=== PATIENT | male | born 1960 | race Caucasian/White ===

== ENCOUNTER 2017-12-13 16:32 | Inpatient (IN) | payer BC ==
[2017-12-13] MEDS ORDERED: AMPICILLIN/SULBACTAM 3GM/VIAL ONE ×2 (16:56→23:59)
[2017-12-13] MEDS ORDERED: NA CHLORIDE 0.9% 100 ML IV ONE (16:57)
[2017-12-13] MEDS ORDERED: VANCOMYCIN/NS 1 gm 1 GM/250 ML BAG ONE (16:57)
[2017-12-13] MEDS ORDERED: NA CHLORIDE 0.9% 1,000 ML ONE (16:57)
--- NOTE | 2017-12-13 17:10 | ER ---
Nurse's Notes [facility] Name: Wiley Anne Age: 56 yrs Sex: Male : 1960 Arrival Date: 12/13/2017 Time: 16:35 Bed 27 Private MD: Jordan Juarez Diagnosis: Cellulitis and acute lymphangitis of other parts of limb-right thumb;Other synovitis and tenosynovitis, right hand-thumb Presentation: 12/13 16:39 Presenting complaint: Patient states: my thumb is infected, about a week ago, went to tw2 drBarbie put on amoxicillin and it has gotten so much worse. Transition of care: patient was not received from another setting of care. Onset of symptoms was December 13, 2017. Care prior to arrival: None. 16:39 Method Of Arrival: Ambulatory tw2 16:39 Acuity: JASMIN 3 tw2 Historical: - Allergies: 16:41 No Known Allergies; tw2 - Home Meds: 16:41 Imbruvica 140 mg Oral cap 3 caps once daily [Active]; Ventolin Rotahaler/Rotacaps Inhl tw2 daily [Active]; amoxicillin-pot clavulanate 875-125 mg Oral tab 1 tab every 12 hours [Active]; montelukast 5 mg oral chew 2 tabs once daily [Active]; - PMHx: 16:41 CLL; LYMPHOMA; tw2 - Immunization history:: Adult Immunizations up to date. - Social history:: Smoking status: Patient/guardian denies using tobacco. - Family history:: pertinent for. Screenin:00 Abuse screen: Denies threats or abuse. Nutritional screening: No deficits noted. kb1 Tuberculosis screening: No symptoms or risk factors identified. Fall Risk None identified. Assessment: 17:00 General: Appears in no apparent distress. Behavior is calm, cooperative. Pain: Denies kb1 pain. Neuro: Level of Consciousness is awake, alert, obeys commands, Oriented to person, place, time, situation. Cardiovascular: Patient's skin is warm and dry. Respiratory: Airway is patent. GI: No signs and/or symptoms were reported involving the gastrointestinal system. : No signs and/or symptoms were reported regarding the genitourinary system. Derm: Wound noted right thumb. 18:46 Reassessment: Patient appears in no apparent distress at this time. Patient and/or kb1 family updated on plan of care and expected duration. Pain level reassessed. Patient is alert, oriented x 3, equal unlabored respirations, skin warm/dry/pink. Warm blanket provided, notified will be admitted. Vital Signs: 16:40 BP 145 / 98; Pulse 63; Resp 18; Temp 98.5(O); Pulse Ox 98% on R/A; Weight 58.97 kg (R); tw2 Height 5 ft. 2 in. (157.48 cm); Pain 10/10; 18:47 BP 152 / 87; Pulse 60; Resp 18; Pulse Ox 96% ; kb1 16:40 Body Mass Index 23.78 (58.97 kg, 157.48 cm) tw2 ED Course: 16:35 Patient arrived in ED. as 16:35 Jordan Juarez MD is Private Physician. as 16:40 Triage completed. tw2 16:40 Arm band placed on. tw2 16:49 Elizabeth Melo, MOSES is Primary Nurse. kb1 16:49 Giovanny Miller MD is Attending Physician. bubba 17:00 Patient has correct armband on for positive identification. Bed in low position. Call kb1 light in reach. Side rails up X 1. Pulse ox on. NIBP on. 17:00 No provider procedures requiring assistance completed. Inserted saline lock: 20 gauge kb1 in left forearm, using aseptic technique. Blood collected. 17:07 Jordan Juarez MD is Hospitalizing Provider. bubba 17:28 EKG done, by cytology technologist. reviewed by Giovanny Miller MD. at1 17:36 X-ray completed. Portable x-ray completed in exam room. Patient tolerated procedure kc2 well. 17:37 Hand Right 3 View XRAY In Process Unspecified. EDMS 17:37 Chest Single View XRAY In Process Unspecified. EDMS 19:58 Patient admitted, IV remains in place. kb1 Administered Medications: 17:15 Drug: NS 0.9% 1000 ml Route: IV; Rate: 125 ml/hr; Site: left forearm; kb1 19:58 Follow up: IV Status: Infusion continued upon admission kb1 17:15 Drug: Unasyn 3 grams Route: IVPB; Infused Over: 30 mins; Site: left forearm; kb1 17:52 Follow up: IV Status: Completed infusion kb1 17:52 Drug: vancoMYCIN 1 grams Route: IVPB; Infused Over: 2 hrs; Site: left forearm; kb1 19:57 Follow up: IV Status: Completed infusion kb1 Outcome: 17:10 Decision to Hospitalize by Provider. bubba 19:58 Admitted to Tele accompanied by tech, family with patient, via stretcher, room 211, kb1 Report called to Mady LOPES 19:58 Condition: stable 19:58 Instructed on the need for admit. 20:05 Patient left the ED. kb1 Signatures: Dispatcher [employer] Giovanny Vega MD MD cha Martinez, Amelia as gonzales, Amanda, artificial candy maker EKG Tat1 Yuli Culver RN RN tw2 Laurie Ambrocio2 Elizabeth Melo, RN RN kb1
--- NOTE | 2017-12-13 17:10 | EDPHYS ---
Physician Documentation [facility] Name: Wiley Anne Age: 56 yrs Sex: Male : 1960 Arrival Date: 12/13/2017 Time: 16:35 Bed 27 Private MD: Jordan Juarez ED Physician Giovanny Miller HPI: 12/13 16:54 This 56 yrs old Male presents to ER via Ambulatory with complaints of Finger bubba Swelling. 16:54 The patient or guardian reports decreased range of motion, injury, pain, swelling, bubba tenderness. The complaints affect the IP of right thumb, MCP of right thumb and CMC of right thumb. Context: The problem was sustained at home, resulted from an unknown cause. Onset: The symptoms/episode began/occurred 5 day(s) ago. Associated signs and symptoms: The patient has no apparent associated signs or symptoms. The patient has not experienced similar symptoms in the past. Historical: - Allergies: 16:41 No Known Allergies; tw2 - Home Meds: 16:41 Imbruvica 140 mg Oral cap 3 caps once daily [Active]; Ventolin Rotahaler/Rotacaps Inhl tw2 daily [Active]; amoxicillin-pot clavulanate 875-125 mg Oral tab 1 tab every 12 hours [Active]; montelukast 5 mg oral chew 2 tabs once daily [Active]; - PMHx: 16:41 CLL; LYMPHOMA; tw2 - Immunization history:: Adult Immunizations up to date. - Social history:: Smoking status: Patient/guardian denies using tobacco. - Family history:: pertinent for. ROS: 16:54 Constitutional: Negative for fever, chills, and weight loss, Eyes: Negative for injury, bubba pain, redness, and discharge, ENT: Negative for injury, pain, and discharge, Neck: Negative for injury, pain, and swelling, Cardiovascular: Negative for chest pain, palpitations, and edema, Respiratory: Negative for shortness of breath, cough, wheezing, and pleuritic chest pain, Abdomen/GI: Negative for abdominal pain, nausea, vomiting, diarrhea, and constipation, Back: Negative for injury and pain, : Negative for injury, bleeding, discharge, and swelling, Skin: Negative for injury, rash, and discoloration, Neuro: Negative for headache, weakness, numbness, tingling, and seizure, Psych: Negative for depression, anxiety, suicide ideation, homicidal ideation, and hallucinations, Allergy/Immunology: Negative for hives, rash, and allergies, Endocrine: Negative for neck swelling, polydipsia, polyuria, polyphagia, and marked weight changes, Hematologic/Lymphatic: Negative for swollen nodes, abnormal bleeding, and unusual bruising. 16:54 : Positive for 16:54 MS/extremity: Positive for decreased range of motion, laceration, swelling, tenderness, of the lateral aspect of right hand, palmar aspect of distal phalanx of right thumb and palmar aspect of proximal phalanx of right thumb. Exam: 16:54 Constitutional: This is a well developed, well nourished patient who is awake, alert, bubba and in no acute distress. Head/Face: Normocephalic, atraumatic. Eyes: Pupils equal round and reactive to light, extra-ocular motions intact. Lids and lashes normal. Conjunctiva and sclera are non-icteric and not injected. Cornea within normal limits. Periorbital areas with no swelling, redness, or edema. ENT: Nares patent. No nasal discharge, no septal abnormalities noted. Tympanic membranes are normal and external auditory canals are clear. Oropharynx with no redness, swelling, or masses, exudates, or evidence of obstruction, uvula midline. Mucous membranes moist. Neck: Trachea midline, no thyromegaly or masses palpated, and no cervical lymphadenopathy. Supple, full range of motion without nuchal rigidity, or vertebral point tenderness. No Meningismus. Chest/axilla: Normal chest wall appearance and motion. Nontender with no deformity. No lesions are appreciated. Cardiovascular: Regular rate and rhythm with a normal S1 and S2. No gallops, murmurs, or rubs. Normal PMI, no JVD. No pulse deficits. Respiratory: Lungs have equal breath sounds bilaterally, clear to auscultation and percussion. No rales, rhonchi or wheezes noted. No increased work of breathing, no retractions or nasal flaring. Abdomen/GI: Soft, non-tender, with normal bowel sounds. No distension or tympany. No guarding or rebound. No evidence of tenderness throughout. Back: No spinal tenderness. No costovertebral tenderness. Full range of motion. Male : Normal genitalia with no discharge or lesions. Skin: Warm, dry with normal turgor. Normal color with no rashes, no lesions, and no evidence of cellulitis. Neuro: Awake and alert, GCS 15, oriented to person, place, time, and situation. Cranial nerves II-XII grossly intact. Motor strength 5/5 in all extremities. Sensory grossly intact. Cerebellar exam normal. Normal gait. Psych: Awake, alert, with orientation to person, place and time. Behavior, mood, and affect are within normal limits. 16:54 Musculoskeletal/extremity: ROM: full active range of motion, full passive range of motion, Circulation is intact in all extremities. Sensation intact. DVT Exam: negative Homans' sign noted on exam, no appreciated bluish discoloration, pain, swelling, tenderness, erythema, increased warmth, that is moderate, of the lateral aspect of right hand. Vital Signs: 16:40 BP 145 / 98; Pulse 63; Resp 18; Temp 98.5(O); Pulse Ox 98% on R/A; Weight 58.97 kg (R); tw2 Height 5 ft. 2 in. (157.48 cm); Pain 10/10; 18:47 BP 152 / 87; Pulse 60; Resp 18; Pulse Ox 96% ; kb1 16:40 Body Mass Index 23.78 (58.97 kg, 157.48 cm) tw2 MDM: 16:49 Patient medically screened. [facility] 16:58 Data reviewed: vital signs, nurses notes, lab test result(s), EKG, radiologic studies. [facility] 12/13 16:53 Order name: CBC with Diff [facility] 12/13 16:53 Order name: Comprehensive Metabolic Panel; Complete Time: 18:[address] [facility] 12/13 16:53 Order name: Hand Right 3 View XRAY; Complete Time: 18:[address] [facility] 12/13 16:59 Order name: PT-INR; Complete Time: 18:[address] [facility] 12/13 16:59 Order name: Ptt, Activated; Complete Time: 18:[address] [facility] 12/13 17:44 Order name: Manual Differential EDMS 12/13 16:53 Order name: Wound dressing; Complete Time: 18:[address] [facility] 12/13 16:59 Order name: EKG; Complete Time: 17:[address] [facility] 12/13 16:59 Order name: Chest Single View XRAY; Complete Time: 18:[address] [facility] 04/10 17:28 Order name: CONS Physician Consult [facility] 12/13 17:28 Order name: CONS Physician Consult [facility] 12/13 16:59 Order name: EKG - Nurse/Tech; Complete Time: 18:15 bubba Administered Medications: 17:15 Drug: NS 0.9% 1000 ml Route: IV; Rate: 125 ml/hr; Site: left forearm; kb1 19:58 Follow up: IV Status: Infusion continued upon admission kb1 17:15 Drug: Unasyn 3 grams Route: IVPB; Infused Over: 30 mins; Site: left forearm; kb1 17:52 Follow up: IV Status: Completed infusion kb1 17:52 Drug: vancoMYCIN 1 grams Route: IVPB; Infused Over: 2 hrs; Site: left forearm; kb1 19:57 Follow up: IV Status: Completed infusion kb1 Disposition: 12/13/17 17:10 Hospitalization ordered by Jordan Juarez for Observation. Preliminary diagnosis are Cellulitis and acute lymphangitis of other parts of limb - right thumb, Other synovitis and tenosynovitis, right hand - thumb. - Bed requested for Telemetry/MedSurg (observation). - Status is Observation. kb1 - Condition is Stable. - Problem is new. - Symptoms have improved. UTI on Admission? No Signatures: Dispatcher [employer] [facility] Giovanny Miller MD MD cha Gallardo, Ana ag Wise, Tara, RN RN tw2 Elizabeth Melo RN RN kb1
[2017-12-13] MEDS ORDERED: MORPHINE 4 MG/ML SYR IV PRN (17:24)
[2017-12-13 17:34] LABS: Protime INR 1.03
[2017-12-13 17:41] LABS: Absolute Lymphocytes (CBC) 8.3 K/uL (0.7-4.9); Absolute Monocytes 0.8 K/uL (0.1-1.3); Absolute Neutrophil 3.2 K/uL (1.8-8.0); Basophils % 0.3 % (0-1.3); Eosinophils % 0.6 % (0-4.4); Hematocrit 47.2 % (39.6-49.0); Lymphocytes % 67.1 % (15.3-44.8); MCH 28.2 pg (27.0-35.0); MPV 9.8 fL (7.6-11.3); Monocytes % 6.6 % (3.3-12.3); RBC Red Blood Cell Count 5.55 M/uL (4.33-5.43)
--- NOTE | 2017-12-13 18:00 | RAD REPORT ---
EXAM DESCRIPTION: RAD - Chest Single View - 12/13/2017 5:38 pm CLINICAL HISTORY: Chest pain. COMPARISON: 08/07/2017 FINDINGS: Portable technique limits examination quality. The lungs are grossly clear. The heart is normal in size. No displaced fractures. IMPRESSION: No acute intrathoracic process suspected.
--- NOTE | 2017-12-13 18:01 | RAD REPORT ---
EXAM DESCRIPTION: RAD - Hand Right 3 View - 12/13/2017 5:37 pm CLINICAL HISTORY: Hand pain swelling. COMPARISON: None. FINDINGS: Moderate soft tissue swelling affects the first digit. No fracture or dislocation seen. No radiographic evidence of osteomyelitis.
[2017-12-13 18:32] LABS: Albumin 4.3 g/dL (3.2-5.5); Bilirubin Total 0.4 mg/dL (0.3-1.2); Protein, Total 6.8 g/dL (6.0-8.3)
[2017-12-13 19:46] LABS: Blood Morphology Comment NOT SEEN (NOT SEEN); Platelet Estimate DECR; Smudge Cells PRESENT
[2017-12-13 20:31] VITALS: BMI 23.6
[2017-12-13] MEDS: ACETAMINOPHEN 500 MG TAB PO PRN (21:04)
[2017-12-13] MEDS: NA CHLORIDE 0.9% 1,000 ML IV SCH (21:04)
[2017-12-13] MEDS: ENOXAPARIN 40 MG/0.4 ML SQ SCH (22:41)
[2017-12-14] MEDS ORDERED: NA CHLORIDE 0.9% 200 ML ONE (00:06)
[2017-12-14] MEDS: AMPICILLIN/SULBACT 3 GM in NA CHLORIDE 0.9% 100 ML IVPB SCH ×4 (00:35→17:48)
[2017-12-14] MEDS ORDERED: VANCOMYCIN 1GM/D5W 1 GM/200 ML BAG IV SCH (05:00)
[2017-12-14] MEDS ORDERED: VANCOMYCIN/NS 1 gm 1 GM/250 ML BAG IV SCH (05:00)
[2017-12-14 05:05] LABS: Absolute Monocytes 0.6 K/uL (0.1-1.3); Absolute Neutrophil 2.1 K/uL (1.8-8.0); Basophils % 0.4 % (0-1.3); Eosinophils % 0.8 % (0-4.4); Hematocrit 44.9 % (39.6-49.0); MCH 28.5 pg (27.0-35.0); MCV 84.8 fL (80-100); MPV 9.7 fL (7.6-11.3); Monocytes % 5.7 % (3.3-12.3)
[2017-12-14 05:08] LABS: Lymphocytes % 73.9 % (15.3-44.8)
[2017-12-14 05:24] LABS: Potassium 3.9 mEq/L (3.6-5.0)
[2017-12-14] MEDS: NA CHLORIDE 0.9% 1,000 ML IV SCH ×3 (05:34→16:29)
--- NOTE | 2017-12-14 08:00 | EKG ---
Test Date: 2017-12-13 Test Time: 17:17:55 Fabric Inspector: JOSH MEASUREMENT RESULTS: Intervals: Rate: 62 WI: 156 QRSD: 84 QT: 398 QTc: 403 [place]: P: 64 WI: 156 QRS: 57 T: 66 INTERPRETIVE STATEMENTS: Normal sinus rhythm Normal ECG Compared to ECG 04/12/2017 04:12:45 Sinus arrhythmia no longer present Electronically Signed On 12-14-17 07:58:39 CDT by Avtar Flores
--- NOTE | 2017-12-14 08:37 | P.HP ---
Certification for Inpatient Patient admitted to: Inpatient With expected LOS: >2 Midnights Patient will require the following post-hospital care: Rehabilitation Practitioner: I am a practitioner with admitting privileges, knowledge of patient current condition, hospital course, and medical plan of care. Services: Services provided to patient in accordance with Admission requirements found in Title 42 Section 412.3 of the Code of Federal Regulations Patient History Date of Service: 12/14/17 Primary Care Provider: Larry Reason for admission: infection of the right thumb History of Present Illness: Patient is an office patient of [employer]. Has a history of CLL and mild intermittent asthma. Came to the office on 12/09/17 with an infected thumb on the right hand. He was started on Augmentin in the office. However his reddness and swelling started getting worse on Tuesday night. Was having increasing pain and swelling and came to the ER. The patient had an xray which showed soft tissue swelling. He states he has occasional shooting pain in the thumb. No fevers or chills. Allergies No Known Allergies Allergy (Verified 10/27/16 08:18) Home Medications: Albuterol Inhaler [Ventolin Inhaler*] 2 puff IH Q6H PRN 09/15/16 Ibrutinib [Imbruvica] 420 mg PO DAILY 05/04/17 Montelukast [Singulair*] 10 mg PO DAILY 12/13/17 - Past Medical/Surgical History Has patient received pneumonia vaccine in the past: No Diabetic: No -: Chronic Lymphoma Leukemia -: Asthma -: I&D buttock abscess - Family History Father -: Lung disease, Diabetes, Cancer Mother -: Liver disease Brother -: Diabetes - Social History Smoking Status: Never smoker Alcohol use: No CD- Drugs: Yes Caffeine use: Yes Place of Residence: Home Review of Systems 10-point ROS is otherwise unremarkable Musculoskeletal: Hand Pain (right thumb) Physical Examination - Vital Signs Temperature: 97.5 F Blood Pressure: 138/75 Pulse: 61 Respirations: 18 Pulse Ox (%): 97 - Physical Exam General: Alert, In no apparent distress HEENT: Atraumatic, PERRLA, Mucous membr. moist/pink, EOMI, Sclerae nonicteric Neck: Supple, 2+ carotid pulse no bruit, No LAD, Without JVD or thyroid abnormality Respiratory: Clear to auscultation bilaterally, Normal air movement Cardiovascular: Regular rate/rhythm, Normal S1 S2 Gastrointestinal: Normal bowel sounds, No tenderness Musculoskeletal: No tenderness, Swelling (of the right forearm in comparison to the left), Erythema (of the right thumb spreading to the base) Integumentary: No rashes Neurological: Normal gait, Normal speech, Normal strength at 5/5 x4 extr, Normal tone, Normal affect Lymphatics: No axilla or inguinal lymphadenopathy - Studies Laboratory Data (last 24 hrs) 12/13/17 17:13: PT 12.2, INR 1.03, APTT 31.3 12/13/17 17:13: Sodium 137, Potassium 4.0, BUN 16, Creatinine 1.11, Glucose 117 , Total Bilirubin 0.4, AST 22, ALT 17, Alkaline Phosphatase 86 12/13/17 17:13: WBC 12.4 H, Hgb 15.7, Hct 47.2, Plt Count 99 L Assessment and Plan - Problems (Diagnosis) (1) Infected hand Current Visit: Yes Status: Acute Plan: Continue iv fluids, unasyn and vancomycin. Consult to Dr. Rudd. Most likely he will need surgery. OT evaluation after surgery (2) CLL (chronic lymphocytic leukemia) Current Visit: No Status: Chronic Plan: Will monitor his cbc. He has brought his ibrutinib. Which he can continue taking (3) Asthma, mild intermittent, well-controlled Current Visit: Yes Status: Acute Plan: Continue singular. Can use his own inhalers Discharge Plan: Home Plan to discharge in: 48 Hours - Advance Directives Does patient have a Living Will: No Does patient have a Durable POA for Healthcare: No - Code Status/Comfort Care Code Status Assessed: No Code Status: Full Code Physician Review: Patient Assessed, Agree with Above Assessment and Plan Critical Care: No Time Spent Managing Pts Care (In Minutes): 45
[2017-12-14] MEDS: IBRUTINIB 420 MG PO SCH (09:00)
[2017-12-14] MEDS: MONTELUKAST 10 MG TAB PO SCH (09:23)
[2017-12-14] MEDS: PANTOPRAZOLE 40MG TABLET PO SCH (09:23)
[2017-12-14] MEDS: ACETAMINOPHEN 500 MG TAB PO PRN (10:54)
[2017-12-14] MEDS ORDERED: MIDAZOLAM HCL 2 MG/2 ML INJ ONE (13:10)
[2017-12-14] MEDS ORDERED: LIDOCAINE 2% MPF 5 ML VIAL ONE (13:10)
[2017-12-14] MEDS ORDERED: PROPOFOL 200 MG/20 ML VIAL IV ONE (13:10)
[2017-12-14] MEDS ORDERED: KETOROLAC 30 MG/ML INJ ONE (13:10)
[2017-12-14] MEDS ORDERED: FENTANYL CITR 100 MCG/2 ML ONE (13:14)
[2017-12-14] MEDS: SILVER SULFADIAZINE 1% 25 GM TOP SCH (14:07)
[2017-12-14] MEDS: MEPERIDINE HCL 50 MG/ML AMP ONE ×2 (14:21→14:28)
[2017-12-14] MEDS ORDERED: HYDROCODONE/APAP 10/325 TAB PO PRN ×2 (14:38→15:22)
[2017-12-14] MEDS ORDERED: MEPERIDINE HCL 50 MG/ML AMP IM SCH ×2 (15:00→16:00)
[2017-12-14] MEDS: ONDANSETRON 4 MG/2 ML VIAL IV PRN ×2 (16:29→21:28)
[2017-12-14] MEDS: MEPERIDINE HCL 50 MG/ML AMP IM SCH ×2 (17:00→21:00)
[2017-12-14] MEDS: ENOXAPARIN 40 MG/0.4 ML SQ SCH (21:00)
[2017-12-14] MEDS: VANCOMYCIN/NS 1 gm 1 GM/250 ML BAG IV SCH (23:19)
[2017-12-15] MEDS: MEPERIDINE HCL 50 MG/ML AMP IM SCH ×6 (00:35→21:00)
[2017-12-15] MEDS: AMPICILLIN/SULBACT 3 GM in NA CHLORIDE 0.9% 100 ML IVPB SCH ×4 (01:47→17:50)
[2017-12-15] MEDS: NA CHLORIDE 0.9% 1,000 ML IV SCH (01:48)
--- NOTE | 2017-12-15 04:40 | OP ---
Surgeon: Ike Rudd MD Preoperative Diagnosis: Infected right thumb. Postoperative Diagnosis: Infected right thumb. Procedure Performed: Debridement of skin, subcutaneous tissue and removal of nail plate. Anesthesia: General. Procedure In Detail: After satisfactory induction of general anesthesia, the right arm was prepped with Betadine scrub, Betadine paint, and dry sterile drapes were applied in the usual manner. The arm was elevated and tourniquet was inflated to 250 mmHg. The hand was placed on a [place] table. A periosteal elevator was used to remove the nail plate and debridement performed. Proximal incision was made up the radial side of the proximal phalanx, then angulating over the proximal phalanx. The cultures were taken of the purulent fluid and the wound was curetted and jet lavaged, irrigated with 1 L of dilute Betadine solution. Tourniquet released. Electrocautery used for hemostasis. Wound was packed with Silvadene cream and 2-inch Rosemary and Kerlix dressing. The patient tolerated the procedure well and returned to Recovery. ERNST/CHASE Voice ID: [id number] Report ID: [id number] MTDJessica
[2017-12-15] MEDS: PANTOPRAZOLE 40MG TABLET PO SCH (06:30)
[2017-12-15] MEDS ORDERED: PROMETHAZINE 25 MG/ML VIAL IV PRN (08:34)
[2017-12-15] MEDS ORDERED: HOME MED 1 EA UNK (Albuterol Inhaler [Ventolin Inhaler*] 2 PUFF) IH PRN (08:35)
--- NOTE | 2017-12-15 08:38 | P.PN ---
Subjective Date of Service: 12/15/17 Primary Care Provider: Larry Chief Complaint: infection of the right thumb Subjective: Improving (Had debridgement yesterday. Is scheduled for closure today) Review of Systems 10-point ROS is otherwise unremarkable Gastrointestinal: Nausea, Vomiting Physical Examination - Vital Signs Temperature: 98.5 F Blood Pressure: 143/81 Pulse: 76 Respirations: 18 Pulse Ox (%): 94 - Physical Exam General: Alert, In no apparent distress HEENT: Atraumatic, PERRLA, EOMI Neck: Supple, JVD not distended Respiratory: Clear to auscultation bilaterally, Normal air movement Cardiovascular: Regular rate/rhythm, Normal S1 S2 Gastrointestinal: Normal bowel sounds, No tenderness Musculoskeletal: No tenderness, Other (right thumb is wrapped, post surgery) Integumentary: No rashes Neurological: Normal speech, Normal tone, Normal affect Lymphatics: No axilla or inguinal lymphadenopathy Assessment & Plan - Problems (Diagnosis) (1) Infected hand Onset Date: 12/14/17 Current Visit: Yes Status: Acute Plan: Continue iv fluids, unasyn and vancomycin. Consult to Dr. Rudd. Plans for surgical closure today OT evaluation after surgery (2) CLL (chronic lymphocytic leukemia) Onset Date: 12/14/17 Current Visit: Yes Status: Chronic Plan: Will monitor his cbc. He has brought his ibrutinib. Which he can continue taking (3) Asthma, mild intermittent, well-controlled Onset Date: 12/14/17 Current Visit: Yes Status: Acute Plan: Continue singular. Can use his own inhalers Discharge Plan: Home Plan to discharge in: 48 Hours - Code Status/Comfort Care Code Status Assessed: No Code Status: Full Code Physician Review: Patient Assessed, Agree with Above Assessment and Plan Critical Care: No Time Spent Managing Pts Care (In Minutes): 25
[2017-12-15] MEDS: ACETAMINOPHEN 325 MG TABLET PO SCH ×2 (08:44→17:00)
[2017-12-15] MEDS: IBRUTINIB 420 MG PO SCH (08:44)
[2017-12-15] MEDS: MONTELUKAST 10 MG TAB PO SCH (08:44)
[2017-12-15] MEDS ORDERED: MONTELUKAST 10 MG TAB PO SCH (09:00)
[2017-12-15] MEDS ORDERED: IBRUTINIB 420 MG PO SCH (09:00)
[2017-12-15] MEDS: SILVER SULFADIAZINE 1% 25 GM TOP SCH ×3 (09:00→21:00)
--- NOTE | 2017-12-15 09:27 | RAD REPORT ---
EXAM DESCRIPTION: Charley Fleming And Renae (2 Views)12/15/2017 9:09 am CLINICAL HISTORY: Shortness of breath COMPARISON: December 13, 2017 FINDINGS: The lungs appear clear of acute infiltrate. The heart is normal size IMPRESSION: No acute abnormalities displayed
[2017-12-15] MEDS: ACETAMINOPHEN 500 MG TAB PO PRN ×2 (13:12→22:50)
--- NOTE | 2017-12-15 14:52 | PN ---
The patient's wound is inspected. The flap is the same color, it is purple blue. There is no significant bleeding. Dressing changes b.i.d. I will plan surgery possibly next week for closure. RICHY Voice ID: [id number] Report ID: [id number] MTDD
[2017-12-15] MEDS: VANCOMYCIN/NS 1 gm 1 GM/250 ML BAG IV SCH (17:00)
[2017-12-15] MEDS: ENOXAPARIN 40 MG/0.4 ML SQ SCH (20:56)
[2017-12-16] MEDS: AMPICILLIN/SULBACT 3 GM in NA CHLORIDE 0.9% 100 ML IVPB SCH ×3 (00:25→10:41)
[2017-12-16] MEDS: NA CHLORIDE 0.9% 1,000 ML IV SCH ×3 (00:26→16:00)
[2017-12-16] MEDS: ACETAMINOPHEN 325 MG TABLET PO SCH ×3 (01:00→17:00)
[2017-12-16] MEDS: MEPERIDINE HCL 50 MG/ML AMP IM SCH ×6 (01:00→21:00)
[2017-12-16] MEDS: PANTOPRAZOLE 40MG TABLET PO SCH (05:20)
[2017-12-16] MEDS: IBRUTINIB 420 MG PO SCH (09:00)
[2017-12-16] MEDS: SILVER SULFADIAZINE 1% 25 GM TOP SCH ×2 (09:00→21:00)
--- NOTE | 2017-12-16 09:51 | P.PN ---
Subjective Date of Service: 12/16/17 Primary Care Provider: Larry Chief Complaint: infection of the right thumb Subjective: Improving (plans for surgery on Tuesday) Review of Systems 10-point ROS is otherwise unremarkable Musculoskeletal: Hand Pain Physical Examination - Vital Signs Temperature: 98.5 F Blood Pressure: 155/84 Pulse: 70 Respirations: 18 Pulse Ox (%): 97 - Physical Exam General: Alert, In no apparent distress HEENT: Atraumatic, PERRLA, EOMI Neck: Supple, JVD not distended Respiratory: Clear to auscultation bilaterally, Normal air movement Cardiovascular: Regular rate/rhythm, Normal S1 S2 Gastrointestinal: Normal bowel sounds, No tenderness Musculoskeletal: No tenderness Integumentary: No rashes Neurological: Normal speech, Normal tone, Normal affect Lymphatics: No axilla or inguinal lymphadenopathy Assessment & Plan - Problems (Diagnosis) (1) Infected hand Onset Date: 12/14/17 Current Visit: Yes Status: Acute Plan: Plans for closure early next week. has MRSA in the wound. However senstive to bactrim and tetracyclines. As well as the vancomycin he is curently on (2) CLL (chronic lymphocytic leukemia) Onset Date: 12/14/17 Current Visit: Yes Status: Chronic Plan: Will monitor his cbc. He has brought his ibrutinib. Which he can continue taking (3) Asthma, mild intermittent, well-controlled Onset Date: 12/14/17 Current Visit: Yes Status: Acute Plan: Continue singular. Can use his own inhalers Discharge Plan: Home Plan to discharge in: Greater than 2 days - Code Status/Comfort Care Code Status Assessed: No Code Status: Full Code Physician Review: Patient Assessed, Agree with Above Assessment and Plan Critical Care: No Time Spent Managing Pts Care (In Minutes): 25
[2017-12-16] MEDS: MONTELUKAST 10 MG TAB PO SCH (10:34)
[2017-12-16] MEDS: VANCOMYCIN 1.25 GM in NA CHLORIDE 0.9% 250 ML IV SCH (12:31)
[2017-12-16] MEDS: ACETAMINOPHEN 500 MG TAB PO PRN (14:32)
--- NOTE | 2017-12-16 19:35 | PN ---
Subjective: The patient's wound is improving. The swelling is down. Still discolored purple black, getting Silvadene cream dressing changes b.i.d. Plan: Probably surgery next week, may be Tuesday. RICHY Voice ID: [id number] Report ID: [id number]
[2017-12-16] MEDS: ENOXAPARIN 40 MG/0.4 ML SQ SCH (21:00)
[2017-12-17] MEDS: MEPERIDINE HCL 50 MG/ML AMP IM SCH ×6 (00:24→20:06)
[2017-12-17] MEDS: NA CHLORIDE 0.9% 1,000 ML IV SCH ×2 (00:27→12:00)
[2017-12-17] MEDS: ACETAMINOPHEN 325 MG TABLET PO SCH ×3 (00:28→14:18)
[2017-12-17] MEDS: VANCOMYCIN 1.25 GM in NA CHLORIDE 0.9% 250 ML IV SCH ×2 (05:32→23:00)
[2017-12-17] MEDS: PANTOPRAZOLE 40MG TABLET PO SCH (05:32)
--- NOTE | 2017-12-17 08:28 | P.PN ---
Subjective Date of Service: 12/17/17 Primary Care Provider: Larry Chief Complaint: infection of the right thumb Subjective: No new changes Review of Systems 10-point ROS is otherwise unremarkable Physical Examination - Vital Signs Temperature: 98.2 F Blood Pressure: 151/87 Pulse: 58 Respirations: 18 Pulse Ox (%): 97 - Physical Exam General: Alert, In no apparent distress HEENT: Atraumatic, PERRLA, EOMI Neck: Supple, JVD not distended Respiratory: Clear to auscultation bilaterally, Normal air movement Cardiovascular: Regular rate/rhythm, Normal S1 S2 Gastrointestinal: Normal bowel sounds, No tenderness Musculoskeletal: No tenderness Integumentary: No rashes Neurological: Normal speech, Normal tone, Normal affect Lymphatics: No axilla or inguinal lymphadenopathy Assessment & Plan - Problems (Diagnosis) (1) Infected hand Onset Date: 12/14/17 Current Visit: Yes Status: Acute Plan: Plans for closure early next week. has MRSA in the wound. However senstive to bactrim and tetracyclines. As well as the vancomycin he is curently on (2) CLL (chronic lymphocytic leukemia) Onset Date: 12/14/17 Current Visit: Yes Status: Chronic Plan: Will monitor his cbc. He has brought his ibrutinib. Which he can continue taking (3) Asthma, mild intermittent, well-controlled Onset Date: 12/14/17 Current Visit: Yes Status: Acute Plan: Continue singular. Can use his own inhalers Discharge Plan: Home Plan to discharge in: 48 Hours - Code Status/Comfort Care Code Status Assessed: No Code Status: Full Code Physician Review: Patient Assessed, Agree with Above Assessment and Plan Critical Care: No Time Spent Managing Pts Care (In Minutes): 20
[2017-12-17] MEDS: MONTELUKAST 10 MG TAB PO SCH (08:50)
[2017-12-17] MEDS: SILVER SULFADIAZINE 1% 25 GM TOP SCH ×2 (08:50→20:53)
[2017-12-17] MEDS: IBRUTINIB 420 MG PO SCH (08:51)
[2017-12-17] MEDS: ENOXAPARIN 40 MG/0.4 ML SQ SCH (20:06)
[2017-12-18] MEDS: ACETAMINOPHEN 325 MG TABLET PO SCH ×3 (00:55→15:50)
[2017-12-18] MEDS: MEPERIDINE HCL 50 MG/ML AMP IM SCH ×7 (00:58→21:00)
[2017-12-18] MEDS: PANTOPRAZOLE 40MG TABLET PO SCH (06:31)
[2017-12-18] MEDS: SILVER SULFADIAZINE 1% 25 GM TOP SCH ×2 (09:00→21:00)
[2017-12-18] MEDS: IBRUTINIB 420 MG PO SCH (09:00)
[2017-12-18] MEDS: MONTELUKAST 10 MG TAB PO SCH (09:01)
[2017-12-18] MEDS ORDERED: HYDRALAZINE HCL 20 MG/ML VIAL IV PRN (09:34)
--- NOTE | 2017-12-18 09:34 | P.PN ---
Subjective Date of Service: 12/18/17 Primary Care Provider: Larry Chief Complaint: infection of the right thumb Subjective: No new changes Review of Systems 10-point ROS is otherwise unremarkable Physical Examination - Vital Signs Temperature: 98.4 F Blood Pressure: 182/92 Pulse: 59 Respirations: 16 Pulse Ox (%): 98 - Physical Exam General: Alert, In no apparent distress HEENT: Atraumatic, PERRLA, EOMI Neck: Supple, JVD not distended Respiratory: Clear to auscultation bilaterally, Normal air movement Cardiovascular: Regular rate/rhythm, Normal S1 S2 Gastrointestinal: Normal bowel sounds, No tenderness Musculoskeletal: No tenderness Integumentary: No rashes Neurological: Normal speech, Normal tone, Normal affect Lymphatics: No axilla or inguinal lymphadenopathy Assessment & Plan - Problems (Diagnosis) (1) Infected hand Onset Date: 12/14/17 Current Visit: Yes Status: Acute Plan: Plans for closure early next week. has MRSA in the wound. However senstive to bactrim and tetracyclines. As well as the vancomycin he is curently on (2) CLL (chronic lymphocytic leukemia) Onset Date: 12/14/17 Current Visit: Yes Status: Chronic Plan: Will monitor his cbc. He has brought his ibrutinib. Which he can continue taking (3) Asthma, mild intermittent, well-controlled Onset Date: 12/14/17 Current Visit: Yes Status: Acute Plan: Continue singular. Can use his own inhalers Discharge Plan: Home Plan to discharge in: 48 Hours - Code Status/Comfort Care Code Status Assessed: No Code Status: Full Code Physician Review: Patient Assessed, Agree with Above Assessment and Plan Critical Care: No Time Spent Managing Pts Care (In Minutes): 20
[2017-12-18 09:41] LABS: Absolute Lymphocytes (CBC) 7.2 K/uL (0.7-4.9); Absolute Monocytes 0.5 K/uL (0.1-1.3); Absolute Neutrophil 2.7 K/uL (1.8-8.0); Basophils % 0.6 % (0-1.3); Eosinophils % 0.9 % (0-4.4); Hematocrit 48.7 % (39.6-49.0); Lymphocytes % 68.2 % (15.3-44.8); MCH 28.3 pg (27.0-35.0); MCV 85.3 fL (80-100); MPV 9.2 fL (7.6-11.3); Monocytes % 4.5 % (3.3-12.3); RBC Red Blood Cell Count 5.71 M/uL (4.33-5.43)
[2017-12-18 10:29] LABS: Potassium 3.6 mEq/L (3.6-5.0)
[2017-12-18 13:39] LABS: Platelet Estimate DECR
[2017-12-18 13:40] LABS: Blood Morphology Comment NOT SEEN (NOT SEEN)
[2017-12-18] MEDS: VANCOMYCIN 1.25 GM in NA CHLORIDE 0.9% 250 ML IV SCH (15:51)
[2017-12-18] MEDS: ENOXAPARIN 40 MG/0.4 ML SQ SCH (21:00)
[2017-12-19] MEDS: ACETAMINOPHEN 325 MG TABLET PO SCH ×4 (00:54→23:53)
[2017-12-19] MEDS: MEPERIDINE HCL 50 MG/ML AMP IM SCH ×7 (00:59→23:56)
[2017-12-19] MEDS: PANTOPRAZOLE 40MG TABLET PO SCH (05:52)
[2017-12-19] MEDS: SILVER SULFADIAZINE 1% 25 GM TOP SCH ×3 (08:16→22:41)
[2017-12-19] MEDS: IBRUTINIB 420 MG PO SCH (08:46)
[2017-12-19] MEDS: MONTELUKAST 10 MG TAB PO SCH (09:00)
--- NOTE | 2017-12-19 10:43 | P.PN ---
Subjective Date of Service: 12/19/17 Primary Care Provider: Larry Chief Complaint: infection of the right thumb Subjective: No new changes Review of Systems 10-point ROS is otherwise unremarkable Physical Examination - Vital Signs Temperature: 97.7 F Blood Pressure: 159/95 Pulse: 59 Respirations: 18 Pulse Ox (%): 93 - Physical Exam General: Alert, In no apparent distress HEENT: Atraumatic, PERRLA, EOMI Neck: Supple, JVD not distended Respiratory: Clear to auscultation bilaterally, Normal air movement Cardiovascular: Regular rate/rhythm, Normal S1 S2 Gastrointestinal: Normal bowel sounds, No tenderness Musculoskeletal: No tenderness Integumentary: No rashes Neurological: Normal speech, Normal tone, Normal affect Lymphatics: No axilla or inguinal lymphadenopathy Assessment & Plan - Problems (Diagnosis) (1) Infected hand Onset Date: 12/14/17 Current Visit: Yes Status: Acute Plan: Plans for closure early next week. has MRSA in the wound. However senstive to bactrim and tetracyclines. As well as the vancomycin he is curently on (2) CLL (chronic lymphocytic leukemia) Onset Date: 12/14/17 Current Visit: Yes Status: Chronic Plan: Will monitor his cbc. He has brought his ibrutinib. Which he can continue taking (3) Asthma, mild intermittent, well-controlled Onset Date: 12/14/17 Current Visit: Yes Status: Acute Plan: Continue singular. Can use his own inhalers Discharge Plan: Home Plan to discharge in: 48 Hours - Code Status/Comfort Care Code Status Assessed: No Code Status: Full Code Physician Review: Patient Assessed, Agree with Above Assessment and Plan Critical Care: No Time Spent Managing Pts Care (In Minutes): 20
--- NOTE | 2017-12-19 11:50 | PN ---
Subjective: The patient's wound is unchanged, is still black discoloration. Minor bleeding through edges, was taken to surgery tomorrow, to be n.p.o. at midnight. We will debride them, possibly skin graft with a file. RICHY Voice ID: [id number] Report ID: [id number]
[2017-12-19] MEDS: VANCOMYCIN 1.25 GM in NA CHLORIDE 0.9% 250 ML IV SCH (12:13)
[2017-12-19] MEDS: ENOXAPARIN 40 MG/0.4 ML SQ SCH (21:00)
[2017-12-20] MEDS: VANCOMYCIN 1.25 GM in NA CHLORIDE 0.9% 250 ML IV SCH ×2 (04:34→22:33)
[2017-12-20] MEDS: PANTOPRAZOLE 40MG TABLET PO SCH (04:35)
[2017-12-20] MEDS: MEPERIDINE HCL 50 MG/ML AMP IM SCH ×4 (04:35→16:32)
[2017-12-20 06:12] LABS: Absolute Lymphocytes (CBC) 3.3 K/uL (0.7-4.9); Absolute Monocytes 0.5 K/uL (0.1-1.3); Absolute Neutrophil 4.8 K/uL (1.8-8.0); Basophils % 0.3 % (0-1.3); Hematocrit 47.4 % (39.6-49.0); Lymphocytes % 37.8 % (15.3-44.8); MCH 28.4 pg (27.0-35.0); MCV 85.4 fL (80-100); MPV 9.3 fL (7.6-11.3); Monocytes % 6.2 % (3.3-12.3); RBC Red Blood Cell Count 5.55 M/uL (4.33-5.43)
[2017-12-20 06:27] LABS: Potassium 3.7 mEq/L (3.6-5.0)
[2017-12-20] MEDS: MONTELUKAST 10 MG TAB PO SCH (08:09)
--- NOTE | 2017-12-20 08:38 | P.PN ---
Subjective Date of Service: 12/20/17 Primary Care Provider: Larry Chief Complaint: infection of the right thumb Subjective: No new changes Review of Systems 10-point ROS is otherwise unremarkable Physical Examination - Vital Signs Temperature: 97.2 F Blood Pressure: 123/75 Pulse: 66 Respirations: 18 Pulse Ox (%): 97 - Physical Exam General: Alert, In no apparent distress HEENT: Atraumatic, PERRLA, EOMI Neck: Supple, JVD not distended Respiratory: Clear to auscultation bilaterally, Normal air movement Cardiovascular: Regular rate/rhythm, Normal S1 S2 Gastrointestinal: Normal bowel sounds, No tenderness Musculoskeletal: No tenderness Integumentary: No rashes Neurological: Normal speech, Normal tone, Normal affect Lymphatics: No axilla or inguinal lymphadenopathy Assessment & Plan - Problems (Diagnosis) (1) Infected hand Onset Date: 12/14/17 Current Visit: Yes Status: Acute Plan: closure today. Possible discharge if ok with Dr. Rudd (2) CLL (chronic lymphocytic leukemia) Onset Date: 12/14/17 Current Visit: Yes Status: Chronic Plan: Will monitor his cbc. He has brought his ibrutinib. Which he can continue taking (3) Asthma, mild intermittent, well-controlled Onset Date: 12/14/17 Current Visit: Yes Status: Acute Plan: Continue singular. Can use his own inhalers Discharge Plan: Home Plan to discharge in: 24 Hours - Code Status/Comfort Care Code Status Assessed: No Code Status: Full Code Physician Review: Patient Assessed, Agree with Above Assessment and Plan Critical Care: No Time Spent Managing Pts Care (In Minutes): 20
[2017-12-20] MEDS: SILVER SULFADIAZINE 1% 25 GM TOP SCH ×2 (09:00→20:53)
[2017-12-20] MEDS: IBRUTINIB 420 MG PO SCH (09:00)
[2017-12-20] MEDS: ACETAMINOPHEN 325 MG TABLET PO SCH ×2 (09:02→17:00)
[2017-12-20] MEDS ORDERED: Ringers Lactate 1,000 ML IV ONE (11:21)
[2017-12-20] MEDS ORDERED: PROPOFOL 200 MG/20 ML VIAL IV ONE (11:45)
[2017-12-20] MEDS ORDERED: LIDOCAINE 2% MPF 5 ML VIAL ONE (11:45)
[2017-12-20] MEDS ORDERED: MIDAZOLAM HCL 2 MG/2 ML INJ ONE (11:45)
[2017-12-20] MEDS ORDERED: ONDANSETRON 4 MG/2 ML VIAL ONE (11:46)
[2017-12-20] MEDS ORDERED: FENTANYL CITR 100 MCG/2 ML ONE (11:46)
[2017-12-20] MEDS: MEPERIDINE HCL 50 MG/ML AMP ONE ×3 (12:49→13:07)
[2017-12-20] MEDS ORDERED: MEPERIDINE HCL 50 MG/ML AMP ONE (13:06)
[2017-12-20] MEDS: ENOXAPARIN 40 MG/0.4 ML SQ SCH (20:52)
--- NOTE | 2017-12-21 00:33 | OP ---
Surgeon: Ike Rudd MD Geodetic Technician: Valentin. Preoperative Diagnosis: Open wound of the right thumb. Postoperative Diagnosis: Open wound of the right thumb. Procedure Performed: Debridement of skin and subcu tissue, simple closure of 3-cm wound. Anesthesia: General. Procedure In Detail: After satisfactory induction of general anesthesia, the right hand was prepped with Betadine scrub, Betadine paint. Dry sterile drapes were applied in the usual manner. Tenotomy scissors, forceps, and curette were used to debride the skin and subcu tissue as needed. The wound w as jet lavaged, irrigated with 2 L of dilute Betadine solution. Electrocautery was used for hemostas is. The wound was closed of the thumb with horizontal mattress 4-0 Prolene, dressed with Xeroform an d 2-inch Rosemary. The patient tolerated the procedure well and returned to recovery. ERNST/CHASE Voice ID: [id number] Report ID: [id number]
[2017-12-21] MEDS: ACETAMINOPHEN 325 MG TABLET PO SCH ×3 (05:25→16:17)
[2017-12-21] MEDS: PANTOPRAZOLE 40MG TABLET PO SCH (05:25)
[2017-12-21 06:49] LABS: Absolute Lymphocytes (CBC) 3.9 K/uL (0.7-4.9); Absolute Monocytes 0.6 K/uL (0.1-1.3); Absolute Neutrophil 3.2 K/uL (1.8-8.0); Basophils % 0.7 % (0-1.3); Eosinophils % 1.4 % (0-4.4); Hematocrit 46.3 % (39.6-49.0); MCH 28.3 pg (27.0-35.0); MCV 84.6 fL (80-100); MPV 9.6 fL (7.6-11.3); Monocytes % 7.9 % (3.3-12.3); RBC Red Blood Cell Count 5.47 M/uL (4.33-5.43)
[2017-12-21 07:20] LABS: Potassium 3.9 mEq/L (3.6-5.0)
[2017-12-21] MEDS: IBRUTINIB 420 MG PO SCH (09:00)
[2017-12-21] MEDS: SILVER SULFADIAZINE 1% 25 GM TOP SCH ×2 (09:17→21:00)
[2017-12-21] MEDS: MONTELUKAST 10 MG TAB PO SCH (09:17)
--- NOTE | 2017-12-21 10:24 | P.DS ---
Admission Date: 12/13/17 Discharge Date: 12/21/17 Primary Care Provider: Larry Disposition: ROUTINE DISCHARGE Discharge Condition: GOOD Reason for Admission: infection of the right thumb - Problems (1) Infected hand Onset Date: 12/14/17 Current Visit: Yes Status: Acute (2) CLL (chronic lymphocytic leukemia) Onset Date: 12/14/17 Current Visit: Yes Status: Chronic (3) Asthma, mild intermittent, well-controlled Onset Date: 12/14/17 Current Visit: Yes Status: Acute Brief History of Present Illness: Patient is an office patient of [facility]. Has a history of CLL and mild intermittent asthma. Came to the office on 12/09/17 with an infected thumb on the right hand. He was started on Augmentin in the office. However his reddness and swelling started getting worse on Tuesday night. Was having increasing pain and swelling and came to the ER. The patient had an xray which showed soft tissue swelling. He states he has occasional shooting pain in the thumb. No fevers or chills. Hospital Course: Patient was admitted. started on vancomycin and unasyn. Was surgical debrided by Dr. Rudd. He grew MRSA from the wound. Will discharge him on bactrim. Which he is sensitive too. Follow up with Dr. Rudd in a week, follow up in the office in 2 weeks. Vital Signs/Physical Exam: Temp Pulse Resp BP Pulse Ox 97.7 F 62 18 117/75 97 12/21/17 04:00 12/21/17 04:00 12/21/17 04:00 12/21/17 04:00 12/21/17 04:00 General: Alert, In no apparent distress HEENT: Atraumatic, PERRLA, EOMI Neck: Supple, JVD not distended Respiratory: Clear to auscultation bilaterally, Normal air movement Cardiovascular: Regular rate/rhythm, Normal S1 S2 Gastrointestinal: Normal bowel sounds, No tenderness Musculoskeletal: No tenderness Integumentary: No rashes Neurological: Normal speech, Normal tone, Normal affect Lymphatics: No axilla or inguinal lymphadenopathy Laboratory Data at Discharge: WBC 7.9 K/uL (4.3-10.9) 12/21/17 06:15 Hgb 15.5 g/dL (13.6-17.9) 12/21/17 06:15 Hct 46.3 % (39.6-49.0) 12/21/17 06:15 Plt Count 107 K/uL (152-406) L 12/21/17 06:15 PT 12.2 SECONDS (9.5-12.5) 12/13/17 17:13 INR 1.03 12/13/17 17:13 APTT 31.3 SECONDS (24.3-36.9) 12/13/17 17:13 Sodium 137 mEq/L (135-145) 12/21/17 06:15 Potassium 3.9 mEq/L (3.6-5.0) 12/21/17 06:15 BUN 17 mg/dL (6-20) 12/21/17 06:15 Creatinine 1.06 mg/dL (0.61-1.24) 12/21/17 06:15 Glucose 86 mg/dL (65-120) 12/21/17 06:15 Total Bilirubin 0.4 mg/dL (0.3-1.2) 12/13/17 17:13 AST 22 IU/L (10-42) 12/13/17 17:13 ALT 17 IU/L (10-60) 12/13/17 17:13 Alkaline Phosphatase 86 IU/L (42-121) 12/13/17 17:13 Home Medications: Albuterol Inhaler [Ventolin Inhaler*] 2 puff IH Q6H PRN 09/15/16 Ibrutinib [Imbruvica] 420 mg PO DAILY 05/04/17 Montelukast [Singulair*] 10 mg PO DAILY 12/13/17 Smz./Tmp. [Bactrim Ds 800 MG/160 MG] 1 tab PO BID 14 Days #28 tab 12/21/17 New Medications: Smz./Tmp. [Bactrim Ds 800 MG/160 MG] 1 tab PO BID 14 Days #28 tab Diet: Regular Activity: Ad troy Followup: Jordan Juarez MD [Primary Care Provider] - 1-2 Weeks Ike Rudd MD [ACTIVE - CAN ADMIT] - 1 Week Time spent managing pt's care (in minutes): 30
[2017-12-21] MEDS: ACETAMINOPHEN 500 MG TAB PO PRN (13:17)
[2017-12-21] MEDS: VANCOMYCIN 1.25 GM in NA CHLORIDE 0.9% 250 ML IV SCH (16:17)
[2017-12-21] MEDS: ENOXAPARIN 40 MG/0.4 ML SQ SCH ×2 (21:00→22:08)
[2017-12-22] MEDS: ACETAMINOPHEN 325 MG TABLET PO SCH ×2 (01:03→09:00)
[2017-12-22 01:34] VITALS: O2SAT 97
[2017-12-22] MEDS: PANTOPRAZOLE 40MG TABLET PO SCH (05:42)
[2017-12-22 06:11] LABS: Absolute Lymphocytes (CBC) 5.1 K/uL (0.7-4.9); Absolute Monocytes 0.7 K/uL (0.1-1.3); Basophils % 0.5 % (0-1.3); Eosinophils % 1.4 % (0-4.4); Hematocrit 45.8 % (39.6-49.0); Lymphocytes % 56.4 % (15.3-44.8); MCV 85.1 fL (80-100); MPV 9.6 fL (7.6-11.3); RBC Red Blood Cell Count 5.37 M/uL (4.33-5.43)
--- NOTE | 2017-12-22 08:40 | PN ---
The patient's wound is improving. It was closed yesterday, there was still some gapping, which I lef t but the swelling is going down. We will do Xeroform dressings. He should plan discharge on . ERNST/CHASE Voice ID: [id number] Report ID: [id number]
[2017-12-22 08:45] VITALS: BP 155/78; TEMP 96.7
[2017-12-22] MEDS: MONTELUKAST 10 MG TAB PO SCH (09:00)
[2017-12-22] MEDS: IBRUTINIB 420 MG PO SCH (09:00)
[2017-12-22] MEDS: SILVER SULFADIAZINE 1% 25 GM TOP SCH (09:00)
--- NOTE | 2017-12-22 09:22 | P.PN ---
Subjective Date of Service: 12/22/17 Primary Care Provider: Larry Chief Complaint: infection of the right thumb Subjective: No new changes (discharge held yesterday by Dr. Rudd.) Review of Systems 10-point ROS is otherwise unremarkable Physical Examination - Vital Signs Temperature: 96.7 F Blood Pressure: 155/78 Pulse: 62 Respirations: 18 Pulse Ox (%): 96 - Physical Exam General: Alert, In no apparent distress HEENT: Atraumatic, PERRLA, EOMI Neck: Supple, JVD not distended Respiratory: Clear to auscultation bilaterally, Normal air movement Cardiovascular: Regular rate/rhythm, Normal S1 S2 Gastrointestinal: Normal bowel sounds, No tenderness Musculoskeletal: No tenderness Integumentary: No rashes Neurological: Normal speech, Normal tone, Normal affect Lymphatics: No axilla or inguinal lymphadenopathy Assessment & Plan - Problems (Diagnosis) (1) Infected hand Onset Date: 12/14/17 Current Visit: Yes Status: Acute Plan: Patient has been moving his thumb more. Was kept to see if it looks good to Dr. Rudd. As he is the specialist who makes a good point(we don't want to loose a thumb) Will defer to his judgement. Possible discharge if ok with Dr. Rudd (2) CLL (chronic lymphocytic leukemia) Onset Date: 12/14/17 Current Visit: Yes Status: Chronic Plan: Will monitor his cbc. He has brought his ibrutinib. Which he can continue taking (3) Asthma, mild intermittent, well-controlled Onset Date: 12/14/17 Current Visit: Yes Status: Acute Plan: Continue singular. Can use his own inhalers Discharge Plan: Home Plan to discharge in: 24 Hours - Code Status/Comfort Care Code Status Assessed: No Code Status: Full Code Physician Review: Patient Assessed, Agree with Above Assessment and Plan Critical Care: No Time Spent Managing Pts Care (In Minutes): 20
--- NOTE | 2017-12-22 14:31 | PN ---
The patient's dressing was changed. He has increased range of motion. Decreased swelling. The woun d has approximated better. We will let him go home, today, . He will come back Tuesday to office in [place]. He will just take Tylenol for pain. Continue Silvadene cream dressing bubba dillon b.i.rigo LOCKHART Voice ID: [id number] Report ID: [id number]
== END 2017-12-22 12:05 | disposition home or self-care (01) | DRG 580 ==
LOC: ER 16:32 → ERHOLD 17:19 → OBSVTOIN 17:19 → 2ND 19:12
PROVIDERS: ADMIT Internal Medicine; ATTEND Internal Medicine
PROC: 0HTQXZZ Resection of Finger Nail, External Approach (ICD-10-PCS; 2017-12-14)
PROC: 0JDJ0ZZ Extraction of Right Hand Subcutaneous Tissue and Fascia, Open Approach (ICD-10-PCS; principal; 2017-12-14 14:30)
PROC: 0JQK0ZZ Repair Left Hand Subcutaneous Tissue and Fascia, Open Approach (ICD-10-PCS; 2017-12-20)
DX: L08.89 Other specified local infections of the skin and subcutaneous tissue (principal); C91.10 Chronic lymphocytic leukemia of B-cell type not having achieved remission; B95.62 Methicillin resistant Staphylococcus aureus infection as the cause of diseases classified elsewhere; J45.909 Unspecified asthma, uncomplicated
CPT/HCPCS: 36415; 71045; 71046; 80048; 80053; 80202; 85025; 85610; 85730; 87070; 87075; 87077; 87186; 87205; 88304; 88305; 93005; 96365; 96366; 96367; 99285; J0295; J1650; J2175; J2250; J2405; J3010; J3370; J7030

== ENCOUNTER 2018-11-19 14:15 | Emergency (ER) | payer BC ==
--- OUTSIDE RECORDS SUMMARY | 2018-11-19 14:17 | XMS REPORT ---
:1960 Author Organization [employer] Care Team Providers Name Role Phone Jordan Juarez Provider Role Unavailable Allergies No Known Allergies Problems Problem Type Condition Code Onset Dates Condition Status Problem Other chronic pain G89.29 Active Problem Allergic rhinitis, seasonal J30.2 Active Problem Essential (primary) hypertension I10 Active Problem Paresthesia of skin R20.2 Active Problem Scratched by cat, initial W55.03XA Active encounter Problem Asthmatic bronchitis J45.909 Active Problem CLL (chronic lymphocytic leukemia) C91.90 Active Medications No Known Medications Results No Known Results Summary Purpose [employer] Submission
--- OUTSIDE RECORDS SUMMARY | 2018-11-19 14:17 | XMS REPORT ---
:1960 Author Organization [employer] Care Team Providers Name Role Phone Kosta Kamara Provider Role Unavailable Allergies, Adverse Reactions, Alerts Substance Reaction Event Type Ondansetron Info Not Available Drug Allergy Lisinopril headache, numbness/tingling to R arm Drug Allergy Hydrocodone-Acetaminophen Info Not Available Drug Allergy Problems Problem Type Condition Code Onset Dates Condition Status Assessment Tenosynovitis of left ankle M65.9 Active Assessment Pain in left ankle and joints of M25.572 Active left foot Assessment Sprain of other ligament of left S93.492S Active ankle, sequela Problem Other chronic pain G89.29 Active Problem Allergic rhinitis, seasonal J30.2 Active Problem Essential (primary) hypertension I10 Active Problem Paresthesia of skin R20.2 Active Problem Scratched by cat, initial W55.03XA Active encounter Problem Asthmatic bronchitis J45.909 Active Problem CLL (chronic lymphocytic leukemia) C91.90 Active Medications Medication Code Code Instructions Start End Status Dosage System Date Date Centrum Adults [facility] 98252946971 - Orally Active not defined Allopurinol ND 55990900041 100 MG Orally Active 1 tablet Once a day Fluticasone ND 58373050202 50 MCG/ACT Active 1 spray in Propionate Nasally Once a each day nostril ProAir [facility] 35859662991 108 (90 Base) Active 2 puffs as RespiClick MCG/ACT needed Inhalation every 6 hrs Ibrutinib [facility] [address]-77 420 MG Orally December Active 1 tablet Once a day 2017 Vitamin B-12 ND 88699179154 5000 MCG Active not Sublingual defined Results No Known Results Summary Purpose eClinicalWorks Submission
--- OUTSIDE RECORDS SUMMARY | 2018-11-19 14:17 | XMS REPORT ---
[...] Start End Status Dosage System Date Date Ibrutinib [facility] [address]-56 420 MG Orally December Active 1 tablet Once a day 2017 Fluticasone [facility] 32507826093 50 MCG/ACT Active 1 spray in Propionate Nasally Once a each day nostril ProAir [facility] 48232571519 108 (90 Base) Active 2 puffs as RespiClick MCG/ACT needed Inhalation every 6 hrs Vitamin B-12 [facility] 90951772094 5000 MCG Active not Sublingual defined Centrum Adults ND 49551033354 - Orally Active not defined Allopurinol ND 63187544564 100 MG Orally Active 1 tablet Once a day Results Name Result Date Reference Range Unit Abnormality Flag Physical Therapy Summary Purpose eClinicalWorks Submission
--- OUTSIDE RECORDS SUMMARY | 2018-11-19 14:17 | XMS REPORT ---
:1960 Author Organization [employer] Care Team Providers Name Role Phone Kosta Kamara Provider Role Unavailable Allergies No Known Allergies [...]
--- NOTE | 2018-11-19 16:23 | RAD REPORT ---
EXAM DESCRIPTION: RAD - Elbow Left 3 View - 11/19/2018 3:56 pm CLINICAL HISTORY: Left elbow pain status post trauma FINDINGS: No fracture or dislocation is seen.
--- NOTE | 2018-11-19 16:30 | EDPHYS ---
Physician Documentation [facility] Name: Wiley Anne Age: 57 yrs Sex: Male : 1960 Arrival Date: 11/19/2018 Time: 14:20 Bed 30 Private MD: Jordan Juarez ED Physician Kel Louis HPI: 11/19 16:07 This 57 yrs old Male presents to ER via Ambulatory with complaints of Elbow rn Injury. 16:07 The patient or guardian complains of injury, pain. The complaints affect the left rn elbow. Onset: The symptoms/episode began/occurred yesterday. Modifying factors: The symptoms are alleviated by remaining still, the symptoms are aggravated by lifting weight, bending arm. Severity of symptoms: At their worst the symptoms were moderate, in the emergency department the symptoms are unchanged. The patient has not experienced similar symptoms in the past. Reports lifting heavy trailer, heard a pop, feel pain around elbow, doesn't feel broken, feels weak to lift things. . Historical: - Allergies: 14:26 Zofran; sg 14:26 [place]; sg - PMHx: 14:26 None; sg - Immunization history:: Adult Immunizations up to date. - Social history:: Smoking status: Patient/guardian denies using tobacco. - Ebola Screening: : Patient negative for fever greater than or equal to 101.5 degrees Fahrenheit, and additional compatible Ebola Virus Disease symptoms Patient denies exposure to infectious person Patient denies travel to an Ebola-affected area in the 21 days before illness onset No symptoms or risks identified at this time. - Family history:: not pertinent. - Hospitalizations: : No recent hospitalization is reported. ROS: 16:07 Constitutional: Negative for fever, chills, and weight loss, MS/Extremity: + left elbow rn pain Exam: 16:07 Constitutional: This is a well developed, well nourished patient who is awake, alert, rn and in no acute distress. MS/ Extremity: Pulses equal, no cyanosis. Neurovascular intact. Full, normal range of motion. Equal circumference. + tenderness just distal to left elbow, no bony tenderness, pain with resistance against elbow flexion and some rotation of elbow. Vital Signs: 14:31 Pulse 85; Resp 17; Temp 98.5; Pulse Ox 100% on R/A; Weight 61.23 kg; Height 5 ft. 2 in. sg (157.48 cm); Pain 6/10; 14:31 BP 142 / 88; sg 15:16 BP 151 / 82; Pulse 58; Pulse Ox 100% ; Pain 7/10; jp3 14:31 Body Mass Index 24.69 (61.23 kg, 157.48 cm) MDM: 14:56 Patient medically screened. rn 16:28 Differential diagnosis: dislocation, closed fracture, contusion, tendonitis, tendon rn injury. Data reviewed: vital signs, nurses notes, radiologic studies, plain films, and as a result, I will discharge patient. Counseling: I had a detailed discussion with the patient and/or guardian regarding: the historical points, exam findings, and any diagnostic results supporting the discharge/admit diagnosis, radiology results, the need for outpatient follow up, to return to the emergency department if symptoms worsen or persist or if there are any questions or concerns that arise at home. Special discussion: I discussed with the patient/guardian in detail that at this point there is no indication for admission to the hospital. It is understood, however, that if the symptoms persist or worsen the patient needs to return immediately for re-evaluation. 11/19 14:43 Order name: XRAY Elbow LEFT 3 view; Complete Time: 16:28 Administered Medications: No medications were administered Disposition: 11/19/18 16:29 Discharged to Home. Impression: Other specified disorders of tendon, left elbow, Other sprain of left elbow. - Condition is Stable. - Discharge Instructions: Muscle Strain. - Medication Reconciliation Form, Thank You Letter, Antibiotic Education, Prescription Opioid Use form. - Follow up: Private Physician; When: As needed; Reason: Recheck today's complaints, Re-evaluation by your physician. - Problem is new. - Symptoms have improved. Signatures: Dispatcher [employer] EDNicholas Aquino RN RN Kel Louis MD MD rn Attema, Lee, RN RN la1 Corrections: (The following items were deleted from the chart) 16:56 16:29 11/19/2018 16:29 Discharged to Home. Impression: Other specified disorders of la1 tendon, left elbow; Other sprain of left elbow. Condition is Stable. Forms are Medication Reconciliation Form, Thank You Letter, Antibiotic Education, Prescription Opioid Use. Follow up: Private Physician; When: As needed; Reason: Recheck today's complaints, Re-evaluation by your physician. Problem is new. Symptoms have improved. rn
--- NOTE | 2018-11-19 16:30 | ER ---
Nurse's Notes [facility] Name: Wiley Anne Age: 57 yrs Sex: Male : 1960 Arrival Date: 11/19/2018 Time: 14:20 Bed 30 Private MD: Jordan Juarez Diagnosis: Other specified disorders of tendon, left elbow;Other sprain of left elbow Presentation: 11/19 14:32 Presenting complaint: Patient states: Was working at home yesterday, attempted to move sg a trailer with a piece of heavy machinary on it by hand, when he felt a pop in his left elbow, reports it still moves normally like it should just painful and bruising, but unsure if the bruising is due to leukemia he has a hx of or its from a fracture. Transition of care: patient was not received from another setting of care. Onset of symptoms was November 19, 2018. Risk Assessment: Do you want to hurt yourself or someone else? Patient reports no desire to harm self or others. Initial Sepsis Screen: Does the patient meet any 2 criteria? No. Patient's initial sepsis screen is negative. Does the patient have a suspected source of infection? No. Patient's initial sepsis screen is negative. Care prior to arrival: None. 14:32 Method Of Arrival: Ambulatory 14:32 Acuity: JASMIN 4 sg Historical: - Allergies: 14:26 Zofran; sg 14:26 [place]; sg - PMHx: 14:26 None; sg - Immunization history:: Adult Immunizations up to date. - Social history:: Smoking status: Patient/guardian denies using tobacco. - Ebola Screening: : Patient negative for fever greater than or equal to 101.5 degrees Fahrenheit, and additional compatible Ebola Virus Disease symptoms Patient denies exposure to infectious person Patient denies travel to an Ebola-affected area in the 21 days before illness onset No symptoms or risks identified at this time. - Family history:: not pertinent. - Hospitalizations: : No recent hospitalization is reported. Screenin:18 Abuse screen: Denies threats or abuse. Nutritional screening: No deficits noted. la1 Tuberculosis screening: No symptoms or risk factors identified. Fall Risk None identified. Assessment: 16:17 General: Appears in no apparent distress. Behavior is calm, cooperative. Pain: la1 Complains of pain in left elbow. Neuro: Level of Consciousness is awake, alert, obeys commands. Cardiovascular: Patient's skin is warm and dry. Respiratory: Airway is patent Respiratory effort is even, unlabored. GI: No signs and/or symptoms were reported involving the gastrointestinal system. : No signs and/or symptoms were reported regarding the genitourinary system. Musculoskeletal: Circulation, motion, and sensation intact. Range of motion: limited in left elbow. 16:34 Reassessment: Patient appears in no apparent distress at this time. No changes from la1 previously documented assessment. Patient and/or family updated on plan of care and expected duration. Pain level reassessed. Patient is alert, oriented x 3, equal unlabored respirations, skin warm/dry/pink. Vital Signs: 14:31 Pulse 85; Resp 17; Temp 98.5; Pulse Ox 100% on R/A; Weight 61.23 kg; Height 5 ft. 2 in. sg (157.48 cm); Pain 6/10; 14:31 BP 142 / 88; sg 15:16 BP 151 / 82; Pulse 58; Pulse Ox 100% ; Pain 7/10; jp3 14:31 Body Mass Index 24.69 (61.23 kg, 157.48 cm) sg ED Course: 14:20 Patient arrived in ED. as 14:21 Jordan Juarez MD is Private Physician. as 14:25 Arm band placed on. sg 14:33 Triage completed. sg 14:56 Kel Louis MD is Attending Physician. rn 15:32 Mick Ogden RN is Primary Nurse. la1 15:56 XRAY Elbow LEFT 3 view In Process Unspecified. EDMS 16:18 Call light in reach. Side rails up X 1. la1 16:35 No provider procedures requiring assistance completed. IV discontinued, intact, la1 bleeding controlled, No redness/swelling at site. Pressure dressing applied. Administered Medications: No medications were administered Outcome: 16:29 Discharge ordered by . rn 16:35 Discharged to home ambulatory. la1 16:35 Condition: stable 16:35 Discharge instructions given to patient, Instructed on discharge instructions, follow up and referral plans. medication usage, Demonstrated understanding of instructions, follow-up care. 16:56 Patient left the ED. la1 Signatures: Dispatcher [employer] EDMS Nicholas Garcia RN Arlene Sue Roman, MD MD rn Melvi, MOSES Barton RN la1 Rosales Graves jp3
[2018-11-19 17:00] VITALS: TEMP 98.5; O2SAT 100
[2018-11-19 17:02] VITALS: BP 151/82
== END 2018-11-19 16:56 | disposition home or self-care (01) ==
LOC: ER 14:15
DX: S53.492A Other sprain of left elbow, initial encounter (principal); M67.824 Other specified disorders of tendon, left elbow; X50.0XXA Overexertion from strenuous movement or load, initial encounter; Y93.89 Activity, other specified; Y92.9 Unspecified place or not applicable; Z88.5 Allergy status to narcotic agent; Z88.8 Allergy status to other drugs, medicaments and biological substances
CPT/HCPCS: 99283

== ENCOUNTER 2018-12-30 15:30 | Emergency (ER) | payer BC ==
--- OUTSIDE RECORDS SUMMARY | 2018-12-30 15:32 | XMS REPORT ---
[...] End Status Dosage System Date Date Ibrutinib [facility] [address]-55 420 MG Orally December Active 1 tablet Once a day 2017 Fluticasone [facility] 51847232642 50 MCG/ACT Active 1 spray in Propionate Nasally Once a each day nostril ProAir [facility] 80093581337 108 (90 Base) Active 2 puffs as RespiClick MCG/ACT needed Inhalation every 6 hrs Vitamin B-12 [facility] 47663935708 5000 MCG Active not Sublingual defined Centrum Adults ND 50922492468 - Orally Active not defined Allopurinol ND 33003571765 100 MG Orally Active 1 tablet Once a day Results Name Result Date Reference Range Unit Abnormality Flag Physical Therapy Summary Purpose eClinicalWorks Submission
--- OUTSIDE RECORDS SUMMARY | 2018-12-30 15:32 | XMS REPORT ---
[...] Status Dosage System Date Date Centrum Adults [facility] 92197390613 - Orally Active not defined Allopurinol ND 99466242880 100 MG Orally Active 1 tablet Once a day Fluticasone ND 91352395873 50 MCG/ACT Active 1 spray in Propionate Nasally Once a each day nostril ProAir [facility] 21645525201 108 (90 Base) Active 2 puffs as RespiClick MCG/ACT needed Inhalation every 6 hrs Ibrutinib [facility] [address]-33 420 MG Orally December Active 1 tablet Once a day 2017 Vitamin B-12 ND 37303493506 5000 MCG Active not Sublingual defined Results No Known Results Summary Purpose eClinicalWorks Submission
[2018-12-30] MEDS ORDERED: LIDOCAINE 1% MPF 5 ML VIAL ONE (15:58)
--- NOTE | 2018-12-30 16:32 | ER ---
Nurse's Notes [facility] Name: Wiley Anne Age: 58 yrs Sex: Male : 1960 Arrival Date: 12/30/2018 Time: 15:32 Bed 26 Private MD: Diagnosis: Paronychia - left 4th finger Presentation: 12/30 15:34 Presenting complaint: Patient states: left fourth finger infection after chewing on la1 nail. Transition of care: patient was not received from another setting of care. Onset of symptoms was December 30, 2018. Risk Assessment: Do you want to hurt yourself or someone else? Patient reports no desire to harm self or others. Initial Sepsis Screen: Does the patient meet any 2 criteria? No. Patient's initial sepsis screen is negative. Does the patient have a suspected source of infection? No. Patient's initial sepsis screen is negative. Care prior to arrival: None. 15:34 Method Of Arrival: Ambulatory la1 15:34 Acuity: JASMIN 4 la1 Historical: - Allergies: 15:35 [place]; la1 15:35 Zofran; la1 - PMHx: 15:35 CLL; LYMPHOMA; la1 - Immunization history:: Adult Immunizations up to date. - Social history:: Smoking status: Patient/guardian denies using tobacco. - Ebola Screening: : No symptoms or risks identified at this time. Screenin:44 Abuse screen: Denies threats or abuse. Denies injuries from another. Nutritional aj screening: No deficits noted. Tuberculosis screening: No symptoms or risk factors identified. Fall Risk None identified. Assessment: 15:42 General: Appears in no apparent distress. comfortable, Behavior is calm, cooperative, aj appropriate for age. Pain: Complains of pain in dorsal aspect of distal phalanx of left ring finger. Neuro: Level of Consciousness is awake, alert, obeys commands, Oriented to person, place, time, situation, Appropriate for age. Respiratory: Airway is patent Respiratory effort is even, unlabored, Respiratory pattern is regular, symmetrical. Derm: Skin is intact, is healthy with good turgor, Skin is pink, warm \T\ dry. normal, Abscess located on dorsal aspect of distal phalanx of left ring finger is pea sized. 16:59 Reassessment: Patient appears in no apparent distress at this time. No changes from aj previously documented assessment. Patient and/or family updated on plan of care and expected duration. Pain level reassessed. Patient states feeling better. Patient states symptoms have improved. Vital Signs: 15:35 BP 156 / 87; Pulse 61; Resp 16; Temp 98.6; Pulse Ox 98% on R/A; Weight 58.97 kg; Height la1 5 ft. 2 in. (157.48 cm); Pain 6/10; 15:35 Body Mass Index 23.78 (58.97 kg, 157.48 cm) la1 ED Course: 15:32 Patient arrived in ED. as 15:34 Arm band placed on left wrist. la1 15:35 Triage completed. la1 15:36 Anjelica Andrade, RN is Primary Nurse. aj 15:38 Ward Samaniego NP is PHCP. pm1 15:38 Kel Louis MD is Attending Physician. pm1 16:28 Assist provider with I \T\ D: of an abscess on right 4 th digit Set up I\T\D tray. aj Performed by Ward Samaniego MOLDING MANAGER Culture sent to lab. Patient tolerated well. 16:31 Ike Rudd MD is Referral Physician. pm1 17:00 Patient has correct armband on for positive identification. aj 17:00 Patient did not have IV access during this emergency room visit. aj Administered Medications: 16:28 Drug: Lidocaine (1 %) 5 ml Volume: 5 ml; Route: Infiltration; aj Outcome: 16:32 Discharge ordered by . pm1 17:00 Discharged to home ambulatory, with friend. aj 17:00 Condition: good 17:00 Discharge instructions given to patient, family, Instructed on discharge instructions, follow up and referral plans. medication usage, Demonstrated understanding of instructions, follow-up care, medications, wound care, Prescriptions given X 1. 17:01 Patient left the ED. aj Addendum: 01/04/2019 08:02 Addendum: Culture Results: Positive wound culture. Bacteria is resistant to, has i w intermediate sensitivity, or is not tested against prescribed antibiotics. Report given to FLY for further evaluation and then to airplane cover maker for follow up with patient. Phone call Attempt #1 pt is feeling better, wound is healing well. Signatures: Anjelica Andrade, Arlene Stacy RN, Irene, RN RN iw Attema, Lee, RN RN la Ward Samaniego, MOLDING MANAGER MOLDING MANAGER pm1
--- NOTE | 2018-12-30 16:32 | EDPHYS ---
Physician Documentation [facility] Name: Wiley Anne Age: 58 yrs Sex: Male : 1960 Arrival Date: 12/30/2018 Time: 15:32 Bed 26 Private MD: ED Physician Kel Louis HPI: 12/30 15:47 This 58 yrs old Male presents to ER via Ambulatory with complaints of Finger pm1 Problem. 15:47 The patient or guardian reports pain, swelling. The complaints affect the dorsal aspect pm1 of distal phalanx of left ring finger. Context: The problem was sustained at home, resulted from Nail biting. Onset: The symptoms/episode began/occurred 2 day(s) ago. Modifying factors: The symptoms are alleviated by nothing. Associated signs and symptoms: Pertinent negatives: cyanosis distally, decreased sensation distally, numbness distally, tingling distally. Severity of symptoms: in the emergency department the symptoms are actually worse. The patient has experienced similar episodes in the past, several times, as a result of his nail biting. The patient has not recently seen a physician. Historical: - Allergies: 15:35 [place]; la1 15:35 Zofran; la1 - PMHx: 15:35 CLL; LYMPHOMA; la1 - Immunization history:: Adult Immunizations up to date. - Social history:: Smoking status: Patient/guardian denies using tobacco. - Ebola Screening: : No symptoms or risks identified at this time. ROS: 15:47 Constitutional: Negative for fever, chills, and weight loss, Eyes: Negative for injury, pm1 pain, redness, and discharge, ENT: Negative for injury, pain, and discharge, Neck: Negative for injury, pain, and swelling, Cardiovascular: Negative for chest pain, palpitations, and edema, Respiratory: Negative for shortness of breath, cough, wheezing, and pleuritic chest pain, Abdomen/GI: Negative for abdominal pain, nausea, vomiting, diarrhea, and constipation, Back: Negative for injury and pain, : Negative for injury, bleeding, discharge, and swelling. 15:47 Skin: Negative for injury, rash, and discoloration, Neuro: Negative for headache, weakness, numbness, tingling, and seizure. 15:47 MS/extremity: Positive for pain, swelling, tenderness, of the dorsal aspect of distal phalanx of left ring finger, medial aspect of fingernail, Negative for decreased range of motion, deformity. Exam: 15:47 Constitutional: This is a well developed, well nourished patient who is awake, alert, pm1 and in no acute distress. Head/Face: Normocephalic, atraumatic. Chest/axilla: Normal chest wall appearance and motion. Nontender with no deformity. No lesions are appreciated. Cardiovascular: Regular rate and rhythm with a normal S1 and S2. No gallops, murmurs, or rubs. Normal PMI, no JVD. No pulse deficits. Respiratory: Lungs have equal breath sounds bilaterally, clear to auscultation and percussion. No rales, rhonchi or wheezes noted. No increased work of breathing, no retractions or nasal flaring. Abdomen/GI: Soft, non-tender, with normal bowel sounds. No distension or tympany. No guarding or rebound. No evidence of tenderness throughout. Back: No spinal tenderness. No costovertebral tenderness. Full range of motion. 15:47 MS/ Extremity: Pulses equal, no cyanosis. Neurovascular intact. Full, normal range of motion. 15:47 Skin: Appearance: normal except for affected area, abscess, that is small, of the dorsal aspect of distal phalanx of left ring finger, medial aspect of finger nail, with fluctuance, that is mild, no surrounding cellulitis, induration, pointing, drainage, cellulitis, is not appreciated. 15:47 Neuro: Orientation: is normal, Motor: is normal, moves all fours, Sensation: is normal, no obvious gross deficits. Vital Signs: 15:35 BP 156 / 87; Pulse 61; Resp 16; Temp 98.6; Pulse Ox 98% on R/A; Weight 58.97 kg; Height la1 5 ft. 2 in. (157.48 cm); Pain 6/10; 15:35 Body Mass Index 23.78 (58.97 kg, 157.48 cm) la1 Procedures: 16:30 I \T\ D: Incision and drainage was performed for an abscess of the left dorsal aspect of pm1 distal phalanx of left ring finger Prepped with Betadine, Anesthetized with 2 ml's 1% Lidocaine. Incised with #11 blade. Drained small amount serosanguinous fluid. Dressing: sterile 4x4 gauze, the patient tolerated the procedure well. MDM: 15:39 Patient medically screened. pm1 16:30 Data reviewed: vital signs. Data interpreted: Pulse oximetry: on room air is 98 %. pm1 Interpretation: normal. Counseling: I had a detailed discussion with the patient and/or guardian regarding: the historical points, exam findings, and any diagnostic results supporting the discharge/admit diagnosis, the need for outpatient follow up, for definitive care, a hand specialist, to return to the emergency department if symptoms worsen or persist or if there are any questions or concerns that arise at home. 12/30 16:29 Order name: Wound Culture pm1 12/30 15:43 Order name: Incision \T\ Drainage Setup; Complete Time: 15:48 pm1 Administered Medications: 16:28 Drug: Lidocaine (1 %) 5 ml Volume: 5 ml; Route: Infiltration; aj Disposition: 17:22 Co-signature as Attending Physician, Kel Louis MD. rn Disposition: 12/30/18 16:32 Discharged to Home. Impression: Paronychia - left 4th finger. - Condition is Stable. - Discharge Instructions: Incision and Drainage, Paronychia. - Prescriptions for Augmentin 875- 125 mg Oral Tablet - take 1 tablet by ORAL route every 12 hours for 10 days; 20 tablet. - Medication Reconciliation Form, Thank You Letter, Antibiotic Education, Prescription Opioid Use form. - Follow up: Emergency Department; When: As needed; Reason: Worsening of condition. Follow up: Ike Rudd; When: 2 - 3 days; Reason: Recheck today's complaints, Continuance of care, Re-evaluation by your physician. - Problem is new. - Symptoms have improved. Signatures: Dispatcher [employer] Anjelica Toscano RN RN aj Nieto, Roman, MD MD rn Attema, Lee, RN RN la1 Ward Samaniego, BERT TELEVISION ANTENNA INSTALLER pm1 Corrections: (The following items were deleted from the chart) 17:01 16:32 12/30/2018 16:32 Discharged to Home. Impression: Paronychia - left 4th finger. aj Condition is Stable. Discharge Instructions: Paronychia, Incision and Drainage. Prescriptions for Augmentin 875-125 mg Oral Tablet - take 1 tablet by ORAL route every 12 hours for 10 days; 20 tablet. and Forms are Medication Reconciliation Form, Thank You Letter, Antibiotic Education, Prescription Opioid Use. Follow up: Emergency Department; When: As needed; Reason: Worsening of condition. Follow up: Ike Rudd; When: 2 - 3 days; Reason: Recheck today's complaints, Continuance of care, Re-evaluation by your physician. Problem is new. Symptoms have improved. pm1
[2018-12-30 17:05] VITALS: BP 156/87; TEMP 98.6; O2SAT 98
== END 2018-12-30 17:01 | disposition home or self-care (01) ==
LOC: ER 15:30
PROC: 0J9K0ZZ Drainage of Left Hand Subcutaneous Tissue and Fascia, Open Approach (ICD-10-PCS; principal; 2018-12-30)
DX: L03.012 Cellulitis of left finger (principal); C91.10 Chronic lymphocytic leukemia of B-cell type not having achieved remission; C85.90 Non-Hodgkin lymphoma, unspecified, unspecified site; Z88.5 Allergy status to narcotic agent; Z88.8 Allergy status to other drugs, medicaments and biological substances
CPT/HCPCS: 87070; 87077; 87186; 87205; 99284

== ENCOUNTER 2019-04-25 08:57 | Emergency (ER) | payer BC ==
--- OUTSIDE RECORDS SUMMARY | 2019-04-25 08:59 | XMS REPORT ---
[...] Status Dosage System Date Date Centrum Adults [facility] 85300012833 - Orally Active not defined Allopurinol ND 92191631247 100 MG Orally Active 1 tablet Once a day Fluticasone ND 76523340288 50 MCG/ACT Active 1 spray in Propionate Nasally Once a each day nostril ProAir [facility] 95035358153 108 (90 Base) Active 2 puffs as RespiClick MCG/ACT needed Inhalation every [address] [facility] [address]-45 420 MG Orally December Active 1 tablet Once a day 2017 Vitamin B-12 ND 05764689042 5000 MCG Active not Sublingual defined Results No Known Results Summary Purpose eClinicalWorks Submission
--- OUTSIDE RECORDS SUMMARY | 2019-04-25 08:59 | XMS REPORT ---
[...] End Status Dosage System Date Date Ibrutinib [facility] [address]-33 420 MG Orally December Active 1 tablet Once a day 2017 Fluticasone [facility] 78423579552 50 MCG/ACT Active 1 spray in Propionate Nasally Once a each day nostril ProAir [facility] 00555955294 108 (90 Base) Active 2 puffs as RespiClick MCG/ACT needed Inhalation every 6 hrs Vitamin B-12 [facility] 11626836098 5000 MCG Active not Sublingual defined Centrum Adults ND 07181243449 - Orally Active not defined Allopurinol ND 19575526783 100 MG Orally Active 1 tablet Once a day Results Name Result Date Reference Range Unit Abnormality Flag Physical Therapy Summary Purpose eClinicalWorks Submission
[2019-04-25] MEDS ORDERED: LIDOCAINE 1% MPF 5 ML VIAL ONE (09:25)
--- NOTE | 2019-04-25 10:49 | ER ---
Nurse's Notes [facility] Name: Wiley Anne Age: 58 yrs Sex: Male : 1960 Arrival Date: 04/25/2019 Time: 08:59 Bed 8 Private MD: Diagnosis: Paronychia of right 2nd digit Presentation: 04/25 09:23 Presenting complaint: Patient states: infection to tip of right index finger, previous iw infection to same finger X 3, was seen at urgent care on Tuesday and put on clindamycin. Transition of care: patient was not received from another setting of care. Onset of symptoms was April 25, 2019. Risk Assessment: Do you want to hurt yourself or someone else? Patient reports no desire to harm self or others. Initial Sepsis Screen: Does the patient meet any 2 criteria? No. Patient's initial sepsis screen is negative. Does the patient have a suspected source of infection? No. Patient's initial sepsis screen is negative. Care prior to arrival: None. 09:23 Method Of Arrival: Ambulatory iw 09:23 Acuity: JASMIN 4 iw Historical: - Allergies: 09:25 [place]; iw 09:25 Zofran; iw - Home Meds: 09:25 Clindamycin Oral [Active]; iw - PMHx: 09:25 CLL; LYMPHOMA; iw - Immunization history:: Adult Immunizations unknown. - Social history:: Smoking status: unknown. - Family history:: not pertinent. - Ebola Screening: : Patient negative for fever greater than or equal to 101.5 degrees Fahrenheit, and additional compatible Ebola Virus Disease symptoms Patient denies exposure to infectious person Patient denies travel to an Ebola-affected area in the 21 days before illness onset No symptoms or risks identified at this time. - Hospitalizations: : No recent hospitalization is reported. Screenin: Abuse screen: Denies threats or abuse. Denies injuries from another. Nutritional sg screening: No deficits noted. Tuberculosis screening: No symptoms or risk factors identified. Never had TB. Fall Risk None identified. Assessment: 09:22 General: Appears in no apparent distress. well groomed, well developed, well nourished, sg Behavior is calm, cooperative, appropriate for age. Pain: Complains of pain in DIP of right index finger Quality of pain is described as tender, throbbing, Pain began 2-3 days ago. Neuro: Level of Consciousness is awake, alert, obeys commands, Oriented to person, place, time, situation, Digital Designer are equal bilaterally Moves all extremities. Full function. Cardiovascular: Capillary refill is brisk in bilateral fingers Patient's skin is warm and dry. Respiratory: Airway is patent Respiratory effort is even, unlabored, Respiratory pattern is regular, symmetrical. GI: Abdomen is round non-distended. : No signs and/or symptoms were reported regarding the genitourinary system. EENT: No signs and/or symptoms were reported regarding the EENT system. Derm: Skin is pink, warm \T\ dry. Musculoskeletal: Circulation, motion, and sensation intact. Range of motion: intact in all extremities. 09:48 Reassessment: at bedside for I/D at this time. sg Vital Signs: 09:25 BP 176 / 91; Pulse 65; Resp 16; Temp 97.9(TE); Pulse Ox 97% on R/A; iw ED Course: 08:59 Patient arrived in ED. as 09:17 Kel Louis MD is Attending Physician. rn 09:24 Triage completed. iw 09:24 Nicholas Garcia, RN is Primary Nurse. sg 09:26 Arm band placed on. iw 09:30 Patient has correct armband on for positive identification. Bed in low position. Call sg light in reach. Head of bed elevated. Elevated right hand. 09:33 Wound care: to abscess located on DIP of right index finger was soaked in Betadine sg solution. 10:58 Assist provider with I \T\ D: of an abscess on right index finger Set up I\T\D tray. iw Performed by Kel Louis MD Dressing with 4X4s, Patient tolerated well. Patient did not have IV access during this emergency room visit. Administered Medications: 09:32 Drug: Lidocaine (1 %) 1 vials {Note: medication administered by for ID.} sg Volume: 5 ml; Route: Infiltration; Outcome: 10:48 Discharge ordered by . rn 10:59 Discharged to home ambulatory, with family. iw 10:59 Condition: good 10:59 Discharge instructions given to family, Instructed on discharge instructions, follow up and referral plans. medication usage, Demonstrated understanding of instructions, follow-up care, medications, Prescriptions given X 1. 11:00 Patient left the ED. iw Signatures: Nicholas Garcia, RN RN sg Arlene John as Geeta Zuniga RN RN iw Kel Louis MD MD clinical quality rn: (The following items were deleted from the chart) 09:25 09:23 Presenting complaint: Patient states: infection to tip of right index finger, iw previous infection to same finger X 3 iw
--- NOTE | 2019-04-25 10:49 | EDPHYS ---
Physician Documentation [facility] Name: Wiley Anne Age: 58 yrs Sex: Male : 1960 Arrival Date: 04/25/2019 Time: 08:59 Bed 8 Private MD: ED Physician Kel Louis HPI: 04/25 09:24 This 58 yrs old Male presents to ER via Unassigned with complaints of Finger rn Infection. 09:24 The patient or guardian reports injury, pain. The complaints affect the DIP of right rn index finger. Onset: The symptoms/episode began/occurred 1 week(s) ago. Modifying factors: The symptoms are alleviated by nothing, the symptoms are aggravated by dependent position. Severity of symptoms: At their worst the symptoms were mild, in the emergency department the symptoms are unchanged. The patient has experienced similar episodes in the past. Reports recurrent finger infections, continues to bite nails, accidentally bit skin with it, went to urgent care and got abx, not better, thinks needs to be drained.. Historical: - Allergies: 09:25 [place]; iw 09:25 Zofran; iw - Home Meds: 09:25 Clindamycin Oral [Active]; iw - PMHx: 09:25 CLL; LYMPHOMA; iw - Immunization history:: Adult Immunizations unknown. - Social history:: Smoking status: unknown. - Family history:: not pertinent. - Ebola Screening: : Patient negative for fever greater than or equal to 101.5 degrees Fahrenheit, and additional compatible Ebola Virus Disease symptoms Patient denies exposure to infectious person Patient denies travel to an Ebola-affected area in the 21 days before illness onset No symptoms or risks identified at this time. - Hospitalizations: : No recent hospitalization is reported. ROS: 09:24 Constitutional: Negative for fever, chills, and weight loss, MS/Extremity: + right 2nd rn finger swelling and local injury Exam: 09:24 Constitutional: This is a well developed, well nourished patient who is awake, alert, rn and in no acute distress. MS/ Extremity: Pulses equal, no cyanosis. Neurovascular intact. Full, normal range of motion. + right distal 2nd digit with paronychia, no flexor sheath tenderness, no fusiform swelling, FROM of hand. Vital Signs: 09:25 BP 176 / 91; Pulse 65; Resp 16; Temp 97.9(TE); Pulse Ox 97% on R/A; iw Procedures: 10:16 I \T\ D: Incision and drainage was performed for an abscess of the right DIP of right rn index finger Prepped with Betadine, Anesthetized with 3 ml's 1% Lidocaine. Incised with 18g needle along entire length of nail. Drained small amount purulent fluid. serosanguinous fluid. Dressing: sterile 4x4 gauze, the patient tolerated the procedure well. MDM: 09:17 Patient medically screened. rn 10:46 Differential diagnosis: paronychia. Data reviewed: vital signs, nurses notes, and as a rn result, I will discharge patient. Counseling: I had a detailed discussion with the patient and/or guardian regarding: the historical points, exam findings, and any diagnostic results supporting the discharge/admit diagnosis, the need for outpatient follow up, to return to the emergency department if symptoms worsen or persist or if there are any questions or concerns that arise at home. Special discussion: I discussed with the patient/guardian in detail that at this point there is no indication for admission to the hospital. It is understood, however, that if the symptoms persist or worsen the patient needs to return immediately for re-evaluation. 04/25 09:23 Order name: Incision \T\ Drainage Setup; Complete Time: 09:32 rn Administered Medications: 09:32 Drug: Lidocaine (1 %) 1 vials {Note: medication administered by for ID.} sg Volume: 5 ml; Route: Infiltration; Disposition: 04/25/19 10:48 Discharged to Home. Impression: Paronychia of right 2nd digit. - Condition is Stable. - Discharge Instructions: Paronychia. - Prescriptions for Augmentin 875- 125 mg Oral Tablet - take 1 tablet by ORAL route every 12 hours for 10 days; 20 tablet. - Medication Reconciliation Form, Thank You Letter, Antibiotic Education, Prescription Opioid Use form. - Follow up: Private Physician; When: As needed; Reason: Recheck today's complaints, Re-evaluation by your physician. - Problem is new. - Symptoms have improved. Signatures: Nicholas Garcia RN RN sg Geeta Zuniga RN RN iw Kel Louis MD MD open hearth furnace operator helper: (The following items were deleted from the chart) 11:00 10:48 04/25/2019 10:48 Discharged to Home. Impression: Paronychia of right 2nd digit. iw Condition is Stable. Forms are Medication Reconciliation Form, Thank You Letter, Antibiotic Education, Prescription Opioid Use. Follow up: Private Physician; When: As needed; Reason: Recheck today's complaints, Re-evaluation by your physician. Problem is new. Symptoms have improved. rn
[2019-04-25 11:10] VITALS: BP 176/91; TEMP 97.9; O2SAT 97
== END 2019-04-25 11:00 | disposition home or self-care (01) ==
LOC: ER 08:57
DX: L03.011 Cellulitis of right finger (principal); Z88.6 Allergy status to analgesic agent
CPT/HCPCS: 99284

== ENCOUNTER 2020-12-30 21:31 | Emergency (ER) | payer BC, OTHER ==
--- OUTSIDE RECORDS SUMMARY | 2020-12-30 21:34 | XMS REPORT | Continuity of Care Document ---
:1960 Author Organization [facility] t Address [address] [place] [address] Care Team Providers Name Role Phone Unavailable Unavailable Unavailable Problems Condition Condition Condition Status Onset Resolution Last Treating Co mments Source Name Details Category Date Date Treatment Clinician Date Pneumonia Pneumonia Disease Active 2015-[address] [facility] of both of both 2-04 [facility] lower lower 00:00: Medical lobes due lobes due 00 Cent er to to infectious infectious organism organism Hyponatrem Hyponatrem Disease Active 2015-[address] ia ia 2-04 [facility] - 00:00: Medical 00 [place] 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 2-02 Brandi kes - ban ban 00:00: Medical 00 Center SIRS SIRS Disease Active 2015-[address] [facility] (systemic (systemic 2-02 [facility] - inflammato inflammato 00:00: Me dical ry ry 00 Center response response syndrome) syndrome) Lymphoma, Lymphoma, Disease Active 2015-[address] [facility] low grade low grade 2-02 [facility] - 00:00: Medical 00 Center Shortness Shortness Disease Active 2015-[address] [facility] of breath of breath 2-01 [facility] - 00:00: Medical 00 Center Weakness Weakness Disease Active 2015-09 [facility]- [facility] - [facility] Medical 00 Center Anemia Anemia Disease Active 2015-[address] [facility] 2- [facility] - 00:[facility]: Medical 00 Center Thrombocyt Thrombocyt Disease Active 2015-[address] openia openia 2- [facility] - 00:[facility]: Medical 00 Center Other Other Problem Active [facility] chronic chronic [facility] - pain pain [facility] Allergic Allergic Problem Active [facility] rhinitis, rhinitis, [facility] - seasonal seasonal [facility] Essential Essential Problem Active [facility] (primary) (primary) Luke [facility] - hypertensi hypertensi Me moria on on l [facility] Paresthesi Paresthesi Problem Active [facility] a of skin a of skin [facility] - [facility] Scratched Scratched Problem Active [facility] by cat, by cat, [facility] - initial initial Memoria encounter encounter l [facility] Asthmatic Asthmatic Problem Active [facility] bronchitis bronchitis Brandi kes - Memoria [facility] ent [facility] CLL CLL Problem Active [facility] (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[facility] - lymphocyti lymphocyti Me moria c c l leukemia) leukemia) Outp ati ent Clinics Tenosynovi Tenosynovi Diagnosis Active [facility] tis of tis of [facility] - left ankle left ankle Me moria l [facility] Pain in Pain in Diagnosis Active [facility] left ankle left ankle Brandi kes - and joints and joints Me moria of left of left l foot foot [facility] Sprain of Sprain of Diagnosis Active [facility] other other [facility] - ligament ligament Memori a of left of left l ankle, ankle, [facility] sequela sequela ent Clinics Allergies, Adverse Reactions, Alerts Allergy Allergy Status Severity Reaction(s) Onset Inactive Treating Comm ents Source Name Type Date Date Clinician Ondanset Adverse Active Info Not [facility] becca Reaction Available [facility] Lisinopr Adverse Active headache, [facility] il Reaction numbness/tin Brandi kes - gling to R Memori a arm l [facility] Hydrocod Adverse Active Info Not [facility] one-Acet Reaction Available Phan es - aminophe [facility]oria n l [facility] Social History Social Habit Start Date Stop Date Quantity Comments Source Sex Assigned At [facility] Tobacco use and 2016-08-05 2016-08-05 Never used [facility] - exposure 00:00:00 00:00:00 [facility] Alcohol intake 2016-08-05 2016-08-05 Current [facility] Phan es - 00:00:00 00:00:00 non-drinker of Medical Ce nter alcohol (finding) Smoking Status Start Date Stop Date Source Never smoker [facility] Medications Ordered Filled Start Stop Current Ordering Indication Dosage Frequency Signature Comments Components Source Medication Medication Date Date Medication? Clinician (SIG) Name Name Ibrutinib Ibrutinib 2018-0 Yes [place] [address] [facility] 4-11 Kamara [facility] - 00:00: Memoria 00 l [facility] ent Clinics Fluticasone Fluticasone Yes [place] [address] [facility] Propionate Propionate Kamara each Phan es - nostril Memoria [facility] ent [facility] ProAir ProAir Yes [place] [address] [facility] RespiClick RespiClick Kamara needed [facility] ent Clinics Vitamin Vitamin Yes K[place] not [facility] B-12 B-12 Kamara defined [facility] - Memoria l [facility] ent Clinics Centrum Centrum Yes Kosta not [facility] Adults Adults Kamara defined [facility] - [facility]oria l [facility] Clinics Allopurinol Allopurinol Yes [place] [address] [facility] Kamara [facility] Procedures This patient has no known procedures. Encounters Start End Encounter Admission Attending Care Care Encounter Source Date/Time Date/Time Type Type Clinicians Facility Department ID 2018-10-23 2018-10-23 [place] [id number] [facility] 09:00:00 09:00:00 t [facility] - [facility] 2018-09-06 2018-09-06 Outpatient [facility] [place] [id number] [facility] [address] 16:13:00 16:13:00 t [facility] 2018-08-23 2018-08-23 [place] [place] [id number] 14:30:00 14:30:00 t [facility] - and [facility] 2018-08-22 2018-08-22 Outpatient [place] [id number] [facility] 15:00:00 15:00:00 t [facility] - and [facility] Results This patient has no known results.
[2020-12-30] MEDS ORDERED: ACETAMINOPHEN 325 MG TABLET ONE (22:29)
[2020-12-30 23:18] LABS: SARS-COV-2 RT PCR NEGATIVE (NEGATIVE)
--- NOTE | 2020-12-31 00:02 | EDPHYS ---
Physician Documentation [facility] Name: Wiley Anne Age: 60 yrs Sex: Male : 1960 Arrival Date: 12/30/2020 Time: 21:35 Bed 26 Private MD: ED Physician Kel Louis HPI: 12/30 23:58 This 60 yrs old Male presents to ER via Ambulatory with complaints of Sore rn Throat. 23:58 The patient presents with sore throat. The patient describes throat pain as raw. Onset: rn The symptoms/episode began/occurred 4 day(s) ago. Severity of symptoms: At their worst the symptoms were moderate, in the emergency department the symptoms are unchanged. Modifying factors: The symptoms are alleviated by nothing, the symptoms are aggravated by nothing, Patient's oral intake status: good. Associated signs and symptoms: Pertinent positives: chills, fever, Pertinent negatives cough, flu-like symptoms, rhinorrhea, shortness of breath. The patient has not experienced similar symptoms in the past. The patient has not recently seen a physician. Historical: - Allergies: 22:07 [place]; ca1 22:07 Zofran; ca1 - PMHx: 22:07 CLL; LYMPHOMA; ca1 - PSHx: 22:07 None; ca1 - Immunization history:: Client reports having NOT received the Covid vaccine. Flu vaccine is not up to date. - Social history:: Smoking status: Patient denies any tobacco usage or history of. - Family history:: not pertinent. - Hospitalizations: : No recent hospitalization is reported. ROS: 23:58 Constitutional: + fever and chills Eyes: Negative for injury, pain, redness, and rn telehealth, ENT: + sore throat Neck: Negative for injury, pain, and swelling, Cardiovascular: Negative for chest pain, palpitations, and edema, Respiratory: Negative for shortness of breath, cough, wheezing, and pleuritic chest pain, Neuro: Negative for headache, weakness, numbness, tingling, and seizure. Exam: 23:58 Constitutional: This is a well developed, well nourished patient who is awake, alert, rn and in no acute distress. Head/Face: Normocephalic, atraumatic. ENT: No oral swelling, + mild pharyngeal erythema, no stridor Neck: Trachea midline, no thyromegaly or masses palpated, and no cervical lymphadenopathy. Supple, full range of motion without nuchal rigidity, or vertebral point tenderness. No Meningismus. Cardiovascular: Regular rate and rhythm. No pulse deficits. Respiratory: No increased work of breathing, no retractions or nasal flaring. Vital Signs: 22:04 BP 129 / 86; Pulse 96; Resp 18 S; Temp 100.5(O); Pulse Ox 96% on R/A; Weight 61.69 kg ca1 (R); Height 5 ft. 2 in. (157.48 cm) (R); 22:04 Body Mass Index 24.87 (61.69 kg, 157.48 cm) ca1 MDM: 23:31 Patient medically screened. rn 23:58 Differential diagnosis: group A strep tonsillitis, influenza, pharyngitis. Data rn reviewed: vital signs, nurses notes, lab test result(s), and as a result, I will discharge patient. Counseling: I had a detailed discussion with the patient and/or guardian regarding: the historical points, exam findings, and any diagnostic results supporting the discharge/admit diagnosis, lab results, the need for outpatient follow up, to return to the emergency department if symptoms worsen or persist or if there are any questions or concerns that arise at home. Response to treatment: the patient's symptoms have mildly improved after treatment, and as a result, I will discharge patient. Special discussion: I discussed with the patient/guardian in detail that at this point there is no indication for admission to the hospital. It is understood, however, that if the symptoms persist or worsen the patient needs to return immediately for re-evaluation. 12/30 22:15 Order name: Strep; Complete Time: 23:31 ca1 12/30 23:03 Order name: Throat Culture EDMS 12/30 23:18 Order name: COVID-19/FLU A+B; Complete Time: : EDMS Administered Medications: 22:15 Drug: Tylenol 650 mg Route: PO; ca1 12/31 00:07 Drug: Zithromax (azithromycin) 500 mg Route: PO; zb 00:13 Follow up: Response: Medication administered at discharge. zb Disposition: 12/31/20 00:01 Discharged to Home. Impression: Acute pharyngitis. - Condition is Stable. - Discharge Instructions: Pharyngitis. - Prescriptions for Zithromax Z- Roshan 250 mg Oral Tablet - take 1 tablet by ORAL route as directed for 5 days Day 1 - take two (2) tablets one time. Day 2, 3, 4 , 5 take one (1) tablet once daily.; 6 tablet. - Medication Reconciliation Form, Thank You Letter, Antibiotic Education, Prescription Opioid Use form. - Follow up: Private Physician; When: As needed; Reason: Recheck today's complaints, Re-evaluation by your physician. - Problem is new. - Symptoms have improved. Signatures: Dispatcher [employer] EDPA Kel Louis MD MD rn Acob, Opal RN Mercy Hightower RN RN zromel Corrections: (The following items were deleted from the chart) 12/30 22:36 22:15 Influenza Screen (A \T\ B)+BA.LAB.BRZ ordered. EDPA EDPA : 22:15 CORONAVIRUS+MR.LAB.BRZ ordered. [facility] EDPA 12/31 00:14 00:01 12/31/2020 00:01 Discharged to Home. Impression: Acute pharyngitis. Condition is zb Stable. Forms are Medication Reconciliation Form, Thank You Letter, Antibiotic Education, Prescription Opioid Use. Follow up: Private Physician; When: As needed; Reason: Recheck today's complaints, Re-evaluation by your physician. Problem is new. Symptoms have improved. rn
--- NOTE | 2020-12-31 00:02 | ER ---
Nurse's Notes [facility] Name: Wiley Anne Age: 60 yrs Sex: Male : 1960 Arrival Date: 12/30/2020 Time: 21:35 Bed 26 Private MD: Diagnosis: Acute pharyngitis Presentation: 12/30 22:04 Chief complaint: Patient states: Been feeling sick since 12/22/2020. Started with Nausea ca1 and diarrhea. Now muscle aches, fever and sore throat. Coronavirus screen: Client denies travel out of the [place] in the last 14 days. diarrhea, fever, muscle pain, nausea, sore throat, Client presents with at least one sign or symptom that may indicate coronavirus-19. Standard/surgical mask placed on the client. Provider contacted for isolation considerations. Ebola Screen: Patient negative for fever greater than or equal to 101.5 degrees Fahrenheit, and additional compatible Ebola Virus Disease symptoms Patient denies exposure to infectious person. Patient denies travel to an Ebola-affected area in the 21 days before illness onset. No symptoms or risks identified at this time. Initial Sepsis Screen: Does the patient meet any 2 criteria? No. Patient's initial sepsis screen is negative. Does the patient have a suspected source of infection? No. Patient's initial sepsis screen is negative. Risk Assessment: Do you want to hurt yourself or someone else? Patient reports no desire to harm self or others. Onset of symptoms was December 30, 2020. 22:04 Method Of Arrival: Ambulatory ca1 22:04 Acuity: JASMIN 4 ca1 22:15 Note Tylenol taken at 1800 today. ca1 Triage Assessment: 12/31 00:12 General: Behavior is calm. zb Historical: - Allergies: 12/30 22:07 [place]; ca1 22:07 Zofran; ca1 - PMHx: 22:07 CLL; LYMPHOMA; ca1 - PSHx: 22:07 None; ca1 - Immunization history:: Client reports having NOT received the Covid vaccine. Flu vaccine is not up to date. - Social history:: Smoking status: Patient denies any tobacco usage or history of. - Family history:: not pertinent. - Hospitalizations: : No recent hospitalization is reported. Screenin/28 00:11 Abuse screen: Denies threats or abuse. Denies injuries from another. Nutritional zb screening: No deficits noted. Tuberculosis screening: No symptoms or risk factors identified. Fall Risk None identified. Assessment: 00:09 General: Appears in no apparent distress. uncomfortable, Denies fever, feeling ill, zb fatigue, chills. Pain: Complains of pain in neck Pain does not radiate. Pain currently is 8 out of 10 on a pain scale. Pain began 4 days Alleviated by nothing. Aggravated by eating, drinking. Neuro: Level of Consciousness is awake, alert, obeys commands, Oriented to person, place, time, situation. Cardiovascular: Patient's skin is warm and dry. Respiratory: Airway is patent Respiratory effort is even, unlabored, Respiratory pattern is regular, Breath sounds are clear bilaterally. EENT: Throat is reddened. Derm: Skin is intact, is healthy with good turgor. Musculoskeletal: Circulation, motion, and sensation intact. Range of motion: intact in all extremities. Vital Signs: 12/30 22:04 BP 129 / 86; Pulse 96; Resp 18 S; Temp 100.5(O); Pulse Ox 96% on R/A; Weight 61.69 kg ca1 (R); Height 5 ft. 2 in. (157.48 cm) (R); 22:04 Body Mass Index 24.87 (61.69 kg, 157.48 cm) ca1 ED Course: 21:35 Patient arrived in ED. ag3 22:06 Triage completed. ca1 22:07 Arm band placed on right wrist. ca1 23:30 Kel Louis MD is Attending Physician. rn 12/31 00:04 Mercy Melo RN is Primary Nurse. zb 00:11 Patient has correct armband on for positive identification. Bed in low position. Call zb light in reach. Side rails up X 1. Adult w/ patient. Pulse ox on. NIBP on. Door closed. Noise minimized. 00:11 No provider procedures requiring assistance completed. Patient did not have IV access zb during this emergency room visit. Administered Medications: 12/30 22:15 Drug: Tylenol 650 mg Route: PO; ca1 12/31 00:07 Drug: Zithromax (azithromycin) 500 mg Route: PO; zb 00:13 Follow up: Response: Medication administered at discharge. zb Outcome: 00:01 Discharge ordered by . rn 00:11 Discharged to home ambulatory, with family. zb 00:11 Condition: stable 00:11 Discharge instructions given to patient, family, Instructed on discharge instructions, follow up and referral plans. medication usage, Demonstrated understanding of instructions, follow-up care, medications. 00:14 Patient left the ED. zb Signatures: Kel Louis MD MD rn Gomez, Alice ag3 Opal Hammer RN RN ca1 Brown, Zipporah, RN RN zromel Corrections: (The following items were deleted from the chart) 00:14 00:12 Response: No adverse reaction; No change in condition zb zb
[2020-12-31] MEDS ORDERED: AZITHROMYCIN 250 MG TAB ONE (00:25)
[2020-12-31 01:03] VITALS: BP 129/86; TEMP 100.5; O2SAT 96
== END 2020-12-31 00:14 | disposition home or self-care (01) ==
LOC: ER 21:31
DX: J02.9 Acute pharyngitis, unspecified (principal); Z20.822 Contact with and (suspected) exposure to COVID-19; Z85.72 Personal history of non-Hodgkin lymphomas; Z88.5 Allergy status to narcotic agent; Z88.8 Allergy status to other drugs, medicaments and biological substances
CPT/HCPCS: 87070; 87081; 0240U; 99283

== ENCOUNTER 2021-01-05 10:48 | Emergency (ER) | payer OTHER ==
--- OUTSIDE RECORDS SUMMARY | 2021-01-05 10:51 | XMS REPORT | Continuity of Care Document ---
:1960 Author Organization [facility] t Address [address] [place] [address] Care Team Providers Name Role Phone Unavailable [...] ia 2-04 [facility] - [facility]: Medical 00 [place] Diffuse Diffuse Disease Active 2015-[address] [facility] [...] s - seasonal seasonal Memori a l [facility] Clinics Essential Essential Problem Active [facility] (primary) (primary) [facility] s - hypertensi hypertensi Me moria on on l [facility]psychiatric ent Clinics Paresthesi Paresthesi Problem Active [facility] a of skin a of skin Luke s - [facility] l [facility] Scratched Scratched Problem Active [facility] by cat, by cat, [facility] - initial initial Memoria encounter encounter l Outpsychiatric ent [facility] Asthmatic Asthmatic Problem Active [facility] bronchitis bronchitis Brandi kes - [facility] CLL CLL Problem Active [facility] (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[facility] - lymphocyti lymphocyti Me moria c c l leukemia) leukemia) Outp ati ent Clinics Tenosynovi Tenosynovi Diagnosis Active [facility] tis of tis of [facility] - left ankle left ankle Me moria l [facility] Clinics Pain in Pain in Diagnosis Active [facility] left ankle left ankle Brandi kes - and joints and joints Me moria of left of left l foot foot Outpsychiatric ent Clinics Sprain of Sprain of Diagnosis Active [facility] other other [facility] - ligament ligament Memori a of left of left l ankle, ankle, Outpsychiatric sequela sequela ent Clinics Allergies, Adverse Reactions, Alerts Allergy Allergy Status Severity Reaction(s) Onset Inactive Treating Comm ents Source Name Type Date Date Clinician Ondanset Adverse Active Info Not [facility] becca Reaction Available [facility] Lisinopr Adverse Active headache, [facility] il Reaction numbness/tin Brandi kes - gling to R [facility]ori a arm l [facility] Hydrocod Adverse Active Info Not [facility] one-Acet Reaction Available Phan es - aminophe [facility] n l [facility] Social History Social Habit Start Date Stop Date Quantity Comments Source Sex Assigned At [facility] Tobacco use and 2016-08-05 2016-08-05 Never used [facility] - exposure 00:00:00 00:00:00 [facility] Alcohol intake 2016-08-05 2016-08-05 Current [facility] Phan es - 00:00:00 00:00:00 non-drinker of Medical Ce nter alcohol (finding) Smoking Status Start Date Stop Date Source Never smoker [facility] Medications Ordered Filled Start Stop Current Ordering Indication Dosage Frequency Signature Comments Components Source Medication Medication Date Date Medication? Clinician (SIG) Name Name Ibrutinib Ibrutinib 2018-0 Yes [place] [address] [facility] 4-11 Kamara [facility] - 00:00: [facility] Clinics Fluticasone Fluticasone Yes Kosta [address] [facility] Propionate Propionate Kamara each Phan es - nostril [facility] ProAir ProAir Yes K[place] [address] [facility] RespiClick RespiClick Kamara needed L ukes - [facility] ent Clinics Vitamin Vitamin Yes Kosta not [facility] B-12 B-12 Kamara defined [facility] - [facility] Centrum Centrum Yes Kosta not [facility] Adults Adults Kamara defined [facility] - [facility] Allopurinol Allopurinol Yes [place] [address] [facility] Kamara [facility] - [facility] ent Clinics Procedures This patient has no known procedures. Encounters Start End Encounter Admission Attending Care Care Encounter Source Date/Time Date/Time Type Type Clinicians Facility Department ID 2018-10-23 2018-10-23 Outpatient [place] [id number] [facility] 09:00:00 09:00[facility]00 [facility] 2018-09-06 2018-09-06 Outpatient [place] [id number] [facility] 16:13:00 16:13:00 t [facility] 2018-08-23 2018-08-23 Outpatient [facility] [place] [id number] [facility] 14:30:00 14:30:00 t [facility] 2018-08-22 2018-08-22 Outpatient [place] [id number] [facility] 15:00:00 15:00:00 t [facility] Results This patient has no known results.
[2021-01-05] MEDS ORDERED: VANCOMYCIN 1 GM/VIAL ONE (12:33)
[2021-01-05] MEDS ORDERED: NA CHLORIDE 0.9% 250 ML ONE (12:34)
[2021-01-05] MEDS ORDERED: KETOROLAC 30 MG/ML INJ ONE (12:34)
--- NOTE | 2021-01-05 12:54 | RAD REPORT ---
EXAM DESCRIPTION: RAD - Chest Single View - 01/05/2021 12:42 pm CLINICAL HISTORY: CONGESTION COMPARISON: Two view chest December 2017 TECHNIQUE: AP portable chest image was obtained 01/05/2021 12:42 pm . FINDINGS: Lungs are clear. Interstitial pattern matches comparison. Heart and vasculature are normal . No measurable pleural effusion and no pneumothorax. No acute bony abnormality seen. No acute aortic findings suspected. IMPRESSION: No acute cardiopulmonary process.
[2021-01-05 13:11] LABS: Absolute Lymphocytes (CBC) 0.9 K/uL (0.7-4.9); Hematocrit 43.1 % (39.6-49.0); Lymphocytes % 75.9 % (15.3-44.8); RBC Red Blood Cell Count 5.01 M/uL (4.33-5.43)
--- NOTE | 2021-01-05 13:11 | RAD REPORT ---
EXAM DESCRIPTION: CT - Orbits W/Cont - 01/05/2021 12:49 pm CLINICAL HISTORY: Bilateral eye redness and pain COMPARISON: None. TECHNIQUE: Axial 2 mm thick images of the orbits were obtained during dynamic enhancement using todd onic contrast. Sagittal and coronal reformatted images were generated and reviewed. All CT scans are performed using dose optimization technique as appropriate and may include automated exposure control or mA/KV adjustment according to patient size. FINDINGS: No signal abnormality or enhancement abnormality of the globes. Optic nerves, extraocular muscles and orbital fat all have a normal appearance. No post septal abnormalities are identifiable. The lacrimal glands are normal size and show normal enhancement pattern. There is enhancement without mass or gross thickening of the eyelids. Periorbital soft tissues do hamilton ear mildly edematous. No drainable fluid collection seen. Mastoid air cells are clear. Mucosal thickening changes are present in the maxillary sinuses without air-fluid level. Mucosal thickening changes are present through much of the ethmoid air cells anterio rly extending into the right frontal sinus which is fully opacified. No destructive bone process seen . Sphenoid sinus is clear. IMPRESSION: Bilateral periorbital cellulitis changes are present as detailed. There is no mass, absc ess, foreign body or drainable fluid collection. No post septal orbital abnormality. No abnormality of the globes. Extensive mucosal thickening of the right frontal sinus and bilateral ethmoid air cells. Mild mucosal thickening in the maxillary sinuses.
[2021-01-05 13:12] LABS: ALT/SGPT 23 U/L (12-78); AST/SGOT 14 U/L (15-37); Albumin 3.3 g/dL (3.4-5.0); Alkaline Phosphatase 85 U/L (45-117); BUN Blood Urea Nitrogen 12 mg/dL (7-18); Bicarbonate 26 mmol/L (21-32); Bilirubin Total 0.9 mg/dL (0.2-1.0); Glucose Level 81 mg/dL (74-106); Potassium 3.1 mmol/L (3.5-5.1); Sodium Level 135 mmol/L (136-145)
--- NOTE | 2021-01-05 13:59 | EDPHYS ---
Physician Documentation [facility] Name: Wiley Anne Age: 60 yrs Sex: Male : 1960 Arrival Date: 01/05/2021 Time: 10:51 Bed 2 Private MD: ED Physician Berhane Strong HPI: 01/05 13:49 This 60 yrs old Male presents to ER via Ambulatory with complaints of eye ma2 pain and redness a. 13:49 Onset: The symptoms/episode began/occurred gradually, 2 day(s) ago. Associated signs ma2 and symptoms: Pertinent negatives: dizziness, headache, runny nose. Severity of symptoms: At their worst the symptoms were moderate in the emergency department the symptoms are unchanged. The patient has experienced similar episodes in the past. has hx of lymphoma and cll, takes weekly chemotherapy. was here with acute bronchtitis that has improved and now has eye pain and redness. Historical: - Allergies: 11:11 [place]; em 11:11 Zofran; em - PMHx: 11:11 CLL; LYMPHOMA; em - PSHx: 11:11 None; em - Immunization history:: Adult Immunizations up to date. - Social history:: Smoking status: Patient denies any tobacco usage or history of. Patient/guardian denies using alcohol, street drugs, The patient lives with family. - Family history:: not pertinent. ROS: 13:49 Constitutional: Negative for fever, chills, and weight loss. ma2 13:49 All other systems are negative. Exam: 13:49 Visual Acuity: Visual acuity is within normal limits. ma2 13:49 Constitutional: This is a well developed, well nourished patient who is awake, alert, and in no acute distress. Head/Face: Normocephalic, atraumatic. Eyes: Pupils equal round and reactive to light, extra-ocular motions intact. Lids and lashes normal. Conjunctiva and sclera are red an injected yet non-icteric. Cornea within normal limits. Periorbital areas with no swelling, redness, or edema. IOP is right 16, left 18 ENT: Nares patent. No nasal discharge, no septal abnormalities noted. Tympanic membranes are normal and external auditory canals are clear. Oropharynx with no redness, swelling, or masses, exudates, or evidence of obstruction, uvula midline. Mucous membranes moist. Neck: Trachea midline, no thyromegaly or masses palpated, and no cervical lymphadenopathy. Supple, full range of motion without nuchal rigidity, or vertebral point tenderness. No Meningismus. Chest/axilla: Normal chest wall appearance and motion. Nontender with no deformity. No lesions are appreciated. Cardiovascular: Regular rate and rhythm with a normal S1 and S2. No gallops, murmurs, or rubs. Normal PMI, no JVD. No pulse deficits. Respiratory: Lungs have equal breath sounds bilaterally, clear to auscultation and percussion. No rales, rhonchi or wheezes noted. No increased work of breathing, no retractions or nasal flaring. Abdomen/GI: Soft, non-tender, with normal bowel sounds. No distension or tympany. No guarding or rebound. No evidence of tenderness throughout. Skin: Warm, dry with normal turgor. Normal color with no rashes, no lesions, and no evidence of cellulitis. MS/ Extremity: Pulses equal, no cyanosis. Neurovascular intact. Full, normal range of motion. Neuro: Awake and alert, GCS 15, oriented to person, place, time, and situation. Cranial nerves II-XII grossly intact. Motor strength 5/5 in all extremities. Sensory grossly intact. Cerebellar exam normal. Normal gait. Vital Signs: 11:08 BP 150 / 85; Pulse 95; Resp 18; Temp 100.5(O); Pulse Ox 98% on R/A; Weight 61.69 kg; em Height 5 ft. 2 in. (157.48 cm); Pain 5/10; 13:30 BP 148 / 78; Pulse 88; Resp 16; Pulse Ox 99% on R/A; hb 14:30 BP 138 / 84; Pulse 82; Resp 15; Pulse Ox 99% on R/A; hb 11:08 Body Mass Index 24.87 (61.69 kg, 157.48 cm) em MDM: 11:48 Patient medically screened. ma2 13:49 Differential diagnosis: Corneal abrasion of Corneal ulcer of Acute iritis of ma2 Ultraviolet keratitis in. Data reviewed: vital signs, nurses notes. Counseling: I had a detailed discussion with the patient and/or guardian regarding: the historical points, exam findings, and any diagnostic results supporting the discharge/admit diagnosis, the presence of at least one elevated blood pressure reading (>120/80) during this emergency department visit, to return to the emergency department if symptoms worsen or persist or if there are any questions or concerns that arise at home. 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 he is low risk febrile neutropenia with MASCC risk index of 22, blood cultures sent, will send home on cipro/Augmentin and he will return to er for any worsening of symptoms . 01/05 12:09 Order name: CMP; Complete Time: 13:17 ma2 01/05 12:09 Order name: CBC with Diff ut2 01/05 12:09 Order name: Chest Single View XRAY; Complete Time: 13:17 ut2 01/05 12:09 Order name: Blood Culture Adult (2) ut2 01/05 13:05 Order name: CREATININE WHOLE BLOOD EDMS 01/05 14:45 Order name: Manual Differential EDMS 01/05 12:17 Order name: Orbits W/Cont; Complete Time: 13:17 EDMS Administered Medications: 12:37 Drug: vancoMYCIN 1 grams Route: IVPB; Infused Over: 2 hrs; Site: right antecubital; hb 12:40 Follow up: Response: No adverse reaction; IV Status: Completed infusion; IV Intake: hb 250ml 12:38 Drug: TORadol (ketorolac) 30 mg Route: IVP; Site: right forearm; hb 13:05 Follow up: Response: No adverse reaction hb 13:47 Drug: Potassium Chloride 10 mEq Route: IV; Rate: calculated rate; Site: right forearm; hb 14:44 Follow up: Response: No adverse reaction; IV Status: Completed infusion; IV Intake: 50mlhb 13:47 Drug: morphine 4 mg Route: IVP; Site: right forearm; hb 14:27 Follow up: Response: No adverse reaction hb 13:47 Drug: Zofran (Ondansetron) 4 mg Route: IVP; Site: right forearm; hb 14:27 Follow up: Response: No adverse reaction hb 14:44 Drug: Ciprofloxacin 750 mg Route: PO; hb 14:44 Follow up: Response: Medication administered at discharge. hb Disposition: 01/05/21 13:58 Discharged to Home. Impression: Neutropenia - febril, Cellulitis and acute lymphangitis of face - preseptal. - Condition is Stable. - Discharge Instructions: Cellulitis, Adult, Potassium Content of Foods, Hypokalemia. - Prescriptions for Gentamicin 0.3 % Ophthalmic Drops - instill 1 drop by OPHTHALMIC route every 4 hours for 7 days; 1 bottle. Potassium Chloride 20 meq Oral Packet - take 1 packet by ORAL route once daily 1 packet in 6 (six) ounces of water or juice; Take after meal; 30 packet. Diclofenac Sodium 75 mg Oral Tablet Sustained Release - take 1 tablet by ORAL route 2 times per day; 30 tablet. Augmentin 875- 125 mg Oral Tablet - take 1 tablet by ORAL route every 12 hours for 10 days; 20 tablet. Cipro 500 mg Oral Tablet - take 1.5 tablet by ORAL route every 12 hours for 7 days; 14 tablet. - Medication Reconciliation Form, Thank You Letter, Antibiotic Education, Prescription Opioid Use form. - Follow up: Kd Portillo MD; When: Tomorrow; Reason: Continuance of care. Signatures: Dispatcher [employer] Geoff Cleaning RN RN Kiersten El RN RN Berhane Strong MD MD ma2 Corrections: (The following items were deleted from the chart) 14:46 13:58 01/05/2021 13:58 Discharged to Home. Impression: Neutropenia - febril; Cellulitis hb and acute lymphangitis of face - preseptal. Condition is Stable. Discharge Instructions: Potassium Content of Foods, Hypokalemia. Prescriptions for Gentamicin 0.3 % Ophthalmic Drops - instill 1 drop by OPHTHALMIC route every 4 hours for 7 days; 1 bottle, Potassium Chloride 20 meq Oral Packet - take 1 packet by ORAL route once daily 1 packet in 6 (six) ounces of water or juice; Take after meal; 30 packet, Diclofenac Sodium 75 mg Oral Tablet Sustained Release - take 1 tablet by ORAL route 2 times per day; 30 tablet, Augmentin 875-125 mg Oral Tablet - take 1 tablet by ORAL route every 12 hours for 10 days; 20 tablet, Cipro 500 mg Oral Tablet - take 1.5 tablet by ORAL route every 12 hours for 7 days; 14 tablet. and Forms are Medication Reconciliation Form, Thank You Letter, Antibiotic Education, Prescription Opioid Use. Follow up: Kd Portillo; When: Tomorrow; Reason: Continuance of care. ma2
--- NOTE | 2021-01-05 13:59 | ER ---
Nurse's Notes [facility] Name: Wiley Anne Age: 60 yrs Sex: Male : 1960 Arrival Date: 01/05/2021 Time: 10:51 Bed 2 Private MD: Diagnosis: Neutropenia-febril;Cellulitis and acute lymphangitis of face-preseptal Presentation: 01/05 11:08 Chief complaint: Patient states: was here 1 week ago for sore throat, was prescribed a em z-pack and completed it yesterday, eye swelling and pain on Tuesday, but yesterday became worse, pt reports light sensitivity, denies fever. Coronavirus screen: Client denies travel out of the [place] in the last 14 days. Ebola Screen: Patient negative for fever greater than or equal to 101.5 degrees Fahrenheit, and additional compatible Ebola Virus Disease symptoms Patient denies exposure to infectious person. Patient denies travel to an Ebola-affected area in the 21 days before illness onset. No symptoms or risks identified at this time. Initial Sepsis Screen: Does the patient meet any 2 criteria? HR > 90 bpm. No. Patient's initial sepsis screen is negative. Does the patient have a suspected source of infection? No. Patient's initial sepsis screen is negative. Risk Assessment: Do you want to hurt yourself or someone else? Patient reports no desire to harm self or others. Onset of symptoms was January 05, 2021. 11:08 Method Of Arrival: Ambulatory em 11:08 Acuity: JASMIN 3 em Historical: - Allergies: 11:11 [place]; em 11:11 Zofran; em - PMHx: 11:11 CLL; LYMPHOMA; em - PSHx: 11:11 None; em - Immunization history:: Adult Immunizations up to date. - Social history:: Smoking status: Patient denies any tobacco usage or history of. Patient/guardian denies using alcohol, street drugs, The patient lives with family. - Family history:: not pertinent. Screenin:15 Abuse screen: Denies threats or abuse. Denies injuries from another. Nutritional hb screening: No deficits noted. Tuberculosis screening: No symptoms or risk factors identified. Fall Risk None identified. Assessment: 12:05 General: Appears in no apparent distress. uncomfortable, Behavior is calm, cooperative. hb Pain: Pain currently is 8 out of 10 on a pain scale. Neuro: Level of Consciousness is awake, alert, obeys commands, Oriented to person, place, time, situation. Cardiovascular: Patient's skin is warm and dry. Respiratory: Respiratory effort is even, unlabored, Respiratory pattern is regular, symmetrical. GI: No signs and/or symptoms were reported involving the gastrointestinal system. : No signs and/or symptoms were reported regarding the genitourinary system. EENT: bilateral periorbital swelling and scleral redness noted, reports eye pain 8/10. Reports ringing re throat. Derm: Skin is pink, warm \T\ dry. Musculoskeletal: No signs and/or symptoms reported regarding the musculoskeletal system. 13:00 Reassessment: Patient appears in no apparent distress at this time. Patient and/or hb family updated on plan of care and expected duration. Pain level reassessed. Patient is alert, oriented x 3, equal unlabored respirations, skin warm/dry/pink. 13:45 Reassessment: Patient appears in no apparent distress at this time. Patient and/or hb family updated on plan of care and expected duration. Pain level reassessed. Patient is alert, oriented x 3, equal unlabored respirations, skin warm/dry/pink. 14:05 Reassessment: Discharge pending completion of IV medication. hb 14:28 Reassessment: Patient appears in no apparent distress at this time. Patient and/or hb family updated on plan of care and expected duration. Pain level reassessed. Patient is alert, oriented x 3, equal unlabored respirations, skin warm/dry/pink. Vital Signs: 11:08 BP 150 / 85; Pulse 95; Resp 18; Temp 100.5(O); Pulse Ox 98% on R/A; Weight 61.69 kg; em Height 5 ft. 2 in. (157.48 cm); Pain 5/10; 13:30 BP 148 / 78; Pulse 88; Resp 16; Pulse Ox 99% on R/A; hb 14:30 BP 138 / 84; Pulse 82; Resp 15; Pulse Ox 99% on R/A; hb 11:08 Body Mass Index 24.87 (61.69 kg, 157.48 cm) em ED Course: 10:51 Patient arrived in ED. mr 11:11 Triage completed. em 11:11 Arm band placed on. em 11:48 Berhane Strong MD is Attending Physician. ma2 12:15 Patient has correct armband on for positive identification. Bed in low position. Call hb light in reach. Side rails up X 1. 12:15 Inserted saline lock: 22 gauge in right forearm, using aseptic technique. Blood hb collected. 12:38 Kiersten El, RN is Primary Nurse. hb 12:42 Chest Single View XRAY In Process Unspecified. EDMS 12:49 Orbits W/Cont In Process Unspecified. EDMS 13:57 Kd Portillo MD is Referral Physician. ma2 14:45 No provider procedures requiring assistance completed. IV discontinued, intact, hb bleeding controlled, No redness/swelling at site. Administered Medications: 12:37 Drug: vancoMYCIN 1 grams Route: IVPB; Infused Over: 2 hrs; Site: right antecubital; hb 12:40 Follow up: Response: No adverse reaction; IV Status: Completed infusion; IV Intake: hb 250ml 12:38 Drug: TORadol (ketorolac) 30 mg Route: IVP; Site: right forearm; hb 13:05 Follow up: Response: No adverse reaction hb 13:47 Drug: Potassium Chloride 10 mEq Route: IV; Rate: calculated rate; Site: right forearm; hb 14:44 Follow up: Response: No adverse reaction; IV Status: Completed infusion; IV Intake: 50mlhb 13:47 Drug: morphine 4 mg Route: IVP; Site: right forearm; hb 14:27 Follow up: Response: No adverse reaction hb 13:47 Drug: Zofran (Ondansetron) 4 mg Route: IVP; Site: right forearm; hb 14:27 Follow up: Response: No adverse reaction hb 14:44 Drug: Ciprofloxacin 750 mg Route: PO; hb 14:44 Follow up: Response: Medication administered at discharge. hb Intake: 12:40 IV: 250ml; Total: 250ml. hb 14:44 IV: 50ml; Total: 300ml. hb Outcome: 13:58 Discharge ordered by . ma2 14:45 Discharged to home ambulatory, with significant other. hb 14:45 Condition: stable 14:45 Discharge instructions given to patient, Instructed on discharge instructions, follow up and referral plans. medication usage, Demonstrated understanding of instructions, follow-up care, medications, Prescriptions given X x 5 14:46 Patient left the ED. hb Signatures: Dispatcher [employer] Nancy Mota Edgar, RN RN em Baxter, Heather, RN RN hb Alzahri, Mohammad, MD MD ma2
[2021-01-05] MEDS ORDERED: KCL 20 MEQ/100 mL IVPB 20 MEQ/100 ML BAG IV ONE (14:00)
[2021-01-05] MEDS ORDERED: NA CHLORIDE 0.9% 500 ML ONE (14:00)
[2021-01-05] MEDS ORDERED: MORPHINE 4 MG/ML SYR ONE (14:00)
[2021-01-05] MEDS ORDERED: ONDANSETRON 4 MG/2 ML VIAL ONE (14:00)
[2021-01-05] MEDS ORDERED: CIPROFLOXACIN HCL 500 MG TAB ONE (14:22)
[2021-01-05 14:46] LABS: Anisocytosis 1+; Blood Morphology Comment NOTED (NOT SEEN); Platelet Estimate ADEQ
[2021-01-05 14:52] VITALS: TEMP 100.5
[2021-01-05 14:54] VITALS: O2SAT 99
[2021-01-05 14:55] VITALS: BP 138/84
== END 2021-01-05 14:46 | disposition home or self-care (01) ==
LOC: ER 10:48
DX: L03.211 Cellulitis of face (principal); L03.212 Acute lymphangitis of face; D70.9 Neutropenia, unspecified; R50.81 Fever presenting with conditions classified elsewhere; C91.10 Chronic lymphocytic leukemia of B-cell type not having achieved remission; Z88.5 Allergy status to narcotic agent; Z88.8 Allergy status to other drugs, medicaments and biological substances
CPT/HCPCS: 87040 ×2; 85025; 36415; 82565; 80053; 70481; 71045; Q9967; J3480; J3370; J7050; J7040; J2405; 96365; 96375; 99284

== ENCOUNTER 2021-06-06 13:31 | Emergency (ER) | payer OTHER ==
--- NOTE | 2021-06-06 15:41 | RAD REPORT ---
EXAM DESCRIPTION: RAD - Chest Single View - 06/06/2021 3:33 pm CLINICAL HISTORY: CONGESTION COMPARISON: Chest Single View dated 01/05/2021; Chest Pa And Lat (2 Views) dated 12/15/2017; Chest Sing le View dated 12/13/2017; Chest Single View dated 08/07/2017 FINDINGS: Lines: None. Lungs: No evidence of edema or pneumonia. Pleural: No significant pleural effusions or pneumothorax. Cardiac: The heart size is within normal limits. Bones: No acute fractures. Other: IMPRESSION: No acute cardiopulmonary disease.
[2021-06-06] MEDS ORDERED: NA CHLORIDE 0.9% 1,000 ML ONE (15:44)
[2021-06-06] MEDS ORDERED: AZITHROMYCIN 250 MG TAB ONE (15:44)
[2021-06-06 16:10] LABS: SARS-COV-2 RT PCR POSITIVE (NEGATIVE)
[2021-06-06 16:10] LABS: Basophils % 0.3 % (0-1.3); Lymphocytes % 22.8 % (15.3-44.8); RBC Red Blood Cell Count 5.14 M/uL (4.33-5.43)
[2021-06-06] MEDS ORDERED: KETOROLAC 30 MG/ML INJ ONE (16:21)
[2021-06-06 16:30] LABS: ALT/SGPT 39 U/L (12-78); AST/SGOT 31 U/L (15-37); Albumin 4.1 g/dL (3.4-5.0); Alkaline Phosphatase 83 U/L (45-117); BUN Blood Urea Nitrogen 13 mg/dL (7-18); Bicarbonate 23 mmol/L (21-32); Bilirubin Direct 0.1 mg/dL (0-0.2); Bilirubin Total 0.4 mg/dL (0.2-1.0); Creatine Phosphokinase 79 U/L (39-308); Glucose Level 83 mg/dL (74-106); Lipase 122 U/L (73-393); NT PRO-BNP 18 pg/mL (<125); Potassium 3.4 mmol/L (3.5-5.1); Sodium Level 139 mmol/L (136-145); Troponin (Emerg Dept Use Only) < 0.02 ng/mL (0.0-0.045)
[2021-06-06 16:31] LABS: CKMB Creatine Kinase MB < 1.0 ng/mL (1.0-3.6)
[2021-06-06 16:33] LABS: Protime INR 1.03
--- NOTE | 2021-06-06 16:39 | EDPHYS ---
Physician Documentation [facility] Name: Wiley Anne Age: 60 yrs Sex: Male : 1960 Arrival Date: 06/06/2021 Time: 13:31 Bed 23 Private MD: ED Physician Berhane Strong HPI: 06/06 15:07 This 60 yrs old Male presents to ER via Ambulatory with complaints of at ma2 home+ covid test, wants another. 15:07 The patient or guardian reports cough, flu symptoms. Onset: The symptoms/episode ma2 began/occurred gradually, 3 day(s) ago. Associated signs and symptoms: Pertinent negatives: ear ache, rhinorrhea, sore throat. Severity of symptoms: At their worst the symptoms were moderate in the emergency department the symptoms are unchanged. The patient has experienced similar episodes in the past. Historical: - Allergies: 13:53 [place]; hb 13:53 Zofran; hb - PMHx: 13:53 CLL; LYMPHOMA; hb - Immunization history:: Client reports having NOT received the Covid vaccine. - Social history:: Smoking status: Patient denies any tobacco usage or history of. - Family history:: not pertinent. ROS: 15:07 Constitutional: Negative for fever, chills, and weight loss. ma2 15:07 All other systems are negative. Exam: 15:07 Constitutional: This is a well developed, well nourished patient who is awake, alert, ma2 and in no acute distress. Head/Face: Normocephalic, atraumatic. Eyes: Pupils equal round and reactive to light, extra-ocular motions intact. Lids and lashes normal. Conjunctiva and sclera are non-icteric and not injected. Cornea within normal limits. Periorbital areas with no swelling, redness, or edema. ENT: Nares patent. No nasal discharge, no septal abnormalities noted. Tympanic membranes are normal and external auditory canals are clear. Oropharynx with no redness, swelling, or masses, exudates, or evidence of obstruction, uvula midline. Mucous membranes moist. Neck: Trachea midline, no thyromegaly or masses palpated, and no cervical lymphadenopathy. Supple, full range of motion without nuchal rigidity, or vertebral point tenderness. No Meningismus. Chest/axilla: Normal chest wall appearance and motion. Nontender with no deformity. No lesions are appreciated. Cardiovascular: Regular rate and rhythm with a normal S1 and S2. No gallops, murmurs, or rubs. Normal PMI, no JVD. No pulse deficits. Respiratory: Lungs have equal breath sounds bilaterally, clear to auscultation and percussion. No rales, rhonchi or wheezes noted. No increased work of breathing, no retractions or nasal flaring. Abdomen/GI: Soft, non-tender, with normal bowel sounds. No distension or tympany. No guarding or rebound. No evidence of tenderness throughout. MS/ Extremity: Pulses equal, no cyanosis. Neurovascular intact. Full, normal range of motion. Neuro: Awake and alert, GCS 15, oriented to person, place, time, and situation. Cranial nerves II-XII grossly intact. Motor strength 5/5 in all extremities. Sensory grossly intact. Cerebellar exam normal. Normal gait. Vital Signs: 13:51 BP 138 / 87; Pulse 79; Resp 16; Temp 99.6(TE); Pulse Ox 98% on R/A; Weight 61.23 kg; hb Height 5 ft. 2 in. (157.48 cm); Pain 7/10; 15:00 BP 127 / 79; Pulse 74; Resp 18; Pulse Ox 99% ; bp 16:00 BP 136 / 85; Pulse 72; Resp 17; Pulse Ox 95% ; bp 17:04 BP 125 / 79; Pulse 68; Resp 16; Pulse Ox 97% ; bp 13:51 Body Mass Index 24.69 (61.23 kg, 157.48 cm) hb MDM: 13:56 Patient medically screened. ma2 15:07 Differential diagnosis: bronchitis, flu, URI. Data reviewed: vital signs. ma2 16:31 Antibiotic administration: The patient is discharged and will get outpatient ma2 antibiotics. Counseling: I had a detailed discussion with the patient and/or guardian regarding: the historical points, exam findings, and any diagnostic results supporting the discharge/admit diagnosis, the presence of at least one elevated blood pressure reading (>120/80) during this emergency department visit, the need for outpatient follow up. Response to treatment: the patient's symptoms have markedly improved after treatment. 06/06 15: Order name: BMP ma2 06/06 15: Order name: CBC with Diff ma2 06/06 15:01 Order name: CPK wv2 06/06 15:01 Order name: Ckmb wv2 06/06 15:01 Order name: Hepatic Function [facility] 06/06 15:01 Order name: Lipase; Complete Time: 16:38 ma2 06/06 15:01 Order name: Magnesium; Complete Time: 16:38 wv2 06/06 15:01 Order name: NT PRO-BNP; Complete Time: 16:38 wv2 06/06 15:01 Order name: PT-INR [facility] 06/06 15:01 Order name: Ptt, Activated [facility] 06/06 15:01 Order name: Troponin (emerg Dept Use Only); Complete Time: 16:38 ma2 06/06 15:02 Order name: Basic Metabolic Panel; Complete Time: 16:38 EDMS 06/06 15:01 Order name: XRAY CXR (1 view); Complete Time: 15:54 wv2 06/06 15:01 Order name: EKG; Complete Time: 15:02 wv2 06/06 15:01 Order name: Cardiac monitoring; Complete Time: 15:16 wv2 06/06 15:01 Order name: EKG - Nurse/Tech; Complete Time: 15:16 wv2 06/06 15:01 Order name: IV Saline Lock; Complete Time: 15:16 wv2 06/06 15:01 Order name: Labs collected and sent; Complete Time: 15:16 wv2 06/06 15:01 Order name: O2 Per Protocol; Complete Time: 15:16 wv2 06/06 15:01 Order name: O2 Sat Monitoring; Complete Time: 15:16 wv2 06/06 15:02 Order name: CBC with Automated Diff EDMS 06/06 15:02 Order name: Creatine Phosphokinase; Complete Time: 16:38 EDMS 06/06 15:02 Order name: CKMB Creatine Kinase MB; Complete Time: 16:38 EDMS 06/06 15:02 Order name: Liver (Hepatic) Function; Complete Time: 16:38 EDMS 06/06 16:11 Order name: COVID-19/FLU A+B; Complete Time: 16:31 EDMS Administered Medications: 15:30 Drug: NS 0.9% 1000 ml Route: IV; Rate: 1 bolus; Site: right forearm; bp 17:07 Follow up: IV Status: Completed infusion; IV Intake: 1000ml bp 15:30 Drug: AZITHromycin 500 mg Route: PO; bp 17:06 Follow up: Response: No adverse reaction bp Disposition Summary: 06/06/21 16:39 Discharge Ordered Location: Home ma2 Condition: Stable ma2 Diagnosis - Acute bronchitis, unspecified - with COVID - 19 ma2 Followup: ma2 - With: Private Physician - When: Tomorrow - Reason: Continuance of care Discharge Instructions: - Discharge Summary Sheet ma2 - Acute Bronchitis, Adult ma2 - COVID-19 ma2 - COVID-19 Frequently Asked Questions ma2 - COVID-19: Quarantine vs. Isolation - [facility] ma2 Forms: - Medication Reconciliation Form ma2 - Thank You Letter ma2 - Antibiotic Education ma2 - Prescription Opioid Use ma2 Prescriptions: - Diclofenac Sodium 75 mg Oral Tablet Sustained Release - take 1 tablet by ORAL route 2 times per day; 30 tablet; Refills: 0, Product ma2 Selection Permitted - Zithromax Z-Roshan 250 mg Oral Tablet - take 1 tablet by ORAL route as directed for 5 days Day 1 - take two (2) tablets ma2 one time. Day 2, 3, 4 , 5 take one (1) tablet once daily.; 6 tablet; Refills: 0, Product Selection Permitted - Medrol (Roshan) 4 mg Oral Tablets, Dose Pack - take 1 tablet by ORAL route as directed - follow package instructions; 1 ma2 packet; Refills: 0, Product Selection Permitted Signatures: Dispatcher [employer] EDKiersten Doll RN RN hb Peltier, Brian, RN RN bp Alzahri, Mohammad, MD MD ma2 Corrections: (The following items were deleted from the chart) 15:07 15:02 Influenza Screen (A \T\ B)+BA.LAB.BRZ ordered. EDMS EDMS 15:09 13:39 CORONAVIRUS+MR.LAB.BRZ ordered. EDMS EDMS
--- NOTE | 2021-06-06 16:39 | ER ---
Nurse's Notes [facility] Name: Wiley Anne Age: 60 yrs Sex: Male : 1960 Arrival Date: 06/06/2021 Time: 13:31 Bed 23 Private MD: Diagnosis: Acute bronchitis, unspecified-with COVID - 19 Presentation: 06/06 13:51 Chief complaint: Diarrhea, nausea, fever, and body aches x 2 days. TMAX 100.6. Reports hb + COVID home test today. Coronavirus screen: Client presents with at least one sign or symptom that may indicate coronavirus-19. Standard/surgical mask placed on the client. Provider contacted for isolation considerations. Ebola Screen: No symptoms or risks identified at this time. Initial Sepsis Screen: Does the patient meet any 2 criteria? No. Patient's initial sepsis screen is negative. Does the patient have a suspected source of infection? No. Patient's initial sepsis screen is negative. Risk Assessment: Do you want to hurt yourself or someone else? Patient reports no desire to harm self or others. Onset of symptoms was June 05, 2021. 13:51 Method Of Arrival: Ambulatory hb 13:51 Acuity: JASMIN 3 hb Triage Assessment: 14:00 General: Appears in no apparent distress. uncomfortable, Behavior is cooperative, bp appropriate for age, anxious. Pain: Denies pain. EENT: Reports nasal congestion. Neuro: No deficits noted. Cardiovascular: No deficits noted. Respiratory: Airway is patent Respiratory effort is even, unlabored. GI: Reports diarrhea. : No signs and/or symptoms were reported regarding the genitourinary system. Derm: No deficits noted. Musculoskeletal: No deficits noted. Historical: - Allergies: 13:53 [place]; hb 13:53 Zofran; hb - PMHx: 13:53 CLL; LYMPHOMA; hb - Immunization history:: Client reports having NOT received the Covid vaccine. - Social history:: Smoking status: Patient denies any tobacco usage or history of. - Family history:: not pertinent. Screenin:00 Abuse screen: Denies threats or abuse. Denies injuries from another. Nutritional bp screening: No deficits noted. Tuberculosis screening: No symptoms or risk factors identified. Fall Risk None identified. Assessment: 14:00 General: SEE TRIAGE NOTE. bp 16:00 Reassessment: No changes from previously documented assessment. Patient and/or family bp updated on plan of care and expected duration. Pain level reassessed. IVF INFUSING. ALL CURRENT ORDERS COMPLETED. 17:02 Reassessment: PT D/C HOME AMBULATORY, DX WITH COVID 19 BRONCHITIS. bp Vital Signs: 13:51 BP 138 / 87; Pulse 79; Resp 16; Temp 99.6(TE); Pulse Ox 98% on R/A; Weight 61.23 kg; hb Height 5 ft. 2 in. (157.48 cm); Pain 7/10; 15:00 BP 127 / 79; Pulse 74; Resp 18; Pulse Ox 99% ; bp 16:00 BP 136 / 85; Pulse 72; Resp 17; Pulse Ox 95% ; bp 17:04 BP 125 / 79; Pulse 68; Resp 16; Pulse Ox 97% ; bp 13:51 Body Mass Index 24.69 (61.23 kg, 157.48 cm) hb ED Course: 13:31 Patient arrived in ED. as 13:53 Triage completed. hb 13:53 Arm band placed on. hb 13:55 Berhane Strong MD is Attending Physician. ma2 14:00 Osvaldo Peraza, MOSES is Primary Nurse. bp 15:30 Inserted saline lock: 20 gauge in right forearm, using aseptic technique. Blood bp collected. 15:33 XRAY CXR (1 view) In Process Unspecified. EDMS 16:00 Patient has correct armband on for positive identification. Bed in low position. Call bp light in reach. Side rails up X2. 16:00 No provider procedures requiring assistance completed. bp 17:06 IV discontinued, intact, bleeding controlled, No redness/swelling at site. Pressure bp dressing applied. Administered Medications: 15:30 Drug: NS 0.9% 1000 ml Route: IV; Rate: 1 bolus; Site: right forearm; bp 17:07 Follow up: IV Status: Completed infusion; IV Intake: 1000ml bp 15:30 Drug: AZITHromycin 500 mg Route: PO; bp 17:06 Follow up: Response: No adverse reaction bp Intake: 17:07 IV: 1000ml; Total: 1000ml. bp Outcome: 16:39 Discharge ordered by . ma2 17:06 Discharged to home ambulatory. bp 17:06 Condition: stable 17:06 Discharge instructions given to patient, Instructed on discharge instructions, follow up and referral plans. medication usage, Demonstrated understanding of instructions, follow-up care, medications, Prescriptions given X 3. 17:07 Patient left the ED. bp Signatures: Dispatcher [employer] Arlene Horner Heather, RN RN Osvaldo Peraza RN RN bp Berhane Strong MD MD ma2 Corrections: (The following items were deleted from the chart) 17:04 14:00 General: Appears bp bp 17:05 16:00 BP 127 / 79; Pulse 68bpm; Resp 17bpm; Pulse Ox 95%; bp bp
[2021-06-06 17:36] VITALS: TEMP 99.6
[2021-06-06 17:40] VITALS: BP 125/79; O2SAT 97
[2021-06-06 19:37] LABS: Blood Morphology Comment NOT SEEN (NOT SEEN); Platelet Estimate DECR
--- NOTE | 2021-06-09 18:17 | EKG ---
Test Date: 2021-06-06 Test Time: 15:45:34 Service Support Representative: BP MEASUREMENT RESULTS: Intervals: Rate: 70 VT: 152 QRSD: 68 QT: 372 QTc: 401 [place]: P: 77 VT: 152 QRS: 46 T: 65 INTERPRETIVE STATEMENTS: Normal sinus rhythm Normal ECG Compared to ECG 12/13/2017 17:17:55 No significant changes Electronically Signed On 06-09-21 18:06:52 CDT by Fransisco Chong
== END 2021-06-06 17:07 | disposition home or self-care (01) ==
LOC: ER 13:31
DX: U07.1 COVID-19 (principal); J20.9 Acute bronchitis, unspecified; Z88.5 Allergy status to narcotic agent; Z88.8 Allergy status to other drugs, medicaments and biological substances
CPT/HCPCS: 96361; 93005; 85025; 80048; 36415; 83735; 82550; 85610; 80076; 85730; 84484; 82553; 83690; 83880; 0240U; 71045; 96360; 99284; J7030

== ENCOUNTER 2022-05-06 08:21 | Day surgery (SDC) | payer OTHER ==
[2022-05-05 12:51] LABS: Absolute Lymphocytes (CBC) 1.6 K/uL (0.7-4.9); Hematocrit 51.6 % (39.6-49.0); Lymphocytes % 32.1 % (15.3-44.8); MCV 89.3 fL (80-100); MPV 8.3 fL (7.6-11.3); RBC Red Blood Cell Count 5.78 M/uL (4.33-5.43)
[2022-05-05 13:01] LABS: SARS-CoV-2 Antigen Rapid Res Negative (Negative)
[2022-05-05 13:07] LABS: Potassium 4.2 mmol/L (3.5-5.1)
[2022-05-05 17:54] LABS: Blood Morphology Comment NOT SEEN (NOT SEEN); Platelet Estimate DECR; White Blood Cell Scan OK (OK)
--- NOTE | 2022-05-05 18:27 | EKG ---
Test Date: 2022-05-05 Test Time: 12:33:14 Customs Collector: ANA LUISA MEASUREMENT RESULTS: Intervals: Rate: 54 SC: 154 QRSD: 88 QT: 416 QTc: 394 [place]: P: 66 SC: 154 QRS: 67 T: 72 INTERPRETIVE STATEMENTS: Sinus bradycardia Otherwise normal ECG Compared to ECG 04/14/2022 12:02:54 No significant changes Electronically Signed On 05-05-22 18:27:29 CDT by Fransisco Chong
[2022-05-06] MEDS ORDERED: CEFOXITIN SODIUM 1 GM/VIAL ONE (08:43)
[2022-05-06] MEDS ORDERED: Ringers Lactate 1,000 ML IV ONE ×2 (08:43→12:55)
[2022-05-06] MEDS ORDERED: ONDANSETRON 4 MG/2 ML VIAL ONE ×2 (09:39→14:55)
[2022-05-06] MEDS ORDERED: LIDOCAINE 2% MPF 5 ML VIAL ONE (09:39)
[2022-05-06] MEDS ORDERED: propofoL 200 MG/20 ML VIAL IV ONE (09:39)
[2022-05-06] MEDS ORDERED: FENTANYL CITR 100 MCG/2 ML ONE ×2 (09:39→10:33)
[2022-05-06] MEDS ORDERED: MIDAZOLAM HCL 2 MG/2 ML INJ ONE (09:39)
[2022-05-06] MEDS: BUPIVACAINE 0.25% PF 30 ML VIAL ONE ×2 (09:41→10:18)
[2022-05-06] MEDS ORDERED: ROCURONIUM 50 MG/5 ML VIAL IV ONE (09:43)
[2022-05-06] MEDS ORDERED: GLYCOPYRROLATE 0.2 MG/ML SYR ONE (09:44)
[2022-05-06] MEDS ORDERED: NEOSTIGMINE 1 MG/ML -10 ML VIAL ONE (09:46)
[2022-05-06] MEDS ORDERED: LABETALOL 20 MG/4ML SYRINGE IV ONE (10:33)
--- NOTE | 2022-05-06 11:56 | P.OP ---
Preoperative diagnosis: Chronic Cholecystitis Postoperative diagnosis: Chronic Cholecystitis Primary procedure: Laparoscopic Cholecystectomy with ICG Cholangiography Anesthesia: GETA + Local Estimated blood loss: <20cc Specimen: gallbladder Findings: very short cystic duct, intrahepatic GB, dense adhesions in hartmans Implants: Sarina Hemostatic Powder Transferred to: Recovery Room Condition: Good
[2022-05-06] MEDS: HYDROMORPHONE HCL 1 MG/ML INJ ONE ×6 (12:23→12:48)
--- NOTE | 2022-05-06 12:58 | OP ---
Date of Procedure: 05/06/2022 Surgeon: Steffen Hernandez MD, Preoperative Diagnosis: Chronic cholecystitis/biliary dyskinesia. Postoperative Diagnosis: Chronic cholecystitis/biliary dyskinesia. Procedures Performed: Laparoscopic cholecystectomy with ICG cholangiography, that is Indocyanine Gre en. Anesthesia: General endotracheal plus local with 0.25% Marcaine. Estimated Blood Loss: Less than 20 cc. Specimen: Gallbladder. Findings: 1.Very short cystic duct. 2.Intrahepatic gallbladder. 3.Dense adhesions at the Haily's pouch of the gallbladder. Implants: Sarina hemostatic powder. Disposition: Patient was transferred to the recovery room in good condition. Procedure In Detail: After informed consent was obtained, patient was brought to the operating room, prepped and draped in the usual sterile fashion. After adequate anesthesia was achieved, a supraumb ilical area was anesthetized with 0.25% Marcaine, sharply incised. A 5 mm trocar was placed under di rect visualization without evidence of complication. Insufflation was obtained to 15 mmHg at this ti me. No injury to vital structures upon entry into the abdomen. I placed three additional trocars, o ne in the epigastrium, one in the right upper quadrant, one in the right-sided abdomen. All 5 mm tro cars were placed under direct visualization without evidence of complication. The umbilical trocar w as then upsized to a 12 mm under direct visualization without evidence of complication. The patient was then positioned head up right-sided position. Ratcheted grasper was used to grasp the patient's gallbladder, placed towards the patient right shoulder. Dissection continued down to the Haily's pouch to expose what appeared to be cystic duct and cystic artery. These were both in close appositi on and under significant dense scar and adhesion type material. ICG cholangiography confirmed a very short cystic duct. At this time, I skeletonized the 2 structures identified as cystic duct and cyst ic artery. Critical view of safety was obtained at this time. I then placed double titanium clips o n the proximal side and singly on the distal side of both the cystic duct and cystic artery. I then ligated the 2 above structures without evidence of complication. I then removed the gallbladder from the hepatic fossa. There were multiple small bleeding arterial pumping vessels from the hepatic bed , which were encountered and fulgurated throughout the procedure with minimal bleeding. The gallblad michelle was then placed in EndoCatch bag and removed through the umbilical trocar site and sent off for p athologic examination. The abdomen was then copiously irrigated at this time and I used some additio nal hemostatic maneuvers on the distal aspect of the gallbladder fossa and I inspected for any leakag e of bile at the end of the procedure. Clips were found to be in good position. I then performed IC G cholangiography, did not see any bile leaking from the clips, cystic duct structure and no addition al hemostatic was required. However, because the patient did have some additional hemostatic measure s required, I opted to place some Sarina hemostatic powder spray into the hepatic fossa. At this poi nt, it was sprayed into the hepatic fossa without evidence of complication. The remaining effluent w as suctioned out. The areas were inspected once again for 3 to 4 minutes without any evidence of ble eding or accumulation of any other fluids at this point. Patient was positioned back in neutral posi tion. Remaining effluent was suctioned out in the right upper quadrant, which was clear fluid. At t his point, the umbilical trocar site was closed using a Javi-Daniel suture passer with 0 Vicryl i n an interrupted fashion with good approximation of tissues. The abdomen was then completely desuffl ated under direct vision without evidence of complication. Remaining trocars were removed. All skin incisions were then copiously irrigated, and closed with a 4-0 Monocryl in running fashion. Dermabo nd was placed over top. The patient tolerated the procedure well without evidence of complication and transferred to PACU in good condition. All counts were cor rect at the end of the case. SONIA/CHASE Voice ID: [id number] Report ID: [id number]
[2022-05-06] MEDS ORDERED: PROMETHAZINE INJ 25 MG/ML AMP ONE (13:02)
[2022-05-06 13:55] VITALS: BP 180/94; TEMP 96.9; O2SAT 95
[2022-05-06] MEDS ORDERED: HYDROCODONE/APAP 10/325 TAB ONE (14:27)
[2022-05-06] MEDS ORDERED: CODEINE 30MG/APAP 300MG TAB ONE (14:31)
== END 2022-05-06 15:35 | disposition home or self-care (01) ==
LOC: OR 08:21
PROVIDERS: ATTEND Surgery
PROC: BF03YZZ Plain Radiography of Gallbladder and Bile Ducts using Other Contrast (ICD-10-PCS; 2022-05-06)
PROC: 0FT44ZZ Resection of Gallbladder, Percutaneous Endoscopic Approach (ICD-10-PCS; 2022-05-06)
PROC: 0FT44ZZ Resection of Gallbladder, Percutaneous Endoscopic Approach (ICD-10-PCS; principal; 2022-05-06 09:30)
DX: K80.10 Calculus of gallbladder with chronic cholecystitis without obstruction (principal); K82.8 Other specified diseases of gallbladder; Z20.822 Contact with and (suspected) exposure to COVID-19
CPT/HCPCS: 93005; 85025; 80048; 36415; 88304; 87811; 47563; J2704; J2710; J2550; J2250; J3010 ×2; J1170 ×3; J7120 ×2; J0694; J2405 ×2; C9776; J2001

== ENCOUNTER 2022-05-06 21:48 | Inpatient (IN) | payer OTHER ==
--- OUTSIDE RECORDS SUMMARY | 2022-05-06 21:52 | XMS REPORT | Continuity of Care Document ---
:1960 Author Organization [facility] t Address [address] [place] [address] Care Team Providers Name Role Phone Ashvin Carter Attending Clinician Unavailable Jordan Juarez Admitting Clinician Unavailable Payers Payer Name Policy Type Policy Number Effective Date Expiration Date S ource Problems Condition Condition Condition Status Onset Resolution Last Treating Co mments Source Name Details Category Date Date Treatment Clinician Date Pneumonia Pneumonia Disease Active 2015-[address] [facility] lobes due lobes due 00 Cent er to to infectious infectious organism organism Hyponatrem Hyponatrem Disease Active 2015-[address] [facility] 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 2 Brandi kes ban ban 00:00: Medical 00 Center SIRS SIRS Disease Active 2015-[address] [facility] (systemic (systemic 2- [facility] s inflammato inflammato 00:00: Me dical ry ry 00 Center response response syndrome) syndrome) Lymphoma, Lymphoma, Disease Active 2015-[address] low grade low grade 2- [facility] 00:[facility]: Medical 00 Center Weakness Weakness Disease Active 2015-09 [facility] Anemia Anemia Disease Active 2015-[address] [facility] 00:[facility]: Medical 00 [place] Thrombocyt Thrombocyt Disease Active 2015-[address] openia openia 10-06 [facility] 00:00: Medical 00 [place] Shortness Shortness Disease Active 2015-[address] of breath of breath 10-06 ke s 00:00: Medical 00 Center Other Other Problem Active Common chronic chronic Spirit pain pain - [facility] Allergic Allergic Problem Active Commo n rhinitis, rhinitis, Spir it seasonal seasonal - [facility] Essential Essential Problem Active Com mon (primary) (primary) Spir it hypertensi hypertensi - [facility] Paresthesi Paresthesi Problem Active C ommon a of skin a of skin Spir it - [facility] Scratched Scratched Problem Active Com mon by cat, by cat, Spirit initial initial - [facility] encounter encounter [facility] Asthmatic Asthmatic Problem Active Com mon bronchitis bronchitis Sp epifanio - [facility] CLL CLL Problem Active Common (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Spirit lymphocyti lymphocyti - [facility] leukemia) leukemia) [facility] Tenosynovi Tenosynovi Diagnosis Active Common tis of tis of Spirit left ankle left ankle - [facility] Pain in Pain in Diagnosis Active Commo n left ankle left ankle Sp epifanio and joints and joints - [facility] of left of left St foot foot [facility] Sprain of Sprain of Diagnosis Active C ommon other other Spirit ligament ligament - [facility] of left of left St ankle, ankle, [facility] sequela sequela [facility] Allergies, Adverse Reactions, Alerts Allergy Allergy Status Severity Reaction(s) Onset Inactive Treating Comm ents Source Name Type Date Date Clinician No Known DA Active [facility] Allergie 10-05 Clear s 00:00: Rodríguez 00 [facility] Ondanset Adverse Active Info Not Commo n becca Reaction Available Spiri t - [facility] Lisinopr Adverse Active headache, Comm on il Reaction numbness/tin Sp epifanio gling to R - [facility] arm [facility] Hydrocod Adverse Active Info Not Commo n one-Acet Reaction Available Spi rit aminophe - [facility] n [facility] NO KNOWN Allergy Active [facility] ALLERGIE [facility] Social History Social Habit Start Date Stop Date Quantity Comments Source Tobacco use and 2016-08-05 2016-08-05 Never used [facility] exposure 00:00:00 00:00:00 Medical Center Alcohol intake 2016-08-05 2016-08-05 [facility] non-drinker of Medical Ce nter alcohol (finding) Sex Ass[birth year] At [birth year] [facility] Brandi akers 00:00:00 00:00:00 Medical Center Smoking Status Start Date Stop Date Source Never smoker [facility] Medications Ordered Filled Start Stop Current Ordering Indication Dosage Frequency Signature Comments Components Source Medication Medication Date Date Medication? Clinician (SIG) Name Name Ibrutinib Ibrutinib Yes Kosta 1 tablet Common 4-11 Kamara Spirit 00:00: - [facility] Fluticasone Fluticasone Yes Kosta 1 spray in Common Propionate Propionate Kamara each Spi rit nostril [facility] ProAir ProAir Yes Kosta 2 puffs as Co mmon RespiClick RespiClick Kamara needed S pirit [facility] Vitamin Vitamin Yes Kosta not Common B-12 B-12 Kamara defined [facility]rum Centrum Yes Kosta not Common Adults Adults Kamara defined [facility] Allopurinol Allopurinol Yes Kosta 1 tablet Common Kamara [facility] Procedures This patient has no known procedures. Encounters Start End Encounter Admission Attending Care Care Encounter Source Date/Time Date/Time Type Type Clinicians Facility Department ID 2022-01-07 2022-01-07 Outpatient [facility] [id number] [facility] 14:41:00 14:41:00 Ashvin Ward [facility] 2018-10-23 2018-10-23 Outpatient [id number] Common 09:00:00 09:00:00 [facility] Joint - [facility] 2018-09-06 2018-09-06 Outpatient [facility] [id number] Common 16:13:00 16:13:[address] [facility] [address] Spir [address] Road Family - [facility] Family Medicine [facility] 2018-08-23 2018-08-23 Outpatient [place] [id number] Common 14:30:00 14:30:00 t [facility] Bone [facility] Spiri t and Joint Joint - [facility] 2018-08-22 2018-08-22 [id number] Common 15:00:00 15:00:00 t [facility] Bone and Spiri t and Joint Joint - [facility] Results Test Description Test Time Test Comments Results Result Sourc e Comments - XR CHEST 2 V 2022-01-07 00:00[facility] 1960 Sex: M FAX: Jordan Ledezma MD [phone] [place]: St: REG FAX: Ashvin Cintron MD [phone] Name: CARROL CHAMPAGNE [facility] : 1960 Age/S: 61/M [address] [place] [address] Bl Unit #: [id number] Loc: [place] [address] Phys: Ashvin Carter MD Acct: [id number] Dis Date: Status: REG CLI PHONE #: [phone] Exam Date: 01/07/2022 150 FAX #: [phone] Reason: CLL EXAMS: CPT CODE: [id number] XR CHEST 2 V 23171 PROCEDURE INFORMATION: Exam: XR Chest Exam date and time: 01/07/2022 2:51 PM Age: 61 years old Clinical indication: Pre-operative exam; Respiratory screening exam; Additional info: Cll TECHNIQUE: Imaging protocol: XR of the chest. Views: 2 views. PA and Lateral COMPARISON: DX XR CHEST 2 V 11/16/2016 2:44 PM FINDINGS: Lungs: There are normal lung volumes without consolidation or interstitial opacities. Pleural spaces: Unremarkable. No pleural effusion. No pneumothorax. Heart/Mediastinum: The heart size is normal. The pulmonary vasculature is normal. The mediastinal contour is normal. The trachea is midline. Bones/joints: No acute abnormality seen. IMPRESSION: No acute cardiopulmonary findings. at 1750 Reported and signed by: Festus Jones M.D. CC: Jordan Juarez MD; Ashvin Carter MD Technologist: RT Erin(Pollo) Trnscrd Date/Time/By: 01/07/2022 (1749) : By: Kobe Orig Print D/T: S: 01/07/2022 (1749) PAGE 1 Signed Report
--- NOTE | 2022-05-06 22:27 | RAD REPORT ---
EXAM DESCRIPTION: RAD - Chest Single View - 05/06/2022 10:19 pm CLINICAL HISTORY: DYSPNEA Chest pain. COMPARISON: Chest Pa And Lat (2 Views) dated 04/14/2022; Chest Single View dated 06/06/2021; Chest Sin gle View dated 01/05/2021; Chest Pa And Lat (2 Views) dated 12/15/2017 FINDINGS: Portable technique limits examination quality. The lungs are grossly clear. Trace left pleural effusion. The heart is upper limit of normal in size. No displaced fractures.
[2022-05-06 23:17] LABS: Absolute Lymphocytes (CBC) 0.9 K/uL (0.7-4.9); Hematocrit 48.6 % (39.6-49.0); Lymphocytes % 12.2 % (15.3-44.8); RBC Red Blood Cell Count 5.52 M/uL (4.33-5.43)
[2022-05-06 23:18] LABS: Protime INR 0.98
[2022-05-06 23:45] LABS: Albumin 4.1 g/dL (3.4-5.0); Bilirubin Direct 0.1 mg/dL (0-0.2); Bilirubin Total 0.5 mg/dL (0.2-1.0); Magnesium 2.1 mg/dL (1.8-2.4); Potassium 4.2 mmol/L (3.5-5.1); Troponin High Sensitivity 3.3 pg/mL (<58.9)
[2022-05-07] MEDS ORDERED: NA CHLORIDE 0.9% 1,000 ML ONE (00:10)
[2022-05-07] MEDS ORDERED: ONDANSETRON 4 MG/2 ML VIAL ONE ×2 (00:10→02:42)
[2022-05-07] MEDS ORDERED: MORPHINE 2 MG/ML SYR ONE ×2 (00:10→01:06)
--- NOTE | 2022-05-07 02:33 | ER ---
Nurse's Notes [facility] Name: Wiley Anne Age: 61 yrs Sex: Male : 1960 Arrival Date: 05/06/2022 Time: 21:51 Bed 4 Private MD: Diagnosis: Abdominal pain, Generalized-S/P LAP CHOLECYSTECTOMY;Dyspnea;Retention of urine, unspecified-600 CC Presentation: 05/06 21:54 Chief complaint: Had lap kinza by Dr. Hernandez today, c/o SOB and severe pain in hb abdomen. Coronavirus screen: At this time, the client does not indicate any symptoms associated with coronavirus-19. Ebola Screen: No symptoms or risks identified at this time. Risk Assessment: Do you want to hurt yourself or someone else? Patient reports no desire to harm self or others. Onset of symptoms was May 06, 2022. 21:54 Method Of Arrival: Wheelchair hb 21:54 Acuity: JASMIN 2 hb Historical: - Allergies: 21:55 Johnson (Vomiting); hb - PMHx: 21:55 CLL; LYMPHOMA; hb - Immunization history:: Adult Immunizations up to date. - Social history:: Smoking status: Patient denies any tobacco usage or history of. Screenin:00 Abuse screen: Denies threats or abuse. Nutritional screening: No deficits noted. jb4 Tuberculosis screening: No symptoms or risk factors identified. Fall Risk None identified. Assessment: 22:00 General: Appears in no apparent distress. uncomfortable, Behavior is calm, cooperative, jb4 appropriate for age. Pain: Complains of pain in chest and abdomen Pain does not radiate. Pain currently is 10 out of 10 on a pain scale. Neuro: Level of Consciousness is awake, alert, obeys commands, Oriented to person, place, time, situation. Cardiovascular: Patient's skin is warm and dry. Respiratory: Airway is patent Respiratory effort is even, unlabored, Respiratory pattern is regular, symmetrical, Breath sounds are clear bilaterally. GI: Abdomen is round non-distended, Bowel sounds present X 4 quads. Abd is soft X 4 quads Abdomen is tender to palpation X 4 quads. : No signs and/or symptoms were reported regarding the genitourinary system. EENT: No signs and/or symptoms were reported regarding the EENT system. Derm: Skin is intact, Skin is pink, warm \T\ dry. Musculoskeletal: Circulation, motion, and sensation intact. Range of motion: intact in all extremities. 23:00 Reassessment: Patient appears in no apparent distress at this time. Patient and/or jb4 family updated on plan of care and expected duration. Pain level reassessed. Patient is alert, oriented x 3, equal unlabored respirations, skin warm/dry/pink. 05/07 00:00 Reassessment: Patient appears in no apparent distress at this time. Patient and/or jb4 family updated on plan of care and expected duration. Pain level reassessed. Patient is alert, oriented x 3, equal unlabored respirations, skin warm/dry/pink. 01:00 Reassessment: Patient appears in no apparent distress at this time. Patient and/or jb4 family updated on plan of care and expected duration. Pain level reassessed. Patient is alert, oriented x 3, equal unlabored respirations, skin warm/dry/pink. 02:00 Reassessment: Patient appears in no apparent distress at this time. Patient and/or jb4 family updated on plan of care and expected duration. Pain level reassessed. Patient is alert, oriented x 3, equal unlabored respirations, skin warm/dry/pink. 03:00 Reassessment: Patient appears in no apparent distress at this time. Patient and/or jb4 family updated on plan of care and expected duration. Pain level reassessed. Patient is alert, oriented x 3, equal unlabored respirations, skin warm/dry/pink. 04:15 Reassessment: Patient appears in no apparent distress at this time. Patient and/or jb4 family updated on plan of care and expected duration. Pain level reassessed. Patient is alert, oriented x 3, equal unlabored respirations, skin warm/dry/pink. Pt retaining 606ml of Urine after voiding. Provider notified. See MAR for orders. Vital Signs: 05/06 21:54 BP 180 / 97; Pulse 74; Resp 20; Temp 98.2; Pulse Ox 95% on R/A; Weight 61.23 kg; Height hb 5 ft. 2 in. (157.48 cm); Pain 10/10; 23:48 BP 188 / 76; Pulse 72; Resp 16 S; Pulse Ox 97% on R/A; ha1 05/07 00:30 BP 196 / 89; Pulse 72; Resp 16 S; Pulse Ox 96% on R/A; ha1 02:00 BP 186 / 92; Pulse 65; Resp 17; Pulse Ox 97% on R/A; jb4 03:30 BP 171 / 88; Pulse 67; Resp 12; Pulse Ox 95% on R/A; jb4 05/06 21:54 Body Mass Index 24.69 (61.23 kg, 157.48 cm) hb ED Course: 05/06 21:51 Patient arrived in ED. ja2 21:55 Triage completed. hb 21:55 Arm band placed on. hb 22:00 Giovanny Miller MD is Attending Physician. bubba 22:21 XRAY Chest (1 view) In Process Unspecified. EDMS 22:21 Yoni Fairchild, MOSES is Primary Nurse. jb4 23:41 CT Chest For PE Angio In Process Unspecified. EDMS 23:41 CT Abd/Pelvis - IV Contrast Only In Process Unspecified. EDMS 05/07 02:31 Steffen Hernandez MD is Hospitalizing Provider. [facility] 04:34 No provider procedures requiring assistance completed. Patient admitted, IV remains in jb4 place. Administered Medications: 00:08 Drug: Zofran (Ondansetron) 4 mg Route: IVP; Site: right forearm; jb4 00:10 Drug: morphine 2 mg Route: IVP; Infused Over: 4 mins; Site: right forearm; jb4 00:21 Drug: NS 0.9% 1000 ml Route: IV; Rate: 1 bolus; Site: right forearm; jb4 01:06 Drug: morphine 2 mg Route: IVP; Infused Over: 4 mins; Site: right forearm; jb4 02:53 Drug: Pepcid (famotidine) 20 mg Route: IVP; Site: right forearm; jb4 02:55 Drug: Zofran (Ondansetron) 4 mg Route: IVP; Site: right forearm; jb4 02:57 Drug: Dilaudid (HYDROmorphone) 1 mg Route: IVP; Site: right forearm; jb4 02:59 Drug: Zosyn (piperacillin-tazobactam) 3.375 grams Route: IVPB; Infused Over: 60 mins; jb4 Site: right forearm; Medication: 04:34 VIS not applicable for this client. jb4 Outcome: 02:32 Decision to Hospitalize by Provider. bubba 04:35 Admitted to ER Hold. Please see [facility] for further documentation. jb4 04:35 Condition: stable 04:35 Discharge instructions given to patient, Instructed on the need for admit, Demonstrated understanding of instructions. 12:00 Patient left the ED. eb Signatures: Dispatcher [employer] EDMS Giovanny Miller MD MD cha Baxter, Heather, RN RN Yoni Fairchild RN RN jb4 Nuvia Hernández Jessica ja2 Ayala, Heidy RN RN ha1 Corrections: (The following items were deleted from the chart) 05/06 21:55 21:55 Allergies: Zofran; [facility] 05/07 01:06 00:08 Zofran (Ondansetron) 4 mg IVP in right antecubital jb4 jb4 01:06 00:10 morphine 2 mg IVP in right antecubital over 4 mins jb4 jb4 01:06 00:21 NS 0.9% 1000 ml IV at 1 bolus in right antecubital jb4 jb4 04:34 05/06 22:00 Respiratory: Airway is patent Respiratory effort is even, unlabored, jb4 Respiratory pattern is regular, symmetrical, jb4
--- NOTE | 2022-05-07 02:33 | EDPHYS ---
Physician Documentation [facility] Name: Wiley Anne Age: 61 yrs Sex: Male : 1960 Arrival Date: 05/06/2022 Time: 21:51 Bed 4 Private MD: ED Physician Giovanny Miller HPI: 05/07 02:21 This 61 yrs old Male presents to ER via Wheelchair with complaints of bubba Breathing Difficulty. 02:21 The patient has shortness of breath at rest, with light activity. Onset: The bubba symptoms/episode began/occurred just prior to arrival, this morning. Duration: The symptoms are continuous, and are steadily getting worse. The patient's shortness of breath is aggravated by nothing, coughing, eating, exertion, light activity, talking, walking, is alleviated by application of supplemental oxygen. Associated signs and symptoms: Pertinent positives: nausea. Severity of symptoms: At their worst the symptoms were mild moderate in the emergency department the symptoms have improved mildly. The patient has not experienced similar symptoms in the past. Historical: - Allergies: 05/06 21:55 [place] (Vomiting); hb - PMHx: 21:55 CLL; LYMPHOMA; hb - Immunization history:: Adult Immunizations up to date. - Social history:: Smoking status: Patient denies any tobacco usage or history of. ROS: 05/07 02:22 Constitutional: Negative for fever, chills, and weight loss, Eyes: Negative for injury, bubba pain, redness, and discharge, ENT: Negative for injury, pain, and discharge, Neck: Negative for injury, pain, and swelling, Cardiovascular: Negative for chest pain, palpitations, and edema, Respiratory: Negative for shortness of breath, cough, wheezing, and pleuritic chest pain, Back: Negative for injury and pain, : Negative for injury, bleeding, discharge, and swelling, MS/Extremity: Negative for injury and deformity, Skin: Negative for injury, rash, and discoloration, Neuro: Negative for headache, weakness, numbness, tingling, and seizure, Psych: Negative for depression, anxiety, suicide ideation, homicidal ideation, and hallucinations, Allergy/Immunology: Negative for hives, rash, and allergies, Endocrine: Negative for neck swelling, polydipsia, polyuria, polyphagia, and marked weight changes, Hematologic/Lymphatic: Negative for swollen nodes, abnormal bleeding, and unusual bruising. Abdomen/GI: Positive for abdominal pain, nausea and vomiting, of the right upper quadrant, left upper quadrant, right lower quadrant and left lower quadrant. Exam: 02:22 Constitutional: This is a well developed, well nourished patient who is awake, alert, bubba and in no acute distress. Head/Face: Normocephalic, atraumatic. Eyes: Pupils equal round and reactive to light, extra-ocular motions intact. Lids and lashes normal. Conjunctiva and sclera are non-icteric and not injected. Cornea within normal limits. Periorbital areas with no swelling, redness, or edema. ENT: Nares patent. No nasal discharge, no septal abnormalities noted. Tympanic membranes are normal and external auditory canals are clear. Oropharynx with no redness, swelling, or masses, exudates, or evidence of obstruction, uvula midline. Mucous membranes moist. Neck: Trachea midline, no thyromegaly or masses palpated, and no cervical lymphadenopathy. Supple, full range of motion without nuchal rigidity, or vertebral point tenderness. No Meningismus. Chest/axilla: Normal chest wall appearance and motion. Nontender with no deformity. No lesions are appreciated. Cardiovascular: Regular rate and rhythm with a normal S1 and S2. No gallops, murmurs, or rubs. Normal PMI, no JVD. No pulse deficits. Respiratory: Lungs have equal breath sounds bilaterally, clear to auscultation and percussion. No rales, rhonchi or wheezes noted. No increased work of breathing, no retractions or nasal flaring. Back: No spinal tenderness. No costovertebral tenderness. Full range of motion. Male : Normal genitalia with no discharge or lesions. Skin: Warm, dry with normal turgor. Normal color with no rashes, no lesions, and no evidence of cellulitis. MS/ Extremity: Pulses equal, no cyanosis. Neurovascular intact. Full, normal range of motion. Neuro: Awake and alert, GCS 15, oriented to person, place, time, and situation. Cranial nerves II-XII grossly intact. Motor strength 5/5 in all extremities. Sensory grossly intact. Cerebellar exam normal. Normal gait. Psych: Awake, alert, with orientation to person, place and time. Behavior, mood, and affect are within normal limits. 02:22 ECG was reviewed by the Attending Physician. 02:22 Abdomen/GI: Inspection: abdomen appears normal, Bowel sounds: normal, Palpation: mild abdominal tenderness, in the right upper quadrant, left upper quadrant, right lower quadrant and left lower quadrant. Vital Signs: 05/06 21:54 BP 180 / 97; Pulse 74; Resp 20; Temp 98.2; Pulse Ox 95% on R/A; Weight 61.23 kg; Height hb 5 ft. 2 in. (157.48 cm); Pain 10/10; 23:48 BP 188 / 76; Pulse 72; Resp 16 S; Pulse Ox 97% on R/A; ha1 05/07 00:30 BP 196 / 89; Pulse 72; Resp 16 S; Pulse Ox 96% on R/A; ha1 02:00 BP 186 / 92; Pulse 65; Resp 17; Pulse Ox 97% on R/A; jb4 03:30 BP 171 / 88; Pulse 67; Resp 12; Pulse Ox 95% on R/A; jb4 05/06 21:54 Body Mass Index 24.69 (61.23 kg, 157.48 cm) hb MDM: 05/06 22:00 Patient medically screened. bubba 05/07 02:24 Differential diagnosis: Anemia CHF exacerbation, Chronic Obstructive Pulmonary Disease bubba pneumonia, pulmonary edema, Pulmonary Embolism reactive airway disease, Sepsis Unstable Angina bowel obstruction, coronary artery disease, diverticulitis, gastritis, GI Bleed, pancreatitis, Peptic Ulcer Disease, Pyelonephritis. Antibiotic administration: ZOSYN PER KOVACEV. The patient's Wells Deep Vein Thrombosis Score was calculated as follows: Imm/Surg in last 4 wks (1.5 Pts) Total Score: 0-2 Pts- Low Risk. The patient's pulmonary embolism risk score was calculated as follows: Total Score: 0-2 points. This patient was found to be at low risk for a pulmonary embolism by using the Well's assessment criteria. Immunization status: Influenza vaccine: Data reviewed: vital signs, nurses notes, lab test result(s), EKG, radiologic studies, CT scan, plain films. 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 Test interpretation: by ED physician or midlevel provider: ECG, plain radiologic studies. Post IV fluid administration reassessment for Sepsis: Client prescribed 30 mL/kg IVF. Counseling: I had a detailed discussion with the patient and/or guardian regarding: the historical points, exam findings, and any diagnostic results supporting the discharge/admit diagnosis, the presence of at least one elevated blood pressure reading (>120/80) during this emergency department visit, lab results, radiology results, the need for further work-up and treatment in the hospital. 05/06 22:06 Order name: Basic Metabolic Panel; Complete Time: 02:12 [facility] 05/06 22:06 Order name: CBC with Diff; Complete Time: 23:29 [facility] 05/06 22:06 Order name: LFT's; Complete Time: 02:12 [facility] 05/06 22:06 Order name: Magnesium; Complete Time: 02:12 [facility] 05/06 22:06 Order name: NT PRO-BNP; Complete Time: 02:12 [facility] 05/06 22:06 Order name: PT-INR; Complete Time: 23:29 [facility] 05/06 22:06 Order name: Troponin HS; Complete Time: 02:12 [facility] 05/06 22:06 Order name: XRAY Chest (1 view); Complete Time: 23:29 [facility] 05/06 22:06 Order name: CT Chest For PE Angio [facility] 05/06 22:06 Order name: CT Abd/Pelvis - IV Contrast Only [facility] 05/06 22:06 Order name: Lipase; Complete Time: 02:12 [facility] 05/06 23:49 Order name: CREATININE WHOLE BLOOD; Complete Time: 02:12 [facility] 05/07 03:02 Order name: SARS RAPID jb4 05/07 04:03 Order name: SARS-COV-2 Antigen Rapid [facility] 05/06 22:06 Order name: EKG; Complete Time: 22:07 [facility] 05/06 22:06 Order name: Cardiac monitoring; Complete Time: 00:21 [facility] 05/06 22:06 Order name: EKG - Nurse/Tech; Complete Time: 00:21 [facility] 05/06 22:06 Order name: IV Saline Lock; Complete Time: 23:27 [facility] 05/06 22:06 Order name: Labs collected and sent; Complete Time: 23:27 [facility] 05/06 22:06 Order name: O2 Per Protocol; Complete Time: 23:27 [facility] 05/06 22:06 Order name: O2 Sat Monitoring; Complete Time: 23:27 [facility] 05/07 04:26 Order name: Brambila; Complete Time: 04:28 bubba EC: Rate is 67 beats/min. Rhythm is regular. QRS [place] is Normal. CO interval is normal. QRS bubba interval is normal. QT interval is normal. No Q waves. T waves are Normal. No ST changes noted. Clinical impression: NSR w/ Non-specific ST/T Changes and No evidence of ischemia. Interpreted by me. Reviewed by me. Administered Medications: 00:08 Drug: Zofran (Ondansetron) 4 mg Route: IVP; Site: right forearm; jb4 00:10 Drug: morphine 2 mg Route: IVP; Infused Over: 4 mins; Site: right forearm; jb4 00:21 Drug: NS 0.9% 1000 ml Route: IV; Rate: 1 bolus; Site: right forearm; jb4 01:06 Drug: morphine 2 mg Route: IVP; Infused Over: 4 mins; Site: right forearm; jb4 02:53 Drug: Pepcid (famotidine) 20 mg Route: IVP; Site: right forearm; jb4 02:55 Drug: Zofran (Ondansetron) 4 mg Route: IVP; Site: right forearm; jb4 02:57 Drug: Dilaudid (HYDROmorphone) 1 mg Route: IVP; Site: right forearm; jb4 02:59 Drug: Zosyn (piperacillin-tazobactam) 3.375 grams Route: IVPB; Infused Over: 60 mins; jb4 Site: right forearm; Disposition Summary: 05/07/22 02:32 Hospitalization Ordered Hospitalization Status: Observation bubba Provider: Steffen Hernandez cha Condition: Stable bubba Problem: new bubba Symptoms: have improved bubba Bed/Room Type: Standard bubba Location: [facility] ER HOLD(05/07/22 03:54) Room Assignment: ERHOLD-(05/07/22 03:54) cg Diagnosis - Abdominal pain, Generalized - S/P LAP CHOLECYSTECTOMY bubba - Dyspnea bubba - Retention of urine, unspecified - 600 CC bubba Forms: - Medication Reconciliation Form bubba - SBAR form bubba Signatures: Dispatcher [employer] EDGiovanny Lucio MD MD cha Garcia, Cindy, RN RN Kiersten Manzanares RN RN hb Bryson, James, RN RN jb4 Corrections: (The following items were deleted from the chart) 05/06 21:55 21:55 Allergies: Zofran; hb hb 05/07 03:54 02:32 Telemetry/MedSurg (observation) bubba cg 03:54 02:32 bubba
[2022-05-07] MEDS ORDERED: FAMOTIDINE 20 MG/2 ML VIAL IV ONE ×2 (02:42→08:17)
[2022-05-07] MEDS ORDERED: PIPERACIL/TAZO 3.375 GM VIAL IV ONE ×2 (02:42→08:18)
[2022-05-07] MEDS ORDERED: HYDROMORPHONE HCL 1 MG/ML INJ ONE ×2 (02:42→08:20)
[2022-05-07] MEDS ORDERED: NA CHLORIDE 0.9% 100 ML ONE ×2 (02:43→08:17)
[2022-05-07 04:03] LABS: SARS-CoV-2 Antigen Rapid Res Negative (Negative)
[2022-05-07 04:39] VITALS: BMI 24.7
[2022-05-07] MEDS ORDERED: HYDROMORPHONE HCL 1 MG/ML INJ IV PRN (05:25)
[2022-05-07] MEDS ORDERED: NA CHLORIDE 0.9% 1,000 ML IV SCH (05:25)
[2022-05-07] MEDS ORDERED: D5 0.45 NS 1,000 ML IV SCH (05:25)
[2022-05-07] MEDS ORDERED: PROMETHAZINE INJ 25 MG/ML AMP IV PRN (05:25)
[2022-05-07] MEDS ORDERED: ACETAMINOPHEN 325 MG TABLET PO PRN (05:25)
--- NOTE | 2022-05-07 07:19 | EKG ---
Test Date: 2022-05-06 Test Time: 23:44:17 [facility] D[facility] Room: [facility] MEASUREMENT RESULTS: Intervals: Rate: 67 PA: 148 QRSD: 82 QT: 402 QTc: 424 [place]: P: 80 PA: 148 QRS: 66 T: 69 INTERPRETIVE STATEMENTS: Normal sinus rhythm Minimal voltage criteria for LVH, may be normal variant Borderline ECG Compared to ECG 05/05/2022 12:33:14 Left ventricular hypertrophy now present Sinus bradycardia no longer present Electronically Signed On 05-07-22 07:18:11 CDT by Fransisco Chong
[2022-05-07] MEDS ORDERED: PROMETHAZINE INJ 25 MG/ML AMP ONE (08:19)
[2022-05-07] MEDS ORDERED: PIPER TAZO 3.375 GM in NA CHLORIDE 0.9% 100 ML IV SCH (09:00)
[2022-05-07] MEDS ORDERED: FAMOTIDINE 20 MG/2 ML VIAL IV SCH (09:00)
[2022-05-07 12:09] VITALS: TEMP 98.2
[2022-05-07 12:18] VITALS: BP 171/88; O2SAT 95
--- NOTE | 2022-05-07 13:55 | RAD REPORT ---
EXAM DESCRIPTION: CT - Chest For Pe Angio - 05/07/2022 4:13 am CLINICAL HISTORY: Abdominal pain, acute, nonlocalized. Dyspnea. COMPARISON: None. TECHNIQUE: CTA of the chest was performed following intravenous administration of iodinated contrast . Axial soft tissue and lung window, and coronal and sagittal soft tissue window reconstructions were created and sent to PACS. 3D postprocessing was performed on an independent workstation, with images sent to PACS for subsequen t review. This exam was performed according to our departmental dose-optimization program, which includes autom ated exposure control, adjustment of the mA and/or kV according to patient size and/or use of iterati ve reconstruction technique. FINDINGS: Vascular: Mild streak artifact due to adjacent contrast in the SVC. No CT evidence of acut e pulmonary thromboembolism, within this mild limitation. No evidence of aortic aneurysm or dissectio n. Lungs and pleura: No pulmonary consolidation. Mild dependent atelectasis in the lower lobes and lingu la. No pleural effusion. No pneumothorax. Incidentally noted azygous fissure containing the azygous v ein. Mediastinum and neck: No mediastinal lymphadenopathy by CT size criteria. Unremarkable appearance of the thyroid gland. Cardiac: No cardiomegaly or pericardial effusion. Hepatobiliary: No concerning hepatic lesion identified. The portal veins are patent. The gallbladder is surgically absent. Suspected small amount of postsurgical fluid in the gallbladder fossa. No patho logic biliary ductal dilatation. Pancreas: Unremarkable. Spleen: Enlarged, measuring 15.3 cm in length. Gastrointestinal: No evidence of bowel obstruction or perienteric inflammation. The appendix is lenard l. Mild left colonic diverticulosis. Small amount of fecal material throughout the colon. Adrenals: No abnormality identified in either adrenal gland. Renal: No concerning parenchymal abnormality in either kidney. No hydronephrosis or urolithiasis. Bladder/Reproductive: Unremarkable appearance of the urinary bladder by CT technique. Mild prostatome blu. Vascular/Lymphatics: Mildly prominent left retroperitoneal lymph nodes. Abdominal aorta is normal in caliber. Musculoskeletal: No concerning osseous lesion identified. Mild subcutaneous emphysema and fat strandi ng in the anterior abdominal wall. Fluid / peritoneum: Scant abdominopelvic free fluid. Trace free intraperitoneal air. IMPRESSION: 1. No CTA evidence of acute pulmonary thromboembolism. 2. Expected recent postsurgical changes, likely due to recent cholecystectomy. 3. Mildly prominent retroperitoneal lymph nodes. 4. Splenomegaly. Electronically signed by: Miladys Thornton MD 05/07/2022 12:05 AM CDT Due to temporary technical issues with the PACS/Fluency reporting system, reports are being signed by the in house radiologists without review as a courtesy to insure prompt reporting. The interpreting radiologist is fully responsible for the content of the report.
--- NOTE | 2022-05-07 14:57 | RAD REPORT ---
EXAM DESCRIPTION: CT - Abdomen Pelvis W Contrast - 05/07/2022 4:12 am CLINICAL HISTORY: Abdominal pain, acute, nonlocalized. Dyspnea. COMPARISON: None. TECHNIQUE: CTA of the chest was performed following intravenous administration of iodinated contrast . Axial soft tissue and lung window, and coronal and sagittal soft tissue window reconstructions were created and sent to PACS. 3D postprocessing was performed on an independent workstation, with images sent to PACS for subsequen t review. This exam was performed according to our departmental dose-optimization program, which includes autom ated exposure control, adjustment of the mA and/or kV according to patient size and/or use of iterati ve reconstruction technique. FINDINGS: Vascular: Mild streak artifact due to adjacent contrast in the SVC. No CT evidence of acut e pulmonary thromboembolism, within this mild limitation. No evidence of aortic aneurysm or dissectio n. Lungs and pleura: No pulmonary consolidation. Mild dependent atelectasis in the lower lobes and lingu la. No pleural effusion. No pneumothorax. Incidentally noted azygous fissure containing the azygous v ein. Mediastinum and neck: No mediastinal lymphadenopathy by CT size criteria. Unremarkable appearance of the thyroid gland. Cardiac: No cardiomegaly or pericardial effusion. Hepatobiliary: No concerning hepatic lesion identified. The portal veins are patent. The gallbladder is surgically absent. Suspected small amount of postsurgical fluid in the gallbladder fossa. No patho logic biliary ductal dilatation. Pancreas: Unremarkable. Spleen: Enlarged, measuring 15.3 cm in length. Gastrointestinal: No evidence of bowel obstruction or perienteric inflammation. The appendix is lenard l. Mild left colonic diverticulosis. Small amount of fecal material throughout the colon. Adrenals: No abnormality identified in either adrenal gland. Renal: No concerning parenchymal abnormality in either kidney. No hydronephrosis or urolithiasis. Bladder/Reproductive: Unremarkable appearance of the urinary bladder by CT technique. Mild prostatome blu. Vascular/Lymphatics: Mildly prominent left retroperitoneal lymph nodes. Abdominal aorta is normal in caliber. Musculoskeletal: No concerning osseous lesion identified. Mild subcutaneous emphysema and fat strandi ng in the anterior abdominal wall. Fluid / peritoneum: Scant abdominopelvic free fluid. Trace free intraperitoneal air. IMPRESSION: 1. No CTA evidence of acute pulmonary thromboembolism. 2. Expected recent postsurgical changes, likely due to recent cholecystectomy. 3. Mildly prominent retroperitoneal lymph nodes. 4. Splenomegaly. Electronically signed by: Miladys Thornton MD 05/07/2022 12:05 AM CDT Due to temporary technical issues with the PACS/Fluency reporting system, reports are being signed by the in house radiologists without review as a courtesy to insure prompt reporting. The interpreting radiologist is fully responsible for the content of the report.
--- NOTE | 2022-05-07 21:40 | HP ---
Date of Admission: 05/07/2022 Brief History Of Present Illness: Patient is a 61-year-old male who had a laparoscopic cholecystecto my earlier in the day, which was fairly uneventful. He ultimately was discharged home. He came back with severe lower abdominal pain. He had a Brambila catheter placed in the ER and had significant symp tomatic improvement and resolution of the vast majority of his abdominal pain. He only had mild abdo bubba pain near his incisions from his laparoscopic cholecystectomy, near the belly button, as well a s, the other trocar sites up in the right upper quadrant and upper abdomen. No other complaints at t his time. Feels well, tolerating clear liquid diet, and pain is well controlled. Past Medical History: CLL lymphoma. Allergies: NONE LISTED. Physical Examination: At the time of my examination: General: He is awake, alert, and oriented. Psychiatric: He is appropriate and conversive. HEENT: Normocephalic. Sclerae are anicteric. Mucous membranes are moist. Oropharynx clear. Neck: Supple without JVD. Chest: Normal expansion and excursion. Cardiovascular: Regular rate and rhythm. Pulmonary: Clear to auscultation bilaterally. Abdomen: Soft with mild appropriate tenderness to palpation. No rebound. No guarding. No peritoni tis. Incisions are well sealed and dry. Vital Signs: At the time of my examination were a blood pressure of 159/95, pulse 64, respiratory ra te was 17, temperature 98.1, SpO2 99% on room air. Laboratory Data: Revealed a white blood cell count of 7.5, hemoglobin is 16.5, hematocrit of 48.6, p latelet count was 107, neutrophils are 80%. PT 10.9, INR 0.98. His sodium 137, potassium 4.2, chlor annelise 107, carbon dioxide is 23, BUN 18, creatinine 1.16, glucose 117, magnesium 2.1, total bilirubin 0 .5, direct component was 0.1. AST 80, ALT 131, alkaline phosphatase is 125, lipase is 73. He had im aging performed, which included a CT of the abdomen and pelvis, as well as, CT thoracic/CTA, that is CT angiogram, in the ER, officially read as eventually no CT evidence of acute pulmonary thromboembol ism. Expected recent postsurgical changes likely due to recent cholecystectomy. Mildly prominent re troperitoneal lymph nodes and splenomegaly. Assessment And Plan: This is a 61-year-old male who presents with the urinary retention, relieved wi th Brambila catheter and some mild postoperative pain. We will admit him simply for observation over e course of the evening and likely discharge in a.m. after he has Brambila removed if he is able to void adequately and his pain is well controlled. I have explained the risks, benefits, and alternatives with the above-stated plan. Patient agrees to proceed as indicated. DOREEN Voice ID: [id number]
== END 2022-05-07 11:56 | disposition home or self-care (01) | DRG 948 ==
LOC: ER 21:48 → ERHOLD 05-07 02:34
PROVIDERS: ADMIT Surgery; ATTEND Surgery
DX: G89.18 Other acute postprocedural pain (principal); R33.9 Retention of urine, unspecified; Z90.49 Acquired absence of other specified parts of digestive tract; Z79.899 Other long term (current) drug therapy; Z20.822 Contact with and (suspected) exposure to COVID-19
CPT/HCPCS: 36415; 71045; 71275; 74177; 80048; 80076; 82565; 83690; 83735; 83880; 84484; 85025; 85610; 87811; 93005; 96374; 96375; 99285; J1170; J2270; J2405; J2543; J2550; J7030; Q9967

== ENCOUNTER 2022-05-08 05:37 | Inpatient (IN) | payer OTHER ==
--- OUTSIDE RECORDS SUMMARY | 2022-05-08 05:40 | XMS REPORT | Continuity of Care Document ---
:1960 Author Organization [facility] t Address [address] [place] [address] Care Team Providers Name Role Phone Ashvin Carter Attending Clinician Unavailable Jordan Juarez Admitting Clinician Unavailable Payers Payer Name Policy Type Policy Number Effective Date Expiration Date S ource Problems Condition Condition Condition Status Onset Resolution Last Treating Co mments Source Name Details Category Date Date Treatment Clinician Date Pneumonia Pneumonia Disease Active 2015-[address] [facility] [address] [facility] lobes due lobes due 00 Cent er to to infectious infectious organism organism Hyponatrem Hyponatrem Disease Active 2015-[address] [facility] Diffuse Diffuse [...] [facility] [place] Thrombocyt Thrombocyt Disease Active 2015-[address] openia openia 10-06 [facility] 00:00: Medical 00 [place] Shortness Shortness Disease Active 2015-[address] of breath of breath 10-06 [facility] 00:00: Medical 00 Center Other Other Problem Active Common chronic chronic Spirit pain pain - [facility] Allergic Allergic Problem Active Commo n rhinitis, rhinitis, Spir it seasonal seasonal - [facility] Essential Essential Problem Active Com mon (primary) (primary) Spir it hypertensi hypertensi - [facility] on [facility] Paresthesi Paresthesi Problem Active C ommon a of skin a of skin Spir it - [facility] Scratched Scratched Problem Active Com mon by cat, by cat, Spirit initial initial - [facility] encounter encounter [facility] Asthmatic Asthmatic Problem Active Com mon bronchitis bronchitis Sp epifanio - [facility] CLL CLL Problem Active Common (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Spirit lymphocyti lymphocyti - [facility] leukemia) leukemia) [facility] Tenosynovi Tenosynovi Diagnosis Active Common tis of tis of Spirit left ankle left ankle - [facility] Pain in Pain in Diagnosis Active Commo n left ankle left ankle Sp epifanio and joints and joints - [facility] of left of left St foot foot [facility] Sprain of Sprain of Diagnosis Active C ommon other other Spirit ligament ligament - [facility] of left of left St ankle, ankle, [facility] sequela sequela [facility] Allergies, Adverse Reactions, Alerts Allergy Allergy Status Severity Reaction(s) Onset Inactive Treating Comm ents Source Name Type Date Date Clinician No Known DA Active [facility] Allergie 10-05 Clear s 00:00: Rodríguez [address] [place] [address] NO KNOWN Allergy Active [facility] Ondanset Adverse Active Info Not Commo n becca Reaction Available Spiri t - [facility] Lisinopr Adverse Active headache, Comm on il Reaction numbness/tin Sp epifanio gling to R - [facility] arm [facility] Hydrocod Adverse Active Info Not Commo n one-Acet Reaction Available Spi rit aminophe - [facility] n [facility] Social History Social Habit Start Date Stop Date Quantity Comments Source Tobacco use and 2016-08-05 2016-08-05 Never used [facility] exposure 00:00:00 00:00:00 Medical Center Alcohol intake 2016-08-05 2016-08-05 [facility] non-drinker of Medical Ce nter alcohol (finding) Sex Ass[birth year] At [birth year] [facility] Brandi akers 00:00:00 00:00:00 [facility] Center Smoking Status Start Date Stop Date Source Never smoker [facility] Medications Ordered Filled Start Stop Current Ordering Indication Dosage Frequency Signature Comments Components Source Medication Medication Date Date Medication? Clinician (SIG) Name Name Ibrutinib Ibrutinib Yes Kosta 1 tablet Common 4-11 Kamara Spirit 00:00: - [facility] 00 [facility] Fluticasone Fluticasone Yes Kosta 1 spray in Common Propionate Propionate Kamara each Spi rit nostril [facility] ProAir ProAir Yes Kosta 2 puffs as Co mmon RespiClick RespiClick Kamara needed S pirit [facility] Vitamin Vitamin Yes [place] not Common B-12 B-12 Kamara defined [facility] Centrum Centrum Yes [place]osta not Common Adults Adults Kamara defined [facility] Allopurinol Allopurinol Yes Kosta 1 tablet Common Kamara [facility] Procedures This patient has no known procedures. Encounters Start End Encounter Admission Attending Care Care Encounter Source Date/Time Date/Time Type Type Clinicians Facility Department ID 2022-01-07 2022-01-07 [id number] 14:41:00 14:41:00 Ashvin Ward [facility] 2018-10-23 2018-10-23 Outpatient [facility] [id number] Common 09:00:00 09:00:00 [facility] Joint - [facility] Clinic [facility] 2018-09-06 2018-09-06 Outpatient [facility] [place] [id number] Common 16:13:00 16:13:00 t [facility] Road Spir it Road Family - [facility] Family Medicine [facility] 2018-08-23 2018-08-23 Outpatient [facility] [place] [id number] Common 14:30:00 14:30:00 t [facility] Bone and Spiri t and Joint Joint - [facility] 2018-08-22 2018-08-22 [facility]patient [id number] Common 15:00:00 15:00:00 t Bone Bone and Spiri t and Joint Joint - [facility] Results Test Description Test Time Test Comments Results Result Sourc e Comments - XR CHEST 2 V 2022-01-07 00:00:00 [facility] : 1960 Sex: M FAX: Jordan Ledezma MD [phone] [place]: St: REG FAX: Ashvin Cintron MD [phone] Name: CARROL CHAMPAGNE [facility] : 1960 Age/S: 61/M [address] [place] [address] Bl Unit #: [id number] Loc: [place] [address] Phys: Ashvin Carter MD Acct: [id number] Dis Date: Status: REG CLI PHONE #: [phone] Exam Date: 01/07/2022 1509 FAX #: [phone] Reason: CLL EXAMS: CPT CODE: [id number] XR CHEST 2 V 53445 PROCEDURE INFORMATION: Exam: XR Chest Exam date [...]
[2022-05-08 06:34] LABS: Protime INR 1.06
[2022-05-08] MEDS ORDERED: HYDROMORPHONE HCL 1 MG/ML INJ ONE ×3 (06:34→16:27)
[2022-05-08] MEDS ORDERED: ONDANSETRON 4 MG/2 ML VIAL ONE ×3 (06:34→18:58)
[2022-05-08] MEDS ORDERED: NA CHLORIDE 0.9% 1,000 ML ONE (06:35)
[2022-05-08] MEDS ORDERED: FAMOTIDINE 20 MG/2 ML VIAL IV ONE (06:35)
[2022-05-08 06:37] LABS: Absolute Lymphocytes (CBC) 1.3 K/uL (0.7-4.9); Hematocrit 52.6 % (39.6-49.0); Lymphocytes % 17.2 % (15.3-44.8); MCV 86.9 fL (80-100); MPV 7.9 fL (7.6-11.3); RBC Red Blood Cell Count 6.05 M/uL (4.33-5.43)
[2022-05-08 06:46] LABS: SARS-CoV-2 Antigen Rapid Res Negative (Negative)
[2022-05-08 06:49] LABS: Albumin 4.2 g/dL (3.4-5.0); Bilirubin Direct 0.3 mg/dL (0-0.2); Magnesium 2.2 mg/dL (1.8-2.4); Protein, Total 7.8 g/dL (6.4-8.2); Troponin High Sensitivity 14.2 pg/mL (<58.9)
--- NOTE | 2022-05-08 06:55 | ER ---
Nurse's Notes [facility] Name: Wiley Anne Age: 61 yrs Sex: Male : 1960 Arrival Date: 05/08/2022 Time: 05:40 Bed 15 Private MD: Diagnosis: Other acute postprocedural pain Presentation: 05/08 05:43 Chief complaint: Spouse and/or significant other states: "He had gallbladder surgery as6 and he is having severe pain". Coronavirus screen: At this time, the client does not indicate any symptoms associated with coronavirus-19. Ebola Screen: No symptoms or risks identified at this time. Initial Sepsis Screen: Does the patient meet any 2 criteria? No. Patient's initial sepsis screen is negative. Does the patient have a suspected source of infection? No. Patient's initial sepsis screen is negative. Risk Assessment: Do you want to hurt yourself or someone else? Patient reports no desire to harm self or others. Onset of symptoms was May 06, 2022. 05:43 Method Of Arrival: Wheelchair as6 05:43 Acuity: JASMIN 2 as6 Historical: - Allergies: 05:47 No Known Allergies; as6 - Home Meds: 05:47 Imbruvica 140 mg Oral cap 3 caps once daily [Active]; montelukast 5 mg Oral chew 2 tabs as6 once daily [Active]; Ventolin Rotahaler/Rotacaps Inhl daily [Active]; - PMHx: 05:47 CLL; LYMPHOMA; as6 - PSHx: 05:47 Cholecystectomy; as6 - Immunization history:: Client reports having NOT received the Covid vaccine. - Social history:: Smoking status: Patient denies any tobacco usage or history of. - Family history:: not pertinent. Screenin:00 Abuse screen: Denies threats or abuse. Nutritional screening: No deficits noted. jb4 Tuberculosis screening: No symptoms or risk factors identified. Fall Risk None identified. Assessment: 06:00 General: Appears in no apparent distress. comfortable, Behavior is calm, cooperative, jb4 appropriate for age. Pain: Complains of pain in abdomen Pain does not radiate. Pain currently is 10 out of 10 on a pain scale. Neuro: Level of Consciousness is awake, alert, obeys commands, Oriented to person, place, time, situation. Cardiovascular: Patient's skin is warm and dry. Respiratory: Airway is patent Respiratory effort is even, unlabored, Respiratory pattern is regular, symmetrical. GI: Abdomen is round non-distended, Abd is soft X 4 quads Abdomen is tender to palpation X 4 quads. : No signs and/or symptoms were reported regarding the genitourinary system. EENT: No signs and/or symptoms were reported regarding the EENT system. Derm: Skin is intact, Skin is pink, warm \\T\\ dry. 07:51 Reassessment: charting continued in [facility] . em6 20:58 Reassessment: attempted report. nurse with another pt at this time. ja4 Vital Signs: 05:43 BP 202 / 126; Pulse 87; Resp 18 S; Temp 98.4(O); Pulse Ox 94% on R/A; Weight 61.23 kg as6 (R); Height 5 ft. 2 in. (157.48 cm) (R); Pain 10/10; 20:55 BP 152 / 97; Pulse 95; Resp 17; Pulse Ox 95% ; Pain 6/10; ja4 05:43 Body Mass Index 24.69 (61.23 kg, 157.48 cm) as6 ED Course: 05:40 Patient arrived in ED. bp1 05:47 Triage completed. as6 05:48 Arm band placed on. as6 05:54 Yoni Fairchild, RN is Primary Nurse. jb4 05:58 Giovanny Miller MD is Attending Physician. bubba 06:00 Patient has correct armband on for positive identification. Bed in low position. Call jb4 light in reach. Side rails up X 1. Client placed on continuous cardiac and pulse oximetry monitoring. NIBP monitoring applied. 06:05 Initial lab(s) drawn, by md. Inserted saline lock: 18 gauge in right forearm, using jb4 aseptic technique. Blood collected. 06:48 Jordan Juarez MD is Hospitalizing Provider. bubba 07:09 XRAY Chest (1 view) In Process Unspecified. EDMS 07:49 No provider procedures requiring assistance completed. Patient admitted, IV remains in em6 place. 19:44 Giovanny Miller MD is Hospitalizing Provider. kl Administered Medications: 06:40 Drug: NS 0.9% 1000 ml Route: IV; Rate: 125 ml/hr; Site: right forearm; jb4 06:40 Drug: Zofran (Ondansetron) 4 mg Route: IVP; Site: right forearm; jb4 07:00 Follow up: Response: No adverse reaction jd3 06:42 Drug: Pepcid (famotidine) 20 mg Route: IVP; Site: right forearm; jb4 07:00 Follow up: Response: No adverse reaction jd3 06:44 Drug: Dilaudid (HYDROmorphone) 1 mg Route: IVP; Site: right forearm; jb4 07:00 Follow up: Response: No adverse reaction; RASS: Alert and Calm (0) jd3 07:48 Drug: Dilaudid (HYDROmorphone) 1 mg Route: IVP; Site: right wrist; em6 07:48 Drug: Zosyn (piperacillin-tazobactam) 3.375 grams Route: IVPB; Infused Over: 60 mins; em6 Site: right wrist; Medication: 07:49 VIS not applicable for this client. em6 Outcome: 06:54 Decision to Hospitalize by Provider. [facility] 07:50 Admitted to ER Hold. Please see [facility] for further documentation. em6 07:50 Condition: stable 07:50 Instructed on the need for admit. em6 19:46 Decision to Hospitalize by Provider. kl 21:41 Patient left the ED. lila Signatures: Dispatcher [employer] EDMS Wendie Jimenes, Giovanny Galeano RN, MD MD cha Bryson, James RN RN Aiden Mustafa RN RN jd3 Paniauga, Brittany bp1 Slawson, Ashby, RN RN as6 Martinez, Erika, RN RN em6 Samuel Beck RN RN ja4
--- NOTE | 2022-05-08 06:55 | EDPHYS ---
Physician Documentation [facility] Name: Wiley Anne Age: 61 yrs Sex: Male : 1960 Arrival Date: 05/08/2022 Time: 05:40 Bed 15 Private MD: MIHAELA Physician Giovanny Miller HPI: 05/08 06:08 This 61 yrs old Male presents to ER via Wheelchair with complaints of bubab Abdominal Pain. 06:08 The patient presents with abdominal pain in the right upper quadrant, abdominal bubba distention in the upper abdomen, in the lower abdomen. Onset: The symptoms/episode began/occurred 1 day(s) ago. The symptoms do not radiate. Associated signs and symptoms: none. The symptoms are described as constant, crampy. Modifying factors: The symptoms are alleviated by nothing, the symptoms are aggravated by movement, pressure. Severity of pain: At its worst the pain was moderate in the emergency department the pain is unchanged. Historical: - Allergies: 05:47 No Known Allergies; as6 - Home Meds: 05:47 Imbruvica 140 mg Oral cap 3 caps once daily [Active]; montelukast 5 mg Oral chew 2 tabs as6 once daily [Active]; Ventolin Rotahaler/Rotacaps Inhl daily [Active]; - PMHx: 05:47 CLL; LYMPHOMA; as6 - PSHx: 05:47 Cholecystectomy; as6 - Immunization history:: Client reports having NOT received the Covid vaccine. - Social history:: Smoking status: Patient denies any tobacco usage or history of. - Family history:: not pertinent. ROS: 06:08 Constitutional: Negative for fever, chills, and weight loss, Eyes: Negative for injury, bubba pain, redness, and discharge, ENT: Negative for injury, pain, and discharge, Neck: Negative for injury, pain, and swelling, Cardiovascular: Negative for chest pain, palpitations, and edema, Abdomen/GI: Negative for abdominal pain, nausea, vomiting, diarrhea, and constipation, Back: Negative for injury and pain, : Negative for injury, bleeding, discharge, and swelling, MS/Extremity: Negative for injury and deformity, Skin: Negative for injury, rash, and discoloration, Neuro: Negative for headache, weakness, numbness, tingling, and seizure. 06:08 Respiratory: 06:08 Abdomen/GI: Positive for abdominal pain, abdominal cramps, of the right upper quadrant. Exam: 06:08 Constitutional: This is a well developed, well nourished patient who is awake, alert, bubba and in no acute distress. Head/Face: Normocephalic, atraumatic. Eyes: Pupils equal round and reactive to light, extra-ocular motions intact. Lids and lashes normal. Conjunctiva and sclera are non-icteric and not injected. Cornea within normal limits. Periorbital areas with no swelling, redness, or edema. ENT: Nares patent. No nasal discharge, no septal abnormalities noted. Tympanic membranes are normal and external auditory canals are clear. Oropharynx with no redness, swelling, or masses, exudates, or evidence of obstruction, uvula midline. Mucous membranes moist. Neck: Trachea midline, no thyromegaly or masses palpated, and no cervical lymphadenopathy. Supple, full range of motion without nuchal rigidity, or vertebral point tenderness. No Meningismus. Chest/axilla: Normal chest wall appearance and motion. Nontender with no deformity. No lesions are appreciated. Cardiovascular: Regular rate and rhythm with a normal S1 and S2. No gallops, murmurs, or rubs. Normal PMI, no JVD. No pulse deficits. Respiratory: Lungs have equal breath sounds bilaterally, clear to auscultation and percussion. No rales, rhonchi or wheezes noted. No increased work of breathing, no retractions or nasal flaring. Back: No spinal tenderness. No costovertebral tenderness. Full range of motion. Male : Normal genitalia with no discharge or lesions. Skin: Warm, dry with normal turgor. Normal color with no rashes, no lesions, and no evidence of cellulitis. MS/ Extremity: Pulses equal, no cyanosis. Neurovascular intact. Full, normal range of motion. Neuro: Awake and alert, GCS 15, oriented to person, place, time, and situation. Cranial nerves II-XII grossly intact. Motor strength 5/5 in all extremities. Sensory grossly intact. Cerebellar exam normal. Normal gait. Psych: Awake, alert, with orientation to person, place and time. Behavior, mood, and affect are within normal limits. 06:08 Abdomen/GI: Inspection: abdomen appears normal, Bowel sounds: normal, Palpation: moderate abdominal tenderness, in the epigastric area and right upper quadrant, Liver: no appreciated palpable abnormalities, Hernia: not appreciated. 07:04 ECG was reviewed by the Attending Physician. [facility] Vital Signs: 05:43 BP 202 / 126; Pulse 87; Resp 18 S; Temp 98.4(O); Pulse Ox 94% on R/A; Weight 61.23 kg as6 (R); Height 5 ft. 2 in. (157.48 cm) (R); Pain 10/10; 20:55 BP 152 / 97; Pulse 95; Resp 17; Pulse Ox 95% ; Pain 6/10; ja4 05:43 Body Mass Index 24.69 (61.23 kg, 157.48 cm) as6 MDM: 05:58 Patient medically screened. [facility] 07:03 Differential diagnosis: bowel obstruction, diverticulitis, gastritis, gastroesophageal bubba reflux disease, myocardia ischemia or infarction, non-specific abd pain, pancreatitis, Peptic Ulcer Disease, Perf. Duodenal Ulcer. Data reviewed: vital signs, nurses notes, lab test result(s), EKG, radiologic studies, CT scan. Data interpreted: security monitor: rate is 87 beats/min, rhythm is regular, Pulse oximetry: on room air is 94 %. Test interpretation: by ED physician or midlevel provider: ECG, plain radiologic studies. Counseling: I had a detailed discussion with the patient and/or guardian regarding: the historical points, exam findings, and any diagnostic results supporting the discharge/admit diagnosis, lab results, radiology results, the need for further work-up and treatment in the hospital. 05/08 06:06 Order name: Basic Metabolic Panel; Complete Time: 07:04 [facility] 05/08 06:06 Order name: CBC with Diff; Complete Time: 06:43 [facility] 05/08 06:06 Order name: LFT's; Complete Time: 07:04 [facility] 05/08 06:06 Order name: Magnesium; Complete Time: 07:04 [facility] 05/08 06:06 Order name: NT PRO-BNP; Complete Time: 07:04 [facility] 05/08 06:06 Order name: PT-INR; Complete Time: 06:43 [facility] 05/08 06:06 Order name: Troponin HS; Complete Time: 07:04 [facility] 05/08 06:06 Order name: XRAY Chest (1 view); Complete Time: 09:35 [facility] 05/08 06:06 Order name: Lipase; Complete Time: 07:04 [facility] 05/08 06:06 Order name: SARS RAPID; Complete Time: 07:04 [facility] 05/08 06:06 Order name: CT Abd/Pelvis - IV Contrast Only [facility] 05/08 07:57 Order name: CT; Complete Time: 09:35 EDMS 05/08 06:06 Order name: EKG; Complete Time: 06:07 [facility] 05/08 06:06 Order name: Cardiac monitoring; Complete Time: 07:31 [facility] 05/08 06:06 Order name: EKG - Nurse/Tech; Complete Time: 06:23 [facility] 05/08 06:06 Order name: IV Saline Lock; Complete Time: 06:23 [facility] 05/08 06:06 Order name: Labs collected and sent; Complete Time: 07:30 [facility] 05/08 06:06 Order name: O2 Per Protocol; Complete Time: 06:23 [facility] 05/08 06:06 Order name: O2 Sat Monitoring; Complete Time: 06:23 [facility] 05/08 06:59 Order name: CONS Physician Consult EDMS EC:04 Rate is 73 beats/min. Rhythm is regular. QRS [place] is Normal. AR interval is normal. QRS bubba interval is normal. QT interval is normal. No Q waves. T waves are Normal. No ST changes noted. Clinical impression: NSR w/ Non-specific ST/T Changes and No evidence of ischemia. Interpreted by me. Reviewed by me. Administered Medications: 06:40 Drug: NS 0.9% 1000 ml Route: IV; Rate: 125 ml/hr; Site: right forearm; jb4 06:40 Drug: Zofran (Ondansetron) 4 mg Route: IVP; Site: right forearm; jb4 07:00 Follow up: Response: No adverse reaction jd3 06:42 Drug: Pepcid (famotidine) 20 mg Route: IVP; Site: right forearm; jb4 07:00 Follow up: Response: No adverse reaction jd3 06:44 Drug: Dilaudid (HYDROmorphone) 1 mg Route: IVP; Site: right forearm; jb4 07:00 Follow up: Response: No adverse reaction; RASS: Alert and Calm (0) jd3 07:48 Drug: Dilaudid (HYDROmorphone) 1 mg Route: IVP; Site: right wrist; em6 07:48 Drug: Zosyn (piperacillin-tazobactam) 3.375 grams Route: IVPB; Infused Over: 60 mins; em6 Site: right wrist; Disposition Summary: 05/08/22 19:46 Hospitalization Ordered Hospitalization Status: Inpatient Admission(05/08/22 19:46) Provider: Giovanny Miller(05/08/22 19:46) sam Location: Telemetry/MedSurg (Inpatient)(05/08/22 19:46) Condition: Stable(05/08/22 19:46) Bed/Room Type: Standard(05/08/22 19:46) Room Assignment: 201(05/08/22 20:20) Diagnosis - Other acute postprocedural pain Forms: - Medication Reconciliation Form kl - SBAR form Signatures: Dispatcher [employer] EDWendie Ansari RN RN kl Anderson, Corey, MD MD cha Rittger, Kevin, MD MD kdr Garcia, Cindy, RN RN Yoni Fairchild RN RN jb4 Willie Rendon RN RN as6 Sameera John RN RN em6 Aiden Suarez RN jd3 Corrections: (The following items were deleted from the chart) 19:37 06:54 bubba cg 19:42 06:54 Inpatient Admission bubba ja4 19:42 06:54 Jordan Juarez bubba ja4 19:42 06:54 Telemetry/MedSurg (Inpatient) bubba ja4 19:42 06:54 Fair bubba ja4 19:42 06:54 new bubba ja4 19:42 06:54 have improved bubba ja4 19:42 06:54 Standard bubba ja4 19:42 06:54 Abdominal tenderness - SP LAPARSCOPIC CHOLECYSTECTOMY bubba ja4 19:42 06:54 Essential (primary) hypertension bubba ja4 19:42 06:54 Chronic lymphocytic leukemia of B-cell type bubba ja4 19:42 19:37 201 cg ja4 20:20 19:46 [facility]
[2022-05-08] MEDS ORDERED: MORPHINE 4 MG/ML SYR IV PRN (07:22)
[2022-05-08] MEDS ORDERED: NA CHLORIDE 0.9% 1,000 ML IV SCH (07:22)
[2022-05-08] MEDS ORDERED: ONDANSETRON 4 MG/2 ML VIAL IV PRN (07:22)
[2022-05-08] MEDS ORDERED: ACETAMINOPHEN 325 MG TABLET PO PRN (07:33)
[2022-05-08] MEDS ORDERED: PIPERACIL/TAZO 3.375 GM VIAL IV ONE ×2 (07:44→18:58)
[2022-05-08] MEDS ORDERED: NA CHLORIDE 0.9% 100 ML ONE ×2 (07:44→18:59)
--- NOTE | 2022-05-08 07:56 | RAD REPORT ---
EXAM DESCRIPTION: CTAbdomen Pelvis W Contrast - 05/08/2022 7:24 am CLINICAL HISTORY: RLQ abdominal pain COMPARISON: Abdomen Pelvis W Contrast dated 05/06/2022; Abdomen Pelvis W Contrast dated 04/12/2017; Chest For Pe Angio dated 05/06/2022 TECHNIQUE: CT of the abdomen and pelvis was performed. All CT scans are performed using dose optimization technique as appropriate and may include automated exposure control or mA/KV adjustment according to patient size. FINDINGS: Lower chest: Dependent atelectasis. Trace left effusion. Circumferential thickened distal esophagus. Liver: No acute abnormality or suspicious lesions. Biliary: Interval cholecystectomy. Small amount of fluid is present at the gallbladder fossa which is unchanged since 05/06/2022. Similar mild extrahepatic biliary duct dilatation. Stomach: No significant focal abnormality. Duodenum: No significant focal abnormality. Pancreas: No significant abnormality. Spleen: Splenomegaly. The spleen measures 16 cm in CC dimension. Adrenal: No suspicious lesions. Kidney/ureter: No hydronephrosis. No renal calculi. Too small to characterize and/or benign appearing renal lesions are noted. Retroperitoneum: No retroperitoneal adenopathy. Vascular: No aneurysm. Bowel: Normal appendix.. Diverticulosis. No evidence of acute diverticulitis. Peritoneum: Small volume of free fluid is present in the right lower quadrant and is similar to prior . Bladder: Grossly unremarkable. Reproductive: Hyperenhancement in the peripheral zone of the prostate on the right side. Bones: No acute fracture. Other: n/a IMPRESSION: 1. No significant change compared with 05/06/2022. Surgical changes from recent cholecys tectomy which are not unexpected. 2. Masslike enhancement in the peripheral zone of the prostate on the right side was not present on t he preceding CTs including as recent as 05/06/22 and is probably not clinically significant. Consider checking PSA level if not done recently as this can occasionally be seen with prostate malignancy. 3. Other ancillary findings as noted above.
--- NOTE | 2022-05-08 08:05 | RAD REPORT ---
EXAM DESCRIPTION: RAD - Chest Single View - 05/08/2022 7:07 am CLINICAL HISTORY: ABDOMINAL DISTENTION COMPARISON: Chest Single View dated 05/06/2022; Chest Pa And Lat (2 Views) dated 04/14/2022; Chest Sing le View dated 06/06/2021; Chest Single View dated 01/05/2021 FINDINGS: Lines: None. Lungs: No evidence of edema or pneumonia. Pleural: No significant pleural effusions or pneumothorax. Cardiac: The heart size is within normal limits. Mediastinum: Within normal limits. Bones: No acute fractures. Other: None IMPRESSION: No acute cardiopulmonary disease.
[2022-05-08] MEDS ORDERED: AMLODIPINE 10 MG TAB ONE (08:41)
[2022-05-08] MEDS: AMLODIPINE 10 MG TAB PO SCH (09:00)
[2022-05-08] MEDS: PIPER TAZO 3.375 GM in NA CHLORIDE 0.9% 100 ML IV SCH ×2 (09:00→17:00)
[2022-05-08] MEDS: FAMOTIDINE 20 MG/2 ML VIAL IV SCH ×2 (09:00→22:20)
--- NOTE | 2022-05-08 09:18 | EKG ---
Test Date: 2022-05-08 Test Time: 06:22:53 Labeling Associate: JONO MEASUREMENT RESULTS: Intervals: Rate: 73 WV: 146 QRSD: 78 QT: 394 QTc: 434 [place]: P: 65 WV: 146 QRS: 33 T: 51 INTERPRETIVE STATEMENTS: Normal sinus rhythm Normal ECG Compared to ECG 05/06/2022 23:44:17 Left ventricular hypertrophy no longer present Electronically Signed On 05-08-22 09:18:25 CDT by Fransisco Chong
--- NOTE | 2022-05-08 11:56 | P.HP ---
Certification for Inpatient Patient admitted to: Inpatient With expected LOS: >2 Midnights Patient will require the following post-hospital care: None Practitioner: I am a practitioner with admitting privileges, knowledge of patient current condition, hospital course, and medical plan of care. Services: Services provided to patient in accordance with Admission requirements found in Title 42 Section 412.3 of the Code of Federal Regulations Patient History Date of Service: 05/08/22 Primary Care Provider: Larry Reason for admission: post op pain History of Present Illness: Patient is a pleasant gentleman. Has a history of CLL. Had a cholecystectomy this past With Dr. Hernandez. He was sent home with tylenol #3. was not able to manage his pain. He came back yesterday and again today. His pain is currently being managed with IV medications. He does have some nausea. The patient is to start on his cll medication on Tuesday. Allergies acetaminophen [From [place]] Adverse Reaction (Verified 05/05/22 12:04) Nausea/Vomiting hydrocodone [From [place]] Adverse Reaction (Verified 05/05/22 12:04) Nausea/Vomiting ondansetron [From Zofran (as hydrochloride)] Adverse Reaction (Verified 05/05/22 12:04) Nausea/Vomiting Home Medications: Albuterol Inhaler [Ventolin Inhaler*] 2 puff IH Q6H PRN 09/15/16 Ibrutinib [Imbruvica] 420 mg PO DAILY 05/04/17 Acetaminophen [Tylenol Extra Strength] 2 tab PO DAILY 05/05/22 Ursodiol [Delilah] 1 tab PO BID 05/05/22 - Past Medical/Surgical History Diabetic: No -: Chronic Lymphoma Leukemia -: Asthma -: I&D buttock abscess - Family History Father -: Lung disease, Diabetes, Cancer Mother -: Liver disease Brother -: Diabetes - Social History Alcohol use: No CD- Drugs: Yes Caffeine use: Yes Review of Systems 10-point ROS is otherwise unremarkable Gastrointestinal: Nausea, Abdominal Pain Physical Examination - Vital Signs Blood Pressure: 183/95 Pulse: 70 - Physical Exam General: Alert, In no apparent distress HEENT: Atraumatic, PERRLA, Mucous membr. moist/pink, EOMI, Sclerae nonicteric Neck: Supple, 2+ carotid pulse no bruit, No LAD, Without JVD or thyroid ab normality Respiratory: Clear to auscultation bilaterally, Normal air movement Cardiovascular: Regular rate/rhythm, Normal S1 S2 Gastrointestinal: Hypoactive, Tenderness Musculoskeletal: No tenderness Integumentary: No rashes Neurological: Normal gait, Normal speech, Normal strength at 5/5 x4 extr, Normal tone, Normal affect Lymphatics: No axilla or inguinal lymphadenopathy - Studies Laboratory Data (last 24 hrs) 05/08/22 06:05: PT 11.7, INR 1.06 05/08/22 06:05: WBC 7.50, Hgb 18.3 H, Hct 52.6 H, Plt Count 106 L 05/08/22 06:05: Sodium 136, Potassium 4.0, BUN 9, Creatinine 1.18, Glucose 124 H, Magnesium 2.2, Total Bilirubin 1.0, AST 54 H, ALT 106 H, Alkaline Phosphatase 147 H, Lipase 95 Assessment and Plan - Problems (Diagnosis) (1) Cholecystitis Current Visit: Yes Status: Acute Plan: discussed with Dr. Hernandez. Possible a leak of the site, or spincter of Oddi spasms. Will get a hida scan to rule out. 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 (2) CLL (chronic lymphocytic leukemia) Onset Date: 12/14/17 Current Visit: No Status: Chronic Plan: restart his medications on Tuesday. (3) Nausea & vomiting Current Visit: Yes Status: Acute Plan: will start him on scheduled zofran. continue fluids. continue pain management as well. Qualifiers: Vomiting type: unspecified Qualified Code(s): R11.2 - Nausea with vomiting, unspecified Discharge Plan: Home Plan to discharge in: 24 Hours - Advance Directives Does patient have a Living Will: No Does patient have a Durable POA for Healthcare: No - Code Status/Comfort Care Code Status Assessed: No Physician Review: Patient Assessed, Agree with Above Assessment and Plan Critical Care: No Time Spent Managing Pts Care (In Minutes): 25
[2022-05-08] MEDS: ONDANSETRON 4 MG/2 ML VIAL IV SCH ×3 (12:00→23:02)
[2022-05-08] MEDS: D5 0.45 NS 1,000 ML IV SCH ×2 (12:00→22:19)
[2022-05-08] MEDS: HYDRALAZINE HCL 20 MG/ML VIAL IV PRN ×2 (12:30→22:20)
[2022-05-08] MEDS ORDERED: MORPHINE 4 MG/ML SYR ONE (12:34)
[2022-05-08] MEDS ORDERED: D5 0.45 NS 1,000 ML IV ONE (12:35)
[2022-05-08] MEDS ORDERED: HYDRALAZINE HCL 20 MG/ML VIAL ONE ×2 (12:48→16:28)
[2022-05-08] MEDS: PROMETHAZINE INJ 25 MG/ML AMP IV PRN ×2 (14:56→23:59)
[2022-05-08] MEDS ORDERED: HYDROMORPHONE HCL 1 MG/ML INJ IV PRN (16:10)
[2022-05-08] MEDS ORDERED: HYDRALAZINE HCL 20 MG/ML VIAL IV ONE (16:11)
[2022-05-08 19:21] VITALS: BMI 24.7
[2022-05-08] MEDS ORDERED: HYDROCODONE/APAP 10/325 TAB PO ONE (23:00)
[2022-05-08 23:24] VITALS: O2SAT 95
[2022-05-09] MEDS: PIPER TAZO 3.375 GM in NA CHLORIDE 0.9% 100 ML IV SCH ×2 (03:06→09:33)
[2022-05-09] MEDS: ONDANSETRON 4 MG/2 ML VIAL IV SCH ×2 (06:00→11:41)
[2022-05-09 07:07] LABS: Absolute Lymphocytes (CBC) 1.2 K/uL (0.7-4.9); Hematocrit 47.7 % (39.6-49.0); Lymphocytes % 15.1 % (15.3-44.8); MCV 87.2 fL (80-100); MPV 7.8 fL (7.6-11.3); RBC Red Blood Cell Count 5.47 M/uL (4.33-5.43)
[2022-05-09 07:31] LABS: Albumin 3.4 g/dL (3.4-5.0); Bilirubin Direct 0.3 mg/dL (0-0.2); Bilirubin Total 0.8 mg/dL (0.2-1.0); Potassium 3.2 mmol/L (3.5-5.1); Protein, Total 6.5 g/dL (6.4-8.2)
[2022-05-09] MEDS ORDERED: lisinopriL 20 MG TAB PO SCH (09:00)
[2022-05-09] MEDS: AMLODIPINE 10 MG TAB PO SCH (09:00)
--- NOTE | 2022-05-09 09:25 | RAD REPORT ---
EXAM DESCRIPTION: NM - Hepatobiliary System Imagin - 05/09/2022 9:00 am CLINICAL HISTORY: Abdominal pain TECHNIQUE: The patient was administered 5.8 millicuries technetium Choletec and images of the abdome n obtained for 60 minutes FINDINGS: Liver demonstrates prompt radiotracer uptake. Cholecystectomy. Prompt radiotracer activity is present within extrahepatic biliary tree extending into duodenum and s mall bowel. Focal collection radiotracer within the gallbladder fossa. This corresponds to a fluid collection see n on CT May 08, 2022 and likely indicates extravasation of bile. IMPRESSION: Bile leak
[2022-05-09] MEDS: FAMOTIDINE 20 MG/2 ML VIAL IV SCH (09:34)
[2022-05-09] MEDS: PROMETHAZINE INJ 25 MG/ML AMP IV PRN (09:41)
[2022-05-09] MEDS: D5 0.45 NS 1,000 ML IV SCH (10:38)
[2022-05-09] MEDS ORDERED: HYDROMORPHONE HCL 1 MG/ML INJ IV PRN (10:44)
[2022-05-09] MEDS ORDERED: HYDROMORPHONE HCL 0.5 MG/0.5 ML INJ IV ONE (11:00)
--- NOTE | 2022-05-09 11:32 | P.DS ---
Admission Date: 05/08/22 Discharge Date: 05/09/22 Primary Care Provider: Larry Disposition: TRANSFER TO [facility] Discharge Condition: GOOD Reason for Admission: post op pain - Problems (1) Cholecystitis Current Visit: Yes Status: Acute (2) CLL (chronic lymphocytic leukemia) Onset Date: 12/14/17 Current Visit: No Status: Chronic (3) Nausea & vomiting Current Visit: Yes Status: Acute Qualifiers: Vomiting type: unspecified Qualified Code(s): R11.2 - Nausea with vomiting, unspecified Brief History of Present Illness: Patient is a pleasant gentleman. Has a history of CLL. Had a cholecystectomy this past With Dr. Hernandez. He was sent home with tylenol #3. was not able to manage his pain. He came back yesterday and again today. His pain is currently being managed with IV medications. He does have some nausea. The patient is to start on his cll medication on Tuesday. Hospital Course: Patient had a bilary leak after his cholecystectomy. Will transfer him to [facility] for an ercp. Vital Signs/Physical Exam: Temp Pulse Resp BP Pulse Ox 97.6 F 89 14 149/99 H 95 05/09/22 07:50 05/09/22 07:50 05/09/22 10:52 05/09/22 07:50 05/09/22 10:52 General: Alert, In no apparent distress HEENT: Atraumatic, PERRLA, EOMI Neck: Supple, JVD not distended Respiratory: Clear to auscultation bilaterally, Normal air movement Cardiovascular: Regular rate/rhythm, Normal S1 S2 Gastrointestinal: Normal bowel sounds, No tenderness Musculoskeletal: No tenderness Integumentary: No rashes Neurological: Normal speech, Normal tone, Normal affect Lymphatics: No axilla or inguinal lymphadenopathy Laboratory Data at Discharge: WBC 7.90 K/uL (4.3-10.9) 05/09/22 06:59 Hgb 16.5 g/dL (13.6-17.9) 05/09/22 06:59 Hct 47.7 % (39.6-49.0) 05/09/22 06:59 Plt Count 109 K/uL (152-406) L 05/09/22 06:59 PT 11.7 SECONDS (9.5-12.5) 05/08/22 06:05 INR 1.06 05/08/22 06:05 Sodium 134 mmol/L (136-145) L 05/09/22 06:59 Potassium 3.2 mmol/L (3.5-5.1) L 05/09/22 06:59 BUN 8 mg/dL (7-18) 05/09/22 06:59 Creatinine 0.99 mg/dL (0.55-1.3) 05/09/22 06:59 Glucose 146 mg/dL (74-106) H 05/09/22 06:59 Magnesium 2.2 mg/dL (1.8-2.4) 05/08/22 06:05 Total Bilirubin 0.8 mg/dL (0.2-1.0) 05/09/22 06:59 AST 30 U/L (15-37) 05/09/22 06:59 ALT 65 U/L (12-78) 05/09/22 06:59 Alkaline Phosphatase 119 U/L (45-117) H 05/09/22 06:59 Lipase 118 U/L (73-393) 05/09/22 06:59 Home Medications: Ibrutinib [Imbruvica] 420 mg PO DAILY 05/04/17 Diet: [place] Activity: Ad troy Followup: Jordan Juarez MD [Primary Care Provider] - Steffen Hernandez MD [ACTIVE - CAN ADMIT] - Physician Review: Patient Assessed, Agree with Above Assessment and Plan Time spent managing pt's care (in minutes): 30
--- NOTE | 2022-05-09 11:43 | CON ---
Date of Consultation: 05/08/2022 Brief History Of Present Illness: The patient is a 61-year-old male, who recently underwent a laparo scopic cholecystectomy on of last week, who complains of worsening abdominal pain. He prese nted to the ER, had a CT scan, was complaining predominantly of urinary symptoms and pain in the left lower abdomen. Urinary symptoms improved. He had significant pain improvement and as such he went home; however, he came back on yesterday last evening and ultimately was admitted for pain control on ce again. He states that the pain is to the left and lower abdomen area and it has been getting prog ressively worse. Past Medical History: Significant for CLL it is chronic lymphocytic leukemia, status post treatment. He had biliary dyskinesia/chronic cholecystitis. Past Surgical History: Laparoscopic cholecystectomy. Allergies: NO KNOWN DRUG ALLERGIES. Physical Examination: General: At the time of my examination; he is awake, alert, and oriented. Psychiatric: He is appropriate and conversive. He appears in [id number] discomfort at this ti me. HEENT: Normocephalic. Sclerae anicteric. Mucous membranes moist. Oropharynx clear. Neck: Supple without JVD. Chest: Normal expansion and excursion. Cardiovascular: Regular rate and rhythm. Pulmonary: Clear to auscultation bilaterally. Abdomen: Soft with global tenderness to palpation. He does not have peritonitis, but does have sign ificant pain with deep palpation, particularly in the right abdomen in the epigastric area. Skin: Warm and dry. Skin incisions on the abdomen are healing well and sealed currently. Laboratory Data: Revealed a white blood cell count of 7.9, hemoglobin 16.5, hematocrit 47.7, platele t count is 109. Sodium is 136, potassium 4.0, chloride 100, carbon dioxide 24, BUN 9, creatinine 1.1 8, glucose was 124, total bilirubin 1.0, direct component 0.3, AST 54, ALT 106, alkaline phosphatase is 147. His lipase is 95. He had imaging performed, which included a CT of the abdomen and pelvis, which was read as no significant change compared to 05/06/2022, surgical change to cholecystectomy __ mass like enhancement with peripheral zone of the prostate on the right side it was not pres ent on preceding CTs, probably not clinically significant, specifically interval cholecystectomy, sma ll amount of fluid present in the gallbladder fossa which is unchanged since 05/06, similar mild extr ahepatic biliary ductal dilatation. Assessment And Plan: This is a 61-year-old male, who comes in with abdominal pain after cholecystect karl. 1.IV fluid hydration. 2.Antibiotic coverage. 3.Serial abdominal exams. 4.I will order HIDA scan to see if the patient has any evidence of biliary tract obstruction and/or likely leak given his clinical picture. If it is positive, I will recommend ERCP and evaluation. 5.I have explained risks, benefits, and alternatives of the above-stated plan. The patient agrees t o proceed as indicated. SONIA/CHASE Voice ID: [id number] Report ID: [id number]
[2022-05-09 11:58] VITALS: BP 154/97; TEMP 97.7
== END 2022-05-09 12:38 | disposition short-term general hospital (02) | DRG 445 ==
LOC: ER 05:37 → ERHOLD 06:55 → 2ND 20:32
PROVIDERS: ADMIT Internal Medicine; ATTEND Internal Medicine
DX: K91.5 Postcholecystectomy syndrome (principal); C91.10 Chronic lymphocytic leukemia of B-cell type not having achieved remission; R11.2 Nausea with vomiting, unspecified; J45.909 Unspecified asthma, uncomplicated; Z20.822 Contact with and (suspected) exposure to COVID-19
CPT/HCPCS: 36415; 71045; 74177; 78226; 80048; 80076; 83690; 83735; 83880; 84484; 85025; 85610; 87811; 93005; 99285; A9537; J0360; J1170; J2405; J2543; J2550; J7030; J7799; Q9967

== ENCOUNTER 2022-05-14 13:03 | Emergency (ER) | payer OTHER ==
--- OUTSIDE RECORDS SUMMARY | 2022-05-14 14:01 | XMS REPORT | Continuity of Care Document ---
:1960 Author Organization [facility] t Address [address] [place] [address] Dr. Quinn [address] [place] [address] Care Team Providers Name Role Phone RADHA OTTO Attending Clinician Unavailable SANDRA CORDERO Attending Clinician Unavailable Yue Moulton MD Attending Clinician Sandra Cordero MD Attending Clinician Holly Martinez MD Attending Clinician David Michael MD Attending Clinician Radha Otto Attending Clinician YUE MOULTON Attending Clinician Unavailable Ashvin Carter Attending Clinician Unavailable RADHA OTTO Admitting Clinician Unavailable SANDRA CORDERO Admitting Clinician Unavailable YUE MOULTON Admitting Clinician Unavailable Jordan Juarez Admitting Clinician Unavailable Payers Payer Name Policy Type Policy Number Effective Date Expiration Date Markell CUEVAS [id number] 2021 00:00:00 Problems Condition Condition Condition Status Onset Resolution Last Treating Co mments Source Name Details Category Date Date Treatment Clinician Date Bile leak Bile leak Disease [facility] Medical [address] [place] [address] Biliary Biliary Disease Active [facility] anastomoti anastomoti 05-10 Brandi kes c leak c leak 00:00: Medical 00 Center Pneumonia Pneumonia Disease Active 2015-[address] [facility] of both of both 10[facility]09 [facility] lower lower 00:00: Medical lobes due lobes due 00 Cent er to to infectious infectious organism organism Hyponatrem Hyponatrem Disease Active 2015-[address] ia ia 10[facility]09 [facility] Center 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 10-07 Brandi kes ban ban 00:00: Medical 00 Center SIRS SIRS Disease Active 2015-[address] (systemic (systemic 10-07 [facility] inflammato inflammato 00:00: Me dical ry ry 00 Center response response syndrome) syndrome) Lymphoma, Lymphoma, Disease Active 2015-[address] low grade low grade 10-07 [facility] 00:00: Medical 00 Center Weakness Weakness Disease Active 2015-09 [facility] 00:[facility]: Medical 00 [place] Anemia Anemia Disease Active 2015-[address] [facility] 00[facility] Medical 00 Center Thrombocyt Thrombocyt Disease Active 2015-[address] openia openia 10-06 [facility] Medical 00 Center Shortness Shortness Disease Active 2015-[address] of breath of breath 10-06 [facility] 00:00: Medical 00 Center Other Other Problem Active Common chronic chronic Spirit pain pain - [facility] Allergic Allergic Problem Active Commo n rhinitis, rhinitis, Spir it seasonal seasonal - [facility] Essential Essential Problem Active Com mon (primary) (primary) Spir it hypertensi hypertensi - [facility] on on [facility] Paresthesi Paresthesi Problem Active C ommon a of skin a of skin Spir it - [facility] Scratched Scratched Problem Active Com mon by cat, by cat, Spirit initial initial - [facility]I encounter encounter [facility] Asthmatic Asthmatic Problem Active Com mon bronchitis bronchitis Sp epifanio - [facility] 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 Tenosynovi Tenosynovi Diagnosis Active Common tis of tis of Spirit left ankle left ankle - [facility] Pain in Pain in Diagnosis Active Commo n left ankle left ankle Sp epifanio and joints and joints - CHI of left of left St foot foot [facility] Sprain of Sprain of Diagnosis Active C ommon other other Spirit ligament ligament - [facility]I of left of left ankle, ankle, [facility] sequela [facility] Allergies, Adverse Reactions, Alerts Allergy Allergy Status Severity Reaction(s) Onset Inactive Treating Comm ents Source Name Type Date Date Clinician No Known DA Active [facility] Allergie 10-05 Clear s 00:00: Rodríguez 00 [facility] Ondanset Adverse Active Info Not Commo n becca Reaction Available Spiri t - [facility] Lisinopr Adverse Active headache, Comm on il Reaction numbness/tin Sp epifanio gling to R - [facility] arm [facility] Hydrocod Adverse Active Info Not Commo n one-Acet Reaction Available Spi rit aminophe - n [facility] NO KNOWN Allergy Active [facility] Social History Social Habit Start Date Stop Date Quantity Comments Source History [facility] Places Medical Ce nter Lived History [facility]-Med Medical Center Alcohol intake 2022-05-11 2022-05-[address] [facility] es 00:00:00 00:00:00 non-drinker of Medical Ce nter alcohol (finding) History [facility] 2022-05-10 2022-05-[address] [facility] Housing Unable to 00:00:00 00:00:00 Medical Center Pay History [facility] 2022-05-10 2022-05-[address] [facility] Housing Homeless 00:00:00 00:00:00 Medical Center Last Year History [facility] 2022-05-10 2022-05-[address] [facility] Transport Med 00:00:00 00:00:[address] [facility] ter Tobacco use and 2016-08-05 2016-08-[address] Brandi kes exposure 00:00:00 00:00:00 Medical Center Sex Assigned At [address] Brandi kes 00:00:00 00:00:00 Medical Center Smoking Status Start Date Stop Date Source Never sm[facility] Center Medications Ordered Filled Start Stop Current Ordering Indication Dosage Frequency Signature Comments Components Source Medication Medication Date Date Medication? Clinician (SIG) Name Name tamsulosin 2021- Yes .8mg QD Take [address] (FLOMAX) 05-11 capsules [facility] 0.4 mg Cap 00:00: 23:59 (0.8 mg Med ical 24 hr 00 :00 total) by Center capsule mouth daily for 90 days. HYDROcodone 2021- Yes 1{tbl} Take [address] -acetaminop 05-11 tablet by Brandi akers hen (NORCO 00:00: 23:59 mouth Medic al 5-325) 00 :00 every 6 Center 5-325 mg (six) per tablet hours as needed for up to 7 days. Max Daily Amount: 4 tablets ondansetron 2021- Yes 4mg Take 1 [facility] (ZOFRAN-ODT 05-11 tablet (4 Brandi akers ) 4 MG 00:00: 23:59 mg total) Medic al disintegrat 00 :00 by mouth Cent er ing tablet every 8 (eight) hours as needed for Nausea for up to 7 days. Ibrutinib Ibrutinib Yes Kosta 1 tablet Common 4-11 Kamara Spirit 00:00: - 00 [facility] Fluticasone Fluticasone Yes Kosta 1 spray in Common Propionate Propionate Kamara each Spi rit nostril [facility] ProAir ProAir Yes Kosta 2 puffs as Co mmon RespiClick RespiClick Kamara needed S pirit [facility] Vitamin Vitamin Yes Kosta not Common B-12 B-12 Kamara defined [facility] Centrum Centrum Yes Kosta not Common Adults Adults Kamara defined [facility] Allopurinol Allopurinol Yes Kosta 1 tablet Common Kamara [facility] Vital Signs Vital Name Observation Time Observation Value Comments Source Systolic blood 2022-05-11 15:14:00 132 mm[Hg] [facility] Diastolic blood 2022-05-11 15:14:00 84 mm[Hg] [facility] Heart rate 2022-05-11 15:14:00 89 /min [facility] Body temperature 2022-05-11 15:14:00 37.11 Yamilex [facility] Respiratory rate 2022-05-11 15:14:00 18 /min [facility] Oxygen saturation in 2022-05-11 15:14:00 94 /min [facility] Arterial blood by Medical Ce nter Pulse oximetry Procedures Procedure Date / Time Performing Clinician Source Performed BASIC METABOLIC PANEL (7) 2022-05-11 03:30:00 Sandra Cordero [facility] CBC W/PLT COUNT & AUTO 2022-05-11 03:30:[address] [facility] MAGNESIUM 2022-05-11 03:30:[address] [facility] HEPATIC FUNCTION PANEL 2022-05-11 03:30:00 Consuelo [facility] LIPID PANEL 2022-05-11 03:30:[address] [facility] CBC W/PLT COUNT & AUTO 2022-05-11 03:30:00 [facility] ABDOMEN/PELVIS WITH IV 2022-05-10 19:08:[address] [facility] REPORT OF PROCEDURE - 2022-05-10 14:45:00 [facility] ENDOSCOPIC RETROGRADE 2022-05-10 08:00:00 [facility] WITH SPHINCTEROTOMY ENDOSCOPIC RETROGRADE 2022-05-10 08:00:00 [facility] WITH BILE DUCT STENT INSERTION ENDOSCOPIC RETROGRADE 2022-05-10 08:00:00 [facility]OL[facility]IINTER[facility]ALTH[facility]ENCRECHI [facility] WITH BALLOON SWEEP OF BILE DUCTS PROCEDURE W/ C-ARM 2022-05-10 08:00:00 [facility] CBC (HEMOGRAM ONLY) 2022-05-10 03:20:00 [facility] COMPREHENSIVE METABOLIC 2022-05-10 03:20:00 [facility] SARS-COV2/RT-PCR ([facility] & 2022-05-09 17:00:00 Holly Martinez [facility] REF LABS) Medical Center Plan of Care Planned Activity Planned Date Details Comments Source Future Scheduled Test 2027-05-[address] [facility] 00:00:00 (procedure) [code = Medical Center 89547370] Future Scheduled Test 2022-05-06 INFLUENZA VACCINE (#1) [facility] 00:00:00 [code = INFLUENZA Medical Ce nter VACCINE (#1)] Future Scheduled Test 2021-09-[address] [facility] 00:00:00 (12+) [code = Medical Center DEPRESSION SCREENING (12+)] Future Scheduled Test 2009-12-24 SHINGLES VACCINES ([address] [facility] 00:00:00 of 2) [code = SHINGLES Medic al Center VACCINES (1 of 2)] Future Scheduled Test 1978-12-24 DTAP/TDAP/TD VACCINES [facility] 00:00:00 (1 - Tdap) [code = Medical C enter DTAP/TDAP/TD VACCINES (1 - Tdap)] Future Scheduled Test 1965-12-[address] [facility] 00:00:00 0-64 YRS (1 - PCV) Medical C enter [code = PNEUMOCOCCAL VACCINE 0-64 YRS (1 - PCV)] Future Scheduled Test 1960-06-25 COVID-19 VACCINE (#1) [facility] 00:00:00 [code = COVID-[address] VACCINE (#1)] Future Scheduled Test [address] [facility] 00:00:00 (combo) [code = CT Medical C enter Colonography (combo)] Future Scheduled Test 1960 [facility] malignant neoplasm of Medica l Center colon (procedure) [code = 725822178] Future Scheduled Test 1960 [facility] malignant neoplasm of Medica l Center colon (procedure) [code = 723945731] Future Scheduled Test 1960 [facility]00 malignant neoplasm of Medica l Center colon (procedure) [code = 882399666] Future Scheduled Test 1960 [facility]:00 malignant neoplasm of Medica l Center colon (procedure) [code = 466128412] Future Scheduled Test 1960 Sigmoidoscopy [code = [facility] 00:00:00 Sigmoidoscopy] Medical Cente r Future Appointment 2022-06-09 Radha Otto, [address] [facility] 11:30:00 Helotes; Daniel 8B, [place] [address] Future Appointment 2022-06-09 Radha Otto, [address] [facility] 11:30:00 Helotes; Daniel 8B, [place] [address] Procedure 2022-06-[address] [facility] 11:30:00 CHOLANGIOPANCREATOGRAP [facility] HY, WITH STENT REMOVAL Encounters Start End Encounter Admission Attending Care Care Encounter Source Date/Time Date/Time Type Type Clinicians Facility Department ID 2022-05-14 Outpatient ISIDRO OTTO Surgery [id number] [facility] 12:12:34 [facility] 2022-05-09 2022-05-11 [id number] [facility] 13:34:00 16:33:00 SANDRA 2022-05-09 2022-05-11 Hospital Yue Moulton [facility] [id number] [facility] 13:34:00 16:33:00 Encounter Sandra Cordero [facility] 2022-05-10 2022-05-10 Anesthesia David Michael [facility] [id number] 08:25:00 10:25:00 Event [facility] 2022-05-10 2022-05-10 Surgery Fam [facility] [id number] 08:00:00 09:14:00 [facility] 2022-05-09 2022-05-09 Outpatient [facility] [place] [id number] [facility] 13:34:00 23:59:00 Shadi 2022-01-07 2022-01-07 [id number] [facility] 14:41:00 14:41:00 Ashvin Ward [facility] 2018-10-23 2018-10-23 [id number] Common 09:00:00 09:00:00 [facility] 2018-09-06 2018-09-06 Outpatient Robert Castillo [id number] Common 16:13:00 16:13:00 t [facility] [address] Spir [address] Road Family [facility] Family [facility] 2018-08-23 2018-08-23 Outpatient Robert Castillo [id number] Common 14:30:00 14:30:00 t [facility] 2018-08-22 2018-08-22 Outpatient Robert Castillo [id number] Common 15:00:00 15:00:00 t [facility] Results Test Description Test Time Test Comments Results Result Comments Source BASIC METABOLIC PANEL 2022-05-11 04:05:58 Test Item Value Reference Range Interpretation Comme nts SODIUM (BEAKER) (test 137 meq/L 136-145 code = 381) POTASSIUM (BEAKER) 3.6 meq/L 3.5-5.1 (test code = 379) CHLORIDE (BEAKER) (test 103 meq/L 98-107 code = 382) CO2 (BEAKER) (test code 23 meq/L 22-29 = 355) BLOOD UREA NITROGEN 15 mg/dL 7-21 (BEAKER) (test code = 354) CREATININE (BEAKER) 0.82 mg/dL 0.57-1.25 (test code = 358) GLUCOSE RANDOM (BEAKER) 105 mg/dL 70-105 (test code = 652) CALCIUM (BEAKER) (test 8.6 mg/dL 8.4-10.2 code = 697) EGFR (BEAKER) (test 100 mL/min/1.73 sq I nterpretation of eGFR values code = 1092) m Stage Descripti on Result G1 Normal or high >=90 G2 Mildly decreased 60-89 G3a Mildly to moderately 45-5 9 G3b Moderately to severely 30- 44 G4 Severly decreased 15-29 G5 Kidney failure <15Repo rted eGFR is based on the CK D-EPI 2020 equation that d oes not use a race coefficien tEstimated GFR is not as accurate as Creatinine Clearance in pr edicting glomerular filt ration rate. Estimated GFR i s not applicable for dialysis kaleb don Shoe Planner ID - YOU [id number] 04:05:58 Test Item Value Reference Range Interpretation Comments MAGNESIUM (BEAKER) (test code = 2.2 mg/dL 1.6-2.6 627) Shoe Planner ID - YOU WLIPID [id number] 04:05:58 Test Item Value Reference Range Interpretation Comments TRIGLYCERIDES (BEAKER) (test code = 118 mg/dL 540) CHOLESTEROL (BEAKER) (test code = 154 mg/dL 631) HDL CHOLESTEROL (BEAKER) (test code 31 mg/dL = 976) LDL CHOLESTEROL CALCULATED (BEAKER) 99 mg/dL (test code = 633) Triglyceride Reference Range: Low Risk <150 Borderline 150-199 High Risk 200- 499 Very High Risk >=500Cholesterol Reference Range: Low Risk <200 Borderline 200-239 High Risk >240HDL Cholesterol Reference Range: Low Risk >=60 High Risk <40LDL Cholesterol Reference Range: Optimal <100 Near Optimal 100-129 Borderline 130-159 High 160-189 Very High >=190 Shoe Planner ID - YOU WHEPATIC FUNCTION [id number] 04:05:58 Test Item Value Reference Range Interpretation Comments TOTAL PROTEIN (BEAKER) (test code = 6.2 gm/dL 6.0-8.3 770) ALBUMIN (BEAKER) (test code = 1145) 4.0 g/dL 3.5-5.0 BILIRUBIN TOTAL (BEAKER) (test code 1.1 mg/dL 0.2-1.2 = 377) BILIRUBIN DIRECT (BEAKER) (test 0.6 mg/dL 0.1-0.5 H code = 706) ALKALINE PHOSPHATASE (BEAKER) (test 133 U/L 40-150 code = 346) AST (SGOT) (BEAKER) (test code = 37 U/L 5-34 H 353) ALT (SGPT) (BEAKER) (test code = 54 U/L 6-55 347) Shoe Planner ID Anatoliy ROTA WCBC W/PLT COUNT & AUTO [id number] 03:45:31 Test Item Value Reference Range Interpretation Comments WHITE BLOOD CELL COUNT (BEAKER) 5.1 K/ L 3.5-10.5 (test code = 775) RED BLOOD CELL COUNT (BEAKER) 4.72 M/ L 4.63-6.08 (test code = 761) HEMOGLOBIN (BEAKER) (test code = 14.2 GM/DL 13.7-17.5 410) HEMATOCRIT (BEAKER) (test code = 40.6 % 40.1-51.0 411) MEAN CORPUSCULAR VOLUME (BEAKER) 86.0 fL 79.0-92.2 (test code = 753) MEAN CORPUSCULAR HEMOGLOBIN 30.1 pg 25.7-32.2 (BEAKER) (test code = 751) MEAN CORPUSCULAR HEMOGLOBIN CONC 35.0 GM/DL 32.3-36.5 (BEAKER) (test code = 752) RED CELL DISTRIBUTION WIDTH 12.2 % 11.6-14.4 (BEAKER) (test code = 412) PLATELET COUNT (BEAKER) (test code 95 K/CU MM 150-450 L = 756) MEAN PLATELET VOLUME (BEAKER) 9.8 fL 9.4-12.4 (test code = 754) NUCLEATED RED BLOOD CELLS (BEAKER) 0 /100 WBC 0-0 (test code = 413) NEUTROPHILS RELATIVE PERCENT 77 % (BEAKER) (test code = 429) LYMPHOCYTES RELATIVE PERCENT 13 % (BEAKER) (test code = 430) MONOCYTES RELATIVE PERCENT 8 % (BEAKER) (test code = 431) EOSINOPHILS RELATIVE PERCENT 1 % (BEAKER) (test code = 432) BASOPHILS RELATIVE PERCENT 0 % (BEAKER) (test code = 437) NEUTROPHILS ABSOLUTE COUNT 3.91 K/ L 1.78-5.38 (BEAKER) (test code = 670) LYMPHOCYTES ABSOLUTE COUNT 0.67 K/ L 1.32-3.57 L (BEAKER) (test code = 414) MONOCYTES ABSOLUTE COUNT (BEAKER) 0.43 K/ L 0.30-0.82 (test code = 415) EOSINOPHILS ABSOLUTE COUNT 0.06 K/ L 0.04-0.54 (BEAKER) (test code = 416) BASOPHILS ABSOLUTE COUNT (BEAKER) 0.01 K/ L 0.01-0.08 (test code = 417) IMMATURE GRANULOCYTES-RELATIVE 0 % 0-1 PERCENT (BEAKER) (test code = 2801) CT, [id number] 20:34:00Unlisted Reason for Exam - Click Yes and Enter Reason Below->NoIs this for enterography?->NoWill this procedure require oral contrast?->No [facility] : 1960 Sex: MFINAL REPORT CT ABDOMEN AND PELVIS WITH CONTRAST 05/10/2022 8:29 PM History: Acute nonlocalized abdominal pain. Bile leak. Comparison: CT abdomen and pelvis 08/07/2016 Technique: Helically acquired images were obtained through the abdomen and pelvis following the administration of contrast. Coronal reformats are provided. Post marginal radiation reduction technique was used. Findings: A biliary stent is in place and the patient is status post cholecystectomy. There is a small amount of fluid in the gallbladder fossa as well as the RIGHT lower quadrant and pelvis with no well-defined rim-enhancing fluid collection to suggest abscess. Normal enhancement of the liver, adrenals, kidneys and pancreas. No evidence of acute appendicitis. Splenomegaly measuring 15 cm decreased from the previousexam. No pathologic-appearing retroperitoneal or mesenteric lymph nodes. Resolution of adenopathy since the previous exam. No free intraperitoneal air. There are bilateral fat-containing inguinal hernias. No acute osseous abnormalities. There is moderate dilation of the proximal colon containing a large amount of gas and small amount of fluid. IMPRESSION: 1. Small volume of fluid in the gallbladder fossa and pelvis could represent bile given history of bile leak. There is no evidence of well-definedbiloma or abscess.2. Large amount of gas and stool in the colon with distention potentially related t o mild ileus.3. Splenomegaly decreased from the previous exam. Signed: Lisa [facility] Verified Date/Time: 05/10/2022 20:34:06 COMPREHENSIVE METABOLIC PANEL 2022-05-10 04:30:04 Test Item Value Reference Range Interpretation Comments TOTAL PROTEIN 6.4 gm/dL 6.0-8.3 Specimen sligh tly (BEAKER) (test hemolyzed code = 770) ALBUMIN (BEAKER) 4.0 g/dL 3.5-5.0 Specimen sl ightly (test code = 1145) hemolyzed ALKALINE 129 U/L 40-150 PHOSPHATASE (BEAKER) (test code = 346) BILIRUBIN TOTAL 1.0 mg/dL 0.2-1.2 Specimen sli ghtly (BEAKER) (test hemolyzed code = 377) SODIUM (BEAKER) 136 meq/L 136-145 (test code = 381) POTASSIUM (BEAKER) 3.6 meq/L 3.5-5.1 Specimen slightly (test code = 379) hemolyzed CHLORIDE (BEAKER) 104 meq/L 98-107 (test code = 382) CO2 (BEAKER) (test 22 meq/L 22-29 code = 355) BLOOD UREA 13 mg/dL 7-21 NITROGEN (BEAKER) (test code = 354) CREATININE 0.91 mg/dL 0.57-1.25 Specimen slight ly (BEAKER) (test hemolyzed code = 358) GLUCOSE RANDOM 99 mg/dL 70-105 (BEAKER) (test code = 652) CALCIUM (BEAKER) 9.1 mg/dL 8.4-10.2 (test code = 697) AST (SGOT) 25 U/L 5-34 Specimen slight ly (BEAKER) (test hemolyzed code = 353) ALT (SGPT) 47 U/L 6-55 Specimen slight ly (BEAKER) (test hemolyzed code = 347) EGFR (BEAKER) 96 Interpretatio n of eGFR (test code = 1092) mL/min/1.[address] age Description sq m Result G1 Raven l or high >=90 G2 Mildly decreased 60-89 G3a Mildl y to moderately 45-5 9 G3b Moderately to s everely 30-44 G4 Sever ly decreased 15-29 G5 Kidney failure <15Repo rted eGFR is based on the CKD-EPI 2020 equation t hat does not use a race coefficientEsti mated GFR is not as accur ate as Creatinine Shazia abril in predicting glom erular filtration rate . Estimated GFR is not appl icable for dialysis patien ts Shoe Planner ID - MERRY [facility] (HEMOGRAM ONLY)2022-05-10 03:55:35 Test Item Value Reference Range Interpretation Comments WHITE BLOOD CELL COUNT (BEAKER) 7.2 K/ L 3.5-10.5 (test code = 775) RED BLOOD CELL COUNT (BEAKER) 5.44 M/ L 4.63-6.08 (test code = 761) HEMOGLOBIN (BEAKER) (test code = 16.2 GM/DL 13.7-17.5 410) HEMATOCRIT (BEAKER) (test code = 47.2 % 40.1-51.0 411) MEAN CORPUSCULAR VOLUME (BEAKER) 86.8 fL 79.0-92.2 (test code = 753) MEAN CORPUSCULAR HEMOGLOBIN 29.8 pg 25.7-32.2 (BEAKER) (test code = 751) MEAN CORPUSCULAR HEMOGLOBIN CONC 34.3 GM/DL 32.3-36.5 (BEAKER) (test code = 752) RED CELL DISTRIBUTION WIDTH 12.5 % 11.6-14.4 (BEAKER) (test code = 412) PLATELET COUNT (BEAKER) (test 116 K/CU MM 150-450 L code = 756) MEAN PLATELET VOLUME (BEAKER) 9.9 fL 9.4-12.4 (test code = 754) NUCLEATED RED BLOOD CELLS 0 /100 WBC 0-0 (BEAKER) (test code = 413) SARS-CoV2/RT-PCR (Asymptomatic ONLY)2022-05-10 03:50:54 Test Item Value Reference Interpretation Comments Range SARS-COV2/RT-PCR Negative Negative The SARS-Co V-2 (test code = target nucleic 46076-8) acids are not detected in thi s specimen. Negat prince results do not preclude SARS-C oV-2 infection and should not be u sed as the sole bas is for patient management decisions. Nega tive results must be combined with clinical observations, patient history , and epidemiolog ical information. A false negative result may occu r if a specimen is improperly collected, transported or handled. This S ARS CoV-2 test is a rapid, real-niki e RT-PCR test intended for th e qualitative detection of nucleic acid fr om SARS-CoV-2 in a nasopharyngeal swab specimen collec loki from individual s suspected of COVID-19 by the ir healthcare provider. JUAN DAVID (test code = This test has been JUAN DAVID) authorized by FDA under an EUA for use by authorized laboratories. This test is only authorized for the duration of the declaration that circumstances exist justifying the authorization of emergency use of in vitro diagnostic tests for detection and/or diagnosis of COVID-19 under Section 564(b)(1) of the Federal Food, Drug and Cosmetic Act, 21 U.S.C. 360bbb-3(b)(1), unless the authorization is terminated or revoked sooner. Fact Sheet for Healthcare Providers: https://www.[employer]/Documents/Xp ert%20Xpress%20SAR S%20CoV-2/Fact%20S heets/302-3802%20S ARS-COV-2%20HEALTH CARE%20PROVIDERS%2 0FACT%20SHEET.pdf Fact Sheet for Healthcare Patients: https://www.[employer]/Documents/Xp ert%20Xpress%20SAR S%20CoV-2/Fact%20S heets/302-3801%20S ARS-COV-2%20PATIEN T%20FACT%20SHEET.p df Lab Interpretation Normal (test code = 75673-6) [facility])2022-05-10 03:50:54 Test Item Value Reference Range Interpretation Comments SARS-COV2/RT-PCR Negative Negative The SARS-Co V-2 target (test code = nucleic acids a re not [id number]) detected in thi s specimen. Negative result s do not preclude SARS-C oV-2 infection and s hould not be used as the daniele e basis for patient managem ent decisions. Nega tive results must be combine d with clinical observ ations, patient history , and epidemiological information. A false negativ e result may occur if a spec imen is improperly ian ected, transported or handled. This SARS CoV-2 test is a rapid, real-time RT-PC R test intended for th e qualitative detection of nu cleic acid from SARS-CoV-2 in a nasopharyngeal swab specimen collected from individuals suspected of CO VID-19 by their healthcar e provider. This test has been authorized by FDA under an EUA for use by authorized laboratories. This test is only authorized for the duration of the declaration that circumstances exist justifying the authorization of emergency use of in vitro diagnostic tests for detection and/or diagnosis of COVID-19 under Section 564(b)(1) of the Federal Food, Drug and Cosmetic Act, 21 U.S.C. 360bbb-3(b)(1), unless the authorization is terminated or revoked sooner. Fact Sheet for Healthcare Providers: https://www.Tagrule m/Documents/Xpert%20Xpress%20SARS%20CoV-2/Fact%20Sheets/302-3802%18ASSM-YYI-0%20 HEALTHCARE%20PROVIDERS%20FACT%20SHEET.pdf Fact Sheet for Healthcare Patients: https://www.SonicPollen/Documents/Xpert%20Xp ress%20SARS%20CoV-2/Fact%20Sheets/302-3801%90IBOK-MPA-3%20PATIENT%20FACT%20SHEET .pdf- XR CHEST 2 J1807-02-20 00:00:00 [facility] C[facility]OL CH[facility]NE : 1960 Sex: M FAX: Jordan Ledezma MD [phone] [place]: St: REG FAX: Ashvin Cintron MD [phone] Name: CARROL CHAMPAGNE [facility] Pranav Rodríguez : 1960 Age/S: 61/M [address] [place] [address] Unit #: [id number] Loc: [place], [place] [address]Clkr: Ashvin Carter MD Acct: [id number] Dis Date: Status: REG CLI PHONE #: [phone] Exam Date: 01/07/2022 1503 FAX #: [phone] Reason: CLL EXAMS: CPT CODE: [id number] XR CHEST 2 V 38945 PROCEDURE INFORMATION: Exam: XR Chest Exam date and time: 01/07/2022 2:51 PM Age: 61 years old Clinical indication: Pre-operative exam; Respiratory screening exam; Additional info: Cll TECHNIQUE: Imaging protocol: XR of the chest. Views: 2 views. PA and Lateral COMPARISON: DX XR CHEST 2 V 11/16/2016 2:44 PMFINDINGS: Lungs: There are normal lung volumes without [...] Jordan Juarez MD; Ashvin Carter MD Technologist: Fang Herrera RT(R) Trnscrd Date/Time/By: 01/07/2022 (1749) : By: Kobe Santiago Print D/T: S: 01/07/2022 (1749) PAGE 1 Signed Report
--- NOTE | 2022-05-14 14:41 | RAD REPORT ---
EXAM DESCRIPTION: CT - Stone Protocol - 05/14/2022 2:21 pm CLINICAL HISTORY: Abdominal pain. COMPARISON: May 08, 2022 TECHNIQUE: Computed axial tomography of the abdomen pelvis was obtained without oral or IV contrast. Lack of IV and oral contrast limits evaluation of solid organs, appendix, bowel, and vessels. Hall l reformatted images were obtained and reviewed. All CT scans are performed using dose optimization technique as appropriate and may include automated exposure control or mA/KV adjustment according to patient size. FINDINGS: Small right pleural effusion. A renal calculus is not seen. An ureteral calculus is not noted. A bladder calculus is not present. 9 x 4 centimeter fluid collection has developed posterior to the left lobe of the liver extending to the gallbladder fossa. A biliary stent is in place. Biliary tree does not appear dilated. The liver, pancreas and adrenals appear grossly normal The spleen is mildly to moderately enlarged There is no evidence of diverticulitis. Retrocecal appendix Small supraumbilical hernia Sub centimeter retroperitoneal lymph nodes. Increased density right peripheral zone prostate unchange d IMPRESSION: Negative for a genitourinary calculus 9 x 4 centimeter fluid collection posterior to the left lobe of the liver extending into the gallblad michelle fossa. This may represent a hematoma, abscess or biloma.
[2022-05-14 15:39] LABS: Absolute Lymphocytes (CBC) 1.7 K/uL (0.7-4.9); Lymphocytes % 19.2 % (15.3-44.8); MCV 87.2 fL (80-100); MPV 8.4 fL (7.6-11.3); RBC Red Blood Cell Count 5.28 M/uL (4.33-5.43)
[2022-05-14 15:56] LABS: Albumin 3.5 g/dL (3.4-5.0); Bilirubin Total 1.3 mg/dL (0.2-1.0); Potassium 3.3 mmol/L (3.5-5.1); Protein, Total 6.9 g/dL (6.4-8.2)
[2022-05-14 16:08] LABS: Urine Blood 1+ (Negative); Urine Glucose Negative (Negative); Urine Protein 3+ (Negative); Urine Specific Gravity 1.025 (1.005-1.030)
[2022-05-14] MEDS ORDERED: FAMOTIDINE 20 MG/2 ML VIAL IV ONE (16:11)
[2022-05-14] MEDS ORDERED: NA CHLORIDE 0.9% 1,000 ML ONE (16:11)
[2022-05-14 16:46] LABS: Urine Mucus Slight /HPF (None Seen); Urine RBC <5 /HPF (None Seen); Urine WBC Clump Rare /HPF (None Seen)
[2022-05-14] MEDS ORDERED: HYDROMORPHONE HCL 1 MG/ML INJ ONE (17:39)
[2022-05-14] MEDS ORDERED: CIPROFLOXACIN 400mg IV 400 MG/200 ML BAG IV ONE (17:39)
[2022-05-14 18:15] LABS: SARS-CoV-2 Antigen Rapid Res Negative (Negative)
--- NOTE | 2022-05-14 18:35 | EDPHYS ---
Physician Documentation [facility] Name: Wiley Anne Age: 61 yrs Sex: Male : 1960 Arrival Date: 05/14/2022 Time: 13:06 Bed 13 Private MD: Jordan Juarez ED Physician Giovanny Miller HPI: 05/14 14:34 This 61 yrs old Male presents to ER via Ambulatory with complaints of Abdominal Pain, snw Constipation, Urinary Retention. 14:34 The patient presents with abdominal pain that is diffuse, abdominal distention that is snw diffuse. Onset: The symptoms/episode began/occurred gradually, 2 week(s) ago, and became persistent. The symptoms do not radiate. Associated signs and symptoms: Pertinent positives: anorexia, constipation, shortness of breath, burning in chest. The symptoms are described as burning. Severity of pain: At its worst the pain was moderate severe. The patient has experienced similar episodes in the past, multiple times. multiple, had kinza, had a bile duct leak, had stent in bile duct, no po or BM, minimal gas x 9 days. Historical: - Allergies: 13:52 No Known Allergies; bm7 - Home Meds: 13:52 Imbruvica 140 mg Oral cap 3 caps once daily [Active]; montelukast 5 mg Oral chew 2 tabs bm7 once daily [Active]; Ventolin Rotahaler/Rotacaps Inhl daily [Active]; [place] 5-325 mg Oral tab 1 tab every 4-6 hours [Active]; Zofran 4 mg Oral tab 1 tab 4 times per day [Active]; Flomax 0.4 mg Oral cap 2 caps once daily [Active]; - PMHx: 13:52 CLL; LYMPHOMA; bm7 - PSHx: 13:52 Cholecystectomy; bm7 - Immunization history:: Adult Immunizations up to date, Client reports having NOT received the Covid vaccine. - Social history:: Smoking status: Patient denies any tobacco usage or history of. ROS: 17:17 Eyes: Negative for injury, pain, redness, and discharge, ENT: Negative for injury, snw pain, and discharge, Neck: Negative for injury, pain, and swelling, Cardiovascular: Negative for chest pain, palpitations, and edema. 17:17 Back: Negative for injury and pain, : Negative for injury, bleeding, discharge, and swelling, MS/Extremity: Negative for injury and deformity, Skin: Negative for injury, rash, and discoloration, Neuro: Negative for headache, weakness, numbness, tingling, and seizure, Psych: Negative for depression, anxiety, suicide ideation, homicidal ideation, and hallucinations. 17:17 Constitutional: Positive for fatigue, malaise, poor PO intake. 17:17 Respiratory: Positive for shortness of breath, on exertion. 17:17 Abdomen/GI: Positive for nausea, constipation, abdominal distension. Exam: 13:52 Head/Face: Normocephalic, atraumatic. Eyes: Pupils equal round and reactive to light, snw extra-ocular motions intact. Lids and lashes normal. Conjunctiva and sclera are non-icteric and not injected. Cornea within normal limits. Periorbital areas with no swelling, redness, or edema. ENT: Nares patent. No nasal discharge, no septal abnormalities noted. Tympanic membranes are normal and external auditory canals are clear. Oropharynx with no redness, swelling, or masses, exudates, or evidence of obstruction, uvula midline. Mucous membranes moist. Neck: Trachea midline, no thyromegaly or masses palpated, and no cervical lymphadenopathy. Supple, full range of motion without nuchal rigidity, or vertebral point tenderness. No Meningismus. Chest/axilla: Normal chest wall appearance and motion. Nontender with no deformity. No lesions are appreciated. Cardiovascular: Regular rate and rhythm with a normal S1 and S2. No gallops, murmurs, or rubs. Normal PMI, no JVD. No pulse deficits. Respiratory: Lungs have equal breath sounds bilaterally, clear to auscultation and percussion. No rales, rhonchi or wheezes noted. No increased work of breathing, no retractions or nasal flaring. Back: No spinal tenderness. No costovertebral tenderness. Full range of motion. Skin: Warm, dry with normal turgor. Normal color with no rashes, no lesions, and no evidence of cellulitis. MS/ Extremity: Pulses equal, no cyanosis. Neurovascular intact. Full, normal range of motion. Neuro: Awake and alert, GCS 15, oriented to person, place, time, and situation. Cranial nerves II-XII grossly intact. Motor strength 5/5 in all extremities. Sensory grossly intact. Cerebellar exam normal. Normal gait. Psych: Awake, alert, with orientation to person, place and time. Behavior, mood, and affect are within normal limits. 13:52 Constitutional: The patient appears alert, awake, in obvious distress, mildly distressed. 13:52 Abdomen/GI: Inspection: distension, that is moderate, Palpation: mild abdominal tenderness, in all quadrants, in the suprapubic area and right lower quadrant. Vital Signs: 13:51 BP 137 / 85; Pulse 88; Resp 16; Temp 97.2(TE); Pulse Ox 98% on R/A; Weight 58.97 kg bm7 (R); Height 5 ft. 2 in. (157.48 cm); Pain 6/10; 16:00 BP 143 / 90; Pulse 91; Resp 17; Pulse Ox 99% ; Pain 8/10; jh6 17:00 BP 151 / 96; Pulse 90; Resp 17; Pulse Ox 94% ; Pain 8/10; jh6 18:58 BP 140 / 93; Pulse 93; Resp 17; Pulse Ox 100% ; Pain 0/10; jh6 13:51 Body Mass Index 23.78 (58.97 kg, 157.48 cm) bm7 MDM: 13:17 Patient medically screened. snw 16:29 Data reviewed: vital signs, nurses notes. Data interpreted: Pulse oximetry: on room air snw is 98 %. Interpretation: normal. Counseling: I had a detailed discussion with the patient and/or guardian regarding: the historical points, exam findings, and any diagnostic results supporting the discharge/admit diagnosis, lab results, radiology results. Physician consultation: Steffen Hernandez MD was called at 16:00, was contacted at 16:00, regarding consult, patient's condition, in the emergency department to see patient at 16:20. 17:08 ED course: Dr. Hernandez at . Pt notified the biloma needs percutaneous drainage.. snw 18:32 Physician consultation: Dr. Price was contacted at 18:33, regarding regarding snw transfer, Dr. Price kindly accepts pt in transfer. 21:27 ED course: Sleeping in no distress, vital signs stable. snw 05/14 14:00 Order name: Urine Microscopic Only; Complete Time: 17:00 snw 05/14 14:00 Order name: CBC with Diff; Complete Time: 15:42 snw 05/14 14:00 Order name: CT Stone Protocol; Complete Time: 14:49 snw 05/14 14:00 Order name: CMP; Complete Time: 16:00 snw 05/14 16:09 Order name: Urine Dipstick-Ancillary; Complete Time: 16:12 EDMS 05/14 17:14 Order name: SARS-COV-2 Antigen Rapid; Complete Time: 18:17 bd 05/14 14:00 Order name: Bladder Scanner; Complete Time: 16:09 snw Administered Medications: 16:09 Drug: NS 0.9% 1000 ml Route: IV; Rate: 125 ml/hr; Site: left antecubital; 16:09 Drug: Pepcid (famotidine) 20 mg Route: IVP; Site: left antecubital; 16:31 Drug: NS 0.9% 1000 ml Route: IV; Rate: 1 bolus; Site: left antecubital; [facility] 17:31 Drug: Dilaudid (HYDROmorphone) 1 mg Route: IVP; Site: left antecubital; [facility] 18:58 Follow up: Response: Marked relief of symptoms [facility] 17:31 Drug: Cipro (ciprofloxacin) 400 mg Volume: 200 ml; Route: IVPB; Infused Over: 60 mins; [facility] Site: left antecubital; 18:58 Follow up: Response: No adverse reaction [facility] 21:50 Drug: Zofran (Ondansetron) 4 mg Route: IVP; Site: left antecubital; ja4 Disposition Summary: 05/14/22 18:34 Transfer Ordered Transfer Location: [facility] snw Reason: Higher level of care snw Condition: Stable snw Problem: an acute exacerbation snw Symptoms: have worsened snw Accepting Physician: Dr. Price(05/14/22 21:51) jaJohn Diagnosis - Biloma snw - Abdominal pain, Generalized snw Forms: - Medication Reconciliation Form snw - SBAR form snw Signatures: Dispatcher [employer] EDMS Natalia Rivas FNP-C ORTHOPEDIC PHYSICAL THERAPIST-Csnw Stacey Victoria RN RN ss Emily Young, RN RN [email or web address] Francisca Chaidez RN RN jh6 Samuel Beck RN RN ja4 Corrections: (The following items were deleted from the chart) 18:34 18:34 Dr. Merchant bandar portillo 21:51 18:34 Dr. Merchant portillo ja4
--- NOTE | 2022-05-14 18:35 | ER ---
Nurse's Notes [facility] Name: Wiley Anne Age: 61 yrs Sex: Male : 1960 Arrival Date: 05/14/2022 Time: 13:06 Bed 13 Private MD: Jordan Juarez Diagnosis: Biloma;Abdominal pain, Generalized Presentation: 05/14 13:51 Chief complaint: Patient states: Since my gallbladder surgery ten days ago I haven't bm7 been able to have a bowel movement and I am having a hard time peeing. Coronavirus screen: At this time, the client does not indicate any symptoms associated with coronavirus-19. Ebola Screen: No symptoms or risks identified at this time. Initial Sepsis Screen: Does the patient meet any 2 criteria? No. Patient's initial sepsis screen is negative. Does the patient have a suspected source of infection? No. Patient's initial sepsis screen is negative. Risk Assessment: Do you want to hurt yourself or someone else? Patient reports no desire to harm self or others. Onset of symptoms is unknown. 13:51 Method Of Arrival: Ambulatory 7 13:51 Acuity: JASMIN 3 bm7 Triage Assessment: 13:52 General: Appears in no apparent distress. uncomfortable, well groomed, well developed, bm7 Behavior is calm, cooperative, appropriate for age. Pain: Complains of pain in abdomen. EENT: No deficits noted. No signs and/or symptoms were reported regarding the EENT system. Neuro: No deficits noted. Cardiovascular: No deficits noted. Respiratory: No deficits noted. GI: Abdomen is round distended, Abd is soft X 4 quads Abdomen is tender to palpation X 4 quads. Reports lower abdominal pain, upper abdominal pain, bloating, constipation, gaseousness. : Reports inability to void. Derm: No deficits noted. No signs and/or symptoms reported regarding the dermatologic system. Musculoskeletal: No deficits noted. No signs and/or symptoms reported regarding the musculoskeletal system. Historical: - Allergies: 13:52 No Known Allergies; bm7 - Home Meds: 13:52 Imbruvica 140 mg Oral cap 3 caps once daily [Active]; montelukast 5 mg Oral chew 2 tabs bm7 once daily [Active]; Ventolin Rotahaler/Rotacaps Inhl daily [Active]; [place] 5-325 mg Oral tab 1 tab every 4-6 hours [Active]; Zofran 4 mg Oral tab 1 tab 4 times per day [Active]; Flomax 0.4 mg Oral cap 2 caps once daily [Active]; - PMHx: 13:52 CLL; LYMPHOMA; bm7 - PSHx: 13:52 Cholecystectomy; bm7 - Immunization history:: Adult Immunizations up to date, Client reports having NOT received the Covid vaccine. - Social history:: Smoking status: Patient denies any tobacco usage or history of. Screenin:30 Abuse screen: Denies threats or abuse. Denies injuries from another. Nutritional jh6 screening: No deficits noted. 15:30 Tuberculosis screening: No symptoms or risk factors identified. Fall Risk IV access (20 jh6 points). Assessment: 15:34 General: Appears uncomfortable, Behavior is calm, cooperative. jh6 15:34 Pain: Complains of pain in epigastric area and suprapubic area Pain currently is 8 out jh6 of 10 on a pain scale. Quality of pain is described as sharp, shooting, Pain began 2-3 days ago. Is intermittent, Aggravated by unable to void. GI: Abdomen is flat, Bowel sounds present X 4 quads. Reports upper abdominal pain, having difficulty voiding. 16:30 Reassessment: No changes from previously documented assessment. placed Brambila and was jh6 able to get 550 urine out. pt stated that pressure and pain to lower abd was decreased after Brambila placed. 18:45 Reassessment: Patient and/or family updated on plan of care and expected duration. Pain jh6 level reassessed. Vital Signs: 13:51 BP 137 / 85; Pulse 88; Resp 16; Temp 97.2(TE); Pulse Ox 98% on R/A; Weight 58.97 kg bm7 (R); Height 5 ft. 2 in. (157.48 cm); Pain 6/10; 16:00 BP 143 / 90; Pulse 91; Resp 17; Pulse Ox 99% ; Pain 8/10; jh6 17:00 BP 151 / 96; Pulse 90; Resp 17; Pulse Ox 94% ; Pain 8/10; jh6 18:58 BP 140 / 93; Pulse 93; Resp 17; Pulse Ox 100% ; Pain 0/10; jh6 13:51 Body Mass Index 23.78 (58.97 kg, 157.48 cm) bm7 ED Course: 13:06 Patient arrived in ED. mr 13:06 Jordan Juarez MD is Private Physician. mr 13:16 [facility]C [facility] snw 13:16 Giovanny Miller MD is Attending Physician. snw 13:52 Triage completed. bm7 13:52 Arm band placed on left wrist. Patient placed in waiting room, Patient notified of wait bm7 time. 14:23 CT Stone Protocol In Process Unspecified. EDMS 15:33 Stacey Victoria, RN is Primary Nurse. ss 15:35 Inserted saline lock: 20 gauge in left forearm, using aseptic technique. Blood kc6 collected. 15:35 CMP Sent. kc6 15:36 CBC with Diff Sent. kc6 16:09 Stacey Victoria, RN is Primary Nurse. ss 17:21 initiated transfer to [facility]. bd 17:32 SARS-COV-2 Antigen Rapid Sent. kc6 19:00 No provider procedures requiring assistance completed. jh6 21:11 Report given to darrell deluca at. [facility] Administered Medications: 16:09 Drug: NS 0.9% 1000 ml Route: IV; Rate: 125 ml/hr; Site: left antecubital; ss 16:09 Drug: Pepcid (famotidine) 20 mg Route: IVP; Site: left antecubital; ss 16:31 Drug: NS 0.9% 1000 ml Route: IV; Rate: 1 bolus; Site: left antecubital; jh6 17:31 Drug: Dilaudid (HYDROmorphone) 1 mg Route: IVP; Site: left antecubital; jh6 18:58 Follow up: Response: Marked relief of symptoms jh6 17:31 Drug: Cipro (ciprofloxacin) 400 mg Volume: 200 ml; Route: IVPB; Infused Over: 60 mins; 6 Site: left antecubital; 18:58 Follow up: Response: No adverse reaction 6 21:50 Drug: Zofran (Ondansetron) 4 mg Route: IVP; Site: left antecubital; ja4 Outcome: 18:34 ER care complete, transfer ordered by . snw 21:50 Transferred by ground EMS ja4 21:50 Condition: good 21:51 Patient left the ED. ja4 Signatures: Dispatcher [employer] EDMS Candida Canela Shelly, CHIEF OPERATOR HYDROFORMER-C CHIEF OPERATOR HYDROFORMER-Csnw Baron, Nancy mr Stacey Victoria, RN RN ss Emily Young, RN RN bm7 Francisca Chaidez RN RN jh6 Sandy Barnes6 Samuel Beck RN RN ja4
[2022-05-14] MEDS ORDERED: ONDANSETRON 4 MG/2 ML VIAL ONE (21:56)
[2022-05-15 01:29] VITALS: TEMP 97.2
[2022-05-15 01:51] VITALS: BP 140/93; O2SAT 100
== END 2022-05-14 21:51 | disposition short-term general hospital (02) ==
LOC: ER 13:03
DX: R10.84 Generalized abdominal pain (principal); K83.8 Other specified diseases of biliary tract; Z90.49 Acquired absence of other specified parts of digestive tract; Z20.822 Contact with and (suspected) exposure to COVID-19
CPT/HCPCS: 85025; 36415; 80053; 76377; 74176; 96375; 96374; 99285; 87811; J1170; J7030; J2405; J0744; 81003; 81015

== ENCOUNTER 2022-05-29 11:15 | Emergency (ER) | payer OTHER ==
--- OUTSIDE RECORDS SUMMARY | 2022-05-29 11:22 | XMS REPORT | Continuity of Care Document ---
:1960 Author Organization [facility] t Address [address] [place] [address] Care Team Providers Name Role Phone RADHA OTTO Attending Clinician Unavailable GENARO REED Attending Clinician Unavailable Merchant PORRAS, Ayo Attending Clinician Isidro Pappas MD Attending Clinician Genaro Reed MD Attending Clinician [phone] Georgiana Clarke MD Attending Clinician AYO PARRISH Attending Clinician Unavailable SANDRA CORDERO Attending Clinician Unavailable Yue Moulton MD Attending Clinician Sandra Cordero MD Attending Clinician Holly Martinez MD Attending Clinician Fernanda PORRAS, David Moralez Attending Clinician Radha Otto Attending Clinician Ashvin Carter Attending Clinician Unavailable RADHA OTTO Admitting Clinician Unavailable GEORGIANA CLARKE Admitting Clinician Unavailable SANDRA CORDERO Admitting Clinician Unavailable YUE MOULTON Admitting Clinician Unavailable Jordan Juarez Admitting Clinician Unavailable Payers Payer Name Policy Type Policy Number Effective Date Expiration Date Markell CUEVAS [id number] 2021 00:00:00 Problems Condition Condition Condition Status Onset Resolution Last Treating Co mments Source Name Details Category Date Date Treatment Clinician Date Biloma Bil[facility] [place] Bile leak Bile leak Disease [facility] 00 [place] Biliary Biliary Disease Active [facility] anastomoti anastomoti 9-05 Brandi kes c leak c leak 00:00: Medical 00 [place] Pneumonia Pneumonia Disease Active 2015-[address] of both of both 2 [facility] lower lower 00:00: Medical lobes due lobes due 00 Cent er to to infectious infectious organism organism Hyponatrem Hyponatrem Disease Active 2015-[address] ia ia 2 [facility] 00:[facility]: Medical 00 [place] 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 2 Brandi kes ban ban 00:00: Medical 00 [place] SIRS SIRS Disease Active 2015-[address] (systemic (systemic 2 Luke s inflammato inflammato 00:00: Me dical ry ry 00 Center response response syndrome) syndrome) Lymphoma, Lymphoma, Disease Active 2015-[address] low grade low grade 2 Luke s 00:00: Medical 00 [place] Weakness Weakness Disease Active 2015-09 [facility] 00:[facility]: Medical 00 [place] Anemia Anemia Disease Active 2015-[address] [facility] 00[facility] Medical 00 Center Thrombocyt Thrombocyt Disease Active 2015-[address] openia openia 2 [facility] 00:[facility]: Medical 00 Center Shortness Shortness Disease Active 2015-[address] of breath of breath 2 Luke s 00:00: Medical 00 Center Other Other Problem Active Common chronic chronic Spirit pain pain - [facility] [place] Allergic Allergic Problem Active Commo n rhinitis, rhinitis, Spir it seasonal seasonal - [facility] Essential Essential Problem Active Com mon (primary) (primary) Spir it hypertensi hypertensi - [facility] on on [place] Paresthesi Paresthesi Problem Active C ommon a of skin a of skin Spir it - [facility] Scratched Scratched Problem Active Com mon by cat, by cat, Spirit initial initial - [facility] encounter encounter [place] Asthmatic Asthmatic Problem Active Com mon bronchitis bronchitis Sp epifanio - [facility] CLL CLL Problem Active Common (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Spirit lymphocyti lymphocyti - [facility] c c leukemia) leukemia) [facility] Tenosynovi Tenosynovi Diagnosis Active Common tis of tis of Spirit left ankle left ankle - [facility] Pain in Pain in Diagnosis Active Commo n left ankle left ankle Sp epifanio and joints and joints - CHI of left of left St foot foot [facility] Sprain of Sprain of Diagnosis Active C ommon other other Spirit ligament ligament - [facility] of left of left ankle, ankle, [facility] Allergies, Adverse Reactions, Alerts Allergy Allergy Status Severity Reaction(s) Onset Inactive Treating Comm ents Source Name Type Date Date Clinician No Known DA Active [facility] Allergie 10-05 Clear s 00:00: Rodríguez 00 [facility] NO KNOWN Allergy Active SLE ALLERGIE S Ondanset Adverse Active Info Not Commo n becca Reaction Available Spiri t - [facility] Lisinopr Adverse Active headache, Comm on il Reaction numbness/tin Sp epifanio gling to R - [facility] arm [place] Hydrocod Adverse Active Info Not Commo n one-Acet Reaction Available Spi rit aminophe - [facility] Social History Social Habit Start Date Stop Date Quantity Comments Source History [facility] Transport Non-Med Medical Center History [facility] Housing Places Medical Ce nter Lived Alcohol intake 2022-05-11 2022-05-11 Current [facility] es 00:00:00 00:00:00 non-drinker of Medical Ce nter alcohol (finding) History [facility] 2022-05-10 2022-05-10 2 [facility] Housing Unable to 00:00:00 00:00:00 Medical Center Pay History [facility] 2022-05-10 2022-05-10 [facility]:00 00:00:00 Medical Center Last Year History [facility] 2022-05-10 2022-05-[address] [facility] Transport Med 00:00:00 00:00:[address] Tobacco use and 2016-08-05 2016-08-[address] Brandi kes exposure 00:00:00 00:00:00 Medical Center Sex Assigned At [address] Brandi kes 00:00:00 00:00:00 Medical Center Smoking Status Start Date Stop Date Source Never [facility] Medications Ordered Filled Start Stop Current Ordering Indication Dosage Frequency Signature Comments Components Source Medication Medication Date Date Medication? Clinician (SIG) Name Name ibrutinib Yes 420mg QD Take [address] (Imbruvica) 9-15 mg by [facility] 420 mg Tab 18:01: mouth Medica l 05 daily. Center ondansetron 2021- No 4mg Take [address] (ZOFRAN-ODT 05-19 tablet (4 Brandi kes ) 4 MG 00:00: 23:59 mg total) Medic al disintegrat 00 :00 by mouth Cent er ing tablet every 8 (eight) hours as needed for Nausea for up to 7 days. amoxicillin 2021- No 1{tbl} Q.5D Take [address] -clavulanat 05-19 tablet by Brandi sarah 00:00: 23:59 mouth 2 Medical (AUGMENTIN) 00 :00 (two) Center 875-125 mg times per tablet daily for 5 days. tamsulosin 2021- Yes .8mg QD Take [address] (FLOMAX) 05-11 capsules [facility]ukes 0.4 mg Cap 00:00: 23:59 (0.8 mg Med ical 24 hr 00 :00 total) by Center capsule mouth daily for 90 days. tamsulosin 2021- Yes .8mg QD Take [address] (FLOMAX) 05-11 capsules [facility]ukes 0.4 mg Cap 00:00: 23:59 (0.8 mg Med ical 24 hr 00 :00 total) by Center capsule mouth daily for 90 days. HYDROcodone 2021- No 1{tbl} Take [address] -acetaminop 05-11 tablet by Bradni akers hen (NORCO 00:00: 00:00 mouth Medic al 5-325) 00 :00 every 6 Center 5-325 mg (six) per tablet hours as needed for up to 7 days. Max Daily Amount: 4 tablets ondansetron 2021- No 4mg Take [address] (ZOFRAN-ODT 05-11 tablet (4 Brandi kes ) 4 MG 00:00: 00:00 mg total) Medic al disintegrat 00 :00 by mouth Cent er ing tablet every 8 (eight) hours as needed for Nausea for up to 7 days. HYDROcodone 2021- Yes 1{tbl} Take [address] -acetaminop 05-11 tablet by Brandi kes hen (NORCO 00:00: 23:59 mouth Medic al 5-325) 00 :00 every 6 Center 5-325 mg (six) per tablet hours as needed for up to 7 days. Max Daily Amount: 4 tablets ondansetron 2021- Yes 4mg Take [address] (ZOFRAN-ODT 05-11 tablet (4 Brandi kes ) 4 MG 00:00: 23:59 mg total) Medic al disintegrat 00 :00 by mouth Cent er ing tablet every 8 (eight) hours as needed for Nausea for up to 7 days. Ibrutinib Ibrutinib Yes Kosta 1 tablet Common 4-11 Kamara Spirit 00:00: - 00 [place] Fluticasone Fluticasone Yes [place]osta 1 spray in Common Propionate Propionate Kamara each Spi rit nostril [facility] ProAir ProAir Yes Kosta 2 puffs as Co mmon RespiClick RespiClick Kamara needed S pirit [facility] Vitamin Vitamin Yes [place] not Common B-12 B-12 Kamara defined [facility] Centrum Centrum Yes [place] not Common Adults Adults Kamara defined [facility] Allopurinol Allopurinol Yes Kosta 1 tablet Common Kamara [facility] Vital Signs Vital Name Observation Time Observation Value Comments Source WEIGHT 2022-05-14 23:49:00 57.788 kg WEIGHT 2022-05-14 23:49:00 57.788 kg WEIGHT 2022-05-14 23:49:00 57.788 kg Systolic blood 2022-05-19 11:33:00 133 mm[Hg] [facility] Diastolic blood 2022-05-19 11:33:00 74 mm[Hg] [facility] Heart rate 2022-05-19 11:33:00 80 /min [facility] Body temperature 2022-05-19 11:33:00 36.17 Yamilex [facility] Respiratory rate 2022-05-19 11:33:00 18 /min [facility] Oxygen saturation in 2022-05-19 11:33:00 97 /min [facility] Arterial blood by Medical Ce nter Pulse oximetry Body weight 2022-05-14 23:49:00 57.788 kg [facility] BMI 2022-05-14 23:49:00 23.30 kg/m2 [facility] Systolic blood 2022-05-11 15:14:00 132 mm[Hg] [facility] Diastolic blood 2022-05-11 15:14:00 84 mm[Hg] [facility] Heart rate 2022-05-11 15:14:00 89 /min [facility] Body temperature 2022-05-11 15:14:00 37.11 [facility] Respiratory rate 2022-05-11 15:14:00 18 /min [facility] Oxygen saturation in 2022-05-11 15:14:00 94 /min [facility] Arterial blood by Medical Ce nter Pulse oximetry Procedures Procedure Date / Time Performing Clinician Source Performed CBC W/PLT COUNT & AUTO 2022-05-19 04:18:00 Isidro Pappas [facility] COMPREHENSIVE METABOLIC 2022-05-19 04:18:00 Mian Isidro [facility] CBC W/PLT COUNT & AUTO 2022-05-19 04:18:00 Mian Isidro [facility] CBC W/PLT COUNT & AUTO 2022-05-18 03:21:00 Isidro Pappas [facility] COMPREHENSIVE METABOLIC 2022-05-18 03:21:00 Isidro Pappas [facility] CBC W/PLT COUNT & AUTO 2022-05-18 03:21:00 Mian [facility] BODY FLUID CULTURE + GRAM 2022-05-17 16:45:00 Mian [facility] IR TUNNELED DRAINAGE 2022-05-17 16:22:00 Mian [facility] CATHETER PLACEMENT Medical Cente r CBC W/PLT COUNT & AUTO 2022-05-17 05:15:00 Mian [facility] COMPREHENSIVE METABOLIC 2022-05-17 05:15:00 Mian [facility] PROTHROMBIN TIME/INR 2022-05-17 05:15:00 Mian [facility] CBC W/PLT COUNT & AUTO 2022-05-17 05:15:00 [facility] & 2022-05-15 04:37:00 Georgiana Clarke [facility] REF LABS) Medical Center TYPE AND SCREEN, AUTOMATED 2022-05-15 01:25:00 Georgiana Clarke [facility] BASIC METABOLIC PANEL (7) 2022-05-15 01:24:00 Georgiana Clarke sa [facility] HEPATIC FUNCTION PANEL 2022-05-15 01:24:00 Georgiana Clarke [facility] PROTHROMBIN TIME/INR 2022-05-15 01:24:00 Georgiana Clarke [facility] PHOSPHORUS 2022-05-15 01:24:00 Georgiana Clarke [facility] MAGNESIUM 2022-05-15 01:24:00 Georgiana Clarke [facility] CBC W/PLT COUNT & AUTO 2022-05-15 01:24:00 Georgiana Clarke [facility] CBC W/PLT COUNT & AUTO 2022-05-15 01:24:00 Georgiana Clarke [facility] BASIC METABOLIC PANEL (7) 2022-05-11 03:30:00 Sandra Cordero [facility] CBC W/PLT COUNT & AUTO 2022-05-11 03:30:00 Mookie [facility] MAGNESIUM 2022-05-11 03:30:00 Mookie [facility] HEPATIC FUNCTION PANEL 2022-05-11 03:30:[address] [facility] LIPID PANEL 2022-05-11 03:30:00 Mookie [facility] CBC W/PLT COUNT & AUTO 2022-05-11 03:30:[address] Mookie [facility] CT ABDOMEN/PELVIS WITH IV 2022-05-10 19:08:00 Yohannesmendez [facility] REPORT OF PROCEDURE - 2022-05-10 14:45:00 Fam [facility] ENDOSCOPY [facility] ENDOSCOPIC RETROGRADE 2022-05-10 08:00:00 [facility] CHOLANGIOPANCREATOGRAPHY, [facility] WITH SPHINCTEROTOMY ENDOSCOPIC RETROGRADE 2022-05-10 08:00:00 [facility] WITH BILE DUCT STENT INSERTION ENDOSCOPIC RETROGRADE 2022-05-10 08:00:00 [facility] WITH BALLOON SWEEP OF BILE DUCTS PROCEDURE W/ C-ARM 2022-05-10 08:00:00 [facility] CBC (HEMOGRAM ONLY) 2022-05-10 03:20:00 [facility] COMPREHENSIVE METABOLIC 2022-05-10 03:20:[address] [facility] SARS-COV2/RT-PCR ([facility] & 2022-05-09 17:00:00 Holly Martinez [facility] REF LABS) [facility] Plan of Care Planned Activity Planned Date Details Comments Source Future Scheduled Test 2027-05-11 Lipid panel [facility] 00:00:00 (procedure) [code = Medical Center 43236932] Future Scheduled Test 2027-05-[address] [facility] 00:00:00 (procedure) [code = [facility] [id number]] Future Scheduled Test 2022-05-06 INFLUENZA VACCINE (#1) [facility] 00:00:00 [code = INFLUENZA Medical Ce nter VACCINE (#1)] Future Scheduled Test 2022-05-06 INFLUENZA VACCINE (#1) [facility] 00:00:00 [code = INFLUENZA Medical Ce nter VACCINE (#1)] Future Scheduled Test 2021-09-[address] [facility] 00:00:00 (12+) [code = Medical Center DEPRESSION SCREENING (12+)] Future Scheduled Test 2021-09-[address] [facility] 00:00:00 (12+) [code = [facility] DEPRESSION SCREENING (12+)] Future Scheduled Test 2009-12-24 SHINGLES VACCINES ([address] [facility] 00:00:00 of 2) [code = SHINGLES Medic al Center VACCINES (1 of 2)] Future Scheduled Test 2009-12-24 SHINGLES VACCINES ([address] [facility] 00:00:00 of 2) [code = SHINGLES Medic al Center VACCINES (1 of 2)] Future Scheduled Test 1978-12-24 DTAP/TDAP/TD VACCINES [facility] 00:00:00 (1 - Tdap) [code = Medical C enter DTAP/TDAP/TD VACCINES (1 - Tdap)] Future Scheduled Test 1978-12-24 DTAP/TDAP/TD VACCINES [facility] 00:00:00 (1 - Tdap) [code = Medical C enter DTAP/TDAP/TD VACCINES (1 - Tdap)] Future Scheduled Test 1965-12-[address] [facility] 00:00:00 0-64 YRS (1 - PCV) Medical C enter [code = PNEUMOCOCCAL VACCINE 0-64 YRS (1 - PCV)] Future Scheduled Test 1965-12-[address] [facility] 00:00:00 0-64 YRS (1 - PCV) Medical C enter [code = PNEUMOCOCCAL VACCINE 0-64 YRS (1 - PCV)] Future Scheduled Test 1960-06-25 COVID-19 VACCINE (#1) [facility] 00:00:00 [code = COVID-[address] VACCINE (#1)] Future Scheduled Test 1960-06-25 COVID-19 VACCINE (#1) [facility] 00:00:00 [code = COVID-[address] VACCINE (#1)] Future Scheduled Test [address] [facility] 00:00:00 (combo) [code = CT Medical C enter Colonography (combo)] Future Scheduled Test 1960 [facility] malignant neoplasm of Medica l Center colon (procedure) [code = 104317629] Future Scheduled Test 1960 [facility] malignant neoplasm of Medica l Center colon (procedure) [code = 144677001] Future Scheduled Test 1960 [facility] malignant neoplasm of Medica l Center colon (procedure) [code = 204136220] Future Scheduled Test 1960 [facility]00 malignant neoplasm of Medica l Center colon (procedure) [code = 599919162] Future Scheduled Test 1960 Sigmoidoscopy [code = [facility] 00:00:00 Sigmoidoscopy] Medical Modesta r Future Scheduled Test [address] [facility] 00:00:00 (combo) [code = CT Medical C enter Colonography (combo)] Future Scheduled Test 1960 [facility] malignant neoplasm of Medica l Center colon (procedure) [code = 252705628] Future Scheduled Test 1960 [facility]:00 malignant neoplasm of Medica l Center colon (procedure) [code = 099987253] Future Scheduled Test 1960 [facility]:00 malignant neoplasm of Medica l Center colon (procedure) [code = 626202464] Future Scheduled Test 1960 [facility]:00 malignant neoplasm of Medica l Center colon (procedure) [code = 929414729] Future Scheduled Test 1960 Sigmoidoscopy [code = [facility] 00:00:00 Sigmoidoscopy] Medical Cente r Future Appointment 2022-06-09 Radha Keihanian, [address] 11:30:00 [place]; Daniel [address], [place] [address] Future Appointment 2022-06-09 Radha Yohannesmeaganmendezn, [address] [facility] 11:30:00 [place]; Daniel [address], [place] [address] Future Appointment 2022-06-09 Radha Lopezmendezn, [address] [facility] 11:30:00 [place]; Daniel [address], [place] [address] Future Appointment 2022-06-09 Radha Yohannesihanian, [address] [facility] 11:30:00 [place]; Daniel [address], [place] [address] Procedure 2022-06-[address] [facility] 11:30:00 CHOLANGIOPANCREATOGRAP Medic [facility], WITH STENT REMOVAL Encounters Start End Encounter Admission Attending Care Care Encounter Source Date/Time Date/Time Type Type Clinicians Facility Department ID 2022-05-14 Outpatient LOIS OTTO [facility] Surgery [id number] [facility] 12:12:34 RADHA 2022-05-14 2022-05-19 Inpatient ER CHRISTEN [facility] Inter Rad [id number] [facility] 23:13:00 18:01:00 [facility] 2022-05-14 2022-05-19 [facility] Ayo [facility] [id number] [facility] 23:13:00 18:01:00 [facility] [place] 2022-05-09 2022-05-11 Inpatient UR ISIDRO CORDERO [facility] [id number] [facility] 13:34:00 16:33:00 SANDRA 2022-05-09 2022-05-11 [facility] Yue Moulton [facility] [id number] 13:34:00 16:33:00 [facility] 2022-05-11 [facility] UR Yue Moulton [facility] [id number] 13:34:00 16:33:00 [facility] 2022-[facility]-10 2022-05-10 Anesthesia David Michael [facility] [id number] 08:25:00 10:25:00 Event [facility] 2022-05-10 2022-05-10 Anesthesia David Michael [facility] [id number] 08:25:00 10:25:00 Event [facility] 2022-05-10 2022-05-10 Surgery Fam [facility] [id number] 08:00:00 09:14:00 [facility] 2022-05-10 2022-05-10 Surgery Fam [facility] [id number] 08:00:00 09:14:00 [facility] 2022-05-09 2022-05-09 Outpatient BCM BC [id number] [facility] 13:34:00 23:59:00 [facility] 2022-01-07 2022-01-07 Outpatient LOIS Carter [facility] [id number] [facility] 14:41:00 14:41:[address] [place] [address] 2018-10-23 2018-10-23 Out[facility] [id number] Common 09:00:00 09:00:00 [facility] Joint - [facility] 2018-09-06 2018-09-06 Out[facility] [id number] Common 16:13:00 16:13:00 t [facility] [address] Family - [facility] 2018-08-23 2018-08-23 [facility] [id number] Common 14:30:00 14:30:00 t [facility] Sp[facility] Joint - [facility] 2018-08-22 2018-08-22 Out[facility] [id number] Common 15:00:00 15:00:00 t [facility] t [facility] Joint - [facility] Results Test Description Test Time Test Comments Results Result Comments Source Body fluid culture + gram stain 2022-05-20 20:31:19 Test Item Value Reference Range Interpretation Comme nts Result (test code = 6463-4) No growth Gram Stain Result (test code = 1123) No organisms seen [facility] [id number] 20:31:19 Test Item Value Reference Range Interpretation Comments CULTURE (BEAKER) (test code No growth = 1095) GRAM STAIN RESULT (BEAKER) <1+ WBCs (test code = 1123) GRAM STAIN RESULT (BEAKER) No organisms seen (test code = 75590) COMPREHENSIVE METABOLIC [id number] 05:27:55 Test Item Value Reference Range Interpretation Comments TOTAL PROTEIN 5.9 gm/dL 6.0-8.3 L (BEAKER) (test code = 770) ALBUMIN (BEAKER) 3.6 g/dL 3.5-5.0 (test code = 1145) ALKALINE 225 U/L 40-150 H PHOSPHATASE (BEAKER) (test code = 346) BILIRUBIN TOTAL 0.6 mg/dL 0.2-1.2 (BEAKER) (test code = 377) SODIUM (BEAKER) 138 meq/L 136-145 (test code = 381) POTASSIUM (BEAKER) 3.6 meq/L 3.5-5.1 (test code = 379) CHLORIDE (BEAKER) 103 meq/L 98-107 (test code = 382) CO2 (BEAKER) (test 25 meq/L 22-29 code = 355) BLOOD UREA 9 mg/dL 7-21 NITROGEN (BEAKER) (test code = 354) CREATININE 0.81 mg/dL 0.57-1.25 (BEAKER) (test code = 358) GLUCOSE RANDOM 97 mg/dL 70-105 (BEAKER) (test code = 652) CALCIUM (BEAKER) 9.0 mg/dL 8.4-10.2 (test code = 697) AST (SGOT) 14 U/L 5-34 (BEAKER) (test code = 353) ALT (SGPT) 15 U/L 6-55 (BEAKER) (test code = 347) EGFR (BEAKER) 100 Interpretatio n of eGFR (test code = 1092) mL/min/1.[address] age Description sq m Result G1 Raven l or high >=90 G2 Mildly decreased 60-89 G3a Mildl y to moderately 45-5 9 G3b Moderately to s everely 30-44 G4 Severl y decreased 15-29 G5 Kidney failure <15Reported eGF R is based on the CKD-EPI 202 equation that d oes not use a race coefficientEsti mated GFR is not as accur ate as Creatinine Shazia samuels in predicting glom erular filtration rate . Estimated GFR is not appl icable for dialysis patien ts Rabies Inspector ID - MERRY [facility] W/PLT COUNT & AUTO [id number] 05:18:09 Test Item Value Reference Range Interpretation Comments WHITE BLOOD CELL COUNT (BEAKER) 5.0 K/ L 3.5-10.5 (test code = 775) RED BLOOD CELL COUNT (BEAKER) 4.72 M/ L 4.63-6.08 (test code = 761) HEMOGLOBIN (BEAKER) (test code = 14.3 GM/DL 13.7-17.5 410) HEMATOCRIT (BEAKER) (test code = 39.6 % 40.1-51.0 L 411) MEAN CORPUSCULAR VOLUME (BEAKER) 83.9 fL 79.0-92.2 (test code = 753) MEAN CORPUSCULAR HEMOGLOBIN 30.3 pg 25.7-32.2 (BEAKER) (test code = 751) MEAN CORPUSCULAR HEMOGLOBIN CONC 36.1 GM/DL 32.3-36.5 (BEAKER) (test code = 752) RED CELL DISTRIBUTION WIDTH 12.3 % 11.6-14.4 (BEAKER) (test code = 412) PLATELET COUNT (BEAKER) (test 177 K/CU MM 150-450 code = 756) MEAN PLATELET VOLUME (BEAKER) 10.4 fL 9.4-12.4 (test code = 754) NUCLEATED RED BLOOD CELLS 0 /100 WBC 0-0 (BEAKER) (test code = 413) NEUTROPHILS RELATIVE PERCENT 55 % (BEAKER) (test code = 429) LYMPHOCYTES RELATIVE PERCENT 32 % (BEAKER) (test code = 430) MONOCYTES RELATIVE PERCENT 9 % (BEAKER) (test code = 431) EOSINOPHILS RELATIVE PERCENT 3 % (BEAKER) (test code = 432) BASOPHILS RELATIVE PERCENT 1 % (BEAKER) (test code = 437) NEUTROPHILS ABSOLUTE COUNT 2.79 K/ L 1.78-5.38 (BEAKER) (test code = 670) LYMPHOCYTES ABSOLUTE COUNT 1.59 K/ L 1.32-3.57 (BEAKER) (test code = 414) MONOCYTES ABSOLUTE COUNT (BEAKER) 0.44 K/ L 0.30-0.82 (test code = 415) EOSINOPHILS ABSOLUTE COUNT 0.17 K/ L 0.04-0.54 (BEAKER) (test code = 416) BASOPHILS ABSOLUTE COUNT (BEAKER) 0.03 K/ L 0.01-0.08 (test code = 417) IMMATURE GRANULOCYTES-RELATIVE 0 % 0-1 PERCENT (BEAKER) (test code = 2801) ANG, ABSCESS [id number] 08:52:00Reason for exam:->bilioma drainage [facility] Jessica : 1960 Sex: MFINAL REPORT Right upper quadrant fluid collection drainage. History: Right upper quadrant fluid collection Modality: Sonography and fluoroscopy. Sedation: Moderate sedation was administered. 2 mg of Versed and 150 mcg of fentanyl IV was used for moderate sedation monitored under my direction. Total intra-service time of sedation was 30 minutes. The patient's vital signs were monitored throughout the procedure and recorded in the patient's medical record by the nurse. Alternative Energy Technician: Robel Elizalde MD. Principal Automation Engineer: Theresa Doe MD (Fellow) Approach: Upper abdomen, percutaneous Estimatedblood loss: < 5 cc. Specimen: 20 cc of dark, bilious appearing fluid. Fluoroscopy Time: 1.0 min.Re ference Air Kerma (Ka, r): 23.6 mGy. Technique: Informed written consent was obtained. Discussion ofrisks, benefits, and alternatives were made with the patient. The patient expressed understanding and agreed to proceed. A universal timeout was performed prior to starting the procedure. All elements maximal sterile barrier technique was utilized for this procedure, including utilization of sterile scrub solution for skin prep, a large sterile sheet to cover the areas of the patient that were not prepped, and hand hygiene, mask, head covering, and sterile gown for performing radiologist and scrub technologist. Initial ultrasound images demonstrate known fluid collection within the gallbladder fossa/right upper quadrant. 2% lidocaine was used for local anesthesia. Using ultrasound guidance, following acquisition of permanent images, a 21-gauge Chiba needle was used to access the fluid collection within the cholecystectomy bed using a transhepatic approach. A 0.018 inch wire was advanced to the needle and coiled within the collection. The needle was exchanged for an AccuStick sheath. A 0.035 inch wire was then advanced through the AccuStick sheath and coiled within the collection. The tract wasdilated and a 8.5 Dominican drainage catheter advanced over with pigtail formed within the right upper quadrant collection. The catheter spaces skin with silk suture. Dark, bilious appearing fluid initially aspirated. The catheter was then left to bulb suction. A sterile dressing was applied. The patientprone the procedure and left the department in stable condition. Impression: Successful ultrasound/f luoroscopic guided right upper quadrant fluid collection drainage with placement of a 8.5 Dominican pigtail drainage catheter as detailed above. Signed: Robel Elizalde MDReport Verified Date/Time: 05/18/2022 08:52:48 COMPREHENSIVE METABOLIC PANEL 2022-05-18 04:38:31 Test Item Value Reference Range Interpretation Comments TOTAL PROTEIN 5.3 gm/dL 6.0-8.3 L (BEAKER) (test code = 770) ALBUMIN (BEAKER) 3.2 g/dL 3.5-5.0 L (test code = 1145) ALKALINE 209 U/L 40-150 H PHOSPHATASE (BEAKER) (test code = 346) BILIRUBIN TOTAL 1.0 mg/dL 0.2-1.2 (BEAKER) (test code = 377) SODIUM (BEAKER) 135 meq/L 136-145 L (test code = 381) POTASSIUM (BEAKER) 3.4 meq/L 3.5-5.1 L (test code = 379) CHLORIDE (BEAKER) 99 meq/L 98-107 (test code = 382) CO2 (BEAKER) (test 26 meq/L 22-29 code = 355) BLOOD UREA 7 mg/dL 7-21 NITROGEN (BEAKER) (test code = 354) CREATININE 0.71 mg/dL 0.57-1.25 (BEAKER) (test code = 358) GLUCOSE RANDOM 78 mg/dL 70-105 (BEAKER) (test code = 652) CALCIUM (BEAKER) 8.4 mg/dL 8.4-10.2 (test code = 697) AST (SGOT) 16 U/L 5-34 (BEAKER) (test code = 353) ALT (SGPT) 18 U/L 6-55 (BEAKER) (test code = 347) EGFR (BEAKER) 103 Interpretatio n of eGFR (test code = 1092) mL/min/1.[address] age Description sq m Result G1 Raven l or high >=90 G2 Mildly decreased 60-89 G3a Mildl y to moderately 45-5 9 G3b Moderately to s everely 30-44 G4 Severl y decreased 15-29 G5 Kidney failure <15Reported eGF R is based on the CKD-EPI 2021 equation that d oes not use a race coefficientEsti mated GFR is not as accur ate as Creatinine Shazia abril in predicting glom erular filtration rate . Estimated GFR is not appl icable for dialysis patien ts Rabies Inspector ID - PIAYA LCBC W/PLT COUNT & AUTO [id number] 04:05:39 Test Item Value Reference Range Interpretation Comments WHITE BLOOD CELL COUNT (BEAKER) 5.3 K/ L 3.5-10.5 (test code = 775) RED BLOOD CELL COUNT (BEAKER) 4.27 M/ L 4.63-6.08 L (test code = 761) HEMOGLOBIN (BEAKER) (test code = 12.7 GM/DL 13.7-17.5 L 410) HEMATOCRIT (BEAKER) (test code = 36.4 % 40.1-51.0 L 411) MEAN CORPUSCULAR VOLUME (BEAKER) 85.2 fL 79.0-92.2 (test code = 753) MEAN CORPUSCULAR HEMOGLOBIN 29.7 pg 25.7-32.2 (BEAKER) (test code = 751) MEAN CORPUSCULAR HEMOGLOBIN CONC 34.9 GM/DL 32.3-36.5 (BEAKER) (test code = 752) RED CELL DISTRIBUTION WIDTH 12.1 % 11.6-14.4 (BEAKER) (test code = 412) PLATELET COUNT (BEAKER) (test 141 K/CU MM 150-450 L code = 756) MEAN PLATELET VOLUME (BEAKER) 10.2 fL 9.4-12.4 (test code = 754) NUCLEATED RED BLOOD CELLS 0 /100 WBC 0-0 (BEAKER) (test code = 413) NEUTROPHILS RELATIVE PERCENT 49 % (BEAKER) (test code = 429) LYMPHOCYTES RELATIVE PERCENT 37 % (BEAKER) (test code = 430) MONOCYTES RELATIVE PERCENT 9 % (BEAKER) (test code = 431) EOSINOPHILS RELATIVE PERCENT 4 % (BEAKER) (test code = 432) BASOPHILS RELATIVE PERCENT 1 % (BEAKER) (test code = 437) NEUTROPHILS ABSOLUTE COUNT 2.60 K/ L 1.78-5.38 (BEAKER) (test code = 670) LYMPHOCYTES ABSOLUTE COUNT 1.93 K/ L 1.32-3.57 (BEAKER) (test code = 414) MONOCYTES ABSOLUTE COUNT (BEAKER) 0.46 K/ L 0.30-0.82 (test code = 415) EOSINOPHILS ABSOLUTE COUNT 0.22 K/ L 0.04-0.54 (BEAKER) (test code = 416) BASOPHILS ABSOLUTE COUNT (BEAKER) 0.04 K/ L 0.01-0.08 (test code = 417) IMMATURE GRANULOCYTES-RELATIVE 0 % 0-1 PERCENT (BEAKER) (test code = 2801) PROTHROMBIN [id number] 06:26:26 Test Item Value Reference Range Interpretation Comments PROTIME (BEAKER) 15.1 seconds 11.9-14.2 H (test code = 759) INR (BEAKER) (test 1.26 See_Comment [Automat ed message] code = 370) The system [employer] generated this result transmitted ref erence range: <=5.90. The reference range was not used to int erpret this result as normal/abnormal . RECOMMENDED COUMADIN/WARFARIN INR THERAPY RANGESSTANDARD DOSE: 2.0 - 3.0 Includes: PROPHYLAXIS for venous thrombosis, systemic embolization; TREATMENT for venous thrombosis and/or pulmonary embolus.HIGH RISK: Target INR is 2.5-3.5 for patients with mechanical heart valves.COMPREHENSIVE METABOLIC PANEL 2022-05-17 06:20:29 Test Item Value Reference Range Interpretation Comments TOTAL PROTEIN 5.4 gm/dL 6.0-8.3 L (BEAKER) (test code = 770) ALBUMIN (BEAKER) 3.3 g/dL 3.5-5.0 L (test code = 1145) ALKALINE 209 U/L 40-150 H PHOSPHATASE (BEAKER) (test code = 346) BILIRUBIN TOTAL 1.0 mg/dL 0.2-1.2 (BEAKER) (test code = 377) SODIUM (BEAKER) 134 meq/L 136-145 L (test code = 381) POTASSIUM (BEAKER) 3.2 meq/L 3.5-5.1 L (test code = 379) CHLORIDE (BEAKER) 98 meq/L 98-107 (test code = 382) CO2 (BEAKER) (test 23 meq/L 22-29 code = 355) BLOOD UREA 8 mg/dL 7-21 NITROGEN (BEAKER) (test code = 354) CREATININE 0.75 mg/dL 0.57-1.25 (BEAKER) (test code = 358) GLUCOSE RANDOM 79 mg/dL 70-105 (BEAKER) (test code = 652) CALCIUM (BEAKER) 8.5 mg/dL 8.4-10.2 (test code = 697) AST (SGOT) 15 U/L 5-34 (BEAKER) (test code = 353) ALT (SGPT) 19 U/L 6-55 (BEAKER) (test code = 347) EGFR (BEAKER) 102 Interpretatio n of eGFR (test code = 1092) mL/min/1.[address] age Description sq m Result G1 Raven l or high >=90 G2 Mildly decreased 60-89 G3a Mildl y to moderately 45-5 9 G3b Moderately to s everely 30-44 G4 Severl y decreased 15-29 G5 Kidney failure <15Reported eGF R is based on the CKD-EPI 2020 equation that d oes not use a race coefficientEsti mated GFR is not as accur ate as Creatinine Shazia abril in predicting glom erular filtration rate . Estimated GFR is not appl icable for dialysis patien ts Rabies Inspector ID - YOU WCBC W/PLT COUNT & AUTO [id number] 05:34:36 Test Item Value Reference Range Interpretation Comments WHITE BLOOD CELL COUNT (BEAKER) 5.7 K/ L 3.5-10.5 (test code = 775) RED BLOOD CELL COUNT (BEAKER) 4.46 M/ L 4.63-6.08 L (test code = 761) HEMOGLOBIN (BEAKER) (test code = 13.4 GM/DL 13.7-17.5 L 410) HEMATOCRIT (BEAKER) (test code = 38.2 % 40.1-51.0 L 411) MEAN CORPUSCULAR VOLUME (BEAKER) 85.7 fL 79.0-92.2 (test code = 753) MEAN CORPUSCULAR HEMOGLOBIN 30.0 pg 25.7-32.2 (BEAKER) (test code = 751) MEAN CORPUSCULAR HEMOGLOBIN CONC 35.1 GM/DL 32.3-36.5 (BEAKER) (test code = 752) RED CELL DISTRIBUTION WIDTH 12.2 % 11.6-14.4 (BEAKER) (test code = 412) PLATELET COUNT (BEAKER) (test 153 K/CU MM 150-450 code = 756) MEAN PLATELET VOLUME (BEAKER) 10.3 fL 9.4-12.4 (test code = 754) NUCLEATED RED BLOOD CELLS 0 /100 WBC 0-0 (BEAKER) (test code = 413) NEUTROPHILS RELATIVE PERCENT 61 % (BEAKER) (test code = 429) LYMPHOCYTES RELATIVE PERCENT 26 % (BEAKER) (test code = 430) MONOCYTES RELATIVE PERCENT 8 % (BEAKER) (test code = 431) EOSINOPHILS RELATIVE PERCENT 4 % (BEAKER) (test code = 432) BASOPHILS RELATIVE PERCENT 1 % (BEAKER) (test code = 437) NEUTROPHILS ABSOLUTE COUNT 3.47 K/ L 1.78-5.38 (BEAKER) (test code = 670) LYMPHOCYTES ABSOLUTE COUNT 1.48 K/ L 1.32-3.57 (BEAKER) (test code = 414) MONOCYTES ABSOLUTE COUNT (BEAKER) 0.44 K/ L 0.30-0.82 (test code = 415) EOSINOPHILS ABSOLUTE COUNT 0.21 K/ L 0.04-0.54 (BEAKER) (test code = 416) BASOPHILS ABSOLUTE COUNT (BEAKER) 0.04 K/ L 0.01-0.08 (test code = 417) IMMATURE GRANULOCYTES-RELATIVE 1 % 0-1 PERCENT (BEAKER) (test code = 2801) SARS-CoV2/RT-PCR (Asymptomatic ONLY)2022-05-15 12:45:15 Test Item Value Reference Interpretation Comments Range SARS-COV2/RT-PCR Negative Negative The SARS-Co V-2 (test code = target nucleic 86951-4) acids are not detected in thi s [...] revoked sooner. Fact Sheet for Healthcare Providers: https://www.[employer]/Documents/Xp ert%20Xpress%20SAR S%20CoV-2/Fact%20S heets/3023802%20S ARS-COV-2%20HEALTH CARE%20PROVIDERS%2 0FACT%20SHEET.pdf Fact Sheet for Healthcare Patients: https://www.[employer]/Documents/Xp ert%20Xpress%20SAR S%20CoV-2/Fact%20S heets/302-3801%20S ARS-COV-2%20PATIEN T%20FACT%20SHEET.p df Lab Interpretation Normal (test code = 33077-3) [facility])2022-05-15 12:45:15 Test Item Value Reference Range Interpretation Comments SARS-COV2/RT-PCR Negative Negative The SARS-Co V-2 target (test code = nucleic acids a re not 3745477) detected in thi s specimen. Negative result [...] revoked sooner. Fact Sheet for Healthcare Providers: https://www.[employer] m/Documents/Xpert%20Xpress%20SARS%20CoV-2/Fact%20Sheets/769-4562%73KFLW-NAK-1%20 HEALTHCARE%20PROVIDERS%20FACT%20SHEET.pdf Fact Sheet for Healthcare Patients: https://www.[employer]/Documents/Xpert%20Xp ress%20SARS%20CoV-2/Fact%20Sheets/159-3801%74QHPO-INZ-8%20PATIENT%20FACT%20SHEET .[id number] 02:48:18 Test Item Value Reference Range Interpretation Comments MAGNESIUM (BEAKER) (test code = 1.9 mg/dL 1.6-2.6 627) Rabies Inspector ID - WALLY [id number] 02:48:18 Test Item Value Reference Range Interpretation Comments PHOSPHORUS (BEAKER) (test code = 2.3 mg/dL 2.3-4.7 604) Rabies Inspector ID - WALLY MHEPATIC FUNCTION [id number] 02:48:18 Test Item Value Reference Range Interpretation Comments TOTAL PROTEIN (BEAKER) (test code = 6.5 gm/dL 6.0-8.3 770) ALBUMIN (BEAKER) (test code = 1145) 3.9 g/dL 3.5-5.0 BILIRUBIN TOTAL (BEAKER) (test code 1.3 mg/dL 0.2-1.2 H = 377) BILIRUBIN DIRECT (BEAKER) (test 0.8 mg/dL 0.1-0.5 H code = 706) ALKALINE PHOSPHATASE (BEAKER) (test 184 U/L 40-150 H code = 346) AST (SGOT) (BEAKER) (test code = 17 U/L 5-34 353) ALT (SGPT) (BEAKER) (test code = 28 U/L 6-55 347) Rabies Inspector ID - WALLY MBASIC METABOLIC [id number] 02:48:17 Test Item Value Reference Range Interpretation Comments SODIUM (BEAKER) 133 meq/L 136-145 L (test code = 381) POTASSIUM 3.6 meq/L 3.5-5.1 (BEAKER) (test code = 379) CHLORIDE (BEAKER) 97 meq/L 98-107 L (test code = 382) CO2 (BEAKER) 21 meq/L 22-29 L (test code = 355) BLOOD UREA 13 mg/dL 7-21 NITROGEN (BEAKER) (test code = 354) CREATININE 0.84 mg/dL 0.57-1.25 (BEAKER) (test code = 358) GLUCOSE RANDOM 104 mg/dL 70-105 (BEAKER) (test code = 652) CALCIUM (BEAKER) 9.1 mg/dL 8.4-10.2 (test code = 697) EGFR (BEAKER) 99 Interpretatio n of eGFR (test code = mL/min/1.73 values Stage De scription 1092) sq m Result G1 Raven l or high >=90 G2 Mildly decreased 60-89 G3a Mildl y to moderately 45-5 9 G3b Moderately to s everely 30-44 G4 Severl y decreased 15-29 G5 Kidney failure <15Reported eGF R is based on the CKD-EPI 202 equation that d oes not use a race coefficientEsti mated GFR is not as accur ate as Creatinine Shazia abril in predicting glom erular filtration rate . Estimated GFR is not appl icable for dialysis patien ts Rabies Inspector ID - WALLY MPROTHROMBIN TIME/[id number] 01:51:51 Test Item Value Reference Range Interpretation Comments PROTIME (BEAKER) 13.9 seconds 11.9-14.2 (test code = 759) INR (BEAKER) (test 1.13 See_Comment [Automat ed message] code = 370) The system [employer] Rat[employer] generated this result transmitted ref erence range: <=5.90. The reference range was not used to int erpret this result as normal/abnormal . RECOMMENDED COUMADIN/WARFARIN INR THERAPY RANGESSTANDARD DOSE: 2.0 - 3.0 Includes: PROPHYLAXIS for venous thrombosis, systemic embolization; TREATMENT for venous thrombosis and/or pulmonary embolus.HIGH RISK: Target INR is 2.5-3.5 for patients with mechanical heart valves.CBC W/PLT COUNT & AUTO [id number] 01:43:47 Test Item Value Reference Range Interpretation Comments WHITE BLOOD CELL COUNT (BEAKER) 8.8 K/ L 3.5-10.5 (test code = 775) RED BLOOD CELL COUNT (BEAKER) 5.11 M/ L 4.63-6.08 (test code = 761) HEMOGLOBIN (BEAKER) (test code = 15.2 GM/DL 13.7-17.5 410) HEMATOCRIT (BEAKER) (test code = 42.0 % 40.1-51.0 411) MEAN CORPUSCULAR VOLUME (BEAKER) 82.2 fL 79.0-92.2 (test code = 753) MEAN CORPUSCULAR HEMOGLOBIN 29.7 pg 25.7-32.2 (BEAKER) (test code = 751) MEAN CORPUSCULAR HEMOGLOBIN CONC 36.2 GM/DL 32.3-36.5 (BEAKER) (test code = 752) RED CELL DISTRIBUTION WIDTH 12.3 % 11.6-14.4 (BEAKER) (test code = 412) PLATELET COUNT (BEAKER) (test 146 K/CU MM 150-450 L code = 756) MEAN PLATELET VOLUME (BEAKER) 10.3 fL 9.4-12.4 (test code = 754) NUCLEATED RED BLOOD CELLS 0 /100 WBC 0-0 (BEAKER) (test code = 413) NEUTROPHILS RELATIVE PERCENT 73 % (BEAKER) (test code = 429) LYMPHOCYTES RELATIVE PERCENT 17 % (BEAKER) (test code = 430) MONOCYTES RELATIVE PERCENT 7 % (BEAKER) (test code = 431) EOSINOPHILS RELATIVE PERCENT 2 % (BEAKER) (test code = 432) BASOPHILS RELATIVE PERCENT 0 % (BEAKER) (test code = 437) NEUTROPHILS ABSOLUTE COUNT 6.36 K/ L 1.78-5.38 H (BEAKER) (test code = 670) LYMPHOCYTES ABSOLUTE COUNT 1.50 K/ L 1.32-3.57 (BEAKER) (test code = 414) MONOCYTES ABSOLUTE COUNT (BEAKER) 0.62 K/ L 0.30-0.82 (test code = 415) EOSINOPHILS ABSOLUTE COUNT 0.21 K/ L 0.04-0.54 (BEAKER) (test code = 416) BASOPHILS ABSOLUTE COUNT (BEAKER) 0.02 K/ L 0.01-0.08 (test code = 417) IMMATURE GRANULOCYTES-RELATIVE 1 % 0-1 PERCENT (BEAKER) (test code = 2801) BASIC METABOLIC [id number] 04:05:58 Test Item Value Reference Range Interpretation Comments SODIUM (BEAKER) 137 meq/L 136-145 (test code = 381) POTASSIUM 3.6 meq/L 3.5-5.1 (BEAKER) (test code = 379) CHLORIDE (BEAKER) 103 meq/L 98-107 (test code = 382) CO2 (BEAKER) 23 meq/L 22-29 (test code = 355) BLOOD UREA 15 mg/dL 7-21 NITROGEN (BEAKER) (test code = 354) CREATININE 0.82 mg/dL 0.57-1.25 (BEAKER) (test code = 358) GLUCOSE RANDOM 105 mg/dL 70-105 (BEAKER) (test code = 652) CALCIUM (BEAKER) 8.6 mg/dL 8.4-10.2 (test code = 697) EGFR (BEAKER) 100 Interpretatio n of eGFR (test code = mL/min/1.73 values Stage De scription 1092) sq m Result G1 Raven l or high >=90 G2 Mildly decreased 60-89 G3a Mildl y to moderately 45-5 9 G3b Moderately to s everely 30-44 G4 Severl y decreased 15-29 G5 Kidney failure <15Reported eGF R is based on the CKD-EPI 2020 equation that d oes not use a race coefficientEsti mated GFR is not as accur ate as Creatinine Shazia abril in predicting glom erular filtration rate . Estimated GFR is not appl icable for dialysis patien ts Rabies Inspector ID - YOU [id number] 04:05:58 Test Item Value Reference Range Interpretation Comments MAGNESIUM (BEAKER) (test code = 2.2 mg/dL 1.6-2.6 627) Rabies Inspector ID - YOU WLIPID [id number] 04:05:58 Test Item Value Reference Range Interpretation [...] Borderline 130-159 High 160-189 Very High >=190 Rabies Inspector ID - YOU WHEPATIC FUNCTION [id number] 04:05:58 Test Item Value Reference Range Interpretation [...] (test code = 54 U/L 6-55 347) Rabies Inspector KARO ORTA WCBC W/PLT COUNT & AUTO [id number] 03:45:31 Test Item Value Reference Range Interpretation [...] PERCENT (BEAKER) (test code = 2801) CT, [id number] 20:34:00Unlisted Reason for Exam - Click Yes and Enter Reason Below->NoIs this for enterography?->NoWill this procedure require oral contrast?->No [facility] 1960 Sex: MFINAL [...] decreased from the previous exam. Signed: Lisa Cuevas MDReport Verified Date/Time: 05/10/2022 20:34:06 COMPREHENSIVE METABOLIC PANEL [...] G3b Moderately to s everely 30-44 G4 Severl y decreased 15-29 G5 Kidney failure <15Reported eGF R is based on the CKD-EPI 2020 equation that d oes not use a race coefficientEsti mated GFR is not as accur ate as Creatinine Shazia abril in predicting glom erular filtration rate . Estimated GFR is not appl icable for dialysis patien ts Rabies Inspector ID - MERRY [facility] (HEMOGRAM ONLY)2022-05-10 03:55:35 [...] SARS-Co V-2 (test code = target nucleic 91856-5) acids are not detected in thi s [...] om SARS-CoV-2 in a nasopharyngeal swab specimen colle loki from individual s suspected of COVID-19 [...] revoked sooner. Fact Sheet for Healthcare Providers: https://www.[employer]/Documents/Xp ert%20Xpress%20SAR S%20CoV-2/Fact%20S heets/302-3802%20S ARS-COV-2%20HEALTH CARE%20PROVIDERS%2 0FACT%20SHEET.pdf Fact Sheet for Healthcare Patients: https://www.[employer]/Documents/Xp ert%20Xpress%20SAR S%20CoV-2/Fact%20S heets/302-3801%20S ARS-COV-2%20PATIEN T%20FACT%20SHEET.p df Lab Interpretation Normal (test code = 08219-4) [facility])2022-05-10 03:50:54 Test Item Value Reference Range Interpretation Comments SARS-COV2/RT-PCR Negative Negative The SARS-Co V-2 target (test code = nucleic acids a re not 7982317) detected in thi s specimen. Negative result [...] revoked sooner. Fact Sheet for Healthcare Providers: https://www.[employer] m/Documents/Xpert%20Xpress%20SARS%20CoV-2/Fact%20Sheets/3023802%47SRNP-AKL-6%20 HEALTHCARE%20PROVIDERS%20FACT%20SHEET.pdf Fact Sheet for Healthcare Patients: https://www.[employer]/Documents/Xpert%20Xp ress%20SARS%20CoV-2/Fact%20Sheets/3023801%85TXDN-LRV-7%20PATIENT%20FACT%20SHEET .pdf- XR CHEST 2 [id number] 00:00:00 [facility] : 1960 Sex: M FAX: Jordan Ledezma MD [phone] [place]: St: [facility] FAX: Ashvin Cintron MD [phone] Name: CARROL CHAMPAGNE [facility] : 1960 Age/S: 61/M [address] [place] [address] Unit #: [id number] Loc: [place], [place] [address]Gecq: Ashvin Carter MD Acct: [id number] Dis Date: Status: REG CLI PHONE #: [phone] Exam Date: 01/07/2022 1508 FAX #: [phone] Reason: CLL EXAMS: CPT CODE: [id number] XR CHEST 2 V [id number] PROCEDURE INFORMATION: Exam: XR Chest Exam date [...] seen. IMPRESSION: No acute cardiopulmonary findings. at 4950 Reported and signed by: Oma Malcolm CC: Jordan Juarez MD; Ashvin Carter MD Technologist: RT Erin(Pollo) Trnscrd Date/Time/By: 01/07/2022 (1749) : By: DevanTDO Orig Print D/T: S: 01/07/2022 (145) PAGE 1 Signed Report
[2022-05-29] MEDS ORDERED: FAMOTIDINE 20 MG/2 ML VIAL IV ONE (11:53)
[2022-05-29] MEDS ORDERED: ONDANSETRON 4 MG/2 ML VIAL ONE (11:53)
[2022-05-29 12:01] LABS: Absolute Lymphocytes (CBC) 1.1 K/uL (0.7-4.9); Hematocrit 44.2 % (39.6-49.0); Lymphocytes % 11.9 % (15.3-44.8); MCV 85.8 fL (80-100); MPV 8.2 fL (7.6-11.3); RBC Red Blood Cell Count 5.15 M/uL (4.33-5.43)
[2022-05-29] MEDS ORDERED: MORPHINE 4 MG/ML SYR ONE (12:08)
[2022-05-29 12:20] LABS: Albumin 3.4 g/dL (3.4-5.0); Bilirubin Total 0.9 mg/dL (0.2-1.0); Potassium 3.9 mmol/L (3.5-5.1); Protein, Total 7.2 g/dL (6.4-8.2); Troponin High Sensitivity 3.3 pg/mL (<58.9)
--- NOTE | 2022-05-29 13:23 | RAD REPORT ---
EXAM DESCRIPTION: CT - Chest For Pe Angio - 05/29/2022 12:39 pm CLINICAL HISTORY: Chest pain. recent surgery, pleuritic chest pain, r/o PE COMPARISON: Chest For Pe Angio dated 05/06/2022 TECHNIQUE: CT angiogram of the pulmonary arteries was performed with MIP. All CT scans are performed using dose optimization technique as appropriate and may include automated exposure control or mA/KV adjustment according to patient size. FINDINGS: No evidence of pulmonary thromboembolism. No acute aortic finding demonstrated. The lungs are clear. No significant pericardial or pleural fluid. No concerning bony finding. IMPRESSION: No evidence of pulmonary thromboembolism. No acute lung findings.
--- NOTE | 2022-05-29 13:29 | RAD REPORT ---
EXAM DESCRIPTION: CTAbdomen Pelvis W Contrast - 05/29/2022 12:40 pm CLINICAL HISTORY: Abdominal pain. s/p biloma with drain placement COMPARISON: Abdomen Pelvis W Contrast dated 05/08/2022; Abdomen Pelvis W Contrast dated 05/06/2022; Abdomen Pelvis W Contrast dated 04/12/2017; Stone Protocol dated 05/14/2022; Hepatobiliary System Imagi n dated 05/09/2022 TECHNIQUE: Biphasic CT imaging of the abdomen and pelvis was performed with 100 ml non-ionic IV cont rast. All CT scans are performed using dose optimization technique as appropriate and may include automated exposure control or mA/KV adjustment according to patient size. FINDINGS: The lung bases are clear.Cholecystectomy. The previously noted large fluid collection in the right upper quadrant anteriorly has reduced in siz e currently measuring 5.0 x 1.5 cm. There is a drainage catheter in the right upper quadrant entering anteriorly traversing the left lobe liver. This catheter pigtail appears adjacent to this collection . Common bile duct stent is in place. Small amount of air is seen left biliary tree. The spleen is mildly enlarged. Pancreas, adrenal gland s and kidneys are within normal limits. No bowel obstruction, free air, free fluid or abscess. Moderate stool is present throughout the colon . The appendix is normal. No evidence of significant lymphadenopathy. No suspicious bony findings. IMPRESSION: The previously noted biloma has diminished in size currently measuring 5.0 x 1.5 cm. Pig tail catheter is in place, the pigtail however does appear outside the residual biloma. Common bile duct stent noted.
--- NOTE | 2022-05-29 13:37 | EDPHYS ---
Physician Documentation [facility] Name: Wiley Anne Age: 61 yrs Sex: Male : 1960 Arrival Date: 05/29/2022 Time: 11:17 Bed 16 Private MD: Jordan Juarez ED Physician Kel Louis HPI: 05/29 12:06 This 61 yrs old Male presents to ER via Wheelchair with complaints of Chest Pain, rn Breathing Difficulty, Vomiting. 12:06 The patient or guardian reports chest pain that is located primarily in the substernal rn area, epigastric area. Onset: at an unknown time. The pain does not radiate. Associated signs and symptoms: Pertinent positives: abdominal pain, shortness of breath, vomiting, Pertinent negatives: syncope. The chest pain is described as sharp, stabbing. Duration: The patient or guardian reports multiple episodes, that are intermittent. Modifying factors: The symptoms are alleviated by nothing. the symptoms are aggravated by cough, deep breath, palpation of area. Severity of pain: At its worst the pain was moderate in the emergency department the pain is unchanged. The patient has experienced similar episodes in the past. The patient has been recently seen by a physician:. Historical: - Allergies: 11:26 No Known Allergies; bm7 - Home Meds: 11:26 Flomax 0.4 mg Oral cap 2 caps once daily [Active]; [place] 7.5-325 mg Oral tab 1 tab bm7 every 6 hours [Active]; Zofran 4 mg Oral tab 1 tab 4 times per day [Active]; amoxicillin-pot clavulanate 500-125 mg Oral tab 1 tab every 8 hours [Active]; - Immunization history:: Adult Immunizations up to date. - Social history:: Smoking status: Patient denies any tobacco usage or history of. - Family history:: not pertinent. - Hospitalizations: : Patient was recently seen at. ROS: 12:06 Constitutional: Negative for fever, chills, and weight loss, Eyes: Negative for injury, rn pain, redness, and discharge, Neck: Negative for injury, pain, and swelling, Cardiovascular: + chest pain Respiratory: + sob Abdomen/GI: + upper abd pain Back: Negative for injury and pain, MS/Extremity: Negative for injury and deformity, Skin: Negative for injury, rash, and discoloration, Neuro: Negative for headache, weakness, numbness, tingling, and seizure. Exam: 12:06 Constitutional: This is a well developed, well nourished patient who is awake, alert, rn and in no acute distress. Head/Face: Normocephalic, atraumatic. Cardiovascular: Regular rate and rhythm. No pulse deficits. Respiratory: No increased work of breathing, no retractions or nasal flaring. Abdomen/GI: Soft, + mild epigastric and RUQ tenderness, + drain located in epigastrium Skin: Warm, dry MS/ Extremity: Pulses equal, no cyanosis. Neuro: Awake and alert, GCS 15 Vital Signs: 11:26 BP 154 / 86; Pulse 88; Resp 16; Temp 98.3(TE); Pulse Ox 100% on R/A; Weight 58.97 kg bm7 (R); Height 5 ft. 3 in. (160.02 cm); Pain 10/10; 11:30 BP 138 / 66; Pulse 78; Resp 16; Pulse Ox 100% ; Pain 10/10; ko1 11:26 Body Mass Index 23.03 (58.97 kg, 160.02 cm) bm7 MDM: 11:26 Patient medically screened. rn 13:36 Differential diagnosis: acute myocardial infarction, acute pericarditis, pulmonary rn embolus. Data reviewed: vital signs, nurses notes, lab test result(s), radiologic studies, CT scan, and as a result, I will discharge patient. Counseling: I had a detailed discussion with the patient and/or guardian regarding: the historical points, exam findings, and any diagnostic results supporting the discharge/admit diagnosis, lab results, radiology results, the need for outpatient follow up, to return to the emergency department if symptoms worsen or persist or if there are any questions or concerns that arise at home. Special discussion: Based on the patient's history, exam, and Dx evaluation, there is no indication for emergent intervention or inpatient Tx. It is understood by the patient/guardian that if the Sx's persist or worsen they need to return immediately for re-evaluation. Based on the patient's Hx, exam, and Dx evaluation, there is no indication for emergent surgery or inpatient Tx. It is understood by the patient/guardian that if the Sx's persist or worsen they need to return immediately for re-evaluation. I discussed with the patient/guardian in detail that at this point there is no indication for admission to the hospital. It is understood, however, that if the symptoms persist or worsen the patient needs to return immediately for re-evaluation. ED course: CT shows decrease in biloma, drain still draining, CT PE neg, will dc home. . 05/29 11:36 Order name: CBC with Diff; Complete Time: 12:25 rn 05/29 11:36 Order name: CMP; Complete Time: 12:25 rn 05/29 11:36 Order name: Lipase; Complete Time: 12:25 rn 05/29 11:36 Order name: CT Abd/Pelvis - IV Contrast Only; Complete Time: 13:32 rn 05/29 11:36 Order name: CT Chest For PE Angio; Complete Time: 13:32 rn 05/29 11:36 Order name: Troponin High Sensitivity; Complete Time: 12:25 rn 05/29 11:36 Order name: IV Saline Lock; Complete Time: 12:19 rn 05/29 11:36 Order name: Labs collected and sent; Complete Time: 11:56 rn 05/29 11:36 Order name: EKG; Complete Time: 11:37 rn 05/29 11:36 Order name: EKG - Nurse/Tech; Complete Time: 12:20 rn Administered Medications: 12:19 Drug: Zofran (Ondansetron) 4 mg Route: IVP; Site: left forearm; ko1 12:20 Drug: Pepcid (famotidine) 20 mg Route: IVP; Site: left forearm; ko1 12:31 Drug: morphine 4 mg Route: IVP; Infused Over: 4 mins; Site: left forearm; ko1 Disposition Summary: 05/29/22 13:37 Discharge Ordered Location: Home rn Problem: new rn Symptoms: have improved rn Condition: Stable rn Diagnosis - Chest pain, unspecified rn - Abdominal pain, unspecified rn Followup: rn - With: Private Physician - When: As needed - Reason: Recheck today's complaints, Re-evaluation by your physician Discharge Instructions: - Discharge Summary Sheet rn - Abdominal Pain, Adult rn - Nonspecific Chest Pain, Adult rn Forms: - Medication Reconciliation Form rn - Thank You Letter rn - Antibiotic ornament stapler - Prescription Opioid Use rn Signatures: Dispatcher [employer] EDKel Prabhakar MD MD rn McCarthy, Brittany, RN RN 7 Christelle Quevedo RN RN ko1 Corrections: (The following items were deleted from the chart) PMHx: LYMPHOMA; PMHx: CLL; PSHx: [facility]; [facility]
--- NOTE | 2022-05-29 13:37 | ER ---
Nurse's Notes [facility] Name: Wiley Anne Age: 61 yrs Sex: Male : 1960 Arrival Date: 05/29/2022 Time: 11:17 Bed 16 Private MD: Jordan Juarez Diagnosis: Chest pain, unspecified;Abdominal pain, unspecified Presentation: 05/29 11:25 Chief complaint: Patient states: I had surgery a while ago and then they transferred me bm7 to have a drain put into my bowels and now I can not breathe without it hurting. Coronavirus screen: At this time, the client does not indicate any symptoms associated with coronavirus-19. Ebola Screen: No symptoms or risks identified at this time. Initial Sepsis Screen: Does the patient meet any 2 criteria? No. Patient's initial sepsis screen is negative. Does the patient have a suspected source of infection? Yes: Skin breakdown/wound. Risk Assessment: Do you want to hurt yourself or someone else? Patient reports no desire to harm self or others. Onset of symptoms is unknown. 11:25 Method Of Arrival: Wheelchair bm7 11:25 Acuity: JASMIN 3 bm7 Triage Assessment: 11:26 General: Appears in no apparent distress. uncomfortable, Behavior is anxious. Pain: bm7 Complains of pain in abdomen. EENT: No deficits noted. No signs and/or symptoms were reported regarding the EENT system. Neuro: No deficits noted. Cardiovascular: Chest pain is denied. Respiratory: No deficits noted. GI: Abdomen is flat, non-distended, Reports lower abdominal pain, upper abdominal pain, constipation. : No deficits noted. No signs and/or symptoms were reported regarding the genitourinary system. Derm: No deficits noted. No signs and/or symptoms reported regarding the dermatologic system. Musculoskeletal: No deficits noted. No signs and/or symptoms reported regarding the musculoskeletal system. Historical: - Allergies: : No Known Allergies; bm7 - Home Meds: : Flomax 0.4 mg Oral cap 2 caps once daily [Active]; [place] 7.5-325 mg Oral tab 1 tab bm7 every 6 hours [Active]; Zofran 4 mg Oral tab 1 tab 4 times per day [Active]; amoxicillin-pot clavulanate 500-125 mg Oral tab 1 tab every 8 hours [Active]; - Immunization history:: Adult Immunizations up to date. - Social history:: Smoking status: Patient denies any tobacco usage or history of. - Family history:: not pertinent. - Hospitalizations: : Patient was recently seen at. Screenin:30 Abuse screen: Denies threats or abuse. Denies injuries from another. Nutritional ko1 screening: No deficits noted. Tuberculosis screening: No symptoms or risk factors identified. Fall Risk None identified. IV access (20 points). Assessment: 11:30 Also complains of nausea. General: Appears distressed, uncomfortable, Behavior is calm, ko1 cooperative, appropriate for age. Pain: Complains of pain in diaphragm Pain does not radiate. Pain at worst was 10 out of 10 on a pain scale. Quality of pain is described as sharp, stabbing, Pain began 1 day ago. Neuro: No deficits noted. Cardiovascular: No deficits noted. Respiratory: No deficits noted. GI: No deficits noted. : No deficits noted. EENT: No deficits noted. Derm: No deficits noted. Musculoskeletal: No deficits noted. Vital Signs: 11:26 BP 154 / 86; Pulse 88; Resp 16; Temp 98.3(TE); Pulse Ox 100% on R/A; Weight 58.97 kg bm7 (R); Height 5 ft. 3 in. (160.02 cm); Pain 10/10; 11:30 BP 138 / 66; Pulse 78; Resp 16; Pulse Ox 100% ; Pain 10/10; ko1 11:26 Body Mass Index 23.03 (58.97 kg, 160.02 cm) 7 ED Course: 11:17 Patient arrived in ED. mr 11:17 Jordan Juarez MD is Private Physician. mr 11:25 Christelle Quevedo, MOSES is Primary Nurse. ko1 11:26 Triage completed. bm7 11:26 Kel Louis MD is Attending Physician. rn 11:26 Arm band placed on right wrist. bm7 11:30 Patient has correct armband on for positive identification. Bed in low position. Call ko1 light in reach. Client placed on continuous cardiac and pulse oximetry monitoring. NIBP monitoring applied. curatorial specialist on. 11:30 Inserted saline lock: 20 gauge in left forearm, using aseptic technique. Blood ko1 collected. Patient maintains SpO2 saturation greater than 95% on room air. 11:56 CBC with Diff Sent. ko1 11:56 CMP Sent. ko1 11:56 Lipase Sent. ko1 12:19 Troponin High Sensitivity Sent. ko1 12:41 CT Chest For PE Angio In Process Unspecified. EDMS 12:42 CT Abd/Pelvis - IV Contrast Only In Process Unspecified. EDMS 13:49 No provider procedures requiring assistance completed. IV discontinued, intact, ko1 bleeding controlled, No redness/swelling at site. Pressure dressing applied. Administered Medications: 12:19 Drug: Zofran (Ondansetron) 4 mg Route: IVP; Site: left forearm; ko1 12:20 Drug: Pepcid (famotidine) 20 mg Route: IVP; Site: left forearm; ko1 12:31 Drug: morphine 4 mg Route: IVP; Infused Over: 4 mins; Site: left forearm; ko1 Medication: 11:30 VIS not applicable for this client. ko1 Outcome: 13:37 Discharge ordered by . rn 13:49 Discharged to home ambulatory, with family. ko1 13:49 Condition: stable 13:49 Discharge instructions given to patient, family, Instructed on discharge instructions, follow up and referral plans. Demonstrated understanding of instructions, follow-up care. 13:51 Patient left the ED. ko1 Signatures: Dispatcher [employer] MIHAELACO Nancy Draper Kel Garcia MD MD rn McCarthy, Brittany, RN RN Christelle Kennedy RN RN ko1 Corrections: (The following items were deleted from the chart) 11:29 11:26 PMHx: LYMPHOMA; bm7 bm7 11:29 11:26 PMHx: CLL; bm7 bm7 11:29 11:26 PSHx: Cholecystectomy; bm7 bm7
[2022-05-30 23:08] VITALS: TEMP 98.3; O2SAT 100
[2022-05-30 23:15] VITALS: BP 138/66
--- NOTE | 2022-05-31 14:11 | EKG ---
Test Date: 2022-05-29 Test Time: 12:24:15 Manager Client Service: SANTI MEASUREMENT RESULTS: Intervals: Rate: 75 [place]: 144 QRSD: 76 QT: 372 QTc: 415 Index: P: 76 [place]: 144 QRS: 62 T: 66 INTERPRETIVE STATEMENTS: Poor data quality, interpretation may be adversely affected Normal sinus rhythm Normal ECG Compared to ECG 05/08/2022 06:22:53 No significant changes Electronically Signed On 05-31-22 14:09:19 CDT by Andrew Trevino
== END 2022-05-29 13:51 | disposition home or self-care (01) ==
LOC: ER 11:15
DX: R07.89 Other chest pain (principal); R10.13 Epigastric pain
CPT/HCPCS: 93005; 85025; 36415; 84484; 83690; 80053; 71275; 74177; 96375; 96374; 99285; Q9967; J2405

== ENCOUNTER 2022-07-26 06:28 | Emergency (ER) | payer OTHER ==
--- OUTSIDE RECORDS SUMMARY | 2022-07-26 06:36 | XMS REPORT | Continuity of Care Document ---
:1960 Author Organization [facility] t Address Formerly [facility] [place] [address] Care Team Providers Name Role Phone ALICIA JORDAN Watts Primary Care Physician Unavailable RADHA OTTO Attending Clinician Unavailable HUNTER COULTER Attending Clinician Unavailable HEIDI LUGO Attending Clinician Unavailable Faculty, Surgery Transplant Attending Clinician Unavailable Heidi Lugo MD Attending Clinician CASIE CALLEJAS Attending Clinician Unavailable Tessa Hutchison LVN Attending Clinician Yoni Mckee MD Attending Clinician Chris Romero MD Attending Clinician Heath Dia MD Attending Clinician HEATH DIA Attending Clinician Unavailable Gomez Hui MD Attending Clinician Yulissa Ramírez CRNA Attending Clinician Nuvia Burton Attending Clinician Unavailable Larisa Botello MD Attending Clinician [phone] Goran Kelly MD Attending Clinician Casie Johnson MD Attending Clinician Cheryl Bee Attending Clinician Unavailable GENARO VELÁSQUEZ Attending Clinician Unavailable Merchant PORRAS, Ayo Attending Clinician Mian PORRAS, Isidro Attending Clinician Derek PORRAS, Genaro Doyle Attending Clinician [phone] Floyd PORRAS, Georgiana Roland Attending Clinician SANDRA DAMICO Attending Clinician Unavailable Juliano PORRAS, Yue Horton Attending Clinician Mookie PORRAS, Sandra Kearns Attending Clinician Juan PORRAS, Holly Attending Clinician David Michael MD Attending Clinician Radha Otto Attending Clinician Ashvin Carter Attending Clinician Unavailable RADHA OTTO Admitting Clinician Unavailable JOSE ELIAS SHEIKH Admitting Clinician Unavailable Heath Dia MD Admitting Clinician HEATH DIA Admitting Clinician Unavailable GEORGIANA CLARKE Admitting Clinician Unavailable SANDRA DAMICO Admitting Clinician Unavailable YUE MOULTON Admitting Clinician Unavailable Jordan Juarez Admitting Clinician Unavailable Payers Payer Name Policy Type Policy Number Effective Date Expiration Date S juanis CORONA MINONG [id number] 2021 00:00:00 [facility]A [facility] [id number] 2021 [facility] 00:00:00 Problems Condition Condition Condition Status Onset Resolution Last Treating Co mments Source Name Details Category Date Date Treatment Clinician Date Biliary Biliary Disease Active 2021-09 Univers anastomoti anastomoti 0-18 it y of c leak at [place] site [place] T site of T 00 Medi daniel tube tube Branch insertion insertion Bile leak, Bile leak, Disease Active 2021-09 U nivers postoperat postoperat 0-14 it y of prince prince 00:00: [address] Branch E44.0 E44.0 Disease Active 2021-09 Univers Moderate Moderate 0-14 ity of protein protein 00:00: [place] calorie calorie 00 Medical malnutriti malnutriti Br anch on on Biloma Biloma Disease [facility] Bile leak Bile leak Disease Active [facility] Medical 00 [place] Biliary Biliary Disease Active [facility] anastomoti anastomoti 9-05 Brandi kes c leak c leak 00:00: Medical 00 Center Pneumonia Pneumonia Disease Active 2015-[address] [facility] of both of both 2-04 [facility] lower lower 00:00: Medical lobes due lobes due 00 Cent er to to infectious infectious organism organism Hyponatrem Hyponatrem Disease Active 2015-[address] ia ia 204 [facility] 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 2- Brandi kes ban ban 00:00: Medical 00 [place] SIRS SIRS Disease Active 2015-[address] (systemic (systemic 2- [facility] s inflammato inflammato 00:00: Me dical ry ry 00 Center response response syndrome) syndrome) Lymphoma, Lymphoma, Disease Active 2015-[address] low grade low grade 2-02 [facility] 00:00: Medical 00 Center Thrombocyt Thrombocyt Disease Active 2015-[address] openia openia 2- [facility] Center Weakness Weakness Disease Active 2015-09 [facility] Anemia Anemia Disease Active 2015-[address] [facility]- [facility] Center Thrombocyt Thrombocyt Disease Active 2015-[address] openia openia 2- [facility] 00 Center Shortness Shortness Disease Active 2015-[address] of breath of breath 2- Luke s 00:00: Medical 00 Center Other Other Problem Active Common chronic chronic Spirit pain pain - [facility] Allergic Allergic Problem Active Commo n rhinitis, rhinitis, Spir it seasonal seasonal - [facility] Essential Essential Problem Active Com mon (primary) (primary) Spir it hypertensi hypertensi - [facility] on on [facility] Paresthesi Paresthesi Problem Active C ommon a of skin a of skin Spir it - [facility] Scratched Scratched Problem Active Com mon by cat, by cat, Spirit initial initial - CHI encounter encounter [facility] Asthmatic Asthmatic Problem Active Com mon bronchitis bronchitis Sp epifanio - 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 Pain in Pain in Diagnosis Active Commo n left ankle left ankle Sp epifanio and joints and joints - CHI of left of left St foot foot [facility] Sprain of Sprain of Diagnosis Active C ommon other other Spirit ligament ligament - CHI of left of left ankle, ankle, [facility] Allergies, Adverse Reactions, Alerts Allergy Allergy Status Severity Reaction(s) Onset Inactive Treating Comm ents Source Name Type Date Date Clinician No Known DA Active U [facility] Allergie 10-05 Clear s 00:00: Rodríguez 00 [facility] NO KNOWN Drug Active Univers ALLERGIE Class ity of S [facility] Ondanset Adverse Active Info Not Commo n becca Reaction Available Spiri t - [facility] Lisinopr Adverse Active headache, Comm on il Reaction numbness/tin Sp epifanio gling to R - [facility] arm [facility] Hydrocod Adverse Active Info Not Commo n one-Acet Reaction Available Spi rit aminophe - [facility] NO KNOWN Allergy Active [facility] ALLERGIE S Social History Social Habit Start Date Stop Date Quantity Comments [facility] History [facility] Housing Places Medical Ce nter Lived Exposure to 2022-07-02 2022-07-12 Not sure University SARS-CoV-2 00:00:00 11:01:00 [facility] (event) Branch Alcohol intake 2022-05-11 2022-05-11 Current [facility] es 00:00:00 00:00:00 non-drinker of Medical Ce nter alcohol (finding) History [facility] 2022-05-10 2022-05-10 [facility] Transport Med 00:00:00 00:00:[address] History [facility] 2022-05-10 2022-05-10 2 [facility] Housing Unable to 00:00:00 00:00:00 Medical Center Pay History SDOH 2022-05-10 2022-05-[address] [place] Housing Homeless 00:00:00 00:00:00 [facility] Center Last Year Tobacco use and 2016-08-05 2016-08-05 Never used ROBYN Morgan kegaro exposure 00:00:00 00:00:00 [facility] Center Sex Ass[birth year] At [birth year] ROBNY Vance 00:00:00 00:00:00 [facility] Center Smoking Status Start Date Stop Date Source Never smoked tobacco [facility] Medications Ordered Filled Start Stop Current Ordering Indication Dosage Frequency Signature Comments Components Source Medication Medication Date Date Medication? Clinician (SIG) Name Name iopamidol 2021-09 No [id number] 80mL 80 mL, Univers (ISOVUE 09-09 Intravenou ity o f 370-500 mL) 01:15: 00:24 s, ONCE, 1 [place] injection 00 :00 dose, On Medica l 80 mL Fri Branch 07/09/22 at 2015, Routine ondansetron 2021-09 No 4mg 4 mg, Slow Univers (ZOFRAN 09-09 IV Push, ity of (PF)) 00:45: 00:36 ONCE, 1 [place] injection 4 00 :00 dose, On Medi daniel mg Fri Branch 07/09/22 at 1945, VIVIENNE ibrutinib 2021-09 Yes 420mg QD Take [address] (Imbruvica) 0-31 mg by [facility] 420 mg Tab 12:20: mouth Medica l 21 daily. [place] tamsulosin 2021-09 Yes [id number] .4mg Take 1 U nivers 0.4 mg 24 0-24 capsule by ity of hr capsule 00:00: mouth in [place] 00 the Medical morning. [place] tamsulosin 2021-09 Yes [id number] .4mg Take 1 U nivers 0.4 mg 24 0-24 capsule by ity of hr capsule 00:00: mouth in [place] 00 the Medical morning. [place] tamsulosin 2021-09 Yes [id number] .4mg Take 1 U nivers 0.4 mg 24 0-24 capsule by ity of hr capsule 00:00: mouth in [place] 00 the Medical morning. [place] tamsulosin 2021-09 Yes [id number] .4mg Take 1 U nivers 0.4 mg 24 0-24 capsule by ity of hr capsule 00:00: mouth in [place] 00 the Medical morning. Branch tamsulosin 2021-09 Yes [id number] .4mg Take 1 U nivers 0.4 mg 24 0-24 capsule by ity of hr capsule 00:00: mouth in [place] 00 the Medical morning. Branch ibrutinib 2021-09 Yes 1{tbl} Take 1 Univ ers (IMBRUVICA) 0-23 tablet by ity of 420 mg Tab 14:20: mouth in [place] 29 the Medical morning. Branch ALBUTEROL 2021-09 Yes Inhale as Uni vers INHALE 0-23 needed. ity of 14:20: [address] ibrutinib 2021-09 Yes 1{tbl} Take 1 Univ ers (IMBRUVICA) 0-23 tablet by ity of 420 mg Tab 14:20: mouth in [place] 29 the Medical morning. Branch ALBUTEROL 2021-09 Yes Inhale as Uni vers INHALE 0-23 needed. ity of 14:20: [address] ibrutinib 2021-09 Yes 1{tbl} Take 1 Univ ers (IMBRUVICA) 0-23 tablet by ity of 420 mg Tab 14:20: mouth in [place] 29 the Medical morning. Branch ALBUTEROL 2021-09 Yes Inhale as Uni vers INHALE 0-23 needed. ity of 14:20: [address] ibrutinib 2021-09 Yes 1{tbl} Take 1 Univ ers (IMBRUVICA) 0-23 tablet by ity of 420 mg Tab 14:20: mouth in [place] 29 the Medical morning. Branch ALBUTEROL 2021-09 Yes Inhale as Uni vers INHALE 0-23 needed. ity of 14:20: [address] ibrutinib 2021-09 Yes 1{tbl} Take 1 Univ ers (IMBRUVICA) 0-23 tablet by ity of 420 mg Tab 14:20: mouth in [place] 29 the Medical morning. Branch ALBUTEROL 2021-09 Yes Inhale as Uni vers INHALE 0-23 needed. ity of 14:20: [address] cyclobenzap 2021-09 Yes [id number] 5mg Take 1 Univers rine 5 mg 0-23 tablet by ity o f tablet 00:00: mouth in [place] 00 the Medical morning Branch and 1 tablet at noon and 1 tablet in the evening. cyclobenzap 2021-09 Yes [id number] 5mg Take 1 Univers rine 5 mg 0-23 tablet by ity o f tablet 00:00: mouth in [place] 00 the Medical morning Branch and 1 tablet at noon and 1 tablet in the evening. cyclobenzap 2021-09 Yes [id number] 5mg Take 1 Univers rine 5 mg 0-23 tablet by ity o f tablet 00:00: mouth in [place] 00 the Medical morning Branch and 1 tablet at noon and 1 tablet in the evening. cyclobenzap 2021-09 Yes [id number] 5mg Take 1 Univers rine 5 mg 0-23 tablet by ity o f tablet 00:00: mouth in [place] 00 the Medical morning Branch and 1 tablet at noon and 1 tablet in the evening. cyclobenzap 2021-09 Yes [id number] 5mg Take 1 Univers rine 5 mg 0-23 tablet by ity o f tablet 00:00: mouth in [place] 00 the Medical morning Branch and 1 tablet at noon and 1 tablet in the evening. acetaminoph 2021-09- Yes [id number] 1{tbl} Take 1 U nivers en-codeine 0-23 10-30 tablet by ity of 300-30 mg 00:00: 04:59 mouth [place] tablet 00 :00 every 4 Medical (four) Branch hours as needed for Pain (scale 4-6) for up to 6 days. Indication s: acute pain acetaminoph 2021-09- Yes [id number] 1{tbl} Take 1 U nivers en-codeine 0-23 10-30 tablet by ity of 300-30 mg 00:00: 04:59 mouth [place] tablet 00 :00 every 4 Medical (four) Branch hours as needed for Pain (scale 4-6) for up to 6 days. Indication s: acute pain acetaminoph 2021-09- Yes [id number] 1{tbl} Take 1 U nivers en-codeine 0-23 10-25 tablet by ity of 300-30 mg 00:00: 04:59 mouth [place] tablet 00 :00 every 4 Medical (four) Branch hours as needed for Pain (scale 7-10) for up to 1 day. Indication s: acute pain cyclobenzap 2021-09- Yes [id number] 5mg Take 1 Univers rine 5 mg 0-23 10-25 tablet by ity of tablet 00:00: 04:59 mouth in [place] 00 :00 the Medical morning Branch and 1 tablet at noon and 1 tablet in the evening. Do all this for 1 day. acetaminoph 2021-09- No [id number] 1{tbl} Take 1 U nivers en-codeine 0-23 10-23 tablet by ity of 300-30 mg 00:00: 00:00 mouth [place] tablet 00 :00 every 4 Medical (four) Branch hours as needed for Pain (scale 4-6) for up to 7 days. Indication s: acute pain iopamidol 2021-09- No 65mL 65 mL, U nivers (ISOVUE 006-26 Intravenou ity o f 370-500 mL) 16:15: 16:15 s, ONCE, 1 [place] injection 00 :00 dose, On Medica l 65 mL [facility] Branch 06/26/22 at 1115, Routine lidocaine 2021-09- No 1{patch 1 Patch, Univers (LIDODERM) 006-26 } Topical, ity of 5 % (700 11:30: 23:13 Administer [place] mg/patch) 00 :00 over 12 Medical patch 1 Hours, Branch Patch ONCE, 1 dose, On [facility] 06/26/22 at 0630, Routine ondansetron 2021-09 Yes 4mg 4 mg, Unive rs (ZOFRAN-ODT 0-22 Oral, ity of ) 10:45: Q6HPRN, [place] disintegrat 00 Starting Medi daniel ing tablet on [facility] Branch 4 mg 06/26/22 at 0545, Until Discontinu ed, Routine, Nausea and Vomiting (N/V) cyclobenzap 2021-09 Yes 5mg 5 mg, Unive rs rine 0-22 Oral, TID, ity of (FLEXERIL) 10:30: First dose [place] tablet 5 mg 00 on Sat Medica l 06/26/22 Branch at 0530, Until Discontinu ed, VIVIENNE morpHINE (2 2021-09 Yes 4mg 4 mg, Slow Univers mg/mL) 0-22 IV Push, ity of injection 4 02:56: Q4HPRN, [place] mg 33 Starting Medical on Fri Branch 06/25/22 at 2156, Until Discontinu ed, Routine, Pain (scale 7-10) iopamidol 2021-09- No [id number] 200mL 200 mL, Univers (ISOVUE 006-25 Enteral, ity of 300-100 mL) 18:02: 18:35 TITRATE - [place] injection 00 :00 FOR Medical 200 mL PROCEDURE Branch USE, 1 dose, Starting on Tue06/25/22 at 1302, Until Tue06/25/22 at 1335, Routine, Surgery/Pr ocedure lidocaine 2021-09- No PRN, Univers 1% (PF) 006-25 Starting ity of (XYLOCAINE) 15:18: 15:18 on Tue [place] injection 20 :20 06/25/22 Medica l at 1018, Branch Until Tue06/25/22 at 1018, Routine ePHEDrine 2021-09- No Slow IV Univ ers 25 mg/5 mL 006-25 Push, ONCE it y of (5 mg/mL) 14:56: 18:15 INTRA [place] syringe 00 :09 PROCEDURE, Medica l Starting Branch on Tue06/25/22 at 0956, Until Tue06/25/22 at 1315, Routine, Intra-op piperacilli 2021-09- No IV Unive rs n-tazobacta 006-25 Piggyback, i ty of m (ZOSYN) 14:52: 18:15 ONCE INTRA [place] injection 00 :09 PROCEDURE, Medi daniel Starting Branch on Tue06/25/22 at 0952, Until Tue06/25/22 at 1315, VIVIENNE, Intra-op propofoL IV 2021-09- No IV Unive rs infusion 006-25 Infusion, ity o f 14:51: 18:15 ONCE INTRA [place] 00 :09 PROCEDURE, Medical Starting Branch on Tue06/25/22 at 0951, Until Tue06/25/22 at 1315, Routine, Intra-op lidocaine 2021-09- No Slow IV Univ ers 1% 006-25 Push, ONCE ity of (XYLOCAINE) 14:48: 18:15 INTRA [place] 100 mg/10 00 :09 PROCEDURE, Medi daniel mL (1 %) Starting Branch injection on Tue06/25/22 at 0948, Until Tue06/25/22 at 1315, Routine, Intra-op FENTanyl PF 2021-09- No Epidural, Univers (SUBLIMAZE 006-25 ONCE INTRA it y of (PF)) 14:45: 18:15 PROCEDURE, [place] injection 00 :09 Starting Medica l on Tue06/25/22 at 0945, Until Tue06/25/22 at 1315, Routine, Intra-op midazolam 2021-09- No IV Push, Uni vers (VERSED) 006-25 ONCE INTRA ity of injection 14:41: 18:15 PROCEDURE, [place] 00 :09 Starting Medical on Tue Branch 06/25/22 at 0941, Until Tue06/25/22 at 1315, Routine, Intra-op lactated 2021-09- No IV Univers ringers IV 006-25 Infusion, ity of infusion 14:37: 18:15 CONTINUOUS [place] 00 :09 PRN, Medical Starting Branch on Tue06/25/22 at 0937, Until Tue06/25/22 at 1315, Routine, Intra-op ibrutinib 2021-09 Yes 1{tbl} Take 1 Univ ers (IMBRUVICA) 0-20 tablet by ity of 420 mg Tab 15:04: mouth in [place] 41 the Medical morning. Branch ALBUTEROL 2021-09 Yes Inhale as Uni vers INHALE 0-20 needed. ity of 15:04: [address] ibrutinib 2021-09 Yes 1{tbl} Take 1 Univ ers (IMBRUVICA) 0-20 tablet by ity of 420 mg Tab 15:04: mouth in [place] 41 the Medical morning. Branch ALBUTEROL 2021-09 Yes Inhale as Uni vers INHALE 0-20 needed. ity of 15:04: [address] ibrutinib 2021-09 Yes 1{tbl} Take 1 Univ ers (IMBRUVICA) 0-20 tablet by ity of 420 mg Tab 15:04: mouth in [place] 41 the Medical morning. Branch ALBUTEROL 2021-09 Yes Inhale as Uni vers INHALE 0-20 needed. ity of 15:04: [address] Indomethaci 2021-09- No [facility] 0[facility]19 10-19 Starting ity of suppository 15:07: 18:22 on Tue [place] 00 :35 06/23/22 Medical at 1007, Branch Until Tue06/23/22 at 1322, Routine, Intra-op ibrutinib 2021-09 Yes 1{tbl} Take 1 Univ ers (IMBRUVICA) 0-19 tablet by ity of 420 mg Tab 13:22: mouth in [place] 35 the Medical morning. Branch ALBUTEROL 2021-09 Yes Inhale as Uni vers INHALE 0-19 needed. ity of 13:22: [address] tamsulosin 2021-09 Yes .4mg 0.4 mg, Univ ers (FLOMAX) 0-18 Oral, ity of capsule 0.4 22:45: DAILY, [place] mg 00 First dose Medical on [facility] 06/22/22 at 1745, Until Discontinu ed, Routine tamsulosin 2021-09 Yes .4mg 0.4 mg, Univ ers (FLOMAX) 0-18 Oral, ity of capsule 0.4 22:45: DAILY, [place] mg 00 First dose Medical on [facility] 06/22/22 at 1745, Until Discontinu ed, Routine aquaphilic 2021-09 Yes Topical, Uni vers ointment 0-18 PRN, ity of (AQUAPHOR) 22:43: Starting [place] ointment 14 on [facility] 06/22/22 Branch at 1743, Until Discontinu ed, Routine, put under pad for minor wound care aquaphilic 2021-09 Yes Topical, Uni vers ointment 0-18 PRN, ity of (AQUAPHOR) 22:43: Starting [place] ointment 14 on [facility] 06/22/22 Branch at 1743, Until Discontinu ed, Routine, put under pad for minor wound care tc 2021-09- No [id number] 4.9mCi 4.9 Univer s 99m-mebrofe 0-17 - millicurie i [place] 20:15: 20:10 , [place] injection 00 :00 Intravenou Medi daniel 4.9 s, ONCE, 1 Branch millicurie dose, On Tue22 at 1515, Routine ondansetron 2021-09 Yes 4mg 4 mg, Unive rs (ZOFRAN-ODT 0-17 Oral, ity of ) 02:00: Q8HPRN, [place] disintegrat 09 Starting Medi daniel ing tablet on [place] Branch 4 mg 06/20/22 at 2100, Until Discontinu ed, Routine, Nausea and Vomiting (N/V) ondansetron 2021-09- No 4mg 4 mg, Univ ers (ZOFRAN-ODT 0-17 - Oral, ity of ) 02:00: 10:31 Q8HPRN, [place] disintegrat 09 :55 Starting Medi daniel ing tablet on [place] Branch 4 mg 06/20/22 at 2100, Until [facility] 06/26/22 at 0531, Routine, Nausea and Vomiting (N/V) ibrutinib 2021-09 Yes 420mg 420 mg, Univ ers (IMBRUVICA) 0-15 Oral, ity of Tab 420 mg 14:00: DAILY, [place] First dose Medical on [facility] 06/19/22 at 0900, Until Discontinu ed, Routine ibrutinib 2021-09 Yes 420mg 420 mg, Univ ers (IMBRUVICA) 0-15 Oral, ity of Tab 420 mg 14:00: DAILY, [place] 00 First dose Medical on [facility] 06/19/22 at 0900, Until Discontinu ed, Routine iohexol 2021-09- No [id number] 80mL 80 mL, Uni vers (OMNIPAQUE 0-15 10-15 Intravenou it y of 350 07:45: 07:42 s, ONCE, 1 [place] BULK-100 00 :00 dose, On Medical mL) [facility] injection 06/19/22 80 mL at 0245, Routine enoxaparin 2021-09 Yes 40mg 40 mg, Unive rs (LOVENOX) 0-14 Subcutaneo ity of injection 22:00: [place], DAILY, [place] 40 mg 00 First dose Medical on Tue Branch 06/18/22 at 1700, Until Discontinu ed, Routine enoxaparin 2021-09 Yes 40mg 40 mg, Unive rs (LOVENOX) 0-14 Subcutaneo ity of injection 22:00: us, DAILY, [place] 40 mg 00 First dose Medical on Tue Branch 06/18/22 at 1700, Until Discontinu ed, Routine ondansetron 2021-09 No 4mg 4 mg, Univ ers (ZOFRAN) 0-14 10-17 Oral, ity of tablet 4 mg 11:45: 02:00 Q6HPRN, [place] 44 :25 Starting Medical on Tue Branch 06/18/22 at 0645, Until 06/20/22 at 2100, Routine, Nausea and Vomiting (N/V) acetaminoph 2021-09 Yes 1{tbl} 1 tablet, Univers en-codeine 0-14 Oral, ity of (TYLENOL 11:45: Q4HPRN, [place] #3) 300-30 21 Starting Medic al mg tablet 1 on Tue Branch tablet 06/18/22 at 0645, Until Discontinu ed, Routine, Pain (scale 4-6) acetaminoph 2021-09 Yes 1{tbl} 1 tablet, Univers en-codeine 0-14 Oral, ity of (TYLENOL 11:45: Q4HPRN, [place] #3) 300-30 21 Starting Medic al mg tablet 1 on Tue Branch tablet 06/18/22 at 0645, Until Discontinu ed, Routine, Pain (scale 4-6) morpHINE (2 2021-09 Yes 2mg 2 mg, Slow Univers mg/mL) 0-14 IV Push, ity of injection 2 11:45: Q4HPRN, [place] mg 14 Starting Medical on Tue Branch 06/18/22 at 0645, Until Discontinu ed, Routine, Pain (scale 7-10) morpHINE (2 2021-09- No 2mg 2 mg, Slow Univers mg/mL) 0-14 06-26 IV Push, ity of injection 2 11:45: 02:56 Q4HPRN, [place] mg 14 :44 Starting Medical on Tue Branch 06/18/22 at 0645, Until Tue06/25/22 at 2156, Routine, Pain (scale 7-10) metroNIDAZO 2021-09 No 500mg 500 mg, U nivers LE (FLAGYL) 0-14 10-19 Oral, Q8H, i ty of tablet 500 11:00: 09:58 15 doses, [place] mg 00 :00 First dose Medical on Tue06/18/22 at 0600, Last dose on Tue06/22/22 at 2200, Routine
Reason for Anti-Infec tive: Empiric Therapy for Suspected Infection< br>Empiric Therapy Site: Abdominal< br>Duratio n of therapy: 5 days gadobenate 2021-09- No [id number] .2mL/kg 10.06 mL Univers dimeglumine 006-18 (0.2 mL/kg i ty of (MULTIHANCE 10:15: 09:53 ?50.3 kg), [place] -5 mL) 00 :00 Intravenou Medical injection s, ONCE, 1 Bran ch 10.06 mL dose, On Tue06/18/22 at 0515, Routine cefTRIAXone 2021-09- No 1000mg 1,000 mg, Univers (ROCEPHIN) 006-22 Intravenou it y of 1,000 mg in 06:30: 06:38 s, Q24H [place] NaCl 0.9% 00 :00 ABX, 5 Medical (NS) 50 mL doses, Branch MINI-BAG First dose on Tue06/18/22 at 0130, Last dose on Tue06/22/22 at 0130, Administer over 30 Minutes, 50 mL
Reas on for Anti-Infec tive: Empiric Therapy for Suspected Infection< br>Empiric Therapy Site: Abdominal< br>Duratio n of therapy: 72 hours acetaminoph 2021-09 Yes 650mg 650 mg, Un brayan en 0-14 Oral, ity of (TYLENOL) 05:01: Q6HPRNConnie tablet 650 49 Starting Medic al mg on Tue06/18/22 at 0001, Until Discontinu ed, Routine, Pain (scale 1-3) acetaminoph 2021-09 Yes 650mg 650 mg, Un brayan en 0-14 Oral, ity of (TYLENOL) 05:01: Q6HPRN, [place] tablet 650 49 Starting Medic al mg on Tue06/18/22 at 0001, Until Discontinu ed, Routine, Pain (scale 1-3) albuterol 2021-09 Yes 1{puff} 1 Puff, Un brayan (VENTOLIN) 0-14 Inhalation ity of inhaler 1 04:59: , Q4HPRN, [place] Puff 21 Starting Medical on [facility] Branch 06/17/22 at 2359, Until Discontinu ed, Wheezing, Shortness of Breath, Bronchospa sm, Chest tightness albuterol 2021-09 Yes 1{puff} 1 Puff, Un brayan (VENTOLIN) 0-14 Inhalation ity of inhaler 1 04:59: , Q4HPRN, [place] Puff 21 Starting Medical on [facility] Branch 06/17/22 at 2359, Until Discontinu ed, Wheezing, Shortness of Breath, Bronchospa sm, Chest tightness iopamidol 2021-09- No [id number] 70mL 70 mL, Univers (ISOVUE 0-17 06- Intravenou ity o f 370-500 mL) 23:15: 22:16 s, ONCE, 1 [place] injection 00 :00 dose, On Medica l 70 mL [facility] Branch 06/17/22 at 1815, Routine ondansetron 2021-09 No 4mg 4 mg, Slow Univers (ZOFRAN 0- IV Push, ity of (PF)) 20:00: 21:15 ONCE, 1 [place] injection 4 00 :00 dose, On Medi daniel mg [facility] Branch 06/17/22 at 1500, STAT morpHINE (4 2021-09 No 4mg 4 mg, Slow Univers mg/mL) 0- IV Push, ity of injection 4 20:00: 21:14 ONCE, 1 [place] mg 00 :00 dose, On Medical [facility] 06/17/22 at 1500, VIVIENNE ibrutinib Yes 420mg QD Take [address] (Imbruvica) 9-15 [facility] by [facility] mg Tab 18:01: mouth Medica l 05 daily. Center ondansetron 2021- No 4mg Take [address] [facility] (ZOFRAN-ODT 9-14 09-21 tablet (4 Brandi kes ) 4 MG 00:00: 23:59 mg total) Medic al disintegrat 00 :00 by mouth Cent er ing tablet every 8 (eight) hours as needed for Nausea for up to 7 days. ondansetron 2021- No 4mg Take 1 [facility] [...] times per tablet daily for 5 days. amoxicillin 2021- No 1{tbl} Q.5D Take [...] tablet by Brandi akers hen (NORCO 00:00: 00:00 mouth Medic [...] for up to 7 days. HYDROcodone 2021- No 1{tbl} Take [address] -acetaminop 05-11 tablet by Brandi gómez ([facility] 00:00: 00:00 mouth Medic al 5-325) [...] HI St -acetaminop 05-11 tablet by Brandi gómez (NORCO 00:00: 23:59 mouth Medic al 5-325) [...] 4-11 Kamara Spirit 00:00: - [facility] 00 [facility] Fluticasone Fluticasone Yes Kosta 1 spray in Common Propionate Propionate Kamara each Spi rit nostril - [facility] ProAir ProAir Yes Kosta 2 puffs as Co mmon RespiClick RespiClick Kamara needed S pirit [facility] Vitamin Vitamin Yes Kosta not Common B-12 B-12 Kamara defined Spirit [facility] Centrum Centrum Yes Kosta not Common Adults Adults Kamara defined [facility] Allopurinol Allopurinol Yes Kosta 1 tablet Common Kamara [facility] Vital Signs Vital Name Observation Time Observation Value Comments Source Systolic blood 2022-07-12 17:06:00 120 mm[Hg] Univer sity of pressure [facility] Diastolic blood 2022-07-12 17:06:00 77 mm[Hg] Unive rsity of pressure [facility] Heart rate 2022-07-12 17:06:00 71 /min Universi ty of [facility] Body temperature 2022-07-12 17:06:00 36.61 Yamilex [facility] ersity of [facility] Respiratory rate 2022-07-12 17:06:00 18 /min Univ ersity of [facility] Body height 2022-07-12 17:06:00 157.5 cm Universi ty of [facility] Body weight 2022-07-12 17:06:00 52.98 kg Universi ty of [facility] BMI 2022-07-12 17:06:00 21.36 kg/m2 Universi ty of [facility] Branch Systolic blood 2022-07-10 03:00:00 123 mm[Hg] Univer sity of pressure [facility] Diastolic blood 2022-07-10 03:00:00 80 mm[Hg] Unive rsity of [facility] Heart rate 2022-07-10 03:00:00 81 /min Universi ty of [facility] Respiratory rate 2022-07-10 03:00:00 16 /min [facility] Oxygen saturation in 2022-07-10 03:00:00 95 /min [facility] Arterial blood by [facility] Pulse oximetry Branch Body temperature 2022-07-09 21:24:00 36.56 Yamilex Univ ersity of [facility] Body weight 2022-07-09 21:24:00 53.071 kg [facility]i [facility] BMI 2022-07-09 21:24:00 21.40 kg/m2 Universi ty of [facility] Systolic blood 2022-06-27 13:08:00 121 mm[Hg] Univer sity of pressure [facility] Branch Diastolic blood 2022-06-27 13:08:00 78 mm[Hg] Unive rsity of [facility] Heart rate 2022-06-27 13:08:00 74 /min [facility] Body temperature 2022-06-27 13:08:00 36.44 Yamilex Univ ersity of [facility] Respiratory rate 2022-06-27 13:08:00 18 /min Univ ersity of [facility] Oxygen saturation in 2022-06-27 13:08:00 94 /min University of Arterial blood by [facility] Pulse oximetry Branch Body weight 2022-06-24 05:00:00 53.071 kg Universi ty [facility] BMI 2022-06-24 05:00:00 21.40 kg/m2 [facility] Body height 2022-06-18 10:38:00 157.5 cm [facility] Systolic blood 2022-06-23 09:53:00 128 mm[Hg] Univer sity of [facility] Diastolic blood 2022-06-23 09:53:00 80 mm[Hg] Unive rsity of [facility] Heart rate 2022-06-23 09:53:00 64 /min [facility] Body temperature 2022-06-23 09:53:00 36.44 Yamilex Univ ersity of [facility] Respiratory rate 2022-06-23 09:53:00 18 /min Univ ersity of [facility] Oxygen saturation in 2022-06-23 09:53:00 98 /min University of Arterial blood by [facility] daniel Pulse oximetry Branch Body weight 2022-06-23 05:00:00 51.982 kg [facility] BMI 2022-06-23 05:00:00 21.40 kg/m2 [facility] Body height 2022-06-18 10:38:00 157.5 cm [facility] WEIGHT 2022-05-14 23:49:00 57.788 kg WEIGHT 2022-05-14 23:49:00 57.788 kg WEIGHT 2022-05-14 23:49:00 57.788 kg Systolic blood 2022-06-27 13:08:00 121 mm[Hg] Univer sity of [facility] Diastolic blood 2022-06-27 13:08:00 78 mm[Hg] Unive rsity of pressure [facility] Heart rate 2022-06-27 13:08:00 74 /min Universi ty of [facility] Body temperature 2022-06-27 13:08:00 36.44 Yamilex Univ ersity of [facility] Respiratory rate 2022-06-27 13:08:00 18 /min Univ ersity of [facility] Oxygen saturation in 2022-06-27 13:08:00 94 /min University of Arterial blood by [facility] Pulse oximetry Branch Systolic blood 2022-06-26 16:21:00 114 mm[Hg] Univer sity of pressure [facility] Diastolic blood 2022-06-26 16:21:00 70 mm[Hg] Unive rsity of pressure [facility] Heart rate 2022-06-26 16:21:00 88 /min Universi ty [facility] Body temperature 2022-06-26 16:21:00 36.22 Yamilex Univ [facility] Respiratory rate 2022-06-26 16:21:00 18 /min Univ ersity of [facility] Oxygen saturation in 2022-06-26 16:21:00 93 /min University of Arterial blood by [facility] Pulse oximetry Branch Body weight 2022-06-24 05:00:00 53.071 kg [facility] BMI 2022-06-24 05:00:00 21.40 kg/m2 [facility] Body height 2022-06-18 10:38:00 157.5 cm [facility] Systolic blood 2022-05-19 11:33:00 133 mm[Hg] [facility] Diastolic blood 2022-05-19 11:33:00 74 mm[Hg] [facility] S t [facility] Heart rate 2022-05-19 11:33:00 80 /min [facility] Body temperature 2022-05-19 11:33:[address] [facility] Respiratory rate 2022-05-19 11:33:00 18 /min [facility] Oxygen saturation in 2022-05-19 11:33:00 97 /min [facility] Arterial blood by Medical Ce nter Pulse oximetry Body weight 2022-05-14 23:49:00 57.788 kg [facility] BMI 2022-05-14 23:49:00 23.30 kg/m2 [facility] Systolic blood 2022-05-11 15:14:00 132 mm[Hg] [facility] Diastolic blood 2022-05-11 15:14:00 84 mm[Hg] [facility] Heart rate 2022-05-11 15:14:00 89 /min [facility] Body temperature 2022-05-11 15:14:[address] [facility] Respiratory rate 2022-05-11 15:14:00 18 /min [facility] Oxygen saturation in 2022-05-11 15:14:00 94 /min [facility] Arterial blood by Medical Ce nter Pulse oximetry Procedures Procedure Date / Time Performing Source Performed Clinician CT ABDOMEN PELVIS W CONTRAST 2022-07-10 Chris Zuniga Uni versity of 00:27:49 Laii [facility] CBC WITH DIFF 2022-07-09 Britta [facility] of 22:40:00 [facility] LIPASE 2022-07-09 [facility] of 22:32:00 [facility] COMP. METABOLIC PANEL ([id number]) 2022-07-09 Casie Callejas Un iversity of 22:32:00 [facility] CBC WITH DIFF 2022-06-27 Cherie Schmidt [facility] of 09:50:00 [facility] BASIC METABOLIC PANEL (NA, K, 2022-06-27 Cherie Schmidt Un iversity of CL, CO2, GLUCOSE, BUN, 09:50:00 [place] [facility] CREATININE, CA) Branch MAGNESIUM 2022-06-27 Chreie Schmidt [facility] of 09:50:00 [facility] MAGNESIUM 2022-06-27 [facility] of 09:50:00 [facility] BASIC METABOLIC PANEL (NA, K, 2022-06-27 Cherie Schmidt Un iversity of CL, CO2, GLUCOSE, BUN, 09:50:00 [place] [facility] CREATININE, CA) Branch CBC WITH DIFF 2022-06-27 Cherie Schmidt [facility] of 09:50:00 [facility] CBC WITH DIFF 2022-06-26 Brayan [facility] of 11:30:00 [facility] BASIC METABOLIC PANEL (NA, K, 2022-06-26 [facility] Un iversity of CL, CO2, GLUCOSE, BUN, 11:30:00 [place] [facility] CREATININE, CA) Branch MAGNESIUM 2022-06-26 Brayan [facility] of 11:30:00 [facility] D-DIMER 2022-06-26 Brayan, [facility] of 11:30:00 [facility] TROPONIN I 2022-06-26 Iraj [facility] of 11:30:00 [facility] N-TERMINAL PRO-BNP 2022-06-26 Iraj [facility] of 11:30:00 [facility] MAGNESIUM 2022-06-26 Brayan, [facility] of 11:30:00 [facility] TROPONIN I 2022-06-26 Iraj, [facility] of 11:30:00 [facility] BASIC METABOLIC PANEL (NA, K, 2022-06-26 Cherie Schmidt Un iversity of CL, CO2, GLUCOSE, BUN, 11:30:00 [place] [facility] CREATININE, CA) Branch CBC WITH DIFF 2022-06-26 Brayan, [facility] of 11:30:00 [facility] D-DIMER 2022-06-26 [facility] 11:30[facility]00 [facility] N-TERMINAL PRO-BNP 2022-06-26 Iraj [facility] of 11:30:00 [facility] HB ECG ROUTINE & RHYTHM STRIP 2022-06-26 Marin Long Un iversity of 11:04:45 [facility] HB ECG ROUTINE & RHYTHM STRIP 2022-06-26 Marin Long Un iversity of 11:04:45 [facility] XR CHEST 1 2022-06-26 Marin Long of 10:55:00 [facility] XR KUB 2022-06-26 Marin Long [facility] of 10:55:00 [facility] XR CHEST 1 VW 2022-06-26 Marin Long [facility] of 10:55:00 [facility] XR KUB 2022-06-26 Mercedes [facility] of 10:55:00 [facility] HEPATIC FUNCTION PANEL ([id number]) 2022-06-25 Jose Ramon Johnson U niversity of (ALB,T.PRO,BILI 23:02:00 [place] [facility] T,BU/BC,ALT,AST,ALK PHOS) Branch HEPATIC FUNCTION PANEL ([id number]) 2022-06-25 Jose Ramon Johnson U niversity of (ALB,T.PRO,BILI 23:02:00 [facility] T,BU/BC,ALT,AST,ALK PHOS) Branch POCT GLUCOSE (AUTOMATED) 2022-06-25 Heath Dia [facility] ersity of 20:13:00 [facility] POCT GLUCOSE (AUTOMATED) 2022-06-25 Heath Dia [facility] ersity of 20:13:00 [facility] BASIC METABOLIC PANEL (NA, K, 2022-06-24 Cherie Schmidt Un iversity of CL, CO2, GLUCOSE, BUN, 14:28:00 [place] [facility] CREATININE, CA) Branch MAGNESIUM 2022-06-24 Cherie Schmidt [facility] 14:28:00 [facility] HEPATIC FUNCTION PANEL ([id number]) 2022-06-24 Jose Ramon Johnson U niversity of (ALB,T.PRO,BILI 14:28:00 [facility] T,BU/BC,ALT,AST,ALK PHOS) Branch MAGNESIUM 2022-06-24 Cherie Schmidt [facility] of 14:28:00 [facility] HEPATIC FUNCTION PANEL ([id number]) 2022-06-24 Jose Ramon Johnson U niversity of (ALB,T.PRO,BILI 14:28:00 [place] [facility] T,BU/BC,ALT,AST,ALK PHOS) Branch BASIC METABOLIC PANEL (NA, K, 2022-06-24 Cherie Schmidt Un iversity of CL, CO2, GLUCOSE, BUN, 14:28:00 [place] [facility] CREATININE, CA) Branch MAGNESIUM 2022-06-24 Cherie Schmidt [facility] of 14:28:00 [facility] BASIC METABOLIC PANEL (NA, K, 2022-06-24 hCerie Schmidt Un iversity of CL, CO2, GLUCOSE, BUN, 14:28:00 [place] [facility] CREATININE, CA) Branch CBC WITH DIFF 2022-06-24 Cherie Schmidt [facility] of 10:11:00 [facility] CBC WITH DIFF 2022-06-24 Cherie Schmidt [facility] of 10:11:00 [facility] CBC WITH DIFF 2022-06-24 Cherie Schmidt [facility] of 10:11:00 [facility] BASIC METABOLIC PANEL (NA, K, 2022-06-23 Cherie Schmidt Un iversity of CL, CO2, GLUCOSE, BUN, 21:07:00 [place] [facility] CREATININE, CA) Branch PROTHROMBIN TIME / INR 2022-06-23 Cherie Schmidt [facility] y of 21:07:00 [facility] HEPATIC FUNCTION PANEL ([id number]) 2022-06-23 Elizabeth Jose Ramon U niversity of (ALB,T.PRO,BILI 21:07:00 [place] [facility] T,BU/BC,ALT,AST,ALK PHOS) Branch HEPATIC FUNCTION PANEL ([id number]) 2022-06-23 Jose Ramon Johnson U niversity of (ALB,T.PRO,BILI 21:07:00 [place] [facility] T,BU/BC,ALT,AST,ALK PHOS) Branch BASIC METABOLIC PANEL (NA, K, 2022-06-23 Cherie Schmidt Un iversity of CL, CO2, GLUCOSE, BUN, 21:07:00 [place] [facility] CREATININE, CA) Branch PROTHROMBIN TIME / INR 2022-06-23 Cherie Schmidt [facility] y of 21:07:00 [facility] HEPATIC FUNCTION PANEL ([id number]) 2022-06-23 Jose Ramon Johnson U niversity of (ALB,T.PRO,BILI 21:07:00 [place] [facility] T,BU/BC,ALT,AST,ALK PHOS) Branch BASIC METABOLIC PANEL (NA, K, 2022-06-23 Cherie Schmidt Un iversity of CL, CO2, GLUCOSE, BUN, 21:07:00 [place] [facility] CREATININE, CA) Branch PROTHROMBIN TIME / INR 2022-06-23 Cherie Schmidt [facility] y of 21:07:00 [facility] INTUBATION 2022-06-23 Declan Carlin [facility] of 15:00:00 [facility] ENDOSCOPIC RETROGRADE 2022-06-23 [facility] of CHOLANGIOPANCRETOGRAPHY 14:40:00 [facility] ENDOSCOPIC RETROGRADE 2022-06-23 [facility] CHOLANGIOPANCRETOGRAPHY 14:40:00 [facility] ENDOSCOPIC RETROGRADE 2022-06-23 [facility] of CHOLANGIOPANCRETOGRAPHY 14:40:00 [facility] ERCP (ENDO) 2022-06-23 [facility] of 14:30:10 [facility] ERCP (ENDO) 2022-06-23 [facility] of 14:30:10 [facility] PROTHROMBIN TIME / INR 2022-06-23 Cruz Galoit y of 10:05:00 [facility] COMP. METABOLIC PANEL ([id number]) 2022-06-23 Cruz Galo iversity of 10:05:00 [facility] CBC WITH DIFF 2022-06-23 Cruz Galo of 10:05:00 [facility] COMP. METABOLIC PANEL ([id number]) 2022-06-23 Cruz Galo iversity of 10:05:00 [facility] CBC WITH DIFF 2022-06-23 Cruz Galo of 10:05:00 [facility] PROTHROMBIN TIME / INR 2022-06-23 Cruz Galo [facility] y of 10:05:00 [facility] COMP. METABOLIC PANEL ([id number]) 2022-06-23 Cruz Gaol iversity of 10:05:00 [facility] CBC WITH DIFF 2022-06-23 Cruz Galo of 10:05:00 [facility] PROTHROMBIN TIME / INR 2022-06-23 Cruz Galo [facility] y of 10:05:00 [facility] CBC WITH DIFF 2022-06-22 [facility] of 06:07:00 [facility] BASIC METABOLIC PANEL (NA, K, 2022-06-22 Cherie Schmidt iversity of CL, CO2, GLUCOSE, BUN, 06:07:00 [facility] ical CREATININE, CA) Branch [facility] 2022-06-22 Brayan, [facility] of 06:07:00 [facility] HEPATIC FUNCTION PANEL ([id number]) 2022-06-22 April Cardoza niversity of (ALB,T.PRO,BILI 06:07:00 [facility],BU/BC,ALT,AST,ALK PHOS) Branch MAGNESIUM 2022-06-22 Brayan [facility] of 06:07:00 [facility] HEPATIC FUNCTION PANEL ([id number]) 2022-06-22 April Cardoza U niversity of (ALB,T.PRO,BILI 06:07:00 [place] [facility] T,BU/BC,ALT,AST,ALK PHOS) Branch BASIC METABOLIC PANEL (NA, K, 2022-06-22 Cherie Schmidt Un iversity of CL, CO2, GLUCOSE, BUN, 06:07:00 [place] [facility] CREATININE, CA) Branch CBC WITH DIFF 2022-06-22 Brayan [facility] of 06:07:00 [facility] MAGNESIUM 2022-06-22 Brayan, [facility] of 06:07:00 [facility] HEPATIC FUNCTION PANEL ([id number]) 2022-06-22 April Cardoza niversity of (ALB,T.PRO,BILI 06:07:00 [facility] T,BU/BC,ALT,AST,ALK PHOS) Branch BASIC METABOLIC PANEL (NA, K, 2022-06-22 Cherie Schmidt Un iversity of CL, CO2, GLUCOSE, BUN, 06:07:00 [place] [facility] CREATININE, CA) Branch CBC WITH DIFF 2022-06-22 Brayan [facility] of 06:07:00 [facility] HEPATOBILIARY 2022-06-21 Glenroy [facility] of 22:00:00 [facility] HEPATOBILIARY 2022-06-21 [place], [facility] of 22:00:00 [facility] HEPATOBILIARY 2022-06-21 Glen[facility] of 22:00:00 [facility] PROTHROMBIN TIME / INR 2022-06-21 [facility] y of 10:51:00 [facility] CBC WITH DIFF 2022-06-21 Glen[facility] of 10:51:00 [facility] BASIC METABOLIC PANEL (NA, K, 2022-06-21 Branden Tim Un iversity of CL, CO2, GLUCOSE, BUN, 10:51:00 [place] [facility] CREATININE, CA) Branch HEPATIC FUNCTION PANEL ([id number]) 2022-06-21 Branden Tim niversity of (ALB,T.PRO,BILI 10:51:00 [place] [facility] T,BU/BC,ALT,AST,ALK PHOS) Branch HEPATIC FUNCTION PANEL ([id number]) 2022-06-21 Branden Tim U niversity of (ALB,T.PRO,BILI 10:51:00 [place] [facility] T,BU/BC,ALT,AST,ALK PHOS) Branch BASIC METABOLIC PANEL (NA, K, 2022-06-21 Branden Tim Un iversity of CL, CO2, GLUCOSE, BUN, 10:51:00 [place] [facility] CREATININE, CA) Branch CBC WITH DIFF 2022-06-21 Branden Tim of 10:51:00 [facility] PROTHROMBIN TIME / INR 2022-06-21 Branden Tim Universit y of 10:51:00 [facility] HEPATIC FUNCTION PANEL ([id number]) 2022-06-21 Branden Tim U niversity of (ALB,T.PRO,BILI 10:51:00 [place] [facility] T,BU/BC,ALT,AST,ALK PHOS) Branch BASIC METABOLIC PANEL (NA, K, 2022-06-21 Branden Tim Un iversity of CL, CO2, GLUCOSE, BUN, 10:51:00 [place] [facility] CREATININE, CA) Branch CBC WITH DIFF 2022-06-21 Branden Tim of 10:51:00 [facility] PROTHROMBIN TIME / INR 2022-06-21 Branden Tim Universit y of 10:51:00 [facility] CBC WITH DIFF 2022-06-20 Michelle Grande of 06:45:00 [facility] COMP. METABOLIC PANEL ([id number]) 2022-06-20 Michelle Grande Un iversity of 06:45:00 [facility] PROTHROMBIN TIME / INR 2022-06-20 Michelle Grande Universit y of 06:45:00 [facility] COMP. METABOLIC PANEL ([id number]) 2022-06-20 Michelle Grande Un iversity of 06:45:00 [facility] CBC WITH DIFF 2022-06-20 Michelle Grande of 06:45:00 [facility] PROTHROMBIN TIME / INR 2022-06-20 Michelle Grande Universit y of 06:45:00 [facility] COMP. METABOLIC PANEL ([id number]) 2022-06-20 Michelle Grande Un iversity of 06:45:00 [facility] CBC WITH DIFF 2022-06-20 Michelle Grande [facility] of 06:45:00 [facility] PROTHROMBIN TIME / INR 2022-06-20 Michelle Grande [facility] y of 06:45:00 [facility] HEPATITIS C VIRUS (HCV) BY 2022-06-19 Michelle Grande rsity of QUANTITATIVE NAAT 10:56:00 [facility] BASIC METABOLIC PANEL (NA, K, 2022-06-19 Michelle Grande Un iversity of CL, CO2, GLUCOSE, BUN, 10:56:00 [place] [facility] CREATININE, CA) Branch MAGNESIUM 2022-06-19 Michelle Grande [facility] of 10:56:00 [facility] MAGNESIUM 2022-06-19 Michelle Grande [facility] of 10:56:00 [facility] BASIC METABOLIC PANEL (NA, K, 2022-06-19 Michelle Grande Un iversity of CL, CO2, GLUCOSE, BUN, 10:56:00 [place] [facility] CREATININE, CA) Branch HEPATITIS C VIRUS (HCV) BY 2022-06-19 Michelle Grande rsity of QUANTITATIVE NAAT 10:56:00 [facility] MAGNESIUM 2022-06-19 Michelle Grande [facility] of 10:56:00 [facility] BASIC METABOLIC PANEL (NA, K, 2022-06-19 Michelle Grande Un iversity of CL, CO2, GLUCOSE, BUN, 10:56:00 [place] [facility] CREATININE, CA) Branch HEPATITIS C VIRUS (HCV) BY 2022-06-19 Michelle Grande rsity of QUANTITATIVE NAAT 10:56:00 [facility] CT ANGIOGRAM ABDOMEN/PELVIS 2022-06-19 Michelle Grande ersity of 08:05:28 [facility] CT ANGIOGRAM ABDOMEN/PELVIS 2022-06-19 Michelle Grande ersity of 08:05:28 [facility] CT ANGIOGRAM ABDOMEN/PELVIS 2022-06-19 Michelle Grande ersity of 08:05:28 [facility] MR ABDOMEN W WO CONTRAST MRCP 2022-06-18 Cruz Galo Un iversity of 09:58:00 [facility] MR ABDOMEN W WO CONTRAST MRCP 2022-06-18 Cruz Galo Un iversity of 09:58:00 [facility] MR ABDOMEN W WO CONTRAST MRC 2022-06-18 Cruz Galo Un iversity of 09:58:00 [facility] BLOOD CULTURE SCREEN 2022-06-18 Iraj [facility] of 06:57:00 [facility] BLOOD CULTURE SCREEN 2022-06-18 Iraj [facility] of 06:57:00 [facility] BLOOD CULTURE SCREEN 2022-06-18 Iraj [facility] of 06:57:00 [facility] URINALYSIS 2022-06-17 Rylee [facility] of 22:32:00 [facility] URINALYSIS 2022-06-17 Rylee [facility] of 22:32:00 [facility] URINALYSIS 2022-06-17 Rylee [facility] of 22:32:00 [facility] CT ABDOMEN PELVIS W CONTRAST 2022-06-17 Yoni Mckee Uni versity of 22:20:00 [facility] CT ABDOMEN PELVIS W CONTRAST 2022-06-17 Yoni Mckee Uni versity of 22:20:00 [facility] CT ABDOMEN PELVIS W CONTRAST 2022-06-17 Yoni Mckee Uni versity of 22:20:00 [facility] LACTIC ACID WHOLE BLOOD 2022-06-17 Yoni Mckee [facility] ty of 21:18:00 [facility] LACTIC ACID WHOLE BLOOD 2022-06-17 Yoni Mckee [facility] ty of 21:18:00 [facility] LACTIC ACID WHOLE BLOOD 2022-06-17 Yoni Mckee [facility] ty of 21:18:00 [facility] LAB ONLY COVID INTERPRETATION 2022-06-17 Yoni Mckee Un iversity of 20:04:00 [facility] CBC WITH DIFF 2022-06-17 Yoni Mckee [facility] of 20:04:00 [facility] BASIC METABOLIC PANEL (NA, K, 2022-06-17 Yoni Mckee Un iversity of CL, CO2, GLUCOSE, BUN, 20:04:00 [facility] ical CREATININE, CA) Branch HEPATIC FUNCTION PANEL ([id number]) 2022-06-17 Yoni Mckee U niversity of (ALB,T.PRO,BILI 20:04:00 Steven [place] [facility] T,BU/BC,ALT,AST,ALK PHOS) Branch LIPASE 2022-06-17 Yoni Mckee of 20:04:00 [facility] TROPONIN I 2022-06-17 Yoni Mckee of 20:04:00 [facility] N-TERMINAL PRO-BNP 2022-06-17 Yoni Mckee [facility] of 20:04:00 [facility] COVID-19 (ID NOW RAPID TESTING) 2022-06-17 Yoni Mckee Campbell of 20:04:00 [facility] GALV ONLY - INFLUENZA A B RSV 2022-06-17 Yoni Mckee iversity of PCR 20:04:00 [facility] LAB ONLY COVID INTERPRETATION 2022-06-17 Yoni Mckee iversity of 20:04:00 [facility] ALPHA FETOPROTEIN 2022-06-17 Harjinder [facility] of 20:04:00 [facility] HEPATITIS B SURFACE ANTIBODY 2022-06-17 [facility] of 20:04:00 [facility] HEPATITIS B SURFACE ANTIGEN 2022-06-17 Harjinder [facility] ersity of 20:04:00 [facility] HEPATITIS A VIRUS ANTIBODY IGM 2022-06-17 Harjinder [facility] niversity of 20:04:00 [facility] LIPASE 2022-06-17 Yoni Mckee of 20:04:00 [facility] TROPONIN I 2022-06-17 Yoni Mckee of 20:04:00 [facility] HEPATIC FUNCTION PANEL (21523) 2022-06-17 Yoni Mckee niversity of (ALB,T.PRO,BILI 20:04:00 [facility] T,BU/BC,ALT,AST,ALK PHOS) Branch BASIC METABOLIC PANEL (NA, K, 2022-06-17 Yoni Mckee iversity of CL, CO2, GLUCOSE, BUN, 20:04:00 [facility] ical CREATININE, CA) Branch ALPHA FETOPROTEIN 2022-06-17 Harjinder [facility] of 20:04:00 [facility] CBC WITH DIFF 2022-06-17 Yoni Mckee of 20:04:00 [facility] HEPATITIS B SURFACE ANTIBODY 2022-06-17 Michelle Grande Uni versity of 20:04:00 [facility] HEPATITIS B SURFACE ANTIGEN 2022-06-17 Michelle Grande [facility] ersity of 20:04:00 [facility] HEPATITIS A VIRUS ANTIBODY IGM 2022-06-17 Michelle Grande U niversity of 20:04:00 [facility] GALV ONLY - INFLUENZA A B RSV 2022-06-17 Yoni Mckee iversity of PCR 20:04:00 [facility] N-TERMINAL PRO-BNP 2022-06-17 Yoni Mckee Campbell of 20:04:00 [facility] COVID-19 (ID NOW RAPID TESTING) 2022-06-17 Yoni Mckee Campbell of 20:04:00 [facility] LAB ONLY COVID INTERPRETATION 2022-06-17 Yoni Mckee iversity of 20:04:00 [facility] LIPASE 2022-06-17 Yoni Mckee Campbell of 20:04:00 [facility] TROPONIN I 2022-06-17 Yoni Mkcee Campbell of 20:04:00 [facility] HEPATIC FUNCTION PANEL (47931) 2022-06-17 Yoni Mckee niversity of (ALB,T.PRO,BILI 20:04:00 [facility],BU/BC,ALT,AST,ALK PHOS) Branch BASIC METABOLIC PANEL (NA, K, 2022-06-17 Yoni Mckee iversity of CL, CO2, GLUCOSE, BUN, 20:04:00 [facility] ical CREATININE, CA) Branch ALPHA FETOPROTEIN 2022-06-17 Michelle Grande Campbell of 20:04:00 [facility] CBC WITH DIFF 2022-06-17 Yoni Mckee Campbell of 20:04:00 [facility] HEPATITIS B SURFACE ANTIBODY 2022-06-17 Michelle Grande Uni versity of 20:04:00 [facility] HEPATITIS B SURFACE ANTIGEN 2022-06-17 Michelle Grande ersity of 20:04:00 [facility] HEPATITIS A VIRUS ANTIBODY IGM 2022-06-17 Michelle Grande U niversity of 20:04:00 [facility] GALV ONLY - INFLUENZA A B RSV 2022-06-17 Yoni Mckee Un iversity of PCR 20:04:00 [facility] N-TERMINAL PRO-BNP 2022-06-17 Yoni Mckee Campbell of 20:04:00 [facility] COVID-19 (ID NOW RAPID TESTING) 2022-06-17 Yoni Mckee Campbell of 20:04:00 [facility] HB ECG ROUTINE & RHYTHM STRIP 2022-06-17 Yoni Mckee Un iversity of 19:51:18 [facility] HB ECG ROUTINE & RHYTHM STRIP 2022-06-17 Yoni Mckee Un iversity of 19:51:18 [facility] HB ECG ROUTINE & RHYTHM STRIP 2022-06-17 Yoni Mckee Un iversity of 19:51:18 [facility] CONSENT/REFUSAL FOR DIAGNOSIS 2022-06-17 Doctor Unassigned, [facility] AND TREATMENT 19:29:59 [place] [facility] CONSENT/REFUSAL FOR DIAGNOSIS 2022-06-17 Doctor Unassigned, [facility] TREATMENT 19:29:59 [place] [facility] CONSENT/REFUSAL FOR DIAGNOSIS 2022-06-17 Doctor Unassigned, [facility] AND TREATMENT 19:29:59 [place] [facility] ENDOSCOPIC RETROGRADE 2022-06-09 Radha Otto [facility] CHOLANGIOPANCREATOGRAPHY, WITH 11:30:00 [facility] STENT REMOVAL XR ABDOMEN/KUB 1 VIEW PORTABLE 2022-06-08 Nuvia Burton [facility] 17:47:00 [facility] XR CHEST 1 VIEW PORTABLE / 2022-06-[address] [facility] BEDSIDE 14:42:00 [facility] PERMANENT LAB REPORT - SCAN 2022-06-07 Provider[facility] 00:[facility]00 [facility] CBC W/PLT COUNT & AUTO 2022-05-[address] [facility] DIFFERENTIAL 04:18:00 [facility] COMPREHENSIVE METABOLIC PANEL 2022-05-[address] [facility] 04:18:00 [facility] CBC W/PLT COUNT & AUTO 2022-05-[address] [facility] DIFFERENTIAL 04:18:00 [facility] CBC W/PLT COUNT & AUTO 2022-05-[address] [facility] DIFFERENTIAL 03:21:00 [facility] COMPREHENSIVE METABOLIC PANEL 2022-05-[address] [facility] 03:21:00 [facility] Center CBC W/PLT COUNT & AUTO 2022-05-[address] [facility] [facility] DIFFERENTIAL 03:21:00 [facility] BODY FLUID CULTURE + GRAM STAIN 2022-05-[address] [facility] 16:45:00 [facility] IR TUNNELED DRAINAGE CATHETER 2022-05-[address] [facility] PLACEMENT 16:22:00 [facility] Center CBC W/PLT COUNT & AUTO 2022-05-[address] [facility] [facility] DIFFERENTIAL 05:15:00 [facility] COMPREHENSIVE METABOLIC PANEL 2022-05-17 [address] [facility] 05[facility]15:00 [facility] Center PROTHROMBIN TIME/INR 2022-05-[address] [facility] 05:15:00 [facility] CBC W/PLT COUNT & AUTO 2022-05-[address] [facility] [facility] DIFFERENTIAL 05:15:00 [facility] SARS-COV2/RT-PCR ([facility] & REF 2022-05-[address] [facility] LABS) 04:37:00 [facility] TYPE AND SCREEN, AUTOMATED 2022-05-15 [facility]iana [facility] 01:25:00 [facility] BASIC METABOLIC PANEL (7) 2022-05-[address] [facility] 01:24:00 [facility] HEPATIC FUNCTION PANEL 2022-05-[address] [facility] 01:24:00 [facility] PROTHROMBIN TIME/INR 2022-05-[address] [facility] 01:24:00 [facility] PHOSPHORUS 2022-05-[address] [facility] 01:24:00 [facility] MAGNESIUM 2022-05-[address] [facility] 01:24:00 [facility] CBC W/PLT COUNT & AUTO 2022-05-15 Clarke, Georgiana [facility] DIFFERENTIAL 01:24:00 [facility] CBC W/PLT COUNT & AUTO 2022-05-[address] [facility] [facility] DIFFERENTIAL 01:24:00 [facility] BASIC METABOLIC PANEL (7) 2022-05-11 Mookie Sandra [facility]earns [facility] 03:30:00 [facility] CBC W/PLT COUNT & AUTO 2022-05-11 Mookie Sandra Kearns [facility] DIFFERENTIAL 03:30:00 [facility] Center MAGNESIUM 2022-05-11 Mookie Sandra Kearns [facility] 03:30:00 [facility] HEPATIC FUNCTION PANEL 2022-05-11 Mookie Sandra Kearns [facility] 03:30:00 [facility] LIPID PANEL 2022-05-11 Mookie Sandra Kearns [facility] 03:30:00 [facility] CBC W/PLT COUNT & AUTO 2022-05-11 Damico Sandra Kearns [facility] DIFFERENTIAL 03:30:[address] [facility] [address] ABDOMEN/PELVIS WITH IV 2022-05-[address] [facility] CONTRAST 19:08:00 [facility] REPORT OF PROCEDURE - ENDOSCOPY 2022-05-10 Fam, Radha [facility] URL 14:45:00 [facility] ENDOSCOPIC RETROGRADE 2022-05-10 Fam, Radha [facility] CHOLANGIOPANCREATOGRAPHY, WITH 08:00:00 M [facility] SPHINCTEROTOMY ENDOSCOPIC RETROGRADE 2022-05-10 Fam Radha [facility] CHOLANGIOPANCREATOGRAPHY, WITH 08:00:00 M [facility] BILE DUCT STENT INSERTION ENDOSCOPIC RETROGRADE 2022-05-10 Fam Radha [facility] CHOLANGIOPANCREATOGRAPHY, WITH 08:00:00 M [facility] BALLOON SWEEP OF BILE DUCTS PROCEDURE W/ C-ARM 2022-05-10 Fam, Radha [facility] 08:00:00 [facility] CBC (HEMOGRAM ONLY) 2022-05-[address] [facility] 03:20:00 [facility] COMPREHENSIVE METABOLIC PANEL 2022-05-[address] [facility] 03:20:00 [facility] SARS-COV2/RT-PCR (HS & REF 2022-05-09 Zindani, Holly [facility] 17:00:00 Medical Center Plan of Care Planned Activity Planned Date Details Comments Source Future Scheduled 2027-05-11 Lipid panel (procedure) [facility] Test 00:00:00 [code = 31153876] Medical Ce nter Future Scheduled 2027-05-11 Lipid panel (procedure) [facility] 00:00:00 [code = 27510567] Medical Ce nter Future Scheduled 2027-05-11 Lipid panel (procedure) [facility] 00:00:00 [code = 37628960] Medical Ce nter Future Scheduled 2022-05-06 INFLUENZA VACCINE (#1) [facility] 00:00:00 [code = INFLUENZA Medical Ce nter VACCINE (#1)] Future Scheduled 2022-05-06 INFLUENZA VACCINE (#1) [facility] 00:00:00 [code = INFLUENZA Medical Ce nter VACCINE (#1)] Future Scheduled 2022-05-06 INFLUENZA VACCINE (#1) [facility] 00:00:00 [code = INFLUENZA Medical Ce nter VACCINE (#1)] Future Scheduled 2021-09-[address] [facility] Test 00:00:00 (12+) [code = Medical Center DEPRESSION SCREENING (12+)] Future Scheduled 2021-09-[address] [facility] 00:00:00 (12+) [code = Medical Center DEPRESSION SCREENING (12+)] Future Scheduled 2021-09-[address] [facility] 00:00:00 (12+) [code = Medical Center DEPRESSION SCREENING (12+)] Future Scheduled 2009-12-24 SHINGLES VACCINES ([address] [facility] 00:00:00 2) [code = SHINGLES [facility] VACCINES (1 of 2)] Future Scheduled 2009-12-24 SHINGLES VACCINES ([address] [facility] 00:00:00 2) [code = SHINGLES [facility] Center VACCINES (1 of 2)] Future Scheduled 2009-12-24 SHINGLES VACCINES ([address] [facility] 00:00:00 [facility]) [facility] Future Scheduled 1978-12-24 DTAP/TDAP/TD VACCINES [facility] 00:00:00 (1 - Tdap) [code = Medical C enter DTAP/TDAP/TD VACCINES (1 - Tdap)] Future Scheduled 1978-12-24 DTAP/TDAP/TD VACCINES [facility] 00:00:00 (1 - Tdap) [code = Medical C enter DTAP/TDAP/TD VACCINES (1 - Tdap)] Future Scheduled 1978-12-24 DTAP/TDAP/TD [facility]ACCINES [facility] 00:00:00 (1 - Tdap) [code = Medical C enter DTAP/TDAP/TD VACCINES (1 - Tdap)] Future Scheduled [address] [facility] Test 00:00:00 Counseling and Medical Cente r Screening (12+) [code = Tobacco Cessation Counseling and Screening (12+)] Future Scheduled 1965-12-[address] [facility] Test 00:00:00 0-64 YRS (1 - PCV) Medical C enter [code = PNEUMOCOCCAL VACCINE 0-64 YRS (1 - PCV)] Future Scheduled 1965-12-[address] [facility] 00:00:00 0-64 YRS (1 - PCV) Medical C enter [code = PNEUMOCOCCAL VACCINE 0-64 YRS (1 - PCV)] Future Scheduled 1965-12-[address] [facility] 00:00:00 0-64 YRS (1 - PCV) Medical C enter [code = PNEUMOCOCCAL VACCINE 0-64 YRS (1 - PCV)] Future Scheduled 1960-06-25 COVID-19 VACCINE (#1) [facility] 00:00:00 [code = COVID-[address] VACCINE (#1)] Future Scheduled 1960-06-25 COVID-19 VACCINE (#1) [facility] 00:00:00 [code = COVID-[address] VACCINE (#1)] Future Scheduled 1960-06-25 COVID-19 VACCINE (#1) [facility] 00:00:00 [code = COVID-[address] VACCINE (#1)] Future Scheduled 1959 CT Colonography (combo) [facility] 00:00:00 [code = CT Colonography [facility] (combo)] Future Scheduled 1959 Screening for malignant [facility] 00:00:00 neoplasm of colon Medical Ce nter (procedure) [code = 521118904] Future Scheduled 1959 Screening for malignant [facility] Test 00:00:00 neoplasm of colon Medical Ce nter (procedure) [code = 722258677] Future Scheduled 1959 Screening for malignant [facility] Test 00:00:00 neoplasm of colon Medical Ce nter (procedure) [code = 196619060] Future Scheduled 1959 Screening for malignant [facility] 00:00:00 neoplasm of colon Medical Ce nter (procedure) [code = 135392023] Future Scheduled 1960 Sigmoidoscopy [code = [facility] 00:[facility]:00 Sigmoidoscopy] Medical Cente r Future Scheduled 1959 CT Colonography (combo) [facility] 00:00:00 [code = CT Colonography [facility] (combo)] Future Scheduled 1959 Screening for malignant [facility] 00:00:00 neoplasm of colon Medical Ce nter (procedure) [code = 722310463] Future Scheduled 1959 Screening for malignant [facility] Test 00:00:00 neoplasm of colon Medical Ce nter (procedure) [code = 280764076] Future Scheduled 1959 Screening for malignant [facility] Test 00:00:00 neoplasm of colon Medical Ce nter (procedure) [code = 449405432] Future Scheduled 1959 Screening for malignant [facility] Test 00:00:00 neoplasm of colon Medical Ce nter (procedure) [code = 332681391] Future Scheduled 1960 Sigmoidoscopy [code = [facility] 00:00:00 Sigmoidoscopy] Medical Cente r Future Scheduled 1959 CT Colonography (combo) [facility] 00:00:00 [code = CT Colonography [facility] (combo)] Future Scheduled 1959 Screening for malignant [facility] Test 00:00:00 neoplasm of colon Medical Ce nter (procedure) [code = 218043247] Future Scheduled 1959 Screening for malignant [facility] Test 00:00:00 neoplasm of colon Medical Ce nter (procedure) [code = 981822432] Future Scheduled 1959 Screening for malignant [facility] Test 00:00:00 neoplasm of colon Medical Ce nter (procedure) [code = 027901879] Future Scheduled 1959 Screening for malignant [facility] Test 00:00:00 neoplasm of colon Medical Ce nter (procedure) [code = 054690914] Future Scheduled 1960 Sigmoidoscopy [facility]code [facility] 00:00:00 Sigmoidoscopy] Medical Cente r Encounters Start End Encounter Admission Attending Care Care Encounter Source Date/Time Date/Time Type Type Clinicians Facility Department ID 2022-05-14 Outpatient LOIS OTTO [facility] Surgery [id number] [facility] 12:12:34 RADHA 2022-07-26 2022-07-26 Outpatient Pollo COULTER [facility] [id number] Univers 00:00:00 00:00:00 HUNTER roth [facility] 2022-07-12 2022-07-12 Outpatient Pollo LUGO [facility] [id number] Univers 11:15:00 13:52:11 [facility]22-07-12 2022-07-12 Office Faculty, Surgery Transplant [facility] 1.2.840.114 [id number] Univers 11:15:00 13:52:11 Visit Heidi Lugo [facility] 350.1.13.10 ity of [place] [id number] [facility] 189 Branch 2022-07-09 2022-07-09 Emergency X [facility] ERT [id number] Univers 16:28:00 22:52:00 CASIE roth [facility] 2022-07-09 2022-07-09 Emergency Beverlin, TRAUMA 1.2.840.114 [id number] Univers 16:28:00 22:52:00 [facility] 350.1.13.10 [place] [id number] [facility] 014 Branch 2022-06-29 2022-06-29 Transition MADHU Hutchison 1.2.840.114 [id number] Univers 00:00:00 00:00:00 of Care Tessa GONZALEZ 350.1.13.10 [place] [id number] [facility] 403 Branch 2022-06-17 2022-06-27 Hospital Rylee Yoni RIVEAR 1.2. 840.114 [id number] Univers 14:25:00 14:20:00 Encounter Chris Romero DEMI 350.1.13. [address] [facility] 4.2.7.2.686 [place] [id number] [facility] 099 Branch 2022-06-17 2022-06-27 Inpatient X [facility] [id number] Univers 14:25:00 14:20:00 HEATH ity of [facility] 2022-06-25 2022-06-25 Anesthesia KavitacarisaGomez 1.2.840.2 [id number] Univers 09:41:00 13:15:00 Event Yulissa Ramírez 96442.1.1 ity of 3.104.2.7 [place] .3.313061 Medica l .8 Branch 2022-06-24 2022-06-24 Orders Josephine [facility] [id number] [facility] [address] 00:00:00 00:00:00 Only Nuvia samy [facility] 2022-06-23 2022-06-23 Anesthesia Botello, 1.2.840.8 [id number] Univers 09:51:00 11:14:00 Event Larisa 53336.1.1 [place]y [place] .3.271930 Medica l .8 Branch 2022-06-23 2022-06-23 Surgery Parupudi, 1.2.840.2 [id number] Univers 07:00:00 08:24:00 Goran 34747.1.1 ity of 3.104.2.7 [place] .3.415410 Medica l .8 Branch 2022-06-17 2022-06-17 Travel 1.2.840.1 1.2.066.022 [id number] Univers 00:00:00 00:00:00 25196.1.1 350.1.13.10 ity of 3.104.2.7 4[place].7.3.698 [place] .3.065400 084.8 Medica l .8 Branch 2022-06-07 2022-06-09 Inpatient UR [facility] Medicine [id number] SLE 16:25:00 13:05:00 2022-06-07 2022-06-09 [facility] Casie Johnson [facility] [id number] 16:25:00 13:05:00 Encounter [facility] 2022-05-31 2022-05-31 [facility] [id number] 00:00:00 00:00:00 ion [facility] 2022-05-14 2022-05-19 Inpatient ER [facility] Inter Rad [id number] SLE 23:13:00 18:01:00 GENARO 2022-05-14 2022-05-19 [facility] [id number] [facility] 23:13:00 18:01:[address] [facility] 2022-05-14 2022-05-19 [facility] [id number] [facility] 23:13:00 18:01:[address] [facility] 2022-05-09 2022-05-11 Inpatient UR DAMICOISIDRO G[facility] [id number] SLEH 13:34:00 16:33:00 SANDRA 2022-05-09 2022-05-11 [facility] [id number] 13:34:00 16:33:00 [facility]counter [facility] 2022-05-09 2022-05-11 [facility] Yue Moulton [facility] [id number] 13:34:00 16:33:00 Encounter Sandra [facility] 2022-05-10 2022-05-10 Anesthesia David Michael [facility] [id number] 08:25:00 10:25:00 Event [facility] 2022-05-10 2022-05-10 Anesthesia David Michael [facility] [id number] 08:25:00 10:25:00 Event [facility] 2022-05-10 2022-05-10 Surgery Samyrandee [facility] [id number] 08:00:00 09:14:00 [facility] 2022-05-10 2022-05-10 Surgery Samyrandee [facility] [id number] 08:00:00 09:14:00 [facility] 2022-05-09 2022-05-09 Outpatient [facility] [id number] [facility] 13:34:00 23:59:00 Colleg keara of Medicin e 2022-01-07 2022-01-07 Outpatient LOIS Carter, [facility] [id number] [facility] 14:41:00 14:41:00 Ashvin Ward [facility] 2018-10-23 2018-10-23 [facility] [id number] Common 09:00:00 09:00:00 [facility] 2018-09-06 2018-09-06 [facility] [id number] Common 16:13:00 16:13:[address] [facility] [address] Family - [facility] Family Medicine [facility] 2018-08-23 2018-08-23 [facility] [id number] Common 14:30:00 14:30:00 t [facility] 2018-08-22 2018-08-22 [facility] [id number] Common 15:00:00 15:00:00 t [facility] Sp[facility] t [facility] Results Test Description Test Time Test Comments Results Result Sour e Comments RAD, ABDOMEN/KUB, 2022-07-15 1 VIEW AP 00:13:00 [facility] 1960 Sex: M FI NAL REPORT Patient Name: Carrol AnneDOB: 1960MRN: [id number]: Abdomen, single viewExam date/time: 06/08/2022 at 5:37 PMDowntime AN#:[id number] Examination was dictated during a downtime event. TECHNIQUE: Supine AP view of the abdomen on two radiographs. INDICATION: Dobbhoff placement. COMPARISON: None. FINDINGS:Feeding tube is looped within the gastric lumen with tip projected in the region of the gastric pylorus/proximal duodenum. Percutaneous catheter projected near midline within the right upper abdomen. Cholecystectomy clips are present. Common bile duct stent is present. Nonobstructive bowel gas pattern. IMPRESSION: 1. Feeding tube tip projected in the region of the gastric pylorus/proximal duodenum.2. Common bile duct stent is present. Percutaneous catheter just medial to the common bile duct stent.3. Nonobstructive bowel gas pattern. Signed: Cindy Alcala MDReport Verified Date/Time: 07/15/2022 00:13:30 SE 2022-07-09 23:08:54 Test Item Value Reference Range Interpretation Comme nts LIPASE (test code = 3039249699) 171 U/L 0-220 Lab Interpretation (test code = 04443-0) Normal [facility]. METABOLIC PANEL (67532)2022-07-09 23:08:53 Test Item Value Reference Range Interpretation Comments NA (test code = 136 mmol/L 135-145 3950145159) K (test code = 3.9 mmol/L 3.5-5.0 1140404422) CL (test code = 99 mmol/L 98-108 3831870194) CO2 TOTAL (test code = 26 mmol/L 23-31 3634116487) AGAP (test code = 2-16 0670900910) BUN (test code = 14 mg/dL 7-23 0824032321) GLUCOSE (test code = 112 mg/dL 70-110 H 5319295602) CREATININE (test code = 0.76 mg/dL 0.60-1.25 6934149964) TOTAL BILI (test code = 0.4 mg/dL 0.1-1.0 9702951447) CALCIUM (test code = 8.7 mg/dL 8.6-10.6 8375260826) T PROTEIN (test code = 6.3 g/dL 6.3-8.2 4215755529) ALBUMIN (test code = 3.6 g/dL 3.5-5.0 2312000337) ALK PHOS (test code = 233 U/L 34-122 H 3650834259) ALTv (test code = 37 U/L 5-50 1742-6) AST(SGOT) (test code = 32 U/L 13-40 0756615079) eGFR (test code = mL/min/1.73m2 0254388691) JUAN DAVID (test code = JUAN DAVID) Association of Glomerular Filtration Rate (GFR) and Staging of Kidney Disease* + --+ --+ ------+| GFR (mL/min/1.73 m2) ?| With Kidney Damage ?| ?Without Kidney Damage+ --------+ --------+ +| ?>90 ?| ?Stage one ?| ? Normal ?+ ---+ ---+ -------+| ?60-89 ?| ?Stage two ?| ? Decreased GFR ? + --+ --+ ------+| ?30-59 ?| ?Stage three ?| ? Stage three ? + --+ --+ ------+| ?15-29 ?| ?Stage four ? | ? Stage four ?+ ---+ ---+ -------+| ?<15 (or dialysis) ? ?| ?Stage five ? | ? Stage five ?+ ---+ ---+ -------+ *Each stage assumes the associated GFR level has been in effect for at least three months. ?Stages 1 to 5, with or without kidney disease, indicate chronic kidney disease. Notes: Determination of stages one and two (with eGFR >59mL/min/1.73 m2) requires estimation of kidney damage for at least three months as defined by structural or functional abnormalities of the kidney, manifested by either:Pathological abnormalities or Markers of kidney damage (including abnormalities in the composition of the blood or urine or abnormalities in imaging tests). Lab Interpretation Abnormal (test code = 87893-1) [facility] VIEW, NON [id number] 23:20[facility]00[facility] : 1960 Sex: MFINAL REPORT Patient Name: Carrol MccarthyerMRN: [id number]: 1960 CLINICAL HISTORY: Pain TECHNIQUE: 1 view of the chest COMPARISON: None IMPRESSION: There are no focal infiltrates or pleural effusions. The cardiomediastinal silhouette is within normal limits for size. The visualized bones are intact. Tubing projects in the upper abdomen. Signed: Chapito Zayas Verified Date/Time: 07/06/2022 23:20:47 Reading Location: [address] Reading Room TROPONIN [id number] 14:21:46 Test Item Value Reference Interpretation Comments Range TROPONIN I (test 0.003 ng/mL See_Comment [Automated code = 9753356020) message] The system which generated this result transmitted reference range : <=0.034. The reference range was not used to interpret this result as normal/abnormal . JUAN DAVID (test code = Reference (Normal) JUAN DAVID) Range (defined by the 99th percentile reference limit): <= 0.034 ng/mL Note: Cardiac troponin begins to rise 3-4 hours after the onset of ischemia. Repeat in 4-6 hours if the sample was drawn within 3-4 hours of the onset of the symptom and found normal. Diagnosis of myocardial injury is made with acute changes in cTn concentrations with at least one serial sample above the 99th percentile upper reference limit (URL), taken together with the patient's clinical presentation. Biotin has been reported to cause a negative bias, interpret results relative to patient's use of biotin. Lab Interpretation Normal (test code = 82456-6) [facility] [id number] 14:21:46 Test Item Value Reference Range Interpretation Comments NT-proBNP (test code 128 pg/mL See_Comment H [Autom ated = 7383961530) message] The system which generated this result transmitted reference range : <=125. The reference range was not used to interpret this result as normal/abnormal . JUAN DAVID (test code = JUAN DAVID) Biotin has been reported to cause a negative bias, interpret results relative to patient's use of biotin. Lab Interpretation Abnormal (test code = 70779-0) [facility] [id number] 14:21:46 Test Item Value Reference Interpretation Comments Range TROPONIN I (test 0.003 ng/mL See_Comment [Automated code = 4596076944) message] The system which generated this result transmitted reference range : <=0.034. The reference range was not used to interpret this result as normal/abnormal . JUAN DAVID (test code = Reference (Normal) JUAN DAVID) Range (defined by the 99th percentile reference limit): <= 0.034 ng/mL Note: Cardiac troponin begins to rise 3-4 hours after the onset of ischemia. Repeat in 4-6 hours if the sample was drawn within 3-4 hours of the onset of the symptom and found normal. Diagnosis of myocardial injury is made with acute changes in cTn concentrations with at least one serial sample above the 99th percentile upper reference limit (URL), taken together with the patient's clinical presentation. Biotin has been reported to cause a negative bias, interpret results relative to patient's use of biotin. Lab Interpretation Normal (test code = 39930-3) [facility] [id number] 14:21:46 Test Item Value Reference Range Interpretation Comments NT-proBNP (test code 128 pg/mL See_Comment H [Autom ated = 0440271035) message] The system which generated this result transmitted reference range : <=125. The reference range was not used to interpret this result as normal/abnormal . JUAN DAVID (test code = JUAN DAVID) Biotin has been reported to cause a negative bias, interpret results relative to patient's use of biotin. Lab Interpretation Abnormal (test code = 80963-1) [facility] [id number] 14:21:46 Test Item Value Reference Interpretation Comments Range TROPONIN I (test 0.003 ng/mL See_Comment [Automated code = 4100359681) message] The system which generated this result transmitted reference range : <=0.034. The reference range was not used to interpret this result as normal/abnormal . JUAN DAVID (test code = Reference (Normal) JUAN DAVID) Range (defined by the 99th percentile reference limit): <= 0.034 ng/mL Note: Cardiac troponin begins to rise 3-4 hours after the onset of ischemia. Repeat in 4-6 hours if the sample was drawn within 3-4 hours of the onset of the symptom and found normal. Diagnosis of myocardial injury is made with acute changes in cTn concentrations with at least one serial sample above the 99th percentile upper reference limit (URL), taken together with the patient's clinical presentation. Biotin has been reported to cause a negative bias, interpret results relative to patient's use of biotin. Lab Interpretation Normal (test code = 31951-0) [facility] [id number] 14:21:46 Test Item Value Reference Range Interpretation Comments NT-proBNP (test code 128 pg/mL See_Comment H [Autom ated = 7535938167) message] The system which generated this result transmitted reference range : <=125. The reference range was not used to interpret this result as normal/abnormal . JUAN DAVID (test code = JUAN DAVID) Biotin has been reported to cause a negative bias, interpret results relative to patient's use of biotin. Lab Interpretation Abnormal (test code = 15583-1) [facility]MAGN[facility]IUM2022-10-22 12:14:22 Test Item Value Reference Range Interpretation Comments MAGNESIUM (test code = 4101165914) 1.8 mg/dL 1.7-2.4 Lab Interpretation (test code = Normal 76962-6) [facility] (NA, K, CL, CO2, GLUCOSE, BUN, CREATININE, CA)2022-06-26 12:14:22 Test Item Value Reference Range Interpretation Comments NA (test code = 134 mmol/L 135-145 L 0040776735) K (test code = 3.9 mmol/L 3.5-5 5551085834) CL (test code = 101 mmol/L 98-108 9093573164) CO2 TOTAL (test code = 27 mmol/L 23-31 1169115220) AGAP (test code = 2-16 4724118814) BUN (test code = 7 mg/dL 7-23 0232179806) GLUCOSE (test code = 108 mg/dL 70-110 2486083121) CREATININE (test code = 0.74 mg/dL 0.6-1.25 3824927041) CALCIUM (test code = 8.4 mg/dL 8.6-10.6 L 1733221830) eGFR (test code = mL/min/1.73m2 5623310623) JUAN DAVID (test code = JUAN DAVID) Association of Glomerular Filtration Rate (GFR) and Staging of Kidney Disease* + --+ --+ ------+| GFR (mL/min/1.73 m2) ?| With Kidney Damage ?| ?Without Kidney Damage+ --------+ --------+ +| ?>90 ?| ?Stage one ?| ? Normal ?+ ---+ ---+ -------+| ?60-89 ?| ?Stage two ?| ? Decreased GFR ? + --+ --+ ------+| ?30-59 ?| ?Stage three ?| ? Stage three ? + --+ --+ ------+| ?15-29 ?| ?Stage four ? | ? Stage four ?+ ---+ ---+ -------+| ?<15 (or dialysis) ? ?| ?Stage five ? | ? Stage five ?+ ---+ ---+ -------+ *Each stage assumes the associated GFR level has been in effect for at least three months. ?Stages 1 to 5, with or without kidney disease, indicate chronic kidney disease. Notes: Determination of stages one and two (with eGFR >59mL/min/1.73 m2) requires estimation of kidney damage for at least three months as defined by structural or functional abnormalities of the kidney, manifested by either:Pathological abnormalities or Markers of kidney damage (including abnormalities in the composition of the blood or urine or abnormalities in imaging tests). Lab Interpretation Abnormal (test code = 90291-6) [facility] METABOLIC PANEL (NA, K, CL, CO2, GLUCOSE, BUN, CREATININE, CA)2022-06-26 12:14:22 Test Item Value Reference Range Interpretation Comments NA (test code = 134 mmol/L 135-145 L 9756273749) K (test code = 3.9 mmol/L 3.5-5 2742518297) CL (test code = 101 mmol/L 98-108 4832490726) CO2 TOTAL (test code = 27 mmol/L 23-31 1933548694) AGAP (test code = 2-16 6445729456) BUN (test code = 7 mg/dL 7-23 1694733633) GLUCOSE (test code = 108 mg/dL 70-110 0018904753) CREATININE (test code = 0.74 mg/dL 0.6-1.25 8703141012) CALCIUM (test code = 8.4 mg/dL 8.6-10.6 L 5882323542) eGFR (test code = mL/min/1.73m2 6711688900) JUAN DAVID (test code = JUAN DAVID) Association of Glomerular Filtration Rate (GFR) and Staging of Kidney Disease* + --+ --+ ------+| GFR (mL/min/1.73 m2) ?| With Kidney Damage ?| ?Without Kidney Damage+ --------+ --------+ +| ?>90 ?| ?Stage one ?| ? Normal ?+ ---+ ---+ -------+| ?60-89 ?| ?Stage two ?| ? Decreased GFR ? + --+ --+ ------+| ?30-59 ?| ?Stage three ?| ? Stage three ? + --+ --+ ------+| ?15-29 ?| ?Stage four ? | ? Stage four ?+ ---+ ---+ -------+| ?<15 (or dialysis) ? ?| ?Stage five ? | ? Stage five ?+ ---+ ---+ -------+ *Each stage assumes the associated GFR level has been in effect for at least three months. ?Stages 1 to 5, with or without kidney disease, indicate chronic kidney disease. Notes: Determination of stages one and two (with eGFR >59mL/min/1.73 m2) requires estimation of kidney damage for at least three months as defined by structural or functional abnormalities of the kidney, manifested by either:Pathological abnormalities or Markers of kidney damage (including abnormalities in the composition of the blood or urine or abnormalities in imaging tests). Lab Interpretation Abnormal (test code = 01755-5) [facility]2022-10-22 12:14:22 Test Item Value Reference Range Interpretation Comments MAGNESIUM (test code = 5398806805) 1.8 mg/dL 1.7-2.4 Lab Interpretation (test code = Normal 71128-6) [facility]landsD-[id number] 12:02:19 Test Item Value Reference Interpretation Comments Range D-DIMER (test code = See_Comment H [Autom ated 0982399856) message] The system which generated this result transmitted reference range : <0.50 ?g/mL (FEU). The reference range was not used to interpret this result as normal/abnormal . JUAN DAVID (test code = This test may be JUAN DAVID) used in conjunction with a clinical pretest probability (PTP) assessment model to exclude venous thromboembolism (VTE) in patients suspected of deep venous thrombosis (DVT) and pulmonary embolism (PE) A D-Dimer value less than 0.50 ?g/ml (FEU) has a negative predicative value of 96 to 100% (95% CI)and 97 to 100% (95% CI) as an aid in the diagnosis of deep vein thrombosis (DVT) and pulmonary embolism when there is low or moderate pretest probability of PE or DVT. D-Dimer values are expressed in initial fibrinogen equivalent units (FEU)" The assay results should be used with other information, including the clinical context, in forming a diagnosis. Lab Interpretation Abnormal (test code = 40628-0) [facility]-[id number] 12:02:19 Test Item Value Reference Interpretation Comments Range D-DIMER (test code = See_Comment H [Autom ated 7491050680) message] The system which generated this result transmitted reference range : <0.50 ?g/mL (FEU). The reference range was not used to interpret this result as normal/abnormal . JUAN DAVID (test code = This test may be JUAN DAVID) used in conjunction with a clinical pretest probability (PTP) assessment model to exclude venous thromboembolism (VTE) in patients suspected of deep venous thrombosis (DVT) and pulmonary embolism (PE) A D-Dimer value less than 0.50 ?g/ml (FEU) has a negative predicative value of 96 to 100% (95% CI)and 97 to 100% (95% CI) as an aid in the diagnosis of deep vein thrombosis (DVT) and pulmonary embolism when there is low or moderate pretest probability of PE or DVT. D-Dimer values are expressed in initial fibrinogen equivalent units (FEU)" The assay results should be used with other information, including the clinical context, in forming a diagnosis. Lab Interpretation Abnormal (test code = 73528-3) [facility]-[id number] 12:02:19 Test Item Value Reference Interpretation Comments Range D-DIMER (test code = See_Comment H [Autom ated 7218455607) message] The system which generated this result transmitted reference range : <0.50 ?g/mL (FEU). The reference range was not used to interpret this result as normal/abnormal . JUAN DAVID (test code = This test may be JUAN DAVID) used in conjunction with a clinical pretest probability (PTP) assessment model to exclude venous thromboembolism (VTE) in patients suspected of deep venous thrombosis (DVT) and pulmonary embolism (PE) A D-Dimer value less than 0.50 ?g/ml (FEU) has a negative predicative value of 96 to 100% (95% CI)and 97 to 100% (95% CI) as an aid in the diagnosis of deep vein thrombosis (DVT) and pulmonary embolism when there is low or moderate pretest probability of PE or DVT. D-Dimer values are expressed in initial fibrinogen equivalent units (FEU)" The assay results should be used with other information, including the clinical context, in forming a diagnosis. Lab Interpretation Abnormal (test code = 32874-6) [facility] WITH [id number] 11:51:18 Test Item Value Reference Range Interpretation Comments WBC (test code = See_Comment [Automated 6690-2) message] The sy stem which generated this result transmitted reference range : 4.20 - 10.70 10*3/?L. The reference range was not used to interpret this result as normal/abnormal . RBC (test code = See_Comment L [Automated 789-8) message] The sy stem which generated this result transmitted reference range : 4.26 - 5.52 10*6/?L. The reference range was not used to interpret this result as normal/abnormal . HGB (test code = 11.5 g/dL 12.2-16.4 L 718-7) HCT (test code = 34.1 % 38.4-49.3 L 4544-3) MCV (test code = 88.3 fL 81.7-95.6 787-2) MCH (test code = 29.8 pg 26.1-32.7 785-6) MCHC (test code = 33.7 g/dL 31.2-35 786-4) RDW-SD (test code = 42.1 fL 38.5-51.6 71363-9) RDW-CV (test code = 13.3 % 12.1-15.4 788-0) PLT (test code = See_Comment L [Automated 777-3) message] The sy stem which generated this result transmitted reference range : 150 - 328 10*3/ ?L. The reference r helen was not used to interpret this result as normal/abnormal . MPV (test code = 10.5 fL 9.8-13 29328-1) NRBC/100 WBC (test See_Comment [Automat ed code = 2112462740) message] The system which generated this result transmitted reference range : 0.0 - 10.0 /100 WBCs. The refer ence range was not u sed to interpret th is result as normal/abnormal . NRBC x10^3 (test code See_Comment [Auto mated = 7059837277) message] The s ystem which generated this result transmitted reference range : 10*3/?L. The reference range was not used to interpret this result as normal/abnormal . GRAN MAT (NEUT) % 74.2 % (test code = 770-8) IMM GRAN % (test code 0.90 % = 1751509290) LYMPH % (test code = 14.4 % 736-9) MONO % (test code = 9.7 % 5905-5) EOS % (test code = 0.4 % 713-8) BASO % (test code = 0.4 % 706-2) GRAN MAT x10^3(ANC) 4.07 10*3/uL 1.99-6.95 (test code = 2984135635) IMM GRAN x10^3 (test 0.05 10*3/uL 0-0.06 code = 5628192146) LYMPH x10^3 (test code 0.79 10*3/uL 1.09-3.23 L = 731-0) MONO x10^3 (test code 0.53 10*3/uL 0.36-1.02 = 742-7) EOS x10^3 (test code = 0.06-0.53 L 711-2) BASO x10^3 (test code 0.01-0.09 = 704-7) Lab Interpretation Abnormal (test code = 88503-3) [facility] WITH [id number] 11:51:18 Test Item Value Reference Range Interpretation Comments WBC (test code = See_Comment [Automated 6690-2) message] The sy stem which generated this result transmitted reference range : 4.20 - 10.70 10*3/?L. The reference range was not used to interpret this result as normal/abnormal . RBC (test code = See_Comment L [Automated 789-8) message] The sy stem which generated this result transmitted reference range : 4.26 - 5.52 10*6/?L. The reference range was not used to interpret this result as normal/abnormal . HGB (test code = 11.5 g/dL 12.2-16.4 L 718-7) HCT (test code = 34.1 % 38.4-49.3 L 4544-3) MCV (test code = 88.3 fL 81.7-95.6 787-2) MCH (test code = 29.8 pg 26.1-32.7 785-6) MCHC (test code = 33.7 g/dL 31.2-35 786-4) RDW-SD (test code = 42.1 fL 38.5-51.6 68055-4) RDW-CV (test code = 13.3 % 12.1-15.4 788-0) PLT (test code = See_Comment L [Automated 777-3) message] The sy stem which generated this result transmitted reference range : 150 - 328 10*3/ ?L. The reference r helen was not used to interpret this result as normal/abnormal . MPV (test code = 10.5 fL 9.8-13 06212-8) NRBC/100 WBC (test See_Comment [Automat ed code = 6332088862) message] The system which generated this result transmitted reference range : 0.0 - 10.0 /100 WBCs. The refer ence range was not u sed to interpret th is result as normal/abnormal . NRBC x10^3 (test code See_Comment [Auto mated = 6770458478) message] The s ystem which generated this result transmitted reference range : 10*3/?L. The reference range was not used to interpret this result as normal/abnormal . GRAN MAT (NEUT) % 74.2 % (test code = 770-8) IMM GRAN % (test code 0.90 % = 3674162853) LYMPH % (test code = 14.4 % 736-9) MONO % (test code = 9.7 % 5905-5) EOS % (test code = 0.4 % 713-8) BASO % (test code = 0.4 % 706-2) GRAN MAT x10^3(ANC) 4.07 10*3/uL 1.99-6.95 (test code = 3160450799) IMM GRAN x10^3 (test 0.05 10*3/uL 0-0.06 code = 8291941325) LYMPH x10^3 (test code 0.79 10*3/uL 1.09-3.23 L = 731-0) MONO x10^3 (test code 0.53 10*3/uL 0.36-1.02 = 742-7) EOS x10^3 (test code = 0.06-0.53 L 711-2) BASO x10^3 (test code 0.01-0.09 = 704-7) Lab Interpretation Abnormal (test code = 49955-7) [facility] (59948) (ALB,T.PRO,BILI T,BU/BC,ALT,AST,ALK PHOS)2022-06-25 23:34:17 Test Item Value Reference Range Interpretation Comments TOTAL BILI (test code = 1539331690) 0.5 mg/dL 0.1-1.1 BILI UNCON (test code = 3866788825) 0.2 mg/dL 0.1-1.1 BILI CONJ (test code = 5451295852) 0.0 mg/dL 0-0.3 T PROTEIN (test code = 6418151183) 5.9 g/dL 6.3-8.2 L ALBUMIN (test code = 9115285765) 3.3 g/dL 3.5-5 L ALK PHOS (test code = 5700749216) 256 U/L 34-122 H ALTv (test code = 1742-6) 168 U/L 5-50 H AST(SGOT) (test code = 1277660649) 151 U/L 13-40 H Lab Interpretation (test code = Abnormal 13834-0) [facility] (50812) (ALB,T.PRO,BILI T,BU/BC,ALT,AST,ALK PHOS)2022-06-25 23:34:17 Test Item Value Reference Range Interpretation Comments TOTAL BILI (test code = 5193046535) 0.5 mg/dL 0.1-1.1 BILI UNCON (test code = 3206022787) 0.2 mg/dL 0.1-1.1 BILI CONJ (test code = 1758955651) 0.0 mg/dL 0-0.3 T PROTEIN (test code = 5156855504) 5.9 g/dL 6.3-8.2 L ALBUMIN (test code = 8049370907) 3.3 g/dL 3.5-5 L ALK PHOS (test code = 3556566234) 256 U/L 34-122 H ALTv (test code = 1742-6) 168 U/L 5-50 H AST(SGOT) (test code = 8328225138) 151 U/L 13-40 H Lab Interpretation (test code = Abnormal 34782-8) [facility] (23790) (ALB,T.PRO,BILI T,BU/BC,ALT,AST,ALK PHOS)2022-06-25 23:34:17 Test Item Value Reference Range Interpretation Comments TOTAL BILI (test code = 7800513414) 0.5 mg/dL 0.1-1.1 BILI UNCON (test code = 4766109099) 0.2 mg/dL 0.1-1.1 BILI CONJ (test code = 8642031680) 0.0 mg/dL 0-0.3 T PROTEIN (test code = 6580258254) 5.9 g/dL 6.3-8.2 L ALBUMIN (test code = 2237574786) 3.3 g/dL 3.5-5 L ALK PHOS (test code = 8930359025) 256 U/L 34-122 H ALTv (test code = 1742-6) 168 U/L 5-50 H AST(SGOT) (test code = 8987345895) 151 U/L 13-40 H Lab Interpretation (test code = Abnormal 58642-2) [facility] (AUTOMATED)2022-06-25 20:16:06 Test Item Value Reference Range Interpretation Comments POCT GLU (test code = 1591971579) 110 mg/dL 70-110 Lab Interpretation (test code = Normal 29791-7) [facility] GLUCOSE (AUTOMATED)2022-06-25 20:16:06 Test Item Value Reference Range Interpretation Comments POCT GLU (test code = 0885249698) 110 mg/dL 70-110 Lab Interpretation (test code = Normal 80799-7) [facility] GLUCOSE (AUTOMATED)2022-06-25 20:16:06 Test Item Value Reference Range Interpretation Comments POCT GLU (test code = 2295582759) 110 mg/dL 70-110 Lab Interpretation (test code = Normal 55286-6) [facility]Proth[facility] Time / [id number] 07:29:57 Test Item Value Reference Range Interpretation Comments PROTIME PATIENT (test See_Comment [Auto mated message] code = 5964-2) The system [employer] generated this result transmitted ref erence range: 10.1 - 1 2.6 Seconds. The re ference range was not u sed to interpret this result as normal/abnor mal. INR (test code = 6301-6) Nor mal INR <1.1; Warfarin Therap eutic range 2.0 to 3. 0 or 2.5 to 3.5, dep ending upon the indica tions. Lab Interpretation (test Normal code = 13208-1) [facility]th[facility] Time / [id number] 07:29:57 Test Item Value Reference Range Interpretation Comments PROTIME PATIENT (test See_Comment [Auto mated message] code = 5964-2) The system [employer] generated this result transmitted ref erence range: 10.1 - 1 2.6 Seconds. The re ference range was not u sed to interpret this result as normal/abnor mal. INR (test code = 6301-6) Nor mal INR <1.1; Warfarin Therap eutic range 2.0 to 3. 0 or 2.5 to 3.5, dep ending upon the indica tions. Lab Interpretation (test Normal code = 36309-0) [facility]. METABOLIC PANEL (89126)2022-06-20 07:17:55 Test Item Value Reference Range Interpretation Comments NA (test code = 135 mmol/L 135-145 5792345576) K (test code = 4.4 mmol/L 3.5-5 2832662224) CL (test code = 99 mmol/L 98-108 6004606587) CO2 TOTAL (test code = 25 mmol/L 23-31 0474176629) AGAP (test code = 2-16 4451404474) BUN (test code = 13 mg/dL 7-23 5084685293) GLUCOSE (test code = 76 mg/dL 70-110 2107164062) CREATININE (test code = 0.79 mg/dL 0.6-1.25 0334948095) TOTAL BILI (test code = 0.3 mg/dL 0.1-1.9 6503175416) CALCIUM (test code = 8.5 mg/dL 8.6-10.6 L 2554042522) T PROTEIN (test code = 6.0 g/dL 6.3-8.2 L 2134126377) ALBUMIN (test code = 3.4 g/dL 3.5-5 L 6385430203) ALK PHOS (test code = 253 U/L 34-122 H 5115266168) ALTv (test code = 62 U/L 5-50 H 1742-6) AST(SGOT) (test code = 33 U/L 13-40 7209699058) eGFR (test code = mL/min/1.73m2 9116296389) JUAN DAVID (test code = JUAN DAVID) Association of Glomerular Filtration Rate (GFR) and Staging of Kidney Disease* + --+ --+ ------+| GFR (mL/min/1.73 m2) ?| With Kidney Damage ?| ?Without Kidney Damage+ --------+ --------+ +| ?>90 ?| ?Stage one ?| ? Normal ?+ ---+ ---+ -------+| ?60-89 ?| ?Stage two ?| ? Decreased GFR ? + --+ --+ ------+| ?30-59 ?| ?Stage three ?| ? Stage three ? + --+ --+ ------+| ?15-29 ?| ?Stage four ? | ? Stage four ?+ ---+ ---+ -------+| ?<15 (or dialysis) ? ?| ?Stage five ? | ? Stage five ?+ ---+ ---+ -------+ *Each stage assumes the associated GFR level has been in effect for at least three months. ?Stages 1 to 5, with or without kidney disease, indicate chronic kidney disease. Notes: Determination of stages one and two (with eGFR >59mL/min/1.73 m2) requires estimation of kidney damage for at least three months as defined by structural or functional abnormalities of the kidney, manifested by either:Pathological abnormalities or Markers of kidney damage (including abnormalities in the composition of the blood or urine or abnormalities in imaging tests). Lab Interpretation Abnormal (test code = 53616-4) [facility] METABOLIC PANEL (93446)2022-06-20 07:17:55 Test Item Value Reference Range Interpretation Comments NA (test code = 135 mmol/L 135-145 1048051612) K (test code = 4.4 mmol/L 3.5-5 0421797803) CL (test code = 99 mmol/L 98-108 6124828206) CO2 TOTAL (test code = 25 mmol/L 23-31 1406307353) AGAP (test code = 2-16 4656481077) BUN (test code = 13 mg/dL 7-23 0969784466) GLUCOSE (test code = 76 mg/dL 70-110 9415039796) CREATININE (test code = 0.79 mg/dL 0.6-1.25 2713908386) TOTAL BILI (test code = 0.3 mg/dL 0.1-1.5 5840583958) CALCIUM (test code = 8.5 mg/dL 8.6-10.6 L 0231344445) T PROTEIN (test code = 6.0 g/dL 6.3-8.2 L 2357976136) ALBUMIN (test code = 3.4 g/dL 3.5-5 L 1378350336) ALK PHOS (test code = 253 U/L 34-122 H 3451148348) ALTv (test code = 62 U/L 5-50 H 1742-6) AST(SGOT) (test code = 33 U/L 13-40 8827237618) eGFR (test code = mL/min/1.73m2 3599372095) JUAN DAVID (test code = JUAN DAVID) Association of Glomerular Filtration Rate (GFR) and Staging of Kidney Disease* + --+ --+ ------+| GFR (mL/min/1.73 m2) ?| With Kidney Damage ?| ?Without Kidney Damage+ --------+ --------+ +| ?>90 ?| ?Stage one ?| ? Normal ?+ ---+ ---+ -------+| ?60-89 ?| ?Stage two ?| ? Decreased GFR ? + --+ --+ ------+| ?30-59 ?| ?Stage three ?| ? Stage three ? + --+ --+ ------+| ?15-29 ?| ?Stage four ? | ? Stage four ?+ ---+ ---+ -------+| ?<15 (or dialysis) ? ?| ?Stage five ? | ? Stage five ?+ ---+ ---+ -------+ *Each stage assumes the associated GFR level has been in effect for at least three months. ?Stages 1 to 5, with or without kidney disease, indicate chronic kidney disease. Notes: Determination of stages one and two (with eGFR >59mL/min/1.73 m2) requires estimation of kidney damage for at least three months as defined by structural or functional abnormalities of the kidney, manifested by either:Pathological abnormalities or Markers of kidney damage (including abnormalities in the composition of the blood or urine or abnormalities in imaging tests). Lab Interpretation Abnormal (test code = 62068-8) [facility] WITH [id number] 06:57:57 Test Item Value Reference Range Interpretation Comments WBC (test code = See_Comment [Automated 3490-2) message] The sy stem which generated this result transmitted reference range : 4.20 - 10.70 10*3/?L. The reference range was not used to interpret this result as normal/abnormal . RBC (test code = See_Comment L [Automated 019-8) message] The sy stem which generated this result transmitted reference range : 4.26 - 5.52 10*6/?L. The reference range was not used to interpret this result as normal/abnormal . HGB (test code = 12.6 g/dL 12.2-16.4 718-7) HCT (test code = 36.3 % 38.4-49.3 L 4544-3) MCV (test code = 86.4 fL 81.7-95.6 787-2) MCH (test code = 30.0 pg 26.1-32.7 785-6) MCHC (test code = 34.7 g/dL 31.2-35 786-4) RDW-SD (test code = 38.6 fL 38.5-51.6 80285-5) RDW-CV (test code = 12.3 % 12.1-15.4 788-0) PLT (test code = See_Comment [Automated 777-3) message] The sy stem which generated this result transmitted reference range : 150 - 328 10*3/ ?L. The reference r helen was not used to interpret this result as normal/abnormal . MPV (test code = 10.1 fL 9.8-13 72638-3) NRBC/100 WBC (test See_Comment [Automat ed code = 0235652267) message] The system which generated this result transmitted reference range : 0.0 - 10.0 /100 WBCs. The refer ence range was not u sed to interpret th is result as normal/abnormal . NRBC x10^3 (test code See_Comment [Auto mated = 3267646701) message] The s ystem which generated this result transmitted reference range : 10*3/?L. The reference range was not used to interpret this result as normal/abnormal . GRAN MAT (NEUT) % 53.0 % (test code = 770-8) IMM GRAN % (test code 1.10 % = 3753913452) LYMPH % (test code = 31.8 % 736-9) MONO % (test code = 13.1 % 5905-5) EOS % (test code = 0.6 % 713-8) BASO % (test code = 0.4 % 706-2) GRAN MAT x10^3(ANC) 2.46 10*3/uL 1.99-6.95 (test code = 0848619127) IMM GRAN x10^3 (test 0.05 10*3/uL 0-0.06 code = 7178317634) LYMPH x10^3 (test code 1.48 10*3/uL 1.09-3.23 = 731-0) MONO x10^3 (test code 0.61 10*3/uL 0.36-1.02 = 742-7) EOS x10^3 (test code = 0.03 10*3/uL 0.06-0.53 L 711-2) BASO x10^3 (test code 0.01-0.09 = 704-7) Lab Interpretation Abnormal (test code = 69128-7) [facility] WITH [id number] 06:57:57 Test Item Value Reference Range Interpretation Comments WBC (test code = See_Comment [Automated 6690-2) message] The sy stem which generated this result transmitted reference range : 4.20 - 10.70 10*3/?L. The reference range was not used to interpret this result as normal/abnormal . RBC (test code = See_Comment L [Automated 789-8) message] The sy stem which generated this result transmitted reference range : 4.26 - 5.52 10*6/?L. The reference range was not used to interpret this result as normal/abnormal . HGB (test code = 12.6 g/dL 12.2-16.4 718-7) HCT (test code = 36.3 % 38.4-49.3 L 4544-3) MCV (test code = 86.4 fL 81.7-95.6 787-2) MCH (test code = 30.0 pg 26.1-32.7 785-6) MCHC (test code = 34.7 g/dL 31.2-35 786-4) RDW-SD (test code = 38.6 fL 38.5-51.6 31836-4) RDW-CV (test code = 12.3 % 12.1-15.4 788-0) PLT (test code = See_Comment [Automated 777-3) message] The sy stem which generated this result transmitted reference range : 150 - 328 10*3/ ?L. The reference r helen was not used to interpret this result as normal/abnormal . MPV (test code = 10.1 fL 9.8-13 09498-1) NRBC/100 WBC (test See_Comment [Automat ed code = 8281310000) message] The system which generated this result transmitted reference range : 0.0 - 10.0 /100 WBCs. The refer ence range was not u sed to interpret th is result as normal/abnormal . NRBC x10^3 (test code See_Comment [Auto mated = 1589554443) message] The s ystem which generated this result transmitted reference range : 10*3/?L. The reference range was not used to interpret this result as normal/abnormal . GRAN MAT (NEUT) % 53.0 % (test code = 770-8) IMM GRAN % (test code 1.10 % = 3846903840) LYMPH % (test code = 31.8 % 736-9) MONO % (test code = 13.1 % 5905-5) EOS % (test code = 0.6 % 713-8) BASO % (test code = 0.4 % 706-2) GRAN MAT x10^3(ANC) 2.46 10*3/uL 1.99-6.95 (test code = 5284906215) IMM GRAN x10^3 (test 0.05 10*3/uL 0-0.06 code = 4558955769) LYMPH x10^3 (test code 1.48 10*3/uL 1.09-3.23 = 731-0) MONO x10^3 (test code 0.61 10*3/uL 0.36-1.02 = 742-7) EOS x10^3 (test code = 0.03 10*3/uL 0.06-0.53 L 711-2) BASO x10^3 (test code 0.01-0.09 = 704-7) Lab Interpretation Abnormal (test code = 15485-0) [facility] [id number] 21:25:38 Test Item Value Reference Range Interpretation Comments LACTIC ACID (test code = 0.77 mmol/L 0.5-2.2 1686628341) Lab Interpretation (test code = Normal 74882-1) [facility] [id number] 21:25:38 Test Item Value Reference Range Interpretation Comments LACTIC ACID (test code = 0.77 mmol/L 0.5-2.2 2458792481) Lab Interpretation (test code = Normal 28346-8) [facility] [id number] 21:25:38 Test Item Value Reference Range Interpretation Comments LACTIC ACID (test code = 0.77 mmol/L 0.5-2.2 9990404037) Lab Interpretation (test code = Normal 67546-9) [facility] [id number] 21:25:38 Test Item Value Reference Range Interpretation Comments LACTIC ACID (test code = 0.77 mmol/L 0.5-2.2 8245257115) Lab Interpretation (test code = Normal 22744-9) [facility] [id number] 20:31:19 Test Item Value Reference Range Interpretation Comments Result (test code = 6463-4) No growth Gram Stain Result (test No organisms seen code = 1123) [facility] [id number] 20:31:19 Test Item Value Reference Range Interpretation Comments Result (test code = 6463-4) No growth Gram Stain Result (test No organisms seen code = 1123) [facility] + GRAM [id number] 20:31:19 Test Item Value Reference Range Interpretation Comments CULTURE (BEAKER) (test code No growth = 1095) GRAM STAIN RESULT (BEAKER) <1+ WBCs (test code = 1123) GRAM STAIN RESULT (BEAKER) No organisms seen (test code = 08411) COMPREHENSIVE METABOLIC [id number] 05:27:55 Test Item Value Reference Range Interpretation [...] rted eGFR is based on the CKD-EPI 2021 equation t hat does not use a race coefficientEsti mated GFR is not as accur ate as Creatinine Shazia samuels in predicting glom erular filtration rate . Estimated GFR is not appl icable for dialysis patien ts Business Support Assistant ID - MERRY MCBC W/PLT COUNT & AUTO [id number] 05:18:09 Test Item Value Reference Range Interpretation [...] (BEAKER) (test code = 2801) ANG, ABSCESS [id number] 08:52:00Reason for exam:->bilioma drainage [facility] 1960 Sex: MFINAL REPORT Right upper [...] the patient's medical record by the nurse. Machine Coremaker: Robel Elizalde MD. Occ Med Physician: Theresa Doe MD (Fellow) Approach: Upper abdomen, percutaneous Estimated blood loss: < 5 cc. Specimen: 20 cc of dark, bilious appearing fluid. Fluoroscopy Time: 1.0 min.R eference Air Kerma (Ka, r): 23.6 mGy. Technique: Informed written consent was obtained. Discussion of risks, benefits, and alternatives were made with the patient. The patient expressed understanding and agreed to proceed. A universal timeout was performed prior to starting the procedure. All elementsmaximal sterile barrier technique was utilized for this [...] needle was used to access the fluid collectionwithin the cholecystectomy bed using a transhepatic approach. A 0.018 inch wire was advanced to the needle and coiled within the collection. The needle was exchanged for an AccuStick sheath. A 0.035 inch wire was then advanced through the AccuStick sheath and coiled within the collection. The tract was dilated and a 8.5 Taiwanese drainage catheter advanced over with pigtail formed within the right upperquadrant collection. The catheter spaces skin with silk suture. Dark, bilious appearing fluid initially aspirated. The catheter was then left to bulb suction. A sterile dressing was applied. The patient prone the procedure and left the department in stable condition. Impression: Successful ultrasound/f luoroscopic guided right upper quadrant fluid collection drainage with placement of a 8.5 Taiwanese pigtail drainage catheter as detailed above. Signed: [...] not appl icable for dialysis patien ts Business Support Assistant ID - PIAYA LCBC W/PLT COUNT & AUTO [id number] 04:05:39 Test Item Value Reference Range Interpretation [...] PERCENT (BEAKER) (test code = 2801) PROTHROMBIN TIME/[id number] 06:26:26 Test Item Value Reference Range Interpretation Comments PROTIME (BEAKER) 15.1 seconds 11.9-14.2 H (test code = 759) INR (BEAKER) (test 1.26 See_Comment [Automat ed message] code = 370) The system [employer] generated this result transmitted ref erence range: [...] not appl icable for dialysis patien ts Business Support Assistant ID - YOU WCBC W/PLT COUNT & AUTO [id number] 05:34:36 Test Item Value Reference Range Interpretation [...] SARS-Co V-2 (test code = target nucleic 84158-2) acids are not detected in thi s [...] revoked sooner. Fact Sheet for Healthcare Providers: https://www.Perfect Escapes/Documents/Xp ert%20Xpress%20SAR S%20CoV-2/Fact%20S heets/302-2682%20S ARS-COV-2%20HEALTH CARE%20PROVIDERS%2 0FACT%20SHEET.pdf Fact Sheet for Healthcare Patients: https://www.[employer]/Documents/Xp ert%20Xpress%20SAR S%20CoV-2/Fact%20S heets/302-3801%20S ARS-COV-2%20PATIEN T%20FACT%20SHEET.p df Lab Interpretation Normal (test code = 61731-1) [facility] 12:45:15 Test Item Value Reference Interpretation Comments Range SARS-COV2/RT-PCR Negative Negative The SARS-Co V-2 (test code = target nucleic 31557-5) acids are not detected in thi s [...] revoked sooner. Fact Sheet for Healthcare Providers: https://www.[employer]/Documents/Xp ert%20Xpress%20SAR S%20CoV-2/Fact%20S heets/302-3802%20S ARS-COV-2%20HEALTH CARE%20PROVIDERS%2 0FACT%20SHEET.pdf Fact Sheet for Healthcare Patients: https://www.[employer]/Documents/Xp ert%20Xpress%20SAR S%20CoV-2/Fact%20S heets/302-3801%20S ARS-COV-2%20PATIEN T%20FACT%20SHEET.p df Lab Interpretation Normal (test code = 69619-7) [facility]2022-05-15 12:45:15 Test Item Value Reference Range Interpretation Comments SARS-COV2/RT-PCR Negative Negative The SARS-Co V-2 target (test code = nucleic acids a re not 5833521) detected in thi s specimen. Negative result [...] revoked sooner. Fact Sheet for Healthcare Providers: https://www.Billingstreet.co m/Documents/Xpert%20Xpress%20SARS%20CoV-2/Fact%20Sheets/960-5642%69JVWL-HOS-3%20 HEALTHCARE%20PROVIDERS%20FACT%20SHEET.pdf Fact Sheet for Healthcare Patients: https://www.[employer]Streams/Documents/Xpert%20Xp ress%20SARS%20CoV-2/Fact%20Sheets/302-5711%17ADEK-XLO-8%20PATIENT%20FACT%20SHEET .[id number] 02:48:18 Test Item Value Reference Range Interpretation Comments MAGNESIUM (BEAKER) (test code = 1.9 mg/dL 1.6-2.6 627) Business Support Assistant ID - WALLY [id number] 02:48:18 Test Item Value Reference Range Interpretation Comments PHOSPHORUS (BEAKER) (test code = 2.3 mg/dL 2.3-4.7 604) Business Support Assistant ID - WALLY MHEPATIC FUNCTION [id number] 02:48:18 Test Item Value Reference Range Interpretation [...] (test code = 28 U/L 6-55 347) Business Support Assistant ID - WALLY MBASIC METABOLIC [id number] 02:48:17 Test Item Value Reference Range Interpretation [...] high >=90 G2 Mildly decreased 60-89 G3a Mild ly to moderately 45-5 9 G3b Moderately to [...] not appl icable for dialysis patien ts Business Support Assistant ID - WALLY MPROTHROMBIN TIME/[id number] 01:51:51 Test Item Value Reference Range Interpretation Comments PROTIME (BEAKER) 13.9 seconds 11.9-14.2 (test code = 759) INR (BEAKER) (test 1.13 See_Comment [Automat ed message] code = 370) The system [employer] generated this result transmitted ref erence range: <=5.90. The reference range was not used to int erpret this result as normal/abnormal . RECOMMENDED COUMADIN/WARFARIN INR THERAPY RANGESSTANDARD DOSE: 2.0 - 3.0 Includes: PROPHYLAXIS for venous thrombosis, systemic embolization; TREATMENT for venous thrombosis and/or pulmonary embolus.HIGH RISK: Target INR is 2.5-3.5 for patients with mechanical heart valves.CBC W/PLT COUNT & AUTO [id number] 01:43:47 Test Item Value Reference Range Interpretation [...] (BEAKER) (test code = 2801) BASIC METABOLIC [id number] 04:05:58 Test Item Value Reference Range Interpretation [...] not appl icable for dialysis patien ts Business Support Assistant ID - YOU [id number] 04:05:58 Test Item Value Reference Range Interpretation Comments MAGNESIUM (BEAKER) (test code = 2.2 mg/dL 1.6-2.6 627) Business Support Assistant ID Anatoliy ORTA WLIPID [id number] 04:05:58 Test Item Value Reference Range Interpretation [...] Borderline 130-159 High 160-189 Very High >=190 Business Support Assistant ID Anatoliy ORTA WHEPATIC FUNCTION [id number] 04:05:58 Test Item Value Reference Range Interpretation [...] (test code = 54 U/L 6-55 347) Business Support Assistant KARO ORTA WCBC W/PLT COUNT & AUTO [id number] 03:45:31 Test Item Value Reference Range Interpretation [...] PERCENT (BEAKER) (test code = 2801) CT, [id number] 20:34:00Unlisted Reason for Exam - Click Yes and Enter Reason Below->NoIs this for enterography?->NoWill this procedure require oral contrast?->No [facility] 1960 Sex: MFINAL REPORT CT ABDOMEN [...] decreased from the previous exam. Signed: Lisa Peralta MDReport Verified Date/Time: 05/10/2022 20:34:06 COMPREHENSIVE METABOLIC [...] not appl icable for dialysis patien ts Business Support Assistant ID - MERRY MCBC (HEMOGRAM ONLY)2022-05-10 03:55:35 [...] SARS-Co V-2 (test code = target nucleic 86923-0) acids are not detected in thi s [...] revoked sooner. Fact Sheet for Healthcare Providers: https://www.[employer]/Documents/Xp ert%20Xpress%20SAR S%20CoV-2/Fact%20S heets/302-3802%20S ARS-COV-2%20HEALTH CARE%20PROVIDERS%2 0FACT%20SHEET.pdf Fact Sheet for Healthcare Patients: https://www.[employer]/Documents/Xp ert%20Xpress%20SAR S%20CoV-2/Fact%20S heets/302-3801%20S ARS-COV-2%20PATIEN T%20FACT%20SHEET.p df Lab Interpretation Normal (test code = 29920-0) [facility]2022-05-10 03:50:54 Test Item Value Reference Range Interpretation Comments SARS-COV2/RT-PCR Negative Negative The SARS-Co V-2 target (test code = nucleic acids a re not 6801564) detected in thi s specimen. Negative result [...] revoked sooner. Fact Sheet for Healthcare Providers: https://www.Billingstreet.co m/Documents/Xpert%20Xpress%20SARS%20CoV-2/Fact%20Sheets/3023802%51CBJU-PHJ-9%20 HEALTHCARE%20PROVIDERS%20FACT%20SHEET.pdf Fact Sheet for Healthcare Patients: https://www.NetStreams/Documents/Xpert%20Xp ress%20SARS%20CoV-2/Fact%20Sheets/3023801%98NAPO-RTF-5%20PATIENT%20FACT%20SHEET .pdf- XR CHEST 2 [id number] 00:00:00 [facility] : 1960 Sex: M FAX: Jordan Ledezma MD [phone] [place]: St: [facility] FAX: Ashvin Cintron MD [phone] Name: CARROL ANNE [facility] : 1960 Age/S: 61/M [address] [place] [address] Unit #: [id number] Loc: [place], [place] [address]Ikua: Ashvin Carter MD Acct: [id number] Dis Date: Status: REG CLI PHONE #: [phone] Exam Date: 01/07/2022 1506 FAX #: [phone] Reason: CLL EXAMS: CPT CODE: [id number] XR CHEST 2 V 93324 PROCEDURE INFORMATION: Exam: XR Chest Exam date [...] findings. at 1750 Reported and signed by: Oma Malcolm CC: Jordan Juarez MD; Ashvin Carter MD Technologist: Fang Herrera RT(R) Trnscrd Date/Time/By: 01/07/2022 (1749) : By: DevanTDO Orig Print D/T: S: 01/07/2022 (1749) PAGE 1 Signed Report
[2022-07-26] MEDS ORDERED: NA CHLORIDE 0.9% 1,000 ML ONE (07:18)
[2022-07-26] MEDS ORDERED: MORPHINE 4 MG/ML SYR ONE ×2 (07:18→10:02)
[2022-07-26] MEDS ORDERED: ONDANSETRON 4 MG/2 ML VIAL ONE (07:18)
[2022-07-26 07:48] LABS: Absolute Lymphocytes (CBC) 0.4 K/uL (0.7-4.9); Hematocrit 42.9 % (39.6-49.0); Lymphocytes % 3.4 % (15.3-44.8); MCV 83.8 fL (80-100); MPV 8.4 fL (7.6-11.3); RBC Red Blood Cell Count 5.11 M/uL (4.33-5.43)
[2022-07-26 08:02] LABS: Albumin 3.4 g/dL (3.4-5.0); Bilirubin Total 0.8 mg/dL (0.2-1.0); Potassium 3.7 mmol/L (3.5-5.1); Protein, Total 7.7 g/dL (6.4-8.2)
--- NOTE | 2022-07-26 09:05 | RAD REPORT ---
EXAM DESCRIPTION: CT - Abdomen Pelvis W Contrast - 07/26/2022 8:36 am CLINICAL HISTORY: Epigastric pain COMPARISON: Abdomen Pelvis W Contrast dated 05/29/2022; Abdomen Pelvis W Contrast dated 05/08/2022; Stone Protocol dated 05/14/2022 TECHNIQUE: Biphasic, helical CT imaging of the abdomen and pelvis was performed following 100 ml non -ionic IV contrast. Oral contrast: No. All CT scans are performed using dose optimization technique as appropriate and may include automated exposure control or mA/KV adjustment according to patient size. FINDINGS: No suspicious findings in the lung bases. Since the May 29 examination the small biliary stent has been replaced by a long length large d iameter biliary stent. Pigtail drain midline abdomen along the medial capsule margin of the liver rem ains in place. There is a new pigtail drain in the central right lobe of the liver. Cholecystectomy c lips remain in place. There is a short segment linear density in the inferior right lobe that is caleb eved to be related to prior intrahepatic procedure. There is no abnormal fluid around the right lobe intrahepatic pigtail drain. A 2.6 x 1.7 cm fluid collection remains along the medial capsular margin of the liver along the super ior margin of the duodenal bulb. This is the site of prior fluid collection. This collection has dimi nished in May. Symmetric renal function is seen with no hydronephrosis or suspicious renal mass. No pyelonephritis o r acute parenchymal process. No bladder abnormalities. No adrenal abnormalities. No dilated bowel loops or bowel wall thickening. Moderate stool volume present in the colon. No appen dicitis findings. No free air or pneumatosis. No other abnormal fluid collection. No suspicious bony findings. IMPRESSION: Since the May 29 study a large diameter long length biliary stent has been placed. Since May 29 imaging a pigtail right lobe intrahepatic drain has been placed. The midline pigt ail drain positioned along the left lobe liver capsule remains in place. A small recurrent or persistent 2.6 x 1.7 cm fluid collection is seen along the medial capsule margin of the liver superior to the duodenal bulb. Fluid collection is smaller than seen in May. No acute or GI abnormality.
--- NOTE | 2022-07-26 09:30 | EDPHYS ---
Physician Documentation [facility] Name: Wiley Anne Age: 61 yrs Sex: Male : 1960 Arrival Date: 07/26/2022 Time: 06:31 Bed 20 Private MD: MIHAELA Physician Nick Nuñez HPI: 07/26 07:02 This 61 yrs old Male presents to ER via Ambulatory with complaints of Nausea/Vomiting. rt 07:02 The patient presents to the emergency department with nausea, vomiting, abdominal pain. rt Onset: The symptoms/episode began/occurred acutely, 1 day(s) ago. The symptoms are aggravated by food , The symptoms are alleviated by nothing. Associated signs and symptoms: Pertinent positives: abdominal pain, Pertinent negatives: diarrhea. Severity of symptoms: At their worst the symptoms were moderate. The patient has experienced similar episodes in the past. Patient with 2 biliary drains placed presents to the ED with nausea, vomiting, belly pain for about 24 hours. Patient states that he was doing well previous to that. The states that the patient had one of the drains it was not draining well, however, after the vomiting, regained its ability to drain. Pain is generalized, aching nature, nonradiating, no other aggravating or alleviating factors. Patient states that he is unable to tolerate any liquids or solids.. Historical: - Allergies: 06:46 No Known Allergies; tw5 - PMHx: 06:46 CLL; tw5 - PSHx: 06:46 Cholecystectomy; abcess D/C; tw5 - Immunization history:: Flu vaccine is not up to date. - Social history:: Smoking status: Patient denies any tobacco usage or history of. - Family history:: not pertinent. ROS: 07:02 Constitutional: Negative for fever, chills, and weight loss, Eyes: Negative for injury, rt pain, redness, and discharge, ENT: Negative for injury, pain, and discharge, Neck: Negative for injury, pain, and swelling, Cardiovascular: Negative for chest pain, palpitations, and edema, Respiratory: Negative for shortness of breath, cough, wheezing, and pleuritic chest pain, Back: Negative for injury and pain, MS/Extremity: Negative for injury and deformity, Skin: Negative for injury, rash, and discoloration, Neuro: Negative for headache, weakness, numbness, tingling, and seizure, Psych: Negative for depression, anxiety, suicide ideation, homicidal ideation, and hallucinations. 07:02 Abdomen/GI: Positive for abdominal pain, nausea and vomiting. Exam: 07:02 Constitutional: This is a well developed, well nourished patient who is awake, alert, rt and in no acute distress. Head/Face: Normocephalic, atraumatic. Eyes: Pupils equal round and reactive to light, extra-ocular motions intact. Lids and lashes normal. Conjunctiva and sclera are non-icteric and not injected. Cornea within normal limits. Periorbital areas with no swelling, redness, or edema. ENT: Nares patent. No nasal discharge, no septal abnormalities noted. Tympanic membranes are normal and external auditory canals are clear. Oropharynx with no redness, swelling, or masses, exudates, or evidence of obstruction, uvula midline. Mucous membranes moist. Neck: Trachea midline, no thyromegaly or masses palpated, and no cervical lymphadenopathy. Supple, full range of motion without nuchal rigidity, or vertebral point tenderness. No Meningismus. Chest/axilla: Normal chest wall appearance and motion. Nontender with no deformity. No lesions are appreciated. Cardiovascular: Regular rate and rhythm with a normal S1 and S2. No gallops, murmurs, or rubs. Normal PMI, no JVD. No pulse deficits. Respiratory: Lungs have equal breath sounds bilaterally, clear to auscultation and percussion. No rales, rhonchi or wheezes noted. No increased work of breathing, no retractions or nasal flaring. Skin: Warm, dry with normal turgor. Normal color with no rashes, no lesions, and no evidence of cellulitis. MS/ Extremity: Pulses equal, no cyanosis. Neurovascular intact. Full, normal range of motion. Neuro: Awake and alert, GCS 15, oriented to person, place, time, and situation. Cranial nerves II-XII grossly intact. Motor strength 5/5 in all extremities. Sensory grossly intact. Cerebellar exam normal. Normal gait. Psych: Awake, alert, with orientation to person, place and time. Behavior, mood, and affect are within normal limits. 07:02 Abdomen/GI: [address], appears to be draining appropriately. There is tenderness diffusely with mild guarding, no rebound, no abdominal distention. Vital Signs: 06:45 BP 135 / 92; Pulse 100; Resp 18; Temp 98.1; Pulse Ox 100% ; Weight 48.99 kg; Height 5 tw5 ft. 2 in. (157.48 cm); Pain 6/10; 08:50 BP 114 / 82; Pulse 89; Resp 17; Pulse Ox 98% on R/A; vg1 10:00 BP 125 / 90; Pulse 88; Resp 16; Pulse Ox 97% on R/A; vg1 06:45 Body Mass Index 19.75 (48.99 kg, 157.48 cm) tw5 MDM: 06:55 Patient medically screened. rt 09:30 Differential diagnosis: Nonspecific abd pain, pancreatitis, appendicitis, rt diverticulitis, gastroenteritis. Data reviewed: vital signs, nurses notes, old medical records, lab test result(s), EKG, radiologic studies. ED course: Patient presents to the ED with nausea, vomiting, generalized abdominal pain. The patient symptoms are significantly improved with pain medications, fluids, Zofran in the ED. Patient is found to have an elevated lipase above baseline as well as recurrence of the fluid collection surrounding the pigtail. Unclear the chronicity of this recurrence of the fluid. Believe the patient has a pancreatitis. We will transfer patient for higher level of care, continuity of care.. 07/26 07:00 Order name: CBC with Diff; Complete Time: 08:28 rt 07/26 07:00 Order name: CMP; Complete Time: 08:28 rt 07/26 07:00 Order name: Lipase; Complete Time: 08:28 rt 07/26 07:00 Order name: CT Abd/Pelvis - IV Contrast Only; Complete Time: 09:10 rt 07/26 09:49 Order name: SARS RAPID vg1 07/26 07:00 Order name: IV Saline Lock; Complete Time: 07:40 rt 07/26 07:00 Order name: Labs collected and sent; Complete Time: 07:40 rt Administered Medications: 07:29 Drug: NS 0.9% 1000 ml Route: IV; Rate: 1 bolus; Site: left forearm; vg1 10:09 Follow up: IV Status: Completed infusion; IV Intake: 1000ml vg1 07:29 Drug: Zofran (Ondansetron) 4 mg Route: IVP; Site: left forearm; vg1 08:52 Follow up: Response: Marked relief of symptoms vg1 07:31 Drug: morphine 4 mg Route: IVP; Infused Over: 4 mins; Site: left forearm; vg1 08:52 Follow up: Response: Pain is decreased vg1 10:05 Drug: morphine 4 mg Route: IVP; Infused Over: 4 mins; Site: left forearm; vg1 11:18 Follow up: Response: No adverse reaction; Pain is decreased vg1 Disposition Summary: 07/26/22 09:30 Transfer Ordered Transfer Location: [facility] rt Reason: Higher level of care rt Condition: Stable rt Problem: an ongoing problem rt Symptoms: have improved rt Accepting Physician: Ishan(07/26/22 11:19) vg1 Diagnosis - Other chronic pancreatitis rt Forms: - Medication Reconciliation Form rt - SBAR form rt Signatures: Dispatcher [employer] Lavinia Uriostegui RN RN vg1 Mercedez Navarrete tw5 Nick Nuñez MD MD rt Corrections: (The following items were deleted from the chart) 09:56 09:30 [facility] doc rt rt 11:19 09:56 [facility] rt vg1
--- NOTE | 2022-07-26 09:30 | ER ---
Nurse's Notes [facility] Name: Wiley Anne Age: 61 yrs Sex: Male : 1960 Arrival Date: 07/26/2022 Time: 06:31 Bed 20 Private MD: Diagnosis: Other chronic pancreatitis Presentation: 07/26 06:45 Chief complaint: Patient states: "I thought I was going okay. I took two sips of my tw5 coffee yesterday morning and ever since I have throwing up. It has been 24 hours of vomiting now.". Coronavirus screen: Vaccine status: Patient reports being unvaccinated. Ebola Screen: Patient negative for fever greater than or equal to 101.5 degrees Fahrenheit, and additional compatible Ebola Virus Disease symptoms Patient denies exposure to infectious person. Patient denies travel to an Ebola-affected area in the 21 days before illness onset. Initial Sepsis Screen: Does the patient meet any 2 criteria? HR > 90 bpm. Does the patient have a suspected source of infection? Yes: Acute abdominal pain. Risk Assessment: Do you want to hurt yourself or someone else? Patient reports no desire to harm self or others. Onset of symptoms was July 25, 2022 at 08:00. 06:45 Method Of Arrival: Ambulatory tw5 06:45 Acuity: JASMIN 3 tw5 Triage Assessment: 06:46 General: Appears uncomfortable, slender, Behavior is calm, cooperative, appropriate for tw5 age. Pain: Complains of pain in abdomen Pain currently is 6 out of 10 on a pain scale. GI: Reports nausea, vomiting. Historical: - Allergies: 06:46 No Known Allergies; tw5 - PMHx: 06:46 CLL; tw5 - PSHx: 06:46 Cholecystectomy; abcess D/C; tw5 - Immunization history:: Flu vaccine is not up to date. - Social history:: Smoking status: Patient denies any tobacco usage or history of. - Family history:: not pertinent. Screenin:16 Abuse screen: Denies threats or abuse. Nutritional screening: No deficits noted. vg1 Tuberculosis screening: No symptoms or risk factors identified. Fall Risk No fall in past 12 months (0 pts). No secondary diagnosis (0 pts). IV access (20 points). Ambulatory Aid- None/Bed Rest/Nurse Assist (0 pts). Gait- Normal/Bed Rest/Wheelchair (0 pts) Mental Status- Oriented to own ability (0 pts). Total Mejía Fall Scale indicates No Risk (0-24 pts). Assessment: 07:16 General: Appears uncomfortable, Behavior is cooperative. Pain: Complains of pain in vg1 abdomen Pain currently is 6 out of 10 on a pain scale. Pain began 1 day ago. Neuro: Level of Consciousness is awake, alert, obeys commands, Oriented to person, place, time, situation. Cardiovascular: Patient's skin is warm and dry. Respiratory: Airway is patent Respiratory effort is even, unlabored. GI: Abdomen is flat, in place, Site clean. drainage bag; pt stated placed RUQ and epigastric area; cholecystectomy in May 2022 and drainage bag placed in June 2022. : No signs and/or symptoms were reported regarding the genitourinary system. EENT: No signs and/or symptoms were reported regarding the EENT system. Derm: Skin is pink, warm \\T\\ dry. Musculoskeletal: Circulation, motion, and sensation intact. 08:51 Reassessment: Patient appears in no apparent distress at this time. Patient and/or vg1 family updated on plan of care and expected duration. Pain level reassessed. Patient is alert, oriented x 3, equal unlabored respirations, skin warm/dry/pink. stated "morphine helped but now after the iv contrast im having some stomach cramps" Patient states feeling better. 10:09 Reassessment: Patient appears in no apparent distress at this time. Patient and/or vg1 family updated on plan of care and expected duration. Pain level reassessed. Patient is alert, oriented x 3, equal unlabored respirations, skin warm/dry/pink. 10:22 Reassessment: attempted to call report. vg1 10:57 Reassessment: Report given to Francisca LOPES. 1 Vital Signs: 06:45 BP 135 / 92; Pulse 100; Resp 18; Temp 98.1; Pulse Ox 100% ; Weight 48.99 kg; Height 5 tw5 ft. 2 in. (157.48 cm); Pain 6/10; 08:50 BP 114 / 82; Pulse 89; Resp 17; Pulse Ox 98% on R/A; vg1 10:00 BP 125 / 90; Pulse 88; Resp 16; Pulse Ox 97% on R/A; vg1 06:45 Body Mass Index 19.75 (48.99 kg, 157.48 cm) tw5 ED Course: 06:31 Patient arrived in ED. jj6 06:46 Triage completed. tw5 06:46 Arm band placed on. tw5 06:53 Nick Nuñez MD is Attending Physician. rt 07:11 Lavinia Cole, RN is Primary Nurse. vg1 07:16 Patient has correct armband on for positive identification. Placed in gown. Bed in low vg1 position. Call light in reach. Side rails up X 1. 07:22 Missed attempt(s): 20 gauge in left wrist. vg1 07:28 Initial lab(s) drawn, by me, sent to lab. Inserted saline lock: 20 gauge in left vg1 forearm, using aseptic technique. Blood collected. 08:38 CT Abd/Pelvis - IV Contrast Only In Process Unspecified. EDMS 09:57 initiated transfer to [facility]. bd 10:09 SARS RAPID Sent. vg1 10:19 pt accepted in transfer to [facility] by dr Saad Lopez, admin approval given by john Rocha, pt going to 10 D rm [id number]. 11:18 No provider procedures requiring assistance completed. Patient transferred, IV remains vg1 in place. Administered Medications: 07:29 Drug: NS 0.9% 1000 ml Route: IV; Rate: 1 bolus; Site: left forearm; vg1 10:09 Follow up: IV Status: Completed infusion; IV Intake: 1000ml vg1 07:29 Drug: Zofran (Ondansetron) 4 mg Route: IVP; Site: left forearm; vg1 08:52 Follow up: Response: Marked relief of symptoms vg1 07:31 Drug: morphine 4 mg Route: IVP; Infused Over: 4 mins; Site: left forearm; vg1 08:52 Follow up: Response: Pain is decreased vg1 10:05 Drug: morphine 4 mg Route: IVP; Infused Over: 4 mins; Site: left forearm; vg1 11:18 Follow up: Response: No adverse reaction; Pain is decreased vg1 Medication: 07:16 VIS not applicable for this client. vg1 Intake: 10:09 IV: 1000ml; Total: 1000ml. vg1 Outcome: 09:30 ER care complete, transfer ordered by . rt 10:56 Transferred to [facility]. vg1 10:56 Condition: good 10:56 Instructed on the need for transfer. 11:19 Patient left the ED. vg1 Signatures: Dispatcher [employer] EDCandida Gaspar Victoria RN RN vg1 Mercedez Navarrete tw5 Francisca Carl jj6 Nick Nuñez MD MD rt
[2022-07-26 10:31] LABS: SARS-CoV-2 Antigen Rapid Res Negative (Negative)
[2022-07-26 11:23] VITALS: TEMP 98.1
[2022-07-26 11:26] VITALS: BP 125/90; O2SAT 97
== END 2022-07-26 11:19 | disposition short-term general hospital (02) ==
LOC: ER 06:28
DX: K86.1 Other chronic pancreatitis (principal); Z20.822 Contact with and (suspected) exposure to COVID-19
CPT/HCPCS: 85025; 36415; 83690; 80053; 74177; 87811; Q9967; J7030; J2405; 96361; 96374; 96375; 99285

== ENCOUNTER 2023-02-07 10:13 | Emergency (ER) | payer OTHER ==
--- OUTSIDE RECORDS SUMMARY | 2023-02-07 10:56 | XMS REPORT | Continuity of Care Document ---
:1960 Author Organization [facility] t Address [address] [place] [address] [place] [id number] Care Team Providers Name Role Phone Jordan Juarez Mac Primary Care Physician RADHA OTTO Attending Clinician Unavailable Chris Brown MD Attending Clinician HEIDI LUGO Attending Clinician Unavailable Deniz Cervantes MD Attending Clinician Heidi Lugo MD Attending Clinician Doctor Unassigned, [place] Attending Clinician Unavailable Cherie Schmidt DO Attending Clinician Tessa Hutchison LVN Attending Clinician KHANG LINARES Attending Clinician Unavailable Chris Romero MD Attending Clinician Khang Linares DO Attending Clinician Branden Antoine MD Attending Clinician Melvin Anguiano MD Attending Clinician Yulissa Ramírez CRNA Attending Clinician HUNTER COULTER Attending Clinician Unavailable Faculty, Surgery Transplant Attending Clinician Unavailable CASIE CALLEJAS Attending Clinician Unavailable Jose Elias Sheikh MD Attending Clinician Yoni Mckee MD Attending Clinician South PORRAS, Heath Jay Attending Clinician HEATH DIA Attending Clinician Unavailable Gomez Hui MD Attending Clinician Nuvia Burton Attending Clinician Unavailable Ayan PORRAS, Larisa Pedersen Attending Clinician [phone] Leticia PORRAS, Goran Attending Clinician Elizabeth PORRAS, Casie Lock Attending Clinician Cheryl Bee Attending Clinician Unavailable GENARO VELÁSQUEZ Attending Clinician Unavailable Merchant PORRAS, Ayo Attending Clinician Mian PORRAS, Isidro Attending Clinician Christen PORRAS, Genaro Doyle Attending Clinician [phone] Georgiana Clarke MD Attending Clinician SANDRA DAMICO Attending Clinician Unavailable Juliano PORRAS, Yue Horton Attending Clinician Sandra Damico MD Attending Clinician Holly Martinez MD Attending Clinician David Michael MD Attending Clinician Radha Otto Attending Clinician Ashvin Carter Attending Clinician Unavailable RADHA OTTO Admitting Clinician Unavailable HEIDI LUGO Admitting Clinician Unavailable Heidi Lugo MD Admitting Clinician CHRIS ROMERO Admitting Clinician Unavailable Chris Romero MD Admitting Clinician JOSE ELIAS SHEIKH Admitting Clinician Unavailable Heath Dia MD Admitting Clinician HEATH DIA Admitting Clinician Unavailable CASIE JOHNSON Admitting Clinician Unavailable GEORGIANA CLARKE Admitting Clinician Unavailable SANDRA DAMICO Admitting Clinician Unavailable YUE MOULTON Admitting Clinician Unavailable Jordan Juarez Admitting Clinician Unavailable Payers Payer Name Policy Type Policy Number Effective Date Expiration Date Markell CUEVAS [id number] 2021 00:00:00 Problems Condition Condition Condition Status Onset Resolution Last Treating Co mments Source Name Details Category Date Date Treatment Clinician Date Biliary Biliary Disease Active Univers drain drain 3-27 [place], 00 Medical sequela sequela Branch E46 E46 Disease Active 2021-09 Univers Unspecifie Unspecifie 1-22 it y of d severe d severe 00:00: [place] protein-ca protein-ca 00 Me dical kendall kendall Branch 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 2021-09 U nivers is, is, 1-21 [place] of recurrent [place] Biliary Biliary Disease Active 2021-09 Univers anastomoti anastomoti 0-18 it y of c leak at c leak at 00:[place] site of T site of T 00 Medi daniel tube tube Branch insertion insertion Bile leak, Bile leak, Disease Active 2021-09 U nivers postoperat postoperat 0-14 it y of prince prince 00:00: [place] 00 Medical Branch E44.0 E44.0 Disease Active 2021-09 Univers Moderate Moderate 0-14 ity of protein protein 00:00: [place] calorie calorie 00 Medical malnutriti malnutriti Br anch on on Biloma Biloma [facility] Bile leak Bile leak Disease [facility] Biliary Biliary Disease Active [facility] anastomoti anastomoti 9-05 Brandi kes c leak c leak 00:00: Medical 00 Center Pneumonia Pneumonia Disease Active 2015-[address] [facility] of both of both [facility]04 [facility] lower lower 00:00: Medical lobes due lobes due 00 Cent er to to infectious infectious organism organism Hyponatrem Hyponatrem Disease Active 2015-[address] [facility] ia [facility] 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 10-07 Brandi kes ban ban 00:00: Medical 00 Center SIRS SIRS Disease Recurre 2015-[address] (systemic (systemic nce 10-07 [facility] inflammato inflammato 00:00: Me dical ry ry 00 Center response response syndrome) syndrome) Lymphoma, Lymphoma, Disease Recurre 2015-[address] low grade low grade nce 10-07 [facility] 00:[facility]: Medical 00 Center Thrombocyt Thrombocyt Disease Active 2015-[address] openia openia 10[facility]06 [facility] Weakness Weakness Disease Active 2015-09 [facility] Anemia Anemia Disease Active 2015-[address] [facility] Thrombocyt Thrombocyt Disease Active 2015-[address] [facility]ia openia [facility] Shortness Shortness Disease Active 2015-[address] of breath of breath 10-06 [facility] 00:[facility]: Medical 00 Center Other Other Problem Active Common chronic chronic Spirit pain pain - [facility] Allergic Allergic Problem Active Commo n rhinitis, rhinitis, Spir it seasonal seasonal - [facility] Essential Essential Problem Active Com mon (primary) (primary) Spir it hypertensi hypertensi - [facility] on on [facility] Paresthesi Paresthesi Problem Active C ommon a of skin a of skin Spir it - [facility] Scratched Scratched Problem Active Com mon by cat, by cat, Spirit initial initial - [facility] encounter encounter [facility] Asthmatic Asthmatic Problem Active Com mon bronchitis bronchitis Sp epifanio - [facility] CLL CLL Problem Active Common (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Spirit lymphocyti lymphocyti - [facility] leukemia) leukemia) [facility] Tenosynovi Tenosynovi Diagnosis Active Common tis of tis of Spirit left ankle left ankle - [facility] Pain in Pain in Diagnosis Active Commo n left ankle left ankle Sp epifanio and joints and joints - CHI of left of left foot foot [facility] Sprain of Sprain of Diagnosis Active C ommon other other Spirit ligament ligament - CHI of left of left ankle, ankle, [facility] sequela sequela [facility] Allergies, Adverse Reactions, Alerts Allergy Allergy Status Severity Reaction(s) Onset Inactive Treating Comm ents Source Name Type Date Date Clinician No Known DA Active U 2016- [facility] Allergie 10-05 Clear s 00:00: Rodríguez 00 [facility] Ondanset Adverse Active Info Not Commo n becca Reaction Available Spiri t - [facility] Lisinopr Adverse Active headache, Comm on il Reaction numbness/tin Sp epifanio gling to R - [facility] arm [facility] Hydrocod Adverse Active Info Not Commo n one-Acet Reaction Available Spi rit aminophe - CHI n [facility] NO KNOWN Drug Active Univers ALLERGIE Class ity of S [place] [facility] NO KNOWN Allergy Active [facility] ALLERGIE S Social History Social Habit Start Date Stop Date Quantity Comments Source History of tobacco Passive smoker Un iversity of use [place] [facility] History SDOH University o f Alcohol Std Drinks [place] [facility] History SDOH University o f Alcohol Binge [place] [facility] al Branch History SDOH Social Unive rsity of Connections Get [place] Med ical Together Branch History SDOH Social Unive rsity of Connections [facility] Medical Branch History SDOH Social Unive rsity of Connections [place] [facility] Membership Branch History SDOH Social Unive rsity of Connections [place] [facility] Meetings Branch Exposure to 2022-12-10 2022-12-20 Not sure University of SARS-CoV-2 (event) 00:00:00 08:36:00 [place] [facility] History SDOH 2022-11-30 2022-11-30 1 University o f Alcohol Frequency 00:00:00 00:00:00 [place] M edical Branch History SDOH Social 2022-11-30 2022-11-30 1 Unive rsity of Connections Phone 00:00:00 00:00:00 [place] M edical Branch History SDOH Social 2022-11-30 2022-11-30 3 Unive rsity of Connections Living 00:00:00 00:00:00 [place] [facility] History SDOH 2022-11-30 2022-11-30 0 University o f Physical Activity 00:00:00 00:00:00 [place] M edical DPW Branch History SDOH 2022-11-30 2022-11-30 0 University o f Physical Activity 00:00:00 00:00:00 [place] [facility]ical MPS Branch History SDOH 2022-11-30 2022-11-30 5 University o f Financial 00:00:00 00:00:00 [place] [facility] History SDKS Food 2022-11-30 2022-11-30 1 Univers ity of Worry 00:00:00 00:00:00 [place] [facility] History SDOH Food 2022-11-30 2022-11-30 1 Univers ity of Scarcity 00:00:00 00:00:00 [place] [facility] History [facility] 2022-11-30 2022-11-30 2 University o f Transport Med 00:00:00 00:00:00 [place] Medic al Branch History [facility] 2022-11-30 2022-11-30 2 University o f Transport Non-Med 00:00:00 00:00:00 [place] M edical Branch History [facility] 2022-11-30 2022-11-30 2 University o f Housing Unable to 00:00:00 00:00:00 [place] M edical Pay Branch History [facility] 2022-11-30 2022-11-30 1 University o f Housing Places 00:00:00 00:00:00 [place] Medi daniel Lived Branch History [facility] 2022-11-30 2022-11-30 2 University o f Housing Homeless 00:00:00 00:00:00 [facility] dical Last Year Branch Alcohol intake 2022-11-29 2022-11-29 Ex-drinker [facility] 00:00:00 00:00:00 (finding) [facility] Education 2022-11-29 2022-11-29 13 [facility] 00:00:00 00:00:00 [facility] Tobacco use and 2022-07-26 2022-07-26 Smokeless Universit y of exposure 00:00:00 00:00:00 tobacco non-user [facility] dical Branch Sex Ass[birth year] At [birth year] Universit y of 00:00:00 00:00:00 [facility] Smoking Status Start Date Stop Date Source Never smoked tobacco [facility] Medications Ordered Filled Start Stop Current Ordering Indication Dosage Frequency Signature Comments Components Source Medication Medication Date Date Medication? Clinician (SIG) Name Name traMADoL No 50mg 50 mg, Univer s (ULTRAM) 11-30 Oral, ONCE ity of tablet 50 19:00: 19:19 NOW, 1 [place] mg 00 :00 dose, On Medical [facility] 11/30/22 at 1400, Routine ibrutinib 2022-0 2022- No 1{tbl} Take 1 Uni vers (IMBRUVICA) 11-30 tablet by it y of 420 mg Tab 18:00: 00:00 [place] :00 the Medical morning. Branch ALBUTEROL 2022- No Inhale as Un brayan INHALE 11-30 needed. ity of 18:00: 00:00 [place] 53 :00 Medical Branch pantoprazol 0 Yes 40mg 40 mg, Univ ers e 11-30 Oral, ity of (PROTONIX) 14:00: DAILY, [place] EC tablet 00 First dose Medi daniel 40 mg on [facility] 11/30/22 at 0900, Until Discontinu ed, Routine enoxaparin 2022-0 Yes 40mg 40 mg, Unive rs (LOVENOX) 11-30 Subcutaneo ity of injection 14:00: [place], DAILY, [place] 40 mg 00 First dose Medical on [facility] 11/30/22 at 0900, Until Discontinu ed, Routine tamsulosin 0 Yes .4mg 0.4 mg, Univ ers (FLOMAX) 11-30 Oral, ity of capsule 0.4 14:00: DAILY, [place] mg 00 First dose Medical on [facility] 11/30/22 at 0900, Until Discontinu ed, Routine ibrutinib 0 Yes 420mg 420 mg, Univ ers (IMBRUVICA) 11-30 Oral, ity of capsule 420 14:00: DAILY, [place] mg 00 First dose Medical on [facility] 11/30/22 at 0900, Until Discontinu ed iopamidol 0 2022- No [id number] 80mL 80 mL, Univers (ISOVUE 11-30 Intravenou ity o f 370-500 mL) 01:02: 01:15 s, ONCE, 1 [place] injection 00 :00 dose, On Medica l 80 mL [facility] 11/29/22 at 2015, Routine cyclobenzap 2022-0 Yes 5mg 5 mg, Unive rs rine 11-30 Oral, TID, ity of (FLEXERIL) 01:00: First dose [place] tablet 5 mg [address] [facility] Medica l 11/29/22 at Branch 2000, Until Discontinu ed, Routine ondansetron 0 Yes 4mg 4 mg, Slow Univers (ZOFRAN 11-29 IV Push, ity of (PF)) 23:14: Q6HPRN, [place] injection 4 01 Starting Medi adniel mg on [facility] Branch 11/29/22 at 1814, Until Discontinu ed, Routine, Nausea and Vomiting (N/V) albuterol 0 Yes 2.5mg 2.5 mg, Univ ers (PROVENTIL) 11-29 Inhalation it y of 2.5 mg /3 23:10: , Q4HPRN, [place] as mL (0.083 46 Starting Medica l %) on [facility] nebulizer 11/29/22 at solution 1810, 2.5 mg Until Discontinu ed, Shortness of Breath ondansetron 2022-0 202- No 4mg 4 mg, Univ ers (ZOFRAN-ODT 11-29 Oral, ity of ) 22:45: 22:09 ONCE, 1 [place] disintegrat 00 :00 dose, On Medi daniel ing tablet [facility] 4 mg 11/29/22 at 1745, Routine HYDROcodone 2022-0 2022- No 1{tbl} 1 tablet, Univers -acetaminop 11-29 Oral, ity of hen (NORCO 22:00: 22:10 ONCE, 1 [place] 5) 5-325 mg 00 :00 dose, On Medi daniel tablet 1 [facility] tablet 11/29/22 at 1700, VIVIENNE ibrutinib 2021-09 Yes 1{tbl} Take 1 Univ ers (IMBRUVICA) 2-03 tablet by ity of 420 mg Tab 13:21: mouth in [place] 14 the Medical morning. [place] ALBUTEROL 2021-09 Yes Inhale as Uni vers INHALE 2-03 needed. ity of 13:21: [address] ibrutinib 2021-09 Yes 1{tbl} Take 1 Univ ers (IMBRUVICA) 2-03 tablet by ity of 420 mg Tab 13:21: mouth in [place] 14 the Medical morning. Branch ALBUTEROL 2021-09 Yes Inhale as Uni vers INHALE 2-03 needed. ity of 13:21: [address] 2021-09 Yes 1{tbl} Take 1 Univ ers (IMBRUVICA) 2-03 tablet by ity of 420 mg Tab 13:21: mouth in [place] 14 the Medical morning. Branch ALBUTEROL 2021-09 Yes Inhale as Uni vers INHALE 2-03 needed. ity of 13:21: [address] ibrutinib 2021-09 Yes 1{tbl} Take 1 Univ ers (IMBRUVICA) 2-03 tablet by ity of 420 mg Tab 13:21: mouth in [place] 14 the Medical morning. Branch ALBUTEROL 2021-09 Yes Inhale as Uni vers INHALE 2-03 needed. ity of 13:21: [address] 2021-09 Yes 1{tbl} Take 1 Univ ers (IMBRUVICA) 2-03 tablet by ity of 420 mg Tab 13:21: mouth in [place] 14 the Medical morning. Branch ALBUTEROL 2021-09 Yes Inhale as Uni vers INHALE 2-03 needed. ity of 13:21: [address] 2021-09 Yes 1{tbl} Take 1 Univ ers (IMBRUVICA) 2-03 tablet by ity of 420 mg Tab 13:21: mouth in [place] 14 the Medical morning. Branch ALBUTEROL 2021-09 Yes Inhale as Uni vers INHALE 2-03 needed. ity of 13:21: [address] 2021-09 Yes 1{tbl} Take 1 Univ ers (IMBRUVICA) 2-03 tablet by ity of 420 mg Tab 13:21: mouth in [place] 14 the Medical morning. Branch ALBUTEROL 2021-09 Yes Inhale as Uni vers INHALE 2-03 needed. ity of 13:21: [address] ibrutinib 2021-09 Yes 1{tbl} Take 1 Univ ers (IMBRUVICA) 2-03 tablet by ity of 420 mg Tab 13:21: mouth in [place] 14 the Medical morning. Branch ALBUTEROL 2021-09 Yes Inhale as Uni vers INHALE 2-03 needed. ity of 13:21: [address] iohexol 2021-09- No [id number] 100mL 100 mL, Univers (OMNIPAQUE 2-03 12-03 Injection, it y of 300-100 mL) 01:45: 01:36 ONCE, 1 [place] injection 00 :00 dose, On Medica l 100 mL Fri [place] 08/06/22 at 1945, Routine lidocaine 2021-09 Yes PRN, Univers 1% (PF) 203 Starting ity of (XYLOCAINE) 00:25: on [place] 08 [place]22 at [facility] [address] Until Discontinu ed, Routine FENTanyl PF 2021-09 Yes Slow IV Uni vers (SUBLIMAZE 2 Push, PRN, ity of (PF)) 00:25: Starting [place] injection [address] on [facility] 08/06/22 at [place] 1825, Until Discontinu ed, Routine midazolam 2021-09 Yes IV Push, Univ ers (VERSED) 2-03 PRN, ity of injection 00:25: [place] 03 on [facility] 08/06/22 at [place] 1825, Until Discontinu ed, Routine levoFLOXaci 2021-09- No [id number] 750mg Take 1 Univers n 750 mg 10-08 8 tablet by ity o f tablet 00:00: 05:59 mouth [place] 00 :00 every 24 Medical ([facility] ur) hours for 2 days. levoFLOXaci 2021-09- No [id number] 750mg Take 1 Univers n 750 mg 10-08 8 tablet by ity o f tablet 00:00: 05:59 mouth [place] 00 :00 every 24 Medical ([facility] ur) hours for 2 days. amoxicillin 2021-09- No [id number] 1{tbl} Take 1 Univers -clavulanat 10-08 8 tablet by it y of e 875-125 00:00: 00:00 mouth in [place] mg per 00 :00 the Medical tablet morning Branch and 1 tablet in the evening. Do all this for 2 days. amoxicillin 2021-09- No [id number] 1{tbl} Take 1 Univers -clavulanat 10-08 8 tablet by it y of e 875-125 00:00: 00:00 mouth in [place] mg per 00 :00 the Medical tablet morning Branch and 1 tablet in the evening. Do all this for 2 days. cefTRIAXone 2021-09 No 2000mg 2,000 mg, Univers (ROCEPHIN) 10-06 1206 Intravenou it y of 2,000 mg in 00:30: 00:29 s, Q24H [place] water for 00 :00 ABX, 5 Medical injection, doses, Branch sterile 20 First dose mL SIVP on Wed syringe 08/04/22 at 1830, Last dose on 08/08/22 at 1830, 20 mL
Reas on for Anti-Infec tive: Documented Infection< br>Documen loki Infection Site: Blood
D uration of Therapy: 10 days cefTRIAXone 2021-09 No 2000mg 2,000 mg, Univers (ROCEPHIN) 10-02 Intravenou it y of 2,000 mg in 18:15: 19:16 s, Q24H [place] water for 00 :25 ABX, 7 Medical injection, doses, Branch sterile 20 First dose mL SIVP (after syringe last modificati on) on 08/02/22 at 1215, Last dose on [place] 08/08/22 at 1215, 20 mL
Reas on for Anti-Infec tive: Documented Infection& lt;br>Docu mented Infection Site: Abdominal< br>Duratio n of Therapy: 7 days cefTRIAXone 2021-09 No 1000mg 1,000 mg, Univers (ROCEPHIN) 10-01 Intravenou it y of 1,000 mg in 18:15: 16:45 s, Q24H [place] NaCl 0.9% 00 :56 ABX, 5 Medical (NS) 50 mL doses, Branch MINI-BAG First dose on [place] 08/01/22 at 1215, Last dose on [place] 08/05/22 at 1215, Administer over 30 Minutes, 50 mL
Reas on for Anti-Infec tive: Documented Infection< br>Documen loki Infection Site: Abdominal< br>Duratio n of Therapy: 7 days KCL 20 2021-09 No 40meq 40 mEq, Univer s mEq/15 mL 10-01 Oral, ity of solution 40 15:30: 15:29 ONCE, 1 [place] mEq 00 :00 dose, On Medical [place] Branch 08/01/22 at 0930, Routine KCL 20 2021-09 No 40meq 40 mEq, Univer s mEq/15 mL 09-30 Oral, ity of solution 40 14:00: 15:03 ONCE, 1 [place] mEq 00 :00 dose, On [facility] Branch 07/31/22 at 0800, Routine piperacilli 2021-09- No 3.375g 3.375 g, Univers n-tazobacta 09-29 IV ity of m (ZOSYN) 20:45: 15:34 [place]back, [place] 3.375 g in 00 :02 Q8H ABX, Medic al NaCl 0.9% 15 doses, Branc h (NS) 50 mL First dose MINI-BAG on Tue07/30/22 at 1445, Last dose on Tue08/04/22 at 0645, Administer over 4 Hours, 50 mL
Reas on for Anti-Infec tive: Empiric Therapy for Suspected Infection< br>Empiric Therapy Site: Abdominal< br>Duratio n of therapy: 5 days ibrutinib 2021-09 Yes 420mg 420 mg, Univ ers (IMBRUVICA) 09-29 Oral, ity of Tab 420 mg 15:00: DAILY, [place] First dose Medical on Tue Branch 07/30/22 at 0900, Until Discontinu ed, Routine KCL 20 2021-09 No 40meq 40 mEq, Univer s mEq/15 mL 09-29 Oral, ity of solution 40 15:00: 14:22 ONCE, 1 [place] mEq 00 :00 dose, On [facility] Tue [place] 07/30/22 at 0900, Routine lactated 2021-09 No 30mL/kg at 999 Uni vers ringers IV 09-29 11-25 mL/hr, ity of infusion 13:15: 12:39 1,455 mL [place] 1,455 mL 00 :35 (30 mL/kg Medica l ?48.5 kg), Branch Intravenou s, ONCE, 1 dose, On Tue07/30/22 at 0715, Routine piperacilli 2021-09- No 3.375g 3.375 g, Univers n-tazobacta 09-29 IV ity of m (ZOSYN) 13:00: 13:15 [place], [place] 3.375 g in 00 :00 ONCE, 1 Medica l NaCl 0.9% dose, On Branch (NS) 50 mL Fri MINI-BAG 07/30/22 at 0700, Administer over 30 Minutes, 50 mL
Reas on for Anti-Infec tive: Documented Infection< br>Documen loki Infection Site: Abdominal< br>Duratio n of Therapy: 7 days acetaminoph 2021-09 Yes 650mg 650 mg, Un brayan en 09-29 Oral, ity of (TYLENOL) 12:08: Q6HPRN, [place] tablet 650 17 Starting Medic al mg on Tue Branch 07/30/22 at 0608, Until Discontinu ed, Routine, Pain (scale 1-3), Temp > 38.5 C pantoprazol 2021-09 Yes 40mg 40 mg, Univ ers e 09-28 Oral, ity of (PROTONIX) 16:30: DAILY, [place] EC tablet 00 First dose Medi daniel 40 mg (after Branch last modificati on) on [place] 07/29/22 at 1030, Until Discontinu ed, Routine HYDROcodone 2021-09- No 1{tbl} 1 tablet, Univers -acetaminop 09-28 Oral, ity of hen (NORCO) 02:15: 02:29 ONCE, 1 [place] 10-325 mg 00 :00 dose, On Medica l tablet 1 Tue Branch tablet 07/28/22 at 2015, Routine cyclobenzap 2021-09 Yes 5mg 5 mg, Unive rs rine 09-28 Oral, TID, ity of (FLEXERIL) 02:00: First dose [place] tablet 5 mg 00 on Tue Medica l 07/28/22 Branch at 2000, Until Discontinu ed, Routine lactated 2021-09- No 500mL at 999 Unive rs ringers IV 09-28 11-24 mL/hr, 500 it y of infusion 01:41: 02:35 mL, [place] 500 mL 00 :55 Intravenou Medical s, ONCE, 1 Branch dose, On Tue07/28/22 at 1945, Routine iohexol 2021-09- No [id number] 100mL 100 mL, Univers (OMNIPAQUE 09-27 Injection, it y of 300-100 mL) 22:00: 21:59 ONCE, 1 [place] injection 00 :00 dose, On Medica l 100 mL [facility] Branch 07/28/22 at 1600, Routine piperacilli 2021-09- No [id number] 3.375g 3.375 g, Univers n-tazobacta 09-27 IV ity of m (ZOSYN) 18:45: 18:10 [place], [place] 3.375 g in 00 :00 ONCE, 1 Medica l NaCl 0.9% dose, On Branch (NS) 50 mL Wed MINI-BAG 07/28/22 at 1245, Administer over 30 Minutes, 50 mL
Reas on for Anti-Infec tive: Surgical Prophylaxi s
Surgi daniel Prophylaxi s: Other (see Comments)< br>Duratio n of therapy: within 24 hours of surgery FENTanyl PF 2021-09- No Slow IV Un brayan (SUBLIMAZE 09-27 Push, PRN, it y of (PF)) 17:57: 21:45 Starting [place] injection 00 :52 on [facility] 07/28/22 Branch at 1157, Until Discontinu ed, Routine midazolam 2021-09- No IV Push, Uni vers (VERSED) 09-27 PRN, ity of injection 17:56: 20:52 Starting [place] as 00 :00 on [facility] 07/28/22 Branch at 1156, Until Discontinu ed, Routine ondansetron 2021-09- No Slow IV Un brayan (ZOFRAN 09-27 Push, PRN, ity o f (PF)) 17:51: 17:51 Starting [place] injection 05 :05 on [facility] 07/28/22 Branch at 1151, Until Discontinu ed, Routine gadobenate 2021-09- No [id number] .2mL/kg 9.7 mL Univers dimeglumine 09-27 (0.2 mL/kg i ty of (MULTIHANCE 04:30: 04:11 ?48.5 kg), [place] -10 mL) 00 :00 Intravenou Medica l injection s, ONCE, 1 Bran ch 9.7 mL dose, On Tue07/27/22 at 2230, Routine maalox:diph 2021-09 Yes 15mL 15 mL, [facility] ers enhydrAMINE 09-27 Oral, ity of :lidocaine 01:45: DAILY, [place] 2 % viscous 00 First dose Me dical 1:1:1 on [facility] Branch (FIRST-MOUT 07/27/22 HWASH BLM) at 1945, oral Until suspension Discontinu 15 mL ed, Routine FENTanyl PF 2021-09- No Slow IV Un brayan (SUBLIMAZE 09-26 Push, PRN, it y of (PF)) 23:22: 23:49 Starting [place] injection 40 :07 on [facility] 07/27/22 Branch at 1722, Until Discontinu ed, Routine midazolam 2021-09- No IV Push, Uni vers (VERSED) 09-26 PRN, ity of injection 23:22: 23:49 Starting [place] 33 :01 on [facility] 07/27/22 Branch at 1722, Until Discontinu ed, Routine proMETHazin 2021-09- No 25mg 25 mg, IV Univers e 09-26 Piggyback, ity of (PHENERGAN) 19:44: 17:55 at 200 [place] as 25 mg in NS 49 :51 mL/hr Medical 50 mL IV Administer Branc h piggyback over 15 (CNR) Minutes, Q4HPRN, Starting on Tue07/27/22 at 1344, Until Tue07/30/22 at 1155, Routine, N/V unresponsi ve to Ondansetro n proMETHazin 2021-09- No 12.5mg 12.5 mg, Univers e 09-26 IV ity of (PHENERGAN) 16:12: 19:44 Piggyback, [place] 12.5 mg in 03 :59 at 200 Medical NS 50 mL IV mL/hr Branch piggyback Administer (CNR) over 15 Minutes, Q4HPRN, Starting on Tue07/27/22 at 1012, Until Tue07/27/22 at 1344, Routine, N/V unresponsi ve to Ondansetro n tamsulosin 2022-1 Yes .4mg 0.4 mg, [facility] ers (FLOMAX) 09-26 Oral, ity of capsule 0.4 15:00: DAILY, [place] mg 00 First dose Medical on Tue07/27/22 at 0900, Until Discontinu ed, Routine KCL 2021-09- No 40meq 40 mEq, Univers (KLOR-CON 09-26 Oral, ity of M20) tablet 10:00: 09:34 ONCE, 1 [place] 40 mEq 00 :00 dose, On Medical Tue07/27/22 at 0400, Routine simethicone 2021-09 Yes 80mg 80 mg, [facility] ers (GAS RELIEF 09-26 Oral, ity of (SIMETHICON 09:15: [place] 00 First dose Medical chewable on Tue tablet 80 07/27/22 mg at 0315, Until Discontinu ed, Routine lactated 2021-09- No 1000mL at 125 [facility] ers ringers IV 09-25 11-29 mL/hr, ity of infusion 22:15: 16:45 1,000 mL, [place] 1,000 mL 00 :21 IV Medical Infusion, Branch CONTINUOUS , Starting on Tue07/26/22 at 1615, Until Tue08/03/22 at 1045, Routine lactated 2021-09- No 1000mL at 999 [facility] ers ringers IV 09-25 11-21 mL/hr, ity of infusion 22:00: 23:20 1,000 mL, [place] 1,000 mL 00 :56 Intravenou Medic al s, ONCE, 1 Branch dose, On Tue07/26/22 at 1600, Routine HYDROcodone 2021-09 Yes 1{tbl} 1 tablet, Univers -acetaminop 09-25 Oral, ity of hen (NORCO 21:34: Q6HPRN, [place] 5) 5-325 mg 10 Starting Medi daniel tablet 1 on Tue Branch tablet 07/26/22 at 1534, Until Discontinu ed, Routine, Pain (scale 7-10) ondansetron 2021-09- No 4mg 4 mg, Slow Univers (ZOFRAN 09-25 11-25 IV Push, ity of (PF)) 21:08: 17:55 Q6HPRN, [place] injection 4 28 :51 Starting Medi daniel mg on Mon Branch 07/26/22 at 1508, Until 07/30/22 at 1155, Routine, Nausea and Vomiting (N/V) albuterol 2021-09 Yes 1{puff} 1 Puff, [place] (VENTOLIN) 1-21 Inhalation ity of inhaler 1 20:09: , Q4HPRN, [place] Puff 56 Starting Medical on Tue Branch 07/26/22 at 1409, Until Discontinu ed, Shortness of Breath, Wheezing, Chest tightness, Bronchospa sm ibrutinib 2021-09 Yes 1{tbl} Take 1 Univ ers (IMBRUVICA) 1-21 tablet by ity of 420 mg Tab 14:11: mouth in [place] 06 the Medical morning. Branch ALBUTEROL 2021-09 Yes Inhale as Uni vers INHALE 1-21 needed. ity of 14:11: [address] ibrutinib 2021-09 Yes 1{tbl} Take 1 Univ ers (IMBRUVICA) 1-21 tablet by ity of 420 mg Tab 14:11: mouth in [place] 06 the Medical morning. Branch ALBUTEROL 2021-09 Yes Inhale as Uni vers INHALE 1-21 needed. ity of 14:11: [address] ibrutinib 2021-09 Yes 1{tbl} Take 1 Univ ers (IMBRUVICA) 1-21 tablet by ity of 420 mg Tab 14:11: mouth in [place] 06 the Medical morning. Branch ALBUTEROL 2021-09 Yes Inhale as Uni vers INHALE 1-21 needed. ity of 14:11: [address] ibrutinib 2021-09 Yes 1{tbl} Take 1 Univ ers (IMBRUVICA) 1-21 tablet by ity of 420 mg Tab 14:11: mouth in [place] 06 the Medical morning. Branch ALBUTEROL 2021-09 Yes Inhale as Uni vers INHALE 1-21 needed. ity of 14:11: [address] ibrutinib 2021-09 Yes 1{tbl} Take 1 Univ ers (IMBRUVICA) 1-21 tablet by ity of 420 mg Tab 14:11: mouth in [place] 06 the Medical morning. Branch ALBUTEROL 2021-09 Yes Inhale as Uni vers INHALE 1-21 needed. ity of 14:11: [address] ibrutinib 2021-09 Yes 1{tbl} Take 1 Univ ers (IMBRUVICA) 1-21 tablet by ity of 420 mg Tab 14:11: mouth in [place] 06 the Medical morning. Branch ALBUTEROL 2021-09 Yes Inhale as Uni vers INHALE 1-21 needed. ity of 14:11: [address] ibrutinib 2021-09 Yes 1{tbl} Take 1 Univ ers (IMBRUVICA) 1-21 tablet by ity of 420 mg Tab 14:11: mouth in [place] 06 the Medical morning. Branch ALBUTEROL 2021-09 Yes Inhale as Uni vers INHALE 1-21 needed. ity of 14:11: [address] iopamidol 2021-09- No [id number] 80mL 80 mL, Univers (ISOVUE 09-09 Intravenou ity o f 370-500 mL) 01:15: 00:24 s, ONCE, 1 [place] injection 00 :00 dose, On Medica l 80 mL Fri Branch 07/09/22 at 2015, Routine ondansetron 2021-09- No 4mg 4 mg, Slow Univers (ZOFRAN 09-09 IV Push, ity of (PF)) 00:45: 00:36 ONCE, 1 [place] injection 4 00 :00 dose, On Medi daniel mg Fri Branch 07/09/22 at 1945, [place] ibrutinib 2021-09 Yes 420mg QD Take [address] [facility] (Imbruvica) 0-31 mg by [facility] mg Tab 12:20: mouth Medica l 21 daily. [place] ibrutinib 2021-09 Yes 420mg QD Take [address] (Imbruvica) 0-31 mg by [facility] mg Tab 12:20: mouth Medica l 21 daily. [place] ibrutinib 2021-09 Yes 420mg QD Take [address] (Imbruvica) 0-31 mg by [facility] mg Tab 12:20: mouth Medica l 21 daily. [place] ibrutinib 2021-09 Yes 420mg QD Take [address] (Imbruvica) 0-31 mg by [facility] 420 mg Tab 12:20: mouth Medica l 21 daily. [place] tamsulosin 2022-1 Yes [id number] .4mg Take 1 U nivers 0.4 mg 24 0-24 capsule by ity of hr capsule 00:00: mouth in [place] 00 the Medical morning. Branch tamsulosin 2021-1 Yes [id number] .4mg Take 1 U nivers 0.4 mg 24 0-24 capsule by ity of hr capsule 00:00: mouth in [place] 00 the Medical morning. Branch tamsulosin 2021-1 Yes [id number] .4mg Take 1 U nivers 0.4 mg 24 0-24 capsule by ity of hr capsule 00:00: mouth in [place] 00 the Medical morning. Branch tamsulosin 2021-1 Yes [id number] .4mg Take 1 U nivers 0.4 mg 24 0-24 capsule by ity of hr capsule 00:00: mouth in [place] 00 the Medical morning. Branch tamsulosin 2021-1 Yes [id number] .4mg Take 1 U nivers 0.4 mg 24 0-24 capsule by ity of hr capsule 00:00: mouth in [place] 00 the Medical morning. Branch tamsulosin 2021-1 Yes [id number] .4mg Take 1 U nivers 0.4 mg 24 0-24 capsule by ity of hr capsule 00:00: mouth in [place] 00 the Medical morning. Branch tamsulosin 2021-1 Yes [id number] .4mg Take 1 U nivers 0.4 mg 24 0-24 capsule by ity of hr capsule 00:00: mouth in [place] 00 the Medical morning. Branch tamsulosin 2021-1 Yes [id number] .4mg Take 1 U nivers 0.4 mg 24 0-24 capsule by ity of hr capsule 00:00: mouth in [place] 00 the Medical morning. Branch tamsulosin 2021-1 Yes [id number] .4mg Take 1 U nivers 0.4 mg 24 0-24 capsule by ity of hr capsule 00:00: mouth in [place] 00 the Medical morning. Branch tamsulosin 2021-1 Yes [id number] .4mg Take 1 U nivers 0.4 mg 24 0-24 capsule by ity of hr capsule 00:00: mouth in [place] 00 the Medical morning. Branch tamsulosin 2021-1 Yes [id number] .4mg Take 1 U nivers 0.4 mg 24 0-24 capsule by ity of hr capsule 00:00: mouth in [place] 00 the Medical morning. Branch tamsulosin 2021- Yes [id number] .4mg Take 1 U nivers 0.4 mg 24 0-24 capsule by ity of hr capsule 00:00: mouth in [place] 00 the Medical morning. Branch tamsulosin 2021-1 Yes [id number] .4mg Take 1 U nivers 0.4 mg 24 0-24 capsule by ity of hr capsule 00:00: mouth in [place] 00 the Medical morning. Branch tamsulosin 2021-1 Yes [id number] .4mg Take 1 U nivers 0.4 mg 24 0-24 capsule by ity of hr capsule 00:00: mouth in [place] 00 the Medical morning. Branch tamsulosin 2021- Yes [id number] .4mg Take 1 U nivers 0.4 mg 24 0-24 capsule by ity of hr capsule 00:00: mouth in [place] 00 the Medical morning. Branch tamsulosin 2021- Yes [id number] .4mg Take 1 U nivers 0.4 mg 24 0-24 capsule by ity of hr capsule 00:00: mouth in [place] 00 the Medical morning. Branch tamsulosin 2021-09 Yes [id number] .4mg Take 1 U nivers 0.4 mg 24 0-24 capsule by ity of hr capsule 00:00: mouth in [place] 00 the Medical morning. Branch tamsulosin 2021- Yes [id number] .4mg Take 1 U nivers 0.4 mg 24 0-24 capsule by ity of hr capsule 00:00: mouth in [place] 00 the Medical morning. Branch tamsulosin 2021-1 Yes [id number] .4mg Take 1 U nivers 0.4 mg 24 0-24 capsule by ity of hr capsule 00:00: mouth in [place] 00 the Medical morning. Branch tamsulosin 2021-1 Yes [id number] .4mg Take 1 U nivers 0.4 mg 24 0-24 capsule by ity of hr capsule 00:00: mouth in [place] 00 the Medical morning. Branch tamsulosin 2021- 2023- No [id number] .4mg Take 1 Univers 0.4 mg 24 0-24 03-28 capsule by ity of hr capsule 00:00: 00:00 mouth in [place] 00 :00 the Medical morning. Branch ibrutinib 2021-09 Yes 1{tbl} Take 1 Univ ers (IMBRUVICA) 0-23 tablet by ity of 420 mg Tab 14:20: mouth in [place] 29 the Medical morning. Branch ALBUTEROL 2021-09 Yes Inhale as Uni vers INHALE 0-23 needed. ity of 14:20: [place] [address] Medical Branch ibrutinib 2021-09 Yes 1{tbl} Take 1 Univ ers (IMBRUVICA) 0-23 tablet by ity of 420 mg Tab 14:20: mouth in [place] 29 the Medical morning. Branch ALBUTEROL 2021-09 Yes Inhale as Uni vers INHALE 0-23 needed. ity of 14:20: [address] Branch ibrutinib 2021-09 Yes 1{tbl} Take 1 Univ ers (IMBRUVICA) 0-23 tablet by ity of 420 mg Tab 14:20: mouth in [place] 29 the Medical morning. Branch ALBUTEROL 2021-09 Yes Inhale as Uni vers INHALE 0-23 needed. ity of 14:20: [address] Branch ibrutinib 2021-09 Yes 1{tbl} Take 1 Univ ers (IMBRUVICA) 0-23 tablet by ity of 420 mg Tab 14:20: mouth in [place] 29 the Medical morning. Branch ALBUTEROL 2021-09 Yes Inhale as Uni vers INHALE 0-23 needed. ity of 14:20: [address] Branch ibrutinib 2021-09 Yes 1{tbl} Take 1 Univ ers (IMBRUVICA) 0-23 tablet by ity of 420 mg Tab 14:20: mouth in [place] 29 the Medical morning. Branch ALBUTEROL 2021-09 Yes Inhale as Uni vers INHALE 0-23 needed. ity of 14:20: [address] Branch cyclobenzap 2021-09 Yes [id number] 5mg Take 1 Univers rine 5 mg 0-23 tablet by ity o f tablet 00:00: mouth in [place] the Medical morning Branch and 1 tablet at noon and 1 tablet in the evening. cyclobenzap 2021-09 Yes [id number] 5mg Take 1 Univers rine 5 mg 0-23 tablet by ity o f tablet 00:00: mouth in [place] the Medical morning Branch and 1 tablet at noon and 1 tablet in the evening. cyclobenzap 2021-09 Yes [id number] 5mg Take 1 Univers rine 5 mg 0-23 tablet by ity o f tablet 00:00: mouth in [place] 00 the Medical morning Branch and 1 tablet at noon and 1 tablet in the evening. cyclobenzap 2021-09 Yes [id number] 5mg Take 1 Univers rine 5 mg 0-23 tablet by ity o f tablet 00:00: mouth in [place] 00 the Medical morning Branch and 1 tablet at noon and 1 tablet in the evening. cyclobenzap 2021-09 Yes [id number] 5mg Take 1 Univers rine 5 mg 0-23 tablet by ity o f tablet 00:00: mouth in [place] 00 the Medical morning Branch and 1 tablet at noon and 1 tablet in the evening. cyclobenzap 2021-09 Yes [id number] 5mg Take 1 Univers rine 5 mg 0-23 tablet by ity o f tablet 00:00: mouth in [place] 00 the Medical morning Branch and 1 tablet at noon and 1 tablet in the evening. cyclobenzap 2021-09 Yes [id number] 5mg Take 1 Univers rine 5 mg 0-23 tablet by ity o f tablet 00:00: mouth in [place] 00 the Medical morning Branch and 1 tablet at noon and 1 tablet in the evening. cyclobenzap 2021-09 Yes [id number] 5mg Take 1 Univers rine 5 mg 0-23 tablet by ity o f tablet 00:00: mouth in [place] 00 the Medical morning Branch and 1 tablet at noon and 1 tablet in the evening. cyclobenzap 2021-09 Yes [id number] 5mg Take 1 Univers rine 5 mg 0-23 tablet by ity o f tablet 00:00: mouth in [place] 00 the Medical morning Branch and 1 tablet at noon and 1 tablet in the evening. cyclobenzap 2021-09 Yes [id number] 5mg Take 1 Univers rine 5 mg 0-23 tablet by ity o f tablet 00:00: mouth in [place] 00 the Medical morning Branch and 1 tablet at noon and 1 tablet in the evening. cyclobenzap 2021-09 Yes [id number] 5mg Take 1 Univers rine 5 mg 0-23 tablet by ity o f tablet 00:00: mouth in [place] 00 the Medical morning Branch and 1 tablet at noon and 1 tablet in the evening. cyclobenzap 2021-09 Yes [id number] 5mg Take 1 Univers rine 5 mg 0-23 tablet by ity o f tablet 00:00: mouth in [place] 00 the Medical morning Branch and 1 tablet at noon and 1 tablet in the evening. cyclobenzap 2021-09 Yes [id number] 5mg Take 1 Univers rine 5 mg 0-23 tablet by ity o f tablet 00:00: mouth in [place] 00 the Medical morning Branch and 1 tablet at noon and 1 tablet in the evening. cyclobenzap 2021-09 Yes [id number] 5mg Take 1 Univers rine 5 mg 0-23 tablet by ity o f tablet 00:00: mouth in [place] 00 the Medical morning Branch and 1 tablet at noon and 1 tablet in the evening. cyclobenzap 2021-09 Yes [id number] 5mg Take 1 Univers rine 5 mg 0-23 tablet by ity o f tablet 00:00: mouth in [place] 00 the Medical morning Branch and 1 tablet at noon and 1 tablet in the evening. cyclobenzap 2021-09 Yes [id number] 5mg Take 1 Univers rine 5 mg 0-23 tablet by ity o f tablet 00:00: mouth in [place] 00 the Medical morning Branch and 1 tablet at noon and 1 tablet in the evening. cyclobenzap 2021-09 Yes [id number] 5mg Take 1 Univers rine 5 mg 0-23 tablet by ity o f tablet 00:00: mouth in [place] 00 the Medical morning Branch and 1 tablet at noon and 1 tablet in the evening. cyclobenzap 2021-09 Yes [id number] 5mg Take 1 Univers rine 5 mg 0-23 tablet by ity o f tablet 00:00: mouth in [place] 00 the Medical morning Branch and 1 tablet at noon and 1 tablet in the evening. cyclobenzap 2021-09 Yes [id number] 5mg Take 1 Univers rine 5 mg 0-23 tablet by ity o f tablet 00:00: mouth in [place] 00 the Medical morning Branch and 1 tablet at noon and 1 tablet in the evening. cyclobenzap 2021-09 Yes [id number] 5mg Take 1 Univers rine 5 mg 0-23 tablet by ity o f tablet 00:00: mouth in [place] 00 the Medical morning Branch and 1 tablet at noon and 1 tablet in the evening. cyclobenzap 2021-09 No [id number] 5mg Take 1 Univers rine 5 mg 0-23 03-28 tablet by ity of tablet 00:00: 00:00 mouth in [place] 00 :00 the Medical morning Branch and 1 tablet at noon and 1 tablet in the evening. acetaminoph 2021-09 No [id number] 1{tbl} Take 1 U nivers en-codeine 0-23 10-30 tablet by ity of 300-30 mg 00:00: 04:59 mouth [place] tablet 00 :00 every 4 Medical (four) Branch hours as needed for Pain (scale 4-6) for up to 6 days. Indication s: acute pain acetaminoph 2021-09 No [id number] 1{tbl} Take 1 U nivers en-codeine 0-23 10-30 tablet by ity of 300-30 mg 00:00: 04:59 mouth [place] tablet 00 :00 every 4 Medical (four) Branch hours as needed for Pain (scale 4-6) for up to 6 days. Indication s: acute pain acetaminoph 2021-09 No [id number] 1{tbl} Take 1 U nivers en-codeine 0-23 10-30 tablet by ity of 300-30 mg 00:00: 04:59 mouth [place] tablet 00 :00 every 4 Medical (four) Branch hours as needed for Pain (scale 4-6) for up to 6 days. Indication s: acute pain acetaminoph 2021-09 No [id number] 1{tbl} Take 1 U nivers en-codeine 0-23 10-30 tablet by ity of 300-30 mg 00:00: 04:59 mouth [place] tablet 00 :00 every 4 Medical (four) Branch hours as needed for Pain (scale 4-6) for up to 6 days. Indication s: acute pain acetaminoph 2021-09 No [id number] 1{tbl} Take 1 U nivers en-codeine 0-23 10-30 tablet by ity of 300-30 mg 00:00: 04:59 mouth [place] tablet 00 :00 every 4 Medical (four) Branch hours as needed for Pain (scale 4-6) for up to 6 days. Indication s: acute pain acetaminoph 2021-09 No [id number] 1{tbl} Take 1 U nivers en-codeine 0-23 10-30 tablet by ity of 300-30 mg 00:00: 04:59 mouth [place] tablet 00 :00 every 4 Medical (four) Branch hours as needed for Pain (scale 4-6) for up to 6 days. Indication s: acute pain acetaminoph 2021-09 No [id number] 1{tbl} Take 1 U nivers en-codeine 0-23 10-25 tablet by ity of 300-30 mg 00:00: 04:59 mouth [place] tablet 00 :00 every 4 Medical (four) Branch hours as needed for Pain (scale 7-10) for up to 1 day. Indication s: acute pain cyclobenzap 2021-09 No [id number] 5mg Take 1 Univers rine 5 mg 0-23 10-25 tablet by ity of tablet 00:00: 04:59 mouth in [place] 00 :00 the Medical morning Branch and 1 tablet at noon and 1 tablet in the evening. Do all this for 1 day. acetaminoph 2021-09 No [id number] 1{tbl} Take 1 U nivers en-codeine 0-23 10-23 tablet by ity of 300-30 mg 00:00: 00:00 mouth [place] tablet 00 :00 every 4 Medical (four) Branch hours as needed for Pain (scale 4-6) for up to 7 days. Indication s: acute pain iopamidol 2021-09 No [id number] 65mL 65 mL, U nivers (ISOVUE 0-26 06- Intravenou ity o f 370-500 mL) 16:15: 16:15 s, ONCE, 1 [place] injection 00 :00 dose, On Medica l 65 mL Sat Branch 06/26/22 at 1115, Routine lidocaine 2021-09- No 1{patch 1 Patch, Univers (LIDODERM) 06-26 } Topical, ity of 5 % (700 11:30: 23:13 Administer [place] mg/patch) 00 :00 over 12 Medical patch 1 Hours, Branch Patch ONCE, 1 dose, On 06/26/22 at 0630, Routine ondansetron 2021-09 Yes 4mg 4 mg, Unive rs (ZOFRAN-ODT 0-22 Oral, ity of ) 10:45: Q6HPRN, [place] disintegrat 00 Starting Medi daniel ing tablet on Tue Branch 4 mg 06/26/22 at 0545, Until [...] [place] mg 33 Starting Medical on Tue Branch 06/25/22 at 2156, Until Discontinu ed, Routine, Pain (scale 7-10) iopamidol 2021-09- No [id number] 200mL 200 mL, Univers (ISOVUE 006-25 Enteral, ity of 300-100 mL) 18:02: 18:35 TITRATE - [place] injection 00 :00 FOR Medical 200 mL PROCEDURE Branch USE, 1 dose, Starting on Tue06/25/22 at 1302, Until Tue06/25/22 at 1335, Routine, Surgery/Pr ocedure lidocaine 2021-09- No PRN, Univers 1% (PF) 06-25 Starting ity of (XYLOCAINE) 15:18: 15:18 on Fri [place] injection 20 :20 06/25/22 Medica [...] injection 00 :09 Starting Medica l on Tue Branch 06/25/22 at 0945, Until Tue06/25/22 at 1315, Routine, [...] vers INHALE 0-20 needed. ity of 15:04: [place] 41 Medical Branch ibrutinib 2021-09 Yes 1{tbl} Take 1 Univ ers (IMBRUVICA) 0-20 tablet by ity of 420 mg Tab 15:04: mouth in [place] 41 the Medical morning. Branch ALBUTEROL 2021-09 Yes Inhale as Uni vers INHALE 0-20 needed. ity of 15:04: [address] ibrutinib 2021-09 Yes 1{tbl} Take 1 Univ ers (IMBRUVICA) 0-20 tablet by ity of 420 mg Tab 15:04: mouth in [place] 41 the Medical morning. Branch ALBUTEROL 2021-09 Yes Inhale as Uni vers INHALE 0-20 needed. ity of 15:04: [address] Indomethaci 2021-09 PRN, Unive rs n (INDOCIN) 0-19 06-23 Starting ity of suppository 15:07: 18:22 on Tue [place] 00 :35 06/23/22 Medical at 1007, Branch Until Tue06/23/22 at 1322, Routine, Intra-op ibrutinib 2021-09 Yes 1{tbl} Take 1 Univ ers (IMBRUVICA) 0-19 tablet by ity of 420 mg Tab 13:22: mouth in [place] 35 the Medical morning. [place] ALBUTEROL 2021-09 Yes Inhale as Uni vers INHALE 0-19 needed. ity of 13:22: [address] tamsulosin 2021-09 Yes .4mg 0.4 mg, Univ ers (FLOMAX) 0-18 Oral, ity of capsule 0.4 22:45: DAILY, [place] 00 First dose Medical on [facility] 06/22/22 at 1745, Until Discontinu ed, Routine tamsulosin 2021-09 Yes .4mg 0.4 mg, Univ ers (FLOMAX) 0-18 Oral, ity of capsule 0.4 22:45: DAILY, [place] mg 00 First dose Medical on [facility] 06/22/22 at 1745, Until Discontinu ed, Routine aquaphilic 2021-09 Yes Topical, Uni vers ointment 0-18 PRN, ity of (AQUAPHOR) 22:43: Starting [place] ointment 14 on [facility] 06/22/22 Branch at 1743, Until Discontinu ed, Routine, put under pad for minor wound care aquaphilic 2021-09 Yes Topical, Uni vers ointment 0-18 PRN, ity of (AQUAPHOR) 22:43: Starting [place] ointment 14 on [facility] Medical 06/22/22 Branch at 1743, Until Discontinu ed, Routine, put under pad for minor wound care tc 2021-09- No [id number] 4.9mCi 4.9 Univer s 99m-mebrofe 0-17 10-17 millicurie [facility] [place] 20:15: 20:10 , [place] injection 00 :00 Intravenou Medi daniel 4.9 s, ONCE, 1 Branch millicurie dose, On 06/21/22 at 1515, Routine ondansetron 2021-09 Yes 4mg 4 mg, Unive rs (ZOFRAN-ODT 0-17 Oral, ity of ) 02:00: Q8HPRN, [place] disintegrat 09 Starting Medi daniel ing tablet on [facility] 4 mg 06/20/22 at 2100, Until Discontinu ed, Routine, Nausea and Vomiting (N/V) ondansetron 2021-09- No 4mg 4 mg, Univ ers (ZOFRAN-ODT 0-17 - Oral, ity of ) 02:00: 10:31 Q8HPRN, [place] disintegrat 09 :55 Starting Medi daniel ing tablet on [facility] 4 mg 06/20/22 at 2100, Until 06/26/22 at 0531, Routine, Nausea and Vomiting (N/V) ibrutinib 2021-09 Yes 420mg 420 mg, Univ ers (IMBRUVICA) 0-15 Oral, ity of Tab 420 mg 14:00: DAILY, [place] [address] First dose Medical on [facility] Branch 06/19/22 at 0900, Until Discontinu ed, Routine ibrutinib 2021-09 Yes 420mg 420 mg, Univ ers (IMBRUVICA) 0-15 Oral, ity of Tab 420 mg 14:00: DAILY, [place] 00 First dose Medical on [facility] Branch 06/19/22 at 0900, Until Discontinu ed, Routine iohexol 2021-09- No [id number] 80mL 80 mL, Uni vers (OMNIPAQUE 0-15 10-15 Intravenou it y of 350 07:45: 07:42 s, ONCE, 1 [place] BULK-100 00 :00 dose, On Medical mL) [facility] injection 06/19/22 80 mL at 0245, Routine enoxaparin 2021-09 Yes 40mg 40 mg, Unive rs (LOVENOX) 0-14 Subcutaneo ity of injection 22:00: [place], DAILY, [place] 40 mg 00 First dose Medical on Tue [place] 06/18/22 at 1700, Until Discontinu ed, Routine enoxaparin 2021-09 Yes 40mg 40 mg, Unive rs (LOVENOX) 0-14 Subcutaneo ity of injection 22:00: [place], DAILY, [place] 40 mg 00 First dose Medical on Tue [place] 06/18/22 at 1700, Until Discontinu ed, Routine ondansetron 2021-09 4mg 4 mg, Univ ers (ZOFRAN) 0-14 10-17 Oral, ity of tablet 4 mg 11:45: 02:00 Q6HPRN, [place] 44 :25 Starting Medical on Tue [place] 06/18/22 at 0645, Until 06/20/22 at 2100, Routine, Nausea and Vomiting (N/V) acetaminoph 2021-09 Yes 1{tbl} 1 tablet, Univers en-codeine 0-14 Oral, ity of (TYLENOL 11:45: Q4HPRN, [place] #3) 300-30 21 Starting Medic al mg tablet 1 on Tue [place] tablet 06/18/22 at 0645, Until Discontinu ed, Routine, Pain (scale 4-6) acetaminoph 2021-09 Yes 1{tbl} 1 tablet, Univers en-codeine 0-14 Oral, ity of (TYLENOL 11:45: Q4HPRN, [place] #3) 300-30 21 Starting Medic al mg tablet 1 on Tue [place] tablet 06/18/22 at 0645, Until Discontinu ed, Routine, Pain (scale 4-6) morpHINE (2 2021-09 Yes 2mg 2 mg, Slow Univers mg/mL) 0-14 IV Push, ity of injection 2 11:45: Q4HPRN, [place] mg 14 Starting Medical on Tue Branch 06/18/22 at 0645, Until Discontinu ed, Routine, Pain (scale 7-10) morpHINE (2 2021-09- No 2mg 2 mg, Slow Univers mg/mL) 006-26 IV Push, ity of injection 2 11:45: 02:56 Q4HPRN, [place] mg 14 :44 Starting Medical on Tue06/18/22 at 0645, Until Tue06/25/22 at 2156, Routine, Pain (scale 7-10) metroNIDAZO 2021-09- No 500mg 500 mg, U nivers LE (FLAGYL) 0-14 - Oral, Q8H, i ty of tablet 500 11:00: 09:58 15 doses, [place] mg 00 :00 First dose Medical on Tue06/18/22 at 0600, Last dose on Tue06/22/22 at 2200, Routine
Reason for Anti-Infec tive: Empiric Therapy for Suspected Infection< br>Empiric Therapy Site: Abdominal< br>Duratio n of therapy: 5 days gadobenate 2021-09- No [id number] .2mL/kg 10.06 mL Univers dimeglumine 006-18 (0.2 [...] 0-14 Oral, ity of (TYLENOL) 05:01: Q6HPRN, [place] tablet 650 49 Starting Medic al mg on Tue Branch 06/18/22 at 0001, Until Discontinu ed, Routine, Pain (scale 1-3) acetaminoph 2021-09 Yes 650mg 650 mg, Un brayan en 0-14 Oral, ity of (TYLENOL) 05:01: Q6HPRN, [place] tablet 650 49 Starting Medic al mg on Tue Branch 06/18/22 at 0001, Until Discontinu ed, Routine, Pain (scale 1-3) albuterol 2021-09 Yes 1{puff} 1 Puff, Un [place] (VENTOLIN) 0-14 Inhalation ity of inhaler 1 04:59: , Q4HPRN, [place] Puff 21 Starting Medical on [facility] 06/17/22 at 2359, Until Discontinu ed, Wheezing, Shortness of Breath, Bronchospa sm, Chest tightness albuterol 2021-09 Yes 1{puff} 1 Puff, Un [place] (VENTOLIN) 0-14 Inhalation ity of inhaler 1 04:59: , Q4HPRN, [place] Puff 21 Starting Medical on [facility] 06/17/22 at 2359, Until Discontinu ed, Wheezing, Shortness of Breath, Bronchospa sm, Chest tightness iopamidol 2021-09- No [id number] 70mL 70 mL, Univers (ISOVUE 0-13 -13 Intravenou ity o f 370-500 mL) 23:15: 22:16 s, ONCE, 1 [place] injection 00 :00 dose, On Medica l 70 mL [facility] Branch 06/17/22 at 1815, Routine ondansetron 2021-09- No 4mg 4 mg, Slow Univers (ZOFRAN 0-17 06- IV Push, ity of (PF)) 20:00: 21:15 ONCE, 1 [place] injection 4 00 :00 dose, On Medi daniel mg [facility] Branch 06/17/22 at 1500, STAT morpHINE (4 2021-09- No 4mg 4 mg, Slow Univers mg/mL) 0-17 06- IV Push, ity of injection 4 20:00: 21:14 ONCE, 1 [place] mg 00 :00 dose, On Medical [place] Branch 06/17/22 at 1500, V[place] ibrutinib Yes 420mg [...] Nausea for up to 7 days. ondansetron 2021-0 2021- No 4mg Take [address] [facility] (ZOFRAN-ODT 05-19 tablet (4 Brandi kes ) 4 MG 00:00: 23:59 mg total) Medic al disintegrat 00 :00 by mouth Cent er ing tablet every 8 (eight) hours as needed for Nausea for up to 7 days. ondansetron 2021-0 2021- No 4mg Take [address] [facility] (ZOFRAN-ODT 05-19 tablet (4 Brandi kes ) 4 MG 00:00: 23:59 mg total) Medic al disintegrat 00 :00 by mouth Cent er ing tablet every 8 (eight) hours as needed for Nausea for up to 7 days. ondansetron 2021-0 2021- No 4mg Take [address] [facility] (ZOFRAN-ODT 05-19 tablet (4 Brandi kes ) 4 MG 00:00: 23:59 mg total) Medic al disintegrat 00 :00 by mouth Cent er ing tablet every 8 (eight) hours as needed for Nausea for up to 7 days. ondansetron 2021-0 2021- No 4mg Take [address] [facility] (ZOFRAN-ODT 05-19 tablet (4 Brandi kes ) 4 MG 00:00: 23:59 mg total) Medic al disintegrat 00 :00 by mouth Cent er ing tablet every 8 (eight) hours as needed for Nausea for up to 7 days. amoxicillin 2021-2021- No 1{tbl} Q.5D Take 1 C [facility] -clavulanat 05-19 tablet by Brandi kes e 00:00: 23:59 mouth 2 Medical (AUGMENTIN) 00 :00 (two) Center 875-125 mg times per tablet daily for 5 days. amoxicillin 2022-0 2022- No 1{tbl} Q.5D Take [address] -clavulanat -05-24 tablet by Brandi kes e 00:00: 23:59 mouth 2 Medical (AUGMENTIN) 00 :00 (two) Center 875-125 mg times per tablet daily for 5 days. amoxicillin 2022-0 2022- No 1{tbl} Q.5D Take [address] -clavulanat 05-19 tablet by Brandi kes e 00:00: 23:59 mouth 2 Medical (AUGMENTIN) 00 :00 (two) Center 875-125 mg times per tablet daily for 5 days. amoxicillin 2-0 2022- No 1{tbl} Q.5D Take [address] -clavulanat 05-19 tablet by Brandi [email or web address] e 00:00: 23:59 mouth 2 Medical (AUGMENTIN) 00 :00 (two) Center 875-125 mg times per tablet daily for 5 days. amoxicillin 2-0 2022- No 1{tbl} Q.5D Take [address] -clavulanat 05-19 tablet by Brandi [email or web address] e 00:00: 23:59 mouth 2 Medical (AUGMENTIN) 00 :00 (two) Center 875-125 mg times per tablet daily for 5 days. tamsulosin 2022-0 2022- No .8mg QD Take [address] [facility] (FLOMAX) 05-11- capsules [facility] mg Cap 00:00: 23:59 (0.8 mg Med ical 24 hr 00 :00 total) by Center capsule mouth daily for 90 days. tamsulosin 2022-0 2022- No .8mg QD Take [address] [facility] (FLOMAX) 05-11- capsules [facility]4 mg Cap 00:00: 23:59 (0.8 mg Med ical 24 hr 00 :00 total) by Center capsule mouth daily for 90 days. tamsulosin 2022-0 2022- No .8mg QD Take [address] [facility] (FLOMAX) 05-11-05 capsules [facility] 0.4 mg Cap 00:00: 23:59 (0.8 mg Med ical 24 hr 00 :00 total) by Center capsule mouth daily for 90 days. tamsulosin 2022-0 2022- No .8mg QD Take [address] [facility] (FLOMAX) 05-11- capsules [facility] 0.4 mg Cap 00:00: 23:59 (0.8 mg Med ical 24 hr 00 :00 total) by Center capsule mouth daily for 90 days. tamsulosin 2022-0 2022- No .8mg QD Take [address] [facility] (FLOMAX) 05-11- capsules [facility] 0.4 mg Cap 00:00: 23:59 (0.8 mg Med ical 24 hr 00 :00 total) by Center capsule mouth daily for 90 days. tamsulosin 2022-0 2022- No .8mg QD Take [address] [facility] (FLOMAX) 05-11 capsules [facility] 0.4 mg Cap 00:00: 23:59 (0.8 mg Med ical 24 hr 00 :00 total) by Center capsule mouth daily for 90 days. HYDROcodone 2021-2021- No 1{tbl} Take [address] -acetaminop 05-11 tablet by Brandi gómez (NORCO 00:00: 00:00 mouth Medic al 5-325) 00 :00 every 6 Center 5-325 mg (six) per tablet hours as needed for up to 7 days. Max Daily Amount: 4 tablets ondansetron 2021-2021- No 4mg Take [address] [facility] (ZOFRAN-ODT 05-11 tablet (4 Brandi kes ) 4 MG 00:00: 00:00 mg total) Medic al disintegrat 00 :00 by mouth Cent er ing tablet every 8 (eight) hours as needed for Nausea for up to 7 days. HYDROcodone 2021-0 2021- No 1{tbl} Take [address] -acetaminop 05-11 tablet by Brandi gómez (NORCO 00:00: 00:00 mouth Medic al 5-325) 00 :00 every 6 Center 5-325 mg (six) per tablet hours as needed for up to 7 days. Max Daily Amount: 4 tablets ondansetron 2021-0 2021- No 4mg Take [address] [facility] (ZOFRAN-ODT 9-06 09-14 tablet (4 Brandi kes ) 4 MG 00:00: 00:00 mg total) Medic al disintegrat 00 :00 by mouth Cent er ing tablet every 8 (eight) hours as needed for Nausea for up to 7 days. HYDROcodone 2021-0 2021- No 1{tbl} Take [address] -acetaminop 05-11 tablet by Brandi gómez (NORCO 00:00: 00:00 mouth Medic al 5-325) 00 :00 every 6 Center 5-325 mg (six) per tablet hours as needed for up to 7 days. Max Daily Amount: 4 tablets ondansetron 2021-0 2021- No 4mg Take [address] [facility] (ZOFRAN-ODT 05-11 tablet (4 Brandi kes ) 4 MG 00:00: 00:00 mg total) Medic al disintegrat 00 :00 by mouth Cent er ing tablet every 8 (eight) hours as needed for Nausea for up to 7 days. HYDROcodone 2021-0 2021- No 1{tbl} Take [address] -acetaminop 05-11 tablet by Brandi gómez (NORCO 00:00: 00:00 mouth Medic al 5-325) 00 :00 every 6 Center 5-325 mg (six) per tablet hours as needed for up to 7 days. Max Daily Amount: 4 tablets ondansetron 2021-0 2021- No 4mg Take [address] [facility] (ZOFRAN-ODT 05-11 tablet (4 Brandi kes ) 4 MG 00:00: 00:00 mg total) Medic al disintegrat 00 :00 by mouth Cent er ing tablet every 8 (eight) hours as needed for Nausea for up to 7 days. HYDROcodone 2021-0 2021- No 1{tbl} Take [address] -acetaminop 05-11 tablet by Brandi gómez (NORCO 00:00: 00:00 mouth Medic al 5-325) 00 :00 every 6 Center 5-325 mg (six) per tablet hours as needed for up to 7 days. Max Daily Amount: 4 tablets ondansetron 2-0 2021- No 4mg Take [address] [facility] [...] Common 4-11 Kamara Spirit 00:00: - 00 [facility] Fluticasone Fluticasone Yes [place] 1 spray in Common Propionate Propionate Kamara each Spi rit nostril [facility] ProAir ProAir Yes [place] 2 puffs as Co mmon RespiClick RespiClick Kamara needed S pirit [facility] Vitamin Vitamin Yes [place] not Common B-12 B-12 Kamara defined [facility] Centrum Centrum Yes [place] not Common Adults Adults Kamara defined [facility] Allopurinol Allopurinol Yes [place] 1 tablet Common Kamara [facility] Vital Signs Vital Name Observation Time Observation Value Comments Source Systolic blood 2022-11-30 17:24:00 160 mm[Hg] Univer sity [facility] Diastolic blood 2022-11-30 17:24:00 90 mm[Hg] Unive [facility] Heart rate 2022-11-30 17:24:00 70 /min [facility] Body temperature 2022-11-30 17:24:00 36.22 [facility] Respiratory rate 2022-11-30 17:24:00 16 /min [facility] Oxygen saturation in 2022-11-30 17:24:00 96 /min [facility] Arterial blood by [facility] Pulse oximetry Branch Body height 2022-11-30 01:00:00 157.5 cm [facility] Body weight 2022-11-30 01:00:00 56.7 kg [facility] BMI 2022-11-30 01:00:00 22.86 kg/m2 [facility] Systolic blood 2022-08-07 13:08:00 128 mm[Hg] Univer sity of [facility] Diastolic blood 2022-08-07 13:08:00 78 mm[Hg] Unive rsity of pressure [facility] Heart rate 2022-08-07 13:08:00 78 /min [facility] Body temperature 2022-08-07 13:08:00 37.06 [facility] Respiratory rate 2022-08-07 13:08:00 16 /min [facility] Oxygen saturation in 2022-08-07 13:08:00 95 /min [facility] Arterial blood by [facility] Pulse oximetry Branch Body height 2022-07-28 15:52:00 157.5 cm [facility] Body weight 2022-07-28 15:52:00 48.535 kg [facility] BMI 2022-07-28 15:52:00 19.57 kg/m2 [facility] Systolic blood 2022-07-12 17:06:00 120 mm[Hg] Univer sity [facility] Diastolic blood 2022-07-12 17:06:00 77 mm[Hg] Unive rsity [facility] Heart rate 2022-07-12 17:06:00 71 /min [facility] Body temperature 2022-07-12 17:06:00 36.61 [facility] Respiratory rate 2022-07-12 17:06:00 18 /min [facility] Body height 2022-07-12 17:06:00 157.5 cm [facility] Body weight 2022-07-12 17:06:00 52.98 kg [facility] BMI 2022-07-12 17:06:00 21.36 kg/m2 [facility] Systolic blood 2022-07-10 03:00:00 123 mm[Hg] Univer sity [facility] Diastolic blood 2022-07-10 03:00:00 80 mm[Hg] Unive rsity of [facility] Heart rate 2022-07-10 03:00:00 81 /min [facility] Respiratory rate 2022-07-10 03:00:00 16 /min [facility] Oxygen saturation in 2022-07-10 03:00:00 95 /min [facility] blood by [place] [facility] Pulse oximetry Branch Body temperature 2022-07-09 21:24:00 36.56 [facility] Body weight 2022-07-09 21:24:00 53.071 kg [facility] BMI 2022-07-09 21:24:00 21.40 kg/m2 [facility] Systolic blood 2022-06-27 13:08:00 121 mm[Hg] Univer sity [facility] Diastolic blood 2022-06-27 13:08:00 78 mm[Hg] Unive rsity [facility] Heart rate 2022-06-27 13:08:00 74 /min [facility] Body temperature 2022-06-27 13:08:00 36.44 [facility] Respiratory rate 2022-06-27 13:08:00 18 /min [facility] Oxygen saturation in 2022-06-27 13:08:00 94 /min [facility]ial blood by [place] [facility] Pulse oximetry Branch Body weight 2022-06-24 05:00:00 53.071 kg [facility] BMI 2022-06-24 05:00:00 21.40 kg/m2 [facility] Body height 2022-06-18 10:38:00 157.5 cm [facility] Systolic blood 2022-06-23 09:53:00 128 mm[Hg] Univer sity [facility] Diastolic blood 2022-06-23 09:53:00 80 mm[Hg] Unive rsity of [facility] Heart rate 2022-06-23 09:53:00 64 /min [facility] [place] [facility] Body temperature 2022-06-23 09:53:00 36.44 [facility] Respiratory rate 2022-06-23 09:53:00 18 /min [facility] Oxygen saturation in 2022-06-23 09:53:00 98 /min [facility] Arterial blood by [facility] Pulse oximetry Branch Body weight 2022-06-23 05:00:00 51.982 kg [facility] BMI 2022-06-23 05:00:00 21.40 kg/m2 [facility] Body height 2022-06-18 10:38:00 157.5 cm [facility] WEIGHT 2022-05-14 23:49:00 57.788 kg WEIGHT 2022-05-14 23:49:00 57.788 kg Systolic blood 2022-08-07 13:08:00 128 mm[Hg] Univer sity [facility] Diastolic blood 2022-08-07 13:08:00 78 mm[Hg] Unive rsity of [facility] Heart rate 2022-08-07 13:08:00 78 /min [facility] Body temperature 2022-08-07 13:08:00 37.06 [facility] Respiratory rate 2022-08-07 13:08:00 16 /min [facility] Oxygen saturation in 2022-08-07 13:08:00 95 /min [facility] Arterial blood by [facility] Pulse oximetry Branch Systolic blood 2022-07-30 17:53:00 111 mm[Hg] Univer sity [facility] Diastolic blood 2022-07-30 17:53:00 71 mm[Hg] Unive rsity of [facility] Heart rate 2022-07-30 17:53:00 94 /min [facility] Oxygen saturation in 2022-07-30 17:53:00 100 /min [facility] Arterial blood by [facility] Pulse oximetry Branch Body temperature 2022-07-30 17:52:00 36.28 [facility] Respiratory rate 2022-07-30 17:52:00 18 /min [facility] [place] [facility] Systolic blood 2022-07-29 13:46:00 128 mm[Hg] Univer sity [facility] Diastolic blood 2022-07-29 13:46:00 78 mm[Hg] Unive rsity [facility] Heart rate 2022-07-29 13:46:00 65 /min [facility] Body temperature 2022-07-29 13:46:00 36.22 [facility] Respiratory rate 2022-07-29 13:46:00 18 /min [facility] Oxygen saturation in 2022-07-29 13:46:00 96 /min [facility] Arterial blood by [place] [employer] Pulse oximetry Branch Body height 2022-07-28 15:52:00 157.5 cm [facility] Body weight 2022-07-28 15:52:00 48.535 kg [facility] BMI 2022-07-28 15:52:00 19.57 kg/m2 [facility] Systolic blood 2022-06-27 13:08:00 121 mm[Hg] Univer sity [facility] Diastolic blood 2022-06-27 13:08:00 78 mm[Hg] Unive rsity [facility] Heart rate 2022-06-27 13:08:00 74 /min [facility] [place] [facility] Body temperature 2022-06-27 13:08:00 36.44 [facility] Respiratory rate 2022-06-27 13:08:00 18 /min [facility] Oxygen saturation in 2022-06-27 13:08:00 94 /min [facility] blood by [place] [facility] Pulse oximetry Branch Systolic blood 2022-06-26 16:21:00 114 mm[Hg] Univer sity [facility] Diastolic blood 2022-06-26 16:21:00 70 mm[Hg] Unive rsity [facility] Heart rate 2022-06-26 16:21:00 88 /min [facility] Body temperature 2022-06-26 16:21:00 36.22 [facility] [place] [facility] Respiratory rate 2022-06-26 16:21:00 18 /min [facility] Oxygen saturation in 2022-06-26 16:21:00 93 /min University Arterial blood by [facility] Pulse oximetry Branch Body weight 2022-06-24 05:00:00 53.071 kg [facility] BMI 2022-06-24 05:00:00 21.40 kg/m2 [facility] Body height 2022-06-18 10:38:00 157.5 cm [facility] Systolic blood 2022-05-19 11:33:00 133 mm[Hg] [facility] Diastolic blood 2022-05-19 11:33:00 74 mm[Hg] [facility] Heart rate 2022-05-19 11:33:00 80 /min [facility] Body temperature 2022-05-19 11:33:00 36.17 [facility] Respiratory rate 2022-05-19 11:33:00 18 /min [facility] Oxygen saturation in 2022-05-19 11:33:00 97 /min [facility] Arterial blood by Medical Ce nter Pulse oximetry Body weight 2022-05-14 23:49:00 57.788 kg [facility] BMI 2022-05-14 23:49:00 23.30 kg/m2 [facility] Systolic blood 2022-05-11 15:14:00 132 mm[Hg] [facility] Diastolic blood 2022-05-11 15:14:00 84 mm[Hg] [facility] Heart rate 2022-05-11 15:14:00 89 /min [facility] Body temperature 2022-05-11 15:14:00 37.11 [facility] Respiratory rate 2022-05-11 15:14:00 18 /min [facility] Oxygen saturation in 2022-05-11 15:14:00 94 /min [facility] Arterial blood by Medical Ce nter Pulse oximetry Procedures Procedure Date / Time Performing Source Performed Clinician KAVYA 2022-11-30 Daryl Lambert [facility] 09:43:00 [facility] MAGNESIUM 2022-11-30 Fausto Lueders University of 09:43:00 [facility] HEPATIC FUNCTION PANEL (70331) 2022-11-30 Fausto Lueders U niversity of (ALB,T.PRO,BILI 09:43:00 [facility],BU/BC,ALT,AST,ALK PHOS) Branch BASIC METABOLIC PANEL (NA, K, 2022-11-30 Fausto Lueders Un iversity of CL, CO2, GLUCOSE, BUN, 09:43:00 [facility] ical CREATININE, CA) Branch CBC WITH DIFF 2022-11-30 Fausto Lueders University of 09:43:[address] [facility] [address] ABDOMEN PELVIS W CONTRAST 2022-11-30 Fausto Lueders Uni versity of 01:05:00 [facility] COMP. METABOLIC PANEL ([id number]) 2022-11-29 Deniz Cervantes U niversity of 22:03:00 [facility] CBC WITH DIFF 2022-11-29 Deniz Cervantes [place] of 22:03:00 [facility] CONSENT/REFUSAL FOR DIAGNOSIS 2022-11-29 Doctor Unassigned, [place] of AND TREATMENT 18:02:35 [place] [facility] AUTHORIZATION FOR RELEASE OF PHI 2022-10-22 Doctor Unassign ed, [facility] 06:01:00 [place] [facility] EMERGENCY DEPARTMENT DOCUMENTS 2022-09-25 Doctor Unayara , [facility] 06:01:00 [place] [facility] EXTERNAL PROVIDER RECORDS 2022-08-17 Doctor Unassigned, Uni versity of 06:01:00 [place] [facility] MAGNESIUM 2022-08-07 [place], [facility] of 11:15:00 [facility] BASIC METABOLIC PANEL (NA, K, 2022-08-07 [place], [place] Un iversity of CL, CO2, GLUCOSE, BUN, 11:15:00 [facility] ical CREATININE, [place]) Branch CBC WITH DIFF 2022-08-07 [place], [facility] 11:15:00 [facility] BASIC METABOLIC PANEL (NA, K, 2022-08-07 [place], [place] Un iversity of CL, CO2, GLUCOSE, BUN, 11:15:00 [facility] ical CREATININE, [place]) Branch MAGNESIUM 2022-08-07 [place], [facility] 11:15:00 [facility] CBC WITH DIFF 2022-08-07 [place], [facility] of 11:15:00 [facility] MAGNESIUM 2022-08-06 [place], [facility] of 10:09:00 [facility] BASIC METABOLIC PANEL (NA, K, 2022-08-06 [place], [place] Un iversity of CL, CO2, GLUCOSE, BUN, 10:09:00 [place] [facility] CREATININE, [place]) Branch CBC WITH DIFF 2022-08-06 [place], [facility] of 10:09:00 [facility] BASIC METABOLIC PANEL (NA, K, 2022-08-06 [place], [place] Un iversity of CL, CO2, GLUCOSE, BUN, 10:09:00 [place] [facility] CREATININE, [place]) Branch MAGNESIUM 2022-08-06 [place], [facility] of 10:09:00 [facility] CBC WITH DIFF 2022-08-06 [place], [facility] of 10:09:00 [facility] BASIC METABOLIC PANEL (NA, K, 2022-08-05 Nicholas Charles Un iversity of CL, CO2, GLUCOSE, BUN, 23:19:00 [place] [facility] CREATININE, CA) Branch PROTHROMBIN TIME / INR 2022-08-05 Nicholas Charles [facility] y of 23:19:00 [facility] BASIC METABOLIC PANEL (NA, K, 2022-08-05 Nicholas Charles Un iversity of CL, CO2, GLUCOSE, BUN, 23:19:00 [place] [facility] ical CREATININE, CA) Branch PROTHROMBIN TIME / INR 2022-08-05 Nicholas Charles [facility] y of 23:19:00 [place] [facility] [place] MAGNESIUM 2022-08-05 [place], [facility] of 10:38:00 [facility] BASIC METABOLIC PANEL (NA, K, 2022-08-05 [place], Sir[place] Un iversity of CL, CO2, GLUCOSE, BUN, 10:38:00 [facility] [place]) Branch CBC WITH DIFF 2022-08-05 [place], [facility] of 10:38:00 [facility] BASIC METABOLIC PANEL (NA, K, 2022-08-05 [place], [place] Un iversity of CL, CO2, GLUCOSE, BUN, 10:38:00 [place] [facility] CREATININE, CA) Branch MAGNESIUM 2022-08-05 [place], [facility] of 10:38:00 Al[facility] CBC WITH DIFF 2022-08-05 [place], [facility] of 10:38:00 [facility] CBC WITHOUT DIFF 2022-08-04 [place], [facility] of 11:25:00 [facility] CBC WITHOUT DIFF 2022-08-04 [place], [facility] of 11:25:00 Al[facility] MAGNESIUM 2022-08-03 [place], [facility] 10:07:00 [facility] BASIC METABOLIC PANEL (NA, K, 2022-08-03 [place], [place] Un iversity of CL, CO2, GLUCOSE, BUN, 10:07:00 [place] [facility] CREATININE, CA) Branch CBC WITHOUT DIFF 2022-08-03 [place], [facility] 10:07:00 [facility] [place] BASIC METABOLIC PANEL (NA, K, 2022-08-03 [place], Sirisha Un iversity of CL, CO2, GLUCOSE, BUN, 10:07:00 Al[place] [facility] CREATININE, CA) Branch CBC WITHOUT DIFF 2022-08-03 [place], [facility] of 10:07:00 Al[facility] MAGNESIUM 2022-08-03 [place], [facility] 10:07:00 [place] [facility] [place] MAGNESIUM 2022-08-02 [place], [facility] 10:39:00 [facility] BASIC METABOLIC PANEL (NA, K, 2022-08-02 [place], Sirisha Un iversity of CL, CO2, GLUCOSE, BUN, 10:39:00 Al[place] [facility] CREATININE, CA) Branch CBC WITHOUT DIFF 2022-08-02 [place], [facility] of 10:39:00 Al[facility] BASIC METABOLIC PANEL (NA, K, 2022-08-02 [place], Sirisha Un iversity of CL, CO2, GLUCOSE, BUN, 10:39:00 Al[place]ra [place] [facility] CREATININE, CA) Branch CBC WITHOUT DIFF 2022-08-02 [place], [facility] of 10:39:00 Al[facility] MAGNESIUM 2022-08-02 [place], [facility] of 10:39:00 Al[facility] MAGNESIUM 2022-08-01 [place], [facility] 11:25:00 [facility] BASIC METABOLIC PANEL (NA, K, 2022-08-01 [place], [place] Un iversity of CL, CO2, GLUCOSE, BUN, 11:25:00 [facility] CREATININE, [place]) Branch CBC WITH DIFF 2022-08-01 [place], [facility] of 11:25:00 [facility] BASIC METABOLIC PANEL (NA, K, 2022-08-01 [place], Sir[place] Un iversity of CL, CO2, GLUCOSE, BUN, 11:25:00 [facility] ical CREATININE, [place]) Branch MAGNESIUM 2022-08-01 [place], [facility] of 11:25:00 [facility] CBC WITH DIFF 2022-08-01 [place], [facility] of 11:25:00 [facility] CBC WITH DIFF 2022-07-31 [place], [facility] of 17:46:00 [facility] CBC WITH DIFF 2022-07-31 [place], [facility] of 17:46:00 [facility] HEPATITIS C VIRUS (HCV) BY 2022-07-31 [place], [facility] QUANTITATIVE NAAT 17:42:00 [facility] HEPATITIS B VIRUS (HBV) BY 2022-07-31 [place], [place] Unive rsity of QUANTITATIVE NAAT 17:42:00 [facility] HEPATITIS B VIRUS (HBV) BY 2022-07-31 [place], [facility] QUANTITATIVE NAAT 17:42:00 [facility] HEPATITIS C VIRUS (HCV) BY 2022-07-31 [place], [facility] QUANTITATIVE NAAT 17:42:00 [facility] MAGNESIUM 2022-07-31 [place], [facility] of 10:31:00 [facility] BASIC METABOLIC PANEL (NA, K, 2022-07-31 [place], [place] Un iversity of CL, CO2, GLUCOSE, BUN, 10:31:00 [facility] ical CREATININE, [place]) Branch CBC WITHOUT DIFF 2022-07-31 [place], [facility] of 10:31:00 [facility] HIV 1/2 AG-AB WITH REFLEX 2022-07-31 [place], [facility] sity of 10:31:00 [facility] BASIC METABOLIC PANEL (NA, K, 2022-07-31 [place], [place] Un iversity of CL, CO2, GLUCOSE, BUN, 10:31:00 [facility] ical CREATININE, [place]) Branch CBC WITHOUT DIFF 2022-07-31 [place], [facility] of 10:31:00 [facility] MAGNESIUM 2022-07-31 [place], [facility] of 10:31:00 [facility] HIV 1/2 AG-AB WITH REFLEX 2022-07-31 [place], [facility] sity of 10:31:00 [facility] XR CHEST 1 VW 2022-07-30 [place] of 12:39:00 [facility] XR CHEST 1 VW 2022-07-30 [place] of 12:39:00 [facility] URINALYSIS 2022-07-30 [place] of 12:30:00 [facility] URINALYSIS 2022-07-30 [place] of 12:30:00 [facility] URINE CULTURE 2022-07-30 [place] of 12:30:00 [facility] URINE CULTURE 2022-07-30 [place] of 12:30:00 [facility] [facility] CBC WITH DIFF 2022-07-30 [place] of 12:27:00 [facility] BASIC METABOLIC PANEL (NA, K, 2022-07-30 [place], Sirisha Un iversity of CL, CO2, GLUCOSE, BUN, 12:27:00 [facility] CREATININE, CA) Branch BASIC METABOLIC PANEL (NA, K, 2022-07-30 [place], Sirisha Un iversity of CL, CO2, GLUCOSE, BUN, 12:27:00 [facility] [place]) Branch CBC WITH DIFF 2022-07-30 [place] [facility] of 12:27:00 [facility] LACTIC ACID WHOLE BLOOD 2022-07-30 [place] [facility] ty of 12:22:00 [facility] LACTIC ACID WHOLE BLOOD 2022-07-30 [place] [facility] of 12:22:00 [facility] BLOOD CULTURE SCREEN 2022-07-30 [place], [facility] of 12:20:00 [facility] BLOOD CULTURE SCREEN 2022-07-30 [place], [facility] of 12:20:00 [facility] BLOOD CULTURE WORKUP 2022-07-30 [place], [facility] of 12:20:00 [facility] BLOOD CULTURE WORKUP 2022-07-30 [place], [facility] of 12:20:00 [facility] GRAM NEGATIVE BLOOD PATHOGENS 2022-07-30 [place] Un iversity of DNA PROBE-ANAEROBIC 12:20:00 [facility] BLOOD CULTURE WORKUP 2022-07-30 [place], [facility] 12:20:00 [facility] BLOOD CULTURE WORKUP 2022-07-30 [place], [facility] 12:20:00 [facility] GRAM NEGATIVE BLOOD PATHOGENS 2022-07-30 [place], [place] Un iversity of DNA PROBE-ANAEROBIC 12:20:00 [facility] HB ECG ROUTINE & RHYTHM STRIP 2022-07-30 Branden Tim Un iversity of 12:10:22 [facility] HB ECG ROUTINE & RHYTHM STRIP 2022-07-30 Branden Tim Un iversity of 12:10:22 [facility] BASIC METABOLIC PANEL (NA, K, 2022-07-29 [place], [place] Un iversity of CL, CO2, GLUCOSE, BUN, 11:07:00 [facility] ical CREATININE, CA) Branch MAGNESIUM 2022-07-29 [place], [facility] 11:07:00 [facility] CBC WITH DIFF 2022-07-29 Nicholas [place] of 11:07:00 [facility] HEPATIC FUNCTION PANEL ([id number]) 2022-07-29 Nicholas Charles niversity of (ALB,T.PRO,BILI 11:07:00 [facility] T,BU/BC,ALT,AST,ALK PHOS) Branch MAGNESIUM 2022-07-29 [place], [facility] of 11:07:00 [facility] HEPATIC FUNCTION PANEL ([id number]) 2022-07-29 Nicholas Charles niversity of (ALB,T.PRO,BILI 11:07:00 [place] [facility] T,BU/BC,ALT,AST,ALK PHOS) Branch BASIC METABOLIC PANEL (NA, K, 2022-07-29 [place], Sirisha Un iversity of CL, CO2, GLUCOSE, BUN, 11:07:00 [facility] [place] [facility] CREATININE, CA) Branch CBC WITH DIFF 2022-07-29 Nicholas Charles of 11:07:00 [facility] HB ECG ROUTINE & RHYTHM STRIP 2022-07-29 Branden Tim Un iversity of 01:45:03 [facility] HB ECG ROUTINE & RHYTHM STRIP 2022-07-29 Branden Tim Un iversity of 01:45:03 [facility] IR PLACEMENT ACCESS THRU BILIARY 2022-07-28 [place], [facility] PERCUTANEOUS NEW ACCESS 22:28:42 [place] as [facility] IR PLACEMENT ACCESS THRU BILIARY 2022-07-28 [facility] PERCUTANEOUS NEW ACCESS 22:28:42 [place] [facility] IR DRAINAGE BY CATHETER 2022-07-28 [facility] ty of PERITONEAL OR RETROPERITONEAL 18:30:00 [facility] Medical Branch IR DRAINAGE BY CATHETER 2022-07-28 [facility] ty of PERITONEAL OR RETROPERITONEAL 18:30:00 [facility] BODY FLUID 2022-07-28 [facility] of CULTURE(AEROBIC/ANAEROBIC) 18:14:00 [facility] BODY FLUID 2022-07-28 [facility] of CULTURE(AEROBIC/ANAEROBIC) 18:14:00 [facility] BASIC METABOLIC PANEL (NA, K, 2022-07-28 [place], Sirisha Un iversity of CL, CO2, GLUCOSE, BUN, 11:35:00 [facility] [place] [facility] CREATININE, CA) Branch CBC WITHOUT DIFF 2022-07-28 [place], [facility] of 11:35:00 [facility] MAGNESIUM 2022-07-28 [place], [facility] 11:35:00 [facility] MAGNESIUM 2022-07-28 [place], [facility] of 11:35:00 [facility] BASIC METABOLIC PANEL (NA, K, 2022-07-28 [place], [place] Un iversity of CL, CO2, GLUCOSE, BUN, 11:35:00 [facility] [place] [facility] CREATININE, CA) Branch CBC WITHOUT DIFF 2022-07-28 [place], [facility] of 11:35:00 [facility] MR ABDOMEN W WO CONTRAST MRCP 2022-07-28 Melvin Anguiano Un iversity of 04:29:46 [facility] MR ABDOMEN W WO CONTRAST MRCP 2022-07-28 Melvin Anguiano Un iversity of 04:29:46 [facility] IR EXCHANGE OF BILIARY DRAINAGE 2022-07-28 [place], [facility] of CATHETER 00:36:00 Alondra [facility] IR EXCHANGE OF BILIARY DRAINAGE 2022-07-28 [place], [facility] of CATHETER 00:36:00 Alondra [facility] XR KUB 2022-07-27 [place], [facility] of 21:30:00 [facility] XR KUB 2022-07-27 [place], [facility] of 21:30:00 [facility] CBC WITHOUT DIFF 2022-07-27 [place] [facility] of 18:10:00 [facility] BASIC METABOLIC PANEL (NA, K, 2022-07-27 [place], Sirisha Un iversity of CL, CO2, GLUCOSE, BUN, 18:10:00 [facility]ATIN[facility] [place]) Branch PROTHROMBIN TIME / INR 2022-07-27 [place], [facility] y of 18:10:00 [facility] BASIC METABOLIC PANEL (NA, K, 2022-07-27 [place], Sirisha Un iversity of CL, CO2, GLUCOSE, BUN, 18:10:00 [facility] CREATININE, [place]) Branch CBC WITHOUT DIFF 2022-07-27 Branden Tim [place] of 18:10:00 [facility] PROTHROMBIN TIME / INR 2022-07-27 [place], [facility] y of 18:10:00 [facility] HB ECG ROUTINE & RHYTHM STRIP 2022-07-27 [place], Sirisha Un iversity of 15:50:09 [facility] HB ECG ROUTINE & RHYTHM STRIP 2022-07-27 [place], Sirisha Un iversity of 15:50:09 [facility] CT ABDOMEN PELVIS W CONTRAST 2022-07-27 Nicholas Charles Uni versity of 14:49:11 [facility] CT ABDOMEN PELVIS W CONTRAST 2022-07-27 Nicholas Charles Uni versity of 14:49:11 [facility] CBC WITH DIFF 2022-07-27 Nicholas Charles of 08:05:00 [facility] BASIC METABOLIC PANEL (NA, K, 2022-07-27 Araceli, Nicholas Hu iversity of CL, CO2, GLUCOSE, BUN, 08:05:00 [place] [facility] CREATININE, CA) Branch MAGNESIUM 2022-07-27 [place], [facility] of 08:05:00 [facility] LIPID PANEL ([id number])(TOTAL 2022-07-27 Araceli, Nicholas [facility] sity of CHOLESTEROL, TRIGLYCERIDES, HDL) 08:05:00 [facility] LIPASE 2022-07-27 [place], [facility] of 08:05:00 Alondra [facility] LIPASE 2022-07-27 [place], [facility] of 08:05:00 Alondra [facility] MAGNESIUM 2022-07-27 Araceli, [facility] of 08:05:00 [facility] BASIC METABOLIC PANEL (NA, K, 2022-07-27 Araceli, Nicholas Hu iversity of CL, CO2, GLUCOSE, BUN, 08:05:00 [place] [facility] CREATININE, [place]) [place] LIPID PANEL ([id number])(TOTAL 2022-07-27 Araceli, [facility] of CHOLESTEROL, TRIGLYCERIDES, HDL) 08:05:00 [facility] CBC WITH DIFF 2022-07-27 Araceli, [facility] of 08:05:00 [facility] US ABDOMEN LIMITED 2022-07-27 Araceli, [facility] of 03:31:00 [facility] US ABDOMEN LIMITED 2022-07-27 Araceli, [facility] of 03:31:00 [facility] ACTIVATED PARTIAL THRMPLAS CHARLES 2022-07-26 Araceli, Nicholas Galvez nivmoeity of 22:23:00 [facility] C-REACTIVE PROTEIN 2022-07-26 Araceli, [facility] of 22:23:00 [facility] PHOSPHORUS 2022-07-26 Araceli, [facility] of 22:23:00 [facility] C-REACTIVE PROTEIN 2022-07-26 Araceli, [facility] of 22:23:00 [facility] HEPATIC FUNCTION PANEL ([id number]) 2022-07-26 Nicholas Charles niversity of (ALB,T.PRO,BILI 22:23:00 [facility],BU/BC,ALT,AST,ALK PHOS) [place] BASIC METABOLIC PANEL (NA, K, 2022-07-26 Araceli, Nicholas Un iversity of CL, CO2, GLUCOSE, BUN, 22:23:00 [place] [facility] CREATININE, CA) Branch CBC WITH DIFF 2022-07-26 Araceli Nicholaslatesha Fall of 22:23:00 [facility] PROTHROMBIN TIME / INR 2022-07-26 Araceli, [facility] y of 22:23:00 [facility] ACTIVATED PARTIAL THRMPLAS CHARLES 2022-07-26 Nicholas Charles U niversity of 22:23:00 [facility] CBC WITH DIFF 2022-07-26 Araceli [facility] of 22:23:00 [facility] BASIC METABOLIC PANEL (NA, K, 2022-07-26 Nicholas Charles Un iversity of CL, CO2, GLUCOSE, BUN, 22:23:00 [place] [facility] CREATININE, CA) Branch HEPATIC FUNCTION PANEL ([id number]) 2022-07-26 Nicholas Charles niversity of (ALB,T.PRO,BILI 22:23:00 [facility],BU/BC,ALT,AST,ALK PHOS) Branch PHOSPHORUS 2022-07-26 Araceli [facility] of 22:23:00 [facility] PROTHROMBIN TIME / INR 2022-07-26 Araceli, [facility] y of 22:23:00 [facility] XR CHEST 1 VW 2022-07-26 Araceli, [facility] of 21:45:00 [facility] XR CHEST 1 VW 2022-07-26 Araceli, [facility] of 21:45:00 [facility] CT ABDOMEN PELVIS W CONTRAST 2022-07-10 Zuniga, Chris Uni versity of 00:27:49 [facility] CT ABDOMEN PELVIS W CONTRAST 2022-07-10 Jan Zunigao Uni versity of 00:27:49 [facility] CBC WITH DIFF 2022-07-09 Britta [facility] of 22:40:00 [facility] CBC WITH DIFF 2022-07-09 Casie Callejas of 22:40:00 [facility] LIPASE 2022-07-09 Britta [facility] of 22:32:00 [facility] COMP. METABOLIC PANEL ([id number]) 2022-07-09 Casie Callejas iversity of 22:32:00 [facility] LIPASE 2022-07-09 Casie Callejas of 22:32:00 [facility] COMP. METABOLIC PANEL ([id number]) 2022-07-09 Casie Callejas iversity of 22:32:00 [facility] EMERGENCY SERVICES AGREEMENTS 2022-07-09 Doctor Unassigned, University AND AUTHORIZATIONS 05:01:00 [place] [facility] CBC WITH DIFF 2022-06-27 Brayan [facility] of 09:50:00 [facility] BASIC METABOLIC PANEL (NA, K, 2022-06-27 Cherie Schmidt Un iversity of CL, CO2, GLUCOSE, BUN, 09:50:00 [place] [facility] CREATININE, CA) Branch MAGNESIUM 2022-06-27 Brayan [facility] of 09:50:00 [facility] MAGNESIUM 2022-06-27 Brayan [facility] of 09:50:00 [facility] BASIC METABOLIC PANEL (NA, K, 2022-06-27 Cherie Schmidt Un iversity of CL, CO2, GLUCOSE, BUN, 09:50:00 [place] [facility] CREATININE, CA) Branch CBC WITH DIFF 2022-06-27 Brayan [facility] of 09:50:[address] [facility] CT CHEST PULMONARY ANGIOGRAM 2022-06-26 [facility] of 15:22:27 [facility] CBC WITH DIFF 2022-06-26 Brayan [facility] of 11:30:00 [facility] BASIC METABOLIC PANEL (NA, K, 2022-06-26 Cherie Schmidt Un iversity of CL, CO2, GLUCOSE, BUN, 11:30:00 [place] [facility] CREATININE, CA) Branch MAGNESIUM 2022-06-26 Brayan [facility] of 11:30:00 [facility] D-DIMER 2022-06-26 Brayan, [facility] of 11:30:00 [facility] TROPONIN I 2022-06-26 Cruz Galo [place] of 11:30:00 [facility] N-TERMINAL PRO-BNP 2022-06-26 Cruz Galo [place] of 11:30:00 [facility] MAGNESIUM 2022-06-26 Brayan [facility] of 11:30:00 [facility] TROPONIN I 2022-06-26 Cruz Galo [place] of 11:30:00 [facility] BASIC METABOLIC PANEL (NA, K, 2022-06-26 Cherie Schmidt iversity of CL, CO2, GLUCOSE, BUN, 11:30:00 [facility] ical CREATININE, CA) Branch CBC WITH DIFF 2022-06-26 [facility] [place] of 11:30:00 [facility] D-DIMER 2022-06-26 [facility] [place] of 11:30:00 [facility] N-TERMINAL PRO-BNP 2022-06-26 Iraj [facility] of 11:30:00 [facility] HB ECG ROUTINE & RHYTHM STRIP 2022-06-26 Marin Long Un iversity of 11:04:45 [facility] HB ECG ROUTINE & RHYTHM STRIP 2022-06-26 Aldo Longus Un iversity of 11:04:45 [facility] XR CHEST 1 VW 2022-06-26 Eversurya [facility] of 10:55:00 [facility] XR KUB 2022-06-26 [facility] of 10:55:00 [facility] XR CHEST 1 VW 2022-06-26 Eversurya [facility] of 10:55:00 [facility] XR KUB 2022-06-26 [facility], [facility] of 10:55:00 [facility] HEPATIC FUNCTION PANEL ([id number]) 2022-06-25 Jose Ramon Johnson U niversity of (ALB,T.PRO,BILI 23:02:00 [facility] T,BU/BC,ALT,AST,ALK PHOS) [place] HEPATIC FUNCTION PANEL ([id number]) 2022-06-25 Jose Ramon Johnson U niversity of (ALB,T.PRO,BILI 23:02:00 [place] [facility] T,BU/BC,ALT,AST,ALK PHOS) Branch POCT GLUCOSE (AUTOMATED) 2022-06-25 Heath Dia [facility] ersity of 20:13:00 [facility] POCT GLUCOSE (AUTOMATED) 2022-06-25 Heath Dia [facility] ersity of 20:13:00 [facility] IR PLACEMENT ACCESS THRU BILIARY 2022-06-25 Cherie Schmidt [place] of TREE PERCUTANEOUS NEW ACCESS 18:30:31 [place] as Medical Branch BASIC METABOLIC PANEL (NA, K, 2022-06-24 Cherie Schmidt Un iversity of CL, CO2, GLUCOSE, BUN, 14:28:00 [place] [facility] CREATININE, CA) Branch MAGNESIUM 2022-06-24 Cherie Schmidt [place] of 14:28:00 [facility] HEPATIC FUNCTION PANEL ([id number]) 2022-06-24 Jose Ramon Johnson U niversity of (ALB,T.PRO,BILI 14:28:00 [place] [facility] T,BU/BC,ALT,AST,ALK PHOS) Branch MAGNESIUM 2022-06-24 Cherie Schmidt [place] of 14:28:00 [facility] HEPATIC FUNCTION PANEL ([id number]) 2022-06-24 Jose Ramon Johnson U niversity of (ALB,T.PRO,BILI 14:28:00 [place] [facility] T,BU/BC,ALT,AST,ALK PHOS) Branch BASIC METABOLIC PANEL (NA, K, 2022-06-24 Cherie Schmidt Un iversity of CL, CO2, GLUCOSE, BUN, 14:28:00 [place] [facility] CREATININE, CA) Branch MAGNESIUM 2022-06-24 Cherie Schmidt [place] of 14:28:00 [facility] BASIC METABOLIC PANEL (NA, K, 2022-06-24 Cherie Schmidt Un iversity of CL, CO2, GLUCOSE, BUN, 14:28:00 [place] [facility] CREATININE, CA) Branch CBC WITH DIFF 2022-06-24 Cherie Schmidt [place] of 10:11:00 [facility] CBC WITH DIFF 2022-06-24 Cherie Schmidt [place] of 10:11:00 [facility] CBC WITH DIFF 2022-06-24 Brayan [facility] of 10:11:00 [facility] BASIC METABOLIC PANEL (NA, K, 2022-06-23 Cherie Schmidt Un iversity of CL, CO2, GLUCOSE, BUN, 21:07:00 [place] [facility] CREATININE, CA) Branch PROTHROMBIN TIME / INR 2022-06-23 Cherie Schmidt [facility] y of 21:07:00 [facility] HEPATIC FUNCTION PANEL ([id number]) 2022-06-23 Jose Ramon Johnson U niversity of (ALB,T.PRO,BILI 21:07:00 [place] [facility] T,BU/BC,ALT,AST,ALK PHOS) Branch HEPATIC FUNCTION PANEL ([id number]) 2022-06-23 Jose Ramon Johnson U niversity of (ALB,T.PRO,BILI 21:07:00 [place] [facility] T,BU/BC,ALT,AST,ALK PHOS) Branch BASIC METABOLIC PANEL (NA, K, 2022-06-23 Cherie Schmidt Un iversity of CL, CO2, GLUCOSE, BUN, 21:07:00 [place] [facility] CREATININE, CA) Branch PROTHROMBIN TIME / INR 2022-06-23 Cherie Schmidt Univers y of 21:07:00 [facility] HEPATIC FUNCTION PANEL ([id number]) 2022-06-23 Jose Ramon Johnson U niversity of (ALB,T.PRO,BILI 21:07:00 [place] [facility] T,BU/BC,ALT,AST,ALK PHOS) Branch BASIC METABOLIC PANEL (NA, K, 2022-06-23 Cherie Schmidt Un iversity of CL, CO2, GLUCOSE, BUN, 21:07:00 [place] [facility] CREATININE, CA) Branch PROTHROMBIN TIME / INR 2022-06-23 Cherie Schmidt [facility] y of 21:07:00 [facility] INTUBATION 2022-06-23 [facility] of 15:00:00 [facility] ENDOSCOPIC RETROGRADE 2022-06-23 [facility] ty of CHOLANGIOPANCRETOGRAPHY 14:40:00 [facility] dical Branch ENDOSCOPIC RETROGRADE 2022-06-23 [facility] ty of CHOLANGIOPANCRETOGRAPHY 14:40:00 [facility] dical Branch ENDOSCOPIC RETROGRADE 2022-06-23 [facility] ty of CHOLANGIOPANCRETOGRAPHY 14:40:00 [facility] dicmi Branch ERCP (ENDO) 2022-06-[address] [facility] of 14:30:10 [facility] ERCP (ENDO) 2022-06-[address] [facility] of 14:30:10 [facility] PROTHROMBIN TIME / INR 2022-06-23 Cruz Galoit y of 10:05:00 [facility] COMP. METABOLIC PANEL ([id number]) 2022-06-23 Cruz Galo iversity of 10:05:00 [facility] CBC WITH DIFF 2022-06-23 Cruz Galo of 10:05:00 [facility] COMP. METABOLIC PANEL ([id number]) 2022-06-23 Cruz Galo Un iversity of 10:05:00 [facility] CBC WITH DIFF 2022-06-23 Cruz Galo [place] of 10:05:00 [facility] PROTHROMBIN TIME / INR 2022-06-23 GaloCruz [facility] y of 10:05:00 [facility] COMP. METABOLIC PANEL ([id number]) 2022-06-23 Cruz Galo Un iversity of 10:05:00 [facility] CBC WITH DIFF 2022-06-23 Cruz Galo [place] of 10:05:00 [facility] PROTHROMBIN TIME / INR 2022-06-23 IrajCruz [facility] y of 10:05:00 [facility] CBC WITH DIFF 2022-06-22 [facility] of 06:07:00 [facility] BASIC METABOLIC PANEL (NA, K, 2022-06-22 Brayan, [facility] Un iversity of CL, CO2, GLUCOSE, BUN, 06:07:00 [place] [facility] CREATININE, CA) Branch MAGNESIUM 2022-06-22 [facility] of 06:07:00 [facility] HEPATIC FUNCTION PANEL ([id number]) 2022-06-22 April Cardoza U niversity of (ALB,T.PRO,BILI 06:07:00 [place] [facility] T,BU/BC,ALT,AST,ALK PHOS) Branch MAGNESIUM 2022-06-22 [facility] of 06:07:00 [facility] HEPATIC FUNCTION PANEL ([id number]) 2022-06-22 April Cardoza U niversity of (ALB,T.PRO,BILI 06:07:00 [place] [facility] T,BU/BC,ALT,AST,ALK PHOS) Branch BASIC METABOLIC PANEL (NA, K, 2022-06-22 Brayan, [facility] Un iversity of CL, CO2, GLUCOSE, BUN, 06:07:00 [place] [facility] CREATININE, CA) Branch CBC WITH DIFF 2022-06-22 Brayan [facility] of 06:07:00 [facility]ESIUM 2022-06-[facility] 06:07[facility]00 [facility] HEPATIC FUNCTION PANEL ([id number]) 2022-06-22 April Cardoza U niversity of (ALB,T.PRO,BILI 06:07:00 [place] [facility] T,BU/BC,ALT,AST,ALK PHOS) Branch BASIC METABOLIC PANEL (NA, K, 2022-06-22 Cherie Schmidt Un iversity of CL, CO2, GLUCOSE, BUN, 06:07:00 [place] [facility] CREATININE, CA) Branch CBC WITH DIFF 2022-06-22 Cherie Schmidt [place] of 06:07:00 [facility] HEPATOBILIARY 2022-06-21 [place] of 22:00:00 [facility] HEPATOBILIARY 2022-06-21 [place] of 22:00:00 [facility] HEPATOBILIARY 2022-06-21 [place] of 22:00:00 [facility] PROTHROMBIN TIME / INR 2022-06-21 [place], [facility] of 10:51:00 [facility] CBC WITH DIFF 2022-06-21 [place] of 10:51:00 [facility] BASIC METABOLIC PANEL (NA, K, 2022-06-21 Branden Tim Un iversity of CL, CO2, GLUCOSE, BUN, 10:51:00 [place] [facility] CREATININE, CA) Branch HEPATIC FUNCTION PANEL ([id number]) 2022-06-21 Branden Tim U niversity of (ALB,T.PRO,BILI 10:51:00 [place] [facility] T,BU/BC,ALT,AST,ALK PHOS) Branch HEPATIC FUNCTION PANEL ([id number]) 2022-06-21 Branden Tim U niversity of (ALB,T.PRO,BILI 10:51:00 [place] [facility] T,BU/BC,ALT,AST,ALK PHOS) Branch BASIC METABOLIC PANEL (NA, K, 2022-06-21 Branden Tim Un iversity of CL, CO2, GLUCOSE, BUN, 10:51:00 [place] [facility] CREATININE, CA) Branch CBC WITH DIFF 2022-06-21 Branden Tim [place] of 10:51:00 [facility] PROTHROMBIN TIME / INR 2022-06-21 [place], Branden [facility] y of 10:51:00 [facility] HEPATIC FUNCTION PANEL ([id number]) 2022-06-21 Branden Tim U niversity of (ALB,T.PRO,BILI 10:51:00 [place] [facility] T,BU/BC,ALT,AST,ALK PHOS) Branch BASIC METABOLIC PANEL (NA, K, 2022-06-21 Branden Tim Un iversity of CL, CO2, GLUCOSE, BUN, 10:51:00 [place] [facility] CREATININE, CA) Branch CBC WITH DIFF 2022-06-21 Branden Tim of 10:51:00 [facility] PROTHROMBIN TIME / INR 2022-06-21 Branden Tim Universit y of 10:51:00 [facility] CBC WITH DIFF 2022-06-20 Michelle Grande [place] of 06:45:00 [facility] COMP. METABOLIC PANEL ([id number]) 2022-06-20 Michelle Grande Un iversity of 06:45:00 [facility] PROTHROMBIN TIME / INR 2022-06-20 Michelle Grande [facility] y of 06:45:00 [facility] COMP. METABOLIC PANEL ([id number]) 2022-06-20 Michelle Grande Un iversity of 06:45:00 [facility] CBC WITH DIFF 2022-06-20 Michelle Grande [place] of 06:45:00 [facility] PROTHROMBIN TIME / INR 2022-06-20 Michelle Grande [facility] y of 06:45:00 [facility] COMP. METABOLIC PANEL ([id number]) 2022-06-20 Michelle Grande Un iversity of 06:45:00 [facility] CBC WITH DIFF 2022-06-20 Michelle Grande of 06:45:00 [facility] PROTHROMBIN TIME / INR 2022-06-20 Michelle Grande [facility] y of 06:45:00 [facility] HEPATITIS C VIRUS (HCV) BY 2022-06-19 Michelle Grande Unive rsity of QUANTITATIVE NAAT 10:56:00 [facility] BASIC METABOLIC PANEL (NA, K, 2022-06-19 Michelle Grande Un iversity of CL, CO2, GLUCOSE, BUN, 10:56:00 [place] [facility] CREATININE, [place]) Branch MAGNESIUM 2022-06-19 Michelle Grande of 10:56:00 [facility] MAGNESIUM 2022-06-19 Michelle Grande of 10:56:00 [facility] BASIC METABOLIC PANEL (NA, K, 2022-06-19 Michelle Grande Un iversity of CL, CO2, GLUCOSE, BUN, 10:56:00 [place] [facility] CREATININE, CA) Branch HEPATITIS C VIRUS (HCV) BY 2022-06-19 Michelle Grande rsity of QUANTITATIVE NAAT 10:56:00 [facility] MAGNESIUM 2022-06-19 Michelle Grande [facility] of 10:56:00 [facility] BASIC METABOLIC PANEL (NA, K, 2022-06-19 Michelle Grande Un iversity of CL, CO2, GLUCOSE, BUN, 10:56:00 [place] [facility] CREATININE, CA) Branch HEPATITIS C VIRUS (HCV) BY 2022-06-19 Michelle Grande rsity of QUANTITATIVE NAAT 10:56:00 [facility] CT ANGIOGRAM ABDOMEN/PELVIS 2022-06-19 Michelle Grande ersity of 08:05:28 [facility] CT ANGIOGRAM ABDOMEN/PELVIS 2022-06-19 Michelle Grande [facility] ersity of 08:05:28 [facility] CT ANGIOGRAM ABDOMEN/PELVIS 2022-06-19 [facility] 08:05:28 [facility] MR ABDOMEN W WO CONTRAST MRCP 2022-06-18 Cruz Galo Un iversity of 09:58:00 [facility] MR ABDOMEN W WO CONTRAST MRCP 2022-06-18 Cruz Galo Un iversity of 09:58:00 [facility] MR ABDOMEN W WO CONTRAST MRCP 2022-06-18 Cruz Galo Un iversity of 09:58:00 [facility] BLOOD CULTURE SCREEN 2022-06-18 Cruz Galo of 06:57:00 [facility] BLOOD CULTURE SCREEN 2022-06-18 Cruz Galo of 06:57:00 [facility] BLOOD CULTURE SCREEN 2022-06-18 Cruz Galo of 06:57:00 [facility] URINALYSIS 2022-06-17 Yoni Mckee [place] of 22:32:00 [facility] URINALYSIS 2022-06-17 Rylee [facility] of 22:32:00 [facility] URINALYSIS 2022-06-17 DelliYoni wyman of 22:32:00 [facility] CT ABDOMEN PELVIS W CONTRAST 2022-06-17 Yoni Mckee Uni versity of 22:20:00 [facility] CT ABDOMEN PELVIS W CONTRAST 2022-06-17 Yoni Mckee Uni versity of 22:20:00 [facility] CT ABDOMEN PELVIS W CONTRAST 2022-06-17 Yoni Mckee Uni versity of 22:20:00 [facility] LACTIC ACID WHOLE BLOOD 2022-06-17 Rylee, Y[facility] ty of 21:18:00 [facility] LACTIC ACID WHOLE BLOOD 2022-06-17 Rylee, [facility] ty of 21:18:00 [facility] LACTIC ACID WHOLE BLOOD 2022-06-17 Rylee, [facility] ty of 21:18:00 [facility] LAB ONLY COVID INTERPRETATION 2022-06-17 Yoni Mckee iversity of 20:04:00 [facility] CBC WITH DIFF 2022-06-17 Yoni Mckee [place] of 20:04:00 [facility] BASIC METABOLIC PANEL (NA, K, 2022-06-17 Yoni Mckee iversity of CL, CO2, GLUCOSE, BUN, 20:04:00 [facility] ical CREATININE, CA) Branch HEPATIC FUNCTION PANEL (56210) 2022-06-17 Yoni Mckee niversity of (ALB,T.PRO,BILI 20:04:00 [facility] T,BU/BC,ALT,AST,ALK PHOS) Branch LIPASE 2022-06-17 Yoni Mckee of 20:04:00 [facility] TROPONIN I 2022-06-17 Yoni Mckee of 20:04:00 [facility] N-TERMINAL PRO-BNP 2022-06-17 Yoni Mckee of 20:04:00 [facility] COVID-19 (ID NOW RAPID TESTING) 2022-06-17 Yoni Mckee of 20:04:00 [facility] GALV ONLY - INFLUENZA A B RSV 2022-06-17 Yoni Mckee iversity of PCR 20:04:00 [facility] LAB ONLY COVID INTERPRETATION 2022-06-17 Yoni Mckee iversity of 20:04:00 [facility] ALPHA FETOPROTEIN 2022-06-17 [facility] of 20:04:00 [facility] HEPATITIS B SURFACE ANTIBODY 2022-06-17 Michelle Grande Uni versity of 20:04:00 [facility] HEPATITIS B SURFACE ANTIGEN 2022-06-17 [facility] ersity of 20:04:00 [facility] HEPATITIS A VIRUS ANTIBODY IGM 2022-06-17 Michelle Grande U niversity of 20:04:00 [facility] LIPASE 2022-06-17 Yoni Mckee [place] of 20:04:00 [facility] TROPONIN I 2022-06-17 Yoni Mckee [place] of 20:04:00 [facility] HEPATIC FUNCTION PANEL (74127) 2022-06-17 Yoni Mckee niversity of (ALB,T.PRO,BILI 20:04:00 [facility],BU/BC,ALT,AST,ALK PHOS) Branch BASIC METABOLIC PANEL (NA, K, 2022-06-17 Yoni Mckee iversity of CL, CO2, GLUCOSE, BUN, 20:04:00 [facility] ical CREATININE, [place]) Branch ALPHA FETOPROTEIN 2022-06-17 [place] [facility] [facility] of 20:04:00 [facility] CBC WITH DIFF 2022-06-17 Yoni Mckee of 20:04:00 [facility] HEPATITIS B SURFACE ANTIBODY 2022-06-17 Michelle Grande Uni versity of 20:04:00 [facility] HEPATITIS B SURFACE ANTIGEN 2022-06-17 [facility] ersity of 20:04:00 [facility] HEPATITIS A VIRUS ANTIBODY IGM 2022-06-17 Michelle Grande U niversity of 20:04:00 [facility] GALV ONLY - INFLUENZA A B RSV 2022-06-17 Yoni Mckee Un iversity of PCR 20:04:00 [facility] N-TERMINAL PRO-BNP 2022-06-17 Yoni Mckee of 20:04:00 [facility] COVID-19 (ID NOW RAPID TESTING) 2022-06-17 Yoni Mckee of 20:04:00 [facility] LAB ONLY COVID INTERPRETATION 2022-06-17 Yoni Mckee iversity of 20:04:00 [facility] LIPASE 2022-06-17 Yoni Mckee of 20:04:00 [facility] TROPONIN I 2022-06-17 Yoni Mckee of 20:04:00 [facility] HEPATIC FUNCTION PANEL ([id number]) 2022-06-17 Yoni Mckee niversity of (ALB,T.PRO,BILI 20:04:00 [facility],BU/BC,ALT,AST,ALK PHOS) [place] BASIC METABOLIC PANEL (NA, K, 2022-06-17 Yoni Mckee iversity of CL, CO2, GLUCOSE, BUN, 20:04:00 [facility] ical CREATININE, [place]) [place] ALPHA FETOPROTEIN 2022-06-17 [place] [facility] [facility] of 20:04:00 [facility] CBC WITH DIFF 2022-06-17 Yoni Mckee of 20:04:00 [facility] HEPATITIS B SURFACE ANTIBODY 2022-06-17 [facility] 20:04:00 [facility] HEPATITIS B SURFACE ANTIGEN 2022-06-17 [facility] ersity of 20:04:00 [facility] HEPATITIS A VIRUS ANTIBODY IGM 2022-06-17 Michelle Grande niversity of 20:04:00 [facility] GALV ONLY - INFLUENZA A B RSV 2022-06-17 Yoni Mckee iversity of PCR 20:04:00 [facility] N-TERMINAL PRO-BNP 2022-06-17 Yoni Mckee of 20:04:00 [facility] COVID-19 (ID NOW RAPID TESTING) 2022-06-17 Yoni Mckee of 20:04:00 [facility] HB ECG ROUTINE & RHYTHM STRIP 2022-06-17 Yoni Mckee iversity of 19:51:18 [facility] HB ECG ROUTINE & RHYTHM STRIP 2022-06-17 Yoni Mckee iversity of 19:51:18 [facility] HB ECG ROUTINE & RHYTHM STRIP 2022-06-17 Yoni Mckee iversity of 19:51:18 [facility] CONSENT/REFUSAL FOR DIAGNOSIS 2022-06-17 Doctor Unassigned, [place] of AND TREATMENT 19:29:59 [place] [facility] CONSENT/REFUSAL FOR DIAGNOSIS 2022-06-17 Doctor Unassigned, [facility] AND TREATMENT 19:29:59 [place] [facility] CONSENT/REFUSAL FOR DIAGNOSIS 2022-06-17 Doctor Unassigned, [facility] AND TREATMENT 19:29:59 [place] [facility] HOSPITAL ADMISSION 2022-06-17 Doctor Unassigned, [facility] 05:01:00 [place] [facility] ENDOSCOPIC RETROGRADE 2022-06-[address] [facility] CHOLANGIOPANCREATOGRAPHY, WITH 11:30:00 M [facility] STENT REMOVAL XR ABDOMEN/KUB 1 VIEW PORTABLE 2022-06-08 Nuvia Burton [facility] 17:47:00 [facility] 2D ECHO W/ DOPPLER (CW/PW/COLOR) 2022-06-[address] [facility] 13:46:[address] [facility] [address] ABDOMEN/PELVIS WITH IV 2022-06-08 Jaqueline Peck [facility] CONTRAST 09:50:00 [facility] XR CHEST 1 VIEW PORTABLE / 2022-06-07 Miguel A Doug [facility] BEDSIDE 14:42:00 [facility] SARS-COV2/INFLUENZA/RSV RT-PCR 2022-06-[address] [facility] 13:30:00 [facility] PERMANENT LAB REPORT - SCAN 2022-06-07 Provider, Francisco [facility] 00:00:00 [facility] CBC W/PLT COUNT & AUTO 2022-05-[address] [facility] DIFFERENTIAL 04:18:00 [facility] COMPREHENSIVE METABOLIC PANEL 2022-05-[address] [facility] 04:18:00 [facility] CBC W/PLT COUNT & AUTO 2022-05-[address] [facility] [facility] DIFFERENTIAL 04:18:00 [facility] CBC W/PLT COUNT & AUTO 2022-05-[address] [facility] [facility] DIFFERENTIAL 03:21:00 [facility] COMPREHENSIVE METABOLIC PANEL 2022-05-[address] [facility] 03:21:00 [facility] CBC W/PLT COUNT & AUTO 2022-05-[address] [facility] DIFFERENTIAL 03:21:00 [facility] BODY FLUID CULTURE + GRAM STAIN 2022-05-[address] [facility] 16:45:00 [facility] IR TUNNELED DRAINAGE CATHETER 2022-05-[address] [facility] PLACEMENT 16:22:00 [facility] CBC W/PLT COUNT & AUTO 2022-05-[address] [facility] [facility] DIFFERENTIAL 05:15:00 [facility] COMPREHENSIVE METABOLIC PANEL 2022-05-[address] [facility] 05:15:00 [facility] PROTHROMBIN TIME/INR 2022-05-[address] [facility] 05:15:00 [facility] CBC W/PLT COUNT & AUTO 2022-05-[address] [facility] DIFFERENTIAL 05:15:00 [facility] SARS-COV2/RT-PCR ([facility] & REF 2022-05-[address] [facility]) 04:37:00 [facility] TYPE AND SCREEN, AUTOMATED 2022-05-15 [facility] 01:25:00 [facility] BASIC METABOLIC PANEL 2022-05-[address] [facility] 01:24:00 [facility] HEPATIC FUNCTION PANEL 2022-05-[address] 01:24:00 [facility] PROTHROMBIN TIME/INR 2022-05-[address] [facility] 01:24:00 [facility] PHOSPHORUS 2022-05-[address] [facility] 01:24:00 [facility] MAGNESIUM 2022-05-[address] [facility] 01:24:00 [facility] CBC W/PLT COUNT & AUTO 2022-05-[address] [facility] DIFFERENTIAL 01:24:00 [facility] CBC W/PLT COUNT & AUTO 2022-05-[address] [facility] DIFFERENTIAL 01:24:00 [facility] BASIC METABOLIC PANEL 2022-05-[address] [facility] 03:30:00 [facility] CBC W/PLT COUNT & AUTO 2022-05-[address] [facility] DIFFERENTIAL 03:30:00 [facility] MAGNESIUM 2022-05-[address] [facility] 03:30:00 [facility] HEPATIC FUNCTION PANEL 2022-05-[address] [facility] 03:30:00 [facility] LIPID PANEL 2022-05-[address] [facility] 03:30:00 [facility] CBC W/PLT COUNT & AUTO 2022-05-[address] DIFFERENTIAL 03:30:[address] [facility] [address] ABDOMEN/PELVIS WITH IV 2022-05-[address] [facility] [facility] CONTRAST 19:08:00 [facility] REPORT OF PROCEDURE - ENDOSCOPY 2022-05-[address] [facility] URL 14:45:00 [facility] ERCP, WITH SPHINCTEROTOMY 2022-05-[address] [facility] [facility] 08:00:00 [facility] ENDOSCOPIC RETROGRADE 2022-05-[address] [facility] CHOLANGIOPANCREATOGRAPHY, WITH 08:00:00 [facility] BILE DUCT STENT INSERTION ERCP, WITH BALLOON SWEEP OF BILE 2022-05-[address] [facility] DUCTS 08:00:00 [facility] PROCEDURE W/ C-ARM 2022-05-[address] [facility] 08:00:00 [facility] CBC (HEMOGRAM ONLY) 2022-05-[address] [facility] 03:20:00 [facility] COMPREHENSIVE METABOLIC PANEL 2022-05-[address] [facility] 03:20:00 [facility] SARS-COV2/RT-PCR ([facility] & REF 2022-05-[address] [facility]) 17:00:00 [facility] Plan of Care Planned Activity Planned Date Details Comments Source Future Scheduled 2027-05-11 Lipid panel (procedure) [facility] 00:00:00 [code = 12340521] Medical Ce nter Future Scheduled 2027-05-11 Lipid panel (procedure) [facility] 00:00:00 [code = 01336784] Medical Ce nter Future Scheduled 2027-05-11 Lipid panel (procedure) [facility] 00:00:00 [code = 14458010] Medical Ce nter Future Scheduled 2027-05-11 Lipid panel (procedure) [facility] 00:00:00 [code = 06953870] Medical Ce nter Future Scheduled 2027-05-11 Lipid panel (procedure) [facility] 00:00:00 [code = 96519016] Medical Ce nter Future Scheduled 2027-05-11 Lipid panel (procedure) [facility] 00:00:00 [code = 09648077] Medical Ce nter Future Scheduled 2023-05-[address] [facility] 00:00:00 [facility] Screening (12+) [code = Tobacco Cessation Counseling and Screening (12+)] Future Scheduled 2023-05-[address] [facility] 00:00:00 [facility] Screening (12+) [code = Tobacco Cessation Counseling and Screening (12+)] Future Scheduled 2023-05-[address] [facility] 00:00:00 [facility] Screening (12+) [code = Tobacco Cessation Counseling and Screening (12+)] Future Scheduled 2023-05-[address] [facility] 00:00:00 (Season Ended) [code = [facility] INFLUENZA VACCINE (Season Ended)] Future Scheduled 2022-09-[address] [facility] 00:00:00 (12+) [code = Medical Center DEPRESSION SCREENING (12+)] Future Scheduled 2022-09-[address] [facility] 00:00:00 (12+) [code = Medical Center DEPRESSION SCREENING (12+)] Future Scheduled 2022-09-[address] [facility] 00:00:00 (12+) [code = Medical Center DEPRESSION SCREENING (12+)] Future Scheduled 2022-05-06 INFLUENZA VACCINE (#1) [facility] [...] [facility] 00:00:00 2) [code = [facility] Medical Center VACCINES (1 of 2)] Future Scheduled 2009-12-24 SHINGLES VACCINES ([address] [facility] 00:00:00 2) [code = [facility]INGLES Medical Center VACCINES (1 of 2)] Future Scheduled 2009-12-24 SHINGLES VACCINES ([address] [facility] 00:00:00 2) [code = [facility]LES Medical Center VACCINES (1 of 2)] Future Scheduled 2009-12-24 SHINGLES VACCINES ([address] [facility] 00:00:00 2) [code = [facility] Center VACCINES (1 of 2)] Future Scheduled 2009-12-24 SHINGLES VACCINES ([address] [facility] 00:00:00 2) [code = [facility] Medical Center VACCINES (1 of 2)] Future Scheduled 2009-12-24 SHINGLES VACCINES ([address] [facility] 00:00:00 2) [code = [facility]INGLES Medical Center VACCINES (1 of 2)] Future Scheduled [...] [facility] 00:00:00 [code = CT Colonography [facility] (combo)] Future Scheduled 1959 Screening for malignant [facility] 00:00:00 neoplasm of colon Medical Ce nter (procedure) [code = 125247785] Future Scheduled 1959 Screening for malignant [facility] 00:00:00 neoplasm of colon Medical Ce nter (procedure) [code = 624136573] Future Scheduled 1959 Screening for malignant [facility] 00:00:00 neoplasm of colon Medical Ce nter (procedure) [code = 137680736] Future Scheduled 1959 Screening for malignant [facility] 00:00:00 neoplasm of colon Medical Ce nter (procedure) [code = 171907012] Future Scheduled 1959 Sigmoidoscopy [code = [facility] Sigmoidoscopy] Medical Cente r Future Scheduled 1959 CT Colonography (combo) [facility] 00:00:00 [code = CT Colonography [facility] (combo)] Future Scheduled 1959 Screening for malignant [facility] 00:00:00 neoplasm of colon Medical Ce nter (procedure) [code = 708763371] Future Scheduled 1959 Screening for malignant [facility] 00:00:00 neoplasm of colon Medical Ce nter (procedure) [code = 957653817] Future Scheduled 1959 Screening for malignant [facility] 00:00:00 neoplasm of colon Medical Ce nter (procedure) [code = 381157283] Future Scheduled 1959 Screening for malignant [facility] 00:00:00 neoplasm of colon Medical Ce nter (procedure) [code = 937275833] Future Scheduled 1959 Sigmoidoscopy [code = [facility] 00:[facility] Sigmoidoscopy] Medical Cente r Future Scheduled 1959 CT Colonography (combo) [facility] 00:00:00 [code = CT Colonography [facility] (combo)] Future Scheduled 1959 Screening for malignant [facility] 00:00:00 neoplasm of colon Medical Ce nter (procedure) [code = 016467578] Future Scheduled 1959 Screening for malignant [facility] 00:00:00 neoplasm of colon Medical Ce nter (procedure) [code = 456224467] Future Scheduled 1959 Screening for malignant [facility] 00:00:00 neoplasm of colon Medical Ce nter (procedure) [code = 628683552] Future Scheduled 1959 Screening for malignant [facility] 00:00:00 neoplasm of colon Medical Ce nter (procedure) [code = 725813582] Future Scheduled 1959 Sigmoidoscopy [code = [facility] 00:[facility] Sigmoidoscopy] Medical Cente r Future Scheduled 1959 CT Colonography (combo) [facility] 00:00:00 [code = CT Colonography [facility] (combo)] Future Scheduled 1959 Screening for malignant [facility] 00:00:00 neoplasm of colon Medical Ce nter (procedure) [code = 417450343] Future Scheduled 1959 Screening for malignant [facility] 00:00:00 neoplasm of colon Medical Ce nter (procedure) [code = 838223562] Future Scheduled 1959 Screening for malignant [facility] 00:00:00 neoplasm of colon Medical Ce nter (procedure) [code = 056140126] Future Scheduled 1959 Screening for malignant [facility] 00:00:00 neoplasm of colon Medical Ce nter (procedure) [code = 087827758] Future Scheduled 1959 Sigmoidoscopy [code = [facility] 00:[facility] Sigmoidoscopy] Medical Arlenee r Future Scheduled 1959 CT Colonography (combo) [facility] 00:00:00 [code = CT Colonography [facility] (combo)] Future Scheduled 1959 Screening for malignant [facility] 00:00:00 neoplasm of colon Medical Ce nter (procedure) [code = 534381086] Future Scheduled 1959 Screening for malignant [facility] 00:00:00 neoplasm of colon Medical Ce nter (procedure) [code = 589930391] Future Scheduled 1959 Screening for malignant [facility] 00:00:00 neoplasm of colon Medical Ce nter (procedure) [code = 938360290] Future Scheduled 1959 Screening for malignant [facility] 00:00:00 neoplasm of colon Medical Ce nter (procedure) [code = 974309812] Future Scheduled 1959 Sigmoidoscopy [code = [facility] 00:[facility] Sigmoidoscopy] Medical Cente r Future Scheduled 1959 CT Colonography (combo) [facility] 00:00:00 [code = CT Colonography [facility] (combo)] Future Scheduled 1959 Screening for malignant [facility] 00:00:00 neoplasm of colon Medical Ce nter (procedure) [code = 770503862] Future Scheduled 1959 Screening for malignant [facility] 00:00:00 neoplasm of colon Medical Ce nter (procedure) [code = 776425882] Future Scheduled 1959 Screening for malignant [facility] 00:00:00 neoplasm of colon Medical Ce nter (procedure) [code = 443384665] Future Scheduled 1959 Screening for malignant [facility] 00:00:00 neoplasm of colon Medical Ce nter (procedure) [code = 257543285] Future Scheduled 1959 Sigmoidoscopy [code [facility] Sigmoidoscopy] Medical [facility] Encounters Start End Encounter Admission Attending Care Care Encounter Source Date/Time Date/Time Type Type Clinicians Facility Department ID 2022-05-14 [facility] [id number] [facility] 12:12:34 RADHA 2022-12-30 2022-12-30 Telephone Chris Brown 1.2.840.114 [id number] Univers 00:00:00 00:00:00 DEMI 350.1.13.10 it y of [address]686 [place] as [id number] [facility] 009 Branch 2022-11-29 2022-11-30 Outpatient X BEN [facility] [id number] Univers 14:07:00 18:00:00 HEIDI ity of [facility] 2022-11-29 2022-11-30 Emergency BillyeDniz ryan 1.2.840 .114 [id number] Univers 14:07:00 18:00:00 Heidi Lugo 350.1.13.10 ity [place] [address].7.2.686 [place] as [phone] [facility] 092 Branch 2022-10-22 2022-10-22 Orders Doctor JASON 1.2.840.114 [id number] [facility] [place] 00:00:00 00:00:00 Only UnassignedDEMI 350.1.13.10 ity of [place] [facility] 4.2.7.2.686 [place] as [id number] [facility] 009 Branch 2022-09-27 2022-09-27 Refdwayne Hendricksonsuzanne [facility] 1.2.840.114 [id number] Univers 00:00:00 00:00:00 Hamza PRIMARY 350.1.13.10 it [place] [id number] Mt dical 390 Branch 2022-09-25 2022-09-25 Orders Doctor JASON 1.2.840.114 [id number] Univers 00:00:00 00:00:00 Only Unassigned, DEMI 350.1.13.10 ity of [place] [facility] 4.2.7.2.686 [place] as [phone] [facility] 009 Branch 2022-08-17 2022-08-17 Orders Doctor JASON 1.2.840.114 [id number] Univers 00:00:00 00:00:00 Only Unassigned, DEMI 350.1.13.10 ity of [place] [facility] 4.2.7.2.686 [place] as [id number] [facility] 009 Branch 2022-08-09 2022-08-09 Transition MADHU Hutchison 1.2.840.114 [id number] Univers 00:00:00 00:00:00 of Care Tessa GONZALEZ 350.1.13.10 [place] [id number] [facility] 403 Branch 2022-07-26 2022-08-07 Inpatient U MIKAYLA [facility] [id number] Univers 12:58:00 11:23:00 KHANG ity of [facility] 2022-07-26 2022-08-07 Hospital Chris Romero 1.2.840.1 [id number] Univers 12:58:00 11:23:00 Encounter Khang Linares 85065.1.1 ity of 3.104.2.7 [place] .3.223265 Medica l .8 Branch 2022-08-06 2022-08-[address] Jason 1.2.840.0 [id number] Univers 14:02:30 14:02:30 Event Branden 23385.1.1 ity of 3.104.2.7 [place] .3.643817 Medica l .8 [place] 2022-08-06 2022-08-06 Travel 1.2.840.1 1.2.832.998 [id number] Univers 00:00:00 00:00:00 78238.1.1 350.1.13.10 ity of 3.104.2.7 4.[place]7.3.698 [place] .3.493304 084.8 Medica l .8 [place] 2022-07-29 2022-07-29 Case Petrmad, 1.2.840.9 [id number] Univers 00:00:00 00:00:00 Management Melvin 84283.1.1 i ty of 3.104.2.7 [place] .3.882208 Medica l .8 [place] 2022-07-28 2022-07-28 Anesthesia Darrell, 1.2.840.9 [id number] Univers 13:03:13 13:03:13 Event Yulissa Watts 19492.1.1 ity of 3.104.2.7 [place] .3.432592 Medica l .8 [place] 2022-07-26 2022-07-26 Outpatient Pollo [facility] [id number] Univers 00:00:00 00:00:00 HUNTER ity of [facility] 2022-07-26 2022-07-26 Travel 1.2.840.1 1.2.583.009 [id number] Univers 00:00:00 00:00:00 94133.1.1 350.1.13.10 ity of 3.104.2.7 4.[place]7.3.698 [place] .3.749620 084.8 Medica l .8 [place] 2022-07-12 2022-07-12 Outpatient R BEN [facility] [id number] Univers 11:15:00 13:52:11 HEIDI itmitchel of [facility] 2022-07-12 2022-07-12 Office Heidi Lugo 1.2.840.1 [id number] Univers 11:15:00 13:52:11 Visit Faculty, Surgery Transplant 14941.1.1 ity of 3.104.2.7 [place] .3.123359 Medica l .8 Branch 2022-07-12 2022-07-12 Travel 1.2.840.1 1.2.271.379 [id number] Univers 00:00:00 00:00:00 46468.1.1 350.1.13.10 ity of 3.104.2.7 4.[place]3.698 [place] .3.454940 084.8 Medica l .8 Branch 2022-07-09 2022-07-09 Emergency X BRITTA PALUÍS ERT [id number] Univers 16:28:00 22:52:00 CASIE ity of [facility] 2022-07-09 2022-07-09 Emergency Casie Callejas 1.2.840.1 [id number] Univers 16:28:00 22:52:00 Jose Elias Sheikh 61359.1.1 ity of 3.104.2.7 [place] .3.308920 Medica l .8 Branch 2022-07-09 2022-07-09 Travel 1.2.840.1 1.2.766.820 [id number] Univers 00:00:00 00:00:00 17651.1.1 350.1.13.10 ity of 3.104.2.7 [place].3.698 [place]3.927[place] 084.8 Medica l .8 Branch 2022-06-29 2022-06-29 Transition Hutchison, 1.2.840.4 [id number] Univers 00:00:00 00:00:00 of Care Tessa 01195.1.1 i ty of 3.104.2.7 [place] .3.420461 Medica l .8 Branch 2022-06-17 2022-06-27 [facility] Yoni Mckee 1.2.840.1 10 [id number] Univers 14:25:00 14:20:00 Chris Slater 08132.1.1 ity of Jeselesliekeara Heath Jay 3.104.2.7 [place] .3.916882 Medica l .8 Branch 2022-06-17 2022-06-27 Inpatient X [facility] [id number] Univers 14:25:00 14:20:00 HEATH ity of [facility] 2022-06-25 2022-06-25 Anesthesia KavitacarisaGomez 1.2.840.6 [id number] Univers 09:41:00 13:15:00 Event Yulissa Ramírez 82828.1.1 ity of 3.104.2.7 [place] .3.626549 Medica l .8 Branch 2022-06-24 2022-06-[address] [facility] [id number] [facility] 00:00:00 00:00:00 Only Nuvia Golisano [facility] 2022-06-23 2022-06-23 Anesthesia Botello, 1.2.840.1 [id number] [facility] [place] 09:51:00 11:14:00 Event Larisa 72880.1.1 [place] .3.1070[place] Medica l .8 Branch 2022-06-23 2022-06-23 Surgery Parupudi, 1.2.840.0 [id number] Univers 07:00:00 08:24:00 Goran 81587.1.1 ity of 3.104.2.7 [place] .3.432463 Medica l .8 Branch 2022-06-17 2022-06-17 Travel 1.2.840.1 1.2.746.462 [id number] Univers 00:00:00 00:00:00 06328.1.1 350.1.13.10 ity of 3.104.2.7 [place].3.698 [place] .3.061308 084.8 Medica l .8 Branch 2022-06-07 2022-06-09 Inpatient UR [facility] Medicine [id number] [facility] 16:25:00 13:05:00 2022-06-07 2022-06-09 [facility] UR Casie Johnson [facility] [id number] [facility] 16:25:00 13:05:00 Encounter [facility] 2022-05-31 2022-05-[address] [facility] [id number] [facility] 00:00[facility]00 00:00:00 ion Cheryl [facility] 2022-05-14 2022-05-19 Inpatient ER CHRISTEN, SLE Inter Rad [id number] [facility] 23:13:00 18:01:00 [facility] 2022-05-14 2022-05-19 [facility] ER Ayo Price [facility] [id number] [facility] 23:13:00 18:01:00 Encounter [facility]id[facility] Pappas [facility]09 2022-05-11 [facility] [id number] [facility] 13:34:00 16:33:00 SANDRA 2022-05-09 2022-05-11 [facility] UR Yue Moulton [facility] [id number] [address] 13:34:00 16:33:[address] [facility] 2022-05-10 2022-05-[address] [facility] [id number] [facility] 08:25:00 10:25:00 Event [facility] 2022-05-10 2022-05-10 Surgery Fam, [facility] [id number] [address] 08:00:00 09:14:00 [facility] 2022-05-09 2022-05-09 Outpatient [facility] [id number] [facility] 13:34:00 23:59:00 Shadi 2022-01-07 2022-01-07 [id number] [facility] 14:41:00 14:41:00 Ashvin Ward [facility] 2018-10-23 2018-10-23 Outpatient Robert Castillo [id number] Common 09:00:00 09:00:00 [facility] 2018-09-06 2018-09-06 Outpatient Robert Castillo 23 [id number] Common 16:13:00 16:13:00 t [facility] [address] Family - [facility] Family [facility] 2018-08-23 2018-08-23 Outpatient Robert Castillo 23 [id number] Common 14:30:00 14:30:00 t [facility] 2018-08-22 2018-08-22 Outpatient Robert Castillo 23 [id number] Common 15:00:00 15:00:00 t [facility] Results Test Description Test Time Test Comments Results Result Comments Source CBC WITH DIFF 2022-11-29 22:35:27 Test Item Value Reference Range Interpretation Comme nts WBC (test code = 6690-2) 5.42 See_Comment [A utomated message] The system which ge nerated this result transmit loki reference range: 4.20 - 1 0.70 10*3/?L. The reference r helen was not used to interpr et this result as normal/abnor mal. RBC (test code = 789-8) 4.83 See_Comment [Au tomated message] The system which [employer] nerated this result transmit loki reference range: 4.26 - 5 .52 10*6/?L. The reference r helen was not used to interpr et this result as normal/abnor mal. HGB (test code = 718-7) 14.4 g/dL 12.2-16.4 HCT (test code = 4544-3) 42.1 % 38.4-49.3 MCV (test code = 787-2) 87.2 fL 81.7-95.6 MCH (test code = 785-6) 29.8 pg 26.1-32.7 MCHC (test code = 786-4) 34.2 g/dL 31.2-35.0 RDW-SD (test code = 13831-6) 40.7 fL 38.5-51.6 RDW-CV (test code = 788-0) 12.8 % 12.1-15.4 PLT (test code = 777-3) 147 See_Comment L [Au tomated message] The system which ge nerated this result transmit loki reference range: 150 - 32 8 10*3/?L. The reference range was not used to interpret th is result as normal/abnormal . MPV (test code = 61047-5) 10.3 fL 9.8-13.0 NRBC/100 WBC (test code = 0.0 See_Comment [ Automated message] The [id number]) system which ge nerated this result transmit loki reference range: 0.0 - 10 .0 /100 WBCs. The reference r helen was not used to interpr et this result as normal/abnor mal. NRBC x10^3 (test code = See_Comment [Au tomated message] The 5504581994) system which ge nerated this result transmit loki reference range: 10*3/?L. The reference range was not u sed to interpret this result as normal/abnormal . GRAN MAT (NEUT) % (test code 54.7 % = 770-8) IMM GRAN % (test code = 0.90 % 0776276118) LYMPH % (test code = 736-9) 35.1 % MONO % (test code = 5905-5) 7.7 % EOS % (test code = 713-8) 0.9 % BASO % (test code = 706-2) 0.7 % GRAN MAT x10^3(ANC) (test 2.96 10*3/uL 1.99-6.95 code = 7442220489) IMM GRAN x10^3 (test code = 0.05 10*3/uL 0.00-0.06 2083716401) LYMPH x10^3 (test code = 1.90 10*3/uL 1.09-3.23 731-0) MONO x10^3 (test code = 0.42 10*3/uL 0.36-1.02 742-7) EOS x10^3 (test code = 0.05 10*3/uL 0.06-0.53 L 711-2) BASO x10^3 (test code = 0.04 10*3/uL 0.01-0.09 704-7) Lab Interpretation (test Abnormal code = 96326-7) [facility]. METABOLIC PANEL (33909)2022-11-29 22:31:04 Test Item Value Reference Range Interpretation Comments NA (test code = 139 mmol/L 135-145 6901655525) K (test code = 4.2 mmol/L 3.5-5.0 6465486115) CL (test code = 105 mmol/L 98-108 2529376287) CO2 TOTAL (test code = 25 mmol/L 23-31 1821899967) AGAP (test code = 9 2-16 8063699269) BUN (test code = 16 mg/dL 7-23 5340204921) GLUCOSE (test code = 83 mg/dL 70-110 6849058649) CREATININE (test code = 0.98 mg/dL 0.60-1.25 2754132262) TOTAL BILI (test code = 0.5 mg/dL 0.1-1.8 5886567953) CALCIUM (test code = 8.8 mg/dL 8.6-10.6 3890543212) T PROTEIN (test code = 6.7 g/dL 6.3-8.2 1069086512) ALBUMIN (test code = 4.2 g/dL 3.5-5.0 5979410798) ALK PHOS (test code = 434 U/L 34-122 H 0657826219) ALTv (test code = 101 U/L 5-50 H 1742-6) AST(SGOT) (test code = 85 U/L 13-40 H 7084967478) eGFR (test code = 77.5 mL/min/1.73m2 2099458526) JUAN DAVID (test code = JUAN DAVID) [...] tests). Lab Interpretation Abnormal (test code = 46429-9) [id number] 22:39:00 [facility] 1960 Sex: MFINAL REPORT Patient: Carrol Anne DDOB: 1960MRN: [id number] Accession number: [id number] CT, ABDOMEN \\T\\ PELVIS, WITH IV CONTRAST HISTORY: Bile leak COMPARISON: Outside CT abdomen pelvis 05/14/2022 TECHNIQUE: CT of the abdomen and pelvis WITH intravenous contrast. The examination was performed according to the departmental dose-optimization program, which includes automated exposure control, adjustment of the mA and/or kV according to patient size and/or use of iterative reconstruction technique. FINDINGS: Lower thorax: Unremarkable.Liver: Focal fat deposition along the falciformligament. Patchy geographic hyperattenuation in segment 7 and 8. A segment 7 1 cm elongated hypoattenuating focus (coronal image 56) and another punctate hypodensity in segment 7 (sagittal image 75) within these patchy regions of hyperattenuation, new from prior exam.Gallbladder and bile ducts: Surgically absent gallbladder. No biliary dilatation. A plastic extrahepatic bile duct stent. Pneumobilia. No extrahepatic or any central intrahepatic biliary ductal dilation.Spleen: Moderately enlarged.Pancreas: Unremarkable.Adrenals: UnremarkableKidneys and ureters: Unremarkable.Bowel: A few scattered colonic diverticula. Normal appendix.Bladder: Unremarkable.Reproductive organs: Moderate prostatomegaly.Ly mph nodes: Unremarkable.Peritoneum: Minimal residual rim-enhancing subhepatic fluid collection measures 2.6 x 1.2 cm, with perihepatic drain at the edge of the collection.Vessels: Mild atherosclerotic calcifications.Abdominal wall: Unremarkable.Bones: Unremarkable. IMPRESSION: 1.Inhomogeneous enhancement in the right hepatic lobe could be related to cholangitis, although nonspecific, please correlateclinically. 2.Segment 7 hepatic hypodensities within regions of hyperattenuating liver parenchyma are probably focal mildly dilated distal bile ducts or possibly tiny intrahepatic fluid collections. 3.Minimal residual rim- enhancing subhepatic fluid collection measures 2.6 x 1.2 cm, with perihepatic drain at the edge of the collection. 4.Cholecystectomy with biliary stent. Signed: [facility] Verified Date/Time: 09/14/2022 22:39:56 Electronically signed by: YAQUELIN OSORIO MD on 310:39 PM2D Echo W/Doppler(CW/PW/Color)2022-09-01 10:41:09Ejection FractionSLEH ECHO HEART[facility] W/Doppler(CW/PW/Color) 2022-09-01 10:41:09Ejection FractionSLEH ECHO [facility] W/Doppler(CW/PW/Color)2022-09-01 10:41:09Ejection FractionSLEH [facility]V [id number] 23:45:12 Test Item Value Reference Interpretation Comments Range SARS-COV2/RT-PCR Negative Negative The SARS-Co V-2 (test code = target nucleic 95020-6) acids are not detected in thi s [...] S ARS CoV-2 test is a rapid, real-charles e RT-PCR test intended for e qualitative detection of nucleic acid fr om SARS-CoV-2 in a nasopharyngeal swab specimen collec loki from individual s suspected of COVID-19 by the healthcare provider. Influenza A RT-PCR Negative Negative The Flu A target (test code = [place] 35757-5) not detected in this specimen. Influenza B RT-PCR Negative Negative The Flu B target (test code = nucleic acids [place] re 32714-8) not detected in this specimen. RSV by RT-PCR (test Negative Negative The RSV target code = 81339-1) nucleic acid s are not detected in this specimen. JUAN DAVID (test code = The presence of JUAN DAVID) SARS-CoV-2/FLU/RSV viral nucleic acids cannot rule out co-infections or disease caused by other viral or bacterial pathogens. As with any molecular test, mutations within the target regions of the Xpert Xpress SARS-CoV-2/Flu/RSV test could affect primer and/or probe binding resulting in failure to detect the presence of virus or the virus being detected less predictably. False negative results may occur if the virus is present at levels below the analytical limit of detection in this specimen. This Xpert Xpress SARS-CoV-2/Flu/RSV test is a rapid, real-time RT-PCR test intended for the qualitative detection of nucleic acid from Xpert Xpress SARS-CoV-2/Flu/RSV in a nasopharyngeal swab specimen collected from individuals suspected of Xpert Xpress SARS-CoV-2/Flu/RSV by their healthcare provider. Results from [facility] Xpert Xpress SARS-CoV-2/Flu/RSV test should be correlated with the clinical history, epidemiological data, and other data available to the clinician evaluating the patient. Viral nucleic acid may persist in vivo, independent of virus viability. Detection of analyte target(s) does not imply that the corresponding virus(es) are infectious or are the causative agents for clinical symptoms. This test has not been Food and Drug Administration (FDA) cleared or approved and has been authorized by FDA under an Emergency Use Authorization (EUA). This EUA will be effective until the declaration that circumstances exist justifying the authorization of the emergency use of in vitro diagnostic tests for detection and/or diagnosis of COVID-19 is terminated under Section 564(b)(2) of the Act or the EUA is revoked under Section 564(g) of the Act. Fact Sheet for Healthcare Providers:https://w RigUp/Docu ments/Xpert%20Xpres s%20SARS%20CoV-2/Fa ct%20Sheets/302-390 2%90ZVTW-KFJ-4%20HE ALTHCARE%20PROVIDER S%20FACT%20SHEET.pd f Fact Sheet for Healthcare Patients:https://[employer]/Docum ents/Xpert%20Xpress %20SARS%20Cov-2/Fac t%20Sheets/302-3801 %06ZBBN-HET-4%20PAT IENT%20FACT%20SHEET .pdfThe presence of SARS-CoV-2/FLU/RSV viral nucleic acids cannot rule out co-infections or disease caused by other viral or bacterial pathogens. As with any molecular test, mutations within the target regions of the Xpert Xpress SARS-CoV-2/Flu/RSV test could affect primer and/or probe binding resulting in failure to detect the presence of virus or the virus being detected less predictably. False negative results may occur if the virus is present at levels below the analytical limit of detection in this specimen. This Xpert Xpress SARS-CoV-2/Flu/RSV test is a rapid, real-time RT-PCR test intended for the qualitative detection of nucleic acid from Xpert Xpress SARS-CoV-2/Flu/RSV in a nasopharyngeal swab specimen collected from individuals suspected of Xpert Xpress SARS-CoV-2/Flu/RSV by their healthcare provider. Results from [facility] Xpert Xpress SARS-CoV-2/Flu/RSV test should be correlated with the clinical history, epidemiological data, and other data available to the clinician evaluating the patient. Viral nucleic acid may persist in vivo, independent of virus viability. Detection of analyte target(s) does not imply that the corresponding virus(es) are infectious or are the causative agents for clinical symptoms. This test has not been Food and Drug Administration (FDA) cleared or approved and has been authorized by FDA under an Emergency Use Authorization (EUA). This EUA will be effective until the declaration that circumstances exist justifying the authorization of the emergency use of in vitro diagnostic tests for detection and/or diagnosis of COVID-19 is terminated under Section 564(b)(2) of the Act or the EUA is revoked under Section 564(g) of the Act. Fact Sheet for Healthcare Providers:https://w [employer]Up/Docu ments/Xpert%20Xpres s%20SARS%20CoV-2/Fa ct%20Sheets/302-390 2%06FMZU-VEU-7%20HE ALTHCARE%20PROVIDER S%20FACT%20SHEET.pd f Fact Sheet for Healthcare Patients:https://[employer]/Docum ents/Xpert%20Xpress %20SARS%20Cov-2/Fac t%20Sheets/302-3801 %52RMZL-SHP-7%20PAT IENT%20FACT%20SHEET .pdf Lab Interpretation Normal (test code = 43193-4) [facility] [id number] 23:45:12 Test Item Value Reference Interpretation Comments Range SARS-COV2/RT-PCR Negative Negative The SARS-Co V-2 (test code = target nucleic 57834-1) acids are not detected in thi s [...] S ARS CoV-2 test is a rapid, real-charles e RT-PCR test intended for th e qualitative detection of nucleic acid fr om SARS-CoV-2 in a nasopharyngeal swab specimen collec loki from individual s suspected of COVID-19 by the ir healthcare provider. Influenza A RT-PCR Negative Negative The Flu A target (test code = [place] [address]-2) not detected in this specimen. Influenza B RT-PCR Negative Negative The Flu B target (test code = [place] 18770-8) not detected in this specimen. RSV by RT-PCR (test Negative Negative The RSV target code = 66407-8) nucleic acid s are not detected in this specimen. JUAN DAVID (test code = The presence of JUAN DAVID) SARS-CoV-2/FLU/RSV viral nucleic acids cannot rule out co-infections or disease caused by other viral or bacterial pathogens. As with any molecular test, mutations within the target regions of the Xpert Xpress SARS-CoV-2/Flu/RSV test could affect primer and/or probe binding resulting in failure to detect the presence of virus or the virus being detected less predictably. False negative results may occur if the virus is present at levels below the analytical limit of detection in this specimen. This Xpert Xpress SARS-CoV-2/Flu/RSV test is a rapid, real-time RT-PCR test intended for the qualitative detection of nucleic acid from Xpert Xpress SARS-CoV-2/Flu/RSV in a nasopharyngeal swab specimen collected from individuals suspected of Xpert Xpress SARS-CoV-2/Flu/RSV by their healthcare provider. Results from [facility] Xpert Xpress SARS-CoV-2/Flu/RSV test should be correlated with the clinical history, epidemiological data, and other data available to the clinician evaluating the patient. Viral nucleic acid may persist in vivo, independent of virus viability. Detection of analyte target(s) does not imply that the corresponding virus(es) are infectious or are the causative agents for clinical symptoms. This test has not been Food and Drug Administration (FDA) cleared or approved and has been authorized by FDA under an Emergency Use Authorization (EUA). This EUA will be effective until the declaration that circumstances exist justifying the authorization of the emergency use of in vitro diagnostic tests for detection and/or diagnosis of COVID-19 is terminated under Section 564(b)(2) of the Act or the EUA is revoked under Section 564(g) of the Act. Fact Sheet for Healthcare Providers:https://w Social[employer] Bean/Docu ments/Xpert%20Xpres s%20SARS%20CoV-2/Fa ct%20Sheets/302-390 2%51AZWS-SWX-4%20HE ALTHCARE%20PROVIDER S%20FACT%20SHEET.pd f Fact Sheet for Healthcare Patients:https://ww [employer]/Docum ents/Xpert%20Xpress %20SARS%20Cov-2/Fac t%20Sheets/302-3801 %15OSBW-TKO-0%20PAT IENT%20FACT%20SHEET .pdfThe presence of SARS-CoV-2/FLU/RSV viral nucleic acids cannot rule out co-infections or disease caused by other viral or bacterial pathogens. As with any molecular test, mutations within the target regions of the Xpert Xpress SARS-CoV-2/Flu/RSV test could affect primer and/or probe binding resulting in failure to detect the presence of virus or the virus being detected less predictably. False negative results may occur if the virus is present at levels below the analytical limit of detection in this specimen. This Xpert Xpress SARS-CoV-2/Flu/RSV test is a rapid, real-time RT-PCR test intended for the qualitative detection of nucleic acid from Xpert Xpress SARS-CoV-2/Flu/RSV in a nasopharyngeal swab specimen collected from individuals suspected of Xpert Xpress SARS-CoV-2/Flu/RSV by their healthcare provider. Results from [facility] Xpert Xpress SARS-CoV-2/Flu/RSV test should be correlated with the clinical history, epidemiological data, and other data available to the clinician evaluating the patient. Viral nucleic acid may persist in vivo, independent of virus viability. Detection of analyte target(s) does not imply that the corresponding virus(es) are infectious or are the causative agents for clinical symptoms. This test has not been Food and Drug Administration (FDA) cleared or approved and has been authorized by FDA under an Emergency Use Authorization (EUA). This EUA will be effective until the declaration that circumstances exist justifying the authorization of the emergency use of in vitro diagnostic tests for detection and/or diagnosis of COVID-19 is terminated under Section 564(b)(2) of the Act or the EUA is revoked under Section 564(g) of the Act. Fact Sheet for Healthcare Providers:https://w RigUp/Docu ments/Xpert%20Xpres s%20SARS%20CoV-2/Fa ct%20Sheets/302-390 2%68JHFK-BHQ-0%20HE ALTHCARE%20PROVIDER S%20FACT%20SHEET.pd f Fact Sheet for Healthcare Patients:https://ww [employer]/Docum ents/Xpert%20Xpress %20SARS%20Cov-2/Fac t%20Sheets/302-3801 %25AHMU-BRN-2%20PAT IENT%20FACT%20SHEET .pdf Lab Interpretation Normal (test code = 77347-8) [facility]V [id number] 23:45:12 Test Item Value Reference Interpretation Comments Range SARS-COV2/RT-PCR Negative Negative The SARS-Co V-2 (test code = target nucleic 92364-6) acids are not detected in thi s [...] S ARS CoV-2 test is a rapid, real-charles e RT-PCR test intended for e qualitative detection of nucleic acid fr om SARS-CoV-2 in a nasopharyngeal swab specimen [facility] from individual s suspected of COVID-19 by the ir healthcare provider. Influenza A RT-PCR Negative Negative The Flu A target (test code = [place] [address]-9) not detected in this specimen. Influenza B RT-PCR Negative Negative The Flu B target (test code = [place] 47551-6) not detected in this specimen. RSV by RT-PCR (test Negative Negative The RSV target code = 73690-5) nucleic acid s are not detected in this specimen. JUAN DAVID (test code = The presence of JUAN DAVID) SARS-CoV-2/FLU/RSV viral nucleic acids cannot rule out co-infections or disease caused by other viral or bacterial pathogens. As with any molecular test, mutations within the target regions of the Xpert Xpress SARS-CoV-2/Flu/RSV test could affect primer and/or probe binding resulting in failure to detect the presence of virus or the virus being detected less predictably. False negative results may occur if the virus is present at levels below the analytical limit of detection in this specimen. This Xpert Xpress SARS-CoV-2/Flu/RSV test is a rapid, real-time RT-PCR test intended for the qualitative detection of nucleic acid from Xpert Xpress SARS-CoV-2/Flu/RSV in a nasopharyngeal swab specimen collected from individuals suspected of Xpert Xpress SARS-CoV-2/Flu/RSV by their healthcare provider. Results from [facility] Xpert Xpress SARS-CoV-2/Flu/RSV test should be correlated with the clinical history, epidemiological data, and other data available to the clinician evaluating the patient. Viral nucleic acid may persist in vivo, independent of virus viability. Detection of analyte target(s) does not imply that the corresponding virus(es) are infectious or are the causative agents for clinical symptoms. This test has not been Food and Drug Administration (FDA) cleared or approved and has been authorized by FDA under an Emergency Use Authorization (EUA). This EUA will be effective until the declaration that circumstances exist justifying the authorization of the emergency use of in vitro diagnostic tests for detection and/or diagnosis of COVID-19 is terminated under Section 564(b)(2) of the Act or the EUA is revoked under Section 564(g) of the Act. Fact Sheet for Healthcare Providers:https://w [employer]Up/Docu ments/Xpert%20Xpres s%20SARS%20CoV-2/Fa ct%20Sheets/302-390 2%45EHCZ-XIS-8%20HE ALTHCARE%20PROVIDER S%20FACT%20SHEET.pd f Fact Sheet for Healthcare Patients:https://[employer]/Docum ents/Xpert%20Xpress %20SARS%20Cov-2/Fac t%20Sheets/302-3801 %82BPFW-YAK-6%20PAT IENT%20FACT%20SHEET .pdfThe presence of SARS-CoV-2/FLU/RSV viral nucleic acids cannot rule out co-infections or disease caused by other viral or bacterial pathogens. As with any molecular test, mutations within the target regions of the Xpert Xpress SARS-CoV-2/Flu/RSV test could affect primer and/or probe binding resulting in failure to detect the presence of virus or the virus being detected less predictably. False negative results may occur if the virus is present at levels below the analytical limit of detection in this specimen. This Xpert Xpress SARS-CoV-2/Flu/RSV test is a rapid, real-time RT-PCR test intended for the qualitative detection of nucleic acid from Xpert Xpress SARS-CoV-2/Flu/RSV in a nasopharyngeal swab specimen collected from individuals suspected of Xpert Xpress SARS-CoV-2/Flu/RSV by their healthcare provider. Results from [employer] Xpert Xpress SARS-CoV-2/Flu/RSV test should be correlated with the clinical history, epidemiological data, and other data available to the clinician evaluating the patient. Viral nucleic acid may persist in vivo, independent of virus viability. Detection of analyte target(s) does not imply that the corresponding virus(es) are infectious or are the causative agents for clinical symptoms. This test has not been Food and Drug Administration (FDA) cleared or approved and has been authorized by FDA under an Emergency Use Authorization (EUA). This EUA will be effective until the declaration that circumstances exist justifying the authorization of the emergency use of in vitro diagnostic tests for detection and/or diagnosis of COVID-19 is terminated under Section 564(b)(2) of the Act or the EUA is revoked under Section 564(g) of the Act. Fact Sheet for Healthcare Providers:https://[employer]/Docu ments/Xpert%20Xpres s%20SARS%20CoV-2/Fa ct%20Sheets/302-390 2%48OIAH-RZT-7%20HE ALTHCARE%20PROVIDER S%20FACT%20SHEET.pd f Fact Sheet for Healthcare Patients:https://[employer]/Docum ents/Xpert%20Xpress %20SARS%20Cov-2/Fac t%20Sheets/302-3801 %78CYRG-ORO-0%20PAT IENT%20FACT%20SHEET .pdf Lab Interpretation Normal (test code = 13901-1) [facility] PM-[id number] 23:45:12 Test Item Value Reference Range Interpretation Comments SARS-COV2/RT-PCR Negative Negative The SARS-Co V-2 target (test code = nucleic acids a re not 7868906) detected in thi s specimen. Negat prince results do not preclude SARS-CoV-2 infe ction and should not be u sed as the sole basis for patient management deci sions. Negative result s must be combined with c linical observations, p atient history, and epidemiological information. A false negative result may occur if a specimen i s improperly ian ected, transported or handled. This SARS CoV-2 test is a rapid, real-charles e RT-PCR test intended f or the qualitative det ection of nucleic acid fr om SARS-CoV-2 in a nasopharyngeal swab specimen collec loki from individuals una pected of COVID-[address] [facility] ide. INFLUENZA A RT-PCR Negative Negative The Flu A target nucleic (test code = acids are not d etected in 0861958) this specimen. INFLUENZA B RT-PCR Negative Negative The Flu B target nucleic (test code = acids are not d etected in 9769961) this specimen. RSV RT-PCR (test Negative Negative The RSV tar get nucleic code = 4331303) acids are no t detected in this specimen. The presence of SARS-CoV-2/FLU/RSV viral nucleic acids cannot rule out co- infections or disease caused by other viral or bacterial pathogens. As with any molecular test, mutations within the target regions of the Xpert Xpress SARS-CoV-2/Flu/RSV test could affect primer and/or probe binding resulting in failure to detect the presence of virus or the virus being detected less predictably. False negative results may occur if the virus is present at levels below the analytical limit of detection in thisspecimen.This Xpert Xpress SARS-CoV-2/Flu/RSV test is a rapid, real-time RT-PCR test intended for the qualitative detection of nucleic acid from Xpert Xpress SARS-CoV-2/Flu/RSV in a nasopharyngeal swabspecimen collected from individuals suspected of Xpert Xpress SARS-CoV-2/Flu/RSV by their healthcareprovider. Results from [facility] Xpert Xpress SARS-CoV-2/Flu/RSV test should be correlated with the clinical history, epidemiological data, and other data available to the clinician evaluating the patient. Viral nucleic acid may persist in vivo, independent of virus viability. Detection of analyte target(s)does not imply that the corresponding virus(es) are infectious or are the causative agents for clinical symptoms.This test has not been Food and Drug Administration (FDA) cleared or approved and has been authorized by FDA under an Emergency Use Authorization (EUA). This EUA will be effective until thedeclaration that circumstances exist justifying the authorization of the emergency use of in vitro diagnostic tests for detection and/or diagnosis of COVID-19 is terminated under Section 564(b)(2) of the Act or the EUA is revoked under Section 564(g) of the Act.Fact Sheet for Healthcare Providers:https ://www.[employer]/Documents/Xpert%20Xpress%20SARS%20CoV-2/Fact%20Sheets/302-390 2%05ZUDA-RBX-4%20HEALTHCARE%20PROVIDERS%20FACT%20SHEET.pdfFact Sheet for Healthcare Patients:https://www.[employer]/Docum ents/Xpert%20Xpress%20SARS%20Cov-2/Fact%20Sheets/302-3801%98EHVJ-XJY-8%20PATIENT %20FACT%20SHEET.pdfThe presence of SARS-CoV-2/FLU/RSV viral nucleic acids cannot rule out co-infections or disease causedby other viral or bacterial pathogens. As with any molecular test, mutations within the target regions of the Xpert Xpress SARS-CoV-2/Flu/RSV test could affect primer and/or probe binding resulting in failure to detect the presence of virus or the virus being detected less predictably. False negative results may occur if the virus is present at levels below the analytical limit of detection in this specimen.This Xpert Xpress SARS-CoV-2/Flu/RSV test is a rapid, real-time RT-PCR test intended for the qualitative detection of nucleic acid from Xpert Xpress SARS-CoV-2/Flu/RSV in a nasopharyngeal swab specimen collected from individuals suspected of Xpert Xpress SARS-CoV-2/Flu/RSV by their healthcare provider. Results from [employer] Xpert Xpress SARS-CoV-2/Flu/RSV test should be correlated with the clinicalhistory, epidemiological data, and other data available to the clinician evaluating the patient. Viral nucleic acid may persist in vivo, independent of virus viability. Detection of analyte target(s) does not imply that the corresponding virus(es) are infectious or are the causative agents for clinical symptoms.This test has not been Food and Drug Administration (FDA) cleared or approved and has been authorized by FDA under an Emergency Use Authorization (EUA). This EUA will be effective until the declaration that circumstances exist justifying the authorization of the emergency use of in vitro diagnostic tests for detection and/or diagnosis of COVID-19 is terminated under Section 564(b)(2) of theAct or the EUA is revoked under Section 564(g) of the Act.Fact Sheet for Healthcare Providers:https:/ /www.[employer]/Documents/Xpert%20Xpress%20SARS%20CoV-2/Fact%20Sheets/302-3902% 22FUGG-MPZ-9%20HEALTHCARE%20PROVIDERS%20FACT%20SHEET.pdfFact Sheet for Healthcare Patients:https://www.[employer]/Documen ts/Xpert%20Xpress%20SARS%20Cov-2/Fact%20Sheets/302-3801%56NOXO-COF-8%20PATIENT%2 0FACT%20SHEET.pdfLactic Acid Whole Hlzzo3483-55-20 12:44:43 Test Item Value Reference Range Interpretation Comments LACTIC ACID (test code = 1.06 mmol/L 0.50-2.20 1184293397) Lab Interpretation (test code = Normal 96682-0) [facility] Goofo4596-03-97 12:44:43 Test Item Value Reference Range Interpretation Comments LACTIC ACID (test code = 1.06 mmol/L 0.50-2.20 9003763976) Lab Interpretation (test code = Normal 18762-4) [facility] Dhbvy2592-14-31 12:44:43 Test Item Value Reference Range Interpretation Comments LACTIC ACID (test code = 1.06 mmol/L 0.50-2.20 5142792730) Lab Interpretation (test code = Normal 52109-1) [facility] CenterLaok[facility] Whole Rdoen2977-22-36 12:44:43 Test Item Value Reference Range Interpretation Comments LACTIC ACID (test code = 1.06 mmol/L 0.50-2.20 2265852832) Lab Interpretation (test code = Normal 28964-4) [facility] Kerxi1688-10-87 12:44:43 Test Item Value Reference Range Interpretation Comments LACTIC ACID (test code = 1.06 mmol/L 0.50-2.20 4330421416) Lab Interpretation (test code = Normal 05091-7) [facility] WITH [id number] 11:48:54 Test Item Value Reference Range Interpretation Comments WBC (test code = See_Comment [Automated 6690-2) message] The sy stem which generated this result transmitted reference range : 4.20 - 10.70 10*3/?L. The reference range was not used to interpret this result as normal/abnormal . RBC (test code = See_Comment [Automated 789-8) message] The sy stem which generated this result transmitted reference range : 4.26 - 5.52 10*6/?L. The reference range was not used to interpret this result as normal/abnormal . HGB (test code = 12.1 g/dL 12.2-16.4 L 718-7) HCT (test code = 35.7 % 38.4-49.3 L 4544-3) MCV (test code = 82.4 fL 81.7-95.6 787-2) MCH (test code = 27.9 pg 26.1-32.7 785-6) MCHC (test code = 33.9 g/dL 31.2-35.0 786-4) RDW-SD (test code = 39.4 fL 38.5-51.6 47550-1) RDW-CV (test code = 13.0 % 12.1-15.4 788-0) PLT (test code = See_Comment L [Automated 777-3) message] The sy stem which generated this result transmitted reference range : 150 - 328 10*3/ ?L. The reference r helen was not used to interpret this result as normal/abnormal . MPV (test code = 10.1 fL 9.8-13.0 16305-0) IPF % (test code = 4.1 % 1.2-10.7 Platelet count 6090499986) measured by fluorescence method. NRBC/100 WBC (test See_Comment [Automat ed code = 6257176303) message] The system which generated this result transmitted reference range : 0.0 - 10.0 /100 WBCs. The refer ence range was not u sed to interpret th is result as normal/abnormal . NRBC x10^3 (test code See_Comment [Auto mated = 2224280585) message] The s ystem which generated this result transmitted reference range : 10*3/?L. The reference range was not used to interpret this result as normal/abnormal . GRAN MAT (NEUT) % 77.2 % (test code = 770-8) IMM GRAN % (test code 0.30 % = 2643873730) LYMPH % (test code = 10.5 % 736-9) MONO % (test code = 11.4 % 5905-5) EOS % (test code = 0.3 % 713-8) BASO % (test code = 0.3 % 706-2) GRAN MAT x10^3(ANC) 5.64 10*3/uL 1.99-6.95 (test code = 8619244304) IMM GRAN x10^3 (test 0.00-0.06 code = 3327116883) LYMPH x10^3 (test code 0.77 10*3/uL 1.09-3.23 L = 731-0) MONO x10^3 (test code 0.83 10*3/uL 0.36-1.02 = 742-7) EOS x10^3 (test code = 0.06-0.53 L 711-2) BASO x10^3 (test code 0.01-0.09 = 704-7) BANDS (test code = Increased A 3014214529) Lab Interpretation Abnormal (test code = 18368-0) [facility] WITH [id number] 11:48:54 Test Item Value Reference Range Interpretation Comments WBC (test code = See_Comment [Automated 6690-2) message] The sy stem which generated this result transmitted reference range : 4.20 - 10.70 10*3/?L. The reference range was not used to interpret this result as normal/abnormal . RBC (test code = See_Comment [Automated 789-8) message] The sy stem which generated this result transmitted reference range : 4.26 - 5.52 10*6/?L. The reference range was not used to interpret this result as normal/abnormal . HGB (test code = 12.1 g/dL 12.2-16.4 L 718-7) HCT (test code = 35.7 % 38.4-49.3 L 4544-3) MCV (test code = 82.4 fL 81.7-95.6 787-2) MCH (test code = 27.9 pg 26.1-32.7 785-6) MCHC (test code = 33.9 g/dL 31.2-35.0 786-4) RDW-SD (test code = 39.4 fL 38.5-51.6 83589-8) RDW-CV (test code = 13.0 % 12.1-15.4 788-0) PLT (test code = See_Comment L [Automated 777-3) message] The sy stem which generated this result transmitted reference range : 150 - 328 10*3/ ?L. The reference r helen was not used to interpret this result as normal/abnormal . MPV (test code = 10.1 fL 9.8-13.0 32306-3) IPF % (test code = 4.1 % 1.2-10.7 Platelet count 7938188769) measured by fluorescence method. NRBC/100 WBC (test See_Comment [Automat ed code = 7856743466) message] The system which generated this result transmitted reference range : 0.0 - 10.0 /100 WBCs. The refer ence range was not u sed to interpret th is result as normal/abnormal . NRBC x10^3 (test code See_Comment [Auto mated = 3178512394) message] The s ystem which generated this result transmitted reference range : 10*3/?L. The reference range was not used to interpret this result as normal/abnormal . GRAN MAT (NEUT) % 77.2 % (test code = 770-8) IMM GRAN % (test code 0.30 % = 4704710481) LYMPH % (test code = 10.5 % 736-9) MONO % (test code = 11.4 % 5905-5) EOS % (test code = 0.3 % 713-8) BASO % (test code = 0.3 % 706-2) GRAN MAT x10^3(ANC) 5.64 10*3/uL 1.99-6.95 (test code = 7457481606) IMM GRAN x10^3 (test 0.00-0.06 code = 7322348304) LYMPH x10^3 (test code 0.77 10*3/uL 1.09-3.23 L = 731-0) MONO x10^3 (test code 0.83 10*3/uL 0.36-1.02 = 742-7) EOS x10^3 (test code = 0.06-0.53 L 711-2) BASO x10^3 (test code 0.01-0.09 = 704-7) BANDS (test code = Increased A 9349519825) Lab Interpretation Abnormal (test code = 07769-9) [facility] 11:41:40 Test Item Value Reference Range Interpretation Comments MAGNESIUM (test code = 4193904243) 1.8 mg/dL 1.7-2.4 Lab Interpretation (test code = Normal 18342-9) [facility]HEPAT[facility] FUN[facility] PAN[facility] (41530) (ALB,T.PRO,BILI T,BU/BC,ALT,AST,ALK PHOS)2022-07-29 11:41:40 Test Item Value Reference Range Interpretation Comments TOTAL BILI (test code = 2893924618) 0.7 mg/dL 0.1-1.1 BILI UNCON (test code = 6207129374) 0.3 mg/dL 0.1-1.1 BILI CONJ (test code = 6859628295) 0.0 mg/dL 0.0-0.3 T PROTEIN (test code = 3235047399) 5.7 g/dL 6.3-8.2 L ALBUMIN (test code = 4088160532) 3.3 g/dL 3.5-5.0 L ALK PHOS (test code = 7445405136) 228 U/L 34-122 H ALTv (test code = 1742-6) 41 U/L 5-50 AST(SGOT) (test code = 0411360827) 39 U/L 13-40 Lab Interpretation (test code = Abnormal 36492-8) [facility] METABOLIC PANEL (NA, K, CL, CO2, GLUCOSE, BUN, CREATININE, CA)2022-07-29 11:41:40 Test Item Value Reference Range Interpretation Comments NA (test code = 132 mmol/L 135-145 L 1769392586) K (test code = 3.4 mmol/L 3.5-5.0 L 0882659319) CL (test code = 94 mmol/L 98-108 L 5430943170) CO2 TOTAL (test code = 30 mmol/L 23-31 4605582024) AGAP (test code = 2-16 5166492634) BUN (test code = 11 mg/dL 7-23 4557161605) GLUCOSE (test code = 95 mg/dL 70-110 4953261446) CREATININE (test code = 0.70 mg/dL 0.60-1.25 4220882234) CALCIUM (test code = 8.3 mg/dL 8.6-10.6 L 9542833156) eGFR (test code = mL/min/1.73m2 7732601427) JUAN DAVID (test code = JUAN DAVID) [...] tests). Lab Interpretation Abnormal (test code = 90997-1) [facility] 11[facility] Test Item Value Reference Range Interpretation Comments MAGNESIUM (test code = 0781595279) 1.8 mg/dL 1.7-2.4 Lab Interpretation (test code = Normal 11902-8) [facility] (08536[facility] (ALB,T.PRO,BILI T,BU/BC,ALT,AST,ALK PHOS)2022-07-29 11:41:40 Test Item Value Reference Range Interpretation Comments TOTAL BILI (test code = 0804889722) 0.7 mg/dL 0.1-1.1 BILI UNCON (test code = 1669328705) 0.3 mg/dL 0.1-1.1 BILI CONJ (test code = 3852499245) 0.0 mg/dL 0.0-0.3 T PROTEIN (test code = 8922969992) 5.7 g/dL 6.3-8.2 L ALBUMIN (test code = 3482393882) 3.3 g/dL 3.5-5.0 L ALK PHOS (test code = 5746116321) 228 U/L 34-122 H ALTv (test code = 1742-6) 41 U/L 5-50 AST(SGOT) (test code = 5514868447) 39 U/L 13-40 Lab Interpretation (test code = Abnormal 04097-7) [facility] 11:41:40 Test Item Value Reference Range Interpretation Comments MAGNESIUM (test code = 1844150395) 1.8 mg/dL 1.7-2.4 Lab Interpretation (test code = Normal 98044-4) [facility] (50615[facility] (ALB,T.PRO,BILI T,BU/BC,ALT,AST,ALK PHOS)2022-07-29 11:41:40 Test Item Value Reference Range Interpretation Comments TOTAL BILI (test code = 0094657573) 0.7 mg/dL 0.1-1.1 BILI UNCON (test code = 3240732772) 0.3 mg/dL 0.1-1.1 BILI CONJ (test code = 2421501852) 0.0 mg/dL 0.0-0.3 T PROTEIN (test code = 3658705285) 5.7 g/dL 6.3-8.2 L ALBUMIN (test code = 5500108052) 3.3 g/dL 3.5-5.0 L ALK PHOS (test code = 8878556558) 228 U/L 34-122 H ALTv (test code = 1742-6) 41 U/L 5-50 AST(SGOT) (test code = 6825505805) 39 U/L 13-40 Lab Interpretation (test code = Abnormal 36427-7) [facility] 11:41:40 Test Item Value Reference Range Interpretation Comments MAGNESIUM (test code = 1723252266) 1.8 mg/dL 1.7-2.4 Lab Interpretation (test code = Normal 27271-8) [facility] (29708) (ALB,T.PRO,BILI T,BU/BC,ALT,AST,ALK PHOS)2022-07-29 11:41:40 Test Item Value Reference Range Interpretation Comments TOTAL BILI (test code = 5106974145) 0.7 mg/dL 0.1-1.1 BILI UNCON (test code = 8727550988) 0.3 mg/dL 0.1-1.1 BILI CONJ (test code = 9613804660) 0.0 mg/dL 0.0-0.3 T PROTEIN (test code = 9506168153) 5.7 g/dL 6.3-8.2 L ALBUMIN (test code = 4871024403) 3.3 g/dL 3.5-5.0 L ALK PHOS (test code = 8164031948) 228 U/L 34-122 H ALTv (test code = 1742-6) 41 U/L 5-50 AST(SGOT) (test code = 6314956013) 39 U/L 13-40 Lab Interpretation (test code = Abnormal 25562-6) [facility] METABOLIC PANEL (NA, K, CL, CO2, GLUCOSE, BUN, CREATININE, CA)2022-07-29 11:41:40 Test Item Value Reference Range Interpretation Comments NA (test code = 132 mmol/L 135-145 L 3746899527) K (test code = 3.4 mmol/L 3.5-5.0 L 5529771009) CL (test code = 94 mmol/L 98-108 L 3416642957) CO2 TOTAL (test code = 30 mmol/L 23-31 3779911420) AGAP (test code = 2-16 7416915872) BUN (test code = 11 mg/dL 7-23 7226337748) GLUCOSE (test code = 95 mg/dL 70-110 8321769607) CREATININE (test code = 0.70 mg/dL 0.60-1.25 4384382317) CALCIUM (test code = 8.3 mg/dL 8.6-10.6 L 9892524166) eGFR (test code = mL/min/1.73m2 3609057146) JUAN DAVID (test code = JUAN DAVID) [...] tests). Lab Interpretation Abnormal (test code = 49194-9) [facility] 11:41:40 Test Item Value Reference Range Interpretation Comments MAGNESIUM (test code = 7701503551) 1.8 mg/dL 1.7-2.4 Lab Interpretation (test code = Normal 94803-3) [facility] (91450[facility] (ALB,T.PRO,BILI T,BU/BC,ALT,AST,ALK PHOS)2022-07-29 11:41:40 Test Item Value Reference Range Interpretation Comments TOTAL BILI (test code = 9781507715) 0.7 mg/dL 0.1-1.1 BILI UNCON (test code = 5431058556) 0.3 mg/dL 0.1-1.1 BILI CONJ (test code = 7707460531) 0.0 mg/dL 0.0-0.3 T PROTEIN (test code = 4983230082) 5.7 g/dL 6.3-8.2 L ALBUMIN (test code = 7294712429) 3.3 g/dL 3.5-5.0 L ALK PHOS (test code = 0095445615) 228 U/L 34-122 H ALTv (test code = 1742-6) 41 U/L 5-50 AST(SGOT) (test code = 1191497340) 39 U/L 13-40 Lab Interpretation (test code = Abnormal 57507-9) [facility] (30615) (ALB,T.PRO,BILI T,BU/BC,ALT,AST,ALK PHOS)2022-07-29 11:41:40 Test Item Value Reference Range Interpretation Comments TOTAL BILI (test code = 5485817207) 0.7 mg/dL 0.1-1.1 BILI UNCON (test code = 9701642850) 0.3 mg/dL 0.1-1.1 BILI CONJ (test code = 1100033844) 0.0 mg/dL 0.0-0.3 T PROTEIN (test code = 6287175664) 5.7 g/dL 6.3-8.2 L ALBUMIN (test code = 3711999478) 3.3 g/dL 3.5-5.0 L ALK PHOS (test code = 4141309941) 228 U/L 34-122 H ALTv (test code = 1742-6) 41 U/L 5-50 AST(SGOT) (test code = 9894661812) 39 U/L 13-40 Lab Interpretation (test code = Abnormal 22373-0) [facility] 19:51:23 Test Item Value Reference Range Interpretation Comments LIPASE (test code = 3116168249) 562 U/L 0-220 H Lab Interpretation (test code = Abnormal 00109-3) [facility] 19:51:23 Test Item Value Reference Range Interpretation Comments LIPASE (test code = 5484152536) 562 U/L 0-220 H Lab Interpretation (test code = Abnormal 06319-5) [facility] 19:51:23 Test Item Value Reference Range Interpretation Comments LIPASE (test code = 3646461028) 562 U/L 0-220 H Lab Interpretation (test code = Abnormal 54046-4) [facility] 19:51:23 Test Item Value Reference Range Interpretation Comments LIPASE (test code = 9073180294) 562 U/L 0-220 H Lab Interpretation (test code = Abnormal 98398-0) [facility] 19:51:23 Test Item Value Reference Range Interpretation Comments LIPASE (test code = 7634099528) 562 U/L 0-220 H Lab Interpretation (test code = Abnormal 87340-3) [facility] 19:51:23 Test Item Value Reference Range Interpretation Comments LIPASE (test code = 1073633162) 562 U/L 0-220 H Lab Interpretation (test code = Abnormal 29032-3) [facility]CB with Rbledmrbpsiz3804-63-51 09:03:27 Test Item Value Reference Range Interpretation Comments [...] as normal/abnormal . HGB (test code = 10.5 g/dL 12.2-16.4 L 718-7) HCT (test code = 31.6 % 38.4-49.3 L 4544-3) MCV (test code = 84.3 fL 81.7-95.6 787-2) MCH (test code = 28.0 pg 26.1-32.7 785-6) MCHC (test code = 33.2 g/dL 31.2-35.0 786-4) RDW-SD (test code = 41.0 fL 38.5-51.6 26614-7) RDW-CV (test code = 13.2 % 12.1-15.4 788-0) PLT (test code = See_Comment L [Automated 777-3) message] The sy stem which generated this result transmitted reference range : 150 - 328 10*3/ ?L. The reference r helen was not used to interpret this result as normal/abnormal . MPV (test code = 10.7 fL 9.8-13.0 79715-2) IPF % (test code = 3.4 % 1.2-10.7 Platelet count 5928195406) measured by fluorescence method. NRBC/100 WBC (test See_Comment [Automat ed code = 8127069307) message] The system which generated this result transmitted reference range : 0.0 - 10.0 /100 WBCs. The refer ence range was not u sed to interpret th is result as normal/abnormal . NRBC x10^3 (test code See_Comment [Auto mated = 6123450033) message] The s ystem which generated this result transmitted reference range : 10*3/?L. The reference range was not used to interpret this result as normal/abnormal . GRAN MAT (NEUT) % 78.0 % (test code = 770-8) IMM GRAN % (test code 0.20 % = 0805177822) LYMPH % (test code = 12.7 % 736-9) MONO % (test code = 8.9 % 5905-5) EOS % (test code = 0.0 % 713-8) BASO % (test code = 0.2 % 706-2) GRAN MAT x10^3(ANC) 3.75 10*3/uL 1.99-6.95 (test code = 9071189289) IMM GRAN x10^3 (test 0.00-0.06 code = 1417282650) LYMPH x10^3 (test code 0.61 10*3/uL 1.09-3.23 L = 731-0) MONO x10^3 (test code 0.43 10*3/uL 0.36-1.02 = 742-7) EOS x10^3 (test code = 0.06-0.53 L 711-2) BASO x10^3 (test code 0.01-0.09 = 704-7) Lab Interpretation Abnormal (test code = 12003-3) [facility] (50398[facility]TOTAL CHOLESTEROL, TRIGLYCERIDES, HDL)2022-07-27 08:49:01 Test Item Value Reference Range Interpretation Comments CHOL (test code = 108 mg/dL 120-200 L 0980172280) HDL (test code = 33 mg/dL See_Comment L [Automated message] 7115446032) The system [employer] generated this result transmit loki reference range : >=40. The refer ence range was not u sed to interpret th is result as normal/abnormal . HDLC RATIO (test code = See_Comment [Au tomated message] 7820055382) The system [employer] generated this result transmit loki reference range : <=5.0. The refe rence range was not u sed to interpret th is result as normal/abnormal . TRIG (test code = 115 mg/dL 30-170 1602717945) LDL CHOL (test code = 52 mg/dL See_Comment [Auto mated message] 86653-1) The system [employer] generated this result transmit loki reference range : <=160. The refe rence range was not u sed to interpret th is result as normal/abnormal . VLDL (test code = 23 mg/dL 5-60 [id number]) Lab Interpretation (test Abnormal code = 79284-5) [facility]TOTAL CHOLESTEROL, TRIGLYCERIDES, HDL)2022-07-27 08:49:01 Test Item Value Reference Range Interpretation Comments CHOL (test code = 108 mg/dL 120-200 L 5611477503) HDL (test code = 33 mg/dL See_Comment L [Automated message] 8086473198) The system [employer] generated this result transmit loki reference range : >=40. The refer ence range was not u sed to interpret th is result as normal/abnormal . HDLC RATIO (test code = See_Comment [Au tomated message] 7354920024) The system [employer] generated this result transmit loki reference range : <=5.0. The refe rence range was not u sed to interpret th is result as normal/abnormal . TRIG (test code = 115 mg/dL 30-170 5177823021) LDL CHOL (test code = 52 mg/dL See_Comment [Auto mated message] 47861-7) The system [employer] generated this result transmit loki reference range : <=160. The refe rence range was not u sed to interpret th is result as normal/abnormal . VLDL (test code = 23 mg/dL 5-60 7818838659) Lab Interpretation (test Abnormal code = 81885-7) [facility]02560)(TOTAL CHOLESTEROL, TRIGLYCERIDES, HDL)2022-07-27 08:49:01 Test Item Value Reference Range Interpretation Comments CHOL (test code = 108 mg/dL 120-200 L 4650122241) HDL (test code = 33 mg/dL See_Comment L [Automated message] 1940092550) The system [employer] generated this result transmit loki reference range : >=40. The refer ence range was not u sed to interpret th is result as normal/abnormal . HDLC RATIO (test code = See_Comment [Au tomated message] 2722107292) The system [employer] generated this result transmit loki reference range : <=5.0. The refe rence range was not u sed to interpret th is result as normal/abnormal . TRIG (test code = 115 mg/dL 30-170 0510078786) LDL CHOL (test code = 52 mg/dL See_Comment [Auto mated message] 60007-1) The system [employer] generated this result transmit loki reference range : <=160. The refe rence range was not u sed to interpret th is result as normal/abnormal . VLDL (test code = 23 mg/dL 5-60 6715430630) Lab Interpretation (test Abnormal code = 89121-5) [facility] (75262)(TOTAL CHOLESTEROL, TRIGLYCERIDES, HDL)2022-07-27 08:49:01 Test Item Value Reference Range Interpretation Comments CHOL (test code = 108 mg/dL 120-200 L 4015629850) HDL (test code = 33 mg/dL See_Comment L [Automated message] 2448717596) The system [employer] generated this result transmit loki reference range : >=40. The refer ence range was not u sed to interpret th is result as normal/abnormal . HDLC RATIO (test code = See_Comment [Au tomated message] 3428758117) The system [employer] generated this result transmit loki reference range : <=5.0. The refe rence range was not u sed to interpret th is result as normal/abnormal . TRIG (test code = 115 mg/dL 30-170 0539693672) LDL CHOL (test code = 52 mg/dL See_Comment [Auto mated message] 14795-5) The system [employer] generated this result transmit loki reference range : <=160. The refe rence range was not u sed to interpret th is result as normal/abnormal . VLDL (test code = 23 mg/dL 5-60 1575076612) Lab Interpretation (test Abnormal code = 41745-7) [facility] (NA, K, CL, CO2, GLUCOSE, BUN, CREATININE, CA)2022-07-27 08:49:01 Test Item Value Reference Range Interpretation Comments NA (test code = 131 mmol/L 135-145 L 0092453859) K (test code = 3.5 mmol/L 3.5-5.0 0792250133) CL (test code = 99 mmol/L 98-108 7006770253) CO2 TOTAL (test code = 26 mmol/L 23-31 6105465908) AGAP (test code = 2-16 3021683514) BUN (test code = 12 mg/dL 7-23 0686222908) GLUCOSE (test code = 84 mg/dL 70-110 5752154319) CREATININE (test code = 0.71 mg/dL 0.60-1.25 5887198089) CALCIUM (test code = 8.2 mg/dL 8.6-10.6 L 7228907580) eGFR (test code = mL/min/1.73m2 9816214673) JUAN DAVID (test code = JUAN DAVID) [...] tests). Lab Interpretation Abnormal (test code = 23781-3) [facility] CenterMagnesium [id number] 08:49:01 Test Item Value Reference Range Interpretation Comments MAGNESIUM (test code = 9484827784) 1.9 mg/dL 1.7-2.4 Lab Interpretation (test code = Normal 86144-6) [facility] (57117)(TOTAL CHOLESTEROL, TRIGLYCERIDES, HDL)2022-07-27 08:49:01 Test Item Value Reference Range Interpretation Comments CHOL (test code = 108 mg/dL 120-200 L 7003057075) HDL (test code = 33 mg/dL See_Comment L [Automated message] 6591016760) The system [employer] generated this result transmit loki reference range : >=40. The refer ence range was not u sed to interpret th is result as normal/abnormal . HDLC RATIO (test code = See_Comment [Au tomated message] 1048446815) The system [employer] generated this result transmit loki reference range : <=5.0. The refe rence range was not u sed to interpret th is result as normal/abnormal . TRIG (test code = 115 mg/dL 30-170 4571824517) LDL CHOL (test code = 52 mg/dL See_Comment [Auto mated message] 37883-8) The system [employer] generated this result transmit loki reference range : <=160. The refe rence range was not u sed to interpret th is result as normal/abnormal . VLDL (test code = 23 mg/dL 5-60 8693261671) Lab Interpretation (test Abnormal code = 25428-8) [facility] (64761)(TOTAL CHOLESTEROL, TRIGLYCERIDES, HDL)2022-07-27 08:49:01 Test Item Value Reference Range Interpretation Comments CHOL (test code = 108 mg/dL 120-200 L 4565497117) HDL (test code = 33 mg/dL See_Comment L [Automated message] 1799890612) The system [employer] generated this result transmit loki reference range : >=40. The refer ence range was not u sed to interpret th is result as normal/abnormal . HDLC RATIO (test code = See_Comment [Au tomated message] 3197798154) The system [employer] generated this result transmit loki reference range : <=5.0. The refe rence range was not u sed to interpret th is result as normal/abnormal . TRIG (test code = 115 mg/dL 30-170 1993551268) LDL CHOL (test code = 52 mg/dL See_Comment [Auto mated message] 52888-0) The system [employer] generated this result transmit loki reference range : <=160. The refe rence range was not u sed to interpret th is result as normal/abnormal . VLDL (test code = 23 mg/dL 5-60 0470515875) Lab Interpretation (test Abnormal code = 86167-6) [facility] CenterRAD[facility]OM[facility]/KUB, 1 VIEW [id number] 00:13:00 [facility] 1960 Sex: MFINAL REPORT Patient Name: Carrol AnneDOB: 1960MRN: [id number]: Abdomen, single viewExam date/time: 06/08/2022 at 5:37 PMDowntime AN#:[id number] Examination was dictated during a downtime event. TECHNIQUE: Supine AP view of the abdomen on two radiographs. INDICATION: Dobbhoff placement. COMPARISON: None. FINDINGS:Feeding tube is looped within the gastric lumen with tip projected in the region of the gastric pylorus/proximal duodenum. Percutaneous catheter projected near midline within the right upper abdomen. Cholecystectomy clips are present. Common bile duct stent is present. N onobstructive bowel gas pattern. IMPRESSION: 1. Feeding tube tip projected in the region of the gastric pylorus/proximal duodenum.2. Common bile duct stent is present. Percutaneous catheter just medialto the common bile duct stent.3. Nonobstructive bowel gas pattern. Signed: Cindy Alcala MDReport Verified Date/Time: 07/15/2022 00:13:30 [id number] 23:08:54 Test Item Value Reference Range Interpretation Comments LIPASE (test code = 0776153003) 171 U/L 0-220 Lab Interpretation (test code = Normal 61577-2) [facility]. METABOLIC PANEL (87781)2022-07-09 23:08:53 Test Item Value Reference Range Interpretation Comments NA (test code = 136 mmol/L 135-145 5008120556) K (test code = 3.9 mmol/L 3.5-5.0 2555324472) CL (test code = 99 mmol/L 98-108 0135135834) CO2 TOTAL (test code = 26 mmol/L 23-31 7779343642) AGAP (test code = 2-16 1022961688) BUN (test code = 14 mg/dL 7-23 9344899660) GLUCOSE (test code = 112 mg/dL 70-110 H 6277659419) CREATININE (test code = 0.76 mg/dL 0.60-1.25 0659580586) TOTAL BILI (test code = 0.4 mg/dL 0.1-1.6 1207529753) CALCIUM (test code = 8.7 mg/dL 8.6-10.6 4945399507) T PROTEIN (test code = 6.3 g/dL 6.3-8.2 5030011942) ALBUMIN (test code = 3.6 g/dL 3.5-5.0 0407247381) ALK PHOS (test code = 233 U/L 34-122 H 0591899655) ALTv (test code = 37 U/L 5-50 1742-6) AST(SGOT) (test code = 32 U/L 13-40 8499656671) eGFR (test code = mL/min/1.73m2 9790060814) JUAN DAVID (test code = JUAN DAVID) [...] tests). Lab Interpretation Abnormal (test code = 41282-2) [facility] Center[facility]. [facility]OLIC PAN[facility] (97262)2022-07-09 23:08:53 Test Item Value Reference Range Interpretation Comments NA (test code = 136 mmol/L 135-145 0707853043) K (test code = 3.9 mmol/L 3.5-5.0 4537143597) CL (test code = 99 mmol/L 98-108 3014943052) CO2 TOTAL (test code = 26 mmol/L 23-31 5257001045) AGAP (test code = 2-16 5737654046) BUN (test code = 14 mg/dL 7-23 4075604823) GLUCOSE (test code = 112 mg/dL 70-110 H 3955335644) CREATININE (test code = 0.76 mg/dL 0.60-1.25 0338315377) TOTAL BILI (test code = 0.4 mg/dL 0.1-1.2 7098969691) CALCIUM (test code = 8.7 mg/dL 8.6-10.6 2046046459) T PROTEIN (test code = 6.3 g/dL 6.3-8.2 7601676617) ALBUMIN (test code = 3.6 g/dL 3.5-5.0 0120005328) ALK PHOS (test code = 233 U/L 34-122 H 0778931723) ALTv (test code = 37 U/L 5-50 1742-6) AST(SGOT) (test code = 32 U/L 13-40 3626737931) eGFR (test code = mL/min/1.73m2 2712822341) JUAN DAVID (test code = JUAN DAVID) [...] tests). Lab Interpretation Abnormal (test code = 54256-6) [facility]. METABOLIC PANEL (83184)2022-07-09 23:08:53 Test Item Value Reference Range Interpretation Comments NA (test code = 136 mmol/L 135-145 2666720438) K (test code = 3.9 mmol/L 3.5-5.0 4284534264) CL (test code = 99 mmol/L 98-108 0773136179) CO2 TOTAL (test code = 26 mmol/L 23-31 2091076818) AGAP (test code = 2-16 9665994594) BUN (test code = 14 mg/dL 7-23 9149611202) GLUCOSE (test code = 112 mg/dL 70-110 H 5918213730) CREATININE (test code = 0.76 mg/dL 0.60-1.25 2463259565) TOTAL BILI (test code = 0.4 mg/dL 0.1-1.8 3657185166) CALCIUM (test code = 8.7 mg/dL 8.6-10.6 0926878088) T PROTEIN (test code = 6.3 g/dL 6.3-8.2 4345631468) ALBUMIN (test code = 3.6 g/dL 3.5-5.0 3312112866) ALK PHOS (test code = 233 U/L 34-122 H 5839370861) ALTv (test code = 37 U/L 5-50 1742-6) AST(SGOT) (test code = 32 U/L 13-40 7556359768) eGFR (test code = mL/min/1.73m2 0258285662) JUAN DAVID (test code = JUAN DAVID) [...] tests). Lab Interpretation Abnormal (test code = 58686-1) [facility]. METABOLIC PANEL (77850)2022-07-09 23:08:53 Test Item Value Reference Range Interpretation Comments NA (test code = 136 mmol/L 135-145 8765907344) K (test code = 3.9 mmol/L 3.5-5.0 3536866770) CL (test code = 99 mmol/L 98-108 4055525675) CO2 TOTAL (test code = 26 mmol/L 23-31 8500043318) AGAP (test code = 2-16 5595171112) BUN (test code = 14 mg/dL 7-23 7396138932) GLUCOSE (test code = 112 mg/dL 70-110 H 2626037847) CREATININE (test code = 0.76 mg/dL 0.60-1.25 7640020644) TOTAL BILI (test code = 0.4 mg/dL 0.1-1.4 3020366915) CALCIUM (test code = 8.7 mg/dL 8.6-10.6 7484912216) T PROTEIN (test code = 6.3 g/dL 6.3-8.2 1538883357) ALBUMIN (test code = 3.6 g/dL 3.5-5.0 9800169848) ALK PHOS (test code = 233 U/L 34-122 H 9390729994) ALTv (test code = 37 U/L 5-50 1742-6) AST(SGOT) (test code = 32 U/L 13-40 9433857645) eGFR (test code = mL/min/1.73m2 5818148280) JUAN DAVID (test code = JUAN DAVID) [...] tests). Lab Interpretation Abnormal (test code = 29188-9) [facility]. METABOLIC PANEL (85242)2022-07-09 23:08:53 Test Item Value Reference Range Interpretation Comments NA (test code = 136 mmol/L 135-145 6980956409) K (test code = 3.9 mmol/L 3.5-5.0 4145561650) CL (test code = 99 mmol/L 98-108 0744021027) CO2 TOTAL (test code = 26 mmol/L 23-31 9099828046) AGAP (test code = 2-16 9449179802) BUN (test code = 14 mg/dL 7-23 2996861102) GLUCOSE (test code = 112 mg/dL 70-110 H 1588396486) CREATININE (test code = 0.76 mg/dL 0.60-1.25 7585216378) TOTAL BILI (test code = 0.4 mg/dL 0.1-1.9 6343265204) CALCIUM (test code = 8.7 mg/dL 8.6-10.6 9534527714) T PROTEIN (test code = 6.3 g/dL 6.3-8.2 2131972849) ALBUMIN (test code = 3.6 g/dL 3.5-5.0 8826721464) ALK PHOS (test code = 233 U/L 34-122 H 3541610938) ALTv (test code = 37 U/L 5-50 1742-6) AST(SGOT) (test code = 32 U/L 13-40 8992882937) eGFR (test code = mL/min/1.73m2 1770781751) JUAN DAVID (test code = JUAN DAVID) [...] tests). Lab Interpretation Abnormal (test code = 03327-5) [facility]. METABOLIC PANEL (62527)2022-07-09 23:08:53 Test Item Value Reference Range Interpretation Comments NA (test code = 136 mmol/L 135-145 9599269389) K (test code = 3.9 mmol/L 3.5-5.0 9945895164) CL (test code = 99 mmol/L 98-108 9665477954) CO2 TOTAL (test code = 26 mmol/L 23-31 3810252594) AGAP (test code = 2-16 1298106184) BUN (test code = 14 mg/dL 7-23 5760000198) GLUCOSE (test code = 112 mg/dL 70-110 H 9488347065) CREATININE (test code = 0.76 mg/dL 0.60-1.25 1656090262) TOTAL BILI (test code = 0.4 mg/dL 0.1-1.8 5284842318) CALCIUM (test code = 8.7 mg/dL 8.6-10.6 7892612631) T PROTEIN (test code = 6.3 g/dL 6.3-8.2 2464386178) ALBUMIN (test code = 3.6 g/dL 3.5-5.0 0798894368) ALK PHOS (test code = 233 U/L 34-122 H 0350081344) ALTv (test code = 37 U/L 5-50 1742-6) AST(SGOT) (test code = 32 U/L 13-40 8067984612) eGFR (test code = mL/min/1.73m2 6607389455) JUAN DAVID (test code = JUAN DAVID) [...] tests). Lab Interpretation Abnormal (test code = 37780-4) [facility], [facility], NON [id number] 23:20:00[facility] 1960 Sex: MFINAL REPORT Patient Name: Carrol MelendezRN: [id number]: 1960 CLINICAL HISTORY: Pain TECHNIQUE: 1 view of the chest COMPARISON: None IMPRESSION: There are no focal infiltrates or pleural effusions. The cardiomediastinal silhouette is within normal limits for size. The visualized bones are intact. Tubing projects in the upper abdomen. Signed: Chapito Zayas MDReport Verified Date/Time: 07/06/2022 23:20:47 Reading Location: [address] Reading Room TROPONIN [id number] 14:21:46 Test Item Value Reference Interpretation Comments Range TROPONIN I (test 0.003 ng/mL See_Comment [Automated code = 2469414542) message] The system which generated this result [...] biotin. Lab Interpretation Normal (test code = 30520-3) [facility] [id number] 14:21:46 Test Item Value Reference Range Interpretation Comments NT-proBNP (test code 128 pg/mL See_Comment H [Autom ated = 8909314348) message] The system which generated this result transmitted reference range : <=125. The reference range was not used to interpret this result as normal/abnormal . JUAN DAVID (test code = JUAN DAVID) Biotin has been reported to cause a negative bias, interpret results relative to patient's use of biotin. Lab Interpretation Abnormal (test code = 25344-3) [facility]TR[facility] [id number] 14:21:46 Test Item Value Reference Interpretation Comments Range TROPONIN I (test 0.003 ng/mL See_Comment [Automated code = 1422515395) message] The system which generated this result [...] biotin. Lab Interpretation Normal (test code = 53695-8) [facility] [id number] 14:21:46 Test Item Value Reference Range Interpretation Comments NT-proBNP (test code 128 pg/mL See_Comment H [Autom ated = 3259432087) message] The system which generated this result transmitted reference range : <=125. The reference range was not used to interpret this result as normal/abnormal . JUAN DAVID (test code = JUAN DAVID) Biotin has been reported to cause a negative bias, interpret results relative to patient's use of biotin. Lab Interpretation Abnormal (test code = 19734-6) [facility] [id number] 14:21:46 Test Item Value Reference Interpretation Comments Range TROPONIN I (test 0.003 ng/mL See_Comment [Automated code = 6162294374) message] The system which generated this result [...] biotin. Lab Interpretation Normal (test code = 53806-5) [facility] [id number] 14:21:46 Test Item Value Reference Range Interpretation Comments NT-proBNP (test code 128 pg/mL See_Comment H [Autom ated = 2722316841) message] The system which generated this result transmitted reference range : <=125. The reference range was not used to interpret this result as normal/abnormal . JUAN DAVID (test code = JUAN DAVID) Biotin has been reported to cause a negative bias, interpret results relative to patient's use of biotin. Lab Interpretation Abnormal (test code = 04539-1) [facility] [id number] 14:21:46 Test Item Value Reference Interpretation Comments Range TROPONIN I (test 0.003 ng/mL See_Comment [Automated code = 1678580341) message] The system which generated this result [...] biotin. Lab Interpretation Normal (test code = 85988-1) [facility] [id number] 14:21:46 Test Item Value Reference Range Interpretation Comments NT-proBNP (test code 128 pg/mL See_Comment H [Autom ated = 4866243073) message] The system which generated this result transmitted reference range : <=125. The reference range was not used to interpret this result as normal/abnormal . JUAN DAVID (test code = JUAN DAVID) Biotin has been reported to cause a negative bias, interpret results relative to patient's use of biotin. Lab Interpretation Abnormal (test code = 83444-0) [facility] [id number] 14:21:46 Test Item Value Reference Interpretation Comments Range TROPONIN I (test 0.003 ng/mL See_Comment [Automated code = 2401416885) message] The system which generated this result [...] biotin. Lab Interpretation Normal (test code = 89726-1) [facility] [id number] 14:21:46 Test Item Value Reference Range Interpretation Comments NT-proBNP (test code 128 pg/mL See_Comment H [Autom ated = 9710375833) message] The system which generated this result transmitted reference range : <=125. The reference range was not used to interpret this result as normal/abnormal . JUAN DAVID (test code = JUAN DAVID) Biotin has been reported to cause a negative bias, interpret results relative to patient's use of biotin. Lab Interpretation Abnormal (test code = 65662-7) [facility] [id number] 14:21:46 Test Item Value Reference Interpretation Comments Range TROPONIN I (test 0.003 ng/mL See_Comment [Automated code = 9704930152) message] The system which generated this result [...] biotin. Lab Interpretation Normal (test code = 99378-1) [facility] [id number] 14:21:46 Test Item Value Reference Range Interpretation Comments NT-proBNP (test code 128 pg/mL See_Comment H [Autom ated = 1721241962) message] The system which generated this result transmitted reference range : <=125. The reference range was not used to interpret this result as normal/abnormal . JUAN DAVID (test code = JUAN DAVID) Biotin has been reported to cause a negative bias, interpret results relative to patient's use of biotin. Lab Interpretation Abnormal (test code = 15344-5) [facility] [id number] 14:21:46 Test Item Value Reference Interpretation Comments Range TROPONIN I (test 0.003 ng/mL See_Comment [Automated code = 9390083425) message] The system which generated this result [...] biotin. Lab Interpretation Normal (test code = 91085-6) [facility] [id number] 14:21:46 Test Item Value Reference Range Interpretation Comments NT-proBNP (test code 128 pg/mL See_Comment H [Autom ated = 0815983727) message] The system which generated this result transmitted reference range : <=125. The reference range was not used to interpret this result as normal/abnormal . JUAN DAVID (test code = JUAN DAVID) Biotin has been reported to cause a negative bias, interpret results relative to patient's use of biotin. Lab Interpretation Abnormal (test code = 72698-1) [facility] [id number] 14:21:46 Test Item Value Reference Interpretation Comments Range TROPONIN I (test 0.003 ng/mL See_Comment [Automated code = 2398407960) message] The system which generated this result [...] biotin. Lab Interpretation Normal (test code = 89997-4) [facility] [id number] 14:21:46 Test Item Value Reference Range Interpretation Comments NT-proBNP (test code 128 pg/mL See_Comment H [Autom ated = 4325870620) message] The system which generated this result transmitted reference range : <=125. The reference range was not used to interpret this result as normal/abnormal . JUAN DAVID (test code = JUAN DAVID) Biotin has been reported to cause a negative bias, interpret results relative to patient's use of biotin. Lab Interpretation Abnormal (test code = 08031-1) [facility] CenterMAGNESIUM2022-10-22 12:14:22 Test Item Value Reference Range Interpretation Comments MAGNESIUM (test code = 2462960196) 1.8 mg/dL 1.7-2.4 Lab Interpretation (test code = Normal 87505-4) [facility] CenterBAS[facility] METABOLIC PANEL (NA, K, CL, CO2, GLUCOSE, BUN, CREATININE, CA)2022-06-26 12:14:22 Test Item Value Reference Range Interpretation Comments NA (test code = 134 mmol/L 135-145 L 2342237345) K (test code = 3.9 mmol/L 3.5-5 2829739165) CL (test code = 101 mmol/L 98-108 4464932775) CO2 TOTAL (test code = 27 mmol/L 23-31 3265861397) AGAP (test code = 2-16 1909281287) BUN (test code = 7 mg/dL 7-23 2141401982) GLUCOSE (test code = 108 mg/dL 70-110 1836127302) CREATININE (test code = 0.74 mg/dL 0.6-1.25 5850459266) CALCIUM (test code = 8.4 mg/dL 8.6-10.6 L 0527856509) eGFR (test code = mL/min/1.73m2 2276393791) JUAN DAVID (test code = JUAN DAVID) [...] tests). Lab Interpretation Abnormal (test code = 81410-9) [facility] METABOLIC PANEL (NA, K, CL, CO2, GLUCOSE, BUN, CREATININE, CA)2022-06-26 12:14:22 Test Item Value Reference Range Interpretation Comments NA (test code = 134 mmol/L 135-145 L 9706465095) K (test code = 3.9 mmol/L 3.5-5 2602680761) CL (test code = 101 mmol/L 98-108 8985488947) CO2 TOTAL (test code = 27 mmol/L 23-31 3245240839) AGAP (test code = 2-16 0918072635) BUN (test code = 7 mg/dL 7-23 4774753398) GLUCOSE (test code = 108 mg/dL 70-110 2994826131) CREATININE (test code = 0.74 mg/dL 0.6-1.25 5933957012) CALCIUM (test code = 8.4 mg/dL 8.6-10.6 L 3472503595) eGFR (test code = mL/min/1.73m2 9474424272) JUAN DAVID (test code = JUAN DAVID) [...] tests). Lab Interpretation Abnormal (test code = 45017-4) [facility] 12:14:22 Test Item Value Reference Range Interpretation Comments MAGNESIUM (test code = 2540159936) 1.8 mg/dL 1.7-2.4 Lab Interpretation (test code = Normal 03422-2) [facility]-[id number] 12:02:19 Test Item Value Reference Interpretation Comments Range D-DIMER (test code = See_Comment H [Autom ated 2623047687) message] The system which generated this result [...] diagnosis. Lab Interpretation Abnormal (test code = 96579-8) [facility]-[id number] 12:02:19 Test Item Value Reference Interpretation Comments Range D-DIMER (test code = See_Comment H [Autom ated 8088621656) message] The system which generated this result [...] diagnosis. Lab Interpretation Abnormal (test code = 73192-2) [facility]-[id number] 12:02:19 Test Item Value Reference Interpretation Comments Range D-DIMER (test code = See_Comment H [Autom ated 0291383392) message] The system which generated this result [...] diagnosis. Lab Interpretation Abnormal (test code = 00161-2) [facility]-[id number] 12:02:19 Test Item Value Reference Interpretation Comments Range D-DIMER (test code = See_Comment H [Autom ated 0847251695) message] The system which generated this result [...] diagnosis. Lab Interpretation Abnormal (test code = 02369-2) [facility]-[id number] 12:02:19 Test Item Value Reference Interpretation Comments Range D-DIMER (test code = See_Comment H [Autom ated 3788671058) message] The system which generated this result [...] diagnosis. Lab Interpretation Abnormal (test code = 67410-0) [facility]-[id number] 12:02:19 Test Item Value Reference Interpretation Comments Range D-DIMER (test code = See_Comment H [Autom ated 2470554280) message] The system which generated this result [...] diagnosis. Lab Interpretation Abnormal (test code = 14602-1) [facility]-[id number] 12:02:19 Test Item Value Reference Interpretation Comments Range D-DIMER (test code = See_Comment H [Autom ated 5991645622) message] The system which generated this result [...] diagnosis. Lab Interpretation Abnormal (test code = 34453-5) [facility]-[id number] 12:02:19 Test Item Value Reference Interpretation Comments Range D-DIMER (test code = See_Comment H [Autom ated 4590652171) message] The system which generated this result [...] diagnosis. Lab Interpretation Abnormal (test code = 61895-4) [facility] WITH [id number] 11:51:18 Test Item Value Reference Range Interpretation [...] RDW-SD (test code = 42.1 fL 38.5-51.6 61359-5) RDW-CV (test code = 13.3 % 12.1-15.4 788-0) PLT (test code = See_Comment L [Automated 777-3) message] The sy stem which generated this result transmitted reference range : 150 - 328 10*3/ ?L. The reference r helen was not used to interpret this result as normal/abnormal . MPV (test code = 10.5 fL 9.8-13 62559-4) NRBC/100 WBC (test See_Comment [Automat ed code = 1358050523) message] The system which generated this result transmitted reference range : 0.0 - 10.0 /100 WBCs. The refer ence range was not u sed to interpret th is result as normal/abnormal . NRBC x10^3 (test code See_Comment [Auto mated = 3210578659) message] The s ystem which generated this result transmitted reference range : 10*3/?L. The reference range was not used to interpret this result as normal/abnormal . GRAN MAT (NEUT) % 74.2 % (test code = 770-8) IMM GRAN % (test code 0.90 % = 9294121507) LYMPH % (test code = 14.4 % 736-9) MONO % (test code = 9.7 % 5905-5) EOS % (test code = 0.4 % 713-8) BASO % (test code = 0.4 % 706-2) GRAN MAT x10^3(ANC) 4.07 10*3/uL 1.99-6.95 (test code = 9001697421) IMM GRAN x10^3 (test 0.05 10*3/uL 0-0.06 code = 1080368854) LYMPH x10^3 (test code 0.79 10*3/uL 1.09-3.23 L = 731-0) MONO x10^3 (test code 0.53 10*3/uL 0.36-1.02 = 742-7) EOS x10^3 (test code = 0.06-0.53 L 711-2) BASO x10^3 (test code 0.01-0.09 = 704-7) Lab Interpretation Abnormal (test code = 79541-5) [facility] WITH [id number] 11:51:18 Test Item Value Reference Range Interpretation [...] RDW-SD (test code = 42.1 fL 38.5-51.6 21780-5) RDW-CV (test code = 13.3 % 12.1-15.4 788-0) PLT (test code = See_Comment L [Automated 777-3) message] The sy stem which generated this result transmitted reference range : 150 - 328 10*3/ ?L. The reference r helen was not used to interpret this result as normal/abnormal . MPV (test code = 10.5 fL 9.8-13 21092-1) NRBC/100 WBC (test See_Comment [Automat ed code = 6415133703) message] The system which generated this result transmitted reference range : 0.0 - 10.0 /100 WBCs. The refer ence range was not u sed to interpret th is result as normal/abnormal . NRBC x10^3 (test code See_Comment [Auto mated = 5252786352) message] The s ystem which generated this result transmitted reference range : 10*3/?L. The reference range was not used to interpret this result as normal/abnormal . GRAN MAT (NEUT) % 74.2 % (test code = 770-8) IMM GRAN % (test code 0.90 % = 0097407400) LYMPH % (test code = 14.4 % 736-9) MONO % (test code = 9.7 % 5905-5) EOS % (test code = 0.4 % 713-8) BASO % (test code = 0.4 % 706-2) GRAN MAT x10^3(ANC) 4.07 10*3/uL 1.99-6.95 (test code = 9410269685) IMM GRAN x10^3 (test 0.05 10*3/uL 0-0.06 code = 5731003888) LYMPH x10^3 (test code 0.79 10*3/uL 1.09-3.23 L = 731-0) MONO x10^3 (test code 0.53 10*3/uL 0.36-1.02 = 742-7) EOS x10^3 (test code = 0.06-0.53 L 711-2) BASO x10^3 (test code 0.01-0.09 = 704-7) Lab Interpretation Abnormal (test code = 89672-5) [facility] (ALB,T.PRO,BILI T,BU/BC,ALT,AST,ALK PHOS)2022-06-25 23:34:17 Test Item Value Reference Range Interpretation Comments TOTAL BILI (test code = 1098999680) 0.5 mg/dL 0.1-1.1 BILI UNCON (test code = 9852451515) 0.2 mg/dL 0.1-1.1 BILI CONJ (test code = 3674234089) 0.0 mg/dL 0-0.3 T PROTEIN (test code = 2895055353) 5.9 g/dL 6.3-8.2 L ALBUMIN (test code = 7253158513) 3.3 g/dL 3.5-5 L ALK PHOS (test code = 2847084717) 256 U/L 34-122 H ALTv (test code = 1742-6) 168 U/L 5-50 H AST(SGOT) (test code = 8504269608) 151 U/L 13-40 H Lab Interpretation (test code = Abnormal 27659-9) [facility]19016[facility] (ALB,T.PRO,BILI T,BU/BC,ALT,AST,ALK PHOS)2022-06-25 23:34:17 Test Item Value Reference Range Interpretation Comments TOTAL BILI (test code = 3407741353) 0.5 mg/dL 0.1-1.1 BILI UNCON (test code = 0530652945) 0.2 mg/dL 0.1-1.1 BILI CONJ (test code = 1552678730) 0.0 mg/dL 0-0.3 T PROTEIN (test code = 7314248411) 5.9 g/dL 6.3-8.2 L ALBUMIN (test code = 4545956417) 3.3 g/dL 3.5-5 L ALK PHOS (test code = 2121151220) 256 U/L 34-122 H ALTv (test code = 1742-6) 168 U/L 5-50 H AST(SGOT) (test code = 6595239851) 151 U/L 13-40 H Lab Interpretation (test code = Abnormal 45141-1) [facility]78242[facility] (ALB,T.PRO,BILI T,BU/BC,ALT,AST,ALK PHOS)2022-06-25 23:34:17 Test Item Value Reference Range Interpretation Comments TOTAL BILI (test code = 3555199726) 0.5 mg/dL 0.1-1.1 BILI UNCON (test code = 9693036302) 0.2 mg/dL 0.1-1.1 BILI CONJ (test code = 7507071414) 0.0 mg/dL 0-0.3 T PROTEIN (test code = 6852109673) 5.9 g/dL 6.3-8.2 L ALBUMIN (test code = 6026780315) 3.3 g/dL 3.5-5 L ALK PHOS (test code = 5417054477) 256 U/L 34-122 H ALTv (test code = 1742-6) 168 U/L 5-50 H AST(SGOT) (test code = 0059402293) 151 U/L 13-40 H Lab Interpretation (test code = Abnormal 66372-6) [facility] GLUCOSE (AUTOMATED)2022-06-25 20:16:06 Test Item Value Reference Range Interpretation Comments POCT GLU (test code = 2130614247) 110 mg/dL 70-110 Lab Interpretation (test code = Normal 27915-6) [facility] GLUCOSE (AUTOMATED)2022-06-25 20:16:06 Test Item Value Reference Range Interpretation Comments POCT GLU (test code = 8106724771) 110 mg/dL 70-110 Lab Interpretation (test code = Normal 21003-6) [facility] GLUCOSE (AUTOMATED)2022-06-25 20:16:06 Test Item Value Reference Range Interpretation Comments POCT GLU (test code = 8627450981) 110 mg/dL 70-110 Lab Interpretation (test code = Normal 49383-2) [facility] GLUCOSE (AUTOMATED)2022-06-25 20:16:06 Test Item Value Reference Range Interpretation Comments POCT GLU (test code = 6586555971) 110 mg/dL 70-110 Lab Interpretation (test code = Normal 62721-2) [facility] GLUCOSE (AUTOMATED)2022-06-25 20:16:06 Test Item Value Reference Range Interpretation Comments POCT GLU (test code = 4039495217) 110 mg/dL 70-110 Lab Interpretation (test code = Normal 53027-7) [facility] GLUCOSE (AUTOMATED)2022-06-25 20:16:06 Test Item Value Reference Range Interpretation Comments POCT GLU (test code = 8567856710) 110 mg/dL 70-110 Lab Interpretation (test code = Normal 89345-6) [facility] GLUCOSE (AUTOMATED)2022-06-25 20:16:06 Test Item Value Reference Range Interpretation Comments POCT GLU (test code = 6028622914) 110 mg/dL 70-110 Lab Interpretation (test code = Normal 09391-3) [facility] GLUCOSE (AUTOMATED)2022-06-25 20:16:06 Test Item Value Reference Range Interpretation Comments POCT GLU (test code = 3292080529) 110 mg/dL 70-110 Lab Interpretation (test code = Normal 69895-3) [facility] / [id number] 07:29:57 Test Item Value Reference Range Interpretation Comments PROTIME PATIENT (test See_Comment [Auto mated message] code = 5964-2) The system [employer] generated this result transmitted ref erence range: 10.1 - 1 2.6 Seconds. The re ference range was not u sed to interpret this result as normal/abnor mal. INR (test code = 6301-6) Nor mal INR <1.1; Warfarin Therap eutic range 2.0 to 3. 0 or 2.5 to 3.5, dep ending upon the indica tions. Lab Interpretation (test Normal code = 63913-6) [facility] / [id number] 07:29:57 Test Item Value Reference Range Interpretation Comments PROTIME PATIENT (test See_Comment [Auto mated message] code = 5964-2) The system [employer] generated this result transmitted ref erence range: 10.1 - 1 2.6 Seconds. The re ference range was not u sed to interpret this result as normal/abnor mal. INR (test code = 6301-6) Nor mal INR <1.1; Warfarin Therap eutic range 2.0 to 3. 0 or 2.5 to 3.5, dep ending upon the indica tions. Lab Interpretation (test Normal code = 67491-6) [facility]. METABOLIC PANEL (68580)2022-06-20 07:17:55 Test Item Value Reference Range Interpretation Comments NA (test code = 135 mmol/L 135-145 4995290312) K (test code = 4.4 mmol/L 3.5-5 2649983494) CL (test code = 99 mmol/L 98-108 1224519066) CO2 TOTAL (test code = 25 mmol/L 23-31 2890124272) AGAP (test code = 2-16 1560031774) BUN (test code = 13 mg/dL 7-23 2690126423) GLUCOSE (test code = 76 mg/dL 70-110 7684610906) CREATININE (test code = 0.79 mg/dL 0.6-1.25 7066559228) TOTAL BILI (test code = 0.3 mg/dL 0.1-1.6 7667266104) CALCIUM (test code = 8.5 mg/dL 8.6-10.6 L 9700796817) T PROTEIN (test code = 6.0 g/dL 6.3-8.2 L 1860426268) ALBUMIN (test code = 3.4 g/dL 3.5-5 L 3793323120) ALK PHOS (test code = 253 U/L 34-122 H 6341100360) ALTv (test code = 62 U/L 5-50 H 1742-6) AST(SGOT) (test code = 33 U/L 13-40 1764647932) eGFR (test code = mL/min/1.73m2 6237536070) JUAN DAVID (test code = JUAN DAVID) [...] tests). Lab Interpretation Abnormal (test code = 92336-8) [facility]. METABOLIC PANEL (91464)2022-06-20 07:17:55 Test Item Value Reference Range Interpretation Comments NA (test code = 135 mmol/L 135-145 3051283843) K (test code = 4.4 mmol/L 3.5-5 4815766574) CL (test code = 99 mmol/L 98-108 6626554630) CO2 TOTAL (test code = 25 mmol/L 23-31 3151726973) AGAP (test code = 2-16 3468380115) BUN (test code = 13 mg/dL 7-23 4412519399) GLUCOSE (test code = 76 mg/dL 70-110 0558467717) CREATININE (test code = 0.79 mg/dL 0.6-1.25 2578743760) TOTAL BILI (test code = 0.3 mg/dL 0.1-1.4 3825162358) CALCIUM (test code = 8.5 mg/dL 8.6-10.6 L 4826474015) T PROTEIN (test code = 6.0 g/dL 6.3-8.2 L 3069245855) ALBUMIN (test code = 3.4 g/dL 3.5-5 L 3167802145) ALK PHOS (test code = 253 U/L 34-122 H 2824032618) ALTv (test code = 62 U/L 5-50 H 1742-6) AST(SGOT) (test code = 33 U/L 13-40 7172271547) eGFR (test code = mL/min/1.73m2 8672480861) JUAN DAVID (test code = JUAN DAVID) [...] tests). Lab Interpretation Abnormal (test code = 35473-7) [facility] WITH [id number] 06:57:57 Test Item Value Reference Range Interpretation [...] RDW-SD (test code = 38.6 fL 38.5-51.6 25654-2) RDW-CV (test code = 12.3 % 12.1-15.4 788-0) PLT (test code = See_Comment [Automated 777-3) message] The sy stem which generated this result transmitted reference range : 150 - 328 10*3/ ?L. The reference r helen was not used to interpret this result as normal/abnormal . MPV (test code = 10.1 fL 9.8-13 03849-3) NRBC/100 WBC (test See_Comment [Automat ed code = 9460557183) message] The system which generated this result transmitted reference range : 0.0 - 10.0 /100 WBCs. The refer ence range was not u sed to interpret th is result as normal/abnormal . NRBC x10^3 (test code See_Comment [Auto mated = 9166809982) message] The s ystem which generated this result transmitted reference range : 10*3/?L. The reference range was not used to interpret this result as normal/abnormal . GRAN MAT (NEUT) % 53.0 % (test code = 770-8) IMM GRAN % (test code 1.10 % = 5274842605) LYMPH % (test code = 31.8 % 736-9) MONO % (test code = 13.1 % 5905-5) EOS % (test code = 0.6 % 713-8) BASO % (test code = 0.4 % 706-2) GRAN MAT x10^3(ANC) 2.46 10*3/uL 1.99-6.95 (test code = 6187823659) IMM GRAN x10^3 (test 0.05 10*3/uL 0-0.06 code = 3263925502) LYMPH x10^3 (test code 1.48 10*3/uL 1.09-3.23 = 731-0) MONO x10^3 (test code 0.61 10*3/uL 0.36-1.02 = 742-7) EOS x10^3 (test code = 0.03 10*3/uL 0.06-0.53 L 711-2) BASO x10^3 (test code 0.01-0.09 = 704-7) Lab Interpretation Abnormal (test code = 79252-0) [facility] WITH [id number] 06:57:57 Test Item Value Reference Range Interpretation Comments WBC (test code = See_Comment [Automated 7390-2) message] The sy stem which generated this result transmitted reference range : 4.20 - 10.70 10*3/?L. The reference range was not used to interpret this result as normal/abnormal . RBC (test code = See_Comment L [Automated 029-8) message] The sy stem which generated this [...] RDW-SD (test code = 38.6 fL 38.5-51.6 94579-8) RDW-CV (test code = 12.3 % 12.1-15.4 788-0) PLT (test code = See_Comment [Automated 7-3) message] The sy stem which generated this result transmitted reference range : 150 - 328 10*3/ ?L. The reference r helen was not used to interpret this result as normal/abnormal . MPV (test code = 10.1 fL 9.8-13 70443-8) NRBC/100 WBC (test See_Comment [Automat ed code = 6901658529) message] The system which generated this result transmitted reference range : 0.0 - 10.0 /100 WBCs. The refer ence range was not u sed to interpret th is result as normal/abnormal . NRBC x10^3 (test code See_Comment [Auto mated = 5119178804) message] The s ystem which generated this result transmitted reference range : 10*3/?L. The reference range was not used to interpret this result as normal/abnormal . GRAN MAT (NEUT) % 53.0 % (test code = 770-8) IMM GRAN % (test code 1.10 % = 4233816310) LYMPH % (test code = 31.8 % 736-9) MONO % (test code = 13.1 % 5905-5) EOS % (test code = 0.6 % 713-8) BASO % (test code = 0.4 % 706-2) GRAN MAT x10^3(ANC) 2.46 10*3/uL 1.99-6.95 (test code = 4778305646) IMM GRAN x10^3 (test 0.05 10*3/uL 0-0.06 code = 3051775332) LYMPH x10^3 (test code 1.48 10*3/uL 1.09-3.23 = 731-0) MONO x10^3 (test code 0.61 10*3/uL 0.36-1.02 = 742-7) EOS x10^3 (test code = 0.03 10*3/uL 0.06-0.53 L 711-2) BASO x10^3 (test code 0.01-0.09 = 704-7) Lab Interpretation Abnormal (test code = 76768-1) [facility] [id number] 21:25:38 Test Item Value Reference Range Interpretation Comments LACTIC ACID (test code = 0.77 mmol/L 0.5-2.2 2022237776) Lab Interpretation (test code = Normal 63570-5[facility] [id number] 21:25:38 Test Item Value Reference Range Interpretation Comments LACTIC ACID (test code = 0.77 mmol/L 0.5-2.2 3489890926) Lab Interpretation (test code = Normal 55406-3) [facility] Acid Whole [id number] 21:25:38 Test Item Value Reference Range Interpretation Comments LACTIC ACID (test code = 0.77 mmol/L 0.5-2.2 3175786291) Lab Interpretation (test code = Normal 53083-8) [facility] Acid Whole [id number] 21:25:38 Test Item Value Reference Range Interpretation Comments LACTIC ACID (test code = 0.77 mmol/L 0.5-2.2 9532478901) Lab Interpretation (test code = Normal 98866-2) [facility] Acid Whole [id number] 21:25:38 Test Item Value Reference Range Interpretation Comments LACTIC ACID (test code = 0.77 mmol/L 0.50-2.20 5735363611) Lab Interpretation (test code = Normal 37054-9) [facility] fluid culture + gram [id number] 20:31:19 Test Item Value Reference Range Interpretation Comments Result (test code = 6463-4) No growth Gram Stain Result (test No organisms seen code = 1123) [facility] fluid culture + gram [id number] 20:31:19 Test Item Value Reference Range Interpretation Comments Result (test code = 6463-4) No growth Gram Stain Result (test No organisms seen code = 1123) [facility] [id number] 20:31:19 Test Item Value Reference Range Interpretation Comments Result (test code = 6463-4) No growth Gram Stain Result (test No organisms seen code = 1123) [facility] fluid culture + gram [id number] 20:31:19 Test Item Value Reference Range Interpretation Comments Result (test code = 6463-4) No growth Gram Stain Result (test No organisms seen code = 1123) [facility] gram [id number] 20:31:19 Test Item Value Reference Range Interpretation Comments Result (test code = 6463-4) No growth Gram Stain Result (test No organisms seen code = 1123) [facility] GRAM [id number] 20:31:19 Test Item Value Reference Range Interpretation Comments CULTURE (BEAKER) (test code No growth = 1095) GRAM STAIN RESULT (BEAKER) <1+ WBCs (test code = 1123) GRAM STAIN RESULT (BEAKER) No organisms seen (test code = 41673) COMPREHENSIVE METABOLIC [id number] 05:27:55 Test Item Value Reference Range Interpretation [...] not appl icable for dialysis patien ts Operator Prefinish ID - MERRY MCBC W/PLT COUNT & AUTO [id number] 05:18:09 Test Item Value Reference Range Interpretation [...] (BEAKER) (test code = 2801) ANG, ABSCESS [id number] 08:52:00Reason for exam:->[facility]ili[facility] 1960 Sex: MFINAL [...] the patient's medical record by the nurse. Portfolio Manager:Robel Elizalde MD. Bag Machine Adjuster: Theresa Doe MD (Fellow) Approach: Upper abdomen, [...] The tract was dilated and a 8.5 Lithuanian drainage catheter advanced over with pigtail formed [...] collection drainage with placement of a 8.5 Lithuanian pigtail drainage catheter as detailed above. Signed: [...] not appl icable for dialysis patien ts Operator Prefinish ID - PIAYA LCBC W/PLT COUNT & AUTO [id number] 04:05:39 Test Item Value Reference Range Interpretation [...] PERCENT (BEAKER) (test code = 2801) PROTHROMBIN TIME/[id number] 06:26:26 Test Item Value Reference Range Interpretation Comments PROTIME (BEAKER) 15.1 seconds 11.9-14.2 H (test code = 759) INR (BEAKER) (test 1.26 See_Comment [Automat ed message] code = 370) The system [employer] generated this result transmitted ref erence range: [...] not appl icable for dialysis patien ts Operator Prefinish ID - YOU WCBC W/PLT COUNT & AUTO [id number] 05:34:36 Test Item Value Reference Range Interpretation [...] SARS-Co V-2 (test code = target nucleic 93829-3) acids are not detected in thi s [...] S ARS CoV-2 test is a rapid, real-charles e RT-PCR test intended for th e [...] revoked sooner. Fact Sheet for Healthcare Providers: https://www.Tempeest/Documents/Xp ert%20Xpress%20SAR S%20CoV-2/Fact%20S heets/281-2777%20S ARS-COV-2%20HEALTH CARE%20PROVIDERS%2 0FACT%20SHEET.pdf Fact Sheet for Healthcare Patients: https://www.[employer]est/Documents/Xp ert%20Xpress%20SAR S%20CoV-2/Fact%20S heets/302-3801%20S ARS-COV-2%20PATIEN T%20FACT%20SHEET.p df Lab Interpretation Normal (test code = 85662-6) [facility]2022-05-15 12:45:15 Test Item Value Reference Interpretation Comments Range SARS-COV2/RT-PCR Negative Negative The SARS-Co V-2 (test code = target nucleic 42402-8) acids are not detected in thi s [...] S ARS CoV-2 test is a rapid, real-charles e RT-PCR test intended for th e [...] revoked sooner. Fact Sheet for Healthcare Providers: https://www.[employer]/Documents/Xp ert%20Xpress%20SAR S%20CoV-2/Fact%20S heets/302-3802%20S ARS-COV-2%20HEALTH CARE%20PROVIDERS%2 0FACT%20SHEET.pdf Fact Sheet for Healthcare Patients: https://www.[employer]/Documents/Xp ert%20Xpress%20SAR S%20CoV-2/Fact%20S heets/302-3801%20S ARS-COV-2%20PATIEN T%20FACT%20SHEET.p df Lab Interpretation Normal (test code = 02405-6) [facility]2022-05-15 12:45:15 Test Item Value Reference Interpretation Comments Range SARS-COV2/RT-PCR Negative Negative The SARS-Co V-2 (test code = target nucleic 33208-2) acids are not detected in thi s [...] S ARS CoV-2 test is a rapid, real-charles e RT-PCR test intended for th e qualitative detection of nucleic acid fr om SARS-CoV-2 in a nasopharyngeal swab specimen collec loki from individual s suspected of COVID-19 by the ir healthcare provider. JUAN DAVID (test code = This test has been JUAND AVID) authorized by FDA under an EUA for [...] revoked sooner. Fact Sheet for Healthcare Providers: https://www.[employer]peest/Documents/Xp ert%20Xpress%20SAR S%20CoV-2/Fact%20S heets/3023802%20S ARS-COV-2%20HEALTH CARE%20PROVIDERS%2 0FACT%20SHEET.pdf Fact Sheet for Healthcare Patients: https://www.[employer]/Documents/Xp ert%20Xpress%20SAR S%20CoV-2/Fact%20S heets/3023801%20S ARS-COV-2%20PATIEN T%20FACT%20SHEET.p df Lab Interpretation Normal (test code = 80595-7) [facility]2022-05-15 12:45:15 Test Item Value Reference Interpretation Comments Range SARS-COV2/RT-PCR Negative Negative The SARS-Co V-2 (test code = target nucleic 60412-5) acids are not detected in thi s [...] S ARS CoV-2 test is a rapid, real-charles e RT-PCR test intended for th e [...] revoked sooner. Fact Sheet for Healthcare Providers: https://www.[employer]/Documents/Xp ert%20Xpress%20SAR S%20CoV-2/Fact%20S heets/302-3802%20S ARS-COV-2%20HEALTH CARE%20PROVIDERS%2 0FACT%20SHEET.pdf Fact Sheet for Healthcare Patients: https://www.[employer]/Documents/Xp ert%20Xpress%20SAR S%20CoV-2/Fact%20S heets/302-3801%20S ARS-COV-2%20PATIEN T%20FACT%20SHEET.p df Lab Interpretation Normal (test code = 69087-7) [facility]2022-05-15 12:45:15 Test Item Value Reference Interpretation Comments Range SARS-COV2/RT-PCR Negative Negative The SARS-Co V-2 (test code = target nucleic 16710-5) acids are not detected in thi s [...] S ARS CoV-2 test is a rapid, real-charles e RT-PCR test intended for e qualitative detection of nucleic acid fr [...] revoked sooner. Fact Sheet for Healthcare Providers: https://www.[employer]/Documents/Xp ert%20Xpress%20SAR S%20CoV-2/Fact%20S heets/302-3802%20S ARS-COV-2%20HEALTH CARE%20PROVIDERS%2 0FACT%20SHEET.pdf Fact Sheet for Healthcare Patients: https://www.[employer]/Documents/Xp ert%20Xpress%20SAR S%20CoV-2/Fact%20S heets/302-3801%20S ARS-COV-2%20PATIEN T%20FACT%20SHEET.p df Lab Interpretation Normal (test code = 57577-0) [facility])2022-05-15 12:45:15 Test Item Value Reference Range Interpretation Comments SARS-COV2/RT-PCR Negative Negative The SARS-Co V-2 target (test code = nucleic acids a re not 2775188) detected in thi s specimen. Negative result [...] individuals suspected of CO VID-19 by their [facility]. This test has been authorized [...] revoked sooner. Fact Sheet for Healthcare Providers: https://www.[employer]orStyle.Finalta m/Documents/Xpert%20Xpress%20SARS%20CoV-2/Fact%20Sheets/302-3802%22YSHO-NBJ-1%20 HEALTHCARE%20PROVIDERS%20FACT%20SHEET.pdf Fact Sheet for Healthcare Patients: https://www.[employer] Bean/Documents/Xpert%20Xp ress%20SARS%20CoV-2/Fact%20Sheets/302-3801%84AFEU-VHI-7%20PATIENT%20FACT%20SHEET .[id number] 02:48:18 Test Item Value Reference Range Interpretation Comments MAGNESIUM (BEAKER) (test code = 1.9 mg/dL 1.6-2.6 627) Operator Prefinish ID - WALLY [id number] 02:48:18 Test Item Value Reference Range Interpretation Comments PHOSPHORUS (BEAKER) (test code = 2.3 mg/dL 2.3-4.7 604) Operator Prefinish ID - WALLY MHEPATIC FUNCTION [id number] 02:48:18 Test Item Value Reference Range Interpretation [...] (test code = 28 U/L 6-55 347) Operator Prefinish ID - WALLY ASIC METABOLIC [id number] 02:48:17 Test Item Value Reference Range Interpretation [...] not appl icable for dialysis patien ts Operator Prefinish ID - WALLY MPROTHROMBIN TIME/[id number] 01:51:51 Test Item Value Reference Range Interpretation Comments PROTIME (BEAKER) 13.9 seconds 11.9-14.2 (test code = 759) INR (BEAKER) (test 1.13 See_Comment [Automat ed message] code = 370) The system [employer] generated this result transmitted ref erence range: <=5.90. The reference range was not used to int erpret this result as normal/abnormal . RECOMMENDED COUMADIN/WARFARIN INR THERAPY RANGESSTANDARD DOSE: 2.0 - 3.0 Includes: PROPHYLAXIS for venous thrombosis, systemic embolization; TREATMENT for venous thrombosis and/or pulmonary embolus.HIGH RISK: Target INR is 2.5-3.5 for patients with mechanical heart valves.CBC W/PLT COUNT & AUTO [id number] 01:43:47 Test Item Value Reference Range Interpretation [...] (BEAKER) (test code = 2801) BASIC METABOLIC [id number] 04:05:58 Test Item Value Reference Range Interpretation [...] not appl icable for dialysis patien ts Operator Prefinish ID Anatoliy ORTA [id number] 04:05:58 Test Item Value Reference Range Interpretation Comments MAGNESIUM (BEAKER) (test code = 2.2 mg/dL 1.6-2.6 627) Operator Prefinish ID Anatoliy ORTA WLIPID [id number] 04:05:58 Test Item Value Reference Range Interpretation [...] Borderline 130-159 High 160-189 Very High >=190 Operator Prefinish ID Anatoliy ORTA WHEPATIC FUNCTION [id number] 04:05:58 Test Item Value Reference Range Interpretation [...] (test code = 54 U/L 6-55 347) Operator Prefinish ID Anatoliy ORTA WCBC W/PLT COUNT & AUTO [id number] 03:45:31 Test Item Value Reference Range Interpretation [...] PERCENT (BEAKER) (test code = 2801) CT, [id number] 20:34:00Unlisted Reason for Exam - Click Yes and Enter Reason Below->NoIs this for enterography?->NoWill this procedure require oral contrast?->No [facility] : 1960 Sex: MFINAL REPORT [...] not appl icable for dialysis patien ts Operator Prefinish ID - MERRY [facility]BC (HEMOGRAM ONLY)2022-05-10 03:55:35 [...] SARS-Co V-2 (test code = target nucleic 22218-6) acids are not detected in thi s [...] S ARS CoV-2 test is a rapid, real-charles e RT-PCR test intended for th e [...] revoked sooner. Fact Sheet for Healthcare Providers: https://www.[employer]pe[employer]/Documents/Xp ert%20Xpress%20SAR S%20CoV-2/Fact%20S heets/302-3802%20S ARS-COV-2%20HEALTH CARE%20PROVIDERS%2 0FACT%20SHEET.pdf Fact Sheet for Healthcare Patients: https://www.[employer]/Documents/Xp ert%20Xpress%20SAR S%20CoV-2/Fact%20S heets/302-3801%20S ARS-COV-2%20PATIEN T%20FACT%20SHEET.p df Lab Interpretation Normal (test code = 70468-6) [facility]2022-05-10 03:50:54 Test Item Value Reference Range Interpretation Comments SARS-COV2/RT-PCR Negative Negative The SARS-Co V-2 target (test code = nucleic acids a re not 0409527) detected in thi s specimen. Negative result [...] revoked sooner. Fact Sheet for Healthcare Providers: https://www.[employer] m/Documents/Xpert%20Xpress%20SARS%20CoV-2/Fact%20Sheets/302-3802%03HYHM-DVL-8%20 HEALTHCARE%20PROVIDERS%20FACT%20SHEET.pdf Fact Sheet for Healthcare Patients: https://www.[employer]/Documents/Xpert%20Xp ress%20SARS%20CoV-2/Fact%20Sheets/302-3801%98LAPH-WNQ-8%20PATIENT%20FACT%20SHEET .pdf- XR CHEST 2 [id number] 00:00:00 [facility] : 1960 Sex: M FAX: Jordan Ledezma MD [phone] Bertrand: St: REG FAX: Y Ashvin Carter MD [phone] Name: CARROL ANNE [facility] : 1960 Age/S: 61/M [address] [place] [address] Blvd Unit #: [id number] Loc: [place], [place] [address]Ovlo: Ashvin Carter MD Acct: [id number] Dis Date: Status: REG CLI PHONE #: [phone] Exam Date: 01/07/2022 1508 FAX #: [phone] Reason: CLL EXAMS: CPT CODE: [id number] XR CHEST 2 V 89705 PROCEDURE INFORMATION: Exam: XR Chest Exam date [...] at 1750 Reported and signed by: Festus Francis M.D. CC: Jordan Juarez MD; Ashvin Carter MD Technologist: Fang Herrera RT(R) Trnscrd Date/Time/By: 01/07/2022 (508) : By: Kobe Orig Print D/T: S: 01/07/2022 (1749) PAGE 1 Signed Report
[2023-02-07] MEDS ORDERED: NA CHLORIDE 0.9% 1,000 ML ONE (11:08)
[2023-02-07] MEDS ORDERED: ONDANSETRON 4 MG/2 ML VIAL ONE (11:08)
[2023-02-07 11:47] LABS: Absolute Lymphocytes (CBC) 0.3 K/uL (0.7-4.9); Hematocrit 41.3 % (39.6-49.0); Lymphocytes % 6.7 % (15.3-44.8); MPV 8.7 fL (7.6-11.3)
[2023-02-07 11:59] LABS: Albumin 3.4 g/dL (3.4-5.0); Bilirubin Total 0.7 mg/dL (0.2-1.0); Magnesium 1.6 mg/dL (1.6-2.4); Potassium 3.6 mEq/L (3.5-5.1); Protein, Total 6.8 g/dL (6.4-8.2)
--- NOTE | 2023-02-07 12:27 | ER ---
Nurse's Notes [facility] Name: Wiley Anne Age: 62 yrs Sex: Male : 1960 Arrival Date: 02/07/2023 Time: 10:13 Bed 2 Private MD: Jordan Juarez Diagnosis: Nausea with vomiting, unspecified Presentation: 02/07 10:26 Chief complaint: /V/D and low back pain x 4 days. Coronavirus screen: At this time, the hb client does not indicate any symptoms associated with coronavirus-19. Ebola Screen: No symptoms or risks identified at this time. Initial Sepsis Screen: Does the patient meet any 2 criteria? No. Patient's initial sepsis screen is negative. Does the patient have a suspected source of infection? No. Patient's initial sepsis screen is negative. Risk Assessment: Do you want to hurt yourself or someone else? Patient reports no desire to harm self or others. Onset of symptoms was February 03, 2023. 10:26 Method Of Arrival: Wheelchair hb 10:26 Acuity: JASMIN 3 hb Historical: - Allergies: 10:27 No Known Allergies; hb - PMHx: 10:27 CLL; hb - PSHx: 10:27 abcess D/C; Cholecystectomy; hb - Immunization history:: Adult Immunizations up to date. - Social history:: Smoking status: . Screenin:23 [facility] ED Fall Risk Assessment (Adult) History of falling in the last 3 months, ko1 including since admission No falls in past 3 months (0 pts) Confusion or Disorientation No (0 pts) Intoxicated or Sedated No (0 pts) Impaired Gait No (0 pts) Mobility Assist Device Used No (0 pt) Altered Elimination No (0 pt) Score/Fall Risk Level 0 - 2 = Low Risk Oriented to surroundings, Maintained a safe environment, Educated pt \T\ family on fall prevention, incl call for assistance when getting out of bed, Assessed \T\ reinforced patient's understanding of fall precautions, Provided non-skid footwear, Hourly rounding (assess needs \T\ fall precautionary measures) done, Used ambulatory aids as needed (educated on \T\ assisted with), Used gait belt as appropriate. Abuse screen: Denies threats or abuse. Denies injuries from another. Nutritional screening: No deficits noted. Tuberculosis screening: No symptoms or risk factors identified. Assessment: 12:50 Reassessment: Patient appears in no apparent distress at this time. Patient is alert, nj1 oriented x 3, equal unlabored respirations, skin warm/dry/pink. Patient states feeling better. Patient states symptoms have improved. Vital Signs: 10:26 BP 142 / 92; Pulse 110; Resp 16; Temp 98.7; Pulse Ox 95% on R/A; Weight 57.15 kg; hb Height 5 ft. 2 in. ; Pain 6/10; 11:41 BP 131 / 76; Pulse 102; Resp 16; Pulse Ox 98% on R/A; ko1 12:50 BP 120 / 76; Pulse 100; Resp 16; Pulse Ox 93% on R/A; nj1 10:26 Body Mass Index 23.05 (57.15 kg, 157.48 cm) hb 10:26 Pain Scale: Adult hb ED Course: 10:16 Patient arrived in ED. am2 10:16 Jordan Juarez MD is Private Physician. am2 10:27 Triage completed. hb 10:29 Nick Nuñez MD is Attending Physician. rt 10:59 Christelle Quevedo, MOSES is Primary Nurse. ko1 11:23 Patient has correct armband on for positive identification. Bed in low position. Call ko1 light in reach. Side rails up X2. Client placed on continuous cardiac and pulse oximetry monitoring. NIBP monitoring applied. gambling monitor on. Door closed. Noise minimized. Lights dimmed. Warm blanket given. 11:23 Inserted saline lock: 20 gauge in left forearm, using aseptic technique. Blood ko1 collected. 11:39 Lipase Sent. ko1 11:39 Magnesium Sent. ko1 11:39 CMP Sent. ko1 11:39 CBC with Diff Sent. ko1 12:26 Jordan Juarez MD is Referral Physician. rt 12:50 IV discontinued, intact, bleeding controlled. nj1 Administered Medications: 11:23 Drug: NS 0.9% IV 1000 ml Route: IV; Rate: 1 bolus; Site: left forearm; ko1 11:23 Drug: Ondansetron IVP 4 mg Route: IVP; Site: left forearm; ko1 Outcome: 12:26 Discharge ordered by . rt 12:53 Discharged to home ambulatory, with family. nj1 12:53 Condition: stable 12:53 Discharge instructions given to patient, family, Instructed on discharge instructions, follow up and referral plans. medication usage, Demonstrated understanding of instructions, follow-up care, medications, Prescriptions given X 2. 12:56 Patient left the ED. nj1 Signatures: Kiersten El, RN RN Anjelica Rayo am2 Christelle Quevedo RN RN ko1 Nick Nuñez MD MD rt Raven Arteaga RN RN nj1
--- NOTE | 2023-02-07 12:27 | EDPHYS ---
Physician Documentation [facility] Name: Wiley Anne Age: 62 yrs Sex: Male : 1960 Arrival Date: 02/07/2023 Time: 10:13 Bed 2 Private MD: Jordan Juarez ED Physician Nick Nuñez HPI: 02/07 11:00 This 62 yrs old Male presents to ER via Wheelchair with complaints of Fever, rt Nausea/Vomiting. 11:00 Patient presents to the ED with nausea, vomiting, diarrhea for about 3 days now. rt Patient is try to take Zofran for the nausea, however, he is vomiting up the pill every time he tries to drink water. The patient reports loose stools. Denies hematemesis, hematochezia. He states that he has pain when he retches, but denies abdominal pain when he is not actively vomiting. Denies other acute complaints at this time. Symptoms are moderate in severity, no other aggravating or alleviating factors.. Historical: - Allergies: 10:27 No Known Allergies; hb - PMHx: 10:27 CLL; hb - PSHx: 10:27 abcess D/C; Cholecystectomy; hb - Immunization history:: Adult Immunizations up to date. - Social history:: Smoking status: . ROS: 11:00 Constitutional: Negative for fever, chills, and weight loss, Cardiovascular: Negative rt for chest pain, palpitations, and edema, Respiratory: Negative for shortness of breath, cough, wheezing, and pleuritic chest pain, MS/Extremity: Negative for injury and deformity, Skin: Negative for injury, rash, and discoloration, Neuro: Negative for headache, weakness, numbness, tingling, and seizure, Psych: Negative for depression, anxiety, suicide ideation, homicidal ideation, and hallucinations. 11:00 Abdomen/GI: Positive for nausea, vomiting, and diarrhea, Negative for abdominal pain. 11:00 Back: Positive for pain with movement, Negative for injury or acute deformity. Exam: 11:00 Constitutional: This is a well developed, well nourished patient who is awake, alert, rt and in no acute distress. Head/Face: Normocephalic, atraumatic. Chest/axilla: Normal chest wall appearance and motion. Nontender with no deformity. No lesions are appreciated. Cardiovascular: Regular rate and rhythm with a normal S1 and S2. No gallops, murmurs, or rubs. Normal PMI, no JVD. No pulse deficits. Respiratory: Lungs have equal breath sounds bilaterally, clear to auscultation and percussion. No rales, rhonchi or wheezes noted. No increased work of breathing, no retractions or nasal flaring. Abdomen/GI: Soft, non-tender, with normal bowel sounds. No distension or tympany. No guarding or rebound. No evidence of tenderness throughout. Skin: Warm, dry with normal turgor. Normal color with no rashes, no lesions, and no evidence of cellulitis. MS/ Extremity: Pulses equal, no cyanosis. Neurovascular intact. Full, normal range of motion. Neuro: Awake and alert, GCS 15, oriented to person, place, time, and situation. Cranial nerves II-XII grossly intact. Motor strength 5/5 in all extremities. Sensory grossly intact. Cerebellar exam normal. Normal gait. Psych: Awake, alert, with orientation to person, place and time. Behavior, mood, and affect are within normal limits. Vital Signs: 10:26 BP 142 / 92; Pulse 110; Resp 16; Temp 98.7; Pulse Ox 95% on R/A; Weight 57.15 kg; hb Height 5 ft. 2 in. ; Pain 6/10; 11:41 BP 131 / 76; Pulse 102; Resp 16; Pulse Ox 98% on R/A; ko1 12:50 BP 120 / 76; Pulse 100; Resp 16; Pulse Ox 93% on R/A; nj1 10:26 Body Mass Index 23.05 (57.15 kg, 157.48 cm) hb 10:26 Pain Scale: Adult hb MDM: 10:32 Patient medically screened. rt 12:28 Differential diagnosis: viral Infection, Pancreatitis. Data reviewed: vital signs, rt nurses notes, lab test result(s). I considered the following discharge prescriptions or medication management in the emergency department Medications were administered in the Emergency Department. See MAR. Test considered but Not performed: CT: Benign abdominal examination, labs. Symptoms have mostly resolved at time of the patient's arrival. He does have many CT scans in the past, believe that the risk of further radiation exposure is greater than the risk of missed surgical pathology, pancreatitis. Symptoms are not consistent with pancreatitis as he has no pain.. Care significantly affected by the following chronic conditions: CLL. Counseling: I had a detailed discussion with the patient and/or guardian regarding: the historical points, exam findings, and any diagnostic results supporting the discharge/admit diagnosis, lab results, the need for outpatient follow up, to return to the emergency department if symptoms worsen or persist or if there are any questions or concerns that arise at home. 02/07 10:39 Order name: CBC with Diff rt 02/07 10:39 Order name: CMP; Complete Time: 12:20 rt 02/07 10:39 Order name: Magnesium; Complete Time: 12:20 rt 02/07 10:39 Order name: Lipase; Complete Time: 12:20 rt 02/07 12:03 Order name: CBC Smear Scan EDMS Administered Medications: 11:23 Drug: NS 0.9% IV 1000 ml Route: IV; Rate: 1 bolus; Site: left forearm; ko1 11:23 Drug: Ondansetron IVP 4 mg Route: IVP; Site: left forearm; ko1 Disposition Summary: 02/07/23 12:26 Discharge Ordered Location: Home rt Problem: new rt Symptoms: are resolved rt Condition: Stable rt Diagnosis - Nausea with vomiting, unspecified rt Followup: rt - With: Jordan Juarez MD - When: 2 - 3 days - Reason: Discharge Instructions: - Discharge Summary Sheet rt - Nausea and Vomiting, Adult rt Forms: - Medication Reconciliation Form rt - Thank You Letter rt - Antibiotic Education rt - Prescription Opioid Use rt Prescriptions: - ondansetron 4 mg Oral Tablet,disintegrating - take 1 tablet by ORAL route every 6 hours; 18 tablet; Refills: 0, Product rt Selection Permitted - promethazine 25 mg Rectal suppository - insert 1 suppository by RECTAL route every 6 hours as needed for nausea and rt vomiting; 12 suppository; Refills: 0, Product Selection Permitted Signatures: Dispatcher [employer] EDMS Kiersten El RN RN Christelle Graham RN RN ko1 Nick Nuñez MD MD rt
[2023-02-07 13:27] VITALS: TEMP 98.7
[2023-02-07 13:29] VITALS: BP 120/76; O2SAT 93
[2023-02-07 13:46] LABS: Platelet Estimate DECR; White Blood Cell Scan OK (OK)
[2023-02-07 13:47] LABS: Blood Morphology Comment NOT SEEN (NOT SEEN)
== END 2023-02-07 12:56 | disposition home or self-care (01) ==
LOC: ER 10:13
DX: R11.2 Nausea with vomiting, unspecified (principal); R19.7 Diarrhea, unspecified; Z85.6 Personal history of leukemia
CPT/HCPCS: 85025; 36415; 83735; 83690; 80053; 96374; 99285; J2405; J7030

== ENCOUNTER 2023-02-12 08:00 | Emergency (ER) | payer OTHER ==
--- OUTSIDE RECORDS SUMMARY | 2023-02-12 08:14 | XMS REPORT | Continuity of Care Document ---
:1960 Author Organization [facility] t Address [address] [place] [address] [place] [id number] Care Team Providers Name Role Phone Jordan Juarez Mac Primary Care Physician RADHA OTTO Attending Clinician Unavailable Chris Brown MD Attending Clinician HEIDI LUGO Attending Clinician Unavailable Deniz Cervantes MD Attending Clinician Heidi Lugo MD Attending Clinician Doctor Unassigned, [place] Attending Clinician Unavailable Cherie Schmidt DO Attending [...] Unavailable Ayan PORRAS, Larisa Pedersen Attending Clinician [phone] Leticia PORRAS, Goran Attending Clinician Elizabeth PORRAS, Casie Lock Attending Clinician Cheryl Bee Attending Clinician Unavailable GENARO VELÁSQUEZ Attending Clinician Unavailable Merchant PORRAS, Ayo Attending Clinician Mian PORRAS, Isidro Attending Clinician Christen PORRAS, Genaro Doyle Attending Clinician [phone] Georgiana Clarke MD Attending Clinician SANDRA DAMICO [...] Number Effective Date Expiration Date Markell CUEVAS [id number] 2021 00:00:00 Problems Condition Condition Condition Status [...] Common chronic chronic Spirit pain pain - [facility] Allergic Allergic Problem Active Commo n rhinitis, rhinitis, Spir it seasonal seasonal - [facility] Essential Essential Problem Active Com mon (primary) (primary) Spir it hypertensi hypertensi - [facility] Paresthesi Paresthesi Problem Active C ommon a of skin a of skin Spir it - [facility] Scratched Scratched Problem Active Com mon by cat, by cat, Spirit initial initial - [facility] encounter encounter [facility] Asthmatic Asthmatic Problem Active Com mon bronchitis bronchitis Sp epifanio - [facility] 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 Tenosynovi Tenosynovi Diagnosis Active Common tis of tis of Spirit left ankle left ankle - [facility] Pain in Pain in Diagnosis Active Commo n left ankle left ankle Sp epifanio and joints and joints - [facility] of left of left foot foot [facility] Sprain of Sprain of Diagnosis Active C ommon other other Spirit ligament ligament - [facility] of left of left ankle, ankle, [facility] sequela sequela [facility] Allergies, Adverse Reactions, Alerts Allergy Allergy Status Severity Reaction(s) Onset Inactive Treating Comm ents Source Name Type Date Date Clinician No Known DA Active U 2016- [facility] Allergie -31 Clear s 00:00: Rodríguez 00 [facility] NO KNOWN Allergy Active [facility] ALLERGIE S Ondanset Adverse Active Info Not Commo n becca Reaction Available Spiri t - [facility] Lisinopr Adverse Active headache, Comm on il Reaction numbness/tin Sp epifanio gling to R - [facility] arm [facility] NO KNOWN Drug Active Univers ALLERGIE Class ity of S [place] [facility] Hydrocod Adverse Active Info Not Commo n one-Acet Reaction Available Spi rit aminophe - [facility] n [facility] Social History Social Habit Start Date Stop Date Quantity Comments Source History of tobacco Passive smoker Un iversity of use [place] [facility] History SDOH University o f Alcohol Std Drinks [place] [facility] History SDOH University o f Alcohol Binge [place] [facility] History SDOH Social Unive rsity of Connections Get [place] [facility] Together Branch History SDOH Social Unive rsity of Connections Sabianist [place] [facility] History SDOH Social Unive rsity of Connections [place] [facility] Membership [facility] History SDOH Social Unive rsity of Connections [place] [facility] Meetings [facility] Exposure to 2022-12-10 2022-12-20 [...] Physical Activity 00:00:00 00:00:00 [place] [facility] MPS Branch History SDOH 2022-11-30 2022-11-30 5 University o f Financial 00:00:00 00:00:00 [place] [facility] History SDPA Food 2022-11-30 2022-11-30 1 Univers ity of Worry 00:00:00 00:00:00 [place] [facility] History SDOH Food 2022-11-30 2022-11-30 1 Univers ity of Scarcity 00:00:00 00:00:00 [place] [facility] History [facility] 2022-11-30 2022-11-30 2 University o f Transport Med 00:00:00 00:00:00 [place] [facility] al [facility] History [facility] 2022-11-30 2022-11-30 2 University o f Transport Non-Med 00:00:00 00:00:00 [place] [facility] History [facility] 2022-11-30 2022-11-30 2 University o f Housing Unable to 00:00:00 00:00:00 [place] [facility] Pay [facility] History [facility] 2022-11-30 2022-11-30 1 University o f Housing Places 00:00:00 00:00:00 [place] [facility] daniel Lived Branch History [facility] 2022-11-30 2022-11-30 2 University o f Housing Homeless 00:00:00 00:00:00 [facility] dical Last Year Branch Alcohol intake 2022-11-29 2022-11-29 Ex-drinker [facility] 00:00:00 00:00:00 (finding) [facility] Education 2022-11-29 2022-11-29 13 [facility] 00:00:00 00:00:00 [facility] Tobacco use and 2022-07-26 2022-07-26 Smokeless Universit y of exposure 00:00:00 00:00:00 tobacco non-user [facility] dical Branch Sex Assigned At [birth year] Universit y of 00:00:00 00:00:00 [facility] Smoking Status Start Date Stop Date Source Never smoked tobacco [facility] Medications Ordered Filled Start Stop Current Ordering Indication Dosage Frequency Signature Comments Components Source Medication Medication Date Date Medication? Clinician (SIG) Name Name traMADoL No 50mg 50 mg, Univer s (ULTRAM) 11-30 Oral, ONCE ity of tablet 50 19:00: 19:19 NOW, 1 [place] mg 00 :00 dose, On Medical [facility] 11/30/22 at 1400, Routine ibrutinib [...] First dose Medi daniel 40 mg on [facility] 11/30/22 at 0900, Until Discontinu ed, Routine enoxaparin 2022-0 Yes 40mg 40 mg, Unive rs (LOVENOX) 11-30 Subcutaneo ity of injection 14:00: [place]ILY[place] 40 mg 00 First dose Medical on [facility] 11/30/22 at 0900, Until Discontinu ed, Routine tamsulosin 0 Yes .4mg 0.4 mg, Univ ers (FLOMAX) 11-30 Oral, ity of capsule 0.4 14:00: DAILY, [place] 00 First dose Medical on [facility] 11/30/22 at 0900, Until Discontinu ed, Routine ibrutinib 0 Yes 420mg 420 mg, Univ ers (IMBRUVICA) 11-30 Oral, ity of capsule 420 14:00: DAILY, [place] 00 First dose Medical on [facility] 11/30/22 at 0900, Until Discontinu ed iopamidol 0 2022- No [id number] 80mL 80 mL, Univers (ISOVUE 11-30 Intravenou ity o f 370-500 mL) 01:02: 01:15 s, ONCE, 1 [place] injection 00 :00 dose, On Medica l 80 mL [facility] 11/29/22 at 2015, Routine cyclobenzap 2022-0 Yes 5mg 5 mg, Unive rs rine 11-30 Oral, TID, ity of (FLEXERIL) 01:00: First dose [place] tablet 5 mg 00 on [facility] Medica l 11/29/22 at Branch 2000, Until Discontinu ed, Routine ondansetron 0 Yes 4mg 4 mg, Slow Univers (ZOFRAN 11-29 IV Push, ity of (PF)) 23:14: Q6HPRN, [place] injection 4 01 Starting Medi daniel mg on [facility] Branch 11/29/22 at 1814, Until Discontinu ed, Routine, Nausea and Vomiting (N/V) albuterol 0 Yes 2.5mg 2.5 mg, Univ ers (PROVENTIL) 11-29 Inhalation it y of 2.5 mg /3 23:10: , Q4HPRN, [place] mL (0.083 46 Starting Medica l %) on [facility] nebulizer 11/29/22 at solution 1810, 2.5 mg Until Discontinu ed, Shortness of Breath ondansetron 2022-0 202- No 4mg 4 mg, Univ ers (ZOFRAN-ODT 11-29 Oral, ity of ) 22:45: 22:09 ONCE, 1 [place] disintegrat 00 :00 dose, On Medi daniel ing tablet [facility] 4 mg 11/29/22 at 1745, Routine HYDROcodone 2022-0 2022- No 1{tbl} 1 tablet, Univers -acetaminop 11-29 Oral, ity of hen (NORCO 22:00: 22:10 ONCE, 1 [place] 5) 5-325 mg 00 :00 dose, On Medi daniel tablet 1 [facility] tablet 11/29/22 at 1700, VIVIENNE ibrutinib 2021-09 Yes 1{tbl} Take 1 Univ ers (IMBRUVICA) 2-03 tablet by ity of 420 mg Tab 13:21: mouth in [place] 14 the Medical morning. [place] ALBUTEROL 2021-09 Yes Inhale as Uni vers INHALE 2-03 needed. ity of 13:21: [address] ibrutinib 2021-09 Yes 1{tbl} Take 1 Univ ers (IMBRUVICA) 2-03 tablet by ity of 420 mg Tab 13:21: mouth in [place] 14 the Medical morning. Branch ALBUTEROL 2021-09 Yes Inhale as Uni vers INHALE 2-03 needed. ity of 13:21: [address] 2021-09 Yes 1{tbl} Take 1 Univ ers (IMBRUVICA) 2-03 tablet by ity of 420 mg Tab 13:21: mouth in [place] 14 the Medical morning. Branch ALBUTEROL 2021-09 Yes Inhale as Uni vers INHALE 2-03 needed. ity of 13:21: [address] ibrutinib 2021-09 Yes 1{tbl} Take 1 Univ ers (IMBRUVICA) 2-03 tablet by ity of 420 mg Tab 13:21: mouth in [place] 14 the Medical morning. Branch ALBUTEROL 2021-09 Yes Inhale as Uni vers INHALE 2-03 needed. ity of 13:21: [address] 2021-09 Yes 1{tbl} Take 1 Univ ers (IMBRUVICA) 2-03 tablet by ity of 420 mg Tab 13:21: mouth in [place] 14 the Medical morning. Branch ALBUTEROL 2021-09 Yes Inhale as Uni vers INHALE 2-03 needed. ity of 13:21: [address] 2021-09 Yes 1{tbl} Take 1 Univ ers (IMBRUVICA) 2-03 tablet by ity of 420 mg Tab 13:21: mouth in [place] 14 the Medical morning. Branch ALBUTEROL 2021-09 Yes Inhale as Uni vers INHALE 2-03 needed. ity of 13:21: [address] 2021-09 Yes 1{tbl} Take 1 Univ ers (IMBRUVICA) 2-03 tablet by ity of 420 mg Tab 13:21: mouth in [place] 14 the Medical morning. Branch ALBUTEROL 2021-09 Yes Inhale as Uni vers INHALE 2-03 needed. ity of 13:21: [address] ibrutinib 2021-09 Yes 1{tbl} Take 1 Univ ers (IMBRUVICA) 2-03 tablet by ity of 420 mg Tab 13:21: mouth in [place] 14 the Medical morning. Branch ALBUTEROL 2021-09 Yes Inhale as Uni vers INHALE 2-03 needed. ity of 13:21: [address] iohexol 2021-09- No [id number] 100mL 100 mL, Univers (OMNIPAQUE 2-03 12-03 Injection, it y of 300-100 mL) 01:45: 01:36 ONCE, 1 [place] injection 00 :00 dose, On Medica l 100 mL Fri [place] 08/06/22 at 1945, Routine lidocaine 2021-09 Yes PRN, Univers 1% (PF) 203 Starting ity of (XYLOCAINE) 00:25: on Fri [place] 08 08/06[place]22 at [facility] [address] Until Discontinu ed, Routine FENTanyl PF 2021-09 Yes Slow IV Uni vers (SUBLIMAZE 2 Push, PRN, ity of (PF)) 00:25: Starting [place] injection 04 on [facility] 08/06/22 at [place] 1825, Until Discontinu ed, Routine midazolam 2021-09 Yes IV Push, Univ ers (VERSED) 2-03 PRN, ity of injection 00:25: [place] 03 on [facility] 08/06/22 at [place] 1825, Until Discontinu ed, Routine levoFLOXaci 2021-09- No [id number] 750mg Take 1 Univers n 750 mg 10-08 8 tablet by ity o f tablet 00:00: 05:59 mouth [place] 00 :00 every 24 Medical ([facility] ur) hours for 2 days. levoFLOXaci 2021-09- No [id number] 750mg Take 1 Univers n 750 mg 10-08 8 tablet by ity o f tablet 00:00: 05:59 mouth [place] 00 :00 every 24 Medical ([facility] ur) hours for 2 days. amoxicillin 2021-09- No [id number] 1{tbl} Take 1 Univers -clavulanat 10-08 8 tablet by it y of e 875-125 00:00: 00:00 mouth in [place] mg per 00 :00 the Medical tablet morning Branch and 1 tablet in the evening. Do all this for 2 days. amoxicillin 2021-09- No [id number] 1{tbl} Take 1 Univers -clavulanat 10-08 8 [...] on 08/02/22 at 1215, Last dose on [place] 08/08/22 at 1215, 20 mL
Reas on for Anti-Infec tive: Documented Infection& lt;br>Docu mented Infection Site: Abdominal< br>Duratio n of Therapy: 7 days cefTRIAXone 2021-09 No 1000mg 1,000 mg, Univers (ROCEPHIN) 10-01 Intravenou it y of 1,000 mg in 18:15: 16:45 s, Q24H [place] NaCl 0.9% 00 :56 ABX, 5 Medical (NS) 50 mL doses, Branch MINI-BAG First dose on [place] 08/01/22 at 1215, Last dose on [place] 08/05/22 at 1215, Administer over 30 Minutes, 50 mL
Reas on for Anti-Infec tive: Documented Infection< br>Documen loki Infection Site: Abdominal< br>Duratio n of Therapy: 7 days KCL 20 2021-09 No 40meq 40 mEq, Univer s mEq/15 mL 10-01 Oral, ity of solution 40 15:30: 15:29 ONCE, 1 [place] mEq 00 :00 dose, On Medical [place] Branch 08/01/22 at 0930, Routine KCL 20 2021-09 No 40meq 40 mEq, Univer s mEq/15 mL 09-30 Oral, ity of solution 40 14:00: 15:03 ONCE, 1 [place] mEq 00 :00 dose, On [facility] Branch 07/31/22 at 0800, Routine piperacilli 2021-09- [...] [place] mEq 00 :00 dose, On [facility] Tue [place] 07/30/22 at 0900, Routine lactated 2021-09 No [...] 09-29 Oral, ity of (TYLENOL) 12:08: Q6HPRN, [place] tablet 650 17 Starting Medic al mg on Tue Branch 07/30/22 at 0608, Until Discontinu ed, Routine, Pain (scale 1-3), Temp > 38.5 C pantoprazol 2021-09 Yes 40mg 40 mg, Univ ers e 09-28 Oral, ity of (PROTONIX) 16:30: DAILY, [place] EC tablet 00 First dose Medi daniel [...] Tue07/28/22 at 1945, Routine iohexol 2021-09- No [id number] 100mL 100 mL, Univers (OMNIPAQUE 09-27 Injection, it y of 300-100 mL) 22:00: 21:59 ONCE, 1 [place] injection 00 :00 dose, On Medica l 100 mL [facility] Branch 07/28/22 at 1600, Routine piperacilli 2021-09- No [id number] 3.375g 3.375 g, Univers n-tazobacta 09-27 IV [...] 21:45 Starting [place] injection 00 :52 on [facility] 07/28/22 Branch at 1157, Until Discontinu ed, Routine midazolam 2021-09- No IV Push, Uni vers (VERSED) 09-27 PRN, ity of injection 17:56: 20:52 Starting [place] 00 :00 on [facility] 07/28/22 Branch at 1156, Until Discontinu ed, Routine ondansetron 2021-09- No Slow IV Un brayan (ZOFRAN 09-27 Push, PRN, ity o f (PF)) 17:51: 17:51 Starting [place] injection 05 :05 on [facility] 07/28/22 Branch at 1151, Until Discontinu ed, Routine gadobenate 2021-09- No [id number] .2mL/kg 9.7 mL Univers dimeglumine 09-27 (0.2 mL/kg i ty of (MULTIHANCE 04:30: 04:11 ?48.5 kg), [place] -10 mL) 00 :00 Intravenou Medica l injection s, ONCE, 1 Bran ch 9.7 mL dose, On Tue07/27/22 at 2230, Routine maalox:diph 2021-09 Yes 15mL 15 mL, [facility] ers enhydrAMINE 09-27 Oral, ity of :lidocaine 01:45: DAILY, [place] 2 % viscous 00 First dose Me dical 1:1:1 on [facility] Branch (FIRST-MOUT 07/27/22 HWASH BLM) at 1945, oral Until suspension Discontinu 15 mL ed, Routine FENTanyl PF 2021-09- No Slow IV Un br[place] (SUBLIMAZE 09-26 Push, PRN, it y of (PF)) 23:22: 23:49 Starting [place] injection 40 :07 on [facility] 07/27/22 Branch at 1722, Until Discontinu ed, Routine midazolam 2021-09- No IV Push, Uni vers (VERSED) 09-26 PRN, ity of injection 23:22: 23:49 Starting [place] 33 :01 on [facility] 07/27/22 Branch at 1722, Until Discontinu [...] n tamsulosin 2022-1 Yes .4mg 0.4 mg, [facility] ers (FLOMAX) 09-26 Oral, ity of capsule 0.4 15:00: DAILY, [place] mg 00 First dose Medical on Tue07/27/22 at 0900, Until Discontinu ed, Routine KCL 2021-09- No 40meq 40 mEq, Univers (KLOR-CON 09-26 Oral, ity of M20) tablet 10:00: 09:34 ONCE, 1 [place] 40 mEq 00 :00 dose, On Medical Tue07/27/22 at 0400, Routine simethicone 2021-09 Yes 80mg 80 mg, [facility] ers (GAS RELIEF 09-26 Oral, ity of (SIMETHICON 09:15: PC+HS, [place] E)) 00 First dose Medical chewable on Tue tablet 80 07/27/22 mg at 0315, Until Discontinu ed, Routine lactated 2021-09- No 1000mL at 125 [facility] ers ringers IV 09-25 11-29 mL/hr, ity of infusion 22:15: 16:45 1,000 mL, [place] 1,000 mL 00 :21 IV Medical Infusion, Branch CONTINUOUS , Starting on Tue07/26/22 at 1615, Until Tue08/03/22 at 1045, Routine lactated 2021-09- No 1000mL at 999 [facility] ers ringers IV 09-25 11-21 mL/hr, ity [...] vers INHALE 1-21 needed. ity of 14:11: [address] ibrutinib 2021-09 Yes 1{tbl} Take 1 Univ ers (IMBRUVICA) 1-21 tablet by ity of 420 mg Tab 14:11: mouth in [place] 06 the Medical morning. Branch ALBUTEROL 2021-09 Yes Inhale as Uni vers INHALE 1-21 needed. ity of 14:11: [address] ibrutinib 2021-09 Yes 1{tbl} Take 1 Univ ers (IMBRUVICA) 1-21 tablet by ity of 420 mg Tab 14:11: mouth in [place] 06 the Medical morning. Branch ALBUTEROL 2021-09 Yes Inhale as Uni vers INHALE 1-21 needed. ity of 14:11: [address] ibrutinib 2021-09 Yes 1{tbl} Take 1 Univ ers (IMBRUVICA) 1-21 tablet by ity of 420 mg Tab 14:11: mouth in [place] 06 the Medical morning. Branch ALBUTEROL 2021-09 Yes Inhale as Uni vers INHALE 1-21 needed. ity of 14:11: [address] ibrutinib 2021-09 Yes 1{tbl} Take 1 Univ ers (IMBRUVICA) 1-21 tablet by ity of 420 mg Tab 14:11: mouth in [place] 06 the Medical morning. Branch ALBUTEROL 2021-09 Yes Inhale as Uni vers INHALE 1-21 needed. ity of 14:11: [address] ibrutinib 2021-09 Yes 1{tbl} Take 1 Univ ers (IMBRUVICA) 1-21 tablet by ity of 420 mg Tab 14:11: mouth in [place] 06 the Medical morning. Branch ALBUTEROL 2021-09 Yes Inhale as Uni vers INHALE 1-21 needed. ity of 14:11: [address] ibrutinib 2021-09 Yes 1{tbl} Take 1 Univ ers (IMBRUVICA) 1-21 tablet by ity of 420 mg Tab 14:11: mouth in [place] 06 the Medical morning. Branch ALBUTEROL 2021-09 Yes Inhale as Uni vers INHALE 1-21 needed. ity of 14:11: [address] iopamidol 2021-09- No [id number] 80mL 80 mL, Univers (ISOVUE 09-09 Intravenou [...] Tab 12:20: mouth Medica l 21 daily. [place] ibrutinib 2021-09 Yes 420mg QD Take [address] (Imbruvica) 0-31 mg by [facility] mg Tab 12:20: mouth Medica l 21 daily. [place] ibrutinib 2021-09 Yes 420mg QD Take [address] (Imbruvica) 0-31 mg by [facility] 420 mg Tab 12:20: mouth Medica l 21 daily. [place] ibrutinib 2021-09 Yes 420mg QD Take [address] (Imbruvica) 0-31 mg by [facility] 420 mg Tab 12:20: mouth Medica l 21 daily. [place] tamsulosin 2022-1 Yes [id number] .4mg Take 1 U nivers 0.4 mg 24 0-24 capsule by ity of hr capsule 00:00: mouth in [place] 00 the Medical morning. Branch tamsulosin 2021-1 Yes [id number] .4mg Take 1 U nivers 0.4 mg 24 0-24 capsule by ity of hr capsule 00:00: mouth in [place] 00 the Medical morning. Branch tamsulosin 2021-1 Yes [id number] .4mg Take 1 U nivers 0.4 mg 24 0-24 capsule by ity of hr capsule 00:00: mouth in [place] 00 the Medical morning. Branch tamsulosin 2021-1 Yes [id number] .4mg Take 1 U nivers 0.4 mg 24 0-24 capsule by ity of hr capsule 00:00: mouth in [place] 00 the Medical morning. Branch tamsulosin 2021-1 Yes [id number] .4mg Take 1 U nivers 0.4 mg 24 0-24 capsule by ity of hr capsule 00:00: mouth in [place] 00 the Medical morning. Branch tamsulosin 2021-1 Yes [id number] .4mg Take 1 U nivers 0.4 mg 24 0-24 capsule by ity of hr capsule 00:00: mouth in [place] 00 the Medical morning. Branch tamsulosin 2021-1 Yes [id number] .4mg Take 1 U nivers 0.4 mg 24 0-24 capsule by ity of hr capsule 00:00: mouth in [place] 00 the Medical morning. Branch tamsulosin 2021-1 Yes [id number] .4mg Take 1 U nivers 0.4 mg 24 0-24 capsule by ity of hr capsule 00:00: mouth in [place] 00 the Medical morning. Branch tamsulosin 2021-1 Yes [id number] .4mg Take 1 U nivers 0.4 mg 24 0-24 capsule by ity of hr capsule 00:00: mouth in [place] 00 the Medical morning. Branch tamsulosin 2021-1 Yes [id number] .4mg Take 1 U nivers 0.4 mg 24 0-24 capsule by ity of hr capsule 00:00: mouth in [place] 00 the Medical morning. Branch tamsulosin 2021-1 Yes [id number] .4mg Take 1 U nivers 0.4 mg 24 0-24 capsule by ity of hr capsule 00:00: mouth in [place] 00 the Medical morning. Branch tamsulosin 2021- Yes [id number] .4mg Take 1 U nivers 0.4 mg 24 0-24 capsule by ity of hr capsule 00:00: mouth in [place] 00 the Medical morning. Branch tamsulosin 2021-1 Yes [id number] .4mg Take 1 U nivers 0.4 mg 24 0-24 capsule by ity of hr capsule 00:00: mouth in [place] 00 the Medical morning. Branch tamsulosin 2021-1 Yes [id number] .4mg Take 1 U nivers 0.4 mg 24 0-24 capsule by ity of hr capsule 00:00: mouth in [place] 00 the Medical morning. Branch tamsulosin 2021- Yes [id number] .4mg Take 1 U nivers 0.4 mg 24 0-24 capsule by ity of hr capsule 00:00: mouth in [place] 00 the Medical morning. Branch tamsulosin 2021- Yes [id number] .4mg Take 1 U nivers 0.4 mg 24 0-24 capsule by ity of hr capsule 00:00: mouth in [place] 00 the Medical morning. Branch tamsulosin 2021-09 Yes [id number] .4mg Take 1 U nivers 0.4 mg 24 0-24 capsule by ity of hr capsule 00:00: mouth in [place] 00 the Medical morning. Branch tamsulosin 2021- Yes [id number] .4mg Take 1 U nivers 0.4 mg 24 0-24 capsule by ity of hr capsule 00:00: mouth in [place] 00 the Medical morning. Branch tamsulosin 2021-1 Yes [id number] .4mg Take 1 U nivers 0.4 mg 24 0-24 capsule by ity of hr capsule 00:00: mouth in [place] 00 the Medical morning. Branch tamsulosin 2021-1 Yes [id number] .4mg Take 1 U nivers 0.4 mg 24 0-24 capsule by ity of hr capsule 00:00: mouth in [place] 00 the Medical morning. Branch tamsulosin 2021- 2023- No [id number] .4mg Take 1 Univers 0.4 mg 24 [...] vers INHALE 0-23 needed. ity of 14:20: [place] [address] Medical Branch ibrutinib 2021-09 Yes 1{tbl} Take 1 Univ ers (IMBRUVICA) 0-23 tablet by ity of 420 mg Tab 14:20: mouth in [place] 29 the Medical morning. Branch ALBUTEROL 2021-09 Yes Inhale as Uni vers INHALE 0-23 needed. ity of 14:20: [address] Branch ibrutinib 2021-09 Yes 1{tbl} Take 1 Univ ers (IMBRUVICA) 0-23 tablet by ity of 420 mg Tab 14:20: mouth in [place] 29 the Medical morning. Branch ALBUTEROL 2021-09 Yes Inhale as Uni vers INHALE 0-23 needed. ity of 14:20: [address] Branch ibrutinib 2021-09 Yes 1{tbl} Take 1 Univ ers (IMBRUVICA) 0-23 tablet by ity of 420 mg Tab 14:20: mouth in [place] 29 the Medical morning. Branch ALBUTEROL 2021-09 Yes Inhale as Uni vers INHALE 0-23 needed. ity of 14:20: [address] Branch ibrutinib 2021-09 Yes 1{tbl} Take 1 Univ ers (IMBRUVICA) 0-23 tablet by ity of 420 mg Tab 14:20: mouth in [place] 29 the Medical morning. Branch ALBUTEROL 2021-09 Yes Inhale as Uni vers INHALE 0-23 needed. ity of 14:20: [address] Branch cyclobenzap 2021-09 Yes [id number] 5mg Take 1 Univers rine 5 mg 0-23 tablet by ity o f tablet 00:00: mouth in [place] the Medical morning Branch and 1 tablet at noon and 1 tablet in the evening. cyclobenzap 2021-09 Yes [id number] 5mg Take 1 Univers rine 5 mg 0-23 tablet by ity o f tablet 00:00: mouth in [place] the Medical morning Branch and 1 tablet at noon and 1 tablet in the evening. cyclobenzap 2021-09 Yes [id number] 5mg Take 1 Univers rine 5 mg 0-23 tablet by ity o f tablet 00:00: mouth in [place] 00 the Medical morning Branch and 1 tablet at noon and 1 tablet in the evening. cyclobenzap 2021-09 Yes [id number] 5mg Take 1 Univers rine 5 mg 0-23 tablet by ity o f tablet 00:00: mouth in [place] 00 the Medical morning Branch and 1 tablet at noon and 1 tablet in the evening. cyclobenzap 2021-09 Yes [id number] 5mg Take 1 Univers rine 5 mg 0-23 tablet by ity o f tablet 00:00: mouth in [place] 00 the Medical morning Branch and 1 tablet at noon and 1 tablet in the evening. cyclobenzap 2021-09 Yes [id number] 5mg Take 1 Univers rine 5 mg 0-23 tablet by ity o f tablet 00:00: mouth in [place] 00 the Medical morning Branch and 1 tablet at noon and 1 tablet in the evening. cyclobenzap 2021-09 Yes [id number] 5mg Take 1 Univers rine 5 mg 0-23 tablet by ity o f tablet 00:00: mouth in [place] 00 the Medical morning Branch and 1 tablet at noon and 1 tablet in the evening. cyclobenzap 2021-09 Yes [id number] 5mg Take 1 Univers rine 5 mg 0-23 tablet by ity o f tablet 00:00: mouth in [place] 00 the Medical morning Branch and 1 tablet at noon and 1 tablet in the evening. cyclobenzap 2021-09 Yes [id number] 5mg Take 1 Univers rine 5 mg 0-23 tablet by ity o f tablet 00:00: mouth in [place] 00 the Medical morning Branch and 1 tablet at noon and 1 tablet in the evening. cyclobenzap 2021-09 Yes [id number] 5mg Take 1 Univers rine 5 mg 0-23 tablet by ity o f tablet 00:00: mouth in [place] 00 the Medical morning Branch and 1 tablet at noon and 1 tablet in the evening. cyclobenzap 2021-09 Yes [id number] 5mg Take 1 Univers rine 5 mg 0-23 tablet by ity o f tablet 00:00: mouth in [place] 00 the Medical morning Branch and 1 tablet at noon and 1 tablet in the evening. cyclobenzap 2021-09 Yes [id number] 5mg Take 1 Univers rine 5 mg 0-23 tablet by ity o f tablet 00:00: mouth in [place] 00 the Medical morning Branch and 1 tablet at noon and 1 tablet in the evening. cyclobenzap 2021-09 Yes [id number] 5mg Take 1 Univers rine 5 mg 0-23 tablet by ity o f tablet 00:00: mouth in [place] 00 the Medical morning Branch and 1 tablet at noon and 1 tablet in the evening. cyclobenzap 2021-09 Yes [id number] 5mg Take 1 Univers rine 5 mg 0-23 tablet by ity o f tablet 00:00: mouth in [place] 00 the Medical morning Branch and 1 tablet at noon and 1 tablet in the evening. cyclobenzap 2021-09 Yes [id number] 5mg Take 1 Univers rine 5 mg 0-23 tablet by ity o f tablet 00:00: mouth in [place] 00 the Medical morning Branch and 1 tablet at noon and 1 tablet in the evening. cyclobenzap 2021-09 Yes [id number] 5mg Take 1 Univers rine 5 mg 0-23 tablet by ity o f tablet 00:00: mouth in [place] 00 the Medical morning Branch and 1 tablet at noon and 1 tablet in the evening. cyclobenzap 2021-09 Yes [id number] 5mg Take 1 Univers rine 5 mg 0-23 tablet by ity o f tablet 00:00: mouth in [place] 00 the Medical morning Branch and 1 tablet at noon and 1 tablet in the evening. cyclobenzap 2021-09 Yes [id number] 5mg Take 1 Univers rine 5 mg 0-23 tablet by ity o f tablet 00:00: mouth in [place] 00 the Medical morning Branch and 1 tablet at noon and 1 tablet in the evening. cyclobenzap 2021-09 Yes [id number] 5mg Take 1 Univers rine 5 mg 0-23 tablet by ity o f tablet 00:00: mouth in [place] 00 the Medical morning Branch and 1 tablet at noon and 1 tablet in the evening. cyclobenzap 2021-09 Yes [id number] 5mg Take 1 Univers rine 5 mg 0-23 tablet by ity o f tablet 00:00: mouth in [place] 00 the Medical morning Branch and 1 tablet at noon and 1 tablet in the evening. cyclobenzap 2021-09 No [id number] 5mg Take 1 Univers rine 5 mg [...] Indication s: acute pain cyclobenzap 2021-09 No [id number] 5mg Take 1 Univers rine 5 mg [...] Indication s: acute pain iopamidol 2021-09 No [id number] 65mL 65 mL, U nivers (ISOVUE 0-26 [...] Routine, Pain (scale 7-10) iopamidol 2021-09- No [id number] 200mL 200 mL, Univers (ISOVUE 006-25 Enteral, ity of 300-100 mL) 18:02: 18:35 TITRATE - [place] injection 00 :00 FOR Medical 200 mL [...] vers INHALE 0-20 needed. ity of 15:04: [address] ibrutinib 2021-09 Yes 1{tbl} Take 1 Univ ers (IMBRUVICA) 0-20 tablet by ity of 420 mg Tab 15:04: mouth in [place] 41 the Medical morning. Branch ALBUTEROL 2021-09 Yes Inhale as Uni vers INHALE 0-20 needed. ity of 15:04: [address] Indomethaci 2021-09 PRN, Unive rs n (INDOCIN) 0-19 06-23 Starting ity of suppository 15:07: 18:22 on Tue [place] 00 :35 06/23/22 Medical at 1007, Branch Until Tue06/23/22 at 1322, Routine, Intra-op ibrutinib 2021-09 Yes 1{tbl} Take 1 Univ ers (IMBRUVICA) 0-19 tablet by ity of 420 mg Tab 13:22: mouth in [place] 35 the Medical morning. [place] ALBUTEROL 2021-09 Yes Inhale as Uni vers INHALE 0-19 needed. ity of 13:22: [address] tamsulosin 2021-09 Yes .4mg 0.4 mg, Univ ers (FLOMAX) 0-18 Oral, ity of capsule 0.4 22:45: [place] First [place] Medical on [facility] 06/22/22 at 1745, Until Discontinu ed, Routine tamsulosin 2021-09 Yes .4mg 0.4 mg, Univ ers (FLOMAX) 0-18 Oral, ity of capsule 0.4 22:45: [place]ILY[place] 00 First dose Medical on [facility] 06/22/22 at 1745, Until Discontinu ed, Routine aquaphilic 2021-09 Yes Topical, Uni vers ointment 0-18 PRN, ity of (AQUAPHOR) 22:43: Starting [place] ointment 14 on [facility] 06/22/22 Branch at 1743, Until Discontinu ed, Routine, put under pad for minor wound care aquaphilic 2021-09 Yes Topical, Uni vers ointment 0-18 PRN, ity of (AQUAPHOR) 22:43: Starting [place] ointment 14 on [facility] Medical 06/22/22 Branch at 1743, Until Discontinu ed, Routine, put under pad for minor wound care tc 2021-09- No [id number] 4.9mCi 4.9 Univer s 99m-mebrofe 0-17 10-17 millicurie i ty of [place] 20:15: 20:10 , [place] injection 00 :00 Intravenou Medi daniel 4.9 s, ONCE, 1 Branch millicurie dose, On 06/21/22 at 1515, Routine ondansetron 2021-09 Yes 4mg 4 mg, Unive rs (ZOFRAN-ODT 0-17 Oral, ity of ) 02:00: Q8HPRN, [place] disintegrat 09 Starting Medi daniel ing tablet on [facility] 4 mg 06/20/22 at 2100, Until Discontinu ed, Routine, Nausea and Vomiting (N/V) ondansetron 2021-09- No 4mg 4 mg, Univ ers (ZOFRAN-ODT 0-17 - Oral, ity of ) 02:00: 10:31 Q8HPRN, [place] disintegrat 09 :55 Starting Medi daniel ing tablet on [facility] 4 mg 06/20/22 at 2100, Until 06/26/22 at 0531, Routine, Nausea and Vomiting (N/V) ibrutinib 2021-09 Yes 420mg 420 mg, Univ ers (IMBRUVICA) 0-15 Oral, ity of Tab 420 mg 14:00: DAILY, [place] [id number] First dose Medical on [facility] Branch 06/19/22 at 0900, Until Discontinu ed, Routine ibrutinib 2021-09 Yes 420mg 420 mg, Univ ers (IMBRUVICA) 0-15 Oral, ity of Tab 420 mg 14:00: DAILY, [place] 00 First dose Medical on [facility] Branch 06/19/22 at 0900, Until Discontinu ed, Routine iohexol 2021-09- No [id number] 80mL 80 mL, Uni vers (OMNIPAQUE 0-15 10-15 Intravenou it y of 350 07:45: 07:42 s, ONCE, 1 [place] BULK-100 00 :00 dose, On Medical mL) [facility] injection 06/19/22 80 mL at 0245, Routine enoxaparin 2021-09 Yes 40mg 40 mg, Unive rs (LOVENOX) 0-14 Subcutaneo ity of injection 22:00: [place], DAILY, [place] 40 mg 00 First dose Medical on Tue [place] 06/18/22 at 1700, Until Discontinu ed, Routine enoxaparin 2021-09 Yes 40mg 40 mg, Unive rs (LOVENOX) 0-14 Subcutaneo ity of injection 22:00: [place], [place]ILY, [place] 40 mg 00 First dose Medical on Tue [place] 06/18/22 at 1700, Until Discontinu ed, Routine ondansetron 2021-09 4mg 4 mg, Univ ers (ZOFRAN) 0-14 10-17 Oral, ity of tablet 4 mg 11:45: 02:00 Q6HPRN, [place] :25 Starting Medical on Tue [place] 06/18/22 at 0645, Until 06/20/22 at 2100, Routine, Nausea and Vomiting (N/V) acetaminoph 2021-09 Yes 1{tbl} 1 tablet, Univers en-codeine 0-14 Oral, ity of (TYLENOL 11:45: Q4HPRN, [place] #3) 300-30 21 Starting Medic al mg tablet 1 on Tue [place] tablet 06/18/22 at 0645, Until Discontinu ed, Routine, Pain (scale 4-6) acetaminoph 2021-09 Yes 1{tbl} 1 tablet, Univers en-codeine 0-14 Oral, ity of (TYLENOL 11:45: Q4HPRN, [place] #3) 300-30 21 Starting Medic al mg tablet 1 on Tue [place] tablet 06/18/22 at 0645, Until Discontinu ed, [...] of therapy: 5 days gadobenate 2021-09- No [id number] .2mL/kg 10.06 mL Univers dimeglumine 006-18 (0.2 [...] 0-14 Oral, ity of (TYLENOL) 05:01: Q6HPRN, [place] tablet 650 49 Starting Medic al mg on Tue Branch 06/18/22 at 0001, Until Discontinu ed, Routine, Pain (scale 1-3) acetaminoph 2021-09 Yes 650mg 650 mg, Un brayan en 0-14 Oral, ity of (TYLENOL) 05:01: Q6HPRN, [place] tablet 650 49 Starting Medic al mg on Tue Branch 06/18/22 at 0001, Until Discontinu ed, Routine, Pain (scale 1-3) albuterol 2021-09 Yes 1{puff} 1 Puff, Un brayan (VENTOLIN) 0-14 Inhalation ity of inhaler 1 04:59: , Q4HPRN, [place] Puff 21 Starting Medical on [facility] 06/17/22 at 2359, Until Discontinu ed, Wheezing, Shortness of Breath, Bronchospa sm, Chest tightness albuterol 2021-09 Yes 1{puff} 1 Puff, Un [place] (VENTOLIN) 0-14 Inhalation ity of inhaler 1 04:59: , Q4HPRN, [place] Puff 21 Starting Medical on [facility] 06/17/22 at 2359, Until Discontinu ed, Wheezing, Shortness of Breath, Bronchospa sm, Chest tightness iopamidol 2021-09- No [id number] 70mL 70 mL, Univers (ISOVUE 0-13 -13 Intravenou ity o f 370-500 mL) 23:15: 22:16 s, ONCE, 1 [place] injection 00 :00 dose, On Medica l 70 mL [facility] Branch 06/17/22 at 1815, Routine ondansetron 2021-09- No 4mg 4 mg, Slow Univers (ZOFRAN 0-17 06- IV Push, ity of (PF)) 20:00: 21:15 ONCE, 1 [place] injection 4 00 :00 dose, On Medi daniel mg [facility] Branch 06/17/22 at 1500, STAT morpHINE (4 [...] HI St -clavulanat 05-19 tablet by Brandi Ozy Medias e 00:00: 23:59 mouth 2 Medical (AUGMENTIN) 00 :00 (two) Center 875-125 mg times per tablet daily for 5 days. amoxicillin 2-0 2022- No 1{tbl} Q.5D Take [address] -clavulanat 05-19 tablet by Brandi Ozy Medias e 00:00: 23:59 mouth 2 Medical (AUGMENTIN) [...] Common 4-11 [facility] Spirit 00:00: - 00 [facility] Fluticasone Fluticasone Yes [place] 1 spray in Common Propionate Propionate Kamara each Spi rit nostril [facility] ProAir ProAir Yes [place] 2 puffs as Co mmon RespiClick RespiClick Kamara needed S pirit [facility] Vitamin Vitamin Yes [place] not Common B-12 B-12 Kamara defined [facility] Centrum Centrum Yes [place] not Common Adults Adults Kamara defined [facility] Allopurinol Allopurinol Yes [place] 1 tablet Common Kamara [facility] Vital Signs Vital Name Observation Time Observation Value Comments Source Systolic blood 2022-11-30 17:24:00 160 mm[Hg] Univer sity [facility] Diastolic blood 2022-11-30 17:24:00 90 mm[Hg] Unive [facility] Heart rate 2022-11-30 17:24:00 70 /min [facility] Body temperature 2022-11-30 17:24:00 36.22 Yam[place] [facility] Respiratory rate 2022-11-30 17:24:00 16 /min [facility] Oxygen saturation in 2022-11-30 17:24:00 96 /min University of Arterial blood by [facility] Pulse oximetry Branch Body height 2022-11-30 01:00:00 157.5 cm Universi ty [facility] [place] [facility] Body weight 2022-11-30 01:00:00 56.7 kg [facility] [place] [facility] BMI 2022-11-30 01:00:00 22.86 kg/m2 [facility] [place] [facility] Systolic blood 2022-08-07 13:08:00 128 mm[Hg] Univer sity of pressure [place] [facility] Diastolic blood 2022-08-07 13:08:00 78 mm[Hg] Unive rsity of pressure [place] [facility] Heart rate 2022-08-07 13:08:00 78 /min [facility]i [facility] [place] [facility] Body temperature 2022-08-07 13:08:00 37.06 [place] Univ ersity [facility] [place] [facility] Respiratory rate 2022-08-07 13:08:00 16 /min Univ ersity [facility] [place] [facility] Oxygen saturation in 2022-08-07 13:08:00 95 /min University of Arterial blood by [facility] Pulse oximetry Branch Body height 2022-07-28 15:52:00 157.5 cm Universi ty [facility] [place] [facility] Body weight 2022-07-28 15:52:00 48.535 kg [facility]i [facility] [place] [facility] BMI 2022-07-28 15:52:00 19.57 kg/m2 [facility] [place] [facility] Systolic blood 2022-07-12 17:06:00 120 mm[Hg] Univer sity of pressure [place] [facility] Diastolic blood 2022-07-12 17:06:00 77 mm[Hg] Unive rsity of pressure [place] [facility] Heart rate 2022-07-12 17:06:00 71 /min [facility]i ty [facility] [place] [facility] Body temperature 2022-07-12 17:06:00 36.61 [place] Univ ersity [facility] [place] [facility] Respiratory rate 2022-07-12 17:06:00 18 /min Univ ersity [facility] [place] [facility] Body height 2022-07-12 17:06:00 157.5 cm [facility]i [facility] [place] [facility] Body weight 2022-07-12 17:06:00 52.98 kg [facility]i ty [facility] [place] [facility] BMI 2022-07-12 17:06:00 21.36 kg/m2 [facility] [place] [facility] Systolic blood 2022-07-10 03:00:00 123 mm[Hg] Univer sity of pressure [place] [facility] Diastolic blood 2022-07-10 03:00:00 80 mm[Hg] Unive rsity of pressure [place] [facility] Heart rate 2022-07-10 03:00:00 81 /min [facility]i ty [facility] [place] [facility] Respiratory rate 2022-07-10 03:00:00 16 /min Univ ersity [facility] [place] [facility] Oxygen saturation in 2022-07-10 03:00:00 95 /min University of Arterial blood by [place] [facility] [employer] daniel Pulse oximetry Branch Body temperature 2022-07-09 21:24:00 36.56 [place] Univ ersity [facility] [place] [facility] Body weight 2022-07-09 21:24:00 53.071 kg [facility]i [facility] [place] [facility] BMI 2022-07-09 21:24:00 21.40 kg/m2 [facility] [place] [facility] Systolic blood 2022-06-27 13:08:00 121 mm[Hg] Univer sity of pressure [place] [facility] Diastolic blood 2022-06-27 13:08:00 78 mm[Hg] Unive rsity of pressure [place] [facility] Heart rate 2022-06-27 13:08:00 74 /min [facility] [place] [facility] Body temperature 2022-06-27 13:08:00 36.44 [place] Univ ersity [facility] [place] [facility] Respiratory rate 2022-06-27 13:08:00 18 /min Univ ersity [facility] [place] [facility] Oxygen saturation in 2022-06-27 13:08:00 94 /min University of Arterial blood by [place] [facility] [employer] daniel Pulse oximetry Branch Body weight 2022-06-24 05:00:00 53.071 kg [facility]i ty [facility] [place] [facility] BMI 2022-06-24 05:00:00 21.40 kg/m2 [facility] [place] [facility] Body height 2022-06-18 10:38:00 157.5 cm [facility]i [facility] [place] [facility] Systolic blood 2022-06-23 09:53:00 128 mm[Hg] Univer sity of pressure [place] [facility] Diastolic blood 2022-06-23 09:53:00 80 mm[Hg] Unive rsity of pressure [place] [facility] Heart rate 2022-06-23 09:53:00 64 /min Universi ty of [place] [facility] Body temperature 2022-06-23 09:53:00 36.44 [place] Univ ersity [facility] [place] [facility] Respiratory rate 2022-06-23 09:53:00 18 /min Univ ersity [facility] [place] [facility] Oxygen saturation in 2022-06-23 09:53:00 98 /min University of Arterial blood by [facility] Pulse oximetry Branch Body weight 2022-06-23 05:00:00 51.982 kg [facility]i [facility] [place] [facility] BMI 2022-06-23 05:00:00 21.40 kg/m2 [facility] [place] [facility] Body height 2022-06-18 10:38:00 157.5 cm [facility] [place] [facility] WEIGHT 2022-05-14 23:49:00 57.788 kg WEIGHT 2022-05-14 23:49:00 57.788 kg Systolic blood 2022-08-07 13:08:00 128 mm[Hg] Univer sity of pressure [place] [facility] Diastolic blood 2022-08-07 13:08:00 78 mm[Hg] Unive rsity of pressure [place] [facility] Heart rate 2022-08-07 13:08:00 78 /min [facility]i [facility] [place] [facility] Body temperature 2022-08-07 13:08:00 37.06 [place] Univ ersity [facility] [place] [facility] Respiratory rate 2022-08-07 13:08:00 16 /min Univ ersity [facility] [place] [facility] Oxygen saturation in 2022-08-07 13:08:00 95 /min University of Arterial blood by [facility] Pulse oximetry Branch Systolic blood 2022-07-30 17:53:00 111 mm[Hg] Univer sity of pressure [place] [facility] Diastolic blood 2022-07-30 17:53:00 71 mm[Hg] Unive rsity of pressure [place] [facility] Heart rate 2022-07-30 17:53:00 94 /min [facility]i ty [facility] [place] [facility] Oxygen saturation in 2022-07-30 17:53:00 100 /min University of Arterial blood by [facility] Pulse oximetry Branch Body temperature 2022-07-30 17:52:00 36.28 [place] Univ ersity [facility] [place] [facility] Respiratory rate 2022-07-30 17:52:00 18 /min Univ ersity of [place] [facility] Systolic blood 2022-07-29 13:46:00 128 mm[Hg] Univer sity of pressure [place] [facility] Diastolic blood 2022-07-29 13:46:00 78 mm[Hg] Unive rsity of pressure [place] [facility] Heart rate 2022-07-29 13:46:00 65 /min [facility]i ty [facility] [place] [facility] Body temperature 2022-07-29 13:46:00 36.22 [place] Univ ersity [facility] [place] [facility] Respiratory rate 2022-07-29 13:46:00 18 /min Univ ersity [facility] [place] [facility] Oxygen saturation in 2022-07-29 13:46:00 96 /min University of Arterial blood by [place] [facility] Pulse oximetry Branch Body height 2022-07-28 15:52:00 157.5 cm [facility]i [facility] [place] [facility] Body weight 2022-07-28 15:52:00 48.535 kg [facility] [place] [facility] BMI 2022-07-28 15:52:00 19.57 kg/m2 [facility] [place] [facility] Systolic blood 2022-06-27 13:08:00 121 mm[Hg] Univer sity of pressure [place] [facility] Diastolic blood 2022-06-27 13:08:00 78 mm[Hg] Unive rsity of pressure [place] [facility] Heart rate 2022-06-27 13:08:00 74 /min Universi ty [facility] [place] [facility] Body temperature 2022-06-27 13:08:00 36.44 [place] Univ ersity [facility] [place] [facility] Respiratory rate 2022-06-27 13:08:00 18 /min Univ ersity [facility] [place] [facility] Oxygen saturation in 2022-06-27 13:08:00 94 /min University of Arterial blood by [place] [facility] daniel Pulse oximetry Branch Systolic blood 2022-06-26 16:21:00 114 mm[Hg] Univer sity of pressure [place] [facility] Diastolic blood 2022-06-26 16:21:00 70 mm[Hg] Unive rsity of pressure [place] [facility] Heart rate 2022-06-26 16:21:00 88 /min [facility]i [facility] [place] [facility] Body temperature 2022-06-26 16:21:00 36.22 [place] Univ ersity [facility] [place] [facility] Respiratory rate 2022-06-26 16:21:00 18 /min [facility] Oxygen saturation in 2022-06-26 16:21:00 93 /min University Arterial blood by [facility] Pulse oximetry Branch Body weight 2022-06-24 05:00:00 53.071 kg [facility] BMI 2022-06-24 05:00:00 21.40 kg/m2 [facility] Body height 2022-06-18 10:38:00 157.5 cm [facility] Systolic blood 2022-05-19 11:33:00 133 mm[Hg] [facility] Diastolic blood 2022-05-19 11:33:00 74 mm[Hg] [facility] Heart rate 2022-05-19 11:33:00 80 /min [facility] Body temperature 2022-05-19 11:33:00 36.17 [facility] Respiratory rate 2022-05-19 11:33:00 18 /min [facility] Oxygen saturation in 2022-05-19 11:33:00 97 /min [facility] Arterial blood by Medical Ce nter Pulse oximetry Body weight 2022-05-14 23:49:00 57.788 kg [facility] BMI 2022-05-14 23:49:00 23.30 kg/m2 [facility] Systolic blood 2022-05-11 15:14:00 132 mm[Hg] [facility] Diastolic blood 2022-05-11 15:14:00 84 mm[Hg] [facility] Heart rate 2022-05-11 15:14:00 89 /min [facility] Body temperature 2022-05-11 15:14:00 37.11 [facility] Respiratory rate 2022-05-11 15:14:00 18 /min [facility] Oxygen saturation in 2022-05-11 15:14:00 94 /min [facility] Arterial blood by Medical Ce nter Pulse oximetry Procedures Procedure Date / Time Performing Source Performed Clinician KAVYA 2022-11-30 Daryl Lambert [facility] 09:43:00 [facility] MAGNESIUM 2022-11-30 Fausto Milan University of 09:43:00 [facility] HEPATIC FUNCTION PANEL ([id number]) 2022-11-30 Fausto Milan U niversity of (ALB,T.PRO,BILI 09:43:00 [facility],BU/BC,ALT,AST,ALK PHOS) Branch BASIC METABOLIC PANEL (NA, K, 2022-11-30 Fausto Milan Un iversity of CL, CO2, GLUCOSE, BUN, 09:43:00 [facility] ical CREATININE, [place]) Branch CBC WITH DIFF 2022-11-30 Fausto Milan University of 09:43:[address] [facility] [address] ABDOMEN PELVIS W CONTRAST 2022-11-30 Fausto Milan Uni versity of 01:05:00 [facility] COMP. METABOLIC PANEL ([id number]) 2022-11-29 Deniz Cervantes U niversity of 22:03:00 [facility] CBC WITH DIFF 2022-11-29 Deniz Cervantes [place] of 22:03:00 [facility] CONSENT/REFUSAL FOR DIAGNOSIS 2022-11-29 Doctor Unassigned, [place] of AND TREATMENT 18:02:35 [place] [facility] AUTHORIZATION FOR RELEASE OF PHI 2022-10-22 Doctor Unassign ed, [facility] 06:01:00 [place] [facility] EMERGENCY DEPARTMENT DOCUMENTS 2022-09-25 Doctor Unayara , [facility] 06:01:00 [place] [facility] EXTERNAL PROVIDER RECORDS 2022-08-17 Doctor Unassigned, Uni versity of 06:01:00 [place] [facility] MAGNESIUM 2022-08-07 [place], [facility] of 11:15:[address] [facility] BASIC METABOLIC PANEL (NA, K, 2022-08-07 [place], [place] Un iversity of CL, CO2, GLUCOSE, BUN, 11:15:00 [facility] ical CREATININE, [place]) Branch CBC WITH DIFF 2022-08-07 [place], [facility] 11:15:[address] [facility] BASIC METABOLIC PANEL (NA, K, 2022-08-07 [place], [place] Un iversity of CL, CO2, GLUCOSE, BUN, 11:15:00 [facility] ical CREATININE, [place]) Branch MAGNESIUM 2022-08-07 [place], [facility] 11:15[facility]00 [facility]FF 2022-08-07 [place], [facility] of 11:15:00 [facility] MAGNESIUM 2022-08-06 [place], [facility] of 10:09:00 [facility] BASIC METABOLIC PANEL (NA, K, 2022-08-06 [place], [place] Un iversity of CL, CO2, GLUCOSE, BUN, 10:09:00 [place] [facility] ical CREATININE, [place]) Branch CBC WITH DIFF 2022-08-06 [place], [facility] of 10:09:00 [facility] BASIC METABOLIC PANEL (NA, K, 2022-08-06 [place], [place] Un iversity of CL, CO2, GLUCOSE, BUN, 10:09:00 [place] [facility] ical CREATININE, [place]) Branch MAGNESIUM 2022-08-06 [place], [facility] of 10:09:[address] [facility] CBC WITH DIFF 2022-08-06 [place], [facility] of 10:09:[address] [facility] BASIC METABOLIC PANEL (NA, K, 2022-08-05 Nicholas Charles Un iversity of CL, CO2, GLUCOSE, BUN, 23:19:00 [place] [facility] ical CREATININE, [place]) Branch PROTHROMBIN TIME / INR 2022-08-05 Nicholas Charles [facility] y of 23:19:00 [facility] BASIC METABOLIC PANEL (NA, K, 2022-08-05 Nicholas Charles Un iversity of CL, CO2, GLUCOSE, BUN, 23:19:00 [place] Med ical CREATININE, [place]) Branch PROTHROMBIN TIME / INR 2022-08-05 Nicholas Charles [facility] y of 23:19:00 [place] [facility] [place] MAGNESIUM 2022-08-05 [place], [facility] of 10:38:00 [facility] BASIC METABOLIC PANEL (NA, K, 2022-08-05 [place], Sirisha Un iversity of CL, CO2, GLUCOSE, BUN, 10:38:00 [facility]) Branch CBC WITH DIFF 2022-08-05 [place], [facility] of 10:38:00 [facility] BASIC METABOLIC PANEL (NA, K, 2022-08-05 [place], Sirisha Un iversity of CL, CO2, GLUCOSE, BUN, 10:38:00 Al[place]ra [place] [facility] ical CREATININE, [place]) Branch MAGNESIUM 2022-08-05 [place], [facility] of 10:38:00 Al[place] [place] [facility] CBC WITH DIFF 2022-08-05 [place], [facility] of 10:38:00 [place] [facility] CBC WITHOUT DIFF 2022-08-04 [place], [facility] of 11:25:00 [place] [facility] CBC WITHOUT DIFF 2022-08-04 [place], [facility] of 11:25:00 [place] [facility] MAGNESIUM 2022-08-03 [place], [facility] of 10:07:00 [facility] BASIC METABOLIC PANEL (NA, K, 2022-08-03 [place], [place] Un iversity of CL, CO2, GLUCOSE, BUN, 10:07:00 Al[place]ra [place] [facility] ical CREATININE, [place]) Branch CBC WITHOUT DIFF 2022-08-03 [place], [facility] 10:07:00 [facility] [place] BASIC METABOLIC PANEL (NA, K, 2022-08-03 [place], Sirisha Un iversity of CL, CO2, GLUCOSE, BUN, 10:07:00 Al[place]ra [place] [facility] ical CREATININE, [place]) Branch CBC WITHOUT DIFF 2022-08-03 [place], [facility] of 10:07:00 [place] [facility] MAGNESIUM 2022-08-03 [place], [facility] 10:07:00 [place] [facility] [place] MAGNESIUM 2022-08-02 [place], [facility] 10:39:00 [facility] BASIC METABOLIC PANEL (NA, K, 2022-08-02 [place], [place] Un iversity of CL, CO2, GLUCOSE, BUN, 10:39:00 Al[place] [facility] ical CREATININE, CA) Branch CBC WITHOUT DIFF 2022-08-02 [place], [facility] of 10:39:00 [place] [place] [facility] BASIC METABOLIC PANEL (NA, K, 2022-08-02 [place], [place] Un iversity of CL, CO2, GLUCOSE, BUN, 10:39:00 Al[place]ra [place] [facility] ical CREATININE, [place]) Branch CBC WITHOUT DIFF 2022-08-02 [place], [facility] [facility] of 10:39:00 [facility] MAGNESIUM 2022-08-02 [place], [facility] of 10:39:00 [facility] MAGNESIUM 2022-08-01 [place], [facility] 11:25:[address] [facility] BASIC METABOLIC PANEL (NA, K, 2022-08-01 [place], Sirisha Un iversity of CL, CO2, GLUCOSE, BUN, 11:25:[address] [facility] ical CREATININE, CA) Branch CBC WITH DIFF 2022-08-01 [place], [facility] of 11:25:[address] [facility] BASIC METABOLIC PANEL (NA, K, 2022-08-01 [place], Sirisha Un iversity of CL, CO2, GLUCOSE, BUN, 11:25:[address] [facility] ical CREATININE, CA) Branch MAGNESIUM 2022-08-01 [place], [facility] of 11:25:[address] [facility] CBC WITH DIFF 2022-08-01 [place], [facility] of 11:25:[address] [facility] CBC WITH DIFF 2022-07-31 [place], [facility] of 17:46:[address] [facility] CBC WITH DIFF 2022-07-31 [place], [facility] of 17:46:[address] [facility] HEPATITIS C VIRUS (HCV) BY 2022-07-31 [place], [facility] rsity of QUANTITATIVE NAAT 17:42:[address] [facility] HEPATITIS B VIRUS (HBV) BY 2022-07-31 [place], Sirisha Unive rsity of QUANTITATIVE NAAT 17:42:[address] [facility] HEPATITIS B VIRUS (HBV) BY 2022-07-31 [place], [facility] rsity of QUANTITATIVE NAAT 17:42:[address] [facility] HEPATITIS C VIRUS (HCV) BY 2022-07-31 [place], [facility] rsity of QUANTITATIVE NAAT 17:42:[address] [facility] MAGNESIUM 2022-07-31 [place], [facility] of 10:31:[address] [facility] BASIC METABOLIC PANEL (NA, K, 2022-07-31 [place], Sirisha Un iversity of CL, CO2, GLUCOSE, BUN, 10:31:[address] [facility] ical CREATININE, CA) Branch CBC WITHOUT DIFF 2022-07-31 [place], [facility] of 10:31:[address] [facility] HIV 1/2 AG-AB WITH REFLEX 2022-07-31 [place], [facility] sity of 10:31:[address] [facility] BASIC METABOLIC PANEL (NA, K, 2022-07-31 [place], Sirisha Un iversity of CL, CO2, GLUCOSE, BUN, 10:31:[address] [facility] ical CREATININE, CA) Branch CBC WITHOUT DIFF 2022-07-31 [place], [facility] 10:31[facility]00 [facility]-31 [place], [facility] 10:31:00 [facility] HIV 1/2 AG-AB WITH REFLEX 2022-07-31 [place], [facility] sity of 10:31:00 [facility] X[facility] CHEST 1 VW 2022-07-30 [place], [facility] of 12:39:00 [facility] XR CHEST 1 VW 2022-07-30 [place], [facility] of 12:39:00 [facility] URINALYSIS 2022-07-30 [place], [facility] of 12:30:00 [facility] URINALYSIS 2022-07-30 [place], [facility] of 12:30:00 [facility] URINE CULTURE 2022-07-30 [place], [facility] of 12:30:00 [facility] URINE CULTURE 2022-07-30 [place], [facility] of 12:30:00 [facility] CBC WITH DIFF 2022-07-30 [place], [facility] of 12:27:00 [facility] BASIC METABOLIC PANEL (NA, K, 2022-07-30 [place], Sirisha Un iversity of CL, CO2, GLUCOSE, BUN, 12:27:[address] [facility] ical CREATININE, CA) Branch BASIC METABOLIC PANEL (NA, K, 2022-07-30 [place], Sirisha Un iversity of CL, CO2, GLUCOSE, BUN, 12:27:00 [facility]IN[facility], [place]) Branch CBC WITH DIFF 2022-07-30 [place] [facility] of 12:27:00 [facility] LACTIC ACID WHOLE BLOOD 2022-07-30 [place] [facility] ty of 12:22:00 [facility] LACTIC ACID WHOLE BLOOD 2022-07-30 [place] [facility] of 12:22:00 [facility] BLOOD CULTURE SCREEN 2022-07-30 [place], [facility] of 12:20:00 [facility] BLOOD CULTURE SCREEN 2022-07-30 [place], [facility] of 12:20:[address] [facility] BLOOD CULTURE WORKUP 2022-07-30 [place], [facility] of 12:20:[address] [facility] BLOOD CULTURE WORKUP 2022-07-30 [place], [facility] of 12:20:[address] [facility] GRAM NEGATIVE BLOOD PATHOGENS 2022-07-30 [place], [place] Un iversity of DNA PROBE-ANAEROBIC 12:20:00 [facility] BLOOD CULTURE WORKUP 2022-07-30 [place], [facility] 12:20:[address] [facility] BLOOD CULTURE WORKUP 2022-07-30 [place], [facility] 12:20:[address] [facility] GRAM NEGATIVE BLOOD PATHOGENS 2022-07-30 [place], [place] Un iversity of DNA PROBE-ANAEROBIC 12:20:00 [facility] HB ECG ROUTINE & RHYTHM STRIP 2022-07-30 Branden Tim Un iversity of 12:10:22 [facility] HB ECG ROUTINE & RHYTHM STRIP 2022-07-30 Branden Tim Un iversity of 12:10:22 [facility] BASIC METABOLIC PANEL (NA, K, 2022-07-29 [place], [place] Un iversity of CL, CO2, GLUCOSE, BUN, 11:07:00 [facility] ical CREATININE, CA) Branch MAGNESIUM 2022-07-29 [place], [facility] 11:07:[address] [facility] CBC WITH DIFF 2022-07-29 Nicholas Charles of 11:07:00 [facility] HEPATIC FUNCTION PANEL ([id number]) 2022-07-29 Nicholas Charles niversity of (ALB,T.PRO,BILI 11:07:00 [facility] T,BU/BC,ALT,AST,ALK PHOS) Branch MAGNESIUM 2022-07-29 [place], [facility] of 11:07:[address] [facility] HEPATIC FUNCTION PANEL ([id number]) 2022-07-29 Nicholas Charles niversity of (ALB,T.PRO,BILI 11:07:00 [place] [facility] T,BU/BC,ALT,AST,ALK PHOS) Branch BASIC METABOLIC PANEL (NA, K, 2022-07-29 [place], Sirisha Un iversity of CL, CO2, GLUCOSE, BUN, 11:07:00 [facility] [place] [facility] CREATININE, CA) Branch CBC WITH DIFF 2022-07-29 Nicholas Charles of 11:07:00 [facility] HB ECG ROUTINE & RHYTHM STRIP 2022-07-29 Branden Tim Un iversity of 01:45:03 [facility] HB ECG ROUTINE & RHYTHM STRIP 2022-07-29 Branden Tim Un iversity of 01:45:03 [facility] IR PLACEMENT ACCESS THRU BILIARY 2022-07-28 [place], [facility] PERCUTANEOUS NEW ACCESS 22:28:42 [facility] as [facility] IR PLACEMENT ACCESS THRU BILIARY 2022-07-28 [facility] PERCUTANEOUS NEW ACCESS 22:28:42 [facility] IR DRAINAGE BY CATHETER 2022-07-28 [facility] ty of PERITONEAL OR RETROPERITONEAL 18:[facility]:00 [facility] DRAINAGE BY CATHETER 2022-07-28 [facility] ty of PERITONEAL OR RETROPERITONEAL 18:30:00 [facility] BODY FLUID 2022-07-28 [facility] of CULTURE(AEROBIC/ANAEROBIC) 18:14:00 [facility] BODY FLUID 2022-07-28 [facility] of CULTURE(AEROBIC/ANAEROBIC) 18:14:00 [facility] BASIC METABOLIC PANEL (NA, K, 2022-07-28 [place], Sirisha Un iversity of CL, CO2, GLUCOSE, BUN, 11:35:00 [facility] CREATININE, CA) Branch CBC WITHOUT DIFF 2022-07-28 [place], [facility] of 11:35:00 [facility] MAGNESIUM 2022-07-28 [place], [facility] 11:35:[address] [facility] MAGNESIUM 2022-07-28 [place], [facility] of 11:35:[address] [facility] BASIC METABOLIC PANEL (NA, K, 2022-07-28 [place], [place] Un iversity of CL, CO2, GLUCOSE, BUN, 11:35:00 [facility] CREATININE, CA) Branch CBC WITHOUT DIFF 2022-07-28 [place], [facility] 11:35:00 [facility] MR ABDOMEN W WO CONTRAST MRCP 2022-07-28 Melvin Anguiano Un iversity of 04:29:46 [facility] MR ABDOMEN W WO CONTRAST MRCP 2022-07-28 Melvin Anguiano Un iversity of 04:29:46 [facility] IR EXCHANGE OF BILIARY DRAINAGE 2022-07-28 [place], [facility] of CATHETER 00:36:00 Alondra [facility] IR EXCHANGE OF BILIARY DRAINAGE 2022-07-28 [place], [facility] of CATHETER 00:36:00 Alondra [facility] XR KUB 2022-07-27 [place], [facility] of 21:30:00 [facility] XR KUB 2022-07-27 [place], [facility] of 21:30:00 [facility] CBC WITHOUT DIFF 2022-07-27 [place] [facility] of 18:10:00 [facility] BASIC METABOLIC PANEL (NA, K, 2022-07-27 [place], Sirisha Un iversity of CL, CO2, GLUCOSE, BUN, 18:10:00 [facility] CREATININE, [place]) Branch PROTHROMBIN TIME / INR 2022-07-27 [place], [facility] y of 18:10:00 [facility] BASIC METABOLIC PANEL (NA, K, 2022-07-27 [place], Sirisha Un iversity of CL, CO2, GLUCOSE, BUN, 18:10:00 [facility] CREATININE, CA) Branch CBC WITHOUT DIFF 2022-07-27 Branden Tim [place] of 18:10:00 [facility] PROTHROMBIN TIME / INR 2022-07-27 [place], [facility] y of 18:10:00 [facility] ECG ROUTINE & RHYTHM STRIP 2022-07-27 [place], Sirisha Un iversity of 15:50:09 [facility] ECG ROUTINE & RHYTHM STRIP 2022-07-27 [place], Sirisha Un iversity of 15:50:[address] [facility] [address] ABDOMEN PELVIS W CONTRAST 2022-07-27 Nicholas Charles Uni versity of 14:49:11 [facility] CT ABDOMEN PELVIS W CONTRAST 2022-07-27 Nicholas Charles Uni versity of 14:49:11 [facility] CBC WITH DIFF 2022-07-27 Nicholas Charles of 08:05:00 [facility] BASIC METABOLIC PANEL (NA, K, 2022-07-27 Araceli, Nicholas Hu iversity of CL, CO2, GLUCOSE, BUN, 08:05:00 [place] [facility] CREATININE, CA) Branch MAGNESIUM 2022-07-27 Araceli, [facility] of 08:05:00 [facility] LIPID PANEL ([id number])(TOTAL 2022-07-27 Araceli, Nicholas [facility] sity of CHOLESTEROL, TRIGLYCERIDES, HDL) 08:05:00 [facility] LIPASE 2022-07-27 [place], [facility] of 08:05:00 Alondra [facility] LIPASE 2022-07-27 [place], [facility] of 08:05:00 Alondra [facility] MAGNESIUM 2022-07-27 Araceli, [facility] of 08:05:00 [facility] BASIC METABOLIC PANEL (NA, K, 2022-07-27 Araceli, Nicholas Hu iversity of CL, CO2, GLUCOSE, BUN, 08:05:00 [place] [facility] CREATININE, CA) [place] LIPID PANEL ([id number])(TOTAL 2022-07-27 Araceli, [facility] of CHOLESTEROL, TRIGLYCERIDES, HDL) 08:05:00 [facility] CBC WITH DIFF 2022-07-27 Araceli, [facility] of 08:05:00 [facility] US ABDOMEN LIMITED 2022-07-27 Araceli, [facility] of 03:31:00 [facility] US ABDOMEN LIMITED 2022-07-27 Araceli, [facility] of 03:31:00 [facility] ACTIVATED PARTIAL THRMPLAS CHARLES 2022-07-26 Araceli, Nicholas Galvez nivmoeity of 22:23:00 [facility] C-REACTIVE PROTEIN 2022-07-26 Araceli, [facility] of 22:23:00 [facility] PHOSPHORUS 2022-07-26 Araceli, [facility] of 22:23:00 [facility] C-REACTIVE PROTEIN 2022-07-26 Araceli, [facility] of 22:23:00 [facility] HEPATIC FUNCTION PANEL ([id number]) 2022-07-26 Nicholas Charles niversity of (ALB,T.PRO,BILI 22:23:00 [facility],BU/BC,ALT,AST,ALK PHOS) [place] BASIC METABOLIC PANEL (NA, K, 2022-07-26 Araceli, Nicholas Un iversity of CL, CO2, GLUCOSE, BUN, 22:23:00 [place] [facility] CREATININE, CA) Branch CBC WITH DIFF 2022-07-26 Araceli Nicholaslatesha Fall of 22:23:00 [facility] PROTHROMBIN TIME / INR 2022-07-26 Araceli, [facility] y of 22:23:00 [facility] ACTIVATED PARTIAL THRMPLAS CHARLES 2022-07-26 Nicholas Charles U niversity of 22:23:00 [facility] CBC WITH DIFF 2022-07-26 Araceli [facility] of 22:23:00 [facility] BASIC METABOLIC PANEL (NA, K, 2022-07-26 Nicholas Charles Un iversity of CL, CO2, GLUCOSE, BUN, 22:23:00 [place] [facility] CREATININE, CA) Branch HEPATIC FUNCTION PANEL ([id number]) 2022-07-26 Nicholas Charles niversity of (ALB,T.PRO,BILI 22:23:00 [facility],BU/BC,ALT,AST,ALK PHOS) Branch PHOSPHORUS 2022-07-26 Araceli [facility] of 22:23:00 [facility] PROTHROMBIN TIME / INR 2022-07-26 Araceli, [facility] y of 22:23:00 [facility] XR CHEST 1 VW 2022-07-26 Araceli, [facility] of 21:45:00 [facility] XR CHEST 1 VW 2022-07-26 Araceli, [facility] of 21:45:00 [facility] CT ABDOMEN PELVIS W CONTRAST 2022-07-10 Zuniga, Chris Uni versity of 00:27:[address] [facility] CT ABDOMEN PELVIS W CONTRAST 2022-07-10 Jan Zunigao Uni versity of 00:27:49 [facility] CBC WITH DIFF 2022-07-09 Britta [facility] of 22:40:00 [facility] CBC WITH DIFF 2022-07-09 Casie Callejas of 22:40:00 [facility] LIPASE 2022-07-09 Britta [facility] of 22:32:00 [facility] COMP. METABOLIC PANEL ([id number]) 2022-07-09 Casie Callejas iversity of 22:32:00 [facility] LIPASE 2022-07-09 Casie Callejas of 22:32:00 [facility] COMP. METABOLIC PANEL ([id number]) 2022-07-09 Casie Callejas iversity of 22:32:00 [facility] EMERGENCY SERVICES AGREEMENTS 2022-07-09 Doctor Unassigned, University AND AUTHORIZATIONS 05:01:00 [place] [facility] CBC WITH DIFF 2022-06-27 [facility] of 09:50:00 [facility] BASIC METABOLIC PANEL (NA, K, 2022-06-27 Cherie Schmidt Un iversity of CL, CO2, GLUCOSE, BUN, 09:50:00 [place] [facility] CREATININE, CA) Branch MAGNESIUM 2022-06-27 [facility] of 09:50:00 [facility] MAGNESIUM 2022-06-27 [facility] of 09:50:00 [facility] BASIC METABOLIC PANEL (NA, K, 2022-06-27 Cherie Schmidt Un iversity of CL, CO2, GLUCOSE, BUN, 09:50:00 [place] [facility] CREATININE, CA) Branch CBC WITH DIFF 2022-06-27 [facility] of 09:50:00 [facility] CT CHEST PULMONARY ANGIOGRAM 2022-06-[address] [facility] vers[facility] of 15:22:27 [facility] CBC WITH DIFF 2022-06-26 [facility] of 11:30:00 [facility] BASIC METABOLIC PANEL (NA, K, 2022-06-26 Cherie Schmidt Un iversity of CL, CO2, GLUCOSE, BUN, 11:30:00 [place] [facility] CREATININE, CA) Branch MAGNESIUM 2022-06-26 [facility] of 11:30:00 [facility] D-DIMER 2022-06-26 Brayan, [facility] of 11:30:00 [facility] TROPONIN I 2022-06-26 Cruz Galo [place] of 11:30:00 [facility] N-TERMINAL PRO-BNP 2022-06-26 Cruz Galo [place] of 11:30:00 [facility] MAGNESIUM 2022-06-26 [facility] of 11:30:00 [facility] TROPONIN I 2022-06-26 Cruz Galo [place] of 11:30:00 [facility] BASIC METABOLIC PANEL (NA, K, 2022-06-26 Cherie Schmidt iversity of CL, CO2, GLUCOSE, BUN, 11:30:00 [facility] ical CREATININE, CA) Branch CBC WITH DIFF 2022-06-[address] [facility] [place] of 11:30:00 [facility] D-DIMER 2022-06-[address] [facility] [place] of 11:30:00 [facility] N-TERMINAL PRO-BNP 2022-06-26 Iraj [facility] of 11:30:00 [facility] HB ECG ROUTINE & RHYTHM STRIP 2022-06-26 Marin Long Un iversity of 11:04:45 [facility] HB ECG ROUTINE & RHYTHM STRIP 2022-06-26 Aldo Longus Un iversity of 11:04:45 [facility] XR CHEST 1 VW 2022-06-26 Eversurya [facility] of 10:55:00 [facility] XR KUB 2022-06-26 Mitchelkaiser [facility], [facility] of 10:55:00 [facility] XR CHEST 1 VW 2022-06-26 Eversurya [facility] of 10:55:00 [facility] XR KUB 2022-06-26 [facility] of 10:55:00 [facility] HEPATIC FUNCTION PANEL ([id number]) 2022-06-25 Jose Ramon Johnson U niversity of (ALB,T.PRO,BILI 23:02:00 [facility] T,BU/BC,ALT,AST,ALK PHOS) [place] HEPATIC FUNCTION PANEL ([id number]) 2022-06-25 Jose Ramon Johnson U niversity of (ALB,T.PRO,BILI 23:02:00 [place] [facility] T,BU/BC,ALT,AST,ALK PHOS) Branch POCT GLUCOSE (AUTOMATED) 2022-06-25 Heath Dia [facility] ersity of 20:13:00 [facility] POCT GLUCOSE (AUTOMATED) 2022-06-25 Heath Dia [facility] ersity of 20:13:00 [facility] IR PLACEMENT ACCESS THRU BILIARY 2022-06-25 Cherie Schmidt [place] of [place]REE PERCUTANEOUS NEW ACCESS 18:30:31 [facility] as Medical Branch BASIC METABOLIC PANEL (NA, K, 2022-06-24 Cherie Schmidt Un iversity of CL, CO2, GLUCOSE, BUN, 14:28:00 [place] [facility] CREATININE, CA) Branch MAGNESIUM 2022-06-24 Cherie Schmidt [place] of 14:28:00 [facility] HEPATIC FUNCTION PANEL ([id number]) 2022-06-24 Jose Ramon Johnson U niversity of (ALB,T.PRO,BILI 14:28:00 [place] [facility] T,BU/BC,ALT,AST,ALK PHOS) Branch MAGNESIUM 2022-06-24 Cherie Schmidt [place] of 14:28:00 [facility] HEPATIC FUNCTION PANEL ([id number]) 2022-06-24 Jose Ramon Johnson U niversity of (ALB,T.PRO,BILI 14:28:00 [place] [facility] T,BU/BC,ALT,AST,ALK PHOS) Branch BASIC METABOLIC PANEL (NA, K, 2022-06-24 Cherie Schmidt Un iversity of CL, CO2, GLUCOSE, BUN, 14:28:00 [place] [facility] CREATININE, CA) Branch MAGNESIUM 2022-06-24 Cherie Schmidt [place] of 14:28:00 [facility] BASIC METABOLIC PANEL (NA, K, 2022-06-24 Cherie Schmidt Un iversity of CL, CO2, GLUCOSE, BUN, 14:28:00 [place] [facility] CREATININE, CA) Branch CBC WITH DIFF 2022-06-24 Cherie Schmidt [place] of 10:11:00 [facility] CBC WITH DIFF 2022-06-24 Cherie Schmidt [place] of 10:11:00 [facility] CBC WITH DIFF 2022-06-24 [facility] of 10:11:00 [facility] BASIC METABOLIC PANEL (NA, K, 2022-06-23 Cherie Schmidt Un iversity of CL, CO2, GLUCOSE, BUN, 21:07:00 [place] [facility] CREATININE, CA) Branch PROTHROMBIN TIME / INR 2022-06-23 Cherie Schmidt [facility] y of 21:07:00 [facility] HEPATIC FUNCTION PANEL ([id number]) 2022-06-23 Jose Ramon Johnson U niversity of (ALB,T.PRO,BILI 21:07:00 [place] [facility] T,BU/BC,ALT,AST,ALK PHOS) Branch HEPATIC FUNCTION PANEL ([id number]) 2022-06-23 Jose Ramon Johnson U niversity of (ALB,T.PRO,BILI 21:07:00 [place] [facility] T,BU/BC,ALT,AST,ALK PHOS) Branch BASIC METABOLIC PANEL (NA, K, 2022-06-23 Cherie Schmidt Un iversity of CL, CO2, GLUCOSE, BUN, 21:07:00 [place] [facility] CREATININE, CA) Branch PROTHROMBIN TIME / INR 2022-06-23 Cherie Schmidt Univers y of 21:07:00 [facility] HEPATIC FUNCTION PANEL ([id number]) 2022-06-23 Jose Ramon Johnson U niversity of (ALB,T.PRO,BILI 21:07:00 [place] [facility] T,BU/BC,ALT,AST,ALK PHOS) Branch BASIC METABOLIC PANEL (NA, K, 2022-06-23 Cherie Schmidt Un iversity of CL, CO2, GLUCOSE, BUN, 21:07:00 [place] [facility] CREATININE, CA) Branch PROTHROMBIN TIME / INR 2022-06-23 Cherie Schmidt [facility] y of 21:07:00 [facility] INTUBATION 2022-06-23 Tesfaye [facility] of 15:00:00 [facility] ENDOSCOPIC RETROGRADE 2022-06-23 [facility] ty of CHOLANGIOPANCRETOGRAPHY 14:40:00 [facility] dical Branch ENDOSCOPIC RETROGRADE 2022-06-23 [facility] ty of CHOLANGIOPANCRETOGRAPHY 14:40:00 [facility] dical Branch ENDOSCOPIC RETROGRADE 2022-06-23 [facility] ty of CHOLANGIOPANCRETOGRAPHY 14:40:00 [facility] dicor Branch ERCP (ENDO) 2022-06-23 [facility] of 14:30:10 [facility] ERCP (ENDO) 2022-06-23 [facility] of 14:30:10 [facility] PROTHROMBIN TIME / INR 2022-06-23 Cruz Galoit y of 10:05:00 [facility] COMP. METABOLIC PANEL ([id number]) 2022-06-23 Cruz Galo iversity of 10:05:00 [facility] CBC WITH DIFF 2022-06-23 Cruz Galo of 10:05:00 [facility] COMP. METABOLIC PANEL ([id number]) 2022-06-23 Cruz Galo Un iversity of 10:05:00 [facility] CBC WITH DIFF 2022-06-23 Cruz Galo [place] of 10:05:00 [facility] PROTHROMBIN TIME / INR 2022-06-23 GaloCruz [facility] y of 10:05:00 [facility] COMP. METABOLIC PANEL ([id number]) 2022-06-23 Cruz Galo Un iversity of 10:05:00 [facility] CBC WITH DIFF 2022-06-23 Cruz Galo [place] of 10:05:00 [facility] PROTHROMBIN TIME / INR 2022-06-23 IrajCruz [facility] y of 10:05:00 [facility] CBC WITH DIFF 2022-06-22 [facility] of 06:07:00 [facility] BASIC METABOLIC PANEL (NA, K, 2022-06-22 Brayan, [facility] Un iversity of CL, CO2, GLUCOSE, BUN, 06:07:00 [place] [facility] CREATININE, CA) Branch MAGNESIUM 2022-06-22 [facility] of 06:07:00 [facility] HEPATIC FUNCTION PANEL ([id number]) 2022-06-22 April Cardoza U niversity of (ALB,T.PRO,BILI 06:07:00 [place] [facility] T,BU/BC,ALT,AST,ALK PHOS) Branch MAGNESIUM 2022-06-22 [facility] of 06:07:00 [facility] HEPATIC FUNCTION PANEL ([id number]) 2022-06-22 April Cardoaz U niversity of (ALB,T.PRO,BILI 06:07:00 [place] [facility] T,BU/BC,ALT,AST,ALK PHOS) Branch BASIC METABOLIC PANEL (NA, K, 2022-06-22 Brayan, [facility] Un iversity of CL, CO2, GLUCOSE, BUN, 06:07:00 [place] [facility] CREATININE, [place]) Branch CBC WITH DIFF 2022-06-22 [facility] of 06:07:00 [facility] MAGNESIUM 2022-06-22 [facility] 06:07[facility]00 [facility] HEPATIC FUNCTION PANEL ([id number]) 2022-06-22 April Cardoza [facility] of (ALB,T.PRO,BILI 06:07:00 [place] [facility] T,BU/BC,ALT,AST,ALK PHOS) Branch BASIC METABOLIC PANEL (NA, K, 2022-06-22 Cherie Schmidt Un iversity of CL, CO2, GLUCOSE, BUN, 06:07:00 [place] [facility] CREATININE, CA) Branch CBC WITH DIFF 2022-06-22 Cherie Schmidt [place] of 06:07:00 [facility] HEPATOBILIARY 2022-06-21 [place], [facility] of 22:00:00 [facility] HEPATOBILIARY 2022-06-21 [place], [facility] of 22:00:00 [facility] HEPATOBILIARY 2022-06-21 [place], [facility] of 22:00:00 [facility] PROTHROMBIN TIME / INR 2022-06-21 [place] 10:51:00 [facility] CBC WITH DIFF 2022-06-21 [place], [facility] of 10:51:00 [facility] BASIC METABOLIC PANEL (NA, K, 2022-06-21 Branden Tim Un iversity of CL, CO2, GLUCOSE, BUN, 10:51:00 [place] [facility] CREATININE, [place]) Branch HEPATIC FUNCTION PANEL ([id number]) 2022-06-21 Branden Tim [facility] of (ALB,T.PRO,BILI 10:51:00 [place] [facility] T,BU/BC,ALT,AST,ALK PHOS) Branch HEPATIC FUNCTION PANEL ([id number]) 2022-06-21 Branden Tim [facility] of (ALB,T.PRO,BILI 10:51:00 [place] [facility] T,BU/BC,ALT,AST,ALK PHOS) Branch BASIC METABOLIC PANEL (NA, K, 2022-06-21 Branden Tim Un iversity of CL, CO2, GLUCOSE, BUN, 10:51:00 [place] [facility] CREATININE, CA) Branch CBC WITH DIFF 2022-06-21 Branden Tim [place] of 10:51:00 [facility] PROTHROMBIN TIME / INR 2022-06-21 [place], Branden [facility] y of 10:51:00 [facility] HEPATIC FUNCTION PANEL ([id number]) 2022-06-21 Branden Tim [facility] of (ALB,T.PRO,BILI 10:51:00 [place] [facility] T,BU/BC,ALT,AST,ALK PHOS) Branch BASIC METABOLIC PANEL (NA, K, 2022-06-21 Branden Tim Un iversity of CL, CO2, GLUCOSE, BUN, 10:51:00 [place] [facility] CREATININE, CA) Branch CBC WITH DIFF 2022-06-21 Branden Tim of 10:51:00 [facility] PROTHROMBIN TIME / INR 2022-06-21 Branden Tim [facility] y of 10:51:00 [facility] CBC WITH DIFF 2022-06-20 Michelle Grande [place] of 06:45:00 [facility] COMP. METABOLIC PANEL ([id number]) 2022-06-20 Michelle Grande Un iversity of 06:45:00 [facility] PROTHROMBIN TIME / INR 2022-06-20 Michelle Grande [facility] y of 06:45:00 [facility] COMP. METABOLIC PANEL ([id number]) 2022-06-20 Michelle Grande Un iversity of 06:45:00 [facility] CBC WITH DIFF 2022-06-20 Michelle Grande [place] of 06:45:00 [facility] PROTHROMBIN TIME / INR 2022-06-20 Michelle Grande [facility] y of 06:45:00 [facility] COMP. METABOLIC PANEL ([id number]) 2022-06-20 Michelle Grande Un iversity of 06:45:00 [facility] CBC WITH DIFF 2022-06-20 Michelle Grande of 06:45:00 [facility] PROTHROMBIN TIME / INR 2022-06-20 Michelle Grande [facility] y of 06:45:00 [facility] HEPATITIS C VIRUS (HCV) BY 2022-06-19 Michelle Grande Unive rsity of QUANTITATIVE NAAT 10:56:00 [facility] BASIC METABOLIC PANEL (NA, K, 2022-06-19 Michelle Grande Un iversity of CL, CO2, GLUCOSE, BUN, 10:56:00 [place] [facility] CREATININE, CA) Branch MAGNESIUM 2022-06-19 Michelle Grande of 10:56:00 [facility] MAGNESIUM 2022-06-19 Michelle Grande of 10:56:00 [facility] BASIC METABOLIC PANEL (NA, K, 2022-06-19 Michelle Grande Un iversity of CL, CO2, GLUCOSE, BUN, 10:56:00 [place] [facility] CREATININE, CA) Branch HEPATITIS C VIRUS (HCV) BY 2022-06-19 Michelle Grande rsity of QUANTITATIVE NAAT 10:56:00 [facility] MAGNESIUM 2022-06-19 Michelle Grande [facility] of 10:56:00 [facility] BASIC METABOLIC PANEL (NA, K, 2022-06-19 Michelle Grande Un iversity of CL, CO2, GLUCOSE, BUN, 10:56:00 [place] [facility] CREATININE, CA) Branch HEPATITIS C VIRUS (HCV) BY 2022-06-19 Michelle Grande rsity of QUANTITATIVE NAAT 10:56:00 [facility] CT ANGIOGRAM ABDOMEN/PELVIS 2022-06-19 Michelle Grande ersity of 08:05:28 [facility] CT ANGIOGRAM ABDOMEN/PELVIS 2022-06-19 Michelle Grande [facility] ersity of 08:05:28 [facility] CT ANGIOGRAM ABDOMEN/PELVIS 2022-06-19 [facility] 08:05:28 [facility] MR ABDOMEN W WO CONTRAST MRCP 2022-06-18 Cruz Galo Un iversity of 09:58:00 [facility] MR ABDOMEN W WO CONTRAST MRCP 2022-06-18 Cruz Galo Un iversity of 09:58:00 [facility] MR ABDOMEN W WO CONTRAST MRCP 2022-06-18 Cruz Galo Un iversity of 09:58:00 [facility] BLOOD CULTURE SCREEN 2022-06-18 Cruz Galo of 06:57:00 [facility] BLOOD CULTURE SCREEN 2022-06-18 Cruz Galo of 06:57:00 [facility] BLOOD CULTURE SCREEN 2022-06-18 Cruz Galo of 06:57:00 [facility] URINALYSIS 2022-06-17 Yoni Mckee [place] of 22:32:00 [facility] URINALYSIS 2022-06-17 Rylee [facility] of 22:32:00 [facility] URINALYSIS 2022-06-17 DelliYoni wyman of 22:32:00 [facility] CT ABDOMEN PELVIS W CONTRAST 2022-06-17 Yoni Mckee Uni versity of 22:20:00 [facility] CT ABDOMEN PELVIS W CONTRAST 2022-06-17 Yoni Mckee Uni versity of 22:20:00 [facility] CT ABDOMEN PELVIS W CONTRAST 2022-06-17 Yoni Mckee Uni versity of 22:20:00 [facility] LACTIC ACID WHOLE BLOOD 2022-06-17 Rylee, Yoni [facility] ty of 21:18:00 [facility] LACTIC ACID WHOLE BLOOD 2022-06-17 R[facility], [facility] ty of 21:18:00 [facility] LACTIC ACID WHOLE BLOOD 2022-06-17 Rylee, [facility] ty of 21:18:00 [facility] LAB ONLY COVID INTERPRETATION 2022-06-17 Yoni Mckee iversity of 20:04:00 [facility] CBC WITH DIFF 2022-06-17 Yoni Mckee [place] of 20:04:00 [facility] BASIC METABOLIC PANEL (NA, K, 2022-06-17 Yoni Mckee iversity of CL, CO2, GLUCOSE, BUN, 20:04:00 [facility] ical CREATININE, CA) Branch HEPATIC FUNCTION PANEL ([id number]) 2022-06-17 Yoni Mckee niversity of (ALB,T.PRO,BILI 20:04:00 [facility] T,BU/BC,ALT,AST,ALK PHOS) Branch LIPASE 2022-06-17 Yoni Mckee of 20:04:00 [facility] TROPONIN I 2022-06-17 Yoni Mckee of 20:04:00 [facility] N-TERMINAL PRO-BNP 2022-06-17 Yoni Mckee of 20:04:00 [facility] COVID-19 (ID NOW RAPID TESTING) 2022-06-17 Yoni Mckee of 20:04:00 [facility] GALV ONLY - INFLUENZA A B RSV 2022-06-17 Yoni Mckee iversity of PCR 20:04:00 [facility] LAB ONLY COVID INTERPRETATION 2022-06-17 Yoni Mckee iversity of 20:04:00 [facility] ALPHA FETOPROTEIN 2022-06-17 [facility] 20:04[facility]00 [facility] HEPATITIS B SURFACE ANTIBODY 2022-06-17 Michelle Grande Uni versity of 20:04:00 [facility] HEPATITIS B SURFACE ANTIGEN 2022-06-17 [facility] ersity of 20:04:00 [facility] HEPATITIS A VIRUS ANTIBODY IGM 2022-06-17 Michelle Grande [facility] of 20:04:00 [facility] LIPASE 2022-06-17 Yoni Mckee [place] of 20:04:00 [facility] TROPONIN I 2022-06-17 Yoni Mckee [place] of 20:04:00 [facility] HEPATIC FUNCTION PANEL ([id number]) 2022-06-17 Yoni Mckee niversity of (ALB,T.PRO,BILI 20:04:00 [facility],BU/BC,ALT,AST,ALK PHOS) Branch BASIC METABOLIC PANEL (NA, K, 2022-06-17 Yoni Mckee iversity of CL, CO2, GLUCOSE, BUN, 20:04:00 [facility] ical CREATININE, CA) Branch ALPHA FETOPROTEIN 2022-06-17 [facility] 20:04:00 [facility] CBC WITH DIFF 2022-06-17 Yoni Mckee of 20:04:00 [facility] HEPATITIS B SURFACE ANTIBODY 2022-06-17 Michelle Grande Uni versity of 20:04:00 [facility] HEPATITIS B SURFACE ANTIGEN 2022-06-17 [facility] ersity of 20:04:00 [facility] HEPATITIS A VIRUS ANTIBODY IGM 2022-06-17 Michelle Grande [facility] of 20:04:00 [facility] GALV ONLY - INFLUENZA A B RSV 2022-06-17 Yoni Mckee Un iversity of PCR 20:04:00 [facility] N-TERMINAL PRO-BNP 2022-06-17 Yoni Mckee of 20:04:00 [facility] COVID-19 (ID NOW RAPID TESTING) 2022-06-17 Yoni Mckee of 20:04:00 [facility] LAB ONLY COVID INTERPRETATION 2022-06-17 Yoni Mckee iversity of 20:04:00 [facility] LIPASE 2022-06-17 Yoni Mckee of 20:04:00 [facility] TROPONIN I 2022-06-17 Yoni Mckee of 20:04:00 [facility] HEPATIC FUNCTION PANEL ([id number]) 2022-06-17 Yoni Mckee niversity of (ALB,T.PRO,BILI 20:04:00 [facility],BU/BC,ALT,AST,ALK PHOS) [place] BASIC METABOLIC PANEL (NA, K, 2022-06-17 Yoni Mckee iversity of CL, CO2, GLUCOSE, BUN, 20:04:00 [facility] ical CREATININE, CA) [place] ALPHA FETOPROTEIN 2022-06-17 [facility] 20:04:00 [facility] CBC WITH DIFF 2022-06-17 Yoni Mckee of 20:04:00 [facility] HEPATITIS B SURFACE ANTIBODY 2022-06-17 [facility] of 20:04:00 [facility] HEPATITIS B SURFACE ANTIGEN 2022-06-17 [facility] ersity of 20:04:00 [facility] HEPATITIS A VIRUS ANTIBODY IGM 2022-06-17 Michelle Grande niversity of 20:04:00 [facility] GALV ONLY - INFLUENZA A B RSV 2022-06-17 Yoni Mckee iversity of PCR 20:04:00 [facility] N-TERMINAL PRO-BNP 2022-06-17 Yoni Mckee of 20:04:00 [facility] COVID-19 (ID NOW RAPID TESTING) 2022-06-17 Yoni Mckee of 20:04:00 [facility] HB ECG ROUTINE & RHYTHM STRIP 2022-06-17 oYni Mckee iversity of 19:51:18 [facility] HB ECG ROUTINE & RHYTHM STRIP 2022-06-17 Yoni Mckee iversity of 19:51:18 [facility] HB ECG ROUTINE & RHYTHM STRIP 2022-06-17 Yoni Mckee iversity of 19:51:18 [facility] CONSENT/REFUSAL FOR DIAGNOSIS 2022-06-17 Doctor Unassigned, [place] of AND TREATMENT 19:29:59 [place] [facility] CONSENT/REFUSAL FOR DIAGNOSIS 2022-06-17 Doctor Unassigned, [facility] AND TREATMENT 19:29:59 [place] [facility] CONSENT/REFUSAL FOR DIAGNOSIS 2022-06-17 Doctor Unassigned, [facility] AND TREATMENT 19:29:59 [place] [facility] HOSPITAL ADMISSION 2022-06-17 Doctor Unassigned, [facility] 05:01:00 [place] [facility] ENDOSCOPIC RETROGRADE 2022-06-[address] [facility] CHOLANGIOPANCREATOGRAPHY, WITH 11:30:00 M [facility] STENT REMOVAL XR ABDOMEN/KUB 1 VIEW PORTABLE 2022-06-08 Nuvia Burton [facility] 17:47:00 [facility] 2D ECHO W/ DOPPLER (CW/PW/COLOR) 2022-06-[address] [facility] 13:46:[address] [facility] [address] ABDOMEN/PELVIS WITH IV 2022-06-08 Jaqueline Peck [facility] CONTRAST 09:50:00 [facility] XR CHEST 1 VIEW PORTABLE / 2022-06-07 Miguel A Doug [facility] BEDSIDE 14:42:00 [facility] SARS-COV2/INFLUENZA/RSV RT-PCR 2022-06-[address] [facility] 13:30:00 [facility] PERMANENT LAB REPORT - SCAN 2022-06-07 Provider, Francisco [facility] 00:00:00 [facility] CBC W/PLT COUNT & AUTO 2022-05-[address] [facility] DIFFERENTIAL 04:18:00 [facility] COMPREHENSIVE METABOLIC PANEL 2022-05-[address] [facility] 04:18:00 [facility] CBC W/PLT COUNT & AUTO 2022-05-[address] [facility] [facility] DIFFERENTIAL 04:18:00 [facility] CBC W/PLT COUNT & AUTO 2022-05-[address] [facility] DIFFERENTIAL 03:21:00 [facility] COMPREHENSIVE METABOLIC PANEL 2022-05-[address] [facility] 03:21:00 [facility] CBC W/PLT COUNT & AUTO 2022-05-[address] [facility] DIFFERENTIAL 03:21:00 [facility] BODY FLUID CULTURE + GRAM STAIN 2022-05-[address] [facility] 16:45:00 [facility] IR TUNNELED DRAINAGE CATHETER 2022-05-[address] [facility] PLACEMENT 16:22:00 [facility] CBC W/PLT COUNT & AUTO 2022-05-[address] [facility] [facility] DIFFERENTIAL 05:15:00 [facility] COMPREHENSIVE METABOLIC PANEL 2022-05-[address] [facility] 05:15:00 [facility] PROTHROMBIN TIME/INR 2022-05-[address] [facility] 05:15:00 [facility] CBC W/PLT COUNT & AUTO 2022-05-[address] [facility] DIFFERENTIAL 05:15:00 [facility] SARS-COV2/RT-PCR ([facility] & REF 2022-05-[address] [facility] LABS) 04:37:00 [facility] TYPE AND SCREEN, AUTOMATED 2022-05-15 [facility] 01:25:00 [facility] BASIC METABOLIC PANEL 2022-05-[address] [facility] 01:24:00 [facility] HEPATIC FUNCTION PANEL 2022-05-[address] [facility] 01:24:00 [facility] PROTHROMBIN TIME/INR 2022-05-[address] [facility] 01:24:00 [facility] PHOSPHORUS 2022-05-[address] [facility] 01:24:00 [facility] MAGNESIUM 2022-05-[address] [facility] 01:24:00 [facility] CBC W/PLT COUNT & AUTO 2022-05-[address] [facility] DIFFERENTIAL 01:24:00 [facility] CBC W/PLT COUNT & AUTO 2022-05-[address] [facility] DIFFERENTIAL 01:24:00 [facility] BASIC METABOLIC PANEL 2022-05-[address] [facility] 03:30:00 [facility] CBC W/PLT COUNT & AUTO 2022-05-[address] [facility] DIFFERENTIAL 03:30:00 [facility] MAGNESIUM 2022-05-[address] [facility] 03:30:00 [facility] HEPATIC FUNCTION PANEL 2022-05-[address] [facility] 03:30:00 [facility] LIPID PANEL 2022-05-[address] [facility] 03:30:00 [facility] CBC W/PLT COUNT & AUTO 2022-05-[address] [facility] DIFFERENTIAL 03:30:[address] [facility] [address] ABDOMEN/PELVIS WITH IV 2022-05-[address] [facility] CONTRAST 19:08:00 [facility] REPORT OF PROCEDURE - ENDOSCOPY 2022-05-[address] [facility] URL 14:45:00 [facility] ERCP, WITH SPHINCTEROTOMY 2022-05-[address] [facility] 08:00:00 [facility] ENDOSCOPIC RETROGRADE 2022-05-[address] [facility] CHOLANGIOPANCREATOGRAPHY, WITH 08:00:00 [facility] BILE DUCT STENT INSERTION ERCP, WITH BALLOON SWEEP OF BILE 2022-05-[address] [facility] DUCTS 08:00:00 [facility] PROCEDURE W/ C-ARM 2022-05-[address] [facility] 08:00:00 [facility] CBC (HEMOGRAM ONLY) 2022-05-[address] [facility] 03:20:00 [facility] COMPREHENSIVE METABOLIC PANEL 2022-05-[address] [facility] 03:20:00 [facility] SARS-COV2/RT-PCR ([facility] & REF 2022-05-[address] [facility]) 17:00:00 [facility] Plan of Care Planned Activity Planned Date Details Comments Source Future Scheduled 2027-05-11 Lipid panel (procedure) [facility] 00:00:00 [code = 50491307] Medical Ce nter Future Scheduled 2027-05-11 Lipid panel (procedure) [facility] 00:00:00 [code = 88185598] Medical Ce nter Future Scheduled 2027-05-11 Lipid panel (procedure) [facility] 00:00:00 [code = 76506963] Medical Ce nter Future Scheduled 2027-05-11 Lipid panel (procedure) [facility] 00:00:00 [code = 62780466] Medical Ce nter Future Scheduled 2027-05-11 Lipid panel (procedure) [facility] 00:00:00 [code = 03196452] Medical Ce nter Future Scheduled 2027-05-11 Lipid panel (procedure) [facility] 00:00:00 [code = 57071644] Medical Ce nter Future Scheduled 2023-05-10 Tobacco [...] [facility] Test 00:00:00 (Season Ended) [code = [facility] INFLUENZA VACCINE (Season Ended)] Future Scheduled [...] [facility] 00:00:00 [code = CT Colonography [facility] (combo)] Future Scheduled 1959 Screening for malignant [facility] 00:00:00 neoplasm of colon Medical Ce nter (procedure) [code = 975596209] Future Scheduled 1959 Screening for malignant [facility] 00:00:00 neoplasm of colon Medical Ce nter (procedure) [code = 113834952] Future Scheduled 1959 Screening for malignant [facility] 00:00:00 neoplasm of colon Medical Ce nter (procedure) [code = 438107552] Future Scheduled 1959 Screening for malignant [facility] 00:00:00 neoplasm of colon Medical Ce nter (procedure) [code = 838549259] Future Scheduled 1959 Sigmoidoscopy [code = [facility] Sigmoidoscopy] Medical Cente r Future Scheduled 1959 CT Colonography (combo) [facility] 00:00:00 [code = CT Colonography [facility] (combo)] Future Scheduled 1959 Screening for malignant [facility] 00:00:00 neoplasm of colon Medical Ce nter (procedure) [code = 105090856] Future Scheduled 1959 Screening for malignant [facility] 00:00:00 neoplasm of colon Medical Ce nter (procedure) [code = 593157827] Future Scheduled 1959 Screening for malignant [facility] 00:00:00 neoplasm of colon Medical Ce nter (procedure) [code = 808486198] Future Scheduled 1959 Screening for malignant [facility] 00:00:00 neoplasm of colon Medical Ce nter (procedure) [code = 279592937] Future Scheduled 1959 Sigmoidoscopy [code = [facility] 00:00:00 Sigmoidoscopy] Medical Cente r Future Scheduled 1959 CT Colonography (combo) [facility] 00:00:00 [code = CT Colonography [facility] (combo)] Future Scheduled 1959 Screening for malignant [facility] 00:00:00 neoplasm of colon Medical Ce nter (procedure) [code = 317801714] Future Scheduled 1959 Screening for malignant [facility] 00:00:00 neoplasm of colon Medical Ce nter (procedure) [code = 823740553] Future Scheduled 1959 Screening for malignant [facility] 00:00:00 neoplasm of colon Medical Ce nter (procedure) [code = 201185314] Future Scheduled 1959 Screening for malignant [facility] 00:00:00 neoplasm of colon Medical Ce nter (procedure) [code = 922128042] Future Scheduled 1959 Sigmoidoscopy [code = [facility] 00:00:00 Sigmoidoscopy] Medical Cente r Future Scheduled 1959 CT Colonography (combo) [facility] 00:00:00 [code = CT Colonography [facility] (combo)] Future Scheduled 1959 Screening for malignant [facility] 00:00:00 neoplasm of colon Medical Ce nter (procedure) [code = 880084860] Future Scheduled 1959 Screening for malignant [facility] 00:00:00 neoplasm of colon Medical Ce nter (procedure) [code = 685024073] Future Scheduled 1959 Screening for malignant [facility] 00:00:00 neoplasm of colon Medical Ce nter (procedure) [code = 851334997] Future Scheduled 1959 Screening for malignant [facility] 00:00:00 neoplasm of colon Medical Ce nter (procedure) [code = 088514571] Future Scheduled 1959 Sigmoidoscopy [code = [facility] 00:00:00 Sigmoidoscopy] Medical Arlenee r Future Scheduled 1959 CT Colonography (combo) [facility] 00:00:00 [code = CT Colonography [facility] (combo)] Future Scheduled 1959 Screening for malignant [facility] 00:00:00 neoplasm of colon Medical Ce nter (procedure) [code = 500094923] Future Scheduled 1959 Screening for malignant [facility] 00:00:00 neoplasm of colon Medical Ce nter (procedure) [code = 209840948] Future Scheduled 1959 Screening for malignant [facility] 00:00:00 neoplasm of colon Medical Ce nter (procedure) [code = 069364708] Future Scheduled 1959 Screening for malignant [facility] 00:00:00 neoplasm of colon Medical Ce nter (procedure) [code = 729796206] Future Scheduled 1959 Sigmoidoscopy [code = [facility] 00:00:00 Sigmoidoscopy] Medical Cente r Future Scheduled 1959 CT Colonography (combo) [facility] 00:00:00 [code = CT Colonography [facility] (combo)] Future Scheduled 1959 Screening for malignant [facility] 00:00:00 neoplasm of colon Medical Ce nter (procedure) [code = 640066116] Future Scheduled 1959 Screening for malignant [facility] 00:00:00 neoplasm of colon Medical Ce nter (procedure) [code = 844402491] Future Scheduled 1959 Screening for malignant [facility] 00:00:00 neoplasm of colon Medical Ce nter (procedure) [code = 903942883] Future Scheduled 1959 Screening for malignant [facility] 00:00:00 neoplasm of colon Medical Ce nter (procedure) [code = 403542055] Future Scheduled 1959 Sigmoidoscopy [code [facility] 00:00:[facility] Sigmoidoscopy] Medical [facility] Encounters Start End Encounter Admission Attending Care Care Encounter Source Date/Time Date/Time Type Type Clinicians Facility Department ID 2022-05-14 [facility] [id number] [facility] 12:12:34 RADHA 2022-12-30 2022-12-30 Telephone Chris Brown [id number] Univers 00:00:00 00:00:00 DEMI [id number] it y of [id number] Bandar as [phone] [facility] [address] Branch 2022-11-29 2022-11-30 Outpatient X [facility] [id number] Univers 14:07:00 18:00:00 HEIDI ity of [facility] 2022-11-29 2022-11-30 Emergency BillyDeniz ryan [id number] Univers 14:07:00 18:00:00 Heidi Lugo [id number] ity [place] [id number] Bandar as [phone] [facility] [address] Branch 2022-10-22 2022-10-22 Orders Doctor JASON [id number] [facility] 00:00:00 00:00:00 Only UnassignedDEMI [id number] ity of [place] [facility] [id number] Bandar as [phone] [facility] 009 Branch 2022-09-27 2022-09-27 Refdwayne Hendricksonsuzanne [facility] 1.2.840.114 [id number] Univers 00:00:00 00:00:00 Hamza PRIMARY 350.1.13.10 it y [place] 515.0698779 Co dical 390 Branch 2022-09-25 2022-09-25 Orders Doctor JASON 1.2.840.114 [id number] Univers 00:00:00 00:00:00 Only Unassigned, DEMI 350.1.13.10 ity of [place] [facility] 4.2.7.2.686 Bandar as [phone] [facility] 009 Branch 2022-08-17 2022-08-17 Orders Doctor JASON 1.2.840.114 [id number] Univers 00:00:00 00:00:00 Only Unassigned, DEMI 350.1.13.10 ity of [place] [facility] 4.2.7.2.686 Bandar as 924.5207281 [facility] 009 Branch 2022-08-09 2022-08-09 Transition MADHU Hutchison 1.2.840.114 [id number] Univers 00:00:00 00:00:00 of Care Tessa GONZALEZ 350.1.13.10 [place] [phone] [facility] 403 Branch 2022-07-26 2022-08-07 Inpatient U MIKAYLA [facility] [id number] Univers 12:58:00 11:23:00 KHANG ity of [facility] 2022-07-26 2022-08-07 Hospital Chris Romero 1.2.840.1 [id number] Univers 12:58:00 11:23:00 Encounter Khang Linares 23049.1.1 ity of 3.104.2.7 [place] .3.777655 Medica l .8 Branch 2022-08-06 2022-08-[address] Jason 1.2.840.3 [id number] Univers 14:02:30 14:02:30 Event Branden 99702.1.1 ity of 3.104.2.7 [place] .3.336918 Medica l .8 [place] 2022-08-06 2022-08-06 Travel 1.2.840.1 1.2.492.119 2695 [id number] Univers 00:00:00 00:00:00 85766.1.1 350.1.13.10 ity of 3.104.2.7 4.[place].7.3.698 [place] .3.287763 084.8 Medica l .8 [place] 2022-07-29 2022-07-29 Case Petrmad, 1.2.840.5 [id number] Univers 00:00:00 00:00:00 Management Melvin 32069.1.1 i ty of 3.104.2.7 [place] .3.209887 Medica l .8 [place] 2022-07-28 2022-07-28 Anesthesia Darrell, 1.2.840.7 [id number] Univers 13:03:13 13:03:13 Event Yulissa Watts 34655.1.1 ity of 3.104.2.7 [place] .3.561766 Medica l .8 [place] 2022-07-26 2022-07-26 Outpatient Pollo [facility] [id number] Univers 00:00:00 00:00:00 HUNTER ity of [facility] 2022-07-26 2022-07-26 Travel 1.2.840.1 1.2.884.720 4325 [id number] Univers 00:00:00 00:00:00 45186.1.1 350.1.13.10 ity of 3.104.2.7 4.[place].7.3.698 [place] .3.933883 084.8 Medica l .8 [place] 2022-07-12 2022-07-12 Outpatient R [facility] [id number] Univers 11:15:00 13:52:11 HEIDI itmitchel of [facility] 2022-07-12 2022-07-12 Office Heidi Lugo 1.2.840.1 [id number] Univers 11:15:00 13:52:11 Visit Faculty, Surgery Transplant 52529.1.1 ity of 3.104.2.7 [place] .3.443240 Medica l .8 Branch 2022-07-12 2022-07-12 Travel 1.2.840.1 1.2.270.147 [id number] [id number] Univers 00:00:00 00:00:00 76344.1.1 350.1.13.10 ity of 3.104.2.7 4.[place].7.3.698 [place] .3.828652 084.8 Medica l .8 Branch 2022-07-09 2022-07-09 Emergency X BRITTA IALUÍS ERT [id number] Univers 16:28:00 22:52:00 CASIE ity of [facility] 2022-07-09 2022-07-09 Emergency Casie Callejas 1.2.840.1 [id number] Univers 16:28:00 22:52:00 Jose Elias Sheikh 40742.1.1 ity of 3.104.2.7 [place] .3.813443 Medica l .8 Branch 2022-07-09 2022-07-09 Travel 1.2.840.1 1.2.518.469 1009 [id number] Univers 00:00:00 00:00:00 49987.1.1 350.1.13.10 ity of 3.104.2.7 4.[place].7.3.698 [place] .3.087537 084.8 Medica l .8 Branch 2022-06-29 2022-06-29 Transition Hutchison, 1.2.840.2 [id number] Univers 00:00:00 00:00:00 of Care Tessa 75857.1.1 i ty of 3.104.2.7 [place] .3.876848 Medica l .8 Branch 2022-06-17 2022-06-27 [facility] Yoni Mckee 1.2.840.1 10 [id number] Univers 14:25:00 14:20:00 Chris Slater 45547.1.1 ity of Jeselesliekeara Heath Jay 3.104.2.7 [place] .3.205195 Medica l .8 Branch 2022-06-17 2022-06-27 Inpatient X [facility] [id number] Univers 14:25:00 14:20:00 HEATH ity of [facility] 2022-06-25 2022-06-25 Anesthesia KavitacarisaGomez 1.2.840.2 [id number] Univers 09:41:00 13:15:00 Event Yulissa Ramírez 29285.1.1 ity of 3.104.2.7 [place] .3.398034 Medica l .8 Branch 2022-06-24 2022-06-24 Orders Josephine [facility] [id number] [facility] 00:00:00 00:00:00 Only Nuvia [facility] 2022-06-23 2022-06-23 Anesthesia Botello, 1.2.840.1 [id number] [facility] 09:51:00 11:14:00 Event Larisa 62482.1.1 [place] .3.822271 Medica l .8 Branch 2022-06-23 2022-06-23 Surgery Parupudi, 1.2.840.8 [id number] Univers 07:00:00 08:24:00 Goran 81570.1.1 ity of 3.104.2.7 [place] .3.601142 Medica l .8 Branch 2022-06-17 2022-06-17 Travel 1.2.840.1 1.2.134.826 [id number] Univers 00:00:00 00:00:00 12432.1.1 350.1.13.10 ity of 3.104.2.7 4.[place].7.3.698 [place] .3.834197 084.8 Medica l .8 Branch 2022-06-07 2022-06-09 Inpatient UR [facility] Medicine [id number] [facility] 16:25:00 13:05:00 2022-06-07 2022-06-09 [facility] UR Casie Johnson [facility] [id number] [facility] [address] 16:25:00 13:05:00 Encounter [facility] 2022-05-31 2022-05-31 Janell Bee [facility] [id number] 00:00[facility]00 00:00:00 ion Cheryl [facility] 2022-05-14 2022-05-19 Inpatient ER CHRISTEN, SLE Inter Rad [id number] [facility] 23:13:00 18:01:00 [facility] 2022-05-14 2022-05-19 [facility] ER Ayo Price [facility] [id number] [facility] 23:13:00 18:01:00 Encounter Isidro Pappas [facility] 2022-05-09 2022-05-11 Inpatient [facility] [id number] [facility] 13:34:00 16:33:00 SANDRA 2022-05-09 2022-05-11 [facility] UR Yue Moulton [facility] [id number] [address] 13:34:00 16:33:[address] [facility] 2022-05-10 2022-05-10 Anesthesia David Michael [facility] [id number] 08:25:00 10:25:00 Event [facility] 2022-05-10 2022-05-10 Surgery Fam, [facility] [id number] 08:00:00 09:14:00 [facility] 2022-05-09 2022-05-09 Outpatient [facility] [id number] [facility] 13:34:00 23:59:00 Shadi 2022-01-07 2022-01-07 [facility] [id number] [facility] 14:41:00 14:41:00 Ashvin Ward [facility] 2018-10-23 2018-10-23 Outpatient Robert Castillo 23 [id number] Common 09:00:00 09:00:00 [facility] 2018-09-06 2018-09-06 Outpatient Robert Castillo 23 [id number] Common 16:13:00 16:13:00 t [facility] [address] Family - [facility] Family Medicine [facility] 2018-08-23 2018-08-23 Outpatient Robert Castillo 23 [id number] Common 14:30:00 14:30:00 t [facility] 2018-08-22 2018-08-22 Outpatient Robert Castillo 23 [id number] Common 15:00:00 15:00:00 t [facility] Results Test Description Test Time [...] See_Comment [Au tomated message] The system which Adteractive nerated this result transmit loki reference range: [...] 34.2 g/dL 31.2-35.0 RDW-SD (test code = 38404-1) 40.7 fL 38.5-51.6 RDW-CV (test code = 788-0) 12.8 % 12.1-15.4 PLT (test code = 777-3) 147 See_Comment L [Au tomated message] The system which ge nerated this result transmit loki reference range: 150 - 32 8 10*3/?L. The reference range was not used to interpret th is result as normal/abnormal . MPV (test code = 94893-8) 10.3 fL 9.8-13.0 NRBC/100 WBC (test code = 0.0 See_Comment [ Automated message] The 8080508308) system which ge nerated this result transmit loki reference range: 0.0 - 10 .0 /100 WBCs. The reference r helen was not used to interpr et this result as normal/abnor mal. NRBC x10^3 (test code = See_Comment [Au tomated message] The 1355991358) system which ge nerated this result transmit loki reference range: 10*3/?L. The reference range was not u sed to interpret this result as normal/abnormal . GRAN MAT (NEUT) % (test code 54.7 % = 770-8) IMM GRAN % (test code = 0.90 % 3265966486) LYMPH % (test code = 736-9) 35.1 % MONO % (test code = 5905-5) 7.7 % EOS % (test code = 713-8) 0.9 % BASO % (test code = 706-2) 0.7 % GRAN MAT x10^3(ANC) (test 2.96 10*3/uL 1.99-6.95 code = 0400836578) IMM GRAN x10^3 (test code = 0.05 10*3/uL 0.00-0.06 8404200220) LYMPH x10^3 (test code = 1.90 10*3/uL 1.09-3.23 731-0) MONO x10^3 (test code = 0.42 10*3/uL 0.36-1.02 742-7) EOS x10^3 (test code = 0.05 10*3/uL 0.06-0.53 L 711-2) BASO x10^3 (test code = 0.04 10*3/uL 0.01-0.09 704-7) Lab Interpretation (test Abnormal code = 88904-3) [facility]. METABOLIC PANEL (67536)2022-11-29 22:31:04 Test Item Value Reference Range Interpretation Comments NA (test code = 139 mmol/L 135-145 2496883533) K (test code = 4.2 mmol/L 3.5-5.0 5780314187) CL (test code = 105 mmol/L 98-108 4655641153) CO2 TOTAL (test code = 25 mmol/L 23-31 9512785778) AGAP (test code = 9 2-16 2062798731) BUN (test code = 16 mg/dL 7-23 7624251058) GLUCOSE (test code = 83 mg/dL 70-110 1201410335) CREATININE (test code = 0.98 mg/dL 0.60-1.25 2136636221) TOTAL BILI (test code = 0.5 mg/dL 0.1-1.5 7545941061) CALCIUM (test code = 8.8 mg/dL 8.6-10.6 7825960655) T PROTEIN (test code = 6.7 g/dL 6.3-8.2 0796407490) ALBUMIN (test code = 4.2 g/dL 3.5-5.0 1447150407) ALK PHOS (test code = 434 U/L 34-122 H 6719016462) ALTv (test code = 101 U/L 5-50 H 1742-6) AST(SGOT) (test code = 85 U/L 13-40 H 4471958301) eGFR (test code = 77.5 mL/min/1.73m2 7932326865) JUAN DAVID (test code = JUAN DAVID) [...] tests). Lab Interpretation Abnormal (test code = 93874-2) [facility] [id number] 22:39:00 [facility] H[facility]WARDName: CARROL ANNE : 1960 Sex: MFINAL REPORT Patient: Carrol Anne DDOB: 1960MRN: [id number] Accession number: [id number] CT, ABDOMEN \\T\\ PELVIS, WITH IV CONTRAST [...] collection. 4.Cholecystectomy with biliary stent. Signed: Yaquelin [facility] Verified Date/Time: 09/14/2022 22:39:56 Electronically signed by: YAQUELIN OSORIO MD on 310:39 PM2D Echo W/Doppler(CW/PW/Color)2022-09-01 10:41:09Ejection FractionSLEH ECHO HE[facility] W/Doppler(CW/PW/Color) 2022-09-01 10:41:09Ejection FractionSLEH ECHO [facility] W/Doppler(CW/PW/Color)2022-09-01 10:41:09Ejection FractionSLEH [facility]RSV [id number] 23:45:12 Test Item Value Reference Interpretation Comments Range SARS-COV2/RT-PCR Negative Negative The SARS-Co V-2 (test code = target nucleic 86370-1) acids are not detected in thi s [...] (test code = [place] re 43657-4) not detected in this specimen. Influenza B RT-PCR Negative Negative The Flu B target (test code = [place] 90318-8) not detected in this specimen. RSV by RT-PCR (test Negative Negative The RSV target code = 98210-0) nucleic acid s are not detected in [...] SARS-CoV-2/Flu/RSV by their healthcare provider. Results from [facility] Xpert Xpress SARS-CoV-2/Flu/RSV test should be correlated [...] the Act. Fact Sheet for Healthcare Providers:https://w Ring/Docu ments/Xpert%20Xpres s%20SARS%20CoV-2/Fa ct%20Sheets/302-390 2%16GYVN-KHW-9%20HE ALTHCARE%20PROVIDER S%20FACT%20SHEET.pd f Fact Sheet for Healthcare Patients:https://jyoti N(i)²/Docum ents/Xpert%20Xpress %20SARS%20Cov-2/Fac t%20Sheets/302-3801 %69AKIK-FPU-9%20PAT IENT%20FACT%20SHEET .pdfThe presence of SARS-CoV-2/FLU/RSV viral nucleic [...] SARS-CoV-2/Flu/RSV by their healthcare provider. Results from [facility] Xpert Xpress SARS-CoV-2/Flu/RSV test should be correlated [...] the Act. Fact Sheet for Healthcare Providers:https://w Ring/Docu ments/Xpert%20Xpres s%20SARS%20CoV-2/Fa ct%20Sheets/302-390 2%39LZSY-HEJ-8%20HE ALTHCARE%20PROVIDER S%20FACT%20SHEET.pd f Fact Sheet for Healthcare Patients:https://jyoti N(i)²/Docum ents/Xpert%20Xpress %20SARS%20Cov-2/Fac t%20Sheets/302-3801 %54EHPZ-SGV-0%20PAT IENT%20FACT%20SHEET .pdf Lab Interpretation Normal (test code = 32123-5) [facility] [id number] 23:45:12 Test Item Value Reference Interpretation Comments Range SARS-COV2/RT-PCR Negative Negative The SARS-Co V-2 (test code = target nucleic 30084-9) acids are not detected in thi s [...] (test code = [place] [address]3277-4) not detected in this specimen. Influenza B RT-PCR Negative Negative The Flu B target (test code = [place] 92153-1) not detected in this specimen. RSV by RT-PCR (test Negative Negative The RSV target code = 73228-1) nucleic acid s are not detected in [...] SARS-CoV-2/Flu/RSV by their healthcare provider. Results from [facility] Xpert Xpress SARS-CoV-2/Flu/RSV test should be correlated [...] the Act. Fact Sheet for Healthcare Providers:https://w OhLife.BandPage/Docu ments/Xpert%20Xpres s%20SARS%20CoV-2/Fa ct%20Sheets/302-390 2%18UKTY-MNG-5%20HE ALTHCARE%20PROVIDER S%20FACT%20SHEET.pd f Fact Sheet for Healthcare Patients:https://ww N(i)²/Docum ents/Xpert%20Xpress %20SARS%20Cov-2/Fac t%20Sheets/302-3801 %84LUGX-CFT-9%20PAT IENT%20FACT%20SHEET .pdfThe presence of SARS-CoV-2/FLU/RSV viral nucleic [...] the Act. Fact Sheet for Healthcare Providers:https://w Ring/Docu ments/Xpert%20Xpres s%20SARS%20CoV-2/Fa ct%20Sheets/302-390 2%35NAVJ-DWB-3%20HE ALTHCARE%20PROVIDER S%20FACT%20SHEET.pd f Fact Sheet for Healthcare Patients:https://ww N(i)²/Docum ents/Xpert%20Xpress %20SARS%20Cov-2/Fac t%20Sheets/302-3801 %74ZKZE-KTB-7%20PAT IENT%20FACT%20SHEET .pdf Lab Interpretation Normal (test code = 01209-0) [facility] [id number] 23:45:12 Test Item Value Reference Interpretation Comments Range SARS-COV2/RT-PCR Negative Negative The SARS-Co V-2 (test code = target nucleic 14407-6) acids are not detected in thi s [...] om SARS-CoV-2 in a nasopharyngeal swab specimen [facility] from individual s suspected of COVID-19 by the ir healthcare provider. Influenza A RT-PCR Negative Negative The Flu A target (test code = [place] 03381-7) not detected in this specimen. Influenza B RT-PCR Negative Negative The Flu B target (test code = nucleic [place] re 31983-1) not detected in this specimen. RSV by RT-PCR (test Negative Negative The RSV target code = 83665-3) nucleic acid s are not detected in [...] the Act. Fact Sheet for Healthcare Providers:https://w Ring/Docu ments/Xpert%20Xpres s%20SARS%20CoV-2/Fa ct%20Sheets/302-390 2%54HXDU-LYG-3%20HE ALTHCARE%20PROVIDER S%20FACT%20SHEET.pd f Fact Sheet for Healthcare Patients:https://jyoti N(i)²/Docum ents/Xpert%20Xpress %20SARS%20Cov-2/Fac t%20Sheets/302-3801 %26ZMOQ-SFG-3%20PAT IENT%20FACT%20SHEET .pdfThe presence of SARS-CoV-2/FLU/RSV viral nucleic [...] the Act. Fact Sheet for Healthcare Providers:https://w Ring/Docu ments/Xpert%20Xpres s%20SARS%20CoV-2/Fa ct%20Sheets/302-390 2%02FRLZ-MSP-0%20HE ALTHCARE%20PROVIDER S%20FACT%20SHEET.pd f Fact Sheet for Healthcare Patients:https://jyoti N(i)²/Docum ents/Xpert%20Xpress %20SARS%20Cov-2/Fac t%20Sheets/302-3801 %12DGFE-LHR-6%20PAT IENT%20FACT%20SHEET .pdf Lab Interpretation Normal (test code = 53317-0) [facility]FLUENZA/RSV [id number] 23:45:12 Test Item Value Reference Range Interpretation Comments SARS-COV2/RT-PCR Negative Negative The SARS-Co V-2 target (test code = nucleic acids a re not 4400584) detected in thi s specimen. Negat prince [...] individuals una pected of COVID-19 by the [facility] ide. INFLUENZA A RT-PCR Negative Negative The Flu A target nucleic (test code = acids are not d etected in 5809629) this specimen. INFLUENZA B RT-PCR Negative Negative The Flu B target nucleic (test code = acids are not d etected in 0072130) this specimen. RSV RT-PCR (test Negative Negative The RSV tar get nucleic code = 8390667) acids are no t detected in this [...] Xpress SARS-CoV-2/Flu/RSV by their healthcareprovider. Results from [facility] Xpert Xpress SARS-CoV-2/Flu/RSV test should be correlated [...] of the Act.Fact Sheet for Healthcare Providers:https ://www.BandPage/Documents/Xpert%20Xpress%20SARS%20CoV-2/Fact%20Sheets/302-390 2%88QULI-FJF-7%20HEALTHCARE%20PROVIDERS%20FACT%20SHEET.pdfFact Sheet for Healthcare Patients:https://www.BandPage/Docum ents/Xpert%20Xpress%20SARS%20Cov-2/Fact%20Sheets/302-3801%61PTDI-RAN-9%20PATIENT %20FACT%20SHEET.pdfThe presence of SARS-CoV-2/FLU/RSV viral nucleic acids [...] SARS-CoV-2/Flu/RSV by their healthcare provider. Results from [employer] Xpert Xpress SARS-CoV-2/Flu/RSV test should be correlated [...] of the Act.Fact Sheet for Healthcare Providers:https:/ /www.BandPage/Documents/Xpert%20Xpress%20SARS%20CoV-2/Fact%20Sheets/302-3902% 22VNGT-AIM-0%20HEALTHCARE%20PROVIDERS%20FACT%20SHEET.pdfFact Sheet for Healthcare Patients:https://www.BandPage/Documen ts/Xpert%20Xpress%20SARS%20Cov-2/Fact%20Sheets/302-3801%99MYGI-IZY-3%20PATIENT%2 0FACT%20SHEET.pdfLactic Acid Whole [id number] 12:44:43 Test Item Value Reference Range Interpretation Comments LACTIC ACID (test code = 1.06 mmol/L 0.50-2.20 2917081291) Lab Interpretation (test code = Normal 85766-6) [facility] [id number] 12:44:43 Test Item Value Reference Range Interpretation Comments LACTIC ACID (test code = 1.06 mmol/L 0.50-2.20 5622257973) Lab Interpretation (test code = Normal 89352-7) [facility] Whole [id number] 12:44:43 Test Item Value Reference Range Interpretation Comments LACTIC ACID (test code = 1.06 mmol/L 0.50-2.20 2279748213) Lab Interpretation (test code = Normal 83205-3) [facility] Hospital[facility]aut[facility] Whole [id number] 12:44:43 Test Item Value Reference Range Interpretation Comments LACTIC ACID (test code = 1.06 mmol/L 0.50-2.20 8343897405) Lab Interpretation (test code = Normal 26810-9) [facility] Whole [id number] 12:44:43 Test Item Value Reference Range Interpretation Comments LACTIC ACID (test code = 1.06 mmol/L 0.50-2.20 7165650103) Lab Interpretation (test code = Normal 63378-6) [facility] WITH [id number] 11:48:54 Test Item Value Reference Range Interpretation [...] RDW-SD (test code = 39.4 fL 38.5-51.6 42929-3) RDW-CV (test code = 13.0 % 12.1-15.4 788-0) PLT (test code = See_Comment L [Automated 777-3) message] The sy stem which generated this result transmitted reference range : 150 - 328 10*3/ ?L. The reference r helen was not used to interpret this result as normal/abnormal . MPV (test code = 10.1 fL 9.8-13.0 28174-1) IPF % (test code = 4.1 % 1.2-10.7 Platelet count 0111449182) measured by fluorescence method. NRBC/100 WBC (test See_Comment [Automat ed code = 9018473781) message] The system which generated this result transmitted reference range : 0.0 - 10.0 /100 WBCs. The refer ence range was not u sed to interpret th is result as normal/abnormal . NRBC x10^3 (test code See_Comment [Auto mated = 6263859185) message] The s ystem which generated this result transmitted reference range : 10*3/?L. The reference range was not used to interpret this result as normal/abnormal . GRAN MAT (NEUT) % 77.2 % (test code = 770-8) IMM GRAN % (test code 0.30 % = 2745390296) LYMPH % (test code = 10.5 % 736-9) MONO % (test code = 11.4 % 5905-5) EOS % (test code = 0.3 % 713-8) BASO % (test code = 0.3 % 706-2) GRAN MAT x10^3(ANC) 5.64 10*3/uL 1.99-6.95 (test code = 2932701726) IMM GRAN x10^3 (test 0.00-0.06 code = 6135524754) LYMPH x10^3 (test code 0.77 10*3/uL 1.09-3.23 L = 731-0) MONO x10^3 (test code 0.83 10*3/uL 0.36-1.02 = 742-7) EOS x10^3 (test code = 0.06-0.53 L 711-2) BASO x10^3 (test code 0.01-0.09 = 704-7) BANDS (test code = Increased A 9023493508) Lab Interpretation Abnormal (test code = 92057-2) [facility] WITH [id number] 11:48:54 Test Item Value Reference Range Interpretation [...] RDW-SD (test code = 39.4 fL 38.5-51.6 62263-3) RDW-CV (test code = 13.0 % 12.1-15.4 788-0) PLT (test code = See_Comment L [Automated 777-3) message] The sy stem which generated this result transmitted reference range : 150 - 328 10*3/ ?L. The reference r helen was not used to interpret this result as normal/abnormal . MPV (test code = 10.1 fL 9.8-13.0 12383-8) IPF % (test code = 4.1 % 1.2-10.7 Platelet count 0698383668) measured by fluorescence method. NRBC/100 WBC (test See_Comment [Automat ed code = 2296708686) message] The system which generated this result transmitted reference range : 0.0 - 10.0 /100 WBCs. The refer ence range was not u sed to interpret th is result as normal/abnormal . NRBC x10^3 (test code See_Comment [Auto mated = 4513266816) message] The s ystem which generated this result transmitted reference range : 10*3/?L. The reference range was not used to interpret this result as normal/abnormal . GRAN MAT (NEUT) % 77.2 % (test code = 770-8) IMM GRAN % (test code 0.30 % = 2856520432) LYMPH % (test code = 10.5 % 736-9) MONO % (test code = 11.4 % 5905-5) EOS % (test code = 0.3 % 713-8) BASO % (test code = 0.3 % 706-2) GRAN MAT x10^3(ANC) 5.64 10*3/uL 1.99-6.95 (test code = 5773686163) IMM GRAN x10^3 (test 0.00-0.06 code = 6158339770) LYMPH x10^3 (test code 0.77 10*3/uL 1.09-3.23 L = 731-0) MONO x10^3 (test code 0.83 10*3/uL 0.36-1.02 = 742-7) EOS x10^3 (test code = 0.06-0.53 L 711-2) BASO x10^3 (test code 0.01-0.09 = 704-7) BANDS (test code = Increased A 2443163426) Lab Interpretation Abnormal (test code = 99512-0) [facility] Test Item Value Reference Range Interpretation Comments MAGNESIUM (test code = 1506670137) 1.8 mg/dL 1.7-2.4 Lab Interpretation (test code = Normal 02195-6) [facility] (ALB,T.PRO,BILI T,BU/BC,ALT,AST,ALK PHOS)2022-07-29 11:41:40 Test Item Value Reference Range Interpretation Comments TOTAL BILI (test code = 8704586778) 0.7 mg/dL 0.1-1.1 BILI UNCON (test code = 0192973776) 0.3 mg/dL 0.1-1.1 BILI CONJ (test code = 7977413280) 0.0 mg/dL 0.0-0.3 T PROTEIN (test code = 2759209984) 5.7 g/dL 6.3-8.2 L ALBUMIN (test code = 5490056390) 3.3 g/dL 3.5-5.0 L ALK PHOS (test code = 2062208037) 228 U/L 34-122 H ALTv (test code = 1742-6) 41 U/L 5-50 AST(SGOT) (test code = 9187780026) 39 U/L 13-40 Lab Interpretation (test code = Abnormal 00117-7) [facility] METABOLIC PANEL (NA, K, CL, CO2, GLUCOSE, BUN, CREATININE, CA)2022-07-29 11:41:40 Test Item Value Reference Range Interpretation Comments NA (test code = 132 mmol/L 135-145 L 7207146608) K (test code = 3.4 mmol/L 3.5-5.0 L 1226502692) CL (test code = 94 mmol/L 98-108 L 3109820744) CO2 TOTAL (test code = 30 mmol/L 23-31 7880756969) AGAP (test code = 2-16 5431409187) BUN (test code = 11 mg/dL 7-23 1790718575) GLUCOSE (test code = 95 mg/dL 70-110 0849224551) CREATININE (test code = 0.70 mg/dL 0.60-1.25 4832601254) CALCIUM (test code = 8.3 mg/dL 8.6-10.6 L 6968830828) eGFR (test code = mL/min/1.73m2 6035135003) JUAN DAVID (test code = JUAN DAVID) [...] tests). Lab Interpretation Abnormal (test code = 85093-2) [facility] Test Item Value Reference Range Interpretation Comments MAGNESIUM (test code = 0441028420) 1.8 mg/dL 1.7-2.4 Lab Interpretation (test code = Normal 06380-7) [facility]064[facility] (ALB,T.PRO,BILI T,BU/BC,ALT,AST,ALK PHOS)2022-07-29 11:41:40 Test Item Value Reference Range Interpretation Comments TOTAL BILI (test code = 1581553206) 0.7 mg/dL 0.1-1.1 BILI UNCON (test code = 1725971721) 0.3 mg/dL 0.1-1.1 BILI CONJ (test code = 7820205084) 0.0 mg/dL 0.0-0.3 T PROTEIN (test code = 5646036234) 5.7 g/dL 6.3-8.2 L ALBUMIN (test code = 1054308400) 3.3 g/dL 3.5-5.0 L ALK PHOS (test code = 0571613185) 228 U/L 34-122 H ALTv (test code = 1742-6) 41 U/L 5-50 AST(SGOT) (test code = 8279744137) 39 U/L 13-40 Lab Interpretation (test code = Abnormal 95061-8) [facility] Test Item Value Reference Range Interpretation Comments MAGNESIUM (test code = 5837156475) 1.8 mg/dL 1.7-2.4 Lab Interpretation (test code = Normal 94104-0) [facility]24[facility] (ALB,T.PRO,BILI T,BU/BC,ALT,AST,ALK PHOS)2022-07-29 11:41:40 Test Item Value Reference Range Interpretation Comments TOTAL BILI (test code = 9515942531) 0.7 mg/dL 0.1-1.1 BILI UNCON (test code = 7727459756) 0.3 mg/dL 0.1-1.1 BILI CONJ (test code = 4930053665) 0.0 mg/dL 0.0-0.3 T PROTEIN (test code = 6339720633) 5.7 g/dL 6.3-8.2 L ALBUMIN (test code = 8163664672) 3.3 g/dL 3.5-5.0 L ALK PHOS (test code = 4779219998) 228 U/L 34-122 H ALTv (test code = 1742-6) 41 U/L 5-50 AST(SGOT) (test code = 1945143743) 39 U/L 13-40 Lab Interpretation (test code = Abnormal 32509-3) [facility] 11:41:40 Test Item Value Reference Range Interpretation Comments MAGNESIUM (test code = 7714536977) 1.8 mg/dL 1.7-2.4 Lab Interpretation (test code = Normal 72391-2) [facility]27746[facility] (ALB,T.PRO,BILI T,BU/BC,ALT,AST,ALK PHOS)2022-07-29 11:41:40 Test Item Value Reference Range Interpretation Comments TOTAL BILI (test code = 3172136043) 0.7 mg/dL 0.1-1.1 BILI UNCON (test code = 6109656348) 0.3 mg/dL 0.1-1.1 BILI CONJ (test code = 8876734833) 0.0 mg/dL 0.0-0.3 T PROTEIN (test code = 8890735835) 5.7 g/dL 6.3-8.2 L ALBUMIN (test code = 8685447281) 3.3 g/dL 3.5-5.0 L ALK PHOS (test code = 2746645338) 228 U/L 34-122 H ALTv (test code = 1742-6) 41 U/L 5-50 AST(SGOT) (test code = 4936330569) 39 U/L 13-40 Lab Interpretation (test code = Abnormal 37045-6) [facility] METABOLIC PANEL (NA, K, CL, CO2, GLUCOSE, BUN, CREATININE, CA)2022-07-29 11:41:40 Test Item Value Reference Range Interpretation Comments NA (test code = 132 mmol/L 135-145 L 7898667314) K (test code = 3.4 mmol/L 3.5-5.0 L 7133238790) CL (test code = 94 mmol/L 98-108 L 6556897922) CO2 TOTAL (test code = 30 mmol/L 23-31 6731608439) AGAP (test code = 2-16 3846497499) BUN (test code = 11 mg/dL 7-23 8983561207) GLUCOSE (test code = 95 mg/dL 70-110 2480828259) CREATININE (test code = 0.70 mg/dL 0.60-1.25 1569000355) CALCIUM (test code = 8.3 mg/dL 8.6-10.6 L 1543376027) eGFR (test code = mL/min/1.73m2 9124420846) JUAN DAVID (test code = JUAN DAVID) [...] tests). Lab Interpretation Abnormal (test code = 32713-2) [facility] 11:41:40 Test Item Value Reference Range Interpretation Comments MAGNESIUM (test code = 9156454710) 1.8 mg/dL 1.7-2.4 Lab Interpretation (test code = Normal 31055-3) [facility] (30711[facility] (ALB,T.PRO,BILI T,BU/BC,ALT,AST,ALK PHOS)2022-07-29 11:41:40 Test Item Value Reference Range Interpretation Comments TOTAL BILI (test code = 8455450192) 0.7 mg/dL 0.1-1.1 BILI UNCON (test code = 3305151147) 0.3 mg/dL 0.1-1.1 BILI CONJ (test code = 1741235118) 0.0 mg/dL 0.0-0.3 T PROTEIN (test code = 3289615031) 5.7 g/dL 6.3-8.2 L ALBUMIN (test code = 4563535769) 3.3 g/dL 3.5-5.0 L ALK PHOS (test code = 0817321136) 228 U/L 34-122 H ALTv (test code = 1742-6) 41 U/L 5-50 AST(SGOT) (test code = 7082259722) 39 U/L 13-40 Lab Interpretation (test code = Abnormal 98297-7) [facility] (64899) (ALB,T.PRO,BILI T,BU/BC,ALT,AST,ALK PHOS)2022-07-29 11:41:40 Test Item Value Reference Range Interpretation Comments TOTAL BILI (test code = 2579767459) 0.7 mg/dL 0.1-1.1 BILI UNCON (test code = 4120817831) 0.3 mg/dL 0.1-1.1 BILI CONJ (test code = 6057648928) 0.0 mg/dL 0.0-0.3 T PROTEIN (test code = 3800801790) 5.7 g/dL 6.3-8.2 L ALBUMIN (test code = 8448380246) 3.3 g/dL 3.5-5.0 L ALK PHOS (test code = 1385383714) 228 U/L 34-122 H ALTv (test code = 1742-6) 41 U/L 5-50 AST(SGOT) (test code = 3971973449) 39 U/L 13-40 Lab Interpretation (test code = Abnormal 57600-4) [facility] 19:51:23 Test Item Value Reference Range Interpretation Comments LIPASE (test code = 3963803938) 562 U/L 0-220 H Lab Interpretation (test code = Abnormal 44901-7) [facility] 19:51:23 Test Item Value Reference Range Interpretation Comments LIPASE (test code = 2687205657) 562 U/L 0-220 H Lab Interpretation (test code = Abnormal 46041-6) [facility] 19:51:23 Test Item Value Reference Range Interpretation Comments LIPASE (test code = 3990519105) 562 U/L 0-220 H Lab Interpretation (test code = Abnormal 64034-2) [facility] 19:51:23 Test Item Value Reference Range Interpretation Comments LIPASE (test code = 5385968260) 562 U/L 0-220 H Lab Interpretation (test code = Abnormal 29043-1) [facility] 19:51:23 Test Item Value Reference Range Interpretation Comments LIPASE (test code = 8660652771) 562 U/L 0-220 H Lab Interpretation (test code = Abnormal 15650-5) [facility] 19:51:23 Test Item Value Reference Range Interpretation Comments LIPASE (test code = 4821382727) 562 U/L 0-220 H Lab Interpretation (test code = Abnormal 19572-5) [facility] with Xwvdxxwfneix0270-71-29 09:03:27 Test Item Value Reference Range Interpretation [...] RDW-SD (test code = 41.0 fL 38.5-51.6 29844-3) RDW-CV (test code = 13.2 % 12.1-15.4 788-0) PLT (test code = See_Comment L [Automated 777-3) message] The sy stem which generated this result transmitted reference range : 150 - 328 10*3/ ?L. The reference r helen was not used to interpret this result as normal/abnormal . MPV (test code = 10.7 fL 9.8-13.0 46104-9) IPF % (test code = 3.4 % 1.2-10.7 Platelet count 7754162940) measured by fluorescence method. NRBC/100 WBC (test See_Comment [Automat ed code = 4157954496) message] The system which generated this result transmitted reference range : 0.0 - 10.0 /100 WBCs. The refer ence range was not u sed to interpret th is result as normal/abnormal . NRBC x10^3 (test code See_Comment [Auto mated = 4136230570) message] The s ystem which generated this result transmitted reference range : 10*3/?L. The reference range was not used to interpret this result as normal/abnormal . GRAN MAT (NEUT) % 78.0 % (test code = 770-8) IMM GRAN % (test code 0.20 % = 8537385288) LYMPH % (test code = 12.7 % 736-9) MONO % (test code = 8.9 % 5905-5) EOS % (test code = 0.0 % 713-8) BASO % (test code = 0.2 % 706-2) GRAN MAT x10^3(ANC) 3.75 10*3/uL 1.99-6.95 (test code = 9836373942) IMM GRAN x10^3 (test 0.00-0.06 code = 5449451300) LYMPH x10^3 (test code 0.61 10*3/uL 1.09-3.23 L = 731-0) MONO x10^3 (test code 0.43 10*3/uL 0.36-1.02 = 742-7) EOS x10^3 (test code = 0.06-0.53 L 711-2) BASO x10^3 (test code 0.01-0.09 = 704-7) Lab Interpretation Abnormal (test code = 33388-1) [facility] (72700)(TOTAL CHOLESTEROL, TRIGLYCERIDES, HDL)2022-07-27 08:49:01 Test Item Value Reference Range Interpretation Comments CHOL (test code = 108 mg/dL 120-200 L 2162899563) HDL (test code = 33 mg/dL See_Comment L [Automated message] 0895710342) The system [employer] generated this result transmit loki reference range : >=40. The refer ence range was not u sed to interpret th is result as normal/abnormal . HDLC RATIO (test code = See_Comment [Au tomated message] 9535030129) The system [employer] generated this result transmit loki reference range : <=5.0. The refe rence range was not u sed to interpret th is result as normal/abnormal . TRIG (test code = 115 mg/dL 30-170 9140992203) LDL CHOL (test code = 52 mg/dL See_Comment [Auto mated message] 03434-9) The system [employer] generated this result transmit loki reference range : <=160. The refe rence range was not u sed to interpret th is result as normal/abnormal . VLDL (test code = 23 mg/dL 5-60 0883387704) Lab Interpretation (test Abnormal code = 10043-3) [facility] (24071)(TOTAL CHOLESTEROL, TRIGLYCERIDES, HDL)2022-07-27 08:49:01 Test Item Value Reference Range Interpretation Comments CHOL (test code = 108 mg/dL 120-200 L 5773698679) HDL (test code = 33 mg/dL See_Comment L [Automated message] 3999909979) The system [employer] generated this result transmit loki reference range : >=40. The refer ence range was not u sed to interpret th is result as normal/abnormal . HDLC RATIO (test code = See_Comment [Au tomated message] 5846072042) The system [employer] generated this result transmit loki reference range : <=5.0. The refe rence range was not u sed to interpret th is result as normal/abnormal . TRIG (test code = 115 mg/dL 30-170 7623755628) LDL CHOL (test code = 52 mg/dL See_Comment [Auto mated message] 60858-1) The system [employer] generated this result transmit loki reference range : <=160. The refe rence range was not u sed to interpret th is result as normal/abnormal . VLDL (test code = 23 mg/dL 5-60 1425493419) Lab Interpretation (test Abnormal code = 10722-2) [facility] (09870)(TOTAL CHOLESTEROL, TRIGLYCERIDES, HDL)2022-07-27 08:49:01 Test Item Value Reference Range Interpretation Comments CHOL (test code = 108 mg/dL 120-200 L 1201436931) HDL (test code = 33 mg/dL See_Comment L [Automated message] 0071039850) The system [employer] generated this result transmit loki reference range : >=40. The refer ence range was not u sed to interpret th is result as normal/abnormal . HDLC RATIO (test code = See_Comment [Au tomated message] 4201203330) The system [employer] generated this result transmit loki reference range : <=5.0. The refe rence range was not u sed to interpret th is result as normal/abnormal . TRIG (test code = 115 mg/dL 30-170 7426129115) LDL CHOL (test code = 52 mg/dL See_Comment [Auto mated message] 45200-0) The system [employer] generated this result transmit loki reference range : <=160. The refe rence range was not u sed to interpret th is result as normal/abnormal . VLDL (test code = 23 mg/dL 5-60 9511916467) Lab Interpretation (test Abnormal code = 68891-1) [facility] (91534)(TOTAL CHOLESTEROL, TRIGLYCERIDES, HDL)2022-07-27 08:49:01 Test Item Value Reference Range Interpretation Comments CHOL (test code = 108 mg/dL 120-200 L 0972790834) HDL (test code = 33 mg/dL See_Comment L [Automated message] 6101197655) The system [employer] generated this result transmit loki reference range : >=40. The refer ence range was not u sed to interpret th is result as normal/abnormal . HDLC RATIO (test code = See_Comment [Au tomated message] 1835656318) The system [employer] generated this result transmit loki reference range : <=5.0. The refe rence range was not u sed to interpret th is result as normal/abnormal . TRIG (test code = 115 mg/dL 30-170 6644266240) LDL CHOL (test code = 52 mg/dL See_Comment [Auto mated message] 95960-5) The system [employer] generated this result transmit loki reference range : <=160. The refe rence range was not u sed to interpret th is result as normal/abnormal . VLDL (test code = 23 mg/dL 5-60 4718517952) Lab Interpretation (test Abnormal code = 17598-8) [facility] (NA, K, CL, CO2, GLUCOSE, BUN, CREATININE, CA)2022-07-27 08:49:01 Test Item Value Reference Range Interpretation Comments NA (test code = 131 mmol/L 135-145 L 9790506272) K (test code = 3.5 mmol/L 3.5-5.0 5011795821) CL (test code = 99 mmol/L 98-108 5258048614) CO2 TOTAL (test code = 26 mmol/L 23-31 1510961483) AGAP (test code = 2-16 3069265083) BUN (test code = 12 mg/dL 7-23 2051897732) GLUCOSE (test code = 84 mg/dL 70-110 7970824606) CREATININE (test code = 0.71 mg/dL 0.60-1.25 4300347885) CALCIUM (test code = 8.2 mg/dL 8.6-10.6 L 6092987267) eGFR (test code = mL/min/1.73m2 5316169261) JUAN DAVID (test code = JUAN DAVID) [...] tests). Lab Interpretation Abnormal (test code = 25796-8) [facility]Magn[facility] [id number] 08:49:01 Test Item Value Reference Range Interpretation Comments MAGNESIUM (test code = 8734043330) 1.9 mg/dL 1.7-2.4 Lab Interpretation (test code = Normal 77060-6) [facility] (87793)(TOTAL CHOLESTEROL, TRIGLYCERIDES, HDL)2022-07-27 08:49:01 Test Item Value Reference Range Interpretation Comments CHOL (test code = 108 mg/dL 120-200 L 3817870760) HDL (test code = 33 mg/dL See_Comment L [Automated message] 2548363552) The system [employer] generated this result transmit loki reference range : >=40. The refer ence range was not u sed to interpret th is result as normal/abnormal . HDLC RATIO (test code = See_Comment [Au tomated message] 5731441378) The system [employer] generated this result transmit loki reference range : <=5.0. The refe rence range was not u sed to interpret th is result as normal/abnormal . TRIG (test code = 115 mg/dL 30-170 8488671911) LDL CHOL (test code = 52 mg/dL See_Comment [Auto mated message] 85742-4) The system [employer] generated this result transmit loki reference range : <=160. The refe rence range was not u sed to interpret th is result as normal/abnormal . VLDL (test code = 23 mg/dL 5-60 4398498287) Lab Interpretation (test Abnormal code = 46575-9) [facility] (31649)(TOTAL CHOLESTEROL, TRIGLYCERIDES, HDL)2022-07-27 08:49:01 Test Item Value Reference Range Interpretation Comments CHOL (test code = 108 mg/dL 120-200 L 0037564144) HDL (test code = 33 mg/dL See_Comment L [Automated message] 8345419663) The system [employer] generated this result transmit loki reference range : >=40. The refer ence range was not u sed to interpret th is result as normal/abnormal . HDLC RATIO (test code = See_Comment [Au tomated message] 0458601407) The system [employer] generated this result transmit loki reference range : <=5.0. The refe rence range was not u sed to interpret th is result as normal/abnormal . TRIG (test code = 115 mg/dL 30-170 3894006409) LDL CHOL (test code = 52 mg/dL See_Comment [Auto mated message] 36276-5) The system [employer] generated this result transmit loki reference range : <=160. The refe rence range was not u sed to interpret th is result as normal/abnormal . VLDL (test code = 23 mg/dL 5-60 3595044523) Lab Interpretation (test Abnormal code = 10920-0) [facility]UB, 1 VIEW [id number] 00:13:00 [facility] HAYWARDName: CARROL ANNE : 1960 Sex: MFINAL REPORT Patient Name: Carrol AnneDOB: 1960MRN: [id number]: Abdomen, single viewExam date/time: 06/08/2022 at 5:37 PMDowntime AN#:[id number] Examination was dictated during a downtime event. [...] Cindy Alcala MDReport Verified Date/Time: 07/15/2022 00:13:30 [id number] 23:08:54 Test Item Value Reference Range Interpretation Comments LIPASE (test code = 4734003035) 171 U/L 0-220 Lab Interpretation (test code = Normal 41543-1) [facility]. METABOLIC PANEL (70398)2022-07-09 23:08:53 Test Item Value Reference Range Interpretation Comments NA (test code = 136 mmol/L 135-145 7176702535) K (test code = 3.9 mmol/L 3.5-5.0 2804895476) CL (test code = 99 mmol/L 98-108 0526417128) CO2 TOTAL (test code = 26 mmol/L 23-31 7938052986) AGAP (test code = 2-16 0653112930) BUN (test code = 14 mg/dL 7-23 0580405133) GLUCOSE (test code = 112 mg/dL 70-110 H 9369166249) CREATININE (test code = 0.76 mg/dL 0.60-1.25 3666355372) TOTAL BILI (test code = 0.4 mg/dL 0.1-1.8 3747642729) CALCIUM (test code = 8.7 mg/dL 8.6-10.6 8510033206) T PROTEIN (test code = 6.3 g/dL 6.3-8.2 0905973673) ALBUMIN (test code = 3.6 g/dL 3.5-5.0 7127591361) ALK PHOS (test code = 233 U/L 34-122 H 5230352757) ALTv (test code = 37 U/L 5-50 1742-6) AST(SGOT) (test code = 32 U/L 13-40 3223954275) eGFR (test code = mL/min/1.73m2 7187093820) JUAN DAVID (test code = JUAN DAVID) [...] tests). Lab Interpretation Abnormal (test code = 83392-9) [facility]. MET[facility]OLIC PAN[facility] (53035)2022-07-09 23:08:53 Test Item Value Reference Range Interpretation Comments NA (test code = 136 mmol/L 135-145 8131871360) K (test code = 3.9 mmol/L 3.5-5.0 0904620702) CL (test code = 99 mmol/L 98-108 8427067166) CO2 TOTAL (test code = 26 mmol/L 23-31 4874280868) AGAP (test code = 2-16 8120231255) BUN (test code = 14 mg/dL 7-23 1172271191) GLUCOSE (test code = 112 mg/dL 70-110 H 2599985884) CREATININE (test code = 0.76 mg/dL 0.60-1.25 8907445475) TOTAL BILI (test code = 0.4 mg/dL 0.1-1.2 5694325038) CALCIUM (test code = 8.7 mg/dL 8.6-10.6 4255736753) T PROTEIN (test code = 6.3 g/dL 6.3-8.2 5700533672) ALBUMIN (test code = 3.6 g/dL 3.5-5.0 4462870199) ALK PHOS (test code = 233 U/L 34-122 H 0903959644) ALTv (test code = 37 U/L 5-50 1742-6) AST(SGOT) (test code = 32 U/L 13-40 5114280333) eGFR (test code = mL/min/1.73m2 7427335087) JUAN DAVID (test code = JUAN DAVID) [...] tests). Lab Interpretation Abnormal (test code = 59666-4) [facility]. METABOLIC PANEL (77716)2022-07-09 23:08:53 Test Item Value Reference Range Interpretation Comments NA (test code = 136 mmol/L 135-145 7934481946) K (test code = 3.9 mmol/L 3.5-5.0 5108758509) CL (test code = 99 mmol/L 98-108 8252412394) CO2 TOTAL (test code = 26 mmol/L 23-31 6090981597) AGAP (test code = 2-16 5537070535) BUN (test code = 14 mg/dL 7-23 6108307314) GLUCOSE (test code = 112 mg/dL 70-110 H 4383579802) CREATININE (test code = 0.76 mg/dL 0.60-1.25 9756038548) TOTAL BILI (test code = 0.4 mg/dL 0.1-1.2 4671592632) CALCIUM (test code = 8.7 mg/dL 8.6-10.6 0494739555) T PROTEIN (test code = 6.3 g/dL 6.3-8.2 0159151771) ALBUMIN (test code = 3.6 g/dL 3.5-5.0 6041738389) ALK PHOS (test code = 233 U/L 34-122 H 9284332944) ALTv (test code = 37 U/L 5-50 1742-6) AST(SGOT) (test code = 32 U/L 13-40 2146746593) eGFR (test code = mL/min/1.73m2 2894437871) JUAN DAVID (test code = JUAN DAVID) [...] tests). Lab Interpretation Abnormal (test code = 30880-1) [facility]. METABOLIC PANEL (93539)2022-07-09 23:08:53 Test Item Value Reference Range Interpretation Comments NA (test code = 136 mmol/L 135-145 0390586980) K (test code = 3.9 mmol/L 3.5-5.0 4546017462) CL (test code = 99 mmol/L 98-108 8522438250) CO2 TOTAL (test code = 26 mmol/L 23-31 6261518606) AGAP (test code = 2-16 7537810898) BUN (test code = 14 mg/dL 7-23 9515847405) GLUCOSE (test code = 112 mg/dL 70-110 H 8409795030) CREATININE (test code = 0.76 mg/dL 0.60-1.25 7665009250) TOTAL BILI (test code = 0.4 mg/dL 0.1-1.3 6211360419) CALCIUM (test code = 8.7 mg/dL 8.6-10.6 6526112866) T PROTEIN (test code = 6.3 g/dL 6.3-8.2 0927437639) ALBUMIN (test code = 3.6 g/dL 3.5-5.0 2215580650) ALK PHOS (test code = 233 U/L 34-122 H 0021797421) ALTv (test code = 37 U/L 5-50 1742-6) AST(SGOT) (test code = 32 U/L 13-40 1597617161) eGFR (test code = mL/min/1.73m2 2325010140) JUAN DAVID (test code = JUAN DAVID) [...] tests). Lab Interpretation Abnormal (test code = 72390-6) [facility]. METABOLIC PANEL (36627)2022-07-09 23:08:53 Test Item Value Reference Range Interpretation Comments NA (test code = 136 mmol/L 135-145 8188354546) K (test code = 3.9 mmol/L 3.5-5.0 1072776148) CL (test code = 99 mmol/L 98-108 3234841305) CO2 TOTAL (test code = 26 mmol/L 23-31 2369673939) AGAP (test code = 2-16 8617485465) BUN (test code = 14 mg/dL 7-23 7708465870) GLUCOSE (test code = 112 mg/dL 70-110 H 7906843458) CREATININE (test code = 0.76 mg/dL 0.60-1.25 9041634873) TOTAL BILI (test code = 0.4 mg/dL 0.1-1.7 8933656359) CALCIUM (test code = 8.7 mg/dL 8.6-10.6 6785396812) T PROTEIN (test code = 6.3 g/dL 6.3-8.2 0838806301) ALBUMIN (test code = 3.6 g/dL 3.5-5.0 8019486981) ALK PHOS (test code = 233 U/L 34-122 H 2458047009) ALTv (test code = 37 U/L 5-50 1742-6) AST(SGOT) (test code = 32 U/L 13-40 2217968800) eGFR (test code = mL/min/1.73m2 0091118647) JUAN DAVID (test code = JUAN DAVID) [...] tests). Lab Interpretation Abnormal (test code = 88170-0) [facility]. METABOLIC PANEL (56845)2022-07-09 23:08:53 Test Item Value Reference Range Interpretation Comments NA (test code = 136 mmol/L 135-145 4326031866) K (test code = 3.9 mmol/L 3.5-5.0 0547612493) CL (test code = 99 mmol/L 98-108 0085542389) CO2 TOTAL (test code = 26 mmol/L 23-31 1744658321) AGAP (test code = 2-16 4715488553) BUN (test code = 14 mg/dL 7-23 8406412550) GLUCOSE (test code = 112 mg/dL 70-110 H 7979378514) CREATININE (test code = 0.76 mg/dL 0.60-1.25 4434355089) TOTAL BILI (test code = 0.4 mg/dL 0.1-1.1 8274965402) CALCIUM (test code = 8.7 mg/dL 8.6-10.6 4642222518) T PROTEIN (test code = 6.3 g/dL 6.3-8.2 5386798409) ALBUMIN (test code = 3.6 g/dL 3.5-5.0 9864803163) ALK PHOS (test code = 233 U/L 34-122 H 2394882755) ALTv (test code = 37 U/L 5-50 1742-6) AST(SGOT) (test code = 32 U/L 13-40 9575587876) eGFR (test code = mL/min/1.73m2 1336189914) JUAN DAVID (test code = JUAN DAVID) [...] tests). Lab Interpretation Abnormal (test code = 08988-2) [facility], NON [id number] 23:20:00[facility] HAYWARDName: CARROL ANNE : 1960 Sex: MFINAL REPORT Patient Name: Carrol MelendezRN: [id number]: 1960 CLINICAL HISTORY: Pain TECHNIQUE: 1 view of the chest COMPARISON: None IMPRESSION: There are no focal infiltrates or pleural effusions. The cardiomediastinal silhouette is within normal limits for size. The visualized bones are intact. Tubing projects in the upper abdomen. Signed: Chapito Zayas MDReport Verified Date/Time: 07/06/2022 23:20:47 Reading Location: [address] Reading Room TROPONIN [id number] 14:21:46 Test Item Value Reference Interpretation Comments Range TROPONIN I (test 0.003 ng/mL See_Comment [Automated code = 2822451070) message] The system which generated this result [...] biotin. Lab Interpretation Normal (test code = 82839-2) [facility] [id number] 14:21:46 Test Item Value Reference Range Interpretation Comments NT-proBNP (test code 128 pg/mL See_Comment H [Autom ated = 3692370556) message] The system which generated this result transmitted reference range : <=125. The reference range was not used to interpret this result as normal/abnormal . JUAN DAVID (test code = JUAN DAVID) Biotin has been reported to cause a negative bias, interpret results relative to patient's use of biotin. Lab Interpretation Abnormal (test code = 11041-8) [facility] [id number] 14:21:46 Test Item Value Reference Interpretation Comments Range TROPONIN I (test 0.003 ng/mL See_Comment [Automated code = 7499972588) message] The system which generated this result [...] biotin. Lab Interpretation Normal (test code = 26292-2) [id number] 14:21:46 Test Item Value Reference Range Interpretation Comments NT-proBNP (test code 128 pg/mL See_Comment H [Autom ated = [id number]) message] The system which generated this result transmitted reference range : <=125. The reference range was not used to interpret this result as normal/abnormal . JUAN DAVID (test code = JUAN DAVID) Biotin has been reported to cause a negative bias, interpret results relative to patient's use of biotin. Lab Interpretation Abnormal (test code = 96899-2) [facility] [id number] 14:21:46 Test Item Value Reference Interpretation Comments Range TROPONIN I (test 0.003 ng/mL See_Comment [Automated code = [id number]) message] The system which generated this result [...] biotin. Lab Interpretation Normal (test code = 50310-8) [id number] 14:21:46 Test Item Value Reference Range Interpretation Comments NT-proBNP (test code 128 pg/mL See_Comment H [Autom ated = [id number]) message] The system which generated this result transmitted reference range : <=125. The reference range was not used to interpret this result as normal/abnormal . JUAN DAVID (test code = JUAN DAVID) Biotin has been reported to cause a negative bias, interpret results relative to patient's use of biotin. Lab Interpretation Abnormal (test code = 31686-0) [facility] [id number] 14:21:46 Test Item Value Reference Interpretation Comments Range TROPONIN I (test 0.003 ng/mL See_Comment [Automated code = 5735154640) message] The system which generated this result [...] biotin. Lab Interpretation Normal (test code = 58645-1) [id number] 14:21:46 Test Item Value Reference Range Interpretation Comments NT-proBNP (test code 128 pg/mL See_Comment H [Autom ated = 5766337263) message] The system which generated this result transmitted reference range : <=125. The reference range was not used to interpret this result as normal/abnormal . JUAN DAVID (test code = JUAN DAVID) Biotin has been reported to cause a negative bias, interpret results relative to patient's use of biotin. Lab Interpretation Abnormal (test code = 51514-6) [facility] [id number] 14:21:46 Test Item Value Reference Interpretation Comments Range TROPONIN I (test 0.003 ng/mL See_Comment [Automated code = 2201973381) message] The system which generated this result [...] biotin. Lab Interpretation Normal (test code = 00183-6) [facility] [id number] 14:21:46 Test Item Value Reference Range Interpretation Comments NT-proBNP (test code 128 pg/mL See_Comment H [Autom ated = 1458510276) message] The system which generated this result transmitted reference range : <=125. The reference range was not used to interpret this result as normal/abnormal . JUAN DAVID (test code = JUAN DAVID) Biotin has been reported to cause a negative bias, interpret results relative to patient's use of biotin. Lab Interpretation Abnormal (test code = 11079-9) [facility] [id number] 14:21:46 Test Item Value Reference Interpretation Comments Range TROPONIN I (test 0.003 ng/mL See_Comment [Automated code = 2815155443) message] The system which generated this result [...] biotin. Lab Interpretation Normal (test code = 83514-5) [facility] [id number] 14:21:46 Test Item Value Reference Range Interpretation Comments NT-proBNP (test code 128 pg/mL See_Comment H [Autom ated = 6838941606) message] The system which generated this result transmitted reference range : <=125. The reference range was not used to interpret this result as normal/abnormal . JUAN DAVID (test code = JUAN DAVID) Biotin has been reported to cause a negative bias, interpret results relative to patient's use of biotin. Lab Interpretation Abnormal (test code = 71030-3) [facility] [id number] 14:21:46 Test Item Value Reference Interpretation Comments Range TROPONIN I (test 0.003 ng/mL See_Comment [Automated code = 8953150981) message] The system which generated this result [...] biotin. Lab Interpretation Normal (test code = 26455-6) [facility] [id number] 14:21:46 Test Item Value Reference Range Interpretation Comments NT-proBNP (test code 128 pg/mL See_Comment H [Autom ated = 1674490161) message] The system which generated this result transmitted reference range : <=125. The reference range was not used to interpret this result as normal/abnormal . JUAN DAVID (test code = JUAN DAVID) Biotin has been reported to cause a negative bias, interpret results relative to patient's use of biotin. Lab Interpretation Abnormal (test code = 56744-7) [facility] [id number] 14:21:46 Test Item Value Reference Interpretation Comments Range TROPONIN I (test 0.003 ng/mL See_Comment [Automated code = 9069112317) message] The system which generated this result [...] biotin. Lab Interpretation Normal (test code = 54745-1) [facility] [id number] 14:21:46 Test Item Value Reference Range Interpretation Comments NT-proBNP (test code 128 pg/mL See_Comment H [Autom ated = 8167818928) message] The system which generated this result transmitted reference range : <=125. The reference range was not used to interpret this result as normal/abnormal . JUAN DAVID (test code = JUAN DAVID) Biotin has been reported to cause a negative bias, interpret results relative to patient's use of biotin. Lab Interpretation Abnormal (test code = 83391-1) [facility] 12:14:22 Test Item Value Reference Range Interpretation Comments MAGNESIUM (test code = 7050289258) 1.8 mg/dL 1.7-2.4 Lab Interpretation (test code = Normal 84470-4) [facility] (NA, K, CL, CO2, GLUCOSE, BUN, CREATININE, CA)2022-06-26 12:14:22 Test Item Value Reference Range Interpretation Comments NA (test code = 134 mmol/L 135-145 L 9622435484) K (test code = 3.9 mmol/L 3.5-5 5267600533) CL (test code = 101 mmol/L 98-108 5575592839) CO2 TOTAL (test code = 27 mmol/L 23-31 5862726259) AGAP (test code = 2-16 9767451630) BUN (test code = 7 mg/dL 7-23 6601197194) GLUCOSE (test code = 108 mg/dL 70-110 5419936467) CREATININE (test code = 0.74 mg/dL 0.6-1.25 1984277234) CALCIUM (test code = 8.4 mg/dL 8.6-10.6 L 3023567064) eGFR (test code = mL/min/1.73m2 7598693249) JUAN DAVID (test code = JUAN DAVID) [...] tests). Lab Interpretation Abnormal (test code = 89013-1) [facility] METABOLIC PANEL (NA, K, CL, CO2, GLUCOSE, BUN, CREATININE, CA)2022-06-26 12:14:22 Test Item Value Reference Range Interpretation Comments NA (test code = 134 mmol/L 135-145 L 8898487760) K (test code = 3.9 mmol/L 3.5-5 6729112157) CL (test code = 101 mmol/L 98-108 7723569950) CO2 TOTAL (test code = 27 mmol/L 23-31 6978730473) AGAP (test code = 2-16 7917122260) BUN (test code = 7 mg/dL 7-23 6875428970) GLUCOSE (test code = 108 mg/dL 70-110 4685876675) CREATININE (test code = 0.74 mg/dL 0.6-1.25 8939814471) CALCIUM (test code = 8.4 mg/dL 8.6-10.6 L 6024449092) eGFR (test code = mL/min/1.73m2 4379850159) JUAN DAVID (test code = JUAN DAVID) [...] tests). Lab Interpretation Abnormal (test code = 59860-1) [facility] Test Item Value Reference Range Interpretation Comments MAGNESIUM (test code = 3364144942) 1.8 mg/dL 1.7-2.4 Lab Interpretation (test code = Normal 21006-5) [facility]-[id number] 12:02:19 Test Item Value Reference Interpretation Comments Range D-DIMER (test code = See_Comment H [Autom ated 0755293739) message] The system which generated this result [...] diagnosis. Lab Interpretation Abnormal (test code = 45116-7) [facility]-[id number] 12:02:19 Test Item Value Reference Interpretation Comments Range D-DIMER (test code = See_Comment H [Autom ated 3841068008) message] The system which generated this result [...] diagnosis. Lab Interpretation Abnormal (test code = 34457-8) [facility]-[id number] 12:02:19 Test Item Value Reference Interpretation Comments Range D-DIMER (test code = See_Comment H [Autom ated 6159905447) message] The system which generated this result [...] diagnosis. Lab Interpretation Abnormal (test code = 19590-2) [facility]-PFTTQ6767-10-56 12:02:19 Test Item Value Reference Interpretation Comments Range D-DIMER (test code = See_Comment H [Autom ated 2343375673) message] The system which generated this result [...] diagnosis. Lab Interpretation Abnormal (test code = 58556-6) [facility]-[id number] 12:02:19 Test Item Value Reference Interpretation Comments Range D-DIMER (test code = See_Comment H [Autom ated 8877385289) message] The system which generated this result [...] diagnosis. Lab Interpretation Abnormal (test code = 24610-5) [facility]-[id number] 12:02:19 Test Item Value Reference Interpretation Comments Range D-DIMER (test code = See_Comment H [Autom ated 1132121882) message] The system which generated this result [...] diagnosis. Lab Interpretation Abnormal (test code = 41851-4) [facility]-[id number] 12:02:19 Test Item Value Reference Interpretation Comments Range D-DIMER (test code = See_Comment H [Autom ated 0625981331) message] The system which generated this result [...] diagnosis. Lab Interpretation Abnormal (test code = 59018-2) [facility]-[id number] 12:02:19 Test Item Value Reference Interpretation Comments Range D-DIMER (test code = See_Comment H [Autom ated 1954255279) message] The system which generated this result [...] diagnosis. Lab Interpretation Abnormal (test code = 53893-1) [facility] WITH [id number] 11:51:18 Test Item Value Reference Range Interpretation [...] RDW-SD (test code = 42.1 fL 38.5-51.6 96032-6) RDW-CV (test code = 13.3 % 12.1-15.4 788-0) PLT (test code = See_Comment L [Automated 777-3) message] The sy stem which generated this result transmitted reference range : 150 - 328 10*3/ ?L. The reference r helen was not used to interpret this result as normal/abnormal . MPV (test code = 10.5 fL 9.8-13 46396-6) NRBC/100 WBC (test See_Comment [Automat ed code = 8131374969) message] The system which generated this result transmitted reference range : 0.0 - 10.0 /100 WBCs. The refer ence range was not u sed to interpret th is result as normal/abnormal . NRBC x10^3 (test code See_Comment [Auto mated = 2662637850) message] The s ystem which generated this result transmitted reference range : 10*3/?L. The reference range was not used to interpret this result as normal/abnormal . GRAN MAT (NEUT) % 74.2 % (test code = 770-8) IMM GRAN % (test code 0.90 % = 2091414143) LYMPH % (test code = 14.4 % 736-9) MONO % (test code = 9.7 % 5905-5) EOS % (test code = 0.4 % 713-8) BASO % (test code = 0.4 % 706-2) GRAN MAT x10^3(ANC) 4.07 10*3/uL 1.99-6.95 (test code = 4544584189) IMM GRAN x10^3 (test 0.05 10*3/uL 0-0.06 code = 6343029550) LYMPH x10^3 (test code 0.79 10*3/uL 1.09-3.23 L = 731-0) MONO x10^3 (test code 0.53 10*3/uL 0.36-1.02 = 742-7) EOS x10^3 (test code = 0.06-0.53 L 711-2) BASO x10^3 (test code 0.01-0.09 = 704-7) Lab Interpretation Abnormal (test code = 67391-0) [facility] WITH [id number] 11:51:18 Test Item Value Reference Range Interpretation [...] RDW-SD (test code = 42.1 fL 38.5-51.6 76363-4) RDW-CV (test code = 13.3 % 12.1-15.4 788-0) PLT (test code = See_Comment L [Automated 777-3) message] The sy stem which generated this result transmitted reference range : 150 - 328 10*3/ ?L. The reference r helen was not used to interpret this result as normal/abnormal . MPV (test code = 10.5 fL 9.8-13 26825-8) NRBC/100 WBC (test See_Comment [Automat ed code = 3730768005) message] The system which generated this result transmitted reference range : 0.0 - 10.0 /100 WBCs. The refer ence range was not u sed to interpret th is result as normal/abnormal . NRBC x10^3 (test code See_Comment [Auto mated = 3419148276) message] The s ystem which generated this result transmitted reference range : 10*3/?L. The reference range was not used to interpret this result as normal/abnormal . GRAN MAT (NEUT) % 74.2 % (test code = 770-8) IMM GRAN % (test code 0.90 % = 4960553386) LYMPH % (test code = 14.4 % 736-9) MONO % (test code = 9.7 % 5905-5) EOS % (test code = 0.4 % 713-8) BASO % (test code = 0.4 % 706-2) GRAN MAT x10^3(ANC) 4.07 10*3/uL 1.99-6.95 (test code = 1152969909) IMM GRAN x10^3 (test 0.05 10*3/uL 0-0.06 code = 0890767632) LYMPH x10^3 (test code 0.79 10*3/uL 1.09-3.23 L = 731-0) MONO x10^3 (test code 0.53 10*3/uL 0.36-1.02 = 742-7) EOS x10^3 (test code = 0.06-0.53 L 711-2) BASO x10^3 (test code 0.01-0.09 = 704-7) Lab Interpretation Abnormal (test code = 79163-9) [facility] (ALB,T.PRO,BILI T,BU/BC,ALT,AST,ALK PHOS)2022-06-25 23:34:17 Test Item Value Reference Range Interpretation Comments TOTAL BILI (test code = 8295007172) 0.5 mg/dL 0.1-1.1 BILI UNCON (test code = 1135086238) 0.2 mg/dL 0.1-1.1 BILI CONJ (test code = 4425810043) 0.0 mg/dL 0-0.3 T PROTEIN (test code = 8752961114) 5.9 g/dL 6.3-8.2 L ALBUMIN (test code = 2680995897) 3.3 g/dL 3.5-5 L ALK PHOS (test code = 3216249574) 256 U/L 34-122 H ALTv (test code = 1742-6) 168 U/L 5-50 H AST(SGOT) (test code = 1072821559) 151 U/L 13-40 H Lab Interpretation (test code = Abnormal 42746-3) [facility] (74395[facility] (ALB,T.PRO,BILI T,BU/BC,ALT,AST,ALK PHOS)2022-06-25 23:34:17 Test Item Value Reference Range Interpretation Comments TOTAL BILI (test code = 4726333093) 0.5 mg/dL 0.1-1.1 BILI UNCON (test code = 9514180244) 0.2 mg/dL 0.1-1.1 BILI CONJ (test code = 7859214929) 0.0 mg/dL 0-0.3 T PROTEIN (test code = 9417971957) 5.9 g/dL 6.3-8.2 L ALBUMIN (test code = 9979662490) 3.3 g/dL 3.5-5 L ALK PHOS (test code = 0310318821) 256 U/L 34-122 H ALTv (test code = 1742-6) 168 U/L 5-50 H AST(SGOT) (test code = 2133587669) 151 U/L 13-40 H Lab Interpretation (test code = Abnormal 18858-5) [facility]66835[facility] (ALB,T.PRO,BILI T,BU/BC,ALT,AST,ALK PHOS)2022-06-25 23:34:17 Test Item Value Reference Range Interpretation Comments TOTAL BILI (test code = 7142106501) 0.5 mg/dL 0.1-1.1 BILI UNCON (test code = 6789638623) 0.2 mg/dL 0.1-1.1 BILI CONJ (test code = 6672297339) 0.0 mg/dL 0-0.3 T PROTEIN (test code = 2499339730) 5.9 g/dL 6.3-8.2 L ALBUMIN (test code = 0583590107) 3.3 g/dL 3.5-5 L ALK PHOS (test code = 9853636612) 256 U/L 34-122 H ALTv (test code = 1742-6) 168 U/L 5-50 H AST(SGOT) (test code = 3878782182) 151 U/L 13-40 H Lab Interpretation (test code = Abnormal 27759-6) [facility] GLUCOSE (AUTOMATED)2022-06-25 20:16:06 Test Item Value Reference Range Interpretation Comments POCT GLU (test code = 8090986115) 110 mg/dL 70-110 Lab Interpretation (test code = Normal 49495-3) [facility] GLUCOSE (AUTOMATED)2022-06-25 20:16:06 Test Item Value Reference Range Interpretation Comments POCT GLU (test code = 1164774055) 110 mg/dL 70-110 Lab Interpretation (test code = Normal 76877-0) [facility] GLUCOSE (AUTOMATED)2022-06-25 20:16:06 Test Item Value Reference Range Interpretation Comments POCT GLU (test code = 2873264054) 110 mg/dL 70-110 Lab Interpretation (test code = Normal 62996-7) [facility] GLUCOSE (AUTOMATED)2022-06-25 20:16:06 Test Item Value Reference Range Interpretation Comments POCT GLU (test code = 0128517645) 110 mg/dL 70-110 Lab Interpretation (test code = Normal 94838-9) [facility] GLUCOSE (AUTOMATED)2022-06-25 20:16:06 Test Item Value Reference Range Interpretation Comments POCT GLU (test code = 2688381062) 110 mg/dL 70-110 Lab Interpretation (test code = Normal 10915-2) [facility] GLUCOSE (AUTOMATED)2022-06-25 20:16:06 Test Item Value Reference Range Interpretation Comments POCT GLU (test code = 1758228434) 110 mg/dL 70-110 Lab Interpretation (test code = Normal 78802-5) [facility] GLUCOSE (AUTOMATED)2022-06-25 20:16:06 Test Item Value Reference Range Interpretation Comments POCT GLU (test code = 4109717968) 110 mg/dL 70-110 Lab Interpretation (test code = Normal 14146-6) [facility] GLUCOSE (AUTOMATED)2022-06-25 20:16:06 Test Item Value Reference Range Interpretation Comments POCT GLU (test code = 0731350710) 110 mg/dL 70-110 Lab Interpretation (test code = Normal 95780-6) [facility] / [id number] 07:29:57 Test Item Value Reference Range Interpretation Comments PROTIME PATIENT (test See_Comment [Auto mated message] code = 5964-2) The system [employer] generated this result transmitted ref erence range: 10.1 - 1 2.6 Seconds. The re ference range was not u sed to interpret this result as normal/abnor mal. INR (test code = 6301-6) Nor mal INR <1.1; Warfarin Therap eutic range 2.0 to 3. 0 or 2.5 to 3.5, dep ending upon the indica tions. Lab Interpretation (test Normal code = 61692-8) [facility] / [id number] 07:29:57 Test Item Value Reference Range Interpretation Comments PROTIME PATIENT (test See_Comment [Auto mated message] code = 5964-2) The system [employer] generated this result transmitted ref erence range: 10.1 - 1 2.6 Seconds. The re ference range was not u sed to interpret this result as normal/abnor mal. INR (test code = 6301-6) Nor mal INR <1.1; Warfarin Therap eutic range 2.0 to 3. 0 or 2.5 to 3.5, dep ending upon the indica tions. Lab Interpretation (test Normal code = 20230-3) [facility]. METABOLIC PANEL (79547)2022-06-20 07:17:55 Test Item Value Reference Range Interpretation Comments NA (test code = 135 mmol/L 135-145 6759781922) K (test code = 4.4 mmol/L 3.5-5 0786701262) CL (test code = 99 mmol/L 98-108 9906525450) CO2 TOTAL (test code = 25 mmol/L 23-31 5887402350) AGAP (test code = 2-16 8857593133) BUN (test code = 13 mg/dL 7-23 4808860167) GLUCOSE (test code = 76 mg/dL 70-110 9318836794) CREATININE (test code = 0.79 mg/dL 0.6-1.25 8592135014) TOTAL BILI (test code = 0.3 mg/dL 0.1-1.8 5761129474) CALCIUM (test code = 8.5 mg/dL 8.6-10.6 L 0746415541) T PROTEIN (test code = 6.0 g/dL 6.3-8.2 L 9538117254) ALBUMIN (test code = 3.4 g/dL 3.5-5 L 8188055719) ALK PHOS (test code = 253 U/L 34-122 H 0736296717) ALTv (test code = 62 U/L 5-50 H 1742-6) AST(SGOT) (test code = 33 U/L 13-40 9364107607) eGFR (test code = mL/min/1.73m2 6067589753) JUAN DAVID (test code = JUAN DAVID) [...] tests). Lab Interpretation Abnormal (test code = 09048-7) [facility]. METABOLIC PANEL (59776)2022-06-20 07:17:55 Test Item Value Reference Range Interpretation Comments NA (test code = 135 mmol/L 135-145 8976811686) K (test code = 4.4 mmol/L 3.5-5 5817157180) CL (test code = 99 mmol/L 98-108 2159154362) CO2 TOTAL (test code = 25 mmol/L 23-31 2939933779) AGAP (test code = 2-16 6884582174) BUN (test code = 13 mg/dL 7-23 3520700532) GLUCOSE (test code = 76 mg/dL 70-110 1868944266) CREATININE (test code = 0.79 mg/dL 0.6-1.25 4173623478) TOTAL BILI (test code = 0.3 mg/dL 0.1-1.9 6732359704) CALCIUM (test code = 8.5 mg/dL 8.6-10.6 L 9126037381) T PROTEIN (test code = 6.0 g/dL 6.3-8.2 L 5339883125) ALBUMIN (test code = 3.4 g/dL 3.5-5 L 4494485783) ALK PHOS (test code = 253 U/L 34-122 H 6601097838) ALTv (test code = 62 U/L 5-50 H 1742-6) AST(SGOT) (test code = 33 U/L 13-40 7782101338) eGFR (test code = mL/min/1.73m2 3418233780) JUAN DAVID (test code = JUAN DAVID) [...] tests). Lab Interpretation Abnormal (test code = 72082-5) [facility] WITH [id number] 06:57:57 Test Item Value Reference Range Interpretation [...] RDW-SD (test code = 38.6 fL 38.5-51.6 29296-7) RDW-CV (test code = 12.3 % 12.1-15.4 788-0) PLT (test code = See_Comment [Automated 777-3) message] The sy stem which generated this result transmitted reference range : 150 - 328 10*3/ ?L. The reference r helen was not used to interpret this result as normal/abnormal . MPV (test code = 10.1 fL 9.8-13 24999-2) NRBC/100 WBC (test See_Comment [Automat ed code = 8772041403) message] The system which generated this result transmitted reference range : 0.0 - 10.0 /100 WBCs. The refer ence range was not u sed to interpret th is result as normal/abnormal . NRBC x10^3 (test code See_Comment [Auto mated = 6715482338) message] The s ystem which generated this result transmitted reference range : 10*3/?L. The reference range was not used to interpret this result as normal/abnormal . GRAN MAT (NEUT) % 53.0 % (test code = 770-8) IMM GRAN % (test code 1.10 % = 3988892112) LYMPH % (test code = 31.8 % 736-9) MONO % (test code = 13.1 % 5905-5) EOS % (test code = 0.6 % 713-8) BASO % (test code = 0.4 % 706-2) GRAN MAT x10^3(ANC) 2.46 10*3/uL 1.99-6.95 (test code = 4238970328) IMM GRAN x10^3 (test 0.05 10*3/uL 0-0.06 code = 8384676025) LYMPH x10^3 (test code 1.48 10*3/uL 1.09-3.23 = 731-0) MONO x10^3 (test code 0.61 10*3/uL 0.36-1.02 = 742-7) EOS x10^3 (test code = 0.03 10*3/uL 0.06-0.53 L 711-2) BASO x10^3 (test code 0.01-0.09 = 704-7) Lab Interpretation Abnormal (test code = 18615-7) [facility] WITH [id number] 06:57:57 Test Item Value Reference Range Interpretation Comments WBC (test code = See_Comment [Automated 9390-2) message] The sy stem which generated this result transmitted reference range : 4.20 - 10.70 10*3/?L. The reference range was not used to interpret this result as normal/abnormal . RBC (test code = See_Comment L [Automated 309-8) message] The sy stem which generated this [...] RDW-SD (test code = 38.6 fL 38.5-51.6 48426-9) RDW-CV (test code = 12.3 % 12.1-15.4 788-0) PLT (test code = See_Comment [Automated 117-3) message] The sy stem which generated this result transmitted reference range : 150 - 328 10*3/ ?L. The reference r helen was not used to interpret this result as normal/abnormal . MPV (test code = 10.1 fL 9.8-13 76789-9) NRBC/100 WBC (test See_Comment [Automat ed code = 9482145445) message] The system which generated this result transmitted reference range : 0.0 - 10.0 /100 WBCs. The refer ence range was not u sed to interpret th is result as normal/abnormal . NRBC x10^3 (test code See_Comment [Auto mated = 0633007624) message] The s ystem which generated this result transmitted reference range : 10*3/?L. The reference range was not used to interpret this result as normal/abnormal . GRAN MAT (NEUT) % 53.0 % (test code = 770-8) IMM GRAN % (test code 1.10 % = 2241647830) LYMPH % (test code = 31.8 % 736-9) MONO % (test code = 13.1 % 5905-5) EOS % (test code = 0.6 % 713-8) BASO % (test code = 0.4 % 706-2) GRAN MAT x10^3(ANC) 2.46 10*3/uL 1.99-6.95 (test code = 4881313641) IMM GRAN x10^3 (test 0.05 10*3/uL 0-0.06 code = 0489847362) LYMPH x10^3 (test code 1.48 10*3/uL 1.09-3.23 = 731-0) MONO x10^3 (test code 0.61 10*3/uL 0.36-1.02 = 742-7) EOS x10^3 (test code = 0.03 10*3/uL 0.06-0.53 L 711-2) BASO x10^3 (test code 0.01-0.09 = 704-7) Lab Interpretation Abnormal (test code = 26934-5) [facility] [id number] 21:25:38 Test Item Value Reference Range Interpretation Comments LACTIC ACID (test code = 0.77 mmol/L 0.5-2.2 8047580223) Lab Interpretation (test code = Normal 18560-2) [facility] [id number] 21:25:38 Test Item Value Reference Range Interpretation Comments LACTIC ACID (test code = 0.77 mmol/L 0.5-2.2 4253699599) Lab Interpretation (test code = Normal 16648-1) [facility] Acid Whole [id number] 21:25:38 Test Item Value Reference Range Interpretation Comments LACTIC ACID (test code = 0.77 mmol/L 0.5-2.2 3712431773) Lab Interpretation (test code = Normal 00900-3) [facility] Acid Whole [id number] 21:25:38 Test Item Value Reference Range Interpretation Comments LACTIC ACID (test code = 0.77 mmol/L 0.5-2.2 7645455128) Lab Interpretation (test code = Normal 71159-5) [facility] Acid Whole [id number] 21:25:38 Test Item Value Reference Range Interpretation Comments LACTIC ACID (test code = 0.77 mmol/L 0.50-2.20 4757982233) Lab Interpretation (test code = Normal 39985-8) [facility] fluid culture + gram [id number] 20:31:19 Test Item Value Reference Range Interpretation Comments Result (test code = 6463-4) No growth Gram Stain Result (test No organisms seen code = 1123) [facility] fluid culture + gram [id number] 20:31:19 Test Item Value Reference Range Interpretation Comments Result (test code = 6463-4) No growth Gram Stain Result (test No organisms seen code = 1123) [facility] [id number] 20:31:19 Test Item Value Reference Range Interpretation Comments Result (test code = 6463-4) No growth Gram Stain Result (test No organisms seen code = 1123) [facility] fluid culture + gram [id number] 20:31:19 Test Item Value Reference Range Interpretation Comments Result (test code = 6463-4) No growth Gram Stain Result (test No organisms seen code = 1123) [facility] + gram [id number] 20:31:19 Test Item Value Reference Range Interpretation Comments Result (test code = 6463-4) No growth Gram Stain Result (test No organisms seen code = 1123) [facility]AM [id number] 20:31:19 Test Item Value Reference Range Interpretation Comments CULTURE (BEAKER) (test code No growth = 1095) GRAM STAIN RESULT (BEAKER) <1+ WBCs (test code = 1123) GRAM STAIN RESULT (BEAKER) No organisms seen (test code = 00615) COMPREHENSIVE METABOLIC [id number] 05:27:55 Test Item Value Reference Range Interpretation [...] not appl icable for dialysis patien ts Sample Tailor ID - MERRY MCBC W/PLT COUNT & AUTO [id number] 05:18:09 Test Item Value Reference Range Interpretation [...] (BEAKER) (test code = 2801) ANG, ABSCESS [id number] 08:52:00Reason for exam:->bilioma drainage [facility] : 1960 Sex: MFINAL REPORT [...] the patient's medical record by the nurse. Police Lieutenant:Robel Elizalde MD. Sink Maker: Theresa Doe MD (Fellow) Approach: Upper abdomen, [...] The tract was dilated and a 8.5 Palauan drainage catheter advanced over with pigtail formed [...] collection drainage with placement of a 8.5 Palauan pigtail drainage catheter as detailed above. Signed: [...] not appl icable for dialysis patien ts Sample Tailor ID - PIAYA LCBC W/PLT COUNT & AUTO [id number] 04:05:39 Test Item Value Reference Range Interpretation [...] PERCENT (BEAKER) (test code = 2801) PROTHROMBIN [id number] 06:26:26 Test Item Value Reference Range Interpretation Comments PROTIME (BEAKER) 15.1 seconds 11.9-14.2 H (test code = 759) INR (BEAKER) (test 1.26 See_Comment [Automat ed message] code = 370) The system [employer] generated this result transmitted ref erence range: [...] not appl icable for dialysis patien ts Sample Tailor ID - YOU WCBC W/PLT COUNT & AUTO [id number] 05:34:36 Test Item Value Reference Range Interpretation [...] SARS-Co V-2 (test code = target nucleic 84648-0) acids are not detected in thi s [...] revoked sooner. Fact Sheet for Healthcare Providers: https://www.[employer]/Documents/Xp ert%20Xpress%20SAR S%20CoV-2/Fact%20S heets/625-6492%20S ARS-COV-2%20HEALTH CARE%20PROVIDERS%2 0FACT%20SHEET.pdf Fact Sheet for Healthcare Patients: https://www.[employer]/Documents/Xp ert%20Xpress%20SAR S%20CoV-2/Fact%20S heets/302-3801%20S ARS-COV-2%20PATIEN T%20FACT%20SHEET.p df Lab Interpretation Normal (test code = 72218-0) [facility] 12:45:15 Test Item Value Reference Interpretation Comments Range SARS-COV2/RT-PCR Negative Negative The SARS-Co V-2 (test code = target nucleic 58788-6) acids are not detected in thi s [...] revoked sooner. Fact Sheet for Healthcare Providers: https://www.[employer]/Documents/Xp ert%20Xpress%20SAR S%20CoV-2/Fact%20S heets/302-3802%20S ARS-COV-2%20HEALTH CARE%20PROVIDERS%2 0FACT%20SHEET.pdf Fact Sheet for Healthcare Patients: https://www.[employer]/Documents/Xp ert%20Xpress%20SAR S%20CoV-2/Fact%20S heets/302-3801%20S ARS-COV-2%20PATIEN T%20FACT%20SHEET.p df Lab Interpretation Normal (test code = 28095-6) [facility]2022-05-15 12:45:15 Test Item Value Reference Interpretation Comments Range SARS-COV2/RT-PCR Negative Negative The SARS-Co V-2 (test code = target nucleic 14804-2) acids are not detected in thi s [...] revoked sooner. Fact Sheet for Healthcare Providers: https://www.[employer]/Documents/Xp ert%20Xpress%20SAR S%20CoV-2/Fact%20S heets/3023802%20S ARS-COV-2%20HEALTH CARE%20PROVIDERS%2 0FACT%20SHEET.pdf Fact Sheet for Healthcare Patients: https://www.[employer]/Documents/Xp ert%20Xpress%20SAR S%20CoV-2/Fact%20S heets/3023801%20S ARS-COV-2%20PATIEN T%20FACT%20SHEET.p df Lab Interpretation Normal (test code = 96541-6) [facility]2022-05-15 12:45:15 Test Item Value Reference Interpretation Comments Range SARS-COV2/RT-PCR Negative Negative The SARS-Co V-2 (test code = target nucleic 48156-0) acids are not detected in thi s [...] revoked sooner. Fact Sheet for Healthcare Providers: https://www.[employer]/Documents/Xp ert%20Xpress%20SAR S%20CoV-2/Fact%20S heets/302-3802%20S ARS-COV-2%20HEALTH CARE%20PROVIDERS%2 0FACT%20SHEET.pdf Fact Sheet for Healthcare Patients: https://www.[employer]/Documents/Xp ert%20Xpress%20SAR S%20CoV-2/Fact%20S heets/302-3801%20S ARS-COV-2%20PATIEN T%20FACT%20SHEET.p df Lab Interpretation Normal (test code = 83024-7) [facility]2022-05-15 12:45:15 Test Item Value Reference Interpretation Comments Range SARS-COV2/RT-PCR Negative Negative The SARS-Co V-2 (test code = target nucleic 68016-1) acids are not detected in thi s [...] revoked sooner. Fact Sheet for Healthcare Providers: https://www.[employer]/Documents/Xp ert%20Xpress%20SAR S%20CoV-2/Fact%20S heets/302-3802%20S ARS-COV-2%20HEALTH CARE%20PROVIDERS%2 0FACT%20SHEET.pdf Fact Sheet for Healthcare Patients: https://www.[employer]/Documents/Xp ert%20Xpress%20SAR S%20CoV-2/Fact%20S heets/302-3801%20S ARS-COV-2%20PATIEN T%20FACT%20SHEET.p df Lab Interpretation Normal (test code = 12446-1) [facility])2022-05-15 12:45:15 Test Item Value Reference Range Interpretation Comments SARS-COV2/RT-PCR Negative Negative The SARS-Co V-2 target (test code = nucleic acids a re not 2622240) detected in thi s specimen. Negative result [...] individuals suspected of CO VID-19 by their [facility] provider. This test has been authorized [...] revoked sooner. Fact Sheet for Healthcare Providers: https://www.[employer]/Documents/Xpert%20Xpress%20SARS%20CoV-2/Fact%20Sheets/302-3802%37WDZT-OMD-9%20 HEALTHCARE%20PROVIDERS%20FACT%20SHEET.pdf Fact Sheet for Healthcare Patients: https://www.[employer]/Documents/Xpert%20Xp ress%20SARS%20CoV-2/Fact%20Sheets/302-3801%23DYMV-YMC-2%20PATIENT%20FACT%20SHEET .[id number] 02:48:18 Test Item Value Reference Range Interpretation Comments MAGNESIUM (BEAKER) (test code = 1.9 mg/dL 1.6-2.6 627) Sample Tailor ID - WALLY [id number] 02:48:18 Test Item Value Reference Range Interpretation Comments PHOSPHORUS (BEAKER) (test code = 2.3 mg/dL 2.3-4.7 604) Sample Tailor ID - WALLY MHEPATIC FUNCTION [id number] 02:48:18 Test Item Value Reference Range Interpretation [...] (test code = 28 U/L 6-55 347) Sample Tailor ID - WALLY ASIC METABOLIC [id number] 02:48:17 Test Item Value Reference Range Interpretation [...] not appl icable for dialysis patien ts Sample Tailor ID - WALLY MPROTHROMBIN [id number] 01:51:51 Test Item Value Reference Range Interpretation Comments PROTIME (BEAKER) 13.9 seconds 11.9-14.2 (test code = 759) INR (BEAKER) (test 1.13 See_Comment [Automat ed message] code = 370) The system [employer] generated this result transmitted ref erence range: <=5.90. The reference range was not used to int erpret this result as normal/abnormal . RECOMMENDED COUMADIN/WARFARIN INR THERAPY RANGESSTANDARD DOSE: 2.0 - 3.0 Includes: PROPHYLAXIS for venous thrombosis, systemic embolization; TREATMENT for venous thrombosis and/or pulmonary embolus.HIGH RISK: Target INR is 2.5-3.5 for patients with mechanical heart valves.CBC W/PLT COUNT & AUTO [id number] 01:43:47 Test Item Value Reference Range Interpretation [...] (BEAKER) (test code = 2801) BASIC METABOLIC [id number] 04:05:58 Test Item Value Reference Range Interpretation [...] not appl icable for dialysis patien ts Sample Tailor ID Anatoliy ORTA [id number] 04:05:58 Test Item Value Reference Range Interpretation Comments MAGNESIUM (BEAKER) (test code = 2.2 mg/dL 1.6-2.6 627) Sample Tailor ID Anatoliy ORTA WLIPID [id number] 04:05:58 Test Item Value Reference Range Interpretation Comments TRIGLYCERIDES (BEAKER) (test code = 118 mg/dL 540) CHOLESTEROL (BEAKER) (test code = 154 mg/dL 631) HDL CHOLESTEROL (BEAKER) (test code 31 mg/dL = 976) LDL CHOLESTEROL CALCULATED (BEAKER) 99 mg/dL (test code = 633) Triglyceride Reference Range: Low Risk <150 Borderline 150-199 High Risk 200-499 Very High Risk >=500Cholesterol Reference Range: Low Risk <200 Borderline 200-239 High Risk >240HDL Cholesterol Reference Range: Low Risk >=60 High Risk <40LDL Cholesterol Reference Range: Optimal <100 Near Optimal 100-129 Borderline 130-159 High 160-189 Very High >=190 Sample Tailor ID Anatoliy ORTA WHEPATIC FUNCTION [id number] 04:05:58 Test Item Value Reference Range Interpretation [...] (test code = 54 U/L 6-55 347) Sample Tailor ID Anatoliy ORTA WCBC W/PLT COUNT & AUTO [id number] 03:45:31 Test Item Value Reference Range Interpretation [...] PERCENT (BEAKER) (test code = 2801) CT, [id number] 20:34:00Unlisted Reason for Exam - Click Yes and Enter Reason Below->NoIs this for enterography?->NoWill this procedure require oral contrast?->No [facility] 1960 Sex: MFINAL [...] not appl icable for dialysis patien ts Sample Tailor ID - MERRY MCBC (HEMOGRAM ONLY)2022-05-10 03:55:35 [...] SARS-Co V-2 (test code = target nucleic 32393-0) acids are not detected in thi s [...] revoked sooner. Fact Sheet for Healthcare Providers: https://www.[employer]/Documents/Xp ert%20Xpress%20SAR S%20CoV-2/Fact%20S heets/302-3802%20S ARS-COV-2%20HEALTH CARE%20PROVIDERS%2 0FACT%20SHEET.pdf Fact Sheet for Healthcare Patients: https://www.[employer]/Documents/Xp ert%20Xpress%20SAR S%20CoV-2/Fact%20S heets/302-3801%20S ARS-COV-2%20PATIEN T%20FACT%20SHEET.p df Lab Interpretation Normal (test code = 27805-0) [facility])2022-05-10 03:50:54 Test Item Value Reference Range Interpretation Comments SARS-COV2/RT-PCR Negative Negative The SARS-Co V-2 target (test code = nucleic acids a re not 6900067) detected in thi s specimen. Negative result [...] revoked sooner. Fact Sheet for Healthcare Providers: https://www.[employer]/Documents/Xpert%20Xpress%20SARS%20CoV-2/Fact%20Sheets/302-3802%44HUWT-LTE-9%20 HEALTHCARE%20PROVIDERS%20FACT%20SHEET.pdf Fact Sheet for Healthcare Patients: https://www.[employer]/Documents/Xpert%20Xp ress%20SARS%20CoV-2/Fact%20Sheets/302-3801%97GSEK-UYE-1%20PATIENT%20FACT%20SHEET .pdf- XR CHEST 2 [id number] 00:00:[address] [facility] : 1960 Sex: M FAX: Jordan Ledezma MD [phone] [place]: St: REG FAX: Y Ashvin Carter MD [phone] Name: CARROL ANNE [facility] : 1960 Age/S: 61/M [address] [place] [address] Blvd Unit #: [id number] Loc: [place], [place] [address]Hotr: Ashvin Carter MD Acct: [id number] Dis Date: Status: REG CLI PHONE #: [phone] Exam Date: 01/07/2022 1508 FAX #: [phone] Reason: CLL EXAMS: CPT CODE: [id number] XR CHEST 2 V 85568 PROCEDURE INFORMATION: Exam: XR Chest Exam date and time: 01/07/2022 2:51 PM Age: 61 years old Clinical indication: Pre-operative exam; Respiratory screening exam; Additional info: Cll TECHNIQUE: Imaging protocol: XR of the chest. Views: 2 views. PA and Lateral COMPARISON: DX XR CHEST 2 V 11/16/2016 2:44 PM FINDINGS: Lungs: There are normal lung volumes without consolidation or interstitial opacities. Pleuralspaces: Unremarkable. No pleural effusion. No pneumothorax. Heart/Mediastinum: [...]
--- NOTE | 2023-02-12 08:33 | RAD REPORT ---
EXAM DESCRIPTION: RAD - Chest Pa And Lat (2 Views) - 02/12/2023 8:23 am CLINICAL HISTORY: COUGH COMPARISON: Chest Single View dated 12/04/2022; Chest Single View dated 05/08/2022; Chest Single View da loki 05/06/2022; Chest Pa And Lat (2 Views) dated 04/14/2022 FINDINGS: Lines: None. Lungs: No evidence of edema or pneumonia. Pleural: No significant pleural effusions or pneumothorax. Cardiac: The heart size is within normal limits. Mediastinum: Within normal limits. Bones: No acute fractures. Other: None IMPRESSION: No acute cardiopulmonary disease.
[2023-02-12] MEDS ORDERED: NA CHLORIDE 0.9% 1,000 ML ONE (09:51)
[2023-02-12 10:06] LABS: Absolute Lymphocytes (CBC) 0.9 K/uL (0.7-4.9); Hematocrit 36.5 % (39.6-49.0); Lymphocytes % 10.4 % (15.3-44.8); MCV 84.4 fL (80-100); MPV 9.3 fL (7.6-11.3); RBC Red Blood Cell Count 4.33 M/uL (4.33-5.43)
[2023-02-12 10:16] LABS: SARS-CoV-2 Antigen Rapid Res Negative (Negative)
[2023-02-12 10:24] LABS: Potassium 2.8 mEq/L (3.5-5.1)
[2023-02-12 11:02] LABS: Blood Morphology Comment NOT SEEN (NOT SEEN); Platelet Estimate DECR; White Blood Cell Scan OK (OK)
[2023-02-12] MEDS ORDERED: KCL 20 MEQ/100 mL IVPB 100 ML IV ONE (11:13)
[2023-02-12] MEDS ORDERED: NA CHLORIDE 0.9% 500 ML ONE (11:13)
[2023-02-12] MEDS ORDERED: POTASSIUM CL SA 10 MEQ TAB PO ONE (11:13)
--- NOTE | 2023-02-12 11:20 | EDPHYS ---
Physician Documentation [facility] Name: Wiley Anne Age: 62 yrs Sex: Male : 1960 Arrival Date: 02/12/2023 Time: 08:00 Bed 7 Private MD: ED Physician Kel Louis HPI: 02/12 08:28 This 62 yrs old Male presents to ER via Wheelchair with complaints of General Weakness, rn Chest Congestion, Decreased Appetite. 08:28 The patient or guardian reports cough. Onset: The symptoms/episode began/occurred 3 rn day(s) ago. Severity of symptoms: At their worst the symptoms were mild, in the emergency department the symptoms are unchanged. Modifying factors: The symptoms are alleviated by nothing, the symptoms are aggravated by nothing. Associated signs and symptoms: Pertinent positives: diarrhea, fever, rhinorrhea, sore throat, Pertinent negatives:. The patient has not experienced similar symptoms in the past. The patient has been recently seen at the [facility] Emergency Department. Pt reports seen here this past week for vomiting and diarrhea, vomiting has stopped, still having non-bloody diarrhea, returns for decreased appetite and generalized weakness. + productive cough. Take oral chemo for CLL. Historical: - Allergies: 08:14 No Known Allergies; aa5 - Home Meds: 08:16 Flomax 0.4 mg Oral cap 2 caps once daily [Active]; montelukast 10 mg oral tablet once aa5 [Active]; Imbruvica 420 mg oral tablet once [Active]; - PMHx: 08:13 CLL; aa5 08:16 Oral chemotherapy; aa5 - PSHx: 08:13 abcess D/C; Cholecystectomy; aa5 - Immunization history:: Adult Immunizations unknown. - Social history:: Smoking status: Patient denies any tobacco usage or history of. - Family history:: not pertinent. - Hospitalizations: : No recent hospitalization is reported. ROS: 08:28 Constitutional: + fever and chills Eyes: Negative for injury, pain, redness, and clinical appeals rn, Cardiovascular: Negative for palpitations, and edema, Respiratory: Negative for wheezing, + sob and cough Abdomen/GI: Negative for abdominal pain, nausea, vomiting, and constipation, MS/Extremity: Negative for injury and deformity, Skin: Negative for injury, rash, and discoloration, Neuro: + generalized weakness Exam: 08:28 Constitutional: This is a well developed, well nourished patient who is awake, alert, rn and in no acute distress. Head/Face: Normocephalic, atraumatic. ENT: dry MM Cardiovascular: Tachycardic, regular. No pulse deficits. Respiratory: Mild tachypnea. No retractions. Abdomen/GI: Soft, non-tender Skin: Warm, dry MS/ Extremity: Pulses equal, no cyanosis. Neuro: Awake and alert, GCS 15 Vital Signs: 08:13 BP 135 / 75; Pulse 107; Resp 20 S; Temp 98.4(TE); Pulse Ox 92% on R/A; aa5 10:30 BP 101 / 70; Pulse 78; Resp 16; Pulse Ox 100% on R/A; ss MDM: 08:06 Patient medically screened. rn 11:17 Differential Diagnosis: Bronchitis Influenza Upper Respiratory Infection Sinusitis rn Viral Syndrome Pneumonia. Data reviewed: vital signs, nurses notes, lab test result(s), radiologic studies, plain films, and as a result, I will discharge patient. Independent interpretation of the following test(s) in the Emergency Department X-Ray: My interpretation is CXR images neg for pneumonia per my interpretation. Counseling: I had a detailed discussion with the patient and/or guardian regarding: the historical points, exam findings, and any diagnostic results supporting the discharge/admit diagnosis, lab results, radiology results, the need for outpatient follow up, to return to the emergency department if symptoms worsen or persist or if there are any questions or concerns that arise at home. Special discussion: I discussed with the patient/guardian in detail that at this point there is no indication for admission to the hospital. It is understood, however, that if the symptoms persist or worsen the patient needs to return immediately for re-evaluation. 02/12 08:13 Order name: CBC with Diff 02/12 08:13 Order name: Basic Metabolic Panel; Complete Time: 10:41 aa02/12 08:13 Order name: SARS RAPID; Complete Time: 10:41 02/12 08:13 Order name: Flu; Complete Time: 10:41 02/12 08:13 Order name: Strep aa02/12 08:17 Order name: Blood Culture Adult (2) rn 02/12 08:17 Order name: Lactate w/ 2H reflex if indic.; Complete Time: 10:41 rn 02/12 10:30 Order name: Throat Culture EDCO 02/12 11:03 Order name: CBC Smear Scan EDCO 02/12 11:30 Order name: Glucose, Ancillary Testing EDCO 02/12 08:13 Order name: XRAY Chest Pa And Lat (2 Views); Complete Time: 08:39 aa5 02/12 08:13 Order name: IV Start; Complete Time: 09:55 aa5 02/12 08:13 Order name: Glucose Level; Complete Time: 09:55 aa5 Administered Medications: 09:56 Drug: NS 0.9% IV 1000 ml Route: IV; Rate: 1000 ml; Site: left wrist; ss 11:20 Drug: Potassium Chloride IV 20 mEq Route: IV; Rate: calculated rate; Site: left wrist; iw 12:50 Follow up: IV Status: Completed infusion iw 11:20 Drug: Potassium Chloride PO 40 mEq Route: PO; iw 12:00 Follow up: Response: No adverse reaction iw 11:37 Drug: AZITHromycin PO 500 mg Route: PO; iw 12:10 Follow up: Response: No adverse reaction iw Disposition Summary: 02/12/23 11:20 Discharge Ordered Location: Home rn Problem: an ongoing problem rn Symptoms: have improved rn Condition: Stable rn Diagnosis - Cough rn - Dehydration rn - Hypokalemia rn Followup: rn - With: Private Physician - When: As needed - Reason: Recheck today's complaints, Re-evaluation by your physician Discharge Instructions: - Discharge Summary Sheet rn - Dehydration, Adult rn - Potassium Content of Foods rn - Cough, Adult rn - Hypokalemia rn Forms: - Medication Reconciliation Form rn - Thank You Letter rn - Antibiotic risk management intern - Prescription Opioid Use rn Prescriptions: - Zithromax Z-Roshan 250 mg Oral Tablet - take 1 tablet by ORAL route as directed for 5 days Day 1 - take two (2) tablets rn one time. Day 2, 3, 4 , 5 take one (1) tablet once daily.; 6 tablet; Refills: 0, Product Selection Permitted Signatures: Dispatcher [employer] Geeta Ann RN RN iw Kel Louis MD MD rn Calderon, Audri RN RN aa5 Stacey Robertson RN RN ss
--- NOTE | 2023-02-12 11:20 | ER ---
Nurse's Notes [facility] Name: Wiley Anne Age: 62 yrs Sex: Male : 1960 Arrival Date: 02/12/2023 Time: 08:00 Bed 7 Private MD: Diagnosis: Cough;Dehydration;Hypokalemia Presentation: 02/12 08:13 Chief complaint: Patient states: generalized weakness, decreased appetite, vomiting, aa5 diarrhea. Reports being seen here recently and vomiting has improved. 08:13 Coronavirus screen: cough unrelated to allergies. Ebola Screen: Patient denies travel aa5 to an Ebola-affected area in the 21 days before illness onset. Initial Sepsis Screen: Does the patient meet any 2 criteria? HR > 90 bpm. Does the patient have a suspected source of infection? Yes: Productive cough/pneumonia. Risk Assessment: Do you want to hurt yourself or someone else? Patient reports no desire to harm self or others. Onset of symptoms was February 2023. 08:13 Acuity: JASMIN 3 aa5 08:13 Method Of Arrival: Wheelchair aa5 Historical: - Allergies: 08:14 No Known Allergies; aa5 - Home Meds: 08:16 Flomax 0.4 mg Oral cap 2 caps once daily [Active]; montelukast 10 mg oral tablet once aa5 [Active]; Imbruvica 420 mg oral tablet once [Active]; - PMHx: 08:13 CLL; aa5 08:16 Oral chemotherapy; aa5 - PSHx: 08:13 abcess D/C; Cholecystectomy; aa5 - Immunization history:: Adult Immunizations unknown. - Social history:: Smoking status: Patient denies any tobacco usage or history of. - Family history:: not pertinent. - Hospitalizations: : No recent hospitalization is reported. Screenin:28 [facility] ED Fall Risk Assessment (Adult) History of falling in the last 3 months, iw including since admission. Abuse screen: Denies threats or abuse. Denies injuries from another. Nutritional screening: No deficits noted. Tuberculosis screening: No symptoms or risk factors identified. Assessment: 10:00 General: Appears in no apparent distress. Behavior is calm, cooperative. Pain: Denies iw pain. Neuro: Level of Consciousness is awake, alert, obeys commands, Oriented to person, place, time, situation. Cardiovascular: Patient's skin is warm and dry. Respiratory: Reports cough that is Respiratory effort is even, unlabored, Respiratory pattern is regular, symmetrical. Derm: Skin is intact, is healthy with good turgor. Musculoskeletal: Range of motion: intact in all extremities. 11:28 Reassessment: Patient appears in no apparent distress at this time. Patient and/or iw family updated on plan of care and expected duration. Pain level reassessed. Patient is alert, oriented x 3, equal unlabored respirations, skin warm/dry/pink. 12:34 Reassessment: Patient appears in no apparent distress at this time. Patient and/or ss family updated on plan of care and expected duration. Pain level reassessed. at bedside. Vital Signs: 08:13 BP 135 / 75; Pulse 107; Resp 20 S; Temp 98.4(TE); Pulse Ox 92% on R/A; aa5 10:30 BP 101 / 70; Pulse 78; Resp 16; Pulse Ox 100% on R/A; ss ED Course: 08:02 Patient arrived in ED. ts1 08:06 Kel Louis MD is Attending Physician. rn 08:13 Arm band placed on. aa5 08:16 Triage completed. aa5 08:25 XRAY Chest Pa And Lat (2 Views) In Process Unspecified. EDMS 09:47 Initial lab(s) drawn, by me, sent to lab. First set of blood cultures drawn by me. iw Inserted saline lock: 20 gauge in left wrist, using aseptic technique. Blood collected. 09:56 Stacey Victoria, MOSES is Primary Nurse. ss 10:00 Patient has correct armband on for positive identification. iw 12:49 No provider procedures requiring assistance completed. IV discontinued, intact, iw bleeding controlled, No redness/swelling at site. Pressure dressing applied. Administered Medications: 09:56 Drug: NS 0.9% IV 1000 ml Route: IV; Rate: 1000 ml; Site: left wrist; ss 11:20 Drug: Potassium Chloride IV 20 mEq Route: IV; Rate: calculated rate; Site: left wrist; iw 12:50 Follow up: IV Status: Completed infusion iw 11:20 Drug: Potassium Chloride PO 40 mEq Route: PO; iw 12:00 Follow up: Response: No adverse reaction iw 11:37 Drug: AZITHromycin PO 500 mg Route: PO; iw 12:10 Follow up: Response: No adverse reaction iw Medication: 12:51 VIS not applicable for this client. iw Outcome: 11:20 Discharge ordered by . rn 12:50 Discharged to home ambulatory, with family. iw 12:50 Condition: good 12:50 Discharge instructions given to patient, family, Instructed on discharge instructions, follow up and referral plans. medication usage, Demonstrated understanding of instructions, follow-up care, medications, Prescriptions given X 1. 12:50 Patient left the ED. iw Signatures: Dispatcher [employer] Geeta Ann RN RN iw Kel Louis MD MD rn Calderon, Audri, RN RN aa5 Stacey Robertson RN RN ss Roxane Mckeon, NICHOLE PAS ts1
[2023-02-12] MEDS ORDERED: AZITHROMYCIN 250 MG TAB ONE (11:38)
[2023-02-12] MEDS ORDERED: MAGNES/ALUMIN/SIMET 30ML UCUP ONE (11:57)
[2023-02-12 13:22] VITALS: TEMP 98.4
[2023-02-12 13:23] VITALS: BP 101/70; O2SAT 100
== END 2023-02-12 12:50 | disposition home or self-care (01) ==
LOC: ER 08:00
DX: R05.9 Cough, unspecified (principal); E86.0 Dehydration; E87.6 Hypokalemia; C91.10 Chronic lymphocytic leukemia of B-cell type not having achieved remission; Z20.822 Contact with and (suspected) exposure to COVID-19
CPT/HCPCS: 96365; 87040; 87070; 85025; 80048; 36415; 82947; 87081; 83605; 87804 ×2; 71046; 99284; 87811; J3480; J7040; J7030

== ENCOUNTER 2023-02-17 08:23 | Emergency (ER) | payer SELFPAY ==
--- OUTSIDE RECORDS SUMMARY | 2023-02-17 08:37 | XMS REPORT | Continuity of Care Document ---
:1960 Author Organization [facility] t Address [address] [place] [address] [place] [id number] Care Team Providers Name Role Phone Jordan Juarez Mac Primary Care Physician RADHA OTTO Attending Clinician Unavailable Chris Brown MD Attending Clinician HEIDI LUGO Attending Clinician Unavailable Deniz Cervantes MD Attending Clinician Heidi Lugo MD Attending Clinician Doctor Unassigned, [place] Attending Clinician Unavailable Cherie Schmidt DO Attending [...] Unavailable Ayan PORRAS, Larisa Pedersen Attending Clinician [phone] Leticia PORRAS, Goran Attending Clinician Elizabeth PORRAS, Casie Lock Attending Clinician Cheryl Bee Attending Clinician Unavailable GENARO VELÁSQUEZ Attending Clinician Unavailable Merchant PORRAS, Ayo Attending Clinician Mian PORRAS, Isidro Attending Clinician Christen PORRAS, Genaro Doyle Attending Clinician [phone] Georgiana Clarke MD Attending Clinician SANDRA DAMICO [...] Number Effective Date Expiration Date Markell CUEVAS [id number] 2021 00:00:00 Problems Condition Condition Condition Status [...] Common chronic chronic Spirit pain pain - [facility] Allergic Allergic Problem Active Commo n rhinitis, rhinitis, Spir it seasonal seasonal - [facility] Essential Essential Problem Active Com mon (primary) (primary) Spir it hypertensi hypertensi - [facility] Paresthesi Paresthesi Problem Active C ommon a of skin a of skin Spir it - [facility] Scratched Scratched Problem Active Com mon by cat, by cat, Spirit initial initial - [facility] encounter encounter [facility] Asthmatic Asthmatic Problem Active Com mon bronchitis bronchitis Sp epifanio - [facility] 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 sequela sequela [facility] Allergies, Adverse Reactions, Alerts Allergy Allergy Status Severity Reaction(s) Onset Inactive Treating Comm ents Source Name Type Date Date Clinician No Known DA Active U 2016- [facility] Allergie -31 Clear s 00:00: Rodríguez 00 [facility] NO KNOWN Allergy Active [facility] ALLERGIE S Ondanset Adverse Active Info Not Commo n becca Reaction Available Spiri t - [facility] Lisinopr Adverse Active headache, Comm on il Reaction numbness/tin Sp epifanio gling to R - [facility] arm [facility] NO KNOWN Drug Active Univers ALLERGIE Class ity of S [place] [facility] Hydrocod Adverse Active Info Not Commo n one-Acet Reaction Available Spi rit aminophe - [facility] Social History Social Habit Start Date Stop Date Quantity Comments Source History of tobacco Passive smoker Un iversity of use [place] [facility] History SDOH University o f Alcohol Std Drinks [place] [facility] History SDOH University o f Alcohol Binge [place] [facility] History SDOH Social Unive rsity of Connections Get [place] [facility] ical Together Branch History SDOH Social Unive rsity of Connections [employer] [place] [facility] History SDOH Social Unive rsity of Connections [place] [facility] Membership [facility] History SDOH Social Unive rsity of Connections [place] [facility] Meetings [facility] Exposure to 2022-12-10 2022-12-20 [...] 5 University o f Financial 00:00:00 00:00:00 [place] [facility] History SDKY Food 2022-11-30 2022-11-30 1 Univers ity of Worry 00:00:00 00:00:00 [place] [facility] History SDOH Food 2022-11-30 2022-11-30 1 Univers ity of Scarcity 00:00:00 00:00:00 [place] [facility] History [facility] 2022-11-30 2022-11-30 2 University o f Transport Med 00:00:00 00:00:00 [place] Medic al [facility] History [facility] 2022-11-30 2022-11-30 2 University o f Transport Non-Med 00:00:00 00:00:00 [place] M edical [facility] History [facility] 2022-11-30 2022-11-30 2 University o f Housing Unable to 00:00:00 00:00:00 [place] M edical Pay Branch History [facility] 2022-11-30 2022-11-30 1 University o f Housing Places 00:00:00 00:00:00 [place] Medi daniel Lived Branch History [facility] 2022-11-30 2022-11-30 2 University o f Housing Homeless 00:00:00 00:00:00 [facility] dical Last Year Branch Alcohol intake 2022-11-29 2022-11-29 Ex-drinker [facility] 00:00:00 00:00:00 (finding) [facility] Education 2022-11-29 2022-11-29 13 [facility] 00:00:00 00:00:00 [facility] Tobacco use and 2022-07-26 2022-07-26 Smokeless Universit y of exposure 00:00:00 00:00:00 tobacco non-user [facility] dical Branch Sex Assigned At [birth year] Universit y of 00:00:00 00:00:00 [facility] Smoking Status Start Date Stop Date Source Never smoked tobacco [facility] Medications Ordered Filled Start Stop Current Ordering Indication Dosage Frequency Signature Comments Components Source Medication Medication Date Date Medication? Clinician (SIG) Name Name traMADoL No 50mg 50 mg, Univer s (ULTRAM) 11-30 Oral, ONCE ity of tablet 50 19:00: 19:19 NOW, 1 [place] mg 00 :00 dose, On Medical [facility] 11/30/22 at 1400, Routine ibrutinib 2022-0 2022- [...] First dose Medi daniel 40 mg on [facility] 11/30/22 at 0900, Until Discontinu ed, Routine enoxaparin 2022-0 Yes 40mg 40 mg, Unive rs (LOVENOX) 11-30 Subcutaneo ity of injection 14:00: [place], [place]ILY, [place] 40 mg 00 First dose Medical on [facility] 11/30/22 at 0900, Until Discontinu ed, Routine tamsulosin 0 Yes .4mg 0.4 mg, Univ ers (FLOMAX) 11-30 Oral, ity of capsule 0.4 14:00: DAILY, [place] 00 First dose Medical on [facility] 11/30/22 at 0900, Until Discontinu ed, Routine ibrutinib 0 Yes 420mg 420 mg, Univ ers (IMBRUVICA) 11-30 Oral, ity of capsule 420 14:00: DAILY, [place] mg 00 First dose Medical on [facility] 11/30/22 at 0900, Until Discontinu ed iopamidol 0 2022- No [id number] 80mL 80 mL, Univers (ISOVUE 11-30 Intravenou ity o f 370-500 mL) 01:02: 01:15 s, ONCE, 1 [place] injection 00 :00 dose, On Medica l 80 mL [facility] 11/29/22 at 2015, Routine cyclobenzap 2022-0 Yes 5mg 5 mg, Unive rs rine 11-30 Oral, TID, ity of (FLEXERIL) 01:00: First dose [place] tablet 5 mg 00 on [facility] Medica l 11/29/22 at Branch 2000, Until Discontinu ed, Routine ondansetron 0 Yes 4mg 4 mg, Slow Univers (ZOFRAN 11-29 IV Push, ity of (PF)) 23:14: Q6HPRN, [place] injection 4 01 Starting Medi daniel mg on [facility] Branch 11/29/22 at 1814, Until Discontinu ed, Routine, Nausea and Vomiting (N/V) albuterol 0 Yes 2.5mg 2.5 mg, Univ ers (PROVENTIL) 11-29 Inhalation it y of 2.5 mg /3 23:10: , Q4HPRN, [place] as mL (0.083 46 Starting Medica l %) on [facility] nebulizer 11/29/22 at solution 1810, 2.5 mg Until Discontinu ed, Shortness of Breath ondansetron 2022-0 202- No 4mg 4 mg, Univ ers (ZOFRAN-ODT 11-29 Oral, ity of ) 22:45: 22:09 ONCE, 1 [place] disintegrat 00 :00 dose, On Medi daniel ing tablet [facility] 4 mg 11/29/22 at 1745, Routine HYDROcodone 2022-0 2022- No 1{tbl} 1 tablet, Univers -acetaminop 11-29 Oral, ity of hen (NORCO 22:00: 22:10 ONCE, 1 [place] 5) 5-325 mg 00 :00 dose, On Medi daniel tablet 1 [facility] tablet 11/29/22 at 1700, VIVIENNE ibrutinib 2021-09 Yes 1{tbl} Take 1 Univ ers (IMBRUVICA) 2-03 tablet by ity of 420 mg Tab 13:21: mouth in [place] 14 the Medical morning. [place] ALBUTEROL 2021-09 Yes Inhale as Uni vers INHALE 2-03 needed. ity of 13:21: [address] ibrutinib 2021-09 Yes 1{tbl} Take 1 Univ ers (IMBRUVICA) 2-03 tablet by ity of 420 mg Tab 13:21: mouth in [place] 14 the Medical morning. Branch ALBUTEROL 2021-09 Yes Inhale as Uni vers INHALE 2-03 needed. ity of 13:21: [address] 2021-09 Yes 1{tbl} Take 1 Univ ers (IMBRUVICA) 2-03 tablet by ity of 420 mg Tab 13:21: mouth in [place] 14 the Medical morning. Branch ALBUTEROL 2021-09 Yes Inhale as Uni vers INHALE 2-03 needed. ity of 13:21: [address] ibrutinib 2021-09 Yes 1{tbl} Take 1 Univ ers (IMBRUVICA) 2-03 tablet by ity of 420 mg Tab 13:21: mouth in [place] 14 the Medical morning. Branch ALBUTEROL 2021-09 Yes Inhale as Uni vers INHALE 2-03 needed. ity of 13:21: [address] 2021-09 Yes 1{tbl} Take 1 Univ ers (IMBRUVICA) 2-03 tablet by ity of 420 mg Tab 13:21: mouth in [place] 14 the Medical morning. Branch ALBUTEROL 2021-09 Yes Inhale as Uni vers INHALE 2-03 needed. ity of 13:21: [address] 2021-09 Yes 1{tbl} Take 1 Univ ers (IMBRUVICA) 2-03 tablet by ity of 420 mg Tab 13:21: mouth in [place] 14 the Medical morning. Branch ALBUTEROL 2021-09 Yes Inhale as Uni vers INHALE 2-03 needed. ity of 13:21: [address] 2021-09 Yes 1{tbl} Take 1 Univ ers (IMBRUVICA) 2-03 tablet by ity of 420 mg Tab 13:21: mouth in [place] 14 the Medical morning. Branch ALBUTEROL 2021-09 Yes Inhale as Uni vers INHALE 2-03 needed. ity of 13:21: [address] ibrutinib 2021-09 Yes 1{tbl} Take 1 Univ ers (IMBRUVICA) 2-03 tablet by ity of 420 mg Tab 13:21: mouth in [place] 14 the Medical morning. Branch ALBUTEROL 2021-09 Yes Inhale as Uni vers INHALE 2-03 needed. ity of 13:21: [address] iohexol 2021-09- No [id number] 100mL 100 mL, Univers (OMNIPAQUE 2-03 12-03 Injection, it y of 300-100 mL) 01:45: 01:36 ONCE, 1 [place] injection 00 :00 dose, On Medica l 100 mL Fri [place] 08/06/22 at 1945, Routine lidocaine 2021-09 Yes PRN, Univers 1% (PF) 203 Starting ity of (XYLOCAINE) 00:25: on [place] injection 08 08/06/22 at [facility] Until Discontinu ed, Routine FENTanyl PF 2021-09 Yes Slow IV Uni vers (SUBLIMAZE 2 Push, PRN, ity of (PF)) 00:25: Starting [place] injection 04 on [facility] 08/06/22 at [place] 1825, Until Discontinu ed, Routine midazolam 2021-09 Yes IV Push, Univ ers (VERSED) 2-03 PRN, ity of injection 00:25: Starting [place] 03 on [facility] 08/06/22 at [place] 1825, Until Discontinu ed, Routine levoFLOXaci 2021-09- No [id number] 750mg Take 1 Univers n 750 mg 10-08 8 tablet by ity o f tablet 00:00: 05:59 mouth [place] 00 :00 every 24 Medical ([facility] ur) hours for 2 days. levoFLOXaci 2021-09- No [id number] 750mg Take 1 Univers n 750 mg 10-08 8 tablet by ity o f tablet 00:00: 05:59 mouth [place] 00 :00 every 24 Medical ([facility] ur) hours for 2 days. amoxicillin 2021-09- No [id number] 1{tbl} Take 1 Univers -clavulanat 10-08 8 tablet by it y of e 875-125 00:00: 00:00 mouth in [place] mg per 00 :00 the Medical tablet morning Branch and 1 tablet in the evening. Do all this for 2 days. amoxicillin 2021-09- No [id number] 1{tbl} Take 1 Univers -clavulanat 10-08 8 [...] on 08/02/22 at 1215, Last dose on [place] 08/08/22 at 1215, 20 mL
Reas on for Anti-Infec tive: Documented Infection& lt;br>Docu mented Infection Site: Abdominal< br>Duratio n of Therapy: 7 days cefTRIAXone 2021-09 No 1000mg 1,000 mg, Univers (ROCEPHIN) 10-01 Intravenou it y of 1,000 mg in 18:15: 16:45 s, Q24H [place] NaCl 0.9% 00 :56 ABX, 5 Medical (NS) 50 mL doses, Branch MINI-BAG First dose on [place] 08/01/22 at 1215, Last dose on [place] 08/05/22 at 1215, Administer over 30 Minutes, 50 mL
Reas on for Anti-Infec tive: Documented Infection< br>Documen loki Infection Site: Abdominal< br>Duratio n of Therapy: 7 days KCL 20 2021-09 No 40meq 40 mEq, Univer s mEq/15 mL 10-01 Oral, ity of solution 40 15:30: 15:29 ONCE, 1 [place] mEq 00 :00 dose, On Medical [place] Branch 08/01/22 at 0930, Routine KCL 20 2021-09 No 40meq 40 mEq, Univer s mEq/15 mL 09-30 Oral, ity of solution 40 14:00: 15:03 ONCE, 1 [place] mEq 00 :00 dose, On [facility] Branch 07/31/22 at 0800, Routine piperacilli 2021-09- [...] [place] mEq 00 :00 dose, On [facility] Tue [place] 07/30/22 at 0900, Routine lactated 2021-09 No [...] 09-29 Oral, ity of (TYLENOL) 12:08: Q6HPRN, [place] tablet 650 17 Starting Medic al mg on Tue Branch 07/30/22 at 0608, Until Discontinu ed, Routine, Pain (scale 1-3), Temp > 38.5 C pantoprazol 2021-09 Yes 40mg 40 mg, Univ ers e 09-28 Oral, ity of (PROTONIX) 16:30: DAILY, [place] EC tablet 00 First dose Medi daniel [...] Tue07/28/22 at 1945, Routine iohexol 2021-09- No [id number] 100mL 100 mL, Univers (OMNIPAQUE 09-27 Injection, it y of 300-100 mL) 22:00: 21:59 ONCE, 1 [place] injection 00 :00 dose, On Medica l 100 mL [facility] Branch 07/28/22 at 1600, Routine piperacilli 2021-09- No [id number] 3.375g 3.375 g, Univers n-tazobacta 09-27 IV [...] 21:45 Starting [place] injection 00 :52 on [facility] 07/28/22 Branch at 1157, Until Discontinu ed, Routine midazolam 2021-09- No IV Push, Uni vers (VERSED) 09-27 PRN, ity of injection 17:56: 20:52 Starting [place] 00 :00 on [facility] 07/28/22 Branch at 1156, Until Discontinu ed, Routine ondansetron 2021-09- No Slow IV Un brayan (ZOFRAN 09-27 Push, PRN, ity o f (PF)) 17:51: 17:51 Starting [place] injection 05 :05 on [facility] 07/28/22 Branch at 1151, Until Discontinu ed, Routine gadobenate 2021-09- No [id number] .2mL/kg 9.7 mL Univers dimeglumine 09-27 (0.2 mL/kg i ty of (MULTIHANCE 04:30: 04:11 ?48.5 kg), [place] -10 mL) 00 :00 Intravenou Medica l injection s, ONCE, 1 Bran ch 9.7 mL dose, On Tue07/27/22 at 2230, Routine maalox:diph 2021-09 Yes 15mL 15 mL, [facility] ers enhydrAMINE 09-27 Oral, ity of :lidocaine 01:45: DAILY, [place] 2 % viscous 00 First dose Me dical 1:1:1 on [facility] Branch (FIRST-MOUT 07/27/22 HWASH BLM) at 1945, oral Until suspension Discontinu 15 mL ed, Routine FENTanyl PF 2021-09- No Slow IV Un brayan (SUBLIMAZE 09-26 Push, PRN, it y of (PF)) 23:22: 23:49 Starting [place] injection 40 :07 on [facility] 07/27/22 Branch at 1722, Until Discontinu ed, Routine midazolam 2021-09- No IV Push, Uni vers (VERSED) 09-26 PRN, ity of injection 23:22: 23:49 Starting [place] 33 :01 on [facility] 07/27/22 Branch at 1722, Until Discontinu ed, [...] n tamsulosin 2022-1 Yes .4mg 0.4 mg, [facility] ers (FLOMAX) 09-26 Oral, ity of capsule 0.4 15:00: DAILY, [place] mg 00 First dose Medical on Tue07/27/22 at 0900, Until Discontinu ed, Routine KCL 2021-09- No 40meq 40 mEq, Univers (KLOR-CON 09-26 Oral, ity of M20) tablet 10:00: 09:34 ONCE, 1 [place] 40 mEq 00 :00 dose, On Medical Tue07/27/22 at 0400, Routine simethicone 2021-09 Yes 80mg 80 mg, [facility] ers (GAS RELIEF 09-26 Oral, ity of (SIMETHICON 09:15: PC+HS, [place] E)) 00 First dose Medical chewable on Tue tablet 80 07/27/22 mg at 0315, Until Discontinu ed, Routine lactated 2021-09- No 1000mL at 125 [facility] ers ringers IV 09-25 11-29 mL/hr, ity of infusion 22:15: 16:45 1,000 mL, [place] 1,000 mL 00 :21 IV Medical Infusion, Branch CONTINUOUS , Starting on Tue07/26/22 at 1615, Until Tue08/03/22 at 1045, Routine lactated 2021-09- No 1000mL at 999 [facility] ers ringers IV 09-25 11-21 mL/hr, ity [...] vers INHALE 1-21 needed. ity of 14:11: [address] ibrutinib 2021-09 Yes 1{tbl} Take 1 Univ ers (IMBRUVICA) 1-21 tablet by ity of 420 mg Tab 14:11: mouth in [place] 06 the Medical morning. Branch ALBUTEROL 2021-09 Yes Inhale as Uni vers INHALE 1-21 needed. ity of 14:11: [address] ibrutinib 2021-09 Yes 1{tbl} Take 1 Univ ers (IMBRUVICA) 1-21 tablet by ity of 420 mg Tab 14:11: mouth in [place] 06 the Medical morning. Branch ALBUTEROL 2021-09 Yes Inhale as Uni vers INHALE 1-21 needed. ity of 14:11: [address] ibrutinib 2021-09 Yes 1{tbl} Take 1 Univ ers (IMBRUVICA) 1-21 tablet by ity of 420 mg Tab 14:11: mouth in [place] 06 the Medical morning. Branch ALBUTEROL 2021-09 Yes Inhale as Uni vers INHALE 1-21 needed. ity of 14:11: [address] ibrutinib 2021-09 Yes 1{tbl} Take 1 Univ ers (IMBRUVICA) 1-21 tablet by ity of 420 mg Tab 14:11: mouth in [place] 06 the Medical morning. Branch ALBUTEROL 2021-09 Yes Inhale as Uni vers INHALE 1-21 needed. ity of 14:11: [address] ibrutinib 2021-09 Yes 1{tbl} Take 1 Univ ers (IMBRUVICA) 1-21 tablet by ity of 420 mg Tab 14:11: mouth in [place] 06 the Medical morning. Branch ALBUTEROL 2021-09 Yes Inhale as Uni vers INHALE 1-21 needed. ity of 14:11: [address] ibrutinib 2021-09 Yes 1{tbl} Take 1 Univ ers (IMBRUVICA) 1-21 tablet by ity of 420 mg Tab 14:11: mouth in [place] 06 the Medical morning. Branch ALBUTEROL 2021-09 Yes Inhale as Uni vers INHALE 1-21 needed. ity of 14:11: [address] iopamidol 2021-09- No [id number] 80mL 80 mL, Univers (ISOVUE 09-09 Intravenou [...] Tab 12:20: mouth Medica l 21 daily. [place] ibrutinib 2021-09 Yes 420mg QD Take [address] (Imbruvica) 0-31 mg by [facility] mg Tab 12:20: mouth Medica l 21 daily. [place] ibrutinib 2021-09 Yes 420mg QD Take [address] (Imbruvica) 0-31 mg by [facility] 420 mg Tab 12:20: mouth Medica l 21 daily. [place] ibrutinib 2021-09 Yes 420mg QD Take [address] (Imbruvica) 0-31 mg by [facility] 420 mg Tab 12:20: mouth Medica l 21 daily. [place] tamsulosin 2022-1 Yes [id number] .4mg Take 1 U nivers 0.4 mg 24 0-24 capsule by ity of hr capsule 00:00: mouth in [place] 00 the Medical morning. Branch tamsulosin 2021-1 Yes [id number] .4mg Take 1 U nivers 0.4 mg 24 0-24 capsule by ity of hr capsule 00:00: mouth in [place] 00 the Medical morning. Branch tamsulosin 2021-1 Yes [id number] .4mg Take 1 U nivers 0.4 mg 24 0-24 capsule by ity of hr capsule 00:00: mouth in [place] 00 the Medical morning. Branch tamsulosin 2021-1 Yes [id number] .4mg Take 1 U nivers 0.4 mg 24 0-24 capsule by ity of hr capsule 00:00: mouth in [place] 00 the Medical morning. Branch tamsulosin 2021-1 Yes [id number] .4mg Take 1 U nivers 0.4 mg 24 0-24 capsule by ity of hr capsule 00:00: mouth in [place] 00 the Medical morning. Branch tamsulosin 2021-1 Yes [id number] .4mg Take 1 U nivers 0.4 mg 24 0-24 capsule by ity of hr capsule 00:00: mouth in [place] 00 the Medical morning. Branch tamsulosin 2021-1 Yes [id number] .4mg Take 1 U nivers 0.4 mg 24 0-24 capsule by ity of hr capsule 00:00: mouth in [place] 00 the Medical morning. Branch tamsulosin 2021-1 Yes [id number] .4mg Take 1 U nivers 0.4 mg 24 0-24 capsule by ity of hr capsule 00:00: mouth in [place] 00 the Medical morning. Branch tamsulosin 2021-1 Yes [id number] .4mg Take 1 U nivers 0.4 mg 24 0-24 capsule by ity of hr capsule 00:00: mouth in [place] 00 the Medical morning. Branch tamsulosin 2021-1 Yes [id number] .4mg Take 1 U nivers 0.4 mg 24 0-24 capsule by ity of hr capsule 00:00: mouth in [place] 00 the Medical morning. Branch tamsulosin 2021-1 Yes [id number] .4mg Take 1 U nivers 0.4 mg 24 0-24 capsule by ity of hr capsule 00:00: mouth in [place] 00 the Medical morning. Branch tamsulosin 2021- Yes [id number] .4mg Take 1 U nivers 0.4 mg 24 0-24 capsule by ity of hr capsule 00:00: mouth in [place] 00 the Medical morning. Branch tamsulosin 2021-1 Yes [id number] .4mg Take 1 U nivers 0.4 mg 24 0-24 capsule by ity of hr capsule 00:00: mouth in [place] 00 the Medical morning. Branch tamsulosin 2021-1 Yes [id number] .4mg Take 1 U nivers 0.4 mg 24 0-24 capsule by ity of hr capsule 00:00: mouth in [place] 00 the Medical morning. Branch tamsulosin 2021- Yes [id number] .4mg Take 1 U nivers 0.4 mg 24 0-24 capsule by ity of hr capsule 00:00: mouth in [place] 00 the Medical morning. Branch tamsulosin 2021- Yes [id number] .4mg Take 1 U nivers 0.4 mg 24 0-24 capsule by ity of hr capsule 00:00: mouth in [place] 00 the Medical morning. Branch tamsulosin 2021-09 Yes [id number] .4mg Take 1 U nivers 0.4 mg 24 0-24 capsule by ity of hr capsule 00:00: mouth in [place] 00 the Medical morning. Branch tamsulosin 2021- Yes [id number] .4mg Take 1 U nivers 0.4 mg 24 0-24 capsule by ity of hr capsule 00:00: mouth in [place] 00 the Medical morning. Branch tamsulosin 2021-1 Yes [id number] .4mg Take 1 U nivers 0.4 mg 24 0-24 capsule by ity of hr capsule 00:00: mouth in [place] 00 the Medical morning. Branch tamsulosin 2021-1 Yes [id number] .4mg Take 1 U nivers 0.4 mg 24 0-24 capsule by ity of hr capsule 00:00: mouth in [place] 00 the Medical morning. Branch tamsulosin 2021- 2023- No [id number] .4mg Take 1 Univers 0.4 mg 24 [...] vers INHALE 0-23 needed. ity of 14:20: [place] [address] Medical Branch ibrutinib 2021-09 Yes 1{tbl} Take 1 Univ ers (IMBRUVICA) 0-23 tablet by ity of 420 mg Tab 14:20: mouth in [place] 29 the Medical morning. Branch ALBUTEROL 2021-09 Yes Inhale as Uni vers INHALE 0-23 needed. ity of 14:20: [address] Branch ibrutinib 2021-09 Yes 1{tbl} Take 1 Univ ers (IMBRUVICA) 0-23 tablet by ity of 420 mg Tab 14:20: mouth in [place] 29 the Medical morning. Branch ALBUTEROL 2021-09 Yes Inhale as Uni vers INHALE 0-23 needed. ity of 14:20: [address] Branch ibrutinib 2021-09 Yes 1{tbl} Take 1 Univ ers (IMBRUVICA) 0-23 tablet by ity of 420 mg Tab 14:20: mouth in [place] 29 the Medical morning. Branch ALBUTEROL 2021-09 Yes Inhale as Uni vers INHALE 0-23 needed. ity of 14:20: [address] Branch ibrutinib 2021-09 Yes 1{tbl} Take 1 Univ ers (IMBRUVICA) 0-23 tablet by ity of 420 mg Tab 14:20: mouth in [place] 29 the Medical morning. Branch ALBUTEROL 2021-09 Yes Inhale as Uni vers INHALE 0-23 needed. ity of 14:20: [address] Branch cyclobenzap 2021-09 Yes [id number] 5mg Take 1 Univers rine 5 mg 0-23 tablet by ity o f tablet 00:00: mouth in [place] the Medical morning Branch and 1 tablet at noon and 1 tablet in the evening. cyclobenzap 2021-09 Yes [id number] 5mg Take 1 Univers rine 5 mg 0-23 tablet by ity o f tablet 00:00: mouth in [place] the Medical morning Branch and 1 tablet at noon and 1 tablet in the evening. cyclobenzap 2021-09 Yes [id number] 5mg Take 1 Univers rine 5 mg 0-23 tablet by ity o f tablet 00:00: mouth in [place] 00 the Medical morning Branch and 1 tablet at noon and 1 tablet in the evening. cyclobenzap 2021-09 Yes [id number] 5mg Take 1 Univers rine 5 mg 0-23 tablet by ity o f tablet 00:00: mouth in [place] 00 the Medical morning Branch and 1 tablet at noon and 1 tablet in the evening. cyclobenzap 2021-09 Yes [id number] 5mg Take 1 Univers rine 5 mg 0-23 tablet by ity o f tablet 00:00: mouth in [place] 00 the Medical morning Branch and 1 tablet at noon and 1 tablet in the evening. cyclobenzap 2021-09 Yes [id number] 5mg Take 1 Univers rine 5 mg 0-23 tablet by ity o f tablet 00:00: mouth in [place] 00 the Medical morning Branch and 1 tablet at noon and 1 tablet in the evening. cyclobenzap 2021-09 Yes [id number] 5mg Take 1 Univers rine 5 mg 0-23 tablet by ity o f tablet 00:00: mouth in [place] 00 the Medical morning Branch and 1 tablet at noon and 1 tablet in the evening. cyclobenzap 2021-09 Yes [id number] 5mg Take 1 Univers rine 5 mg 0-23 tablet by ity o f tablet 00:00: mouth in [place] 00 the Medical morning Branch and 1 tablet at noon and 1 tablet in the evening. cyclobenzap 2021-09 Yes [id number] 5mg Take 1 Univers rine 5 mg 0-23 tablet by ity o f tablet 00:00: mouth in [place] 00 the Medical morning Branch and 1 tablet at noon and 1 tablet in the evening. cyclobenzap 2021-09 Yes [id number] 5mg Take 1 Univers rine 5 mg 0-23 tablet by ity o f tablet 00:00: mouth in [place] 00 the Medical morning Branch and 1 tablet at noon and 1 tablet in the evening. cyclobenzap 2021-09 Yes [id number] 5mg Take 1 Univers rine 5 mg 0-23 tablet by ity o f tablet 00:00: mouth in [place] 00 the Medical morning Branch and 1 tablet at noon and 1 tablet in the evening. cyclobenzap 2021-09 Yes [id number] 5mg Take 1 Univers rine 5 mg 0-23 tablet by ity o f tablet 00:00: mouth in [place] 00 the Medical morning Branch and 1 tablet at noon and 1 tablet in the evening. cyclobenzap 2021-09 Yes [id number] 5mg Take 1 Univers rine 5 mg 0-23 tablet by ity o f tablet 00:00: mouth in [place] 00 the Medical morning Branch and 1 tablet at noon and 1 tablet in the evening. cyclobenzap 2021-09 Yes [id number] 5mg Take 1 Univers rine 5 mg 0-23 tablet by ity o f tablet 00:00: mouth in [place] 00 the Medical morning Branch and 1 tablet at noon and 1 tablet in the evening. cyclobenzap 2021-09 Yes [id number] 5mg Take 1 Univers rine 5 mg 0-23 tablet by ity o f tablet 00:00: mouth in [place] 00 the Medical morning Branch and 1 tablet at noon and 1 tablet in the evening. cyclobenzap 2021-09 Yes [id number] 5mg Take 1 Univers rine 5 mg 0-23 tablet by ity o f tablet 00:00: mouth in [place] 00 the Medical morning Branch and 1 tablet at noon and 1 tablet in the evening. cyclobenzap 2021-09 Yes [id number] 5mg Take 1 Univers rine 5 mg 0-23 tablet by ity o f tablet 00:00: mouth in [place] 00 the Medical morning Branch and 1 tablet at noon and 1 tablet in the evening. cyclobenzap 2021-09 Yes [id number] 5mg Take 1 Univers rine 5 mg 0-23 tablet by ity o f tablet 00:00: mouth in [place] 00 the Medical morning Branch and 1 tablet at noon and 1 tablet in the evening. cyclobenzap 2021-09 Yes [id number] 5mg Take 1 Univers rine 5 mg 0-23 tablet by ity o f tablet 00:00: mouth in [place] 00 the Medical morning Branch and 1 tablet at noon and 1 tablet in the evening. cyclobenzap 2021-09 Yes [id number] 5mg Take 1 Univers rine 5 mg 0-23 tablet by ity o f tablet 00:00: mouth in [place] 00 the Medical morning Branch and 1 tablet at noon and 1 tablet in the evening. cyclobenzap 2021-09 No [id number] 5mg Take 1 Univers rine 5 mg [...] Indication s: acute pain cyclobenzap 2021-09 No [id number] 5mg Take 1 Univers rine 5 mg [...] Indication s: acute pain iopamidol 2021-09 No [id number] 65mL 65 mL, U nivers (ISOVUE 0-26 [...] Routine, Pain (scale 7-10) iopamidol 2021-09- No [id number] 200mL 200 mL, Univers (ISOVUE 006-25 Enteral, ity of 300-100 mL) 18:02: 18:35 TITRATE - [place] injection 00 :00 FOR Medical 200 mL [...] INHALE 0-20 needed. ity of 15:04: [address] ibrutinib 2021-09 Yes 1{tbl} Take 1 Univ ers (IMBRUVICA) 0-20 tablet by ity of 420 mg Tab 15:04: mouth in [place] 41 the Medical morning. Branch ALBUTEROL 2021-09 Yes Inhale as Uni vers INHALE 0-20 needed. ity of 15:04: [address] Indomethaci 2021-09 PRN, Unive rs n (INDOCIN) 0-19 06-23 Starting ity of suppository 15:07: 18:22 on Tue [place] 00 :35 06/23/22 Medical at 1007, Branch Until Tue06/23/22 at 1322, Routine, Intra-op ibrutinib 2021-09 Yes 1{tbl} Take 1 Univ ers (IMBRUVICA) 0-19 tablet by ity of 420 mg Tab 13:22: mouth in [place] 35 the Medical morning. [place] ALBUTEROL 2021-09 Yes Inhale as Uni vers INHALE 0-19 needed. ity of 13:22: [address] tamsulosin 2021-09 Yes .4mg 0.4 mg, Univ ers (FLOMAX) 0-18 Oral, ity of capsule 0.4 22:45: DAILY, [place] 00 First dose Medical on [facility] 06/22/22 at 1745, Until Discontinu ed, Routine tamsulosin 2021-09 Yes .4mg 0.4 mg, Univ ers (FLOMAX) 0-18 Oral, ity of capsule 0.4 22:45: DAILY, [place] 00 First dose Medical on [facility] 06/22/22 at 1745, Until Discontinu ed, Routine aquaphilic 2021-09 Yes Topical, Uni vers ointment 0-18 PRN, ity of (AQUAPHOR) 22:43: Starting [place] ointment 14 on [facility] 06/22/22 Branch at 1743, Until Discontinu ed, Routine, put under pad for minor wound care aquaphilic 2021-09 Yes Topical, Uni vers ointment 0-18 PRN, ity of (AQUAPHOR) 22:43: Starting [place] ointment 14 on [facility] 06/22/22 Branch at 1743, Until Discontinu ed, Routine, put under pad for minor wound care tc 2021-09- No [id number] 4.9mCi 4.9 Univer s 99m-mebrofe 0-17 10-17 millicurie i ty of [place] 20:15: 20:10 , [place] injection 00 :00 Intravenou Medi daniel 4.9 s, ONCE, 1 Branch millicurie dose, On 06/21/22 at 1515, Routine ondansetron 2021-09 Yes 4mg 4 mg, Unive rs (ZOFRAN-ODT 0-17 Oral, ity of ) 02:00: Q8HPRN, [place] disintegrat 09 Starting Medi daniel ing tablet on [facility] 4 mg 06/20/22 at 2100, Until Discontinu ed, Routine, Nausea and Vomiting (N/V) ondansetron 2021-09- No 4mg 4 mg, Univ ers (ZOFRAN-ODT 0-17 - Oral, ity of ) 02:00: 10:31 Q8HPRN, [place] disintegrat 09 :55 Starting Medi daniel ing tablet on [facility] 4 mg 06/20/22 at 2100, Until 06/26/22 at 0531, Routine, Nausea and Vomiting (N/V) ibrutinib 2021-09 Yes 420mg 420 mg, Univ ers (IMBRUVICA) 0-15 Oral, ity of Tab 420 mg 14:00: DAILY, [place] [id number] First dose Medical on [facility] Branch 06/19/22 at 0900, Until Discontinu ed, Routine ibrutinib 2021-09 Yes 420mg 420 mg, Univ ers (IMBRUVICA) 0-15 Oral, ity of Tab 420 mg 14:00: DAILY, [place] 00 First dose Medical on [facility] Branch 06/19/22 at 0900, Until Discontinu ed, Routine iohexol 2021-09- No [id number] 80mL 80 mL, Uni vers (OMNIPAQUE 0-15 10-15 Intravenou it y of 350 07:45: 07:42 s, ONCE, 1 [place] BULK-100 00 :00 dose, On Medical mL) [facility] injection 06/19/22 80 mL at 0245, Routine enoxaparin 2021-09 Yes 40mg 40 mg, Unive rs (LOVENOX) 0-14 Subcutaneo ity of injection 22:00: [place], DAILY, [place] 40 mg 00 First dose Medical on Tue [place] 06/18/22 at 1700, Until Discontinu ed, Routine enoxaparin 2021-09 Yes 40mg 40 mg, Unive rs (LOVENOX) 0-14 Subcutaneo ity of injection 22:00: [place], DAILY, [place] 40 mg 00 First dose Medical on Tue [place] 06/18/22 at 1700, Until Discontinu ed, Routine ondansetron 2021-09 4mg 4 mg, Univ ers (ZOFRAN) 0-14 10-17 Oral, ity of tablet 4 mg 11:45: 02:00 Q6HPRN, [place] 44 :25 Starting Medical on Tue [place] 06/18/22 at 0645, Until 06/20/22 at 2100, Routine, Nausea and Vomiting (N/V) acetaminoph 2021-09 Yes 1{tbl} 1 tablet, Univers en-codeine 0-14 Oral, ity of (TYLENOL 11:45: Q4HPRN, [place] #3) 300-30 21 Starting Medic al mg tablet 1 on Tue [place] tablet 06/18/22 at 0645, Until Discontinu ed, Routine, Pain (scale 4-6) acetaminoph 2021-09 Yes 1{tbl} 1 tablet, Univers en-codeine 0-14 Oral, ity of (TYLENOL 11:45: Q4HPRN, [place] #3) 300-30 21 Starting Medic al mg tablet 1 on Tue [place] tablet 06/18/22 at 0645, Until Discontinu ed, [...] of therapy: 5 days gadobenate 2021-09- No [id number] .2mL/kg 10.06 mL Univers dimeglumine 006-18 (0.2 [...] 0-14 Oral, ity of (TYLENOL) 05:01: Q6HPRN, [place] tablet 650 49 Starting Medic al mg on Tue Branch 06/18/22 at 0001, Until Discontinu ed, Routine, Pain (scale 1-3) acetaminoph 2021-09 Yes 650mg 650 mg, Un brayan en 0-14 Oral, ity of (TYLENOL) 05:01: Q6HPRN, [place] tablet 650 49 Starting Medic al mg on Tue Branch 06/18/22 at 0001, Until Discontinu ed, Routine, Pain (scale 1-3) albuterol 2021-09 Yes 1{puff} 1 Puff, Un brayan (VENTOLIN) 0-14 Inhalation ity of inhaler 1 04:59: , Q4HPRN, [place] Puff 21 Starting Medical on [facility] 06/17/22 at 2359, Until Discontinu ed, Wheezing, Shortness of Breath, Bronchospa sm, Chest tightness albuterol 2021-09 Yes 1{puff} 1 Puff, Un [place] (VENTOLIN) 0-14 Inhalation ity of inhaler 1 04:59: , Q4HPRN, [place] Puff 21 Starting Medical on [facility] 06/17/22 at 2359, Until Discontinu ed, Wheezing, Shortness of Breath, Bronchospa sm, Chest tightness iopamidol 2021-09- No [id number] 70mL 70 mL, Univers (ISOVUE 0-13 -13 Intravenou ity o f 370-500 mL) 23:15: 22:16 s, ONCE, 1 [place] injection 00 :00 dose, On Medica l 70 mL [facility] Branch 06/17/22 at 1815, Routine ondansetron 2021-09- No 4mg 4 mg, Slow Univers (ZOFRAN 0-17 06- IV Push, ity of (PF)) 20:00: 21:15 ONCE, 1 [place] injection 4 00 :00 dose, On Medi daniel mg [facility] Branch 06/17/22 at 1500, STAT morpHINE [...] HI St -clavulanat 05-19 tablet by [place] revoPTs e 00:00: 23:59 mouth 2 Medical (AUGMENTIN) 00 :00 (two) Center 875-125 mg times per tablet daily for 5 days. amoxicillin 2-0 2022- No 1{tbl} Q.5D Take [address] -clavulanat 05-19 tablet by [place] revoPTs e 00:00: 23:59 mouth 2 Medical (AUGMENTIN) [...] [facility] (ZOFRAN-ODT 9-06 09-14 tablet (4 Barndi kes ) 4 MG 00:00: 00:00 mg [...] Common 4-11 [facility] Spirit 00:00: - 00 [facility] Fluticasone Fluticasone Yes [place] 1 spray in Common Propionate Propionate Kamara each Spi rit nostril [facility] ProAir ProAir Yes [place] 2 puffs as Co mmon RespiClick RespiClick Kamara needed S pirit [facility] Vitamin Vitamin Yes [place] not Common B-12 B-12 Kamara defined [facility] Centrum Centrum Yes [place] not Common Adults Adults Kamara defined [facility] Allopurinol Allopurinol Yes [place] 1 tablet Common Kamara [facility] Vital Signs Vital Name Observation Time Observation Value Comments Source Systolic blood 2022-11-30 17:24:00 160 mm[Hg] Univer sity [facility] Diastolic blood 2022-11-30 17:24:00 90 mm[Hg] Unive [facility] Heart rate 2022-11-30 17:24:00 70 /min [facility] Body temperature 2022-11-30 17:24:00 36.22 [facility] Respiratory rate 2022-11-30 17:24:00 16 /min [facility] Oxygen saturation in 2022-11-30 17:24:00 96 /min University of Arterial blood by [facility] Pulse oximetry Branch Body height 2022-11-30 01:00:00 157.5 cm Universi ty of [place] [facility] Body weight 2022-11-30 01:00:00 56.7 kg Universi ty of [place] [facility] BMI 2022-11-30 01:00:00 22.86 kg/m2 Universi ty of [place] [facility] Systolic blood 2022-08-07 13:08:00 128 mm[Hg] Univer sity of pressure [place] [facility] Diastolic blood 2022-08-07 13:08:00 78 mm[Hg] Unive rsity of pressure [place] [facility] Heart rate 2022-08-07 13:08:00 78 /min Universi ty of [place] [facility] Body temperature 2022-08-07 13:08:00 37.06 [place] Univ ersity of [place] [facility] Respiratory rate 2022-08-07 13:08:00 16 /min Univ ersity of [place] [facility] Oxygen saturation in 2022-08-07 13:08:00 95 /min University of Arterial blood by [facility] Pulse oximetry Branch Body height 2022-07-28 15:52:00 157.5 cm Universi ty of [place] [facility] Body weight 2022-07-28 15:52:00 48.535 kg Universi ty of [place] [facility] BMI 2022-07-28 15:52:00 19.57 kg/m2 Universi ty of [place] [facility] Systolic blood 2022-07-12 17:06:00 120 mm[Hg] Univer sity of pressure [place] [facility] Diastolic blood 2022-07-12 17:06:00 77 mm[Hg] Unive rsity of pressure [place] [facility] Heart rate 2022-07-12 17:06:00 71 /min Universi ty of [place] [facility] Body temperature 2022-07-12 17:06:00 36.61 [place] Univ ersity of [place] [facility] Respiratory rate 2022-07-12 17:06:00 18 /min Univ ersity of [place] [facility] Body height 2022-07-12 17:06:00 157.5 cm Universi ty of [place] [facility] Body weight 2022-07-12 17:06:00 52.98 kg Universi ty of [place] [facility] BMI 2022-07-12 17:06:00 21.36 kg/m2 Universi ty of [place] [facility] Systolic blood 2022-07-10 03:00:00 123 mm[Hg] Univer sity of pressure [place] [facility] Diastolic blood 2022-07-10 03:00:00 80 mm[Hg] Unive rsity of pressure [place] [facility] Heart rate 2022-07-10 03:00:00 81 /min Universi ty of [place] [facility] Respiratory rate 2022-07-10 03:00:00 16 /min Univ ersity of [place] [facility] Oxygen saturation in 2022-07-10 03:00:00 95 /min University of Arterial blood by [place] [employer] Pulse oximetry Branch Body temperature 2022-07-09 21:24:00 36.56 [place] Univ ersity of [place] [facility] Body weight 2022-07-09 21:24:00 53.071 kg Universi ty of [place] [facility] BMI 2022-07-09 21:24:00 21.40 kg/m2 Universi ty of [place] [facility] Systolic blood 2022-06-27 13:08:00 121 mm[Hg] Univer sity of pressure [place] [facility] Diastolic blood 2022-06-27 13:08:00 78 mm[Hg] Unive rsity of pressure [place] [facility] Heart rate 2022-06-27 13:08:00 74 /min Universi ty of [place] [facility] Body temperature 2022-06-27 13:08:00 36.44 [place] Univ ersity of [place] [facility] Respiratory rate 2022-06-27 13:08:00 18 /min Univ ersity of [place] [facility] Oxygen saturation in 2022-06-27 13:08:00 94 /min University of Arterial blood by [place] [employer] Pulse oximetry Branch Body weight 2022-06-24 05:00:00 53.071 kg Universi ty of [place] [facility] BMI 2022-06-24 05:00:00 21.40 kg/m2 Universi ty of [place] [facility] Body height 2022-06-18 10:38:00 157.5 cm Universi ty of [place] [facility] Systolic blood 2022-06-23 09:53:00 128 mm[Hg] Univer sity of pressure [place] [facility] Diastolic blood 2022-06-23 09:53:00 80 mm[Hg] Unive rsity of pressure [place] [facility] Heart rate 2022-06-23 09:53:00 64 /min Universi ty of [place] [facility] Body temperature 2022-06-23 09:53:00 36.44 [place] Univ ersity of [place] [facility] Respiratory rate 2022-06-23 09:53:00 18 /min Univ ersity of [place] [facility] Oxygen saturation in 2022-06-23 09:53:00 98 /min University of Arterial blood by [facility] Pulse oximetry Branch Body weight 2022-06-23 05:00:00 51.982 kg Universi ty of [place] [facility] BMI 2022-06-23 05:00:00 21.40 kg/m2 Universi ty of [place] [facility] Body height 2022-06-18 10:38:00 157.5 cm Universi ty of [place] [facility] WEIGHT 2022-05-14 23:49:00 57.788 kg WEIGHT 2022-05-14 23:49:00 57.788 kg Systolic blood 2022-08-07 13:08:00 128 mm[Hg] Univer sity of pressure [place] [facility] Diastolic blood 2022-08-07 13:08:00 78 mm[Hg] Unive rsity of pressure [place] [facility] Heart rate 2022-08-07 13:08:00 78 /min Universi ty of [place] [facility] Body temperature 2022-08-07 13:08:00 37.06 [place] Univ ersity of [place] [facility] Respiratory rate 2022-08-07 13:08:00 16 /min Univ ersity of [place] [facility] Oxygen saturation in 2022-08-07 13:08:00 95 /min University of Arterial blood by [facility] Pulse oximetry Branch Systolic blood 2022-07-30 17:53:00 111 mm[Hg] Univer sity of pressure [place] [facility] Diastolic blood 2022-07-30 17:53:00 71 mm[Hg] Unive rsity of pressure [place] [facility] Heart rate 2022-07-30 17:53:00 94 /min Universi ty of [place] [facility] Oxygen saturation in 2022-07-30 17:53:00 100 /min University of Arterial blood by [facility] Pulse oximetry Branch Body temperature 2022-07-30 17:52:00 36.28 [place] Univ ersity of [place] [facility] Respiratory rate 2022-07-30 17:52:00 18 /min Univ ersity of [place] [facility] Systolic blood 2022-07-29 13:46:00 128 mm[Hg] Univer sity of pressure [place] [facility] Diastolic blood 2022-07-29 13:46:00 78 mm[Hg] Unive rsity of pressure [place] [facility] Heart rate 2022-07-29 13:46:00 65 /min Universi ty of [place] [facility] Body temperature 2022-07-29 13:46:00 36.22 [place] Univ ersity of [place] [facility] Respiratory rate 2022-07-29 13:46:00 18 /min Univ ersity of [place] [facility] Oxygen saturation in 2022-07-29 13:46:00 96 /min University of Arterial blood by [place] [employer] Pulse oximetry Branch Body height 2022-07-28 15:52:00 157.5 cm Universi ty of [place] [facility] Body weight 2022-07-28 15:52:00 48.535 kg Universi ty [facility] [place] [facility] BMI 2022-07-28 15:52:00 19.57 kg/m2 Universi ty [facility] [place] [facility] Systolic blood 2022-06-27 13:08:00 121 mm[Hg] Univer sity of pressure [place] [facility] Diastolic blood 2022-06-27 13:08:00 78 mm[Hg] Unive rsity of pressure [place] [facility] Heart rate 2022-06-27 13:08:00 74 /min Universi ty of [place] [facility] Body temperature 2022-06-27 13:08:00 36.44 [place] Univ ersity of [place] [facility] Respiratory rate 2022-06-27 13:08:00 18 /min Univ ersity of [place] [facility] Oxygen saturation in 2022-06-27 13:08:00 94 /min University of Arterial blood by [place] [employer] Pulse oximetry Branch Systolic blood 2022-06-26 16:21:00 114 mm[Hg] Univer sity of pressure [place] [facility] Diastolic blood 2022-06-26 16:21:00 70 mm[Hg] Unive rsity of pressure [place] [facility] Heart rate 2022-06-26 16:21:00 88 /min Universi ty of [place] [facility] Body temperature 2022-06-26 16:21:00 36.22 [place] Univ ersity of [place] [facility] Respiratory rate 2022-06-26 16:21:00 18 /min [facility] Oxygen saturation in 2022-06-26 16:21:00 93 /min University Arterial blood by [facility] Pulse oximetry Branch Body weight 2022-06-24 05:00:00 53.071 kg [facility] BMI 2022-06-24 05:00:00 21.40 kg/m2 [facility] Body height 2022-06-18 10:38:00 157.5 cm [facility] Systolic blood 2022-05-19 11:33:00 133 mm[Hg] [facility] Diastolic blood 2022-05-19 11:33:00 74 mm[Hg] [facility] Heart rate 2022-05-19 11:33:00 80 /min [facility] Body temperature 2022-05-19 11:33:00 36.17 [facility] Respiratory rate 2022-05-19 11:33:00 18 /min [facility] Oxygen saturation in 2022-05-19 11:33:00 97 /min [facility] Arterial blood by Medical Ce nter Pulse oximetry Body weight 2022-05-14 23:49:00 57.788 kg [facility] BMI 2022-05-14 23:49:00 23.30 kg/m2 [facility] Systolic blood 2022-05-11 15:14:00 132 mm[Hg] [facility] Diastolic blood 2022-05-11 15:14:00 84 mm[Hg] [facility] Heart rate 2022-05-11 15:14:00 89 /min [facility] Body temperature 2022-05-11 15:14:00 37.11 [facility] Respiratory rate 2022-05-11 15:14:00 18 /min [facility] Oxygen saturation in 2022-05-11 15:14:00 94 /min [facility] Arterial blood by Medical Ce nter Pulse oximetry Procedures Procedure Date / Time Performing Source Performed Clinician KAVYA 2022-11-30 Daryl Lambert [facility] 09:43:00 [facility] MAGNESIUM 2022-11-30 Fausto [place] University of 09:43:00 [facility] HEPATIC FUNCTION PANEL ([id number]) 2022-11-30 Fausto [place] U niversity of (ALB,T.PRO,BILI 09:43:00 [facility],BU/BC,ALT,AST,ALK PHOS) Branch BASIC METABOLIC PANEL (NA, K, 2022-11-30 Fausto [place] Un iversity of CL, CO2, GLUCOSE, BUN, 09:43:00 [facility] ical CREATININE, CA) Branch CBC WITH DIFF 2022-11-30 Fausto [place] University of 09:43:[address] [facility] [address] ABDOMEN PELVIS W CONTRAST 2022-11-30 Fausto [place] Uni versity of 01:05:00 [facility] COMP. METABOLIC PANEL ([id number]) 2022-11-29 Deniz Cervantes U niversity of 22:03:00 [facility] CBC WITH DIFF 2022-11-29 Deniz Cervantes Lydia of 22:03:00 [facility] CONSENT/REFUSAL FOR DIAGNOSIS 2022-11-29 Doctor Unassigned, Lydia of AND TREATMENT 18:02:35 [facility] AUTHORIZATION FOR RELEASE OF PHI 2022-10-22 Doctor Unassign ed, [facility] 06:01:00 [facility] EMERGENCY DEPARTMENT DOCUMENTS 2022-09-25 Doctor Unayara , [facility] 06:01:00 [facility] EXTERNAL PROVIDER RECORDS 2022-08-17 Doctor Unassigned, Uni versity of 06:01:00 [facility] MAGNESIUM 2022-08-07 [place], [facility] of 11:15:00 [facility] BASIC METABOLIC PANEL (NA, K, 2022-08-07 [place], [place] Un iversity of CL, CO2, GLUCOSE, BUN, 11:15:00 [facility] ical CREATININE, [place]) Branch CBC WITH DIFF 2022-08-07 [place], [facility] 11:15:00 [facility] BASIC METABOLIC PANEL (NA, K, 2022-08-07 [place], [place] Un iversity of CL, CO2, GLUCOSE, BUN, 11:15:00 [facility] ical CREATININE, [place]) Branch MAGNESIUM 2022-08-07 [place], [facility] 11:15:00 [facility] WITH DIFF 2022-08-07 [place], [facility] of 11:15:00 [facility] MAGNESIUM 2022-08-06 [place], [facility] of 10:09:00 [facility] BASIC METABOLIC PANEL (NA, K, 2022-08-06 [place], [place] Un iversity of CL, CO2, GLUCOSE, BUN, 10:09:00 [place] Med ical CREATININE, CA) Branch CBC WITH DIFF 2022-08-06 [place], [facility] of 10:09:00 [facility] BASIC METABOLIC PANEL (NA, K, 2022-08-06 [place], [place] Un iversity of CL, CO2, GLUCOSE, BUN, 10:09:00 [place] Med ical CREATININE, CA) Branch MAGNESIUM 2022-08-06 [place], [facility] of 10:09:00 [facility] CBC WITH DIFF 2022-08-06 [place], [facility] of 10:09:00 [facility] BASIC METABOLIC PANEL (NA, K, 2022-08-05 Nicholas Charles Un iversity of CL, CO2, GLUCOSE, BUN, 23:19:00 [place] Med ical CREATININE, CA) Branch PROTHROMBIN TIME / INR 2022-08-05 Nicholas Charles [place] [facility] y of 23:19:00 [facility] BASIC METABOLIC PANEL (NA, K, 2022-08-05 Nicholas Charles Un iversity of CL, CO2, GLUCOSE, BUN, 23:19:00 [place] Med ical CREATININE, CA) Branch PROTHROMBIN TIME / INR 2022-08-05 Nicholas Charles [place] [facility] y of 23:19:00 [place] [facility] [place] MAGNESIUM 2022-08-05 [place], [facility] of 10:38:00 [facility] BASIC METABOLIC PANEL (NA, K, 2022-08-05 [place], [place] Un iversity of CL, CO2, GLUCOSE, BUN, 10:38:00 [facility] [place]) Branch CBC WITH DIFF 2022-08-05 [place], [facility] of 10:38:00 [facility] BASIC METABOLIC PANEL (NA, K, 2022-08-05 [place], [place] Un iversity of CL, CO2, GLUCOSE, BUN, 10:38:00 Al[place] [facility] ical CREATININE, CA) Branch MAGNESIUM 2022-08-05 [place], [facility] of 10:38:00 Alondra [place] [facility] CBC WITH DIFF 2022-08-05 [place], [facility] of 10:38:00 [place] [facility] CBC WITHOUT DIFF 2022-08-04 [place], [facility] of 11:25:00 [place] [place] [facility] CBC WITHOUT DIFF 2022-08-04 [place], [facility] of 11:25:00 Al[place]ra [place] [facility] MAGNESIUM 2022-08-03 [place], [facility] of 10:07:00 [facility] BASIC METABOLIC PANEL (NA, K, 2022-08-03 [place], [place] Un iversity of CL, CO2, GLUCOSE, BUN, 10:07:00 Al[place] Med ical CREATININE, CA) Branch CBC WITHOUT DIFF 2022-08-03 [place], [facility] 10:07:00 [facility] [place] BASIC METABOLIC PANEL (NA, K, 2022-08-03 [place], [place] Un iversity of CL, CO2, GLUCOSE, BUN, 10:07:00 Al[place]ra [place] [facility] ical CREATININE, CA) Branch CBC WITHOUT DIFF 2022-08-03 [place], [facility] of 10:07:00 Alondra [place] [facility] MAGNESIUM 2022-08-03 [place], [facility] 10:07:00 Alondra [place] [facility] [place] MAGNESIUM 2022-08-02 [place], [facility] 10:39:00 [facility] BASIC METABOLIC PANEL (NA, K, 2022-08-02 [place], [place] Un iversity of CL, CO2, GLUCOSE, BUN, 10:39:00 Alond[place] [facility] ical CREATININE, CA) Branch CBC WITHOUT DIFF 2022-08-02 [place], [facility] of 10:39:00 Alondra [place] [facility] BASIC METABOLIC PANEL (NA, K, 2022-08-02 [place], [place] Un iversity of CL, CO2, GLUCOSE, BUN, 10:39:00 Alondra [place] [facility] ical CREATININE, CA) Branch CBC WITHOUT DIFF 2022-08-02 [place], [facility] of 10:39:00 [facility] MAGNESIUM 2022-08-02 [place], [facility] of 10:39:00 [facility] MAGNESIUM 2022-08-01 [place], [facility] 11:25:00 [facility] BASIC METABOLIC PANEL (NA, K, 2022-08-01 [place], Sirisha Un iversity of CL, CO2, GLUCOSE, BUN, 11:25:00 [facility] CREATININE, [place]) Branch CBC WITH DIFF 2022-08-01 [place], [facility] of 11:25:00 [facility] BASIC METABOLIC PANEL (NA, K, 2022-08-01 [place], Sirisha Un iversity of CL, CO2, GLUCOSE, BUN, 11:25:00 [facility] CREATININE, [place]) Branch MAGNESIUM 2022-08-01 [place], [facility] of 11:25:00 [facility] CBC WITH DIFF 2022-08-01 [place], [facility] of 11:25:00 [facility] CBC WITH DIFF 2022-07-31 [place], [facility] of 17:46:00 [facility] CBC WITH DIFF 2022-07-31 [place], [facility] of 17:46:00 [facility] HEPATITIS C VIRUS (HCV) BY 2022-07-31 [place] of QUANTITATIVE NAAT 17:42:00 [facility] HEPATITIS B VIRUS (HBV) BY 2022-07-31 [place], Sirisha Unive rsity of QUANTITATIVE NAAT 17:42:00 [facility] HEPATITIS B VIRUS (HBV) BY 2022-07-31 [place], [facility] of QUANTITATIVE NAAT 17:42:00 [facility] HEPATITIS C VIRUS (HCV) BY 2022-07-31 [place], [facility] of QUANTITATIVE NAAT 17:42:00 [facility] MAGNESIUM 2022-07-31 [place], [facility] of 10:31:00 [facility] BASIC METABOLIC PANEL (NA, K, 2022-07-31 [place], Sirisha Un iversity of CL, CO2, GLUCOSE, BUN, 10:31:00 [facility] CREATININE, [place]) Branch CBC WITHOUT DIFF 2022-07-31 [place], [facility] of 10:31:00 [facility] HIV 1/2 AG-AB WITH REFLEX 2022-07-31 [place], [facility] sity of 10:31:00 [facility] BASIC METABOLIC PANEL (NA, K, 2022-07-31 [place], Sirisha Un iversity of CL, CO2, GLUCOSE, BUN, 10:31:00 [facility] CREATININE, [place]) Branch CBC WITHOUT DIFF 2022-07-31 [place], [facility] of 10:31:00 [facility]IUM 2022-07-31 [place], [facility] of 10:31:00 [facility] HIV 1/2 AG-AB WITH REFLEX 2022-07-31 [place], [facility] sity of 10:31:00 [facility] XR CHEST 1 VW 2022-07-30 [place], [facility] of 12:39:00 [facility] XR CHEST 1 VW 2022-07-30 [place], [facility] of 12:39:00 [facility] URINALYSIS 2022-07-30 [place], [facility] of 12:30:00 [facility] URINALYSIS 2022-07-30 [place], [facility] of 12:30:00 [facility] URINE CULTURE 2022-07-30 [place], [facility] of 12:30:00 [facility] URINE CULTURE 2022-07-30 [place], [facility] of 12:30:00 [facility] CBC WITH DIFF 2022-07-30 [place], [facility] of 12:27:00 [facility] BASIC METABOLIC PANEL (NA, K, 2022-07-30 [place], Sirisha Un iversity of CL, CO2, GLUCOSE, BUN, 12:27:00 [facility] CREATININE, [place]) Branch BASIC METABOLIC PANEL (NA, K, 2022-07-30 [place], Sirisha Un iversity of CL, CO2, GLUCOSE, BUN, 12:27:00 [facility] [place] Branch CBC WITH DIFF 2022-07-30 [place] [facility] of 12:27:00 [facility] LACTIC ACID WHOLE BLOOD 2022-07-30 [place] [facility] ty of 12:22:00 [facility] LACTIC ACID WHOLE BLOOD 2022-07-30 [place] [facility] of 12:22:00 [facility] BLOOD CULTURE SCREEN 2022-07-30 [place], [facility] of 12:20:00 [facility] BLOOD CULT[facility] SCREEN 2022-07-30 [place], [facility] of 12:20:00 [facility] BLOOD CULTURE WORKUP 2022-07-30 [place], [facility] of 12:20:00 [facility] BLOOD CULTURE WORKUP 2022-07-30 [place], [facility] of 12:20:00 [facility] GRAM NEGATIVE BLOOD PATHOGENS 2022-07-30 [place], [place] Un iversity of DNA PROBE-ANAEROBIC 12:20:00 [facility] [place] BLOOD CULTURE WORKUP 2022-07-30 [place], [facility] 12:20:00 [facility] BLOOD CULTURE WORKUP 2022-07-30 [place], [facility] 12:20:00 [facility] GRAM NEGATIVE BLOOD PATHOGENS 2022-07-30 [place], [place] Un iversity of DNA PROBE-ANAEROBIC 12:20:00 [facility] [place] HB ECG ROUTINE & RHYTHM STRIP 2022-07-30 Branden Tim Un iversity of 12:10:22 [facility] HB ECG ROUTINE & RHYTHM STRIP 2022-07-30 Branden Tim Un iversity of 12:10:22 [facility] BASIC METABOLIC PANEL (NA, K, 2022-07-29 [place], [place] Un iversity of CL, CO2, GLUCOSE, BUN, 11:07:00 [facility] ical CREATININE, CA) Branch MAGNESIUM 2022-07-29 [place], [facility] 11:07:00 [facility] CBC WITH DIFF 2022-07-29 Nicholas Charles of 11:07:00 [facility] HEPATIC FUNCTION PANEL ([id number]) 2022-07-29 Nicholas Charles niversity of (ALB,T.PRO,BILI 11:07:00 [facility] T,BU/BC,ALT,AST,ALK PHOS) Branch MAGNESIUM 2022-07-29 [place], [facility] of 11:07:00 [facility] HEPATIC FUNCTION PANEL ([id number]) 2022-07-29 Nicholas Charles niversity of (ALB,T.PRO,BILI 11:07:00 [facility] T,BU/BC,ALT,AST,ALK PHOS) Branch BASIC METABOLIC PANEL (NA, K, 2022-07-29 [place], Sirisha Un iversity of CL, CO2, GLUCOSE, BUN, 11:07:00 [facility] [place] [facility] CREATININE, CA) Branch CBC WITH DIFF 2022-07-29 Nicholas Charles of 11:07:00 [facility] HB ECG ROUTINE & RHYTHM STRIP 2022-07-29 Branden Tim Un iversity of 01:45:03 [facility] HB ECG ROUTINE & RHYTHM STRIP 2022-07-29 Branden Tim Un iversity of 01:45:03 [facility] IR PLACEMENT ACCESS THRU BILIARY 2022-07-28 [place], [facility] PERCUTANEOUS NEW ACCESS 22:28:42 [facility] IR PLACEMENT ACCESS THRU BILIARY 2022-07-28 [facility] PERCUTANEOUS NEW ACCESS 22:28:42 [facility] IR DRAINAGE BY CATHETER 2022-07-28 [facility] ty of PERITONEAL OR RETROPERITONEAL 18:30:00 Te [facility] IR DRAINAGE BY CATHETER 2022-07-28 [facility] ty of PERITONEAL OR RETROPERITONEAL 18:30:00 Te [facility] BODY FLUID 2022-07-28 [facility] of CULTURE(AEROBIC/ANAEROBIC) 18:14:00 [facility] BODY FLUID 2022-07-28 [facility] of CULTURE(AEROBIC/ANAEROBIC) 18:14:00 [facility] BASIC METABOLIC PANEL (NA, K, 2022-07-28 [place], Sirisha Un iversity of CL, CO2, GLUCOSE, BUN, 11:35:00 [facility] [place] [facility] CREATININE, CA) Branch CBC WITHOUT DIFF 2022-07-28 [place], [facility] of 11:35:00 [facility] MAGNESIUM 2022-07-28 [place], [facility] 11:35:00 [facility] MAGNESIUM 2022-07-28 [place], [facility] of 11:35:00 [facility] BASIC METABOLIC PANEL (NA, K, 2022-07-28 [place], [place] Un iversity of CL, CO2, GLUCOSE, BUN, 11:35:00 [facility] CREATININE, CA) Branch CBC WITHOUT DIFF 2022-07-28 [place], [facility] of 11:35:00 [facility] MR ABDOMEN W WO CONTRAST MRCP 2022-07-28 Melvin Anguiano Un iversity of 04:29:46 [facility] MR ABDOMEN W WO CONTRAST MRCP 2022-07-28 Melvin Anguiano Un iversity of 04:29:46 [facility] IR EXCHANGE OF BILIARY DRAINAGE 2022-07-28 [place], [facility] of CATHETER 00:36:00 [facility] IR EXCHANGE OF BILIARY DRAINAGE 2022-07-28 [place], [facility] of CATHETER 00:36:00 [facility] XR KUB 2022-07-27 [place], [facility] of 21:30:00 [facility] XR KUB 2022-07-27 [place], [facility] of 21:30:00 [facility] CBC WITHOUT DIFF 2022-07-27 [place] [facility] of 18:10:00 [facility] BASIC METABOLIC PANEL (NA, K, 2022-07-27 [place], Sirisha Un iversity of CL, CO2, GLUCOSE, BUN, 18:10:00 [facility] CREATININE, [place]) Branch PROTHROMBIN TIME / INR 2022-07-27 [place], [facility] y of 18:10:00 [facility] BASIC METABOLIC PANEL (NA, K, 2022-07-27 [place], Sirisha Un iversity of CL, CO2, GLUCOSE, BUN, 18:10:00 [facility] CREATININE, [place]) Branch CBC WITHOUT DIFF 2022-07-27 Branden Tim Lydia of 18:10:00 [facility] PROTHROMBIN TIME / INR 2022-07-27 [place], [facility] y of 18:10:00 [facility] HB ECG ROUTINE & RHYTHM STRIP 2022-07-27 [place], Sirisha Un iversity of 15:50:09 [facility] HB ECG ROUTINE & RHYTHM STRIP 2022-07-27 [place], Sirisha Un iversity of 15:50:09 [facility] ABDOMEN PELVIS W CONTRAST 2022-07-27 Nicholas Charles Uni versity of 14:49:[address] [facility] [address] ABDOMEN PELVIS W CONTRAST 2022-07-27 Nicholas Charles Uni versity of 14:49:11 [facility] CBC WITH DIFF 2022-07-27 Nicholas Charles of 08:05:00 [facility] BASIC METABOLIC PANEL (NA, K, 2022-07-27 Araceli, Nicholas Hu iversity of CL, CO2, GLUCOSE, BUN, 08:05:00 [place] [facility] CREATININE, CA) Branch MAGNESIUM 2022-07-27 Araceli, [facility] of 08:05:00 [facility] LIPID PANEL ([id number])(TOTAL 2022-07-27 Araceli, [facility] sity of CHOLESTEROL, TRIGLYCERIDES, HDL) 08:05:00 [facility] LIPASE 2022-07-27 [place], [facility] of 08:05:00 [facility] LIPASE 2022-07-27 [place], [facility] of 08:05:00 [facility] MAGNESIUM 2022-07-27 Araceli, [facility] of 08:05:00 [facility] BASIC METABOLIC PANEL (NA, K, 2022-07-27 Araceli, Nicholas Hu iversity of CL, CO2, GLUCOSE, BUN, 08:05:00 [place] [facility] CREATININE, CA) [place] LIPID PANEL ([id number])(TOTAL 2022-07-27 Araceli, [facility] of CHOLESTEROL, TRIGLYCERIDES, HDL) 08:05:00 [facility] CBC WITH DIFF 2022-07-27 Araceli, [facility] of 08:05:00 [facility] US ABDOMEN LIMITED 2022-07-27 Araceli, [facility] of 03:31:00 [facility] US ABDOMEN LIMITED 2022-07-27 Araceli, [facility] of 03:31:00 [facility] ACTIVATED PARTIAL THRMPLAS CHARLES 2022-07-26 Araceli, Nicholas Galvez nivmoeity of 22:23:00 [facility] C-REACTIVE PROTEIN 2022-07-26 Araceli, [facility] of 22:23:00 [facility] PHOSPHORUS 2022-07-26 Araceli, [facility] of 22:23:00 [facility] C-REACTIVE PROTEIN 2022-07-26 Araceli, [facility] of 22:23:00 [facility] HEPATIC FUNCTION PANEL ([id number]) 2022-07-26 Nicholas Charles niversity of (ALB,T.PRO,BILI 22:23:00 [facility],BU/BC,ALT,AST,ALK PHOS) [place] BASIC METABOLIC PANEL (NA, K, 2022-07-26 Araceli, Nicholas Un iversity of CL, CO2, GLUCOSE, BUN, 22:23:00 [place] [facility] CREATININE, CA) Branch CBC WITH DIFF 2022-07-26 Araceli Nicholaslatesha Fall of 22:23:00 [facility] PROTHROMBIN TIME / INR 2022-07-26 Araceli, [facility] y of 22:23:00 [facility] ACTIVATED PARTIAL THRMPLAS CHARLES 2022-07-26 Nicholas Charles U niversity of 22:23:00 [facility] CBC WITH DIFF 2022-07-26 Araceli [facility] of 22:23:00 [facility] BASIC METABOLIC PANEL (NA, K, 2022-07-26 Nicholas Charles Un iversity of CL, CO2, GLUCOSE, BUN, 22:23:00 [place] [facility] CREATININE, CA) Branch HEPATIC FUNCTION PANEL ([id number]) 2022-07-26 Nicholas Charles niversity of (ALB,T.PRO,BILI 22:23:00 [facility],BU/BC,ALT,AST,ALK PHOS) Branch PHOSPHORUS 2022-07-26 Araceli [facility] of 22:23:00 [facility] PROTHROMBIN TIME / INR 2022-07-26 Araceli, [facility] y of 22:23:00 [facility] XR CHEST 1 VW 2022-07-26 Araceli, [facility] of 21:45:00 [facility] XR CHEST 1 VW 2022-07-26 Araceli, [facility] of 21:45:[address] [facility] [address] ABDOMEN PELVIS W CONTRAST 2022-07-10 Zuniga, Chris Uni versity of 00:27:[address] [facility] [address] ABDOMEN PELVIS W CONTRAST 2022-07-10 Jan Zunigao Uni versity of 00:27:49 [facility] CBC WITH DIFF 2022-07-09 Britta [facility] of 22:40:00 [facility] CBC WITH DIFF 2022-07-09 Casie Callejas of 22:40:00 [facility] LIPASE 2022-07-09 Britta [facility] of 22:32:00 [facility] COMP. METABOLIC PANEL ([id number]) 2022-07-09 Casie Callejas iversity of 22:32:00 [facility] LIPASE 2022-07-09 Casie Callejas of 22:32:00 [facility] COMP. METABOLIC PANEL ([id number]) 2022-07-09 Casie Callejas iversity of 22:32:00 [facility] EMERGENCY SERVICES AGREEMENTS 2022-07-09 Doctor Unassigned, University AND AUTHORIZATIONS 05:01:00 [place] [facility] CBC WITH DIFF 2022-06-[address] [facility] of 09:50:00 [facility] BASIC METABOLIC PANEL (NA, K, 2022-06-27 Cherie Schmidt Un iversity of CL, CO2, GLUCOSE, BUN, 09:50:00 [place] [facility] CREATININE, CA) Branch MAGNESIUM 2022-06-[address] [facility] of 09:50:00 [facility] MAGNESIUM 2022-06-[address] [facility] of 09:50:00 [facility] BASIC METABOLIC PANEL (NA, K, 2022-06-27 Cherie Schmidt Un iversity of CL, CO2, GLUCOSE, BUN, 09:50:00 [place] [facility] CREATININE, CA) Branch CBC WITH DIFF 2022-06-[address] [facility] of 09:50:[address] [facility] [address] CHEST PULMONARY ANGIOGRAM 2022-06-26 [facility] of 15:22:27 [facility] CBC WITH DIFF 2022-06-[address] [facility] of 11:30:00 [facility] BASIC METABOLIC PANEL (NA, K, 2022-06-26 Cherie Schmidt Un iversity of CL, CO2, GLUCOSE, BUN, 11:30:00 [place] [facility] CREATININE, CA) Branch MAGNESIUM 2022-06-[address] [facility] of 11:30:00 [facility] D-DIMER 2022-06-26 Brayan, [facility] of 11:30:00 [facility] TROPONIN I 2022-06-26 Cruz Galo Lydia of 11:30:00 [facility] N-TERMINAL PRO-BNP 2022-06-26 Cruz Galo Lydia of 11:30:00 [facility] MAGNESIUM 2022-06-[address] [facility] of 11:30:00 [facility] TROPONIN I 2022-06-26 Cruz Galo Lydia of 11:30:00 [facility] BASIC METABOLIC PANEL (NA, K, 2022-06-26 Cherie Schmidt iversity of CL, CO2, GLUCOSE, BUN, 11:30:00 [facility] ical CREATININE, CA) Branch CBC WITH DIFF 2022-06-26 [facility] of 11:30:00 [facility] D-DIMER 2022-06-26 [facility] of 11:30:00 [facility] N-TERMINAL PRO-BNP 2022-06-26 Iraj [facility] of 11:30:00 [facility] HB ECG ROUTINE & RHYTHM STRIP 2022-06-26 Marin Long Un iversity of 11:04:45 [facility] HB ECG ROUTINE & RHYTHM STRIP 2022-06-26 Aldo Longus Un iversity of 11:04:45 [facility] XR CHEST 1 VW 2022-06-26 Eversurya [facility] of 10:55:00 [facility] XR KUB 2022-06-26 [place] [place] [facility], [facility] of 10:55:00 [facility] XR CHEST 1 VW 2022-06-26 Eversurya [facility] of 10:55:00 [facility] XR KUB 2022-06-26 [facility] of 10:55:00 [facility] HEPATIC FUNCTION PANEL ([id number]) 2022-06-25 Jose Ramon Johnson U niversity of (ALB,T.PRO,BILI 23:02:00 [facility] T,BU/BC,ALT,AST,ALK PHOS) [place] HEPATIC FUNCTION PANEL ([id number]) 2022-06-25 Jose Ramon Johnson U niversity of (ALB,T.PRO,BILI 23:02:00 [place] [facility] T,BU/BC,ALT,AST,ALK PHOS) Branch POCT GLUCOSE (AUTOMATED) 2022-06-25 Heath Dia [facility] ersity of 20:13:00 [facility] POCT GLUCOSE (AUTOMATED) 2022-06-25 Heath Dia [facility] ersity of 20:13:00 [facility] IR PLACEMENT ACCESS THRU BILIARY 2022-06-25 Cherie Schmidt Lydia of [place] PERCUTANEOUS NEW ACCESS 18:30:31 [facility] as [facility] BASIC METABOLIC PANEL (NA, K, 2022-06-24 Cherie Schmidt Un iversity of CL, CO2, GLUCOSE, BUN, 14:28:00 [place] [facility] CREATININE, CA) Branch MAGNESIUM 2022-06-24 Cherie Schmidt Lydia of 14:28:00 [facility] HEPATIC FUNCTION PANEL ([id number]) 2022-06-24 Jose Ramon Johnson U niversity of (ALB,T.PRO,BILI 14:28:00 [place] [facility] T,BU/BC,ALT,AST,ALK PHOS) Branch MAGNESIUM 2022-06-24 Cherie Schmidt Lydia of 14:28:00 [facility] HEPATIC FUNCTION PANEL ([id number]) 2022-06-24 Jose Ramon Johnson U niversity of (ALB,T.PRO,BILI 14:28:00 [place] [facility] T,BU/BC,ALT,AST,ALK PHOS) Branch BASIC METABOLIC PANEL (NA, K, 2022-06-24 Cherie Schmidt Un iversity of CL, CO2, GLUCOSE, BUN, 14:28:00 [place] [facility] CREATININE, CA) Branch MAGNESIUM 2022-06-24 Cherie Schmidt Lydia of 14:28:00 [facility] BASIC METABOLIC PANEL (NA, K, 2022-06-24 Cherie Schmidt Un iversity of CL, CO2, GLUCOSE, BUN, 14:28:00 [place] [facility] CREATININE, CA) Branch CBC WITH DIFF 2022-06-24 Cherie Schmidt Lydia of 10:11:00 [facility] CBC WITH DIFF 2022-06-24 Cherie Schmidt Lydia of 10:11:00 [facility] CBC WITH DIFF 2022-06-[address] [facility] of 10:11:00 [facility] BASIC METABOLIC PANEL (NA, K, 2022-06-23 Cherie Schmidt Un iversity of CL, CO2, GLUCOSE, BUN, 21:07:00 [place] [facility] CREATININE, CA) Branch PROTHROMBIN TIME / INR 2022-06-23 Cherie Schmidt [facility] y of 21:07:00 [facility] HEPATIC FUNCTION PANEL ([id number]) 2022-06-23 Jose Ramon Johnson U niversity of (ALB,T.PRO,BILI 21:07:00 [place] [facility] T,BU/BC,ALT,AST,ALK PHOS) Branch HEPATIC FUNCTION PANEL ([id number]) 2022-06-23 Jose Ramon Johnson U niversity of (ALB,T.PRO,BILI 21:07:00 [place] [facility] T,BU/BC,ALT,AST,ALK PHOS) Branch BASIC METABOLIC PANEL (NA, K, 2022-06-23 Cherie Schmidt Un iversity of CL, CO2, GLUCOSE, BUN, 21:07:00 [place] [facility] CREATININE, CA) Branch PROTHROMBIN TIME / INR 2022-06-23 Cherie Schmidt Univers y of 21:07:00 [facility] HEPATIC FUNCTION PANEL ([id number]) 2022-06-23 Jose Ramon Johnson U niversity of (ALB,T.PRO,BILI 21:07:00 [place] [facility] T,BU/BC,ALT,AST,ALK PHOS) Branch BASIC METABOLIC PANEL (NA, K, 2022-06-23 Cherie Schmidt Un iversity of CL, CO2, GLUCOSE, BUN, 21:07:00 [place] [facility] CREATININE, CA) Branch PROTHROMBIN TIME / INR 2022-06-23 Cherie Schmidt [facility] y of 21:07:00 [facility] INTUBATION 2022-06-23 Tesfaye [facility] of 15:00:00 [facility] ENDOSCOPIC RETROGRADE 2022-06-23 [facility] ty of CHOLANGIOPANCRETOGRAPHY 14:40:00 [facility] dical Branch ENDOSCOPIC RETROGRADE 2022-06-23 [facility] ty of CHOLANGIOPANCRETOGRAPHY 14:40:00 [facility] dical Branch ENDOSCOPIC RETROGRADE 2022-06-23 [facility] ty of CHOLANGIOPANCRETOGRAPHY 14:40:00 [facility] dictn Branch ERCP (ENDO) 2022-06-23 [facility] of 14:30:10 [facility] ERCP (ENDO) 2022-06-23 [facility] of 14:30:10 [facility] PROTHROMBIN TIME / INR 2022-06-23 Cruz Galoit y of 10:05:00 [facility] COMP. METABOLIC PANEL ([id number]) 2022-06-23 Cruz Galo iversity of 10:05:00 [facility] CBC WITH DIFF 2022-06-23 Cruz Galo of 10:05:00 [facility] COMP. METABOLIC PANEL ([id number]) 2022-06-23 Cruz Galo Un iversity of 10:05:00 [facility] CBC WITH DIFF 2022-06-23 Cruz Galo Lydia of 10:05:00 [facility] PROTHROMBIN TIME / INR 2022-06-23 GaloCruz [facility] y of 10:05:00 [facility] COMP. METABOLIC PANEL ([id number]) 2022-06-23 Cruz Galo Un iversity of 10:05:00 [facility] CBC WITH DIFF 2022-06-23 Cruz Galo Lydia of 10:05:00 [facility] PROTHROMBIN TIME / INR 2022-06-23 IrajCruz [facility] y of 10:05:00 [facility] CBC WITH DIFF 2022-06-22 [facility] of 06:07:00 [facility] BASIC METABOLIC PANEL (NA, K, 2022-06-22 Brayan, [facility] Un iversity of CL, CO2, GLUCOSE, BUN, 06:07:00 [place] [facility] CREATININE, CA) Branch MAGNESIUM 2022-06-22 [facility] of 06:07:00 [facility] HEPATIC FUNCTION PANEL ([id number]) 2022-06-22 April Cardoza U niversity of (ALB,T.PRO,BILI 06:07:00 [place] [facility] T,BU/BC,ALT,AST,ALK PHOS) Branch MAGNESIUM 2022-06-22 [facility] of 06:07:00 [facility] HEPATIC FUNCTION PANEL ([id number]) 2022-06-22 April Cardoza U niversity of (ALB,T.PRO,BILI 06:07:00 [place] [facility] T,BU/BC,ALT,AST,ALK PHOS) Branch BASIC METABOLIC PANEL (NA, K, 2022-06-22 Brayan, [facility] Un iversity of CL, CO2, GLUCOSE, BUN, 06:07:00 [place] [facility] CREATININE, CA) Branch CBC WITH DIFF 2022-06-[address] [facility] of 06:07:00 [facility] MAGNESIUM 2022-06-22 [facility] 06:07:00 [facility] HEPATIC FUNCTION PANEL ([id number]) 2022-06-22 April Cardoza U niversity of (ALB,T.PRO,BILI 06:07:00 [place] [facility] T,BU/BC,ALT,AST,ALK PHOS) Branch BASIC METABOLIC PANEL (NA, K, 2022-06-22 Cherie Schmidt Un iversity of CL, CO2, GLUCOSE, BUN, 06:07:00 [place] [facility] CREATININE, CA) Branch CBC WITH DIFF 2022-06-22 Cherie Schmidt Lydia of 06:07:00 [facility] HEPAT[facility]IARY 2022-06-21 [place], [facility] of 22:00:00 [facility] HEPATOBILIARY 2022-06-21 [place], [facility] of 22:00:00 [facility] HEPATOBILIARY 2022-06-21 [place], [facility] of 22:00:00 [facility] PROTHROMBIN TIME / INR 2022-06-21 [place] 10:51:00 [facility] CBC WITH DIFF 2022-06-21 [place], [facility] of 10:51:00 [facility] BASIC METABOLIC PANEL (NA, K, 2022-06-21 Branden Tim Un iversity of CL, CO2, GLUCOSE, BUN, 10:51:00 [place] [facility] CREATININE, CA) Branch HEPATIC FUNCTION PANEL ([id number]) 2022-06-21 Branden Tim U niversity of (ALB,T.PRO,BILI 10:51:00 [place] [facility] T,BU/BC,ALT,AST,ALK PHOS) Branch HEPATIC FUNCTION PANEL ([id number]) 2022-06-21 Branden Tim U niversity of (ALB,T.PRO,BILI 10:51:00 [place] [facility] T,BU/BC,ALT,AST,ALK PHOS) Branch BASIC METABOLIC PANEL (NA, K, 2022-06-21 Branden Tim Un iversity of CL, CO2, GLUCOSE, BUN, 10:51:00 [place] [facility] CREATININE, CA) Branch CBC WITH DIFF 2022-06-21 Branden Tim Lydia of 10:51:00 [facility] PROTHROMBIN TIME / INR 2022-06-21 [place], Branden [facility] y of 10:51:00 [facility] HEPATIC FUNCTION PANEL ([id number]) 2022-06-21 Branden Tim U niversity of (ALB,T.PRO,BILI 10:51:00 [place] [facility] T,BU/BC,ALT,AST,ALK PHOS) Branch BASIC METABOLIC PANEL (NA, K, 2022-06-21 Branden Tim Un iversity of CL, CO2, GLUCOSE, BUN, 10:51:00 [place] [facility] CREATININE, CA) Branch CBC WITH DIFF 2022-06-21 Branden Tim of 10:51:00 [facility] Center PROTHROMBIN TIME / INR 2022-06-21 Branden Tim [facility] of 10:51:00 [facility] CBC WITH DIFF 2022-06-20 Michelle Grande Lydia of 06:45:00 [facility] COMP. METABOLIC PANEL ([id number]) 2022-06-20 Michelle Grande Un iversity of 06:45:00 [facility] PROTHROMBIN TIME / INR 2022-06-20 Michelle Grande [facility] y of 06:45:00 [facility] COMP. METABOLIC PANEL ([id number]) 2022-06-20 Michelle Grnade Un iversity of 06:45:00 [facility] CBC WITH DIFF 2022-06-20 Michelle Grande Lydia of 06:45:00 [facility] PROTHROMBIN TIME / INR 2022-06-20 Michelle Grande [facility] y of 06:45:00 [facility] COMP. METABOLIC PANEL ([id number]) 2022-06-20 Michelle Grande Un iversity of 06:45:00 [facility] CBC WITH DIFF 2022-06-20 Michelle Grande of 06:45:00 [facility] PROTHROMBIN TIME / INR 2022-06-20 Michelle Grande [facility] y of 06:45:00 [facility] HEPATITIS C VIRUS (HCV) BY 2022-06-19 Michelle Grande Unive rsity of QUANTITATIVE NAAT 10:56:00 [facility] BASIC METABOLIC PANEL (NA, K, 2022-06-19 Michelle Grande Un iversity of CL, CO2, GLUCOSE, BUN, 10:56:00 [place] [facility] CREATININE, CA) Branch MAGNESIUM 2022-06-19 Michelle Grande of 10:56:00 [facility] MAGNESIUM 2022-06-19 Michelle Grande of 10:56:00 [facility] BASIC METABOLIC PANEL (NA, K, 2022-06-19 Michelle Grande Un iversity of CL, CO2, GLUCOSE, BUN, 10:56:00 [place] [facility] CREATININE, CA) Branch HEPATITIS C VIRUS (HCV) BY 2022-06-19 Michelle Grande rsity of QUANTITATIVE NAAT 10:56:00 [facility] MAGNESIUM 2022-06-19 Michelle Grande [facility] of 10:56:00 [facility] BASIC METABOLIC PANEL (NA, K, 2022-06-19 Michelle Grande Un iversity of CL, CO2, GLUCOSE, BUN, 10:56:00 [place] [facility] CREATININE, CA) Branch HEPATITIS C VIRUS (HCV) BY 2022-06-19 Michelle Grande rsity of QUANTITATIVE NAAT 10:56:[address] [facility] [address] ANGIOGRAM ABDOMEN/PELVIS 2022-06-19 Michelle Grande ersity of 08:05:[address] [facility] [address] ANGIOGRAM ABDOMEN/PELVIS 2022-06-19 Michelle Grande [facility] ersity of 08:05:[address] [facility] [address] ANGIOGRAM ABDOMEN/PELVIS 2022-06-19 [facility]:05[facility]28 [facility] MR ABDOMEN W WO CONTRAST MRCP 2022-06-18 Cruz Galo Un iversity of 09:58:00 [facility] MR ABDOMEN W WO CONTRAST MRCP 2022-06-18 Cruz Galo Un iversity of 09:58:00 [facility] MR ABDOMEN W WO CONTRAST MRCP 2022-06-18 Cruz Galo Un iversity of 09:58:00 [facility] BLOOD CULTURE SCREEN 2022-06-18 Cruz Galo of 06:57:00 [facility] BLOOD CULTURE SCREEN 2022-06-18 Cruz Galo of 06:57:00 [facility] BLOOD CULTURE SCREEN 2022-06-18 Cruz Galo of 06:57:00 [facility] URINALYSIS 2022-06-17 Yoni Mckee Lydia of 22:32:00 [facility] URINALYSIS 2022-06-17 Rylee [facility] of 22:32:00 [facility] URINALYSIS 2022-06-17 DelliYoni wyman of 22:32:00 [facility] CT ABDOMEN PELVIS W CONTRAST 2022-06-17 Yoni Mckee Uni versity of 22:20:00 [facility] CT ABDOMEN PELVIS W CONTRAST 2022-06-17 Yoni Mckee Uni versity of 22:20:00 [facility] CT ABDOMEN PELVIS W CONTRAST 2022-06-17 Yoni Mckee Uni versity of 22:20:00 [facility] LACTIC ACID WHOLE BLOOD 2022-06-17 Rylee, Yoni [facility] ty of 21:18:00 [facility] LACTIC ACID WHOLE BLOOD 2022-06-17 Rylee, [facility] ty of 21:18:00 [facility] LACTIC ACID WHOLE BLOOD 2022-06-17 Rylee, [facility] ty of 21:18:00 [facility] LAB ONLY COVID INTERPRETATION 2022-06-17 Yoni Mckee iversity of 20:04:00 [facility] CBC WITH DIFF 2022-06-17 Yoni Mckee Lydia of 20:04:00 [facility] BASIC METABOLIC PANEL (NA, K, 2022-06-17 Yoni Mckee iversity of CL, CO2, GLUCOSE, BUN, 20:04:00 [facility] ical CREATININE, CA) Branch HEPATIC FUNCTION PANEL ([id number]) 2022-06-17 Ynoi Mckee niversity of (ALB,T.PRO,BILI 20:04:00 [facility] T,BU/BC,ALT,AST,ALK PHOS) Branch LIPASE 2022-06-17 Yoni Mckee of 20:04:00 [facility] TROPONIN I 2022-06-17 Yoni Mckee of 20:04:00 [facility] N-TERMINAL PRO-BNP 2022-06-17 Yoni Mckee of 20:04:00 [facility] COVID-19 (ID NOW RAPID TESTING) 2022-06-17 Yoni Mckee of 20:04:00 [facility] GALV ONLY - INFLUENZA A B RSV 2022-06-17 Yoni Mckee iversity of PCR 20:04:00 [facility] LAB ONLY COVID INTERPRETATION 2022-06-17 Yoni Mckee iversity of 20:04:00 [facility] ALPHA FETOPROTEIN 2022-06-17 [facility] 20:04[facility]00 [facility] HEPATITIS B SURFACE ANTIBODY 2022-06-17 Michelle Grande Uni versity of 20:04:00 [facility] HEPATITIS B SURFACE ANTIGEN 2022-06-17 Harjinder [facility] ersity of 20:04:00 [facility] HEPATITIS A VIRUS ANTIBODY IGM 2022-06-17 Michelle Grande U niversity of 20:04:00 [facility] LIPASE 2022-06-17 Yoni Mckee Lydia of 20:04:00 [facility] TROPONIN I 2022-06-17 Yoni Mckee Lydia of 20:04:00 [facility] HEPATIC FUNCTION PANEL ([id number]) 2022-06-17 Yoni Mckee niversity of (ALB,T.PRO,BILI 20:04:00 [facility],BU/BC,ALT,AST,ALK PHOS) Branch BASIC METABOLIC PANEL (NA, K, 2022-06-17 Yoni Mckee iversity of CL, CO2, GLUCOSE, BUN, 20:04:00 [facility] ical CREATININE, CA) Branch ALPHA FETOPROTEIN 2022-06-17 [facility] 20:04:00 [facility] CBC WITH DIFF 2022-06-17 Yoni Mckee of 20:04:00 [facility] HEPATITIS B SURFACE ANTIBODY 2022-06-17 Michelle Grande Uni versity of 20:04:00 [facility] HEPATITIS B SURFACE ANTIGEN 2022-06-17 [facility]inder [facility] ersity of 20:04:00 [facility] HEPATITIS A VIRUS ANTIBODY IGM 2022-06-17 Michelle Grande U niversity of 20:04:00 [facility] GALV ONLY - INFLUENZA A B RSV 2022-06-17 Yoni Mckee Un iversity of PCR 20:04:00 [facility] N-TERMINAL PRO-BNP 2022-06-17 Yoni Mckee of 20:04:00 [facility] COVID-19 (ID NOW RAPID TESTING) 2022-06-17 Yoni Mckee of 20:04:00 [facility] LAB ONLY COVID INTERPRETATION 2022-06-17 Yoni Mckee iversity of 20:04:00 [facility] LIPASE 2022-06-17 Yoni Mckee of 20:04:00 [facility] TROPONIN I 2022-06-17 Yoni Mckee of 20:04:00 [facility] HEPATIC FUNCTION PANEL ([id number]) 2022-06-17 Yoni Mckee niversity of (ALB,T.PRO,BILI 20:04:00 [facility],BU/BC,ALT,AST,ALK PHOS) [place] BASIC METABOLIC PANEL (NA, K, 2022-06-17 Yoni Mckee iversity of CL, CO2, GLUCOSE, BUN, 20:04:00 [facility] ical CREATININE, CA) [place] ALPHA FETOPROTEIN 2022-06-17 [facility] 20:04:00 [facility] CBC WITH DIFF 2022-06-17 Yoni Mckee of 20:04:00 [facility] HEPATITIS B SURFACE ANTIBODY 2022-06-17 [facility] vers[facility] of 20:04:00 [facility] HEPATITIS B SURFACE ANTIGEN 2022-06-17 Har[facility]inder [facility] ersity of 20:04:00 [facility] HEPATITIS A VIRUS ANTIBODY IGM 2022-06-17 Michelle Grande niversity of 20:04:00 [facility] GALV ONLY - INFLUENZA A B RSV 2022-06-17 Yoni Mckee iversity of PCR 20:04:00 [facility] N-TERMINAL PRO-BNP 2022-06-17 Yoni Mckee of 20:04:00 [facility] COVID-19 (ID NOW RAPID TESTING) 2022-06-17 Yoni Mckee of 20:04:00 [facility] HB ECG ROUTINE & RHYTHM STRIP 2022-06-17 Yoni Mckee iversity of 19:51:18 [facility] HB ECG ROUTINE & RHYTHM STRIP 2022-06-17 Yoni Mckee iversity of 19:51:18 [facility] HB ECG ROUTINE & RHYTHM STRIP 2022-06-17 Yoni Mckee iversity of 19:51:18 [facility] CONSENT/REFUSAL FOR DIAGNOSIS 2022-06-17 Doctor Unassigned, Lydia of AND TREATMENT 19:29:59 [facility] CONSENT/REFUSAL FOR DIAGNOSIS 2022-06-17 Doctor Unassigned, [facility] AND TREATMENT 19:29:59 [facility] CONSENT/REFUSAL FOR DIAGNOSIS 2022-06-17 Doctor Unassigned, [facility] AND TREATMENT 19:29:59 [facility] HOSPITAL ADMISSION 2022-06-17 Doctor Unassigned, [facility] 05:01:00 [facility] ENDOSCOPIC RETROGRADE 2022-06-[address] [facility] CHOLANGIOPANCREATOGRAPHY, WITH 11:30:00 M [facility] STENT REMOVAL XR ABDOMEN/KUB 1 VIEW PORTABLE 2022-06-08 Nuvia Burton [facility] 17:47:00 [facility] 2D ECHO W/ DOPPLER (CW/PW/COLOR) 2022-06-[address] [facility] 13:46:[address] [facility] [address] ABDOMEN/PELVIS WITH IV 2022-06-08 Jaqueline Peck [facility] CONTRAST 09:50:00 [facility] XR CHEST 1 VIEW PORTABLE / 2022-06-07 Miguel A Doug [facility] BEDSIDE 14:42:00 [facility] SARS-COV2/INFLUENZA/RSV RT-PCR 2022-06-[address] [facility] 13:30:00 [facility] PERMANENT LAB REPORT - SCAN 2022-06-07 Provider, Francisco [facility] 00:00:00 [facility] CBC W/PLT COUNT & AUTO 2022-05-[address] [facility] DIFFERENTIAL 04:18:00 [facility] COMPREHENSIVE METABOLIC PANEL 2022-05-[address] [facility] 04:18:00 [facility] CBC W/PLT COUNT & AUTO 2022-05-[address] [facility] DIFFERENTIAL 04:18:00 [facility] Center CBC W/PLT COUNT & AUTO 2022-05-[address] [facility] DIFFERENTIAL 03:21:00 [facility] COMPREHENSIVE METABOLIC PANEL 2022-05-[address] [facility] 03:21:00 [facility] Center CBC W/PLT COUNT & AUTO 2022-05-[address] [facility] DIFFERENTIAL 03:21:00 [facility] BODY FLUID CULTURE + GRAM STAIN 2022-05-[address] [facility] 16:45:00 [facility] IR TUNNELED DRAINAGE CATHETER 2022-05-[address] [facility] PLACEMENT 16:22:00 [facility] CBC W/PLT COUNT & AUTO 2022-05-[address] [facility] DIFFERENTIAL 05:15:00 [facility] COMPREHENSIVE METABOLIC PANEL 2022-05-[address] [facility] 05:15:00 [facility] PROTHROMBIN TIME/INR 2022-05-[address] [facility] 05:15:00 [facility] CBC W/PLT COUNT & AUTO 2022-05-[address] [facility] DIFFERENTIAL 05:15:00 [facility] SARS-COV2/RT-PCR ([facility] & REF 2022-05-[address] [facility] LABS) 04:37:00 [facility] TYPE AND SCREEN, AUTOMATED 2022-05-15 [facility] 01:25:00 [facility] BASIC METABOLIC PANEL 2022-05-[address] [facility] 01:24:00 [facility] HEPATIC FUNCTION PANEL 2022-05-[address] [facility] 01:24:00 [facility] PROTHROMBIN TIME/INR 2022-05-[address] [facility] 01:24:00 [facility] PHOSPHORUS 2022-05-[address] [facility] 01:24:00 [facility] MAGNESIUM 2022-05-[address] [facility] 01:24:00 [facility] CBC W/PLT COUNT & AUTO 2022-05-[address] [facility] DIFFERENTIAL 01:24:00 [facility] CBC W/PLT COUNT & AUTO 2022-05-[address] [facility] DIFFERENTIAL 01:24:00 [facility] BASIC METABOLIC PANEL 2022-05-[address] [facility] 03:30:00 [facility] CBC W/PLT COUNT & AUTO 2022-05-[address] [facility] DIFFERENTIAL 03:30:00 [facility] MAGNESIUM 2022-05-[address] [facility] 03:30:00 [facility] HEPATIC FUNCTION PANEL 2022-05-[address] [facility] 03:30:00 [facility] LIPID PANEL 2022-05-[address] [facility] 03:30:00 [facility] CBC W/PLT COUNT & AUTO 2022-05-[address] [facility] DIFFERENTIAL 03:30:[address] [facility] [address] ABDOMEN/PELVIS WITH IV 2022-05-[address] [facility] CONTRAST 19:08:00 [facility] REPORT OF PROCEDURE - ENDOSCOPY 2022-05-[address] [facility] URL 14:45:00 [facility] ERCP, WITH SPHINCTEROTOMY 2022-05-[address] [facility] 08:00:00 [facility] ENDOSCOPIC RETROGRADE 2022-05-[address] [facility] CHOLANGIOPANCREATOGRAPHY, WITH 08:00:00 [facility] BILE DUCT STENT INSERTION ERCP, WITH BALLOON SWEEP OF BILE 2022-05-[address] [facility] DUCTS 08:00:00 [facility] PROCEDURE W/ C-ARM 2022-05-[address] [facility] 08:00:00 [facility] CBC (HEMOGRAM ONLY) 2022-05-[address] [facility] 03:20:00 [facility] COMPREHENSIVE METABOLIC PANEL 2022-05-[address] [facility] 03:20:00 [facility] SARS-COV2/RT-PCR ([facility] & REF 2022-05-[address] [facility]) 17:00:00 [facility] Plan of Care Planned Activity Planned Date Details Comments Source Future Scheduled 2027-05-11 Lipid panel (procedure) [facility] 00:00:00 [code = 49999053] Medical Ce nter Future Scheduled 2027-05-11 Lipid panel (procedure) [facility] 00:00:00 [code = 46068164] Medical Ce nter Future Scheduled 2027-05-11 Lipid panel (procedure) [facility] 00:00:00 [code = 64045962] Medical Ce nter Future Scheduled 2027-05-11 Lipid panel (procedure) [facility] 00:00:00 [code = 45221981] Medical Ce nter Future Scheduled 2027-05-11 Lipid panel (procedure) [facility] 00:00:00 [code = 50406869] Medical Ce nter Future Scheduled 2027-05-11 Lipid panel (procedure) [facility] 00:00:00 [code = 35444265] Medical Ce nter Future Scheduled 2023-05-10 Tobacco [...] [facility]ukes Test 00:00:00 (Season Ended) [code = [facility] INFLUENZA VACCINE (Season Ended)] Future [...] Lukes Test 00:00:00 [code = CT Colonography [facility] (combo)] Future Scheduled 1959 Screening for malignant [facility] 00:00:00 neoplasm of colon Medical Ce nter (procedure) [code = 206037399] Future Scheduled 1959 Screening for malignant [facility] Test 00:00:00 neoplasm of colon Medical Ce nter (procedure) [code = 751310520] Future Scheduled 1959 Screening for malignant [facility] Test 00:00:00 neoplasm of colon Medical Ce nter (procedure) [code = 207841945] Future Scheduled 1959 Screening for malignant [facility] Test 00:00:00 neoplasm of colon Medical Ce nter (procedure) [code = 377485485] Future Scheduled 1959 Sigmoidoscopy [code = [facility] Sigmoidoscopy] Medical Cente r Future Scheduled 1959 CT Colonography (combo) [facility] 00:00:00 [code = CT Colonography [facility] (combo)] Future Scheduled 1959 Screening for malignant [facility] 00:00:00 neoplasm of colon Medical Ce nter (procedure) [code = 873004711] Future Scheduled 1959 Screening for malignant [facility] 00:00:00 neoplasm of colon Medical Ce nter (procedure) [code = 258638359] Future Scheduled 1959 Screening for malignant [facility] 00:00:00 neoplasm of colon Medical Ce nter (procedure) [code = 564249831] Future Scheduled 1959 Screening for malignant [facility] 00:00:00 neoplasm of colon Medical Ce nter (procedure) [code = 777909196] Future Scheduled 1959 Sigmoidoscopy [code = [facility] 00:00:00 Sigmoidoscopy] Medical Cente r Future Scheduled 1959 CT Colonography (combo) [facility] 00:00:00 [code = CT Colonography [facility] (combo)] Future Scheduled 1959 Screening for malignant [facility] 00:00:00 neoplasm of colon Medical Ce nter (procedure) [code = 744892746] Future Scheduled 1959 Screening for malignant [facility] 00:00:00 neoplasm of colon Medical Ce nter (procedure) [code = 540344929] Future Scheduled 1959 Screening for malignant [facility] 00:00:00 neoplasm of colon Medical Ce nter (procedure) [code = 190264672] Future Scheduled 1959 Screening for malignant [facility] 00:00:00 neoplasm of colon Medical Ce nter (procedure) [code = 361967617] Future Scheduled 1959 Sigmoidoscopy [code = [facility] 00:00:00 Sigmoidoscopy] Medical Cente r Future Scheduled 1959 CT Colonography (combo) [facility] 00:00:00 [code = CT Colonography [facility] (combo)] Future Scheduled 1959 Screening for malignant [facility] 00:00:00 neoplasm of colon Medical Ce nter (procedure) [code = 124838280] Future Scheduled 1959 Screening for malignant [facility] 00:00:00 neoplasm of colon Medical Ce nter (procedure) [code = 747810542] Future Scheduled 1959 Screening for malignant [facility] 00:00:00 neoplasm of colon Medical Ce nter (procedure) [code = 180583749] Future Scheduled 1959 Screening for malignant [facility] 00:00:00 neoplasm of colon Medical Ce nter (procedure) [code = 040823788] Future Scheduled 1959 Sigmoidoscopy [code = [facility] 00:00:00 Sigmoidoscopy] Medical Arlenee r Future Scheduled 1959 CT Colonography (combo) [facility] 00:00:00 [code = CT Colonography [facility] (combo)] Future Scheduled 1959 Screening for malignant [facility] 00:00:00 neoplasm of colon Medical Ce nter (procedure) [code = 156047749] Future Scheduled 1959 Screening for malignant [facility] 00:00:00 neoplasm of colon Medical Ce nter (procedure) [code = 448950662] Future Scheduled 1959 Screening for malignant [facility] 00:00:00 neoplasm of colon Medical Ce nter (procedure) [code = 097869241] Future Scheduled 1959 Screening for malignant [facility] 00:00:00 neoplasm of colon Medical Ce nter (procedure) [code = 283134461] Future Scheduled 1959 Sigmoidoscopy [code = [facility] 00:00:00 Sigmoidoscopy] Medical Cente r Future Scheduled 1959 CT Colonography (combo) [facility] 00:00:00 [code = CT Colonography [facility] (combo)] Future Scheduled 1959 Screening for malignant [facility] 00:00:00 neoplasm of colon Medical Ce nter (procedure) [code = 727255084] Future Scheduled 1959 Screening for malignant [facility] Test 00:00:00 neoplasm of colon Medical Ce nter (procedure) [code = 317585411] Future Scheduled 1959 Screening for malignant [facility] 00:00:00 neoplasm of colon Medical Ce nter (procedure) [code = 006500269] Future Scheduled 1959 Screening for malignant [facility] 00:00:00 neoplasm of colon Medical Ce nter (procedure) [code = 851431273] Future Scheduled 1959 Sigmoidoscopy [code [facility] 00:[facility] Sigmoidoscopy] Medical [facility] Encounters Start End Encounter Admission Attending Care Care Encounter Source Date/Time Date/Time Type Type Clinicians Facility Department ID 2022-05-14 [facility] [id number] [facility] 12:12:34 RADHA 2022-12-30 2022-12-30 Telephone Chris Brown 1.2.840.114 [id number] Univers 00:00:00 00:00:00 DEMI 350.1.13.10 it y of [address]686 Bandar as [phone] [facility] 009 Branch 2022-11-29 2022-11-30 Outpatient X [facility] [id number] Univers 14:07:00 18:00:00 HEIDI ity of [facility] 2022-11-29 2022-11-30 Emergency BillyDeniz ryan 1.2.840 .114 [id number] Univers 14:07:00 18:00:00 Heidi Lugo 350.1.13.10 ity [place] [address].7.2.686 Bandar as [id number] [facility] 092 Branch 2022-10-22 2022-10-22 Orders Doctor JASON 1.2.840.114 [id number] [facility] 00:00:00 00:00:00 Only UnassignedDEMI 350.1.13.10 ity of [place] [facility] 4.2.7.2.686 Bandar as [id number] [facility] 009 Branch 2022-09-27 2022-09-27 Refdwayne Hendricksonsuzanne [facility] 1.2.840.114 [id number] Univers 00:00:00 00:00:00 Hamza PRIMARY 350.1.13.10 [place] [facility] [id number] [place] dical 390 Branch 2022-09-25 2022-09-25 Orders Doctor JASON 1.2.840.114 [id number] Univers 00:00:00 00:00:00 Only Unassigned, DEMI 350.1.13.10 ity of [place] [facility] 4.2.7.2.686 Bandar as [id number] [facility] 009 Branch 2022-08-17 2022-08-17 Orders Doctor JASON 1.2.840.114 [id number] Univers 00:00:00 00:00:00 Only Unassigned, DEMI 350.1.13.10 ity of [place] [facility] 4.2.7.2.686 Band[place] as [id number] [facility] 009 Branch 2022-08-09 2022-08-09 Transition MADHU Hutchison 1.2.840.114 [id number] Univers 00:00:00 00:00:00 of Care Tessa GONZALEZ 350.1.13.10 [place] [id number] [facility] 403 Branch 2022-07-26 2022-08-07 Inpatient U MIKAYLA [facility] [id number] Univers 12:58:00 11:23:00 KHANG ity of [facility] 2022-07-26 2022-08-07 Hospital Chris Romero 1.2.840.1 [id number] Univers 12:58:00 11:23:00 Encounter Khang Linares 16856.1.1 ity of 3.104.2.7 [place] .3.334614 Medica l .8 Branch 2022-08-06 2022-08-[address] Jason 1.2.840.5 [id number] Univers 14:02:30 14:02:30 Event Branden 83163.1.1 ity of 3.104.2.7 [place] .3.269648 Medica l .8 [place] 2022-08-06 2022-08-06 Travel 1.2.840.1 1.2.102.617 [id number] Univers 00:00:00 00:00:00 70677.1.1 350.1.13.10 ity of 3.104.2.7 4[place].3.698 [place] .3.917949 084.8 Medica l .8 [place] 2022-07-29 2022-07-29 Case Petrmad, 1.2.840.2 [id number] Univers 00:00:00 00:00:00 Management Melvin 00627.1.1 i ty of 3.104.2.7 [place] .3.550466 Medica l .8 [place] 2022-07-28 2022-07-28 Anesthesia Darrell, 1.2.840.0 [id number] Univers 13:03:13 13:03:13 Event Yulissa Watts 36072.1.1 ity of 3.104.2.7 [place] .3.889780 Medica l .8 [place] 2022-07-26 2022-07-26 Outpatient Pollo [facility] [id number] Univers 00:00:00 00:00:00 HUNTER ity of [facility] 2022-07-26 2022-07-26 Travel 1.2.840.1 1.2.413.977 [id number] Univers 00:00:00 00:00:00 22312.1.1 350.1.13.10 ity of 3.104.2.7 4.[place]7.3.698 [place] .3.828853 084.8 Medica l .8 [place] 2022-07-12 2022-07-12 Outpatient R [facility] [id number] Univers 11:15:00 13:52:11 HEIDI itmitchel of [facility] 2022-07-12 2022-07-12 Office Heidi Lugo 1.2.840.1 [id number] Univers 11:15:00 13:52:11 Visit Faculty, Surgery Transplant 00809.1.1 ity of 3.104.2.7 [place] .3.296585 Medica l .8 Branch 2022-07-12 2022-07-12 Travel 1.2.840.1 1.2.573.187 [id number] Univers 00:00:00 00:00:00 31733.1.1 350.1.13.10 ity of 3.104.2.7 4.[place]7.3.698 [place] .3.460293 084.8 Medica l .8 Branch 2022-07-09 2022-07-09 Emergency X BRITTA WVLUÍS ERT [id number] Univers 16:28:00 22:52:00 CASIE ity of [facility] 2022-07-09 2022-07-09 Emergency Casie Callejas 1.2.840.1 [id number] Univers 16:28:00 22:52:00 Jose Elais Sheikh 37960.1.1 ity of 3.104.2.7 [place] .3.685771 Medica l .8 Branch 2022-07-09 2022-07-09 Travel 1.2.840.1 1.2.581.467 [id number] Univers 00:00:00 00:00:00 31731.1.1 350.1.13.10 ity of 3.104.2.7 4.[place].7.3.698 [place] .3.067435 084.8 Medica l .8 Branch 2022-06-29 2022-06-29 Transition Hutchison, 1.2.840.9 [id number] Univers 00:00:00 00:00:00 of Care Tessa 08953.1.1 i ty of 3.104.2.7 [place] .3.375562 Medica l .8 Branch 2022-06-17 2022-06-27 [facility] Yoni Mckee 1.2.840.1 [id number] Univers 14:25:00 14:20:00 Chris Slater 03685.1.1 ity of Jeselesliekeara Heath Jay 3.104.2.7 [place] .3.587727 Medica l .8 Branch 2022-06-17 2022-06-27 Inpatient X [facility] POINTE [id number] Univers 14:25:00 14:20:00 HEATH ity of [facility] 2022-06-25 2022-06-25 Anesthesia KavitacarisaGomez 1.2.840.7 [id number] Univers 09:41:00 13:15:00 Event Yulissa Ramírez 97766.1.1 ity of 3.104.2.7 [place] .3.303255 Medica l .8 Branch 2022-06-24 2022-06-24 Orders Josephine [facility] [id number] [facility] 00:00:00 00:00:00 Only [facility] 2022-06-23 2022-06-23 Anesthesia Botello, 1.2.840.7 [id number] [facility] 09:51:00 11:14:00 Event Larisa 79891.1.1 [place] .[place].9838[place] Medica l .8 Branch 2022-06-23 2022-06-23 Surgery Parupudi, 1.2.840.7 [id number] Univers 07:00:00 08:24:00 Goran 69748.1.1 ity of 3.104.2.7 [place] .3.149936 Medica l .8 Branch 2022-06-17 2022-06-17 Travel 1.2.840.1 1.2.721.303 [id number] Univers 00:00:00 00:00:00 98127.1.1 350.1.13.10 ity of 3.104.2.7 [place].3.698 [place]3.904[place] 084.8 Medica l .8 Branch 2022-06-07 2022-06-09 Inpatient UR [facility] Medicine [id number] [facility] 16:25:00 13:05:00 2022-06-07 2022-06-09 [facility] UR Casie Johnson [facility] [id number] [facility] 16:25:00 13:05:00 Encounter [facility] 2022-05-31 2022-05-31 Janell Bee [facility] [id number] [facility] 00:00:00 00:00:00 ion Cheryl [facility] 2022-05-14 2022-05-19 Inpatient ER CHRISTEN, SLE Inter Rad [id number] [facility] 23:13:00 18:01:00 [facility] 2022-05-14 2022-05-19 [facility] ER Ayo Price [facility] [id number] [facility] 23:13:00 18:01:00 Encounter [facility]id[facility] Pappas [facility] 2022-05-11 [facility] [id number] [facility] 13:34:00 16:33:00 SANDRA 2022-05-09 2022-05-11 [facility] UR Yue Moulton [facility] [id number] [facility] 13:34:00 16:33:00 Encounter Sandra Damico [facility] 2022-05-10 2022-05-10 Anesthesia David Michael [facility] [id number] 08:25:00 10:25:00 Event [facility] 2022-05-10 2022-05-10 Surgery Fam, [facility] [id number] [facility] 08:00:00 09:14:00 [facility] 2022-05-09 2022-05-09 Outpatient [facility] [id number] [facility] 13:34:00 23:59:00 Shadi 2022-01-07 2022-01-07 [id number] [facility] 14:41:00 14:41:00 Ashvin Ward [facility] 2018-10-23 2018-10-23 Outpatient Robert Castillo 23 [id number] Common 09:00:00 09:00:00 [facility] 2018-09-06 2018-09-06 Outpatient Robert Castillo 23 [id number] Common 16:13:00 16:13:00 t [facility] [address] Family - [facility] 2018-08-23 2018-08-23 Outpatient Robert Castillo 23 [id number] Common 14:30:00 14:30:00 t [facility] Sp[facility] t and Joint [facility] - [facility] 2018-08-22 2018-08-22 Outpatient Robert Castillo [id number] Common 15:00:00 15:00:00 t [facility] Sp[facility] t and Joint [facility] Results Test Description Test Time Test [...] See_Comment [Au tomated message] The system which [employer] nerated this result transmit loki reference range: [...] 34.2 g/dL 31.2-35.0 RDW-SD (test code = 98990-0) 40.7 fL 38.5-51.6 RDW-CV (test code = 788-0) 12.8 % 12.1-15.4 PLT (test code = 777-3) 147 See_Comment L [Au tomated message] The system which ge nerated this result transmit loki reference range: 150 - 32 8 10*3/?L. The reference range was not used to interpret th is result as normal/abnormal . MPV (test code = 59231-4) 10.3 fL 9.8-13.0 NRBC/100 WBC (test code = 0.0 See_Comment [ Automated message] The 8333475333) system which ge nerated this result transmit loki reference range: 0.0 - 10 .0 /100 WBCs. The reference r helen was not used to interpr et this result as normal/abnor mal. NRBC x10^3 (test code = See_Comment [Au tomated message] The 4553796807) system which ge nerated this result transmit loki reference range: 10*3/?L. The reference range was not u sed to interpret this result as normal/abnormal . GRAN MAT (NEUT) % (test code 54.7 % = 770-8) IMM GRAN % (test code = 0.90 % 4725837495) LYMPH % (test code = 736-9) 35.1 % MONO % (test code = 5905-5) 7.7 % EOS % (test code = 713-8) 0.9 % BASO % (test code = 706-2) 0.7 % GRAN MAT x10^3(ANC) (test 2.96 10*3/uL 1.99-6.95 code = 3385456813) IMM GRAN x10^3 (test code = 0.05 10*3/uL 0.00-0.06 4499107322) LYMPH x10^3 (test code = 1.90 10*3/uL 1.09-3.23 731-0) MONO x10^3 (test code = 0.42 10*3/uL 0.36-1.02 742-7) EOS x10^3 (test code = 0.05 10*3/uL 0.06-0.53 L 711-2) BASO x10^3 (test code = 0.04 10*3/uL 0.01-0.09 704-7) Lab Interpretation (test Abnormal code = 16462-1) [facility]. METABOLIC PANEL (60221)2022-11-29 22:31:04 Test Item Value Reference Range Interpretation Comments NA (test code = 139 mmol/L 135-145 7838968367) K (test code = 4.2 mmol/L 3.5-5.0 0270838290) CL (test code = 105 mmol/L 98-108 3237921347) CO2 TOTAL (test code = 25 mmol/L 23-31 5044335727) AGAP (test code = 9 2-16 5976110505) BUN (test code = 16 mg/dL 7-23 3682344220) GLUCOSE (test code = 83 mg/dL 70-110 0562554582) CREATININE (test code = 0.98 mg/dL 0.60-1.25 4994971718) TOTAL BILI (test code = 0.5 mg/dL 0.1-1.4 7209474309) CALCIUM (test code = 8.8 mg/dL 8.6-10.6 8815629110) T PROTEIN (test code = 6.7 g/dL 6.3-8.2 5713608065) ALBUMIN (test code = 4.2 g/dL 3.5-5.0 1212412424) ALK PHOS (test code = 434 U/L 34-122 H 1292022384) ALTv (test code = 101 U/L 5-50 H 1742-6) AST(SGOT) (test code = 85 U/L 13-40 H 7881018641) eGFR (test code = 77.5 mL/min/1.73m2 9580112149) JUAN DAVID (test code = JUAN DAVID) [...] tests). Lab Interpretation Abnormal (test code = 95010-2) [facility] [id number] 22:39:00 [facility] 1960 Sex: MFINAL REPORT Patient: Carrol Anne DDOB: 1960MRN: [id number] Accession number: [id number] CT, ABDOMEN \\T\\ PELVIS, WITH IV CONTRAST [...] collection. 4.Cholecystectomy with biliary stent. Signed: [facility] Verified Date/Time: 09/14/2022 22:39:56 Electronically signed by: YAQUELIN OSORIO MD on 310:39 PM2D Echo W/Doppler(CW/PW/Color)2022-09-01 10:41:09Ejection FractionSLE[facility]CHO [facility]Do[facility](CW/PW/Color) 2022-09-01 10:41:09Ejection [facility]LE[facility]Doppler(CW/PW/Color)2022-09-01 10:41:09[facility]jection [facility]V [id number] 23:45:12 Test Item Value Reference Interpretation Comments Range SARS-COV2/RT-PCR Negative Negative The SARS-Co V-2 (test code = target nucleic 98397-4) acids are not detected in thi s [...] (test code = [place] [address]-4) not detected in this specimen. Influenza B RT-PCR Negative Negative The Flu B target (test code = [place] [address]-0) not detected in this specimen. RSV by RT-PCR (test Negative Negative The RSV target code = 56492-9) nucleic acid s are not detected in [...] SARS-CoV-2/Flu/RSV by their healthcare provider. Results from [facility] Xpert Xpress SARS-CoV-2/Flu/RSV test should [...] the Act. Fact Sheet for Healthcare Providers:https://w Whisper/Docu ments/Xpert%20Xpres s%20SARS%20CoV-2/Fa ct%20Sheets/302-390 2%53EVFH-PTH-7%20HE ALTHCARE%20PROVIDER S%20FACT%20SHEET.pd f Fact Sheet for Healthcare Patients:https://jyoti [employer]/Docum ents/Xpert%20Xpress %20SARS%20Cov-2/Fac t%20Sheets/302-3801 %34GUSC-AAS-2%20PAT IENT%20FACT%20SHEET .pdfThe presence of SARS-CoV-2/FLU/RSV viral nucleic [...] SARS-CoV-2/Flu/RSV by their healthcare provider. Results from [facility] Xpert Xpress SARS-CoV-2/Flu/RSV test should [...] the Act. Fact Sheet for Healthcare Providers:https://w Whisper/Docu ments/Xpert%20Xpres s%20SARS%20CoV-2/Fa ct%20Sheets/302-390 2%27NVRR-BWP-2%20HE ALTHCARE%20PROVIDER S%20FACT%20SHEET.pd f Fact Sheet for Healthcare Patients:https://jyoti [employer]/Docum ents/Xpert%20Xpress %20SARS%20Cov-2/Fac t%20Sheets/302-3801 %07MOMX-SIS-1%20PAT IENT%20FACT%20SHEET .pdf Lab Interpretation Normal (test code = 59169-1) [facility] [id number] 23:45:12 Test Item Value Reference Interpretation Comments Range SARS-COV2/RT-PCR Negative Negative The SARS-Co V-2 (test code = target nucleic 60441-5) acids are not detected in thi s [...] (test code = [place] 35170-8) not detected in this specimen. Influenza B RT-PCR Negative Negative The Flu B target (test code = [place] 25082-9) not detected in this specimen. RSV by RT-PCR (test Negative Negative The RSV target code = 80048-4) nucleic acid s are not detected in [...] SARS-CoV-2/Flu/RSV by their healthcare provider. Results from [facility] Xpert Xpress SARS-CoV-2/Flu/RSV test should [...] the Act. Fact Sheet for Healthcare Providers:https://w Dizzion.Jianjian/Docu ments/Xpert%20Xpres s%20SARS%20CoV-2/Fa ct%20Sheets/302-390 2%52HUXL-UHX-4%20HE ALTHCARE%20PROVIDER S%20FACT%20SHEET.pd f Fact Sheet for Healthcare Patients:https://ww [employer]/Docum ents/Xpert%20Xpress %20SARS%20Cov-2/Fac t%20Sheets/302-3801 %32TUUN-KOP-9%20PAT IENT%20FACT%20SHEET .pdfThe presence of SARS-CoV-2/FLU/RSV viral nucleic [...] the Act. Fact Sheet for Healthcare Providers:https://w Whisper/Docu ments/Xpert%20Xpres s%20SARS%20CoV-2/Fa ct%20Sheets/302-390 2%47PTGX-YFH-6%20HE ALTHCARE%20PROVIDER S%20FACT%20SHEET.pd f Fact Sheet for Healthcare Patients:https://ww [employer]/Docum ents/Xpert%20Xpress %20SARS%20Cov-2/Fac t%20Sheets/302-3801 %52CBDZ-KAH-1%20PAT IENT%20FACT%20SHEET .pdf Lab Interpretation Normal (test code = 11873-4) [facility] [id number] 23:45:12 Test Item Value Reference Interpretation Comments Range SARS-COV2/RT-PCR Negative Negative The SARS-Co V-2 (test code = target nucleic 35488-4) acids are not detected in thi s [...] om SARS-CoV-2 in a nasopharyngeal swab specimen [facility] from individual s suspected of COVID-19 by the ir healthcare provider. Influenza A RT-PCR Negative Negative The Flu A target (test code = [place] 07698-7) not detected in this specimen. Influenza B RT-PCR Negative Negative The Flu B target (test code = nucleic [place] 95200-8) not detected in this specimen. RSV by RT-PCR (test Negative Negative The RSV target code = 67508-3) nucleic acid s are not detected in [...] the Act. Fact Sheet for Healthcare Providers:https://w Whisper/Docu ments/Xpert%20Xpres s%20SARS%20CoV-2/Fa ct%20Sheets/302-390 2%29JLRU-XBZ-0%20HE ALTHCARE%20PROVIDER S%20FACT%20SHEET.pd f Fact Sheet for Healthcare Patients:https://jyoti [employer]/Docum ents/Xpert%20Xpress %20SARS%20Cov-2/Fac t%20Sheets/302-3801 %72DXAN-AIR-8%20PAT IENT%20FACT%20SHEET .pdfThe presence of SARS-CoV-2/FLU/RSV viral nucleic [...] the Act. Fact Sheet for Healthcare Providers:https://w Whisper/Docu ments/Xpert%20Xpres s%20SARS%20CoV-2/Fa ct%20Sheets/302-390 2%01PHNF-UXP-8%20HE ALTHCARE%20PROVIDER S%20FACT%20SHEET.pd f Fact Sheet for Healthcare Patients:https://jyoti [employer]/Docum ents/Xpert%20Xpress %20SARS%20Cov-2/Fac t%20Sheets/302-3801 %60UCKI-UDR-1%20PAT IENT%20FACT%20SHEET .pdf Lab Interpretation Normal (test code = 96506-7) [facility]/RSV [id number] 23:45:12 Test Item Value Reference Range Interpretation Comments SARS-COV2/RT-PCR Negative Negative The SARS-Co V-2 target (test code = nucleic acids a re not 8279485) detected in thi s specimen. Negat prince [...] individuals una pected of COVID-19 by [facility] ide. INFLUENZA A RT-PCR Negative Negative The Flu A target nucleic (test code = acids are not d etected in 0343534) this specimen. INFLUENZA B RT-PCR Negative Negative The Flu B target nucleic (test code = acids are not d etected in 5646127) this specimen. RSV RT-PCR (test Negative Negative The RSV tar get nucleic code = 6313921) acids are no t detected in this [...] Xpress SARS-CoV-2/Flu/RSV by their healthcareprovider. Results from [facility] Xpert Xpress SARS-CoV-2/Flu/RSV test should [...] of the Act.Fact Sheet for Healthcare Providers:https ://www.Jianjian/Documents/Xpert%20Xpress%20SARS%20CoV-2/Fact%20Sheets/302-390 2%97UCTR-RLP-6%20HEALTHCARE%20PROVIDERS%20FACT%20SHEET.pdfFact Sheet for Healthcare Patients:https://www.Jianjian/Docum ents/Xpert%20Xpress%20SARS%20Cov-2/Fact%20Sheets/302-3801%25FVWV-RLM-3%20PATIENT %20FACT%20SHEET.pdfThe presence of SARS-CoV-2/FLU/RSV viral nucleic acids [...] SARS-CoV-2/Flu/RSV by their healthcare provider. Results from Mobile Location, IP Xpert Xpress SARS-CoV-2/Flu/RSV test should be correlated [...] of the Act.Fact Sheet for Healthcare Providers:https:/ /www.Jianjian/Documents/Xpert%20Xpress%20SARS%20CoV-2/Fact%20Sheets/302-3902% 18UXSU-RDF-0%20HEALTHCARE%20PROVIDERS%20FACT%20SHEET.pdfFact Sheet for Healthcare Patients:https://www.Jianjian/Documen ts/Xpert%20Xpress%20SARS%20Cov-2/Fact%20Sheets/302-3801%29SFKO-LMA-6%20PATIENT%2 0FACT%20SHEET.pdfLactic Acid Whole [id number] 12:44:43 Test Item Value Reference Range Interpretation Comments LACTIC ACID (test code = 1.06 mmol/L 0.50-2.20 2278364104) Lab Interpretation (test code = Normal 45416-0) [facility] Whole [id number] 12:44:43 Test Item Value Reference Range Interpretation Comments LACTIC ACID (test code = 1.06 mmol/L 0.50-2.20 4866739965) Lab Interpretation (test code = Normal 35239-7) [facility] Whole [id number] 12:44:43 Test Item Value Reference Range Interpretation Comments LACTIC ACID (test code = 1.06 mmol/L 0.50-2.20 2371570281) Lab Interpretation (test code = Normal 23345-3) [facility]af[facility] Whole [id number] 12:44:43 Test Item Value Reference Range Interpretation Comments LACTIC ACID (test code = 1.06 mmol/L 0.50-2.20 0924266370) Lab Interpretation (test code = Normal 05637-0) [facility] Whole [id number] 12:44:43 Test Item Value Reference Range Interpretation Comments LACTIC ACID (test code = 1.06 mmol/L 0.50-2.20 6076480970) Lab Interpretation (test code = Normal 77267-0) [facility] WITH [id number] 11:48:54 Test Item Value Reference Range Interpretation [...] RDW-SD (test code = 39.4 fL 38.5-51.6 69663-5) RDW-CV (test code = 13.0 % 12.1-15.4 788-0) PLT (test code = See_Comment L [Automated 777-3) message] The sy stem which generated this result transmitted reference range : 150 - 328 10*3/ ?L. The reference r helen was not used to interpret this result as normal/abnormal . MPV (test code = 10.1 fL 9.8-13.0 33492-3) IPF % (test code = 4.1 % 1.2-10.7 Platelet count 3857449582) measured by fluorescence method. NRBC/100 WBC (test See_Comment [Automat ed code = 7244616837) message] The system which generated this result transmitted reference range : 0.0 - 10.0 /100 WBCs. The refer ence range was not u sed to interpret th is result as normal/abnormal . NRBC x10^3 (test code See_Comment [Auto mated = 4126641646) message] The s ystem which generated this result transmitted reference range : 10*3/?L. The reference range was not used to interpret this result as normal/abnormal . GRAN MAT (NEUT) % 77.2 % (test code = 770-8) IMM GRAN % (test code 0.30 % = 5005611823) LYMPH % (test code = 10.5 % 736-9) MONO % (test code = 11.4 % 5905-5) EOS % (test code = 0.3 % 713-8) BASO % (test code = 0.3 % 706-2) GRAN MAT x10^3(ANC) 5.64 10*3/uL 1.99-6.95 (test code = 1031047407) IMM GRAN x10^3 (test 0.00-0.06 code = 8885911218) LYMPH x10^3 (test code 0.77 10*3/uL 1.09-3.23 L = 731-0) MONO x10^3 (test code 0.83 10*3/uL 0.36-1.02 = 742-7) EOS x10^3 (test code = 0.06-0.53 L 711-2) BASO x10^3 (test code 0.01-0.09 = 704-7) BANDS (test code = Increased A 6676758003) Lab Interpretation Abnormal (test code = 10224-4) [facility] WITH [id number] 11:48:54 Test Item Value Reference Range Interpretation [...] RDW-SD (test code = 39.4 fL 38.5-51.6 53561-7) RDW-CV (test code = 13.0 % 12.1-15.4 788-0) PLT (test code = See_Comment L [Automated 777-3) message] The sy stem which generated this result transmitted reference range : 150 - 328 10*3/ ?L. The reference r helen was not used to interpret this result as normal/abnormal . MPV (test code = 10.1 fL 9.8-13.0 36568-5) IPF % (test code = 4.1 % 1.2-10.7 Platelet count 5881914472) measured by fluorescence method. NRBC/100 WBC (test See_Comment [Automat ed code = 4350077103) message] The system which generated this result transmitted reference range : 0.0 - 10.0 /100 WBCs. The refer ence range was not u sed to interpret th is result as normal/abnormal . NRBC x10^3 (test code See_Comment [Auto mated = 5948626153) message] The s ystem which generated this result transmitted reference range : 10*3/?L. The reference range was not used to interpret this result as normal/abnormal . GRAN MAT (NEUT) % 77.2 % (test code = 770-8) IMM GRAN % (test code 0.30 % = 4361552864) LYMPH % (test code = 10.5 % 736-9) MONO % (test code = 11.4 % 5905-5) EOS % (test code = 0.3 % 713-8) BASO % (test code = 0.3 % 706-2) GRAN MAT x10^3(ANC) 5.64 10*3/uL 1.99-6.95 (test code = 4496938057) IMM GRAN x10^3 (test 0.00-0.06 code = 5626477712) LYMPH x10^3 (test code 0.77 10*3/uL 1.09-3.23 L = 731-0) MONO x10^3 (test code 0.83 10*3/uL 0.36-1.02 = 742-7) EOS x10^3 (test code = 0.06-0.53 L 711-2) BASO x10^3 (test code 0.01-0.09 = 704-7) BANDS (test code = Increased A 9731630534) Lab Interpretation Abnormal (test code = 79088-9) [facility]2022-11-24 11:41:40 Test Item Value Reference Range Interpretation Comments MAGNESIUM (test code = 2590622382) 1.8 mg/dL 1.7-2.4 Lab Interpretation (test code = Normal 57534-5) [facility] PANEL (57747) (ALB,T.PRO,BILI T,BU/BC,ALT,AST,ALK PHOS)2022-07-29 11:41:40 Test Item Value Reference Range Interpretation Comments TOTAL BILI (test code = 9235543773) 0.7 mg/dL 0.1-1.1 BILI UNCON (test code = 7306630953) 0.3 mg/dL 0.1-1.1 BILI CONJ (test code = 2669976302) 0.0 mg/dL 0.0-0.3 T PROTEIN (test code = 4914734821) 5.7 g/dL 6.3-8.2 L ALBUMIN (test code = 5785694387) 3.3 g/dL 3.5-5.0 L ALK PHOS (test code = 0510407307) 228 U/L 34-122 H ALTv (test code = 1742-6) 41 U/L 5-50 AST(SGOT) (test code = 9553104878) 39 U/L 13-40 Lab Interpretation (test code = Abnormal 11674-7) [facility] METABOLIC PANEL (NA, K, CL, CO2, GLUCOSE, BUN, CREATININE, CA)2022-07-29 11:41:40 Test Item Value Reference Range Interpretation Comments NA (test code = 132 mmol/L 135-145 L 3682793524) K (test code = 3.4 mmol/L 3.5-5.0 L 3801935120) CL (test code = 94 mmol/L 98-108 L 0859613398) CO2 TOTAL (test code = 30 mmol/L 23-31 4617591964) AGAP (test code = 2-16 2423571283) BUN (test code = 11 mg/dL 7-23 2814892187) GLUCOSE (test code = 95 mg/dL 70-110 7966032405) CREATININE (test code = 0.70 mg/dL 0.60-1.25 3648953557) CALCIUM (test code = 8.3 mg/dL 8.6-10.6 L 6139680079) eGFR (test code = mL/min/1.73m2 5923818007) JUAN DAVID (test code = JUAN DAVID) [...] tests). Lab Interpretation Abnormal (test code = 41219-7) [facility] Test Item Value Reference Range Interpretation Comments MAGNESIUM (test code = 1568000528) 1.8 mg/dL 1.7-2.4 Lab Interpretation (test code = Normal 21875-8) [facility] (81011) (ALB,T.PRO,BILI T,BU/BC,ALT,AST,ALK PHOS)2022-07-29 11:41:40 Test Item Value Reference Range Interpretation Comments TOTAL BILI (test code = 8253767236) 0.7 mg/dL 0.1-1.1 BILI UNCON (test code = 4646091522) 0.3 mg/dL 0.1-1.1 BILI CONJ (test code = 4022572814) 0.0 mg/dL 0.0-0.3 T PROTEIN (test code = 1095415898) 5.7 g/dL 6.3-8.2 L ALBUMIN (test code = 9803335533) 3.3 g/dL 3.5-5.0 L ALK PHOS (test code = 4176481966) 228 U/L 34-122 H ALTv (test code = 1742-6) 41 U/L 5-50 AST(SGOT) (test code = 2778786146) 39 U/L 13-40 Lab Interpretation (test code = Abnormal 86347-6) [facility] 11:41:40 Test Item Value Reference Range Interpretation Comments MAGNESIUM (test code = 2261988872) 1.8 mg/dL 1.7-2.4 Lab Interpretation (test code = Normal 44428-8) [facility] (70250) (ALB,T.PRO,BILI T,BU/BC,ALT,AST,ALK PHOS)2022-07-29 11:41:40 Test Item Value Reference Range Interpretation Comments TOTAL BILI (test code = 0395300966) 0.7 mg/dL 0.1-1.1 BILI UNCON (test code = 1929798100) 0.3 mg/dL 0.1-1.1 BILI CONJ (test code = 8804920848) 0.0 mg/dL 0.0-0.3 T PROTEIN (test code = 8462349561) 5.7 g/dL 6.3-8.2 L ALBUMIN (test code = 1664498507) 3.3 g/dL 3.5-5.0 L ALK PHOS (test code = 2723190142) 228 U/L 34-122 H ALTv (test code = 1742-6) 41 U/L 5-50 AST(SGOT) (test code = 9725015155) 39 U/L 13-40 Lab Interpretation (test code = Abnormal 06179-3) [facility]2022-[facility]-24 11:41:40 Test Item Value Reference Range Interpretation Comments MAGNESIUM (test code = 5176739501) 1.8 mg/dL 1.7-2.4 Lab Interpretation (test code = Normal 13568-2) [facility] (66285) (ALB,T.PRO,BILI T,BU/BC,ALT,AST,ALK PHOS)2022-07-29 11:41:40 Test Item Value Reference Range Interpretation Comments TOTAL BILI (test code = 9563414144) 0.7 mg/dL 0.1-1.1 BILI UNCON (test code = 8687242689) 0.3 mg/dL 0.1-1.1 BILI CONJ (test code = 6758157947) 0.0 mg/dL 0.0-0.3 T PROTEIN (test code = 0303059376) 5.7 g/dL 6.3-8.2 L ALBUMIN (test code = 5671118151) 3.3 g/dL 3.5-5.0 L ALK PHOS (test code = 5518741603) 228 U/L 34-122 H ALTv (test code = 1742-6) 41 U/L 5-50 AST(SGOT) (test code = 2570436925) 39 U/L 13-40 Lab Interpretation (test code = Abnormal 36408-0) [facility] METABOLIC PANEL (NA, K, CL, CO2, GLUCOSE, BUN, CREATININE, CA)2022-07-29 11:41:40 Test Item Value Reference Range Interpretation Comments NA (test code = 132 mmol/L 135-145 L 6767475671) K (test code = 3.4 mmol/L 3.5-5.0 L 2917095612) CL (test code = 94 mmol/L 98-108 L 7503026430) CO2 TOTAL (test code = 30 mmol/L 23-31 3217823794) AGAP (test code = 2-16 9855748663) BUN (test code = 11 mg/dL 7-23 4214976201) GLUCOSE (test code = 95 mg/dL 70-110 8524538209) CREATININE (test code = 0.70 mg/dL 0.60-1.25 0719876959) CALCIUM (test code = 8.3 mg/dL 8.6-10.6 L 5670288420) eGFR (test code = mL/min/1.73m2 4907969626) JUAN DAVID (test code = JUAN DAVID) [...] tests). Lab Interpretation Abnormal (test code = 47626-5) [facility] Test Item Value Reference Range Interpretation Comments MAGNESIUM (test code = 3836616241) 1.8 mg/dL 1.7-2.4 Lab Interpretation (test code = Normal 36172-8) [facility] (ALB,T.PRO,BILI T,BU/BC,ALT,AST,ALK PHOS)2022-07-29 11:41:40 Test Item Value Reference Range Interpretation Comments TOTAL BILI (test code = 7946844746) 0.7 mg/dL 0.1-1.1 BILI UNCON (test code = 0729592793) 0.3 mg/dL 0.1-1.1 BILI CONJ (test code = 9249428367) 0.0 mg/dL 0.0-0.3 T PROTEIN (test code = 2780093371) 5.7 g/dL 6.3-8.2 L ALBUMIN (test code = 6070117832) 3.3 g/dL 3.5-5.0 L ALK PHOS (test code = 2366021902) 228 U/L 34-122 H ALTv (test code = 1742-6) 41 U/L 5-50 AST(SGOT) (test code = 4271302650) 39 U/L 13-40 Lab Interpretation (test code = Abnormal 32856-5) [facility]88198[facility] (ALB,T.PRO,BILI T,BU/BC,ALT,AST,ALK PHOS)2022-07-29 11:41:40 Test Item Value Reference Range Interpretation Comments TOTAL BILI (test code = 3303679505) 0.7 mg/dL 0.1-1.1 BILI UNCON (test code = 6861341586) 0.3 mg/dL 0.1-1.1 BILI CONJ (test code = 1196783786) 0.0 mg/dL 0.0-0.3 T PROTEIN (test code = 2388948192) 5.7 g/dL 6.3-8.2 L ALBUMIN (test code = 6568089956) 3.3 g/dL 3.5-5.0 L ALK PHOS (test code = 2727669469) 228 U/L 34-122 H ALTv (test code = 1742-6) 41 U/L 5-50 AST(SGOT) (test code = 5929851328) 39 U/L 13-40 Lab Interpretation (test code = Abnormal 91987-7) [facility]:23 Test Item Value Reference Range Interpretation Comments LIPASE (test code = 0898416768) 562 U/L 0-220 H Lab Interpretation (test code = Abnormal 39592-6) [facility] 19:51:23 Test Item Value Reference Range Interpretation Comments LIPASE (test code = 1024584275) 562 U/L 0-220 H Lab Interpretation (test code = Abnormal 06078-9) [facility] 19:51:23 Test Item Value Reference Range Interpretation Comments LIPASE (test code = 9303309832) 562 U/L 0-220 H Lab Interpretation (test code = Abnormal 53990-6) [facility] 19:51:23 Test Item Value Reference Range Interpretation Comments LIPASE (test code = 8846713756) 562 U/L 0-220 H Lab Interpretation (test code = Abnormal 14673-9) [facility] 19:51:23 Test Item Value Reference Range Interpretation Comments LIPASE (test code = 5558706491) 562 U/L 0-220 H Lab Interpretation (test code = Abnormal 02487-7) [facility] 19:51:23 Test Item Value Reference Range Interpretation Comments LIPASE (test code = 3210863965) 562 U/L 0-220 H Lab Interpretation (test code = Abnormal 38176-6) [facility] with Csqplydxxgpt8148-44-66 09:03:27 Test Item Value Reference Range Interpretation [...] RDW-SD (test code = 41.0 fL 38.5-51.6 44651-1) RDW-CV (test code = 13.2 % 12.1-15.4 788-0) PLT (test code = See_Comment L [Automated 777-3) message] The sy stem which generated this result transmitted reference range : 150 - 328 10*3/ ?L. The reference r helen was not used to interpret this result as normal/abnormal . MPV (test code = 10.7 fL 9.8-13.0 75996-9) IPF % (test code = 3.4 % 1.2-10.7 Platelet count 5564342396) measured by fluorescence method. NRBC/100 WBC (test See_Comment [Automat ed code = 0561845519) message] The system which generated this result transmitted reference range : 0.0 - 10.0 /100 WBCs. The refer ence range was not u sed to interpret th is result as normal/abnormal . NRBC x10^3 (test code See_Comment [Auto mated = 3909869722) message] The s ystem which generated this result transmitted reference range : 10*3/?L. The reference range was not used to interpret this result as normal/abnormal . GRAN MAT (NEUT) % 78.0 % (test code = 770-8) IMM GRAN % (test code 0.20 % = 1456291075) LYMPH % (test code = 12.7 % 736-9) MONO % (test code = 8.9 % 5905-5) EOS % (test code = 0.0 % 713-8) BASO % (test code = 0.2 % 706-2) GRAN MAT x10^3(ANC) 3.75 10*3/uL 1.99-6.95 (test code = 4602204835) IMM GRAN x10^3 (test 0.00-0.06 code = 7548102498) LYMPH x10^3 (test code 0.61 10*3/uL 1.09-3.23 L = 731-0) MONO x10^3 (test code 0.43 10*3/uL 0.36-1.02 = 742-7) EOS x10^3 (test code = 0.06-0.53 L 711-2) BASO x10^3 (test code 0.01-0.09 = 704-7) Lab Interpretation Abnormal (test code = 63948-4) [facility] (53815)(TOTAL CHOLESTEROL, TRIGLYCERIDES, HDL)2022-07-27 08:49:01 Test Item Value Reference Range Interpretation Comments CHOL (test code = 108 mg/dL 120-200 L 6877750676) HDL (test code = 33 mg/dL See_Comment L [Automated message] 3716921574) The system [employer] generated this result transmit loki reference range : >=40. The refer ence range was not u sed to interpret th is result as normal/abnormal . HDLC RATIO (test code = See_Comment [Au tomated message] 9501384811) The system [employer] generated this result transmit loki reference range : <=5.0. The refe rence range was not u sed to interpret th is result as normal/abnormal . TRIG (test code = 115 mg/dL 30-170 7870739383) LDL CHOL (test code = 52 mg/dL See_Comment [Auto mated message] 64619-0) The system [employer] generated this result transmit loki reference range : <=160. The refe rence range was not u sed to interpret th is result as normal/abnormal . VLDL (test code = 23 mg/dL 5-60 3148664778) Lab Interpretation (test Abnormal code = 68486-4) [facility] (16461)(TOTAL CHOLESTEROL, TRIGLYCERIDES, HDL)2022-07-27 08:49:01 Test Item Value Reference Range Interpretation Comments CHOL (test code = 108 mg/dL 120-200 L 6899335444) HDL (test code = 33 mg/dL See_Comment L [Automated message] 4438292588) The system [employer] generated this result transmit loki reference range : >=40. The refer ence range was not u sed to interpret th is result as normal/abnormal . HDLC RATIO (test code = See_Comment [Au tomated message] 9992863509) The system [employer] generated this result transmit loki reference range : <=5.0. The refe rence range was not u sed to interpret th is result as normal/abnormal . TRIG (test code = 115 mg/dL 30-170 1248752992) LDL CHOL (test code = 52 mg/dL See_Comment [Auto mated message] 31235-2) The system [employer] generated this result transmit loki reference range : <=160. The refe rence range was not u sed to interpret th is result as normal/abnormal . VLDL (test code = 23 mg/dL 5-60 1957576381) Lab Interpretation (test Abnormal code = 10448-2) [facility] (96330)(TOTAL CHOLESTEROL, TRIGLYCERIDES, HDL)2022-07-27 08:49:01 Test Item Value Reference Range Interpretation Comments CHOL (test code = 108 mg/dL 120-200 L 2731937789) HDL (test code = 33 mg/dL See_Comment L [Automated message] 5284849450) The system [employer] generated this result transmit loki reference range : >=40. The refer ence range was not u sed to interpret th is result as normal/abnormal . HDLC RATIO (test code = See_Comment [Au tomated message] 7837316830) The system [employer] generated this result transmit loki reference range : <=5.0. The refe rence range was not u sed to interpret th is result as normal/abnormal . TRIG (test code = 115 mg/dL 30-170 5558529136) LDL CHOL (test code = 52 mg/dL See_Comment [Auto mated message] 81902-8) The system [employer] generated this result transmit loki reference range : <=160. The refe rence range was not u sed to interpret th is result as normal/abnormal . VLDL (test code = 23 mg/dL 5-60 2243895684) Lab Interpretation (test Abnormal code = 95464-1) [facility] (26731)(TOTAL CHOLESTEROL, TRIGLYCERIDES, HDL)2022-07-27 08:49:01 Test Item Value Reference Range Interpretation Comments CHOL (test code = 108 mg/dL 120-200 L 9688027232) HDL (test code = 33 mg/dL See_Comment L [Automated message] 9414921531) The system [employer] generated this result transmit loki reference range : >=40. The refer ence range was not u sed to interpret th is result as normal/abnormal . HDLC RATIO (test code = See_Comment [Au tomated message] 4133221904) The system [employer] generated this result transmit loki reference range : <=5.0. The refe rence range was not u sed to interpret th is result as normal/abnormal . TRIG (test code = 115 mg/dL 30-170 2254475261) LDL CHOL (test code = 52 mg/dL See_Comment [Auto mated message] 11038-3) The system [employer] generated this result transmit loki reference range : <=160. The refe rence range was not u sed to interpret th is result as normal/abnormal . VLDL (test code = 23 mg/dL 5-60 3763337508) Lab Interpretation (test Abnormal code = 01645-0) [facility] (NA, K, CL, CO2, GLUCOSE, BUN, CREATININE, CA)2022-07-27 08:49:01 Test Item Value Reference Range Interpretation Comments NA (test code = 131 mmol/L 135-145 L 2299690250) K (test code = 3.5 mmol/L 3.5-5.0 5739394634) CL (test code = 99 mmol/L 98-108 2484340163) CO2 TOTAL (test code = 26 mmol/L 23-31 8730882923) AGAP (test code = 2-16 7964423988) BUN (test code = 12 mg/dL 7-23 3212728307) GLUCOSE (test code = 84 mg/dL 70-110 8905138808) CREATININE (test code = 0.71 mg/dL 0.60-1.25 2970184116) CALCIUM (test code = 8.2 mg/dL 8.6-10.6 L 0440129026) eGFR (test code = mL/min/1.73m2 3166356012) JUAN DAVID (test code = JUAN DAVID) [...] tests). Lab Interpretation Abnormal (test code = 10067-4) [facility] [id number] 08:49:01 Test Item Value Reference Range Interpretation Comments MAGNESIUM (test code = 4447564326) 1.9 mg/dL 1.7-2.4 Lab Interpretation (test code = Normal 14223-2) [facility] (33916)(TOTAL CHOLESTEROL, TRIGLYCERIDES, HDL)2022-07-27 08:49:01 Test Item Value Reference Range Interpretation Comments CHOL (test code = 108 mg/dL 120-200 L 2286309080) HDL (test code = 33 mg/dL See_Comment L [Automated message] 0154089907) The system [employer] generated this result transmit loki reference range : >=40. The refer ence range was not u sed to interpret th is result as normal/abnormal . HDLC RATIO (test code = See_Comment [Au tomated message] 1748327073) The system [employer] generated this result transmit loki reference range : <=5.0. The refe rence range was not u sed to interpret th is result as normal/abnormal . TRIG (test code = 115 mg/dL 30-170 0175513466) LDL CHOL (test code = 52 mg/dL See_Comment [Auto mated message] 87640-2) The system [employer] generated this result transmit loki reference range : <=160. The refe rence range was not u sed to interpret th is result as normal/abnormal . VLDL (test code = 23 mg/dL 5-60 7873357138) Lab Interpretation (test Abnormal code = 77335-8) [facility] (19300)(TOTAL CHOLESTEROL, TRIGLYCERIDES, HDL)2022-07-27 08:49:01 Test Item Value Reference Range Interpretation Comments CHOL (test code = 108 mg/dL 120-200 L 0283201039) HDL (test code = 33 mg/dL See_Comment L [Automated message] 9805913707) The system [employer] generated this result transmit loki reference range : >=40. The refer ence range was not u sed to interpret th is result as normal/abnormal . HDLC RATIO (test code = See_Comment [Au tomated message] 4252887957) The system [employer] generated this result transmit loki reference range : <=5.0. The refe rence range was not u sed to interpret th is result as normal/abnormal . TRIG (test code = 115 mg/dL 30-170 6211061361) LDL CHOL (test code = 52 mg/dL See_Comment [Auto mated message] 69356-2) The system [employer] generated this result transmit loki reference range : <=160. The refe rence range was not u sed to interpret th is result as normal/abnormal . VLDL (test code = 23 mg/dL 5-60 5270699401) Lab Interpretation (test Abnormal code = 94230-2) [facility]OMEN/KUB, 1 VIEW [id number] 00:13:00 [facility] 1960 Sex: MFINAL REPORT Patient Name: Carrol AnneDOB: 1960MRN: [id number]: Abdomen, single viewExam date/time: 06/08/2022 at 5:37 PMDowntime AN#:[id number] Examination was dictated during a downtime event. [...] Cindy Alcala MDReport Verified Date/Time: 07/15/2022 00:13:30 [id number] 23:08:54 Test Item Value Reference Range Interpretation Comments LIPASE (test code = 2022327154) 171 U/L 0-220 Lab Interpretation (test code = Normal 16962-8) [facility]. METABOLIC PANEL (71560)2022-07-09 23:08:53 Test Item Value Reference Range Interpretation Comments NA (test code = 136 mmol/L 135-145 2357787103) K (test code = 3.9 mmol/L 3.5-5.0 7890575355) CL (test code = 99 mmol/L 98-108 2805654328) CO2 TOTAL (test code = 26 mmol/L 23-31 4321975855) AGAP (test code = 2-16 3839004902) BUN (test code = 14 mg/dL 7-23 2150925876) GLUCOSE (test code = 112 mg/dL 70-110 H 1247857816) CREATININE (test code = 0.76 mg/dL 0.60-1.25 5771994695) TOTAL BILI (test code = 0.4 mg/dL 0.1-1.4 0820870291) CALCIUM (test code = 8.7 mg/dL 8.6-10.6 2457733259) T PROTEIN (test code = 6.3 g/dL 6.3-8.2 9433897490) ALBUMIN (test code = 3.6 g/dL 3.5-5.0 3190075655) ALK PHOS (test code = 233 U/L 34-122 H 6756818569) ALTv (test code = 37 U/L 5-50 1742-6) AST(SGOT) (test code = 32 U/L 13-40 9744082456) eGFR (test code = mL/min/1.73m2 3581211478) JUAN DAVID (test code = JUAN DAVID) [...] tests). Lab Interpretation Abnormal (test code = 78800-8) [facility] MET[facility]OLIC PANEL (91504)2022-07-09 23:08:53 Test Item Value Reference Range Interpretation Comments NA (test code = 136 mmol/L 135-145 2382959890) K (test code = 3.9 mmol/L 3.5-5.0 9715666994) CL (test code = 99 mmol/L 98-108 3891107829) CO2 TOTAL (test code = 26 mmol/L 23-31 2748605369) AGAP (test code = 2-16 2594264599) BUN (test code = 14 mg/dL 7-23 8007311883) GLUCOSE (test code = 112 mg/dL 70-110 H 0785574659) CREATININE (test code = 0.76 mg/dL 0.60-1.25 9504355754) TOTAL BILI (test code = 0.4 mg/dL 0.1-1.7 4725067362) CALCIUM (test code = 8.7 mg/dL 8.6-10.6 0795602019) T PROTEIN (test code = 6.3 g/dL 6.3-8.2 0538296163) ALBUMIN (test code = 3.6 g/dL 3.5-5.0 1698520983) ALK PHOS (test code = 233 U/L 34-122 H 7525251516) ALTv (test code = 37 U/L 5-50 1742-6) AST(SGOT) (test code = 32 U/L 13-40 0471799290) eGFR (test code = mL/min/1.73m2 8854105033) JUAN DAVID (test code = JUAN DAVID) [...] tests). Lab Interpretation Abnormal (test code = 12037-6) [facility]. METABOLIC PANEL (69894)2022-07-09 23:08:53 Test Item Value Reference Range Interpretation Comments NA (test code = 136 mmol/L 135-145 1222003691) K (test code = 3.9 mmol/L 3.5-5.0 0062922825) CL (test code = 99 mmol/L 98-108 1348222052) CO2 TOTAL (test code = 26 mmol/L 23-31 6428591465) AGAP (test code = 2-16 0418980585) BUN (test code = 14 mg/dL 7-23 7298680382) GLUCOSE (test code = 112 mg/dL 70-110 H 0005162640) CREATININE (test code = 0.76 mg/dL 0.60-1.25 5636741695) TOTAL BILI (test code = 0.4 mg/dL 0.1-1.2 1143796907) CALCIUM (test code = 8.7 mg/dL 8.6-10.6 4300852200) T PROTEIN (test code = 6.3 g/dL 6.3-8.2 7754029350) ALBUMIN (test code = 3.6 g/dL 3.5-5.0 1075028726) ALK PHOS (test code = 233 U/L 34-122 H 5492550641) ALTv (test code = 37 U/L 5-50 1742-6) AST(SGOT) (test code = 32 U/L 13-40 9096621298) eGFR (test code = mL/min/1.73m2 3057500529) JUAN DAVID (test code = JUAN DAVID) [...] tests). Lab Interpretation Abnormal (test code = 25850-3) [facility]. METABOLIC PANEL (15260)2022-07-09 23:08:53 Test Item Value Reference Range Interpretation Comments NA (test code = 136 mmol/L 135-145 3702882156) K (test code = 3.9 mmol/L 3.5-5.0 7248818625) CL (test code = 99 mmol/L 98-108 7931559070) CO2 TOTAL (test code = 26 mmol/L 23-31 4604450945) AGAP (test code = 2-16 6574229542) BUN (test code = 14 mg/dL 7-23 6520350877) GLUCOSE (test code = 112 mg/dL 70-110 H 7778243644) CREATININE (test code = 0.76 mg/dL 0.60-1.25 8477179740) TOTAL BILI (test code = 0.4 mg/dL 0.1-1.3 5530693781) CALCIUM (test code = 8.7 mg/dL 8.6-10.6 1387860270) T PROTEIN (test code = 6.3 g/dL 6.3-8.2 2383028286) ALBUMIN (test code = 3.6 g/dL 3.5-5.0 2886448729) ALK PHOS (test code = 233 U/L 34-122 H 1254342143) ALTv (test code = 37 U/L 5-50 1742-6) AST(SGOT) (test code = 32 U/L 13-40 9948899523) eGFR (test code = mL/min/1.73m2 6942907529) JUAN DAVID (test code = JUAN DAVID) [...] tests). Lab Interpretation Abnormal (test code = 19718-0) [facility]. METABOLIC PANEL (16090)2022-07-09 23:08:53 Test Item Value Reference Range Interpretation Comments NA (test code = 136 mmol/L 135-145 9556841604) K (test code = 3.9 mmol/L 3.5-5.0 5325586249) CL (test code = 99 mmol/L 98-108 9238990191) CO2 TOTAL (test code = 26 mmol/L 23-31 9013322652) AGAP (test code = 2-16 5079855021) BUN (test code = 14 mg/dL 7-23 6061344139) GLUCOSE (test code = 112 mg/dL 70-110 H 4762277362) CREATININE (test code = 0.76 mg/dL 0.60-1.25 1137351109) TOTAL BILI (test code = 0.4 mg/dL 0.1-1.1 6723119133) CALCIUM (test code = 8.7 mg/dL 8.6-10.6 8637134940) T PROTEIN (test code = 6.3 g/dL 6.3-8.2 5304687382) ALBUMIN (test code = 3.6 g/dL 3.5-5.0 5468516177) ALK PHOS (test code = 233 U/L 34-122 H 9577830131) ALTv (test code = 37 U/L 5-50 1742-6) AST(SGOT) (test code = 32 U/L 13-40 4268021438) eGFR (test code = mL/min/1.73m2 3450018794) JUAN DAVID (test code = JUAN DAVID) [...] tests). Lab Interpretation Abnormal (test code = 93341-7) [facility]. METABOLIC PANEL (23998)2022-07-09 23:08:53 Test Item Value Reference Range Interpretation Comments NA (test code = 136 mmol/L 135-145 1553552307) K (test code = 3.9 mmol/L 3.5-5.0 2999592977) CL (test code = 99 mmol/L 98-108 6435144952) CO2 TOTAL (test code = 26 mmol/L 23-31 0658568268) AGAP (test code = 2-16 1220757851) BUN (test code = 14 mg/dL 7-23 6224015539) GLUCOSE (test code = 112 mg/dL 70-110 H 2960230614) CREATININE (test code = 0.76 mg/dL 0.60-1.25 7627222864) TOTAL BILI (test code = 0.4 mg/dL 0.1-1.1 8968568113) CALCIUM (test code = 8.7 mg/dL 8.6-10.6 5772537585) T PROTEIN (test code = 6.3 g/dL 6.3-8.2 3025280045) ALBUMIN (test code = 3.6 g/dL 3.5-5.0 3025670070) ALK PHOS (test code = 233 U/L 34-122 H 6621294892) ALTv (test code = 37 U/L 5-50 1742-6) AST(SGOT) (test code = 32 U/L 13-40 3846705160) eGFR (test code = mL/min/1.73m2 6846923687) JUAN DAVID (test code = JUAN DAVID) [...] tests). Lab Interpretation Abnormal (test code = 09152-2) [facility], 1 VIEW, NON [id number] 23:20:00[facility] : 1960 Sex: MFINAL REPORT Patient Name: Carrol MelendezRN: [id number]: 1960 CLINICAL HISTORY: Pain TECHNIQUE: 1 view of the chest COMPARISON: None IMPRESSION: There are no focal infiltrates or pleural effusions. The cardiomediastinal silhouette is within normal limits for size. The visualized bones are intact. Tubing projects in the upper abdomen. Signed: Chapito Zayas MDReport Verified Date/Time: 07/06/2022 23:20:47 Reading Location: [address] Reading Room TROPONIN [id number] 14:21:46 Test Item Value Reference Interpretation Comments Range TROPONIN I (test 0.003 ng/mL See_Comment [Automated code = 8886635006) message] The system which generated this result [...] biotin. Lab Interpretation Normal (test code = 94366-6) [facility] [id number] 14:21:46 Test Item Value Reference Range Interpretation Comments NT-proBNP (test code 128 pg/mL See_Comment H [Autom ated = 2450421201) message] The system which generated this result transmitted reference range : <=125. The reference range was not used to interpret this result as normal/abnormal . JUAN DAVID (test code = JUAN DAVID) Biotin has been reported to cause a negative bias, interpret results relative to patient's use of biotin. Lab Interpretation Abnormal (test code = 91073-5) [facility] [id number] 14:21:46 Test Item Value Reference Interpretation Comments Range TROPONIN I (test 0.003 ng/mL See_Comment [Automated code = 8086759514) message] The system which generated this result [...] biotin. Lab Interpretation Normal (test code = 98046-5) [facility] [id number] 14:21:46 Test Item Value Reference Range Interpretation Comments NT-proBNP (test code 128 pg/mL See_Comment H [Autom ated = 9722802028) message] The system which generated this result transmitted reference range : <=125. The reference range was not used to interpret this result as normal/abnormal . JUAN DAVID (test code = JUAN DAVID) Biotin has been reported to cause a negative bias, interpret results relative to patient's use of biotin. Lab Interpretation Abnormal (test code = 90882-5) [facility] [id number] 14:21:46 Test Item Value Reference Interpretation Comments Range TROPONIN I (test 0.003 ng/mL See_Comment [Automated code = 8270958823) message] The system which generated this result [...] biotin. Lab Interpretation Normal (test code = 62352-1) [facility] [id number] 14:21:46 Test Item Value Reference Range Interpretation Comments NT-proBNP (test code 128 pg/mL See_Comment H [Autom ated = 3919519268) message] The system which generated this result transmitted reference range : <=125. The reference range was not used to interpret this result as normal/abnormal . JUAN DAVID (test code = JUAN DAVID) Biotin has been reported to cause a negative bias, interpret results relative to patient's use of biotin. Lab Interpretation Abnormal (test code = 25488-1) [facility] [id number] 14:21:46 Test Item Value Reference Interpretation Comments Range TROPONIN I (test 0.003 ng/mL See_Comment [Automated code = 2621676920) message] The system which generated this result [...] biotin. Lab Interpretation Normal (test code = 88551-7) [facility] [id number] 14:21:46 Test Item Value Reference Range Interpretation Comments NT-proBNP (test code 128 pg/mL See_Comment H [Autom ated = 9895346155) message] The system which generated this result transmitted reference range : <=125. The reference range was not used to interpret this result as normal/abnormal . JUAN DAVID (test code = JUAN DAVID) Biotin has been reported to cause a negative bias, interpret results relative to patient's use of biotin. Lab Interpretation Abnormal (test code = 88441-3) [facility] [id number] 14:21:46 Test Item Value Reference Interpretation Comments Range TROPONIN I (test 0.003 ng/mL See_Comment [Automated code = 1131926797) message] The system which generated this result [...] biotin. Lab Interpretation Normal (test code = 08949-1) [facility] [id number] 14:21:46 Test Item Value Reference Range Interpretation Comments NT-proBNP (test code 128 pg/mL See_Comment H [Autom ated = 0567805700) message] The system which generated this result transmitted reference range : <=125. The reference range was not used to interpret this result as normal/abnormal . JUAN DAVID (test code = JUAN DAVID) Biotin has been reported to cause a negative bias, interpret results relative to patient's use of biotin. Lab Interpretation Abnormal (test code = 95908-8) [facility] [id number] 14:21:46 Test Item Value Reference Interpretation Comments Range TROPONIN I (test 0.003 ng/mL See_Comment [Automated code = 0360172227) message] The system which generated this result [...] biotin. Lab Interpretation Normal (test code = 25184-1) [facility] [id number] 14:21:46 Test Item Value Reference Range Interpretation Comments NT-proBNP (test code 128 pg/mL See_Comment H [Autom ated = 5371859458) message] The system which generated this result transmitted reference range : <=125. The reference range was not used to interpret this result as normal/abnormal . JUAN DAVID (test code = JUAN DAVID) Biotin has been reported to cause a negative bias, interpret results relative to patient's use of biotin. Lab Interpretation Abnormal (test code = 80582-2) [facility] [id number] 14:21:46 Test Item Value Reference Interpretation Comments Range TROPONIN I (test 0.003 ng/mL See_Comment [Automated code = 4816004406) message] The system which generated this result [...] biotin. Lab Interpretation Normal (test code = 61660-3) [facility] [id number] 14:21:46 Test Item Value Reference Range Interpretation Comments NT-proBNP (test code 128 pg/mL See_Comment H [Autom ated = 0030825863) message] The system which generated this result transmitted reference range : <=125. The reference range was not used to interpret this result as normal/abnormal . JUAN DAVID (test code = JUAN DAVID) Biotin has been reported to cause a negative bias, interpret results relative to patient's use of biotin. Lab Interpretation Abnormal (test code = 47807-9) [facility] [id number] 14:21:46 Test Item Value Reference Interpretation Comments Range TROPONIN I (test 0.003 ng/mL See_Comment [Automated code = 8262233062) message] The system which generated this result [...] biotin. Lab Interpretation Normal (test code = 03241-2) [facility]-[id number] 14:21:46 Test Item Value Reference Range Interpretation Comments NT-proBNP (test code 128 pg/mL See_Comment H [Autom ated = 9695752054) message] The system which generated this result transmitted reference range : <=125. The reference range was not used to interpret this result as normal/abnormal . JUAN DAVID (test code = JUAN DAVID) Biotin has been reported to cause a negative bias, interpret results relative to patient's use of biotin. Lab Interpretation Abnormal (test code = 82934-3) [facility] 12:14:22 Test Item Value Reference Range Interpretation Comments MAGNESIUM (test code = 3510549159) 1.8 mg/dL 1.7-2.4 Lab Interpretation (test code = Normal 91966-6) [facility] (NA, K, CL, CO2, GLUCOSE, BUN, CREATININE, CA)2022-06-26 12:14:22 Test Item Value Reference Range Interpretation Comments NA (test code = 134 mmol/L 135-145 L 3660675036) K (test code = 3.9 mmol/L 3.5-5 4212467814) CL (test code = 101 mmol/L 98-108 9100481037) CO2 TOTAL (test code = 27 mmol/L 23-31 7050722356) AGAP (test code = 2-16 6365518155) BUN (test code = 7 mg/dL 7-23 8375330973) GLUCOSE (test code = 108 mg/dL 70-110 8563593600) CREATININE (test code = 0.74 mg/dL 0.6-1.25 3811708502) CALCIUM (test code = 8.4 mg/dL 8.6-10.6 L 9246759839) eGFR (test code = mL/min/1.73m2 2100862498) JUAN DAVID (test code = JUAN DAVID) [...] tests). Lab Interpretation Abnormal (test code = 22657-5) [facility] METABOLIC PANEL (NA, K, CL, CO2, GLUCOSE, BUN, CREATININE, CA)2022-06-26 12:14:22 Test Item Value Reference Range Interpretation Comments NA (test code = 134 mmol/L 135-145 L 7616658220) K (test code = 3.9 mmol/L 3.5-5 0932349806) CL (test code = 101 mmol/L 98-108 7298206674) CO2 TOTAL (test code = 27 mmol/L 23-31 7567651131) AGAP (test code = 2-16 9424402237) BUN (test code = 7 mg/dL 7-23 6097146896) GLUCOSE (test code = 108 mg/dL 70-110 0739033419) CREATININE (test code = 0.74 mg/dL 0.6-1.25 9164075295) CALCIUM (test code = 8.4 mg/dL 8.6-10.6 L 1180207935) eGFR (test code = mL/min/1.73m2 8001484341) JUAN DAVID (test code = JUAN DAVID) [...] tests). Lab Interpretation Abnormal (test code = 97861-5) [facility] Test Item Value Reference Range Interpretation Comments MAGNESIUM (test code = 2394851419) 1.8 mg/dL 1.7-2.4 Lab Interpretation (test code = Normal 70219-1) [facility]-[id number] 12:02:19 Test Item Value Reference Interpretation Comments Range D-DIMER (test code = See_Comment H [Autom ated 8552531280) message] The system which generated this result [...] diagnosis. Lab Interpretation Abnormal (test code = 46856-5) [facility]-[id number] 12:02:19 Test Item Value Reference Interpretation Comments Range D-DIMER (test code = See_Comment H [Autom ated 0630646422) message] The system which generated this result [...] diagnosis. Lab Interpretation Abnormal (test code = 53935-2) [facility]-[id number] 12:02:19 Test Item Value Reference Interpretation Comments Range D-DIMER (test code = See_Comment H [Autom ated 1563102178) message] The system which generated this result [...] diagnosis. Lab Interpretation Abnormal (test code = 77868-1) [facility]-[id number] 12:02:19 Test Item Value Reference Interpretation Comments Range D-DIMER (test code = See_Comment H [Autom ated 4395484621) message] The system which generated this result [...] diagnosis. Lab Interpretation Abnormal (test code = 47132-8) [facility]-[id number] 12:02:19 Test Item Value Reference Interpretation Comments Range D-DIMER (test code = See_Comment H [Autom ated 8164740868) message] The system which generated this result [...] diagnosis. Lab Interpretation Abnormal (test code = 69639-0) [facility]-[id number] 12:02:19 Test Item Value Reference Interpretation Comments Range D-DIMER (test code = See_Comment H [Autom ated 0824072867) message] The system which generated this result [...] diagnosis. Lab Interpretation Abnormal (test code = 60508-3) [facility]-[id number] 12:02:19 Test Item Value Reference Interpretation Comments Range D-DIMER (test code = See_Comment H [Autom ated 3873702380) message] The system which generated this result [...] diagnosis. Lab Interpretation Abnormal (test code = 35139-8) [facility]-[id number] 12:02:19 Test Item Value Reference Interpretation Comments Range D-DIMER (test code = See_Comment H [Autom ated 0588864090) message] The system which generated this result [...] diagnosis. Lab Interpretation Abnormal (test code = 94471-2) [facility] WITH [id number] 11:51:18 Test Item Value Reference Range Interpretation [...] RDW-SD (test code = 42.1 fL 38.5-51.6 99473-8) RDW-CV (test code = 13.3 % 12.1-15.4 788-0) PLT (test code = See_Comment L [Automated 777-3) message] The sy stem which generated this result transmitted reference range : 150 - 328 10*3/ ?L. The reference r helen was not used to interpret this result as normal/abnormal . MPV (test code = 10.5 fL 9.8-13 57275-3) NRBC/100 WBC (test See_Comment [Automat ed code = 1927571408) message] The system which generated this result transmitted reference range : 0.0 - 10.0 /100 WBCs. The refer ence range was not u sed to interpret th is result as normal/abnormal . NRBC x10^3 (test code See_Comment [Auto mated = 6753608021) message] The s ystem which generated this result transmitted reference range : 10*3/?L. The reference range was not used to interpret this result as normal/abnormal . GRAN MAT (NEUT) % 74.2 % (test code = 770-8) IMM GRAN % (test code 0.90 % = 1895194395) LYMPH % (test code = 14.4 % 736-9) MONO % (test code = 9.7 % 5905-5) EOS % (test code = 0.4 % 713-8) BASO % (test code = 0.4 % 706-2) GRAN MAT x10^3(ANC) 4.07 10*3/uL 1.99-6.95 (test code = 3310602207) IMM GRAN x10^3 (test 0.05 10*3/uL 0-0.06 code = 6496870853) LYMPH x10^3 (test code 0.79 10*3/uL 1.09-3.23 L = 731-0) MONO x10^3 (test code 0.53 10*3/uL 0.36-1.02 = 742-7) EOS x10^3 (test code = 0.06-0.53 L 711-2) BASO x10^3 (test code 0.01-0.09 = 704-7) Lab Interpretation Abnormal (test code = 79556-6) [facility] WITH [id number] 11:51:18 Test Item Value Reference Range Interpretation [...] RDW-SD (test code = 42.1 fL 38.5-51.6 24892-6) RDW-CV (test code = 13.3 % 12.1-15.4 788-0) PLT (test code = See_Comment L [Automated 777-3) message] The sy stem which generated this result transmitted reference range : 150 - 328 10*3/ ?L. The reference r helen was not used to interpret this result as normal/abnormal . MPV (test code = 10.5 fL 9.8-13 78533-2) NRBC/100 WBC (test See_Comment [Automat ed code = 5457055484) message] The system which generated this result transmitted reference range : 0.0 - 10.0 /100 WBCs. The refer ence range was not u sed to interpret th is result as normal/abnormal . NRBC x10^3 (test code See_Comment [Auto mated = 8009950272) message] The s ystem which generated this result transmitted reference range : 10*3/?L. The reference range was not used to interpret this result as normal/abnormal . GRAN MAT (NEUT) % 74.2 % (test code = 770-8) IMM GRAN % (test code 0.90 % = 8330623946) LYMPH % (test code = 14.4 % 736-9) MONO % (test code = 9.7 % 5905-5) EOS % (test code = 0.4 % 713-8) BASO % (test code = 0.4 % 706-2) GRAN MAT x10^3(ANC) 4.07 10*3/uL 1.99-6.95 (test code = 9689490012) IMM GRAN x10^3 (test 0.05 10*3/uL 0-0.06 code = 7633077345) LYMPH x10^3 (test code 0.79 10*3/uL 1.09-3.23 L = 731-0) MONO x10^3 (test code 0.53 10*3/uL 0.36-1.02 = 742-7) EOS x10^3 (test code = 0.06-0.53 L 711-2) BASO x10^3 (test code 0.01-0.09 = 704-7) Lab Interpretation Abnormal (test code = 91323-3) [facility]70117[facility] (ALB,T.PRO,BILI T,BU/BC,ALT,AST,ALK PHOS)2022-06-25 23:34:17 Test Item Value Reference Range Interpretation Comments TOTAL BILI (test code = 9775990669) 0.5 mg/dL 0.1-1.1 BILI UNCON (test code = 5441803080) 0.2 mg/dL 0.1-1.1 BILI CONJ (test code = 9853542846) 0.0 mg/dL 0-0.3 T PROTEIN (test code = 9176048456) 5.9 g/dL 6.3-8.2 L ALBUMIN (test code = 9831380278) 3.3 g/dL 3.5-5 L ALK PHOS (test code = 1439278290) 256 U/L 34-122 H ALTv (test code = 1742-6) 168 U/L 5-50 H AST(SGOT) (test code = 0199512111) 151 U/L 13-40 H Lab Interpretation (test code = Abnormal 32797-0) [facility] (08874) (ALB,T.PRO,BILI T,BU/BC,ALT,AST,ALK PHOS)2022-06-25 23:34:17 Test Item Value Reference Range Interpretation Comments TOTAL BILI (test code = 0373950176) 0.5 mg/dL 0.1-1.1 BILI UNCON (test code = 3652014493) 0.2 mg/dL 0.1-1.1 BILI CONJ (test code = 4646063763) 0.0 mg/dL 0-0.3 T PROTEIN (test code = 5360260247) 5.9 g/dL 6.3-8.2 L ALBUMIN (test code = 8892226603) 3.3 g/dL 3.5-5 L ALK PHOS (test code = 6068760602) 256 U/L 34-122 H ALTv (test code = 1742-6) 168 U/L 5-50 H AST(SGOT) (test code = 3543227170) 151 U/L 13-40 H Lab Interpretation (test code = Abnormal 73083-0) [facility] (39620) (ALB,T.PRO,BILI T,BU/BC,ALT,AST,ALK PHOS)2022-06-25 23:34:17 Test Item Value Reference Range Interpretation Comments TOTAL BILI (test code = 7357090734) 0.5 mg/dL 0.1-1.1 BILI UNCON (test code = 1640299782) 0.2 mg/dL 0.1-1.1 BILI CONJ (test code = 2157082675) 0.0 mg/dL 0-0.3 T PROTEIN (test code = 4784046985) 5.9 g/dL 6.3-8.2 L ALBUMIN (test code = 0232472385) 3.3 g/dL 3.5-5 L ALK PHOS (test code = 7399987932) 256 U/L 34-122 H ALTv (test code = 1742-6) 168 U/L 5-50 H AST(SGOT) (test code = 6557193343) 151 U/L 13-40 H Lab Interpretation (test code = Abnormal 96805-5) [facility] GLUCOSE (AUTOMATED)2022-06-25 20:16:06 Test Item Value Reference Range Interpretation Comments POCT GLU (test code = 5207813423) 110 mg/dL 70-110 Lab Interpretation (test code = Normal 40891-5) [facility] GLUCOSE (AUTOMATED)2022-06-25 20:16:06 Test Item Value Reference Range Interpretation Comments POCT GLU (test code = 2753973009) 110 mg/dL 70-110 Lab Interpretation (test code = Normal 58126-3) [facility] GLUCOSE (AUTOMATED)2022-06-25 20:16:06 Test Item Value Reference Range Interpretation Comments POCT GLU (test code = 5896641167) 110 mg/dL 70-110 Lab Interpretation (test code = Normal 57300-4) [facility] GLUCOSE (AUTOMATED)2022-06-25 20:16:06 Test Item Value Reference Range Interpretation Comments POCT GLU (test code = 2364078999) 110 mg/dL 70-110 Lab Interpretation (test code = Normal 92524-4) [facility] GLUCOSE (AUTOMATED)2022-06-25 20:16:06 Test Item Value Reference Range Interpretation Comments POCT GLU (test code = 5686392247) 110 mg/dL 70-110 Lab Interpretation (test code = Normal 22025-7) [facility] GLUCOSE (AUTOMATED)2022-06-25 20:16:06 Test Item Value Reference Range Interpretation Comments POCT GLU (test code = 5184600848) 110 mg/dL 70-110 Lab Interpretation (test code = Normal 00467-6) [facility] GLUCOSE (AUTOMATED)2022-06-25 20:16:06 Test Item Value Reference Range Interpretation Comments POCT GLU (test code = 2681012258) 110 mg/dL 70-110 Lab Interpretation (test code = Normal 55726-3) [facility] GLUCOSE (AUTOMATED)2022-06-25 20:16:06 Test Item Value Reference Range Interpretation Comments POCT GLU (test code = 3861529190) 110 mg/dL 70-110 Lab Interpretation (test code = Normal 54019-9) [facility] / [id number] 07:29:57 Test Item Value Reference Range Interpretation Comments PROTIME PATIENT (test See_Comment [Auto mated message] code = 5964-2) The system [employer] generated this result transmitted ref erence range: 10.1 - 1 2.6 Seconds. The re ference range was not u sed to interpret this result as normal/abnor mal. INR (test code = 6301-6) Nor mal INR <1.1; Warfarin Therap eutic range 2.0 to 3. 0 or 2.5 to 3.5, dep ending upon the indica tions. Lab Interpretation (test Normal code = 58463-0) [facility] / [id number] 07:29:57 Test Item Value Reference Range Interpretation Comments PROTIME PATIENT (test See_Comment [Auto mated message] code = 5964-2) The system [employer] generated this result transmitted ref erence range: 10.1 - 1 2.6 Seconds. The re ference range was not u sed to interpret this result as normal/abnor mal. INR (test code = 6301-6) Nor mal INR <1.1; Warfarin Therap eutic range 2.0 to 3. 0 or 2.5 to 3.5, dep ending upon the indica tions. Lab Interpretation (test Normal code = 66109-0) [facility]. METABOLIC PANEL (51055)2022-06-20 07:17:55 Test Item Value Reference Range Interpretation Comments NA (test code = 135 mmol/L 135-145 9147901081) K (test code = 4.4 mmol/L 3.5-5 6183101126) CL (test code = 99 mmol/L 98-108 3600171706) CO2 TOTAL (test code = 25 mmol/L 23-31 5162470064) AGAP (test code = 2-16 1043160306) BUN (test code = 13 mg/dL 7-23 3713160011) GLUCOSE (test code = 76 mg/dL 70-110 9742585296) CREATININE (test code = 0.79 mg/dL 0.6-1.25 6125481630) TOTAL BILI (test code = 0.3 mg/dL 0.1-1.4 9263013798) CALCIUM (test code = 8.5 mg/dL 8.6-10.6 L 8201268717) T PROTEIN (test code = 6.0 g/dL 6.3-8.2 L 2179807694) ALBUMIN (test code = 3.4 g/dL 3.5-5 L 2289227331) ALK PHOS (test code = 253 U/L 34-122 H 2501028762) ALTv (test code = 62 U/L 5-50 H 1742-6) AST(SGOT) (test code = 33 U/L 13-40 2517648399) eGFR (test code = mL/min/1.73m2 5800563168) JUAN DAVID (test code = JUAN DAVID) [...] tests). Lab Interpretation Abnormal (test code = 96187-7) [facility]. METABOLIC PANEL (87779)2022-06-20 07:17:55 Test Item Value Reference Range Interpretation Comments NA (test code = 135 mmol/L 135-145 5810301384) K (test code = 4.4 mmol/L 3.5-5 8095937293) CL (test code = 99 mmol/L 98-108 5089325497) CO2 TOTAL (test code = 25 mmol/L 23-31 7017897584) AGAP (test code = 2-16 4576623226) BUN (test code = 13 mg/dL 7-23 9309007420) GLUCOSE (test code = 76 mg/dL 70-110 0934930862) CREATININE (test code = 0.79 mg/dL 0.6-1.25 3765285940) TOTAL BILI (test code = 0.3 mg/dL 0.1-1.1 2999943651) CALCIUM (test code = 8.5 mg/dL 8.6-10.6 L 3237343133) T PROTEIN (test code = 6.0 g/dL 6.3-8.2 L 1775078945) ALBUMIN (test code = 3.4 g/dL 3.5-5 L 1146745009) ALK PHOS (test code = 253 U/L 34-122 H 6683901986) ALTv (test code = 62 U/L 5-50 H 1742-6) AST(SGOT) (test code = 33 U/L 13-40 8051519243) eGFR (test code = mL/min/1.73m2 2446508453) JUAN DAVID (test code = JUAN DAVID) [...] tests). Lab Interpretation Abnormal (test code = 71970-3) [facility] WITH [id number] 06:57:57 Test Item Value Reference Range Interpretation [...] RDW-SD (test code = 38.6 fL 38.5-51.6 77068-2) RDW-CV (test code = 12.3 % 12.1-15.4 788-0) PLT (test code = See_Comment [Automated 777-3) message] The sy stem which generated this result transmitted reference range : 150 - 328 10*3/ ?L. The reference r helen was not used to interpret this result as normal/abnormal . MPV (test code = 10.1 fL 9.8-13 24784-5) NRBC/100 WBC (test See_Comment [Automat ed code = 3150494899) message] The system which generated this result transmitted reference range : 0.0 - 10.0 /100 WBCs. The refer ence range was not u sed to interpret th is result as normal/abnormal . NRBC x10^3 (test code See_Comment [Auto mated = 6328862981) message] The s ystem which generated this result transmitted reference range : 10*3/?L. The reference range was not used to interpret this result as normal/abnormal . GRAN MAT (NEUT) % 53.0 % (test code = 770-8) IMM GRAN % (test code 1.10 % = 5818764442) LYMPH % (test code = 31.8 % 736-9) MONO % (test code = 13.1 % 5905-5) EOS % (test code = 0.6 % 713-8) BASO % (test code = 0.4 % 706-2) GRAN MAT x10^3(ANC) 2.46 10*3/uL 1.99-6.95 (test code = 1958574820) IMM GRAN x10^3 (test 0.05 10*3/uL 0-0.06 code = 7655823165) LYMPH x10^3 (test code 1.48 10*3/uL 1.09-3.23 = 731-0) MONO x10^3 (test code 0.61 10*3/uL 0.36-1.02 = 742-7) EOS x10^3 (test code = 0.03 10*3/uL 0.06-0.53 L 711-2) BASO x10^3 (test code 0.01-0.09 = 704-7) Lab Interpretation Abnormal (test code = 27738-2) [facility] WITH [id number] 06:57:57 Test Item Value Reference Range Interpretation Comments WBC (test code = See_Comment [Automated 6990-2) message] The sy stem which generated this result transmitted reference range : 4.20 - 10.70 10*3/?L. The reference range was not used to interpret this result as normal/abnormal . RBC (test code = See_Comment L [Automated 839-8) message] The sy stem which generated this [...] RDW-SD (test code = 38.6 fL 38.5-51.6 83476-4) RDW-CV (test code = 12.3 % 12.1-15.4 788-0) PLT (test code = See_Comment [Automated 127-3) message] The sy stem which generated this result transmitted reference range : 150 - 328 10*3/ ?L. The reference r helen was not used to interpret this result as normal/abnormal . MPV (test code = 10.1 fL 9.8-13 93072-8) NRBC/100 WBC (test See_Comment [Automat ed code = 7282195774) message] The system which generated this result transmitted reference range : 0.0 - 10.0 /100 WBCs. The refer ence range was not u sed to interpret th is result as normal/abnormal . NRBC x10^3 (test code See_Comment [Auto mated = 2690160920) message] The s ystem which generated this result transmitted reference range : 10*3/?L. The reference range was not used to interpret this result as normal/abnormal . GRAN MAT (NEUT) % 53.0 % (test code = 770-8) IMM GRAN % (test code 1.10 % = 2685555700) LYMPH % (test code = 31.8 % 736-9) MONO % (test code = 13.1 % 5905-5) EOS % (test code = 0.6 % 713-8) BASO % (test code = 0.4 % 706-2) GRAN MAT x10^3(ANC) 2.46 10*3/uL 1.99-6.95 (test code = 3553460193) IMM GRAN x10^3 (test 0.05 10*3/uL 0-0.06 code = 3735699828) LYMPH x10^3 (test code 1.48 10*3/uL 1.09-3.23 = 731-0) MONO x10^3 (test code 0.61 10*3/uL 0.36-1.02 = 742-7) EOS x10^3 (test code = 0.03 10*3/uL 0.06-0.53 L 711-2) BASO x10^3 (test code 0.01-0.09 = 704-7) Lab Interpretation Abnormal (test code = 09958-7) [facility] [id number] 21:25:38 Test Item Value Reference Range Interpretation Comments LACTIC ACID (test code = 0.77 mmol/L 0.5-2.2 7831116537) Lab Interpretation (test code = Normal 55442-2) [facility] [id number] 21:25:38 Test Item Value Reference Range Interpretation Comments LACTIC ACID (test code = 0.77 mmol/L 0.5-2.2 8385433093) Lab Interpretation (test code = Normal 38843-5) [facility] Acid Whole [id number] 21:25:38 Test Item Value Reference Range Interpretation Comments LACTIC ACID (test code = 0.77 mmol/L 0.5-2.2 5385898760) Lab Interpretation (test code = Normal 99377-0) [facility] Acid Whole [id number] 21:25:38 Test Item Value Reference Range Interpretation Comments LACTIC ACID (test code = 0.77 mmol/L 0.5-2.2 1215968344) Lab Interpretation (test code = Normal 99327-9) [facility] Acid Whole [id number] 21:25:38 Test Item Value Reference Range Interpretation Comments LACTIC ACID (test code = 0.77 mmol/L 0.50-2.20 2959626988) Lab Interpretation (test code = Normal 34030-7) [facility] fluid culture + gram [id number] 20:31:19 Test Item Value Reference Range Interpretation Comments Result (test code = 6463-4) No growth Gram Stain Result (test No organisms seen code = 1123) [facility] fluid culture + gram [id number] 20:31:19 Test Item Value Reference Range Interpretation Comments Result (test code = 6463-4) No growth Gram Stain Result (test No organisms seen code = 1123) [facility] [id number] 20:31:19 Test Item Value Reference Range Interpretation Comments Result (test code = 6463-4) No growth Gram Stain Result (test No organisms seen code = 1123) [facility] fluid culture + gram [id number] 20:31:19 Test Item Value Reference Range Interpretation Comments Result (test code = 6463-4) No growth Gram Stain Result (test No organisms seen code = 1123) [facility] [id number] 20:31:19 Test Item Value Reference Range Interpretation Comments Result (test code = 6463-4) No growth Gram Stain Result (test No organisms seen code = 1123) [facility]AM [id number] 20:31:19 Test Item Value Reference Range Interpretation Comments CULTURE (BEAKER) (test code No growth = 1095) GRAM STAIN RESULT (BEAKER) <1+ WBCs (test code = 1123) GRAM STAIN RESULT (BEAKER) No organisms seen (test code = 85086) COMPREHENSIVE METABOLIC [id number] 05:27:55 Test Item Value Reference Range Interpretation [...] not appl icable for dialysis patien ts [employer] ID - MERRY MCBC W/PLT COUNT & AUTO [id number] 05:18:09 Test Item Value Reference Range Interpretation [...] (BEAKER) (test code = 2801) ANG, ABSCESS [id number] 08:52:00Reason for exam:->bili[facility] : 1960 Sex: MFINAL [...] the patient's medical record by the nurse. Nuclear Fuels Reclamation Engineer:Robel Elizalde MD. Budget Consultant: Theresa Doe MD (Fellow) Approach: Upper abdomen, [...] The tract was dilated and a 8.5 Uzbek drainage catheter advanced over with pigtail formed [...] collection drainage with placement of a 8.5 Uzbek pigtail drainage catheter as detailed above. Signed: [...] not appl icable for dialysis patien ts [employer] ID - PIAYA LCBC W/PLT COUNT & AUTO [id number] 04:05:39 Test Item Value Reference Range Interpretation [...] PERCENT (BEAKER) (test code = 2801) PROTHROMBIN TIME/[id number] 06:26:26 Test Item Value Reference Range Interpretation Comments PROTIME (BEAKER) 15.1 seconds 11.9-14.2 H (test code = 759) INR (BEAKER) (test 1.26 See_Comment [Automat ed message] code = 370) The system [employer] generated this result transmitted ref erence range: [...] not appl icable for dialysis patien ts [employer] ID - YOU WCBC W/PLT COUNT & AUTO [id number] 05:34:36 Test Item Value Reference Range Interpretation [...] SARS-Co V-2 (test code = target nucleic 36200-9) acids are not detected in thi s [...] revoked sooner. Fact Sheet for Healthcare Providers: https://www.[employer]/Documents/Xp ert%20Xpress%20SAR S%20CoV-2/Fact%20S heets/263-8807%20S ARS-COV-2%20HEALTH CARE%20PROVIDERS%2 0FACT%20SHEET.pdf Fact Sheet for Healthcare Patients: https://www.[employer]/Documents/Xp ert%20Xpress%20SAR S%20CoV-2/Fact%20S heets/302-3801%20S ARS-COV-2%20PATIEN T%20FACT%20SHEET.p df Lab Interpretation Normal (test code = 58000-1) [facility]22-[facility]-15 12:45:15 Test Item Value Reference Interpretation Comments Range SARS-COV2/RT-PCR Negative Negative The SARS-Co V-2 (test code = target nucleic 52976-7) acids are not detected in thi s [...] revoked sooner. Fact Sheet for Healthcare Providers: https://www.[employer]/Documents/Xp ert%20Xpress%20SAR S%20CoV-2/Fact%20S heets/302-3802%20S ARS-COV-2%20HEALTH CARE%20PROVIDERS%2 0FACT%20SHEET.pdf Fact Sheet for Healthcare Patients: https://www.[employer]/Documents/Xp ert%20Xpress%20SAR S%20CoV-2/Fact%20S heets/302-3801%20S ARS-COV-2%20PATIEN T%20FACT%20SHEET.p df Lab Interpretation Normal (test code = 92272-1) [facility]2022-05-15 12:45:15 Test Item Value Reference Interpretation Comments Range SARS-COV2/RT-PCR Negative Negative The SARS-Co V-2 (test code = target nucleic 93570-7) acids are not detected in thi s [...] revoked sooner. Fact Sheet for Healthcare Providers: https://www.[employer]/Documents/Xp ert%20Xpress%20SAR S%20CoV-2/Fact%20S heets/3023802%20S ARS-COV-2%20HEALTH CARE%20PROVIDERS%2 0FACT%20SHEET.pdf Fact Sheet for Healthcare Patients: [email or web address].[email or web address] [place]/Documents/Xp ert%20Xpress%20SAR S%20CoV-2/Fact%20S heets/3023801%20S ARS-COV-2%20PATIEN T%20FACT%20SHEET.p df Lab Interpretation Normal (test code = 07905-3) [facility]15 12:45:15 Test Item Value Reference Interpretation Comments Range SARS-COV2/RT-PCR Negative Negative The SARS-Co V-2 (test code = target nucleic 44301-4) acids are not detected in thi s [...] revoked sooner. Fact Sheet for Healthcare Providers: https://www.[employer] [place]/Documents/Xp ert%20Xpress%20SAR S%20CoV-2/Fact%20S heets/302-3802%20S ARS-COV-2%20HEALTH CARE%20PROVIDERS%2 0FACT%20SHEET.pdf Fact Sheet for Healthcare Patients: https://www.[employer] [place]/Documents/Xp ert%20Xpress%20SAR S%20CoV-2/Fact%20S heets/302-3801%20S ARS-COV-2%20PATIEN T%20FACT%20SHEET.p df Lab Interpretation Normal (test code = 18567-6) [facility]22-05-15 12:45:15 Test Item Value Reference Interpretation Comments Range SARS-COV2/RT-PCR Negative Negative The SARS-Co V-2 (test code = target nucleic 09891-4) acids are not detected in thi s [...] revoked sooner. Fact Sheet for Healthcare Providers: https://www.[employer] [place]/Documents/Xp ert%20Xpress%20SAR S%20CoV-2/Fact%20S heets/302-3802%20S ARS-COV-2%20HEALTH CARE%20PROVIDERS%2 0FACT%20SHEET.pdf Fact Sheet for Healthcare Patients: https://www.[employer] [place]/Documents/Xp ert%20Xpress%20SAR S%20CoV-2/Fact%20S heets/302-3801%20S ARS-COV-2%20PATIEN T%20FACT%20SHEET.p df Lab Interpretation Normal (test code = 73473-3) [facility])2022-05-15 12:45:15 Test Item Value Reference Range Interpretation Comments SARS-COV2/RT-PCR Negative Negative The SARS-Co V-2 target (test code = nucleic acids a re not 4296788) detected in thi s specimen. Negative result [...] individuals suspected of CO VID-19 by their [facility]. This test has been authorized [...] revoked sooner. Fact Sheet for Healthcare Providers: https://www.[employer]/Documents/Xpert%20Xpress%20SARS%20CoV-2/Fact%20Sheets/302-3802%05NKAK-IIF-8%20 HEALTHCARE%20PROVIDERS%20FACT%20SHEET.pdf Fact Sheet for Healthcare Patients: https://www.[employer]/Documents/Xpert%20Xp ress%20SARS%20CoV-2/Fact%20Sheets/302-3801%53RTOL-JFX-4%20PATIENT%20FACT%20SHEET .[id number] 02:48:18 Test Item Value Reference Range Interpretation Comments MAGNESIUM (BEAKER) (test code = 1.9 mg/dL 1.6-2.6 627) [employer] - WALLY [id number] 02:48:18 Test Item Value Reference Range Interpretation Comments PHOSPHORUS (BEAKER) (test code = 2.3 mg/dL 2.3-4.7 604) [employer] - WALLY MHEPATIC FUNCTION [id number] 02:48:18 Test Item Value Reference Range Interpretation [...] (test code = 28 U/L 6-55 347) [employer] - WALLY ASIC METABOLIC [id number] 02:48:17 Test Item Value Reference Range Interpretation [...] not appl icable for dialysis patien ts [employer] - WALLY MPROTHROMBIN [id number] 01:51:51 Test Item Value Reference Range Interpretation Comments PROTIME (BEAKER) 13.9 seconds 11.9-14.2 (test code = 759) INR (BEAKER) (test 1.13 See_Comment [Automat ed message] code = 370) The system [employer] generated this result transmitted ref erence range: <=5.90. The reference range was not used to int erpret this result as normal/abnormal . RECOMMENDED COUMADIN/WARFARIN INR THERAPY RANGESSTANDARD DOSE: 2.0 - 3.0 Includes: PROPHYLAXIS for venous thrombosis, systemic embolization; TREATMENT for venous thrombosis and/or pulmonary embolus.HIGH RISK: Target INR is 2.5-3.5 for patients with mechanical heart valves.CBC W/PLT COUNT & AUTO [id number] 01:43:47 Test Item Value Reference Range Interpretation [...] (BEAKER) (test code = 2801) BASIC METABOLIC [id number] 04:05:58 Test Item Value Reference Range Interpretation [...] not appl icable for dialysis patien ts [employer] Anatoliy ORTA [id number] 04:05:58 Test Item Value Reference Range Interpretation Comments MAGNESIUM (BEAKER) (test code = 2.2 mg/dL 1.6-2.6 627) [employer] Anatoliy ORTA WLIPID [id number] 04:05:58 Test Item Value Reference Range Interpretation [...] Borderline 130-159 High 160-189 Very High >=190 [employer] Anatoliy ORTA WHEPATIC FUNCTION [id number] 04:05:58 Test Item Value Reference Range Interpretation [...] (test code = 54 U/L 6-55 347) [employer] Anatoliy ORTA WCBC W/PLT COUNT & AUTO [id number] 03:45:31 Test Item Value Reference Range Interpretation [...] PERCENT (BEAKER) (test code = 2801) CT, [id number] 20:34:00Unlisted Reason for Exam - Click Yes and Enter Reason Below->NoIs this for enterography?->NoWill this procedure require oral contrast?->No [facility] 1960 Sex: MFINAL [...] not appl icable for dialysis patien ts [employer] ID - MERRY [facility]BC (HEMOGRAM ONLY)2022-05-10 03:55:35 [...] SARS-Co V-2 (test code = target nucleic 97391-0) acids are not detected in thi s [...] revoked sooner. Fact Sheet for Healthcare Providers: https://www.[employer] [place]/Documents/Xp ert%20Xpress%20SAR S%20CoV-2/Fact%20S heets/302-3802%20S ARS-COV-2%20HEALTH CARE%20PROVIDERS%2 0FACT%20SHEET.pdf Fact Sheet for Healthcare Patients: https://www.[employer] [place]/Documents/Xp ert%20Xpress%20SAR S%20CoV-2/Fact%20S heets/302-3801%20S ARS-COV-2%20PATIEN T%20FACT%20SHEET.p df Lab Interpretation Normal (test code = 87924-4) [facility])2022-05-10 03:50:54 Test Item Value Reference Range Interpretation Comments SARS-COV2/RT-PCR Negative Negative The SARS-Co V-2 target (test code = nucleic acids a re not 9491108) detected in thi s specimen. Negative result [...] revoked sooner. Fact Sheet for Healthcare Providers: https://www.[employer] m/Documents/Xpert%20Xpress%20SARS%20CoV-2/Fact%20Sheets/302-3802%62QDAJ-JMT-4%20 HEALTHCARE%20PROVIDERS%20FACT%20SHEET.pdf Fact Sheet for Healthcare Patients: https://www.[employer]/Documents/Xpert%20Xp ress%20SARS%20CoV-2/Fact%20Sheets/302-3801%80HZCV-ODD-8%20PATIENT%20FACT%20SHEET .pdf- XR CHEST 2 [id number] 00:00:00 [facility] : 1960 Sex: M FAX: Jordan Ledezma MD [phone] [place]: St: REG FAX: Y Ashvin Carter MD [phone] Name: CARROL ANNE [facility] : 1960 Age/S: 61/M [address] [place] [address] Blvd Unit #: [id number] Loc: [place], [place] [address]Pqfy: Ashvin Carter MD Acct: [id number] Dis Date: Status: REG CLI PHONE #: [phone] Exam Date: 01/07/2022 1508 FAX #: [phone] Reason: CLL EXAMS: CPT CODE: [id number] XR CHEST 2 V 30128 PROCEDURE INFORMATION: Exam: XR Chest Exam date [...] Technologist: Fang Herrera RT(R) Trnscrd Date/Time/By: 01/07/2022 (979) : By: Kobe Orig Print D/T: S: 01/07/2022 (1749) PAGE 1 Signed Report
[2023-02-17] MEDS ORDERED: CEFTRIAXONE 1000 MG/VIAL ONE (08:46)
[2023-02-17] MEDS ORDERED: ACETAMINOPHEN 500 MG TAB ONE (08:46)
[2023-02-17] MEDS ORDERED: NA CHLORIDE 0.9% 500 ML ONE (08:47)
[2023-02-17 09:09] LABS: Absolute Lymphocytes (CBC) 0.6 K/uL (0.7-4.9); Hematocrit 36.5 % (39.6-49.0); Lymphocytes % 6.1 % (15.3-44.8); MCV 87.1 fL (80-100); MPV 9.5 fL (7.6-11.3); RBC Red Blood Cell Count 4.19 M/uL (4.33-5.43)
[2023-02-17 09:24] LABS: Specific Gravity 1.027 (1.005-1.030); Urine Bacteria None Seen /HPF (<20); Urine Bilirubin NEGATIVE (Negative); Urine Blood 1+ (Negative); Urine Clarity Turbid (Clear); Urine Color Yellow (Yellow); Urine Glucose NEGATIVE (Negative); Urine Mucus 1+ /HPF (None Seen); Urine Protein 2+ (Negative); Urine RBC <5 /HPF (None Seen); Urine Urobilinogen Normal (Normal); Urine pH 5.5 (5.0-7.0)
[2023-02-17 09:26] LABS: Protime INR 1.19
[2023-02-17 09:28] LABS: Albumin 2.5 g/dL (3.4-5.0); Bilirubin Total 1.2 mg/dL (0.2-1.0); Protein, Total 6.6 g/dL (6.4-8.2)
--- NOTE | 2023-02-17 09:47 | RAD REPORT ---
EXAM DESCRIPTION: CT - Thorax Wo Con - 02/17/2023 8:52 am CLINICAL HISTORY: cough, neg xr;Cough COMPARISON: Chest Abd Pelvis Wo Con dated 12/04/2022; Chest For Pe Angio dated 05/29/2022; Chest For Pe Angio dated 05/06/2022; Chest Pa And Lat (2 Views) dated 02/12/2023; Abdomen Pelvis W Contrast dated 11/01/2022; Abdomen Pelvis W Contrast dated 07/26/2022; Abdomen Pelvis W Contrast dated 05/06/2022; Abdomen Pelvis W Contrast dated 05/08/2022 TECHNIQUE: Axial thin cut images of the chest were obtained without IV contrast. Multiplanar reforma ts were generated and reviewed. All CT scans are performed using dose optimization technique as appropriate and may include automated exposure control or mA/KV adjustment according to patient size. FINDINGS: Branching peribronchovascular posterior left basilar airspace opacity, axial image 46. No other suspicious mass or infiltrate in the lung parenchyma. No pleural thickening or pleural effusion . No pneumothorax. No abnormal mediastinal or hilar masses or lymphadenopathy seen. No significant aortic or pulmonary a rtery findings. Assessment is limited in the absence of IV contrast. No chest wall mass or abnormal axillary lymphadenopathy. Evaluation of the solid abdominal structures a multiloculated collection within the hepatic dome, wit h air-fluid levels, this largest component measuring 6.7 x 4.4 centimeter in greatest axial dimension s. Limited pneumobilia is noted. Common bile duct stent is again seen on the ethyl blender image. IMPRESSION: Multiloculated superior right liver lobe collection containing fluid and gas, suggesting a hepatic abscess, likely due to hematogenous spread from the bowel, versus sequelae of ascending ch olangitis. Given the solitary nature, an amoebic abscess is among the differential considerations, al though considered less likely. Small branching posterior left basilar airspace opacity, could reflect atelectasis or resolving airsp benoit disease. The findings were communicated to Maxime Yan on 02/17/2023 at 09:35 hours.
[2023-02-17 09:56] LABS: Blood Morphology Comment NOT SEEN (NOT SEEN); Platelet Estimate ADEQ; White Blood Cell Scan OK (OK)
[2023-02-17] MEDS ORDERED: METRONIDAZOLE 500mg IVPB 500 MG/100 ML BAG IV ONE (10:23)
--- NOTE | 2023-02-17 10:41 | EDPHYS ---
Physician Documentation [facility] Name: Wiley Anne Age: 62 yrs Sex: Male : 1960 Arrival Date: 02/17/2023 Time: 08:23 Bed 19 Private MD: Jordan Juarez ED Physician Maxime Yan HPI: 02/17 09:03 This 62 yrs old Male presents to ER via Wheelchair with complaints of bs3 Abdominal Pain, Vomiting, Fever. 09:03 62-year-old male history of CLL on chemo presents with cough and fever he has been bs3 ongoing with symptoms for the past several weeks however today he got weak and nauseous he does not have abdominal pain, no urinary symptoms no difficulty breathing or anything else bothering him of note he was seen here recently and had a negative work-up for similar symptoms but today his fever spiked to over 101 and therefore they were concerned and came in. Historical: - Allergies: 08: No Known Allergies; ld1 - PMHx: 08: CLL; Oral chemotherapy; ld1 - PSHx: 08:31 abcess D/C; Cholecystectomy; ld1 - Immunization history:: Adult Immunizations up to date, Client reports receiving the 2nd dose of the Covid vaccine. - Social history:: Smoking status: Patient denies any tobacco usage or history of. Patient/guardian denies using alcohol. ROS: 09:03 Constitutional: +fever Eyes: Negative for injury, pain, redness, and discharge, ENT: bs3 Negative for injury, pain, and discharge, Neck: Negative for injury, pain, and swelling, Cardiovascular: Negative for chest pain, palpitations, and edema, Respiratory: +cough Exam: 09:03 Constitutional: Patient appears slightly ill Head/Face: Normocephalic, atraumatic. bs3 Eyes: Pupils equal round and reactive to light, extra-ocular motions intact. Lids and lashes normal. ENT: mmm, no posterior phyarngeal erythema Neck: Trachea midline, no thyromegaly, no neck stiffness Chest/axilla: normal chest wall Cardiovascular: Regular rate and rhythm with a normal S1 and S2. symmetric pulses in upper extremities Respiratory: Tachypnea, no respiratory distress mild rhonchi Abdomen/GI: No focal tenderness no rebound no guard Skin: Warm, dry with normal turgor. Normal color with no rashes, no lesions, and no evidence of cellulitis. MS/ Extremity: Pulses equal, no cyanosis. Neurovascular intact. Full, normal range of motion. Neuro: Awake and alert, GCS 15, oriented to person, place, time, and situation. Cranial nerves II-XII grossly intact. Motor strength 5/5 in all extremities. Sensory grossly intact. Psych: Awake, alert, with orientation to person, place and time. Behavior, mood, and affect are within normal limits. Vital Signs: 08:36 BP 133 / 78; Pulse 108; Resp 24; Temp 101.8; Pulse Ox 91% on R/A; Weight 53.52 kg; ll1 Height 5 ft. 2 in. ; Pain 0/10; 09:26 BP 100 / 82; Pulse 95; Resp 22; Pulse Ox 93% on R/A; mb9 09:27 Temp 100.3(O); mb9 08:36 Body Mass Index 21.58 (53.52 kg, 157.48 cm) ll1 08:36 Pain Scale: Adult ll1 MDM: 08:28 Patient medically screened. bs3 09:03 Differential diagnosis: Nonspecific abd pain, pancreatitis, viral gastroenteritis. Data bs3 reviewed: vital signs, nurses notes. ED course: Possible influenza possible pneumonia given the recent chest x-ray which was negative we will do CT without contrast will evaluate for sepsis. 09:29 ED course: Flu positive patient did not receive his flu vaccine offered Tamiflu patient bs3 excepted will discharge home if work-up otherwise no. 10:05 ED course: Discussed with Dr. Juarez who had Dr. Patel review the imaging, they bs3 recommended outpatient f/u with [facility] and strict return precautiosn, melissa d/w patient and family at bedside. . 10:34 ED course: Discussed with patient at bedside and , they want to go home and f/u bs3 with [facility] donovan, they are comfortable with the plan, very strict return prec given. . 02/17 08:36 Order name: Blood Culture Adult (2) bs3 02/17 08:36 Order name: CBC with Diff; Complete Time: 10:04 bs3 02/17 08:36 Order name: CMP; Complete Time: 09:29 bs3 02/17 08:36 Order name: Lactate w/ 2H reflex if indic.; Complete Time: 09:23 bs3 02/17 08:36 Order name: Protime (+inr); Complete Time: 09:29 bs3 02/17 08:36 Order name: Ptt, Activated; Complete Time: 09:29 bs3 02/17 08:36 Order name: Urinalysis w/ reflexes; Complete Time: 09:29 bs3 02/17 08:36 Order name: SARS-COV-2 RT PCR; Complete Time: 09:44 bs3 02/17 08:36 Order name: Influenza Screen (a \T\ B); Complete Time: 10:04 bs3 02/17 08:58 Order name: Glucose, Ancillary Testing; Complete Time: 09:23 EDMS 02/17 09:23 Order name: CBC Smear Scan; Complete Time: 10:04 EDMS 02/17 08:36 Order name: CT Chest Wo Con; Complete Time: 09:51 bs3 02/17 08:36 Order name: EKG; Complete Time: 08:37 bs3 02/17 08:36 Order name: Accucheck; Complete Time: 08:37 bs3 02/17 08:36 Order name: Cardiac monitoring; Complete Time: 08:48 bs3 02/17 08:36 Order name: EKG - Nurse/Tech; Complete Time: 08:44 bs3 02/17 08:36 Order name: IV Saline Lock - Large Bore; Complete Time: 08:48 bs3 02/17 08:36 Order name: Labs collected and sent; Complete Time: 08:48 bs3 02/17 08:36 Order name: O2 Per Protocol; Complete Time: 08:37 bs3 02/17 08:36 Order name: O2 Sat Monitoring; Complete Time: 08:37 bs3 02/17 08:36 Order name: Vital Signs; Complete Time: 08:37 bs3 Administered Medications: 08:48 Drug: Acetaminophen PO 1000 mg Route: PO; ld 09:09 Drug: NS 0.9% IV 500 ml Route: IV; Rate: bolus; Site: right forearm; ld 09:09 Drug: Rocephin IV 1 grams Route: IV; Rate: 1 bolus; Site: right forearm; ld1 10:18 Drug: metroNIDAZOLE IVPB 500 mg Volume: 100 ml; Route: IVPB; Rate: 200 ml/hr; Infused kc6 Over: 30 mins; Site: right forearm; Disposition Summary: 02/17/23 10:40 Discharge Ordered Location: Home bs3 Problem: new bs3 Symptoms: have improved bs3 Condition: Fair bs3 Diagnosis - Influenza due to other identified influenza virus with pneumonia bs3 - liver abscess bs3 Followup: bs3 - With: - When: 5 - 6 days - Reason: Re-evaluation by your physician Discharge Instructions: - Discharge Summary Sheet bs3 - Influenza, Adult bs3 Forms: - Medication Reconciliation Form bs3 - Thank You Letter bs3 - Antibiotic Education bs3 - Prescription Opioid Use bs3 Prescriptions: - Tamiflu 75 mg Oral Capsule - take 1 tablet by ORAL route every 12 hours for 5 days; 10 tablet; Refills: 0, bs3 Product Selection Permitted Signatures: Dispatcher [employer] Patricia Fritz RN RN ld1 Sandy Barnes RN RN kc6 Maxime Yan MD MD bs3
--- NOTE | 2023-02-17 10:41 | ER ---
Nurse's Notes [facility] Name: Wiley Anne Age: 62 yrs Sex: Male : 1960 Arrival Date: 02/17/2023 Time: 08:23 Bed 19 Private MD: Jordan Juarez Diagnosis: Influenza due to other identified influenza virus with pneumonia;liver abscess Presentation: 02/17 08:36 Chief complaint: Patient states: Continuing abdominal pain, fever, N/V, weakness since ll1 last visit here. Sick the past 3 weeks. Coronavirus screen: Client denies travel out of the [place] in the last 14 days. cough unrelated to allergies, difficulty breathing, fatigue, fever, nausea, vomiting. Client presents with at least one sign or symptom that may indicate coronavirus-19. Standard/surgical mask placed on the client. Ebola Screen: Patient denies travel to an Ebola-affected area in the 21 days before illness onset. Initial Sepsis Screen: Does the patient meet any 2 criteria? RR > 20 per min. Temp <36.0*C (96.8*F)) or > 38.3*C (100.9*F). HR > 90 bpm. Yes Does the patient have a suspected source of infection? Yes: Acute abdominal pain. Risk Assessment: Do you want to hurt yourself or someone else? Patient reports no desire to harm self or others. Onset of symptoms was February 27, 2023. 08:36 Method Of Arrival: Wheelchair ll1 08:36 Acuity: JASMIN 2 ll1 Triage Assessment: 08:39 General: Appears uncomfortable, ill, Behavior is calm, cooperative, appropriate for ll1 age. Pain: Denies pain. Neuro: Reports weakness. Respiratory: Reports shortness of breath cough that is. GI: Reports lower abdominal pain, upper abdominal pain, cramping, nausea, vomiting. Historical: - Allergies: 08:31 No Known Allergies; ld1 - PMHx: 08:31 CLL; Oral chemotherapy; ld1 - PSHx: 08:31 abcess D/C; Cholecystectomy; ld1 - Immunization history:: Adult Immunizations up to date, Client reports receiving the 2nd dose of the Covid vaccine. - Social history:: Smoking status: Patient denies any tobacco usage or history of. Patient/guardian denies using alcohol. Screenin:32 [facility] ED Fall Risk Assessment (Adult) History of falling in the last 3 months, ml4 including since admission No falls in past 3 months (0 pts) Confusion or Disorientation No (0 pts) Impaired Gait. Abuse screen: Denies threats or abuse. 11:32 [facility] ED Fall Risk Assessment (Adult) Intoxicated or Sedated No (0 pts) Mobility ml4 Assist Device Used No (0 pt) Altered Elimination No (0 pt) Score/Fall Risk Level 0 - 2 = Low Risk Oriented to surroundings, Maintained a safe environment. Nutritional screening: No deficits noted. Tuberculosis screening: No symptoms or risk factors identified. Assessment: 08:30 Reassessment: Sepsis alert called. aa5 11:32 GI: ml4 11:33 GI:. GI: Bowel sounds present X 4 quads. ml4 Vital Signs: 08:36 BP 133 / 78; Pulse 108; Resp 24; Temp 101.8; Pulse Ox 91% on R/A; Weight 53.52 kg; ll1 Height 5 ft. 2 in. ; Pain 0/10; 09:26 BP 100 / 82; Pulse 95; Resp 22; Pulse Ox 93% on R/A; mb9 09:27 Temp 100.3(O); mb9 08:36 Body Mass Index 21.58 (53.52 kg, 157.48 cm) ll1 08:36 Pain Scale: Adult ll1 ED Course: 08:27 Patient arrived in ED. mr 08:27 Jordan Juarez MD is Private Physician. mr 08:28 Maxime Yan MD is Attending Physician. bs3 08:28 Arm band placed on Patient placed in an exam room, on a stretcher. ll1 08:31 Patricia Hansen, MOSES is Primary Nurse. ld1 08:39 Triage completed. ll1 08:48 SARS-COV-2 RT PCR Sent. ld1 08:48 Influenza Screen (a \T\ B) Sent. ld1 08:54 CT Chest Wo Con In Process Unspecified. EDMS 10:40 Jordan Juarez MD is Referral Physician. bs3 11:00 Patient has correct armband on for positive identification. ml4 11:32 No provider procedures requiring assistance completed. IV discontinued, intact, No ml4 redness/swelling at site. Administered Medications: 08:48 Drug: Acetaminophen PO 1000 mg Route: PO; ld1 09:09 Drug: NS 0.9% IV 500 ml Route: IV; Rate: bolus; Site: right forearm; ld1 09:09 Drug: Rocephin IV 1 grams Route: IV; Rate: 1 bolus; Site: right forearm; ld1 10:18 Drug: metroNIDAZOLE IVPB 500 mg Volume: 100 ml; Route: IVPB; Rate: 200 ml/hr; Infused kc6 Over: 30 mins; Site: right forearm; Medication: 11:33 VIS not applicable for this client. ml4 Outcome: 10:40 Discharge ordered by . bs3 11:32 Discharged to home ambulatory, with family. ml4 11:32 Condition: good 11:32 Discharge instructions given to patient, family, Instructed on discharge instructions, medication usage, Demonstrated understanding of instructions, medications, Prescriptions given X 1, Following a medical screening exam, the patient was provided information regarding alternative care sites and resources available per registration personnel. 11:34 Patient left the ED. ml4 Signatures: Dispatcher [employer] MIHAELAWI Nancy Draper mr CabanFlores, RN RN aa5 Bridget Jimenes, RN RN ll1 Patricia Hansen RN RN ld1 Sandy Barnes RN RN kc6 Maxime Yan MD MD bs3 Nancy Randhawa, RN RN mb9 MOSES SavageIII, Bam, RN RN ml4
[2023-02-17 12:06] VITALS: BP 133/78; O2SAT 91
[2023-02-17 12:07] VITALS: TEMP 100.3
--- NOTE | 2023-02-18 14:18 | EKG ---
Test Date: 2023-02-17 Test Time: 08:41:23 [facility] Counselor: SARIKA MEASUREMENT RESULTS: Intervals: Rate: 110 NC: 132 QRSD: 84 QT: 310 QTc: 419 [place]: P: 79 NC: 132 QRS: 68 T: 79 INTERPRETIVE STATEMENTS: Sinus tachycardia Otherwise normal ECG Compared to ECG 12/04/2022 15:28:29 No significant changes Electronically Signed On 02-18-23 14:17:05 CDT by Andrew Trevino
== END 2023-02-17 11:34 | disposition home or self-care (01) ==
LOC: ER 08:23
DX: J10.00 Influenza due to other identified influenza virus with unspecified type of pneumonia (principal); K75.0 Abscess of liver; Z85.6 Personal history of leukemia; Z20.822 Contact with and (suspected) exposure to COVID-19
CPT/HCPCS: 36415; 71250; 80053; 81001; 82947; 83605; 85025; 85610; 85730; 87040; 87635; 87804; 93005; 96374; 96375; 99284; J0696; J7040

== ENCOUNTER 2023-07-27 16:36 | Emergency (ER) | payer OTHER ==
--- OUTSIDE RECORDS SUMMARY | 2023-07-27 16:48 | XMS REPORT | Continuity of Care Document ---
:1960 Author Organization [facility] t Address [address] [place] [address] [place] [id number] Care Team Providers Name Role Phone Larry PORRAS, Jordan Watts Primary Care Physician RADHA OTTO Attending Clinician Unavailable Doctor Unassigned, [place] Attending Clinician Unavailable MELISSA THORNE Attending Clinician Unavailable MELISSA THORNE Attending Clinician Unavailable Tessa Hutchison LVN Attending Clinician ALLY HDZ Attending Clinician Unavailable Fady Freed MD Attending Clinician Ally Hdz MD Attending Clinician Lindsay Melendez MD Attending Clinician Chris Brown MD Attending Clinician HEIDI LUGO Attending Clinician Unavailable Deniz Cervantes MD Attending Clinician Heidi Lugo MD Attending Clinician Cherie Schmidt DO Attending Clinician KHANG LINARES Attending Clinician Unavailable Chris Romero MD Attending Clinician Wen Linares DOrick Attending Clinician [facility] PORRAS, Branden Attending Clinician Annmarie PORRAS, Melvin Attending Clinician Yulissa Ramírez CRNA Attending Clinician HUNTER COULTER Attending Clinician Unavailable Faculty, Surgery Transplant Attending Clinician Unavailable CASIE CALLEJAS Attending Clinician Unavailable Jose Elias Sheikh MD Attending Clinician Rylee PORRAS, Yoni Coulter Attending Clinician [place] PORRAS, Heath Jay Attending Clinician HEATH DIA Attending Clinician Unavailable Gomez Hui MD Attending Clinician Nuvia Burton Attending Clinician Unavailable Ayan PORRAS, Larisa Pedersen Attending Clinician [phone] Leticia PORRAS, Goran Attending Clinician Casie Johnson MD Attending Clinician Cheryl Bee Attending Clinician Unavailable GENARO VELÁSQUEZ Attending Clinician Unavailable Merchant PORRAS, Ayo Attending Clinician Mian PORRAS, Isidro Attending Clinician Derek PORRAS, Genaro Doyle Attending Clinician [phone] Georgiana Clarke MD Attending Clinician SANDRA DAMICO Attending Clinician Unavailable Juliano PORRAS, Yue Horton Attending Clinician Sandra Damico MD Attending Clinician Juan PORRAS, Holly Attending Clinician Fernanda PORRAS, David Moralez Attending Clinician Radha Otto Attending Clinician Ashvin Carter Attending Clinician Unavailable [email or web address]_A Attending Clinician Unavailable RADHA OTTO Admitting Clinician Unavailable O'CHRISTOPHER, MELISSA Admitting Clinician Unavailable ALLY HDZ Admitting Clinician Unavailable Ally Hdz MD Admitting Clinician HEIDI LUGO Admitting Clinician Unavailable Heidi Lugo MD Admitting Clinician CHRIS ROMERO Admitting Clinician Unavailable Chris Romero MD Admitting Clinician JOSE ELIAS SHEIKH Admitting Clinician Unavailable Heath Dia MD Admitting Clinician HEATH DIA Admitting Clinician Unavailable CASIE JOHNSON Admitting Clinician Unavailable GEORGIANA CLARKE Admitting Clinician Unavailable SNADRA DAMICO Admitting Clinician Unavailable YUE MOULTON Admitting Clinician Unavailable Jordan Juarez Admitting Clinician Unavailable [email or web address] Admitting Clinician Unavailable Payers Payer Name Policy Type Policy Number Effective Date Expiration Date Markell CUEVAS [id number] 2021 00:00:00 [place] [id number] 2019 00:00:00 Problems Condition Condition Condition Status Onset Resolution Last Treating Co mments Source Name Details Category Date Date Treatment Clinician Date Liver Liver Disease Active Univers abscess abscess 6-17 ity of 00:00: [address] RUQ pain RUQ pain Disease Active Unive rs 6-16 ity of 00:00: [address] Biliary Biliary Disease Active Univers drain drain 3-27 ity of displaceme displaceme [place], nt, 00 Medical sequela sequela Branch E46 E46 Disease Active 2021-09 Univers Unspecifie Unspecifie 1-22 it y of d severe d severe 00:00: [place] protein-ca protein-ca 00 Me dical kendall argueta Branch 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 2021-09 U nivers is, is, 1-21 it[place] of recurrent [place] 00 [facility] [place] Biliary Biliary Disease Active 2021-09 Univers anastomoti anastomoti 0-18 it y of c leak at c leak at 00:[place] site of T site of T 00 Medi daniel tube tube Branch insertion insertion Bile leak, Bile leak, Disease Active 2021-09 U nivers postoperat postoperat 0-14 it y of prince prince 00:00: [place] 00 Medical Branch E44.0 E44.0 Disease Active 2021-09 Univers Moderate Moderate 0-14 ity of protein protein 00:00: [place] calorie calorie 00 Medical malnutriti malnutriti Br [...] [facility]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 2-02 Brandi kes ban ban 00:00: Medical 00 Center SIRS SIRS Disease Recurre 2015-[address] (systemic (systemic nce 2- Luke s inflammato inflammato 00:00: Wy dical ry ry 00 Center response response syndrome) syndrome) Lymphoma, Lymphoma, Disease Recurre 2015-[address] low grade low grade nce 2- [facility] 00:00: Medical 00 Center Anemia Anemia Disease [...] t 2 [facility] Thrombocyt Thrombocyt Disease Active 2015-[address] openia openia [facility] Other Other Problem Active Common chronic chronic Spirit pain pain - [facility] Allergic Allergic Problem Active Commo n rhinitis, rhinitis, Spir it seasonal seasonal - [facility] Essential Essential Problem Active Com mon (primary) (primary) Spir it hypertensi hypertensi - [facility] on on [facility] Paresthesi Paresthesi Problem Active C ommon a of skin a of skin Spir it - [facility] Scratched Scratched Problem Active Com mon by cat, by cat, Spirit initial initial - [facility] encounter encounter [facility] Asthmatic Asthmatic Problem Active Com mon bronchitis bronchitis Sp epifanio - [facility] CLL CLL Problem Active Common (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Spirit lymphocyti lymphocyti - [facility] c c [facility] leukemia) leukemia) [facility] Tenosynovi Tenosynovi Diagnosis Active Common tis of tis of Spirit left ankle left ankle - [facility] Pain in Pain in Diagnosis Active Commo n left ankle left ankle Sp epifanio and joints and joints - CHI of left of left St foot foot [facility] Sprain of Sprain of Diagnosis Active C ommon other other Spirit ligament ligament - CHI of left of left St ankle, ankle, [facility] sequela [facility] Allergies, Adverse Reactions, Alerts Allergy Allergy Status Severity Reaction(s) Onset Inactive Treating Comm ents Source Name Type Date Date Clinician No Known DA Active U [facility] Allergie 10-05 Clear s 00:00: Rodríguez 00 [facility] NO KNOWN Allergy Active [facility] ALLERGIE S Ondanset Adverse Active Info Not Commo n becca Reaction Available Spiri t - [facility] Lisinopr Adverse Active headache, Comm on il Reaction numbness/tin Sp epifanio gling to R - [facility] arm [facility] NO KNOWN Drug Active Univers ALLERGIE Class ity of S [place] [facility] Hydrocod Adverse Active Info Not Commo n one-Acet Reaction Available Spi rit aminophe - CHI n [facility] Social History Social Habit Start Date Stop Date Quantity Comments Source Gender identity Universit y of [place] [facility] History of tobacco Passive smoker Un iversity of use [place] [facility] History SDOH University o f Alcohol Std Drinks [place] [facility] History SDOH University o f Alcohol Binge [place] Medic al Branch History SDOH Social Unive rsity of [facility] Med ical Together Branch History SDOH Social Unive rsity of [facility] Branch History SDOH Social Unive rsity of [facility] Medical Membership Branch History SDOH Social Unive rsity of [facility] Medical Meetings Branch Sexual orientation [facility] History of Social 2023-02-24 2023-02-24 Univers ity of function 00:00:00 00:00:00 [place] [facility] History SDOH 2023-02-22 2023-02-22 1 University o f Alcohol Frequency 00:00:00 00:00:00 [place] M edical Branch History SDOH Social 2023-02-22 2023-02-22 5 Unive rsity of Connections Phone 00:00:00 00:00:00 [place] M edical Branch History SDOH 2023-02-22 2023-02-22 0 University o f Physical Activity 00:00:00 00:00:00 [place] M edical DPW Branch History SDOH 2023-02-22 2023-02-22 0 University o f Physical Activity 00:00:00 00:00:00 [place] M edical MPS Branch History SDOH 2023-02-22 2023-02-22 5 University o f Financial 00:00:00 00:00:00 [place] [facility] History SDOH Food 2023-02-22 2023-02-22 1 Univers ity of Worry 00:00:00 00:00:00 [place] [facility] History SDOH Food 2023-02-22 2023-02-22 1 Univers ity of Scarcity 00:00:00 00:00:00 [place] [facility] History SDOH 2023-02-22 2023-02-22 2 University o f Transport Med 00:00:00 00:00:00 [place] Medic al Branch History SDOH 2023-02-22 2023-02-22 2 University o f Transport Non-Med 00:00:00 00:00:00 [place] M edical Branch History SDOH 2023-02-22 2023-02-22 2 University o f Housing Unable to 00:00:00 00:00:00 [place] M edical Pay Branch History SDOH 2023-02-22 2023-02-22 1 University o f Housing Places 00:00:00 00:00:00 [place] Medi daniel Lived Branch History SDOH 2023-02-22 2023-02-22 2 University o f Housing Homeless 00:00:00 00:00:00 [place] Me dical Last Year Branch Exposure to 2022-12-10 2022-12-20 Not sure [facility] SARS-CoV-2 (event) 00:00:00 08:36:[address] [facility] History SDOH Social 2022-11-30 2022-11-30 3 Unive rsity of Connections Living 00:00:00 00:00:[address] [facility] [place] Education 2022-11-29 2022-11-29 13 University 00:00:00 00:00:[address] [facility] [place] Tobacco use and 2022-07-26 2022-07-26 Smokeless Universit y of exposure 00:00:00 00:00:00 tobacco [facility] intake 2022-05-11 2022-05-[address] [facility] 00:00:00 00:00:00 non-drinker of Medical nter alcohol (finding) Sex Assigned At [address] [facility] 00:00:00 00:[facility]00 [facility] Smoking Status Start Date Stop Date Source Never smoked tobacco [facility] Medications Ordered Filled Start Stop Current Ordering Indication Dosage Frequency Signature Comments Components Source Medication Medication Date Date Medication? Clinician (SIG) Name Name iopamidol 2022- No [id number] 80mL 80 mL, Univers (ISOVUE 04-06 Intravenou ity o f 370-500 mL) 20:30: 20:30 s, ONCE, 1 [place] injection 00 :00 dose, On Medica l 80 mL 04/06/23 Branch at 1545, Routine pantoprazol 2022- No [id number] 40mg Take 1 Univers e 40 mg EC -28 03-25 tablet by ity of tablet 00:00: 04:59 mouth in [place] 00 :00 [facility] for 30 days. pantoprazol 2022- No [id number] 40mg Take 1 Univers e 40 mg EC 6-24 -25 tablet by ity of tablet 00:00: 04:59 mouth in [place] 00 :00 [facility] for 30 days. pantoprazol 2022- No [id number] 40mg Take 1 Univers e 40 mg EC 6-28 03-25 tablet by ity of tablet 00:00: 04:59 mouth in [place] 00 :00 [facility] for 30 days. NaCl 0.9% 2023-0 Yes 10mL 10 mL, Univer s (NS) 02-25 Slow IV ity of injection 17:57: [place], [place]N, [place] 10 mL 58 Starting Medical on Tue Branch 02/25/23 at 1257, Until Discontinu ed, Routine, line maintenanc e lidocaine 2023-0 Yes 5mL 5 mL, Univers 1% (PF) 02-25 Subcutaneo ity of (XYLOCAINE) 17:57: [place], PRN, [place] injection 5 58 Starting Medi daniel mL on Tue Branch 02/25/23 at 1257, Until Discontinu ed, Routine, Local anesthesia NaCl 0.9% 2022-0 Yes 10mL 10 mL, Univer s (NS) 02-25 Slow IV ity of injection 17:57: Push, PRN, [place] 10 mL 58 Starting Medical on Tue Branch 02/25/23 at 1257, Until Discontinu ed, Routine, line maintenanc e lidocaine 2022-0 Yes 5mL 5 mL, Univers 1% (PF) 02-25 Subcutaneo ity of (XYLOCAINE) 17:57: [place], PRN, [place] injection 5 58 Starting Medi daniel mL on Tue Branch 02/25/23 at 1257, Until Discontinu ed, Routine, Local anesthesia piperacilli 3-0 2023- No 3.375g 3.375 g, Univers n-tazobacta 02-25 IV ity of m (ZOSYN) 01:00: 08:59 [place], [place] 3.375 g in 00 :00 Q8H ABX, Medic al NaCl 0.9% 10 doses, Branc h (NS) 100 mL First dose MINI-BAG (after last reorder) on [place] 02/24/23 at 1999, Last dose on 02/27/23 at 1999, Administer over 4 Hours, 100 mL
Reas on for Anti-Infec tive: Empiric Therapy for Suspected Infection< br>Empiric Therapy Site: Abdominal< br>Duratio n of therapy: 72 hours piperacilli 2023-0 2023- No 3.375g 3.375 g, Univers n-tazobacta 02-25 IV ity of m (ZOSYN) 01:00: 08:59 [place], [place] 3.375 g in 00 :00 Q8H ABX, Medic al NaCl 0.9% 10 doses, Branc h (NS) 100 mL First dose MINI-BAG (after last reorder) on [place] 02/24/23 at 1999, Last dose on 02/27/23 at 1999, Administer over 4 Hours, 100 mL
Reas on for Anti-Infec tive: Empiric Therapy for Suspected Infection< br>Empiric Therapy Site: Abdominal< br>Duratio n of therapy: 72 hours NaCl 0.9% 2023-0 Yes 3.375g Infuse Univ ers (NS) PgBk 6-23 3.375 g ity of 100 mL with 00:00: every 8 [place] piperacilli 00 (eight) Medic al n-tazobacta hours. Branch m SolR 3.375 g NaCl 0.9% 2023-0 Yes 3.375g Infuse Univ ers (NS) PgBk 6-23 3.375 g ity of 100 mL with 00:00: every 8 [place] piperacilli 00 (eight) Medic al n-tazobacta hours. Branch m SolR 3.375 g NaCl 0.9% 2023-0 Yes 3.375g Infuse Univ ers (NS) PgBk 6-23 3.375 g ity of 100 mL with 00:00: every 8 [place] piperacilli 00 (eight) Medic al n-tazobacta hours. Branch m SolR 3.375 g NaCl 0.9% 2023-0 Yes 3.375g Infuse Univ ers (NS) PgBk 6-23 3.375 g ity of 100 mL with 00:00: every 8 [place] piperacilli 00 (eight) Medic al n-tazobacta hours. Branch m SolR 3.375 g NaCl 0.9% 2023-0 Yes 3.375g Infuse Univ ers (NS) PgBk 6-23 3.375 g ity of 100 mL with 00:00: every 8 [place] piperacilli 00 (eight) Medic al n-tazobacta hours. Branch m SolR 3.375 g NaCl 0.9% 2023-0 Yes 3.375g Infuse Univ ers (NS) PgBk 6-23 3.375 g ity of 100 mL with 00:00: every 8 [place] piperacilli 00 (eight) Medic al n-tazobacta hours. Branch m SolR 3.375 g benzonatate 2023-0 2023- No [id number] 100mg Take 1 Univers 100 mg 6-23 07-24 capsule by ity of capsule 00:00: 04:59 mouth [place] 00 :00 every 8 Medical (eight) Branch hours as needed for Cough for up to 30 days. methocarbam 2023-0 2023- No [id number] 500mg Take 1 Univers oL 500 mg 6-23 07-24 tablet by ity of tablet 00:00: 04:59 mouth 4 [place] 00 :00 (four) Medical times Branch daily for 30 days. benzonatate 2023-0 2023- No [id number] 100mg Take 1 Univers 100 mg 6-23 07-24 capsule by ity of capsule 00:00: 04:59 mouth [place] 00 :00 every 8 Medical (eight) Branch hours as needed for Cough for up to 30 days. methocarbam 202-0 2023- No [id number] 500mg Take 1 Univers oL 500 mg 6-23 07-24 tablet by ity of tablet 00:00: 04:59 mouth 4 [place] 00 :00 (four) Medical times Branch daily for 30 days. benzonatate 2023-0 3- No [id number] 100mg Take 1 Univers 100 mg 6-23 07-24 capsule by ity of capsule 00:00: 04:59 mouth [place] 00 :00 every 8 Medical (eight) Branch hours as needed for Cough for up to 30 days. methocarbam 2023-0 3- No [id number] 500mg Take 1 Univers oL 500 mg 6-23 07-24 tablet by ity of tablet 00:00: 04:59 mouth 4 [place] 00 :00 (four) Medical times Branch daily for 30 days. HYDROcodone 2022-0 2023- No [id number] 1{tbl} Take 1 U nivers -acetaminop -27 03- tablet by it y of hen 10-325 00:00: 04:59 mouth [place] mg tablet 00 :00 every 6 Medical (six) Branch hours as needed for Pain (scale 4-6) or Pain (scale 7-10) for up to 7 days. Indication s: acute pain HYDROcodone 2022-0 2023- No [id number] 1{tbl} Take 1 U nivers -acetaminop -03-05 tablet by it y of hen 10-325 00:00: 04:59 mouth [place] mg tablet 00 :00 every 6 Medical (six) Branch hours as needed for Pain (scale 4-6) or Pain (scale 7-10) for up to 7 days. Indication s: acute pain HYDROcodone 2022-2022- No [id number] 1{tbl} Take 1 U nivers -acetaminop -03-05 tablet by it y of hen 10-325 00:00: 04:59 mouth [place] mg tablet 00 :00 every 6 Medical (six) Branch hours as needed for Pain (scale 4-6) or Pain (scale 7-10) for up to 7 days. Indication s: acute pain Lidocaine 2022- No 1{patch 1 Patch, Univers (LIDOCARE) 02-24 } Topical, ity of 4 % patch 1 13:00: 01:42 Administer [place] Patch 00 :00 over 12 Medical Hours, Branch ONCE, 1 dose, On [place] 02/24/23 at 0800, VIVIENNE HYDROcodone 2022-0 Yes 1{tbl} 1 tablet, Univers -acetaminop 6- Oral, ity of hen (NORCO) 19:17: Q6HPRN, [place] 10-325 mg 12 Starting Medica l tablet 1 on Tue Branch tablet 02/23/23 at 1417, Until Discontinu ed, Routine, Pain (scale 4-6), Pain (scale 7-10) HYDROcodone 2022-0 Yes 1{tbl} 1 tablet, Univers -acetaminop 6-21 Oral, ity of hen (NORCO) 19:17: Q6HPRN, [place] 10-325 mg 12 Starting Medica l tablet 1 on Tue Branch tablet 02/23/23 at 1417, Until Discontinu ed, Routine, Pain (scale 4-6), Pain (scale 7-10) HYDROcodone 2022- No 1{tbl} 1 tablet, Univers -acetaminop 6-21 06-21 Oral, ity of hen (NORCO) 12:54: 19:17 Q6HPRN, [place] 10-325 mg 20 :23 Starting Medica l tablet 1 on Tue Branch tablet 02/23/23 at 0754, Until Tue02/23/23 at 1417, Routine, Pain (scale 4-6) methocarbam 3-0 Yes 500mg 500 mg, Un [place] oL - Oral, QID, ity of (ROBAXIN) 08:00: First dose [place] tablet 500 00 (after Medical mg last Branch modificati on) on Tue02/23/23 at 0300, Until Discontinu ed, Routine methocarbam 2023-0 Yes 500mg 500 mg, Un [place] oL 02-23 Oral, QID, ity of (ROBAXIN) 08:00: First dose [place] tablet 500 00 (after Medical mg last Branch modificati on) on Tue02/23/23 at 0300, Until Discontinu ed, Routine morpHINE (2 2022-0 Yes 2mg 2 mg, Slow Univers mg/mL) 6-20 IV Push, ity of injection 2 16:37: Q6HPRN, [place] mg 08 Starting Medical on Tue02/22/23 at 1137, Until Discontinu ed, Routine, Pain (scale 7-10) morpHINE (2 2022-0 Yes 2mg 2 mg, Slow Univers mg/mL) 6-20 IV Push, ity of injection 2 16:37: Q6HPRN, [place] mg 08 Starting Medical on Tue02/22/23 at 1137, Until Discontinu ed, Routine, Pain (scale 7-10) benzonatate 2023-0 Yes 100mg 100 mg, Un [place] (TESSALON 6-20 Oral, ity of PERLES) 14:23: Q8HPRN, [place] capsule 100 45 Starting Medi daniel mg on Tue02/22/23 at 0923, Until Discontinu ed, Routine, Cough benzonatate 2023-0 Yes 100mg 100 mg, Un [place] (TESSALON 6-20 Oral, ity of PERLES) 14:23: Q8HPRN, [place] capsule 100 45 Starting Medi daniel mg on Tue02/22/23 at 0923, Until Discontinu ed, Routine, Cough methocarbam 2023-0 2023- No 500mg 500 mg, U nivers oL 02-22- Oral, QID, ity of (ROBAXIN) 13:00: 07:06 First dose [place] tablet 500 00 :36 on [facility] Medical mg 02/22/23 at Branch 0800, Until Discontinu ed, Routine NaCl 0.9% 2022- No 500mL at 150 Univ ers (NS) IV 02-22 06-21 mL/hr, IV ity of infusion 13:00: 00:00 Infusion, [place] 500 mL 00 :00 ONCE, 1 Medical dose, On Branch [facility] 02/22/23 at 0800, Routine methocarbam 2022- No 500mg 500 mg, U nivers oL 02-22 Oral, ity of (ROBAXIN) 10:45: 10:31 ONCE, 1 [place] tablet 500 00 :00 dose, On Medic al mg [facility] 02/22/23 at 0545, Routine albuterol Yes 1.25mg 1.25 mg, Un [place] (PROVENTIL) -20 Inhalation it y of 2.5 mg /3 09:30: , Q6HPRN, [place] mL (0.083 00 Starting Medica l %) on [facility] nebulizer 02/22/23 at solution 0430, 1.25 mg Until Discontinu ed, Routine, Shortness of Breath, Wheezing albuterol 0 Yes 1.25mg 1.25 mg, Un [place] (PROVENTIL) 20 Inhalation it y of 2.5 mg /3 09:30: , Q6HPRN, [place] mL (0.083 00 Starting Medica l %) on [facility] nebulizer 02/22/23 at solution 0430, 1.25 mg Until Discontinu ed, Routine, Shortness of Breath, Wheezing methocarbam 2022- No 500mg 500 mg, U nivers oL 02-2220 Oral, ity of (ROBAXIN) 08:00: 07:07 ONCE, 1 [place] tablet 500 00 :00 dose, On Medic al mg [facility] 02/22/23 at 0300, Routine FENTanyl PF 2022- No 12.5ug 12.5 mcg, Univers (SUBLIMAZE 02-22 Slow IV ity o f (PF)) 05:45: 05:08 Push, [place] injection 00 :00 ONCE, 1 Medical 12.5 mcg dose, On [facility] 02/22/23 at 0045, VIVIENNE Lidocaine 2022- No 1{patch 1 Patch, Univers (LIDOCARE) 02-22 } Topical, ity of 4 % patch 1 01:45: 13:00 Administer [place] Patch 00 :00 over 12 Medical Hours, Branch ONCE, 1 dose, On [facility] 02/21/23 at 2045, Routine gabapentin 2022- No 200mg 200 mg, Un [place] (NEURONTIN) 02-22 Oral, ity of capsule 200 01:30: 01:00 ONCE, 1 [place] mg 00 :00 dose, On [facility] 02/21/23 at 2030, Routine FENTanyl PF 2022- No 12.5ug 12.5 mcg, Univers (SUBLIMAZE 02-22 Slow IV ity o f (PF)) 01:30: 01:14 Push, [place] injection 00 :00 ONCE, 1 Medical 12.5 mcg dose, On Branch [facility] 02/21/23 at 2030, Routine morpHINE (2 2022- No 2mg 2 mg, Slow Univers mg/mL) 02-22 IV Push, ity of injection 2 01:00: 00:21 ONCE, 1 [place] mg 00 :00 dose, On [facility] 02/21/23 at 2000, Routine morpHINE (2 2022- No 2mg 2 mg, Slow Univers mg/mL) 02-21 IV Push, ity of injection 2 21:15: 22:22 ONCE, 1 [place] mg 00 :00 dose, On [facility] 02/21/23 at 1615, Routine iopamidol 2022- No [id number] 30mL 30 mL, U nivers (ISOVUE 02-21 Intravenou ity o f 300-500 mL) 20:15: 20:15 s, ONCE, 1 [place] injection 00 :00 dose, On Medica l 30 mL [facility] 02/21/23 at 1515, Routine midazolam 2022- No IV Push, Uni vers (VERSED) 02-21 PRN, ity of injection 19:10: 19:10 Starting [place] 41 :41 on [facility] 02/21/23 at Branch 1410, Until Discontinu ed, Routine, Intra-op FENTanyl PF 2022- No Slow IV Un brayan (SUBLIMAZE 02-21 Push, PRN, it y of (PF)) 19:05: 19:12 Starting [place] injection 00 :50 on [facility] 02/21/23 at Branch 1405, Until Discontinu ed, Routine, Intra-op piperacilli 2022- No 3.375g 3.375 g, Univers n-tazobacta 02-21 IV ity of m (ZOSYN) 16:15: 17:02 [place]gyback, [place] 3.375 g in 00 :00 Q8H ABX, Medic al NaCl 0.9% 10 doses, Branc h (NS) 100 mL First dose MINI-BAG (after last modificati on) on Tue02/21/23 at 1115, Last dose on [place] 02/24/23 at 1115, Administer over 4 Hours, 100 mL
Reas on for Anti-Infec tive: Empiric Therapy for Suspected Infection< br>Empiric Therapy Site: Abdominal< br>Duratio n of therapy: 72 hours lactated 2022- No 1000mL at 100 Univ ers ringers IV 02-21 mL/hr, ity of infusion 14:45: 22:26 1,000 mL, [place] 1,000 mL 00 :49 IV Medical Infusion, Branch ONCE, 1 dose, On Tue02/21/23 at 0945, Routine ibrutinib 2022- No 420mg 420 mg, Uni vers (IMBRUVICA) 02-21 Oral, ity of Tab 420 mg 14:00: 13:59 DAILY, 28 [place] 00 :00 doses, Medical First dose Branch (after last modificati on) on Tue02/21/23 at 0900, Last dose on [place] 03/20/23 at 0900, Routine ibrutinib 2022- No 420mg 420 mg, Uni vers (IMBRUVICA) 02-21 Oral, ity of Tab 420 mg 14:00: 13:59 DAILY, 28 [place] 00 :00 doses, Medical First dose Branch (after last modificati on) on Tue02/21/23 at 0900, Last dose on Tue03/20/23 at 0900, Routine piperacilli 2022- No 3.375g 3.375 g, Univers n-tazobacta 02-20 IV ity of m (ZOSYN) 17:00: 11:57 Piggyback, [place] 3.375 g in 00 :15 Q6H, 5 Medical NaCl 0.9% doses, Branch (NS) 100 mL First dose MINI-BAG (after last modificati on) on Tue02/20/23 at 1200, Last dose on Tue02/21/23 at 1200, Administer over 4 Hours, 100 mL
Reas on for Anti-Infec tive: Empiric Therapy for Suspected Infection< br>Empiric Therapy Site: Abdominal< br>Duratio n of therapy: 72 hours lactated 2022- No 1000mL at 250 Univ ers ringers IV 02-20 mL/hr, ity of infusion 13:45: 14:20 1,000 mL, [place] 1,000 mL 00 :41 IV Medical Infusion, Branch ONCE, 1 dose, On Tue02/20/23 at 0845, Routine Vancomycin 2022- No 15mg/kg 750 mg U nivers 750 mg in 02-20 (rounded ity o f NaCl 0.9% 06:15: 11:20 from 816 [place] (NS) 250 mL 00 :10 mg = 15 Medic al VIAL-MATE mg/kg Branch ?54.4 kg), IV Piggyback, Q12H ABX, 20 doses, First dose on Tue02/20/23 at 0115, Last dose on Tue03/01/23 at 1315, Administer over 60 Minutes, 250 mL
Reas on for Anti-Infec tive: Documented Infection< br>Documen loki Infection Site: Blood
D uration of Therapy: 10 days albuterol 2022- No 1.25mg 1.25 mg, U nivers (PROVENTIL) 02-20 Inhalation i ty of 2.5 mg /3 01:00: 09:16 , Q4H, [place] mL (0.083 00 :57 First dose Medi daniel %) (after Branch nebulizer last solution modificati 1.25 mg on) on 02/19/23 at 2000, Until Discontinu ed, Routine ondansetron 2022- No 8mg 8 mg, Univ ers (ZOFRAN) 02-19 Oral, ONCE ity of tablet 8 mg 22:15: 22:06 NOW, 1 [place] 00 :00 dose, On Medical [facility] 02/19/23 at 1715, Routine HYDROcodone 2022- No 1{tbl} 1 tablet, Univers -acetaminop 02-19 Oral, ity of hen (NORCO 21:15: 12:54 Q6HPRN, [place] 5) 5-325 mg 38 :36 Starting Medi daniel tablet 1 on [facility] tablet 02/19/23 at 1615, Until 02/23/23 at 0754, Routine, Pain (scale 4-6) iopamidol 2022- No [id number] 100mL 100 mL, Univers (ISOVUE 02-19 Intravenou ity o f 370-500 mL) 19:30: 19:30 s, ONCE, 1 [place] injection 00 :00 dose, On Medica l 100 mL [facility] 02/19/23 at 1430, Routine ondansetron Yes 8mg 8 mg, Unive rs (ZOFRAN) 02-19 Oral, ity of tablet 8 mg 18:35: Q6HPRN, [place] 07 Starting Medical on [facility] 02/19/23 at 1335, Until Discontinu ed, Routine, Nausea and Vomiting (N/V) ondansetron 0 Yes 8mg 8 mg, Unive rs (ZOFRAN) 02-19 Oral, ity of tablet 8 mg 18:35: Q6HPRN, [place] 07 Starting Medical on [facility] 02/19/23 at 1335, Until Discontinu ed, Routine, Nausea and Vomiting (N/V) lactated No 1000mL at 250 Univ ers ringers IV 02-19 mL/hr, ity of infusion 18:15: 22:14 1,000 mL, [place] 1,000 mL 00 :00 IV Medical Infusion, Branch CONTINUOUS , Starting on [facility] 02/19/23 at 1315, Until [facility] 02/19/23 at 1714, Routine pantoprazol 0 Yes 40mg 40 mg, Univ ers e 02-19 Oral, ity of (PROTONIX) 14:00: DAILY, [place] EC tablet 00 First dose Medi daniel 40 mg on [facility] 02/19/23 at 0900, Until Discontinu ed, Routine tamsulosin 0 Yes .4mg 0.4 mg, Univ ers (FLOMAX) 02-19 Oral, ity of capsule 0.4 14:00: DAILY, [place] mg 00 First dose Medical on Sat Branch 02/19/23 at 0900, Until Discontinu ed, Routine pantoprazol Yes 40mg 40 mg, Univ ers e 02-19 Oral, ity of (PROTONIX) 14:00: DAILY, [place] EC tablet 00 First dose Medi daniel 40 mg on [facility] 02/19/23 at 0900, Until Discontinu ed, Routine tamsulosin Yes .4mg 0.4 mg, Univ ers (FLOMAX) 02-19 Oral, ity of capsule 0.4 14:00: DAILY, [place] mg 00 First dose Medical on [facility] 02/19/23 at 0900, Until Discontinu ed, Routine piperacilli 2022- No 3.375g 3.375 g, Univers n-tazobacta 02-1918 IV ity of m (ZOSYN) 11:08: 11:19 Piggyback, [place] 3.375 g in 00 :51 Q8H ABX, 9 Med ical NaCl 0.9% doses, Branch (NS) 100 mL First dose MINI-BAG (after last modificati on) on [facility] 02/19/23 at 0615, Last dose on 02/21/23 at 2215, Administer over 4 Hours, 100 mL
Reas on for Anti-Infec tive: Empiric Therapy for Suspected Infection< br>Empiric Therapy Site: Abdominal< br>Duratio n of therapy: 72 hours oseltamivir No 75mg 75 mg, Uni vers (TAMIFLU) 02-1920 Oral, ity of capsule 75 01:00: 00:21 Q12H, 7 [place] mg 00 :00 doses, Medical First dose Branch on Tue02/18/23 at 2000, Last dose on 02/21/23 at 2000, Routine lactated 2022- No 1000mL at 100 Univ ers ringers IV 02-18 mL/hr, ity of infusion 23:15: 11:14 1,000 mL, [place] 1,000 mL 00 :00 IV Medical Infusion, Branch CONTINUOUS , Starting on Tue02/18/23 at 1815, Until 02/19/23 at 0614, Routine NaCl 0.9% 2022- No 1000mL at 999 Uni vers (NS) bolus 02-18 mL/hr, ity of infusion 22:30: 21:54 1,000 mL, [place] 1,000 mL 00 :00 IV Medical Infusion, Branch ONCE, 1 dose, On Tue02/18/23 at 1730, [place]EN[place] albuterol 2022- No 1.25mg 1.25 mg, U nivers (PROVENTIL) 02-18 Inhalation i ty of 2.5 mg /3 22:18: 22:53 , Q4HPRN, [place] mL (0.083 58 :03 Starting Medica l %) on Tue Branch nebulizer 02/18/23 at solution 1718, 1.25 mg Until 02/19/23 at 1753, Routine, Shortness of Breath, Wheezing enoxaparin Yes 40mg 40 mg, Unive rs (LOVENOX) 02-18 Subcutaneo ity of injection 22:00: [place], DAILY, [place] 40 mg 00 First dose Medical on Tue Branch 02/18/23 at 1700, Until Discontinu ed, Routine enoxaparin Yes 40mg 40 mg, Unive rs (LOVENOX) 02-18 Subcutaneo ity of injection 22:00: [place], DAILY, [place] 40 mg 00 First dose Medical on Tue Branch 02/18/23 at 1700, Until Discontinu ed, Routine acetaminoph Yes 650mg 650 mg, Un [place] en 02-18 Oral, ity of (TYLENOL) 21:56: Q6HPRN, [place] tablet 650 07 Starting Medic al mg on Tue Branch 6/16/23 at 1656, Until Discontinu ed, Routine, Pain (scale 1-3) acetaminoph Yes 650mg 650 mg, Un [place] en 02-18 Oral, ity of (TYLENOL) 21:56: Q6HPRN, [place] tablet 650 07 Starting Medic al mg on Tue Branch 02/18/23 at 1656, Until Discontinu ed, Routine, Pain (scale 1-3) ondansetron 2022- No 4mg 4 mg, Slow Univers (ZOFRAN 02-18 IV Push, ity of (PF)) 21:45: 21:44 ONCE, 1 [place] injection 4 00 :00 dose, On Medi daniel mg Tue Branch 02/18/23 at 1645, VIVIENNE morpHINE (4 2022- No 6mg 6 mg, Slow Univers mg/mL) 02-18 IV Push, ity of injection 6 21:45: 21:43 ONCE, 1 [place] mg 00 :00 dose, On Medical Fri Branch 02/18/23 at 1645, STAT acetaminoph 2022- No 650mg 650 mg, U nivers en 02-18 Oral, ity of (TYLENOL) 21:45: 21:43 ONCE, 1 [place] tablet 650 00 :00 dose, On Medic al mg Tue Branch 02/18/23 at 1645, VIVIENNE NaCl 0.9% 2022- No 1000mL at 999 Uni vers (NS) bolus 02-18 mL/hr, ity of infusion 18:45: 20:13 1,000 mL, [place] 1,000 mL 00 :00 IV Medical Infusion, Branch ONCE, 1 dose, On Tue02/18/23 at 1345, VIVIEN[place] morpHINE (4 2022- No 4mg 4 mg, Slow Univers mg/mL) 02-18 IV Push, ity of injection 4 18:00: 18:11 ONCE, 1 [place] mg 00 :00 dose, On Medical Fri Branch 02/18/23 at 1300, STAT albuterol 2022-0 Yes 1{puff} Inhale 1 U nivers 90 5-12 Puff every ity of mcg/actuati 00:00: 4 (four) [place] on inhaler 00 hours as Medic al needed. Branch tamsulosin 2022-0 Yes .4mg Take 1 Unive rs 0.4 mg 24 5-12 capsule by ity of hr capsule 00:00: mouth at [place] 00 bedtime. Medical Branch albuterol 2022-0 Yes 1{puff} Inhale 1 U nivers 90 5-12 Puff every ity of mcg/actuati 00:00: 4 (four) [place] on inhaler 00 hours as Medic al needed. Branch tamsulosin 2022-0 Yes .4mg Take 1 Unive rs 0.4 mg 24 5-12 capsule by ity of hr capsule 00:00: mouth at [place] 00 bedtime. Medical Branch albuterol 2022-0 Yes 1{puff} Inhale 1 U nivers 90 5-12 Puff every ity of mcg/actuati 00:00: 4 (four) [place] on inhaler 00 hours as Medic al needed. Branch tamsulosin 2022-0 Yes .4mg Take 1 Unive rs 0.4 mg 24 5-12 capsule by ity of hr capsule 00:00: mouth at [place] 00 bedtime. Medical Branch albuterol 0 Yes 1{puff} Inhale 1 U nivers 90 5-12 Puff every ity of mcg/actuati 00:00: 4 (four) [place] on inhaler 00 hours as Medic al needed. Branch tamsulosin 2022-0 Yes .4mg Take 1 Unive rs 0.4 mg 24 5-12 capsule by ity of hr capsule 00:00: mouth at [place] 00 bedtime. Medical Branch albuterol 2022-0 Yes 1{puff} Inhale 1 U nivers 90 5-12 Puff every ity of mcg/actuati 00:00: 4 (four) [place] on inhaler 00 hours as Medic al needed. Branch tamsulosin 2022-0 Yes .4mg Take 1 Unive rs 0.4 mg 24 5-12 capsule by ity of hr capsule 00:00: mouth at [place] 00 bedtime. Medical Branch albuterol 2022-0 Yes 1{puff} Inhale 1 U nivers 90 5-12 Puff every ity of mcg/actuati 00:00: 4 (four) [place] on inhaler 00 hours as Medic al needed. Branch tamsulosin Yes .4mg Take 1 Unive rs 0.4 mg 24 5-12 capsule by ity of hr capsule 00:00: mouth at [facility] as 00 bedtime. Medical Branch IMBRUVICA 0 Yes 420mg Take 1 Unive rs 420 mg Tab 5-04 tablet by ity of 00:00: mouth in [place] 00 the Medical morning. Branch IMBRUVICA 0 Yes 420mg Take 1 Unive rs 420 mg Tab 5-04 tablet by ity of 00:00: mouth in [place] 00 the Medical morning. Branch IMBRUVICA 0 Yes 420mg Take 1 Unive rs 420 mg Tab 5-04 tablet by ity of 00:00: mouth in [place] 00 the Medical morning. Branch IMBRUVICA 0 Yes 420mg Take 1 Unive rs 420 mg Tab 5-04 tablet by ity of 00:00: mouth in [place] 00 the Medical morning. Branch IMBRUVICA 0 Yes 420mg Take 1 Unive rs 420 mg Tab 5-04 tablet by ity of 00:00: mouth in [place] the Medical morning. Branch IMBRUVICA 0 Yes 420mg Take 1 Unive rs 420 mg Tab 5-04 tablet by ity of 00:00: mouth in [place] the Medical morning. Branch traMADoL 2022- No 50mg 50 mg, Univer s (ULTRAM) 11-30 Oral, ONCE ity of tablet 50 19:00: 19:19 NOW, 1 [place] mg 00 :00 dose, On Medical Tue Branch 11/30/22 at 1400, Routine ibrutinib 2022- No 1{tbl} Take 1 Uni vers [...] First dose Medi daniel 40 mg on [facility] 11/30/22 at 0900, Until Discontinu ed, Routine enoxaparin 2022-0 Yes 40mg 40 mg, Unive rs (LOVENOX) 11-30 Subcutaneo ity of injection 14:00: [place], DAILY, [place] 40 mg 00 First dose Medical on [facility] 11/30/22 at 0900, Until Discontinu ed, Routine tamsulosin 2022-0 Yes .4mg 0.4 mg, Univ ers (FLOMAX) 11-30 Oral, ity of capsule 0.4 14:00: DAILY, [place] mg 00 First dose Medical on [facility] 11/30/22 at 0900, Until Discontinu ed, Routine ibrutinib 2022-0 Yes 420mg 420 mg, Univ ers (IMBRUVICA) 11-30 Oral, ity of capsule 420 14:00: DAILY, [place] mg 00 First dose Medical on [facility] 11/30/22 at 0900, Until Discontinu ed iopamidol 0 202- No [id number] 80mL 80 mL, Univers (ISOVUE 11-30 Intravenou ity o f 370-500 mL) 01:02: 01:15 s, ONCE, 1 [place] injection 00 :00 dose, On Medica l 80 mL [facility] 11/29/22 at 2015, Routine cyclobenzap 2022-0 Yes 5mg 5 mg, Unive rs rine 11-30 Oral, TID, ity of (FLEXERIL) 01:00: First dose [place] tablet 5 mg 00 on Mon Medica l 11/29/22 at Branch 2000, Until Discontinu ed, Routine ondansetron 2022-0 Yes 4mg 4 mg, Slow Univers (ZOFRAN 11-29 IV Push, ity of (PF)) 23:14: Q6HPRN, [place] injection 4 01 Starting Medi daniel mg on [facility] 11/29/22 at 1814, Until Discontinu ed, Routine, Nausea and Vomiting (N/V) albuterol 2022-0 Yes 2.5mg 2.5 mg, Univ ers (PROVENTIL) 11-29 Inhalation it y of 2.5 mg /3 23:10: , Q4HPRN, [place] mL (0.083 46 Starting Medica l %) on Mon Branch nebulizer 11/29/22 at solution 1810, 2.5 mg Until Discontinu ed, Shortness of Breath ondansetron No 4mg 4 mg, Univ ers (ZOFRAN-ODT 11-29 Oral, ity of ) 22:45: 22:09 ONCE, 1 [place] disintegrat 00 :00 dose, On Medi daniel ing tablet Mon Branch 4 mg 11/29/22 at 1745, Routine HYDROcodone 2022- No 1{tbl} 1 tablet, Univers -acetaminop 11-29 Oral, ity of hen (NORCO 22:00: 22:10 ONCE, 1 [place] 5) 5-325 mg 00 :00 dose, On Medi daniel tablet 1 Mon Branch tablet 11/29/22 at 1700, [place]IVIEN[place] ibrutinib 2021-09 Yes 1{tbl} Take 1 Univ ers (IMBRUVICA) 2-03 tablet by ity of 420 mg Tab 13:21: mouth in [place] 14 the Medical morning. Branch ALBUTEROL 2021-09 Yes Inhale as Uni vers INHALE 2-03 needed. ity of 13:21: [address] ibrutinib 2021-09 Yes 1{tbl} Take 1 Univ ers (IMBRUVICA) 2-03 tablet by ity of 420 mg Tab 13:21: mouth in [place] 14 the Medical morning. Branch ALBUTEROL 2021-09 Yes Inhale as Uni vers INHALE 2-03 needed. ity of 13:21: [address] ibrutinib 2021-09 Yes 1{tbl} Take 1 Univ ers (IMBRUVICA) 2-03 tablet by ity of 420 mg Tab 13:21: mouth in [place] 14 the Medical morning. Branch ALBUTEROL 2021-09 Yes Inhale as Uni vers INHALE 2-03 needed. ity of 13:21: [address] ibrutinib 2021-09 Yes 1{tbl} Take 1 Univ ers (IMBRUVICA) 2-03 tablet by ity of 420 mg Tab 13:21: mouth in [place] 14 the Medical morning. Branch ALBUTEROL 2021-09 Yes Inhale as Uni vers INHALE 2-03 needed. ity of 13:21: [address] ibrutinib 2021-09 Yes 1{tbl} Take 1 Univ ers (IMBRUVICA) 2-03 tablet by ity of 420 mg Tab 13:21: mouth in [place] 14 the Medical morning. [place] ALBUTEROL 2021-09 Yes Inhale as Uni vers INHALE 2-03 needed. ity of 13:21: [address] 2021-09 Yes 1{tbl} Take 1 Univ ers (IMBRUVICA) 2-03 tablet by ity of 420 mg Tab 13:21: mouth in [place] 14 the Medical morning. [place] ALBUTEROL 2021-09 Yes Inhale as Uni vers INHALE 2-03 needed. ity of 13:21: [address] 2021-09 Yes 1{tbl} Take 1 Univ ers (IMBRUVICA) 2-03 tablet by ity of 420 mg Tab 13:21: mouth in [place] 14 the Medical morning. [place] ALBUTEROL 2021-09 Yes Inhale as Uni vers INHALE 2-03 needed. ity of 13:21: [address] ibrutinib 2021-09 Yes 1{tbl} Take 1 Univ ers (IMBRUVICA) 2-03 tablet by ity of 420 mg Tab 13:21: mouth in [place] 14 the Medical morning. [place] ALBUTEROL 2021-09 Yes Inhale as Uni vers INHALE 2-03 needed. ity of 13:21: [address] iohexol 2021-09- No [id number] 100mL 100 mL, Univers (OMNIPAQUE 2-03 12-03 Injection, it y of 300-100 mL) 01:45: 01:36 ONCE, 1 [place] injection 00 :00 dose, On Medica l 100 mL Fri [place] 08/06/22 at 1945, Routine lidocaine 2021-09 Yes PRN, Univers 1% (PF) 2-03 Starting ity of (XYLOCAINE) 00:25: on Fri [place] injection 08 08/06/22 at [facility] [address] [place] [address] Until Discontinu ed, Routine FENTanyl PF 2021-09 Yes Slow IV Uni vers (SUBLIMAZE 2-03 Push, PRN, ity of (PF)) 00:25: Starting [place] injection 04 on Fri [facility] 08/06/22 at [place] 1825, Until Discontinu ed, Routine midazolam 2021-09 Yes IV Push, Univ ers (VERSED) 10-08 PRN, ity of injection 00:25: [place] 03 on Tue Medical 08/06/22 at Branch 1825, Until Discontinu ed, Routine levoFLOXaci 2021-09- No [id number] 750mg Take 1 Univers n 750 mg 10-08 8 tablet by ity o f tablet 00:00: 05:59 mouth [place] 00 :00 every 24 Medical (- [place] ur) hours for 2 days. levoFLOXaci 2021-09- No [id number] 750mg Take 1 Univers n 750 mg 10-08 8 tablet by ity o f tablet 00:00: 05:59 mouth [place] 00 :00 every 24 Medical (- [place] ur) hours for 2 days. amoxicillin 2021-09- No [id number] 1{tbl} Take 1 Univers -clavulanat 10-08 8 tablet by it y of e 875-125 00:00: 00:00 mouth in [place] mg per 00 :00 the Medical tablet morning Branch and 1 tablet in the evening. Do all this for 2 days. amoxicillin 2021-09- No [id number] 1{tbl} Take 1 Univers -clavulanat 10-08 8 tablet by it y of e 875-125 00:00: 00:00 mouth in [place] mg per 00 :00 the Medical tablet morning Branch and 1 tablet in the evening. Do all this for 2 days. cefTRIAXone 2021-09- No 2000mg 2,000 mg, Univers (ROCEPHIN) 10-06 Intravenou it y of 2,000 mg in 00:30: 00:29 s, Q24H [place] water for 00 :00 ABX, 5 Medical injection, doses, Branch sterile 20 First dose mL SIVP on Wed syringe 08/04/22 at 1830, Last dose on 08/08/22 at 1830, 20 mL
Reas on for Anti-Infec tive: Documented Infection< br>Documen loki Infection Site: Blood
D uration of Therapy: 10 days cefTRIAXone 2021-09- No 2000mg 2,000 mg, Univers (ROCEPHIN) 10-02 Intravenou it y of 2,000 mg in 18:15: 19:16 s, Q24H [place] water for 00 :25 ABX, 7 Medical injection, doses, Branch sterile 20 First dose mL SIVP (after syringe last modificati on) on 08/02/22 at 1215, Last dose on [place] 08/08/22 at 1215, 20 mL
Reas on for Anti-Infec tive: Documented Infection& lt;br>Docu mented Infection Site: Abdominal< br>Duratio n of Therapy: 7 days cefTRIAXone 2021-09- No 1000mg 1,000 mg, Univers (ROCEPHIN) 10-01 Intravenou it y of 1,000 mg in 18:15: 16:45 s, Q24H [place] NaCl 0.9% 00 :56 ABX, 5 Medical (NS) 50 mL doses, Branch MINI-BAG First dose on [place] 08/01/22 at 1215, Last dose on [facility] 08/05/22 at 1215, Administer over 30 Minutes, 50 mL
Reas on for Anti-Infec tive: Documented Infection< br>Documen loki Infection Site: Abdominal< br>Duratio n of Therapy: 7 days KCL 2021-09- No 40meq 40 mEq, Univer s mEq/15 mL 10-01 Oral, ity of solution 40 15:30: 15:29 ONCE, 1 [place] mEq 00 :00 dose, On Medical [place] Branch 08/01/22 at 0930, Routine KCL 20 2021-09 No 40meq 40 mEq, Univer s mEq/15 mL 09-30 Oral, ity of solution 40 14:00: 15:03 ONCE, 1 [place] mEq 00 :00 dose, On Medical [facility] 07/31/22 at 0800, Routine piperacilli [...] of Tab 420 mg 15:00: DAILY, [place] 00 First dose Medical on Tue Branch 07/30/22 at 0900, Until Discontinu ed, Routine KCL 20 2021-09- No 40meq 40 mEq, Univer s mEq/15 mL 09-29 Oral, ity of solution 40 15:00: 14:22 ONCE, 1 [place] mEq 00 :00 dose, On Medical Fri Branch 07/30/22 at 0900, Routine lactated 2021-09- No 30mL/kg at 999 Uni vers ringers [...] 09-29 Oral, ity of (TYLENOL) 12:08: Q6HPRN, [place] tablet 650 17 Starting Medic al mg on Tue Branch 07/30/22 at 0608, Until Discontinu ed, Routine, Pain (scale 1-3), Temp > 38.5 C pantoprazol 2021-09 Yes 40mg 40 mg, Univ ers e 09-28 Oral, ity of (PROTONIX) 16:30: DAILY, [place] EC tablet 00 First dose [...] at 999 Unive rs ringers IV 09-28 mL/hr, 500 it y of infusion 01:41: 02:35 mL, [place] 500 mL 00 :55 Intravenou Medical s, ONCE, 1 Branch dose, On Tue07/28/22 at 1945, Routine iohexol 2021-09- No [id number] 100mL 100 mL, Univers (OMNIPAQUE 09-27 Injection, it y of 300-100 mL) 22:00: 21:59 ONCE, 1 [place] injection 00 :00 dose, On Medica l 100 mL Wed Branch 07/28/22 at 1600, Routine piperacilli 2021-09- No [id number] 3.375g 3.375 g, Univers n-tazobacta 09-27 IV [...] 21:45 Starting [place] injection 00 :52 on [facility] 07/28/22 Branch at 1157, Until Discontinu ed, Routine midazolam 2021-09- No IV Push, Uni vers (VERSED) 09-27 PRN, ity of injection 17:56: 20:52 Starting [place] 00 :00 on [facility] 07/28/22 Branch at 1156, Until Discontinu ed, Routine ondansetron 2021-09- No Slow IV Un brayan (ZOFRAN 09-27 Push, PRN, ity o f (PF)) 17:51: 17:51 Starting [place] injection 05 :05 on [facility] 07/28/22 Branch at 1151, Until Discontinu ed, Routine gadobenate 2021-09- No [id number] .2mL/kg 9.7 mL Univers dimeglumine 09-27 (0.2 mL/kg i ty of (MULTIHANCE 04:30: 04:11 ?48.5 kg), [place] -10 mL) 00 :00 Intravenou Medica l injection s, ONCE, 1 Bran ch 9.7 mL dose, On 07/27/22 at 2230, Routine maalox:diph 2021-09 Yes 15mL 15 mL, [facility] ers enhydrAMINE 09-27 Oral, ity of :lidocaine 01:45: DAILY, [place] 2 % viscous 00 First dose Me dical 1:1:1 on Tue [place] [facility] at 1945, oral Until suspension Discontinu 15 mL ed, Routine FENTanyl PF 2021-09- No Slow IV Un brayan (SUBLIMAZE 09-26 Push, PRN, it y of (PF)) 23:22: 23:49 Starting [place] injection 40 :07 on [facility] 07/27/22 Branch at 1722, Until Discontinu ed, Routine midazolam 2021-09- No IV Push, Uni vers (VERSED) 09-26 PRN, ity of injection 23:22: 23:49 Starting [place] 33 :01 on [facility] 07/27/22 Branch at 1722, Until Discontinu ed, [...] 200 Medical NS 50 mL IV mL/hr [place] piggyback Administer (CNR) over 15 Minutes, Q4HPRN, Starting on Tue07/27/22 at 1012, Until Tue07/27/22 at 1344, Routine, N/V unresponsi ve to Ondansetro n tamsulosin 2021-09 Yes .4mg 0.4 mg, Univ ers (FLOMAX) 09-26 Oral, ity of capsule 0.4 15:00: DAILY, [place] mg 00 First dose Medical on [facility] 07/27/22 at 0900, Until Discontinu ed, Routine KCL 2021-09- No 40meq 40 mEq, Univers (KLOR-CON 09-26 Oral, ity of M20) tablet 10:00: 09:34 ONCE, 1 [place] 40 mEq 00 :00 dose, On Medical [facility] 07/27/22 at 0400, Routine simethicone 2021-09 Yes 80mg 80 mg, Univ ers (GAS RELIEF 09-26 Oral, ity of (SIMETHICON 09:15: PC+HS, [place] E)) 00 First dose Medical chewable on Tue tablet 80 07/27/22 mg at 0315, Until Discontinu ed, Routine lactated 2021-09- No 1000mL at 125 [facility] ers ringers IV 09-25 11-29 mL/hr, ity of infusion 22:15: 16:45 1,000 mL, [place] 1,000 mL 00 :21 IV Medical Infusion, Branch CONTINUOUS , Starting on Tue07/26/22 at 1615, Until Tue08/03/22 at 1045, Routine lactated 2021-09- No 1000mL at 999 [facility] ers ringers IV 09-25 11-21 mL/hr, ity of infusion 22:00: 23:20 1,000 mL, [place] 1,000 mL 00 :56 Intravenou Medic al s, ONCE, 1 Branch dose, On Tue07/26/22 at 1600, Routine HYDROcodone 2021-09 Yes 1{tbl} 1 tablet, Univers -acetaminop 09-25 Oral, ity of hen (NORCO 21:34: Q6HPRN, [place] 5) 5-325 mg 10 Starting Medi daniel tablet 1 on Tue tablet 07/26/22 at 1534, Until Discontinu ed, Routine, Pain (scale 7-10) ondansetron 2021-09 No 4mg 4 mg, Slow Univers (ZOFRAN 09-25 IV Push, ity of (PF)) 21:08: 17:55 Q6HPRN, [place] injection 4 28 :51 Starting Medi daniel mg on Tue07/26/22 at 1508, Until Tue07/30/22 at 1155, Routine, Nausea and Vomiting (N/V) albuterol 2021-09 Yes 1{puff} 1 Puff, Un [place] (VENTOLIN) 09-25 Inhalation ity of inhaler 1 20:09: , Q4HPRN, [place] Puff 56 Starting Medical on Tue Branch 07/26/22 at 1409, Until Discontinu ed, Shortness of Breath, Wheezing, Chest tightness, Bronchospa sm ibrutinib 2021-09 Yes 1{tbl} Take 1 [facility] ers (IMBRUVICA) 09-25 tablet by ity of 420 mg Tab 14:11: mouth in [place] 06 the Medical morning. Branch ALBUTEROL 2021-09 Yes Inhale as Uni vers INHALE 1-21 needed. ity of 14:11: [address] ibrutinib 2021-09 Yes 1{tbl} Take 1 Univ ers (IMBRUVICA) 1-21 tablet by ity of 420 mg Tab 14:11: mouth in [place] 06 the Medical morning. Branch ALBUTEROL 2021-09 Yes Inhale as Uni vers INHALE 1-21 needed. ity of 14:11: [address] ibrutinib 2021-09 Yes 1{tbl} Take 1 Univ ers (IMBRUVICA) 1-21 tablet by ity of 420 mg Tab 14:11: mouth in [place] 06 the Medical morning. Branch ALBUTEROL 2021-09 Yes Inhale as Uni vers INHALE 1-21 needed. ity of 14:11: [address] ibrutinib 2021-09 Yes 1{tbl} Take 1 Univ ers (IMBRUVICA) 1-21 tablet by ity of 420 mg Tab 14:11: mouth in [place] 06 the Medical morning. Branch ALBUTEROL 2021-09 Yes Inhale as Uni vers INHALE 1-21 needed. ity of 14:11: [address] ibrutinib 2021-09 Yes 1{tbl} Take 1 Univ ers (IMBRUVICA) 1-21 tablet by ity of 420 mg Tab 14:11: mouth in [place] 06 the Medical morning. Branch ALBUTEROL 2021-09 Yes Inhale as Uni vers INHALE 1-21 needed. ity of 14:11: [address] ibrutinib 2021-09 Yes 1{tbl} Take 1 Univ ers (IMBRUVICA) 1-21 tablet by ity of 420 mg Tab 14:11: mouth in [place] 06 the Medical morning. Branch ALBUTEROL 2021-09 Yes Inhale as Uni vers INHALE 1-21 needed. ity of 14:11: [address] ibrutinib 2021-09 Yes 1{tbl} Take 1 Univ ers (IMBRUVICA) 1-21 tablet by ity of 420 mg Tab 14:11: mouth in [place] 06 the Medical morning. Branch ALBUTEROL 2021-09 Yes Inhale as Uni vers INHALE 1-21 needed. ity of 14:11: [address] iopamidol 2021-09- No [id number] 80mL 80 mL, Univers (ISOVUE 09-09 Intravenou [...] Tab 12:20: mouth Medica l 21 daily. [place] ibrutinib 2021-09 Yes 420mg QD Take [address] (Imbruvica) 0-31 mg by [facility] mg Tab 12:20: mouth Medica l 21 daily. [facility] ibrutinib 2021-09 Yes 420mg QD Take [address] (Imbruvica) 0-31 mg by [facility] mg Tab 12:20: mouth Medica l 21 daily. Center ibrutinib 2021-09 Yes 420mg QD Take [address] (Imbruvica) 0-31 mg by [facility] mg Tab 12:20: mouth Medica l 21 daily. [place] ibrutinib 2021-09 Yes 420mg QD Take [address] (Imbruvica) 0-31 mg by [facility] 420 mg Tab 12:20: mouth Medica l 21 daily. Center ibrutinib 2021-09 Yes 420mg QD Take [address] (Imbruvica) 0-31 mg by [facility] mg Tab 12:20: mouth Medica l 21 daily. [place] tamsulosin 2021-09 Yes [id number] .4mg Take 1 U nivers 0.4 mg 24 0-24 capsule by ity of hr capsule 00:00: mouth in [place] 00 the Medical morning. [place] tamsulosin 2021-09 Yes [id number] .4mg Take 1 U nivers 0.4 mg 24 0-24 capsule by ity of hr capsule 00:00: mouth in [place] as 00 the Medical morning. [place] tamsulosin 2021-1 Yes [id number] .4mg Take 1 [facility] 0.4 mg 24 0-24 capsule by [facility] of hr capsule 00:00: mouth in [place] as 00 the Medical morning. [facility] tamsulosin 2021-1 Yes [id number] .4mg Take 1 [facility] 0.4 mg 24 0-24 capsule by [facility] of hr capsule 00:00: mouth in [place] as 00 the Medical morning. [facility] tamsulosin 2021-1 Yes [id number] .4mg Take 1 [facility] 0.4 mg 24 0-24 capsule by [facility] of hr capsule 00:00: mouth in [place] as 00 the Medical morning. [facility] tamsulosin 2021-1 Yes [id number] .4mg Take 1 [facility] 0.4 mg 24 0-24 capsule by [facility] of hr capsule 00:00: mouth in [place] as 00 the Medical morning. [facility] tamsulosin 2021-1 Yes [id number] .4mg Take 1 [facility] 0.4 mg 24 0-24 capsule by [facility] of hr capsule 00:00: mouth in [place] as 00 the Medical morning. [facility] tamsulosin 2021-1 Yes [id number] .4mg Take 1 U nivers 0.4 mg 24 0-24 capsule by ity of hr capsule 00:00: mouth in [place] 00 the Medical morning. Branch tamsulosin 2021-1 Yes [id number] .4mg Take 1 U nivers 0.4 mg 24 0-24 capsule by ity of hr capsule 00:00: mouth in [place] 00 the Medical morning. Branch tamsulosin 2021-1 Yes [id number] .4mg Take 1 U nivers 0.4 mg 24 0-24 capsule by ity of hr capsule 00:00: mouth in [place] 00 the Medical morning. Branch tamsulosin 2021-1 Yes [id number] .4mg Take 1 U nivers 0.4 mg 24 0-24 capsule by ity of hr capsule 00:00: mouth in [place] 00 the Medical morning. Branch tamsulosin 2021-1 Yes [id number] .4mg Take 1 U nivers 0.4 mg 24 0-24 capsule by ity of hr capsule 00:00: mouth in [place] 00 the Medical morning. Branch tamsulosin 2022-1 Yes [id number] .4mg Take 1 U nivers 0.4 mg 24 0-24 capsule by ity of hr capsule 00:00: mouth in [place] 00 the Medical morning. Branch tamsulosin 2021-09 Yes [id number] .4mg Take 1 U nivers 0.4 mg 24 0-24 capsule by ity of hr capsule 00:00: mouth in [place] 00 the Medical morning. Branch tamsulosin 2021-09 Yes [id number] .4mg Take 1 U nivers 0.4 mg 24 0-24 capsule by ity of hr capsule 00:00: mouth in [place] 00 the Medical morning. Branch tamsulosin 2021-09 Yes [id number] .4mg Take 1 U nivers 0.4 mg 24 0-24 capsule by ity of hr capsule 00:00: mouth in [place] 00 the Medical morning. Branch tamsulosin 2021-09 Yes [id number] .4mg Take 1 U nivers 0.4 mg 24 0-24 capsule by ity of hr capsule 00:00: mouth in [place] 00 the Medical morning. Branch tamsulosin 2021-09 Yes [id number] .4mg Take 1 U nivers 0.4 mg 24 0-24 capsule by ity of hr capsule 00:00: mouth in [place] 00 the Medical morning. Branch tamsulosin 2021-09 Yes [id number] .4mg Take 1 U nivers 0.4 mg 24 0-24 capsule by ity of hr capsule 00:00: mouth in [place] 00 the Medical morning. Branch tamsulosin 2021-09 Yes [id number] .4mg Take 1 U nivers 0.4 mg 24 0-24 capsule by ity of hr capsule 00:00: mouth in [place] 00 the Medical morning. Branch tamsulosin 2021-09- No [id number] .4mg Take 1 Univers 0.4 mg 24 [...] INHALE 0-23 needed. ity of 14:20: [address] Branch ibrutinib 2021-09 Yes 1{tbl} Take 1 Univ ers (IMBRUVICA) 0-23 tablet by ity of 420 mg Tab 14:20: mouth in [place] 29 the Medical morning. Branch ALBUTEROL 2021-09 Yes Inhale as Uni vers INHALE 0-23 needed. ity of 14:20: [address] Branch ibrutinib 2021-09 Yes 1{tbl} Take 1 Univ ers (IMBRUVICA) 0-23 tablet by ity of 420 mg Tab 14:20: mouth in [place] 29 the Medical morning. Branch ALBUTEROL 2021-09 Yes Inhale as Uni vers INHALE 0-23 needed. ity of 14:20: [address] Branch ibrutinib 2021-09 Yes 1{tbl} Take 1 Univ ers (IMBRUVICA) 0-23 tablet by ity of 420 mg Tab 14:20: mouth in [place] 29 the Medical morning. Branch ALBUTEROL 2021-09 Yes Inhale as Uni vers INHALE 0-23 needed. ity of 14:20: [address] Branch ibrutinib 2021-09 Yes 1{tbl} Take 1 Univ ers (IMBRUVICA) 0-23 tablet by ity of 420 mg Tab 14:20: mouth in [place] 29 the Medical morning. Branch ALBUTEROL 2021-09 Yes Inhale as Uni vers INHALE 0-23 needed. ity of 14:20: [address] Branch cyclobenzap 2021-09 Yes [id number] 5mg Take 1 Univers rine 5 mg 0-23 tablet by ity o f tablet 00:00: mouth in [place] the Medical morning Branch and 1 tablet at noon and 1 tablet in the evening. cyclobenzap 2021-09 Yes [id number] 5mg Take 1 Univers rine 5 mg 0-23 tablet by ity o f tablet 00:00: mouth in [place] the Medical morning Branch and 1 tablet at noon and 1 tablet in the evening. cyclobenzap 2021-09 Yes [id number] 5mg Take 1 Univers rine 5 mg 0-23 tablet by ity o f tablet 00:00: mouth in [place] the Medical morning Branch and 1 tablet at noon and 1 tablet in the evening. cyclobenzap 2022-1 Yes [id number] 5mg Take 1 Univers rine 5 mg 0-23 tablet by ity o f tablet 00:00: mouth in [place] 00 the Medical morning Branch and 1 tablet at noon and 1 tablet in the evening. cyclobenzap 2021-09 Yes [id number] 5mg Take 1 Univers rine 5 mg 0-23 tablet by ity o f tablet 00:00: mouth in [place] 00 the Medical morning Branch and 1 tablet at noon and 1 tablet in the evening. cyclobenzap 2021-09 Yes [id number] 5mg Take 1 Univers rine 5 mg 0-23 tablet by ity o f tablet 00:00: mouth in [place] 00 the Medical morning Branch and 1 tablet at noon and 1 tablet in the evening. cyclobenzap 2021-09 Yes [id number] 5mg Take 1 Univers rine 5 mg 0-23 tablet by ity o f tablet 00:00: mouth in [place] 00 the Medical morning Branch and 1 tablet at noon and 1 tablet in the evening. cyclobenzap 2021-09 Yes [id number] 5mg Take 1 Univers rine 5 mg 0-23 tablet by ity o f tablet 00:00: mouth in [place] 00 the Medical morning Branch and 1 tablet at noon and 1 tablet in the evening. cyclobenzap 2021-09 Yes [id number] 5mg Take 1 Univers rine 5 mg 0-23 tablet by ity o f tablet 00:00: mouth in [place] 00 the Medical morning Branch and 1 tablet at noon and 1 tablet in the evening. cyclobenzap 2021-09 Yes [id number] 5mg Take 1 Univers rine 5 mg 0-23 tablet by ity o f tablet 00:00: mouth in [place] 00 the Medical morning Branch and 1 tablet at noon and 1 tablet in the evening. cyclobenzap 2021-09 Yes [id number] 5mg Take 1 Univers rine 5 mg 0-23 tablet by ity o f tablet 00:00: mouth in [place] 00 the Medical morning Branch and 1 tablet at noon and 1 tablet in the evening. cyclobenzap 2021-09 Yes [id number] 5mg Take 1 Univers rine 5 mg 0-23 tablet by ity o f tablet 00:00: mouth in [place] 00 the Medical morning Branch and 1 tablet at noon and 1 tablet in the evening. cyclobenzap 2021-09 Yes [id number] 5mg Take 1 Univers rine 5 mg 0-23 tablet by ity o f tablet 00:00: mouth in [place] 00 the Medical morning Branch and 1 tablet at noon and 1 tablet in the evening. cyclobenzap 2021-09 Yes [id number] 5mg Take 1 Univers rine 5 mg 0-23 tablet by ity o f tablet 00:00: mouth in [place] 00 the Medical morning Branch and 1 tablet at noon and 1 tablet in the evening. cyclobenzap 2021-09 Yes [id number] 5mg Take 1 Univers rine 5 mg 0-23 tablet by ity o f tablet 00:00: mouth in [place] 00 the Medical morning Branch and 1 tablet at noon and 1 tablet in the evening. cyclobenzap 2021-09 Yes [id number] 5mg Take 1 Univers rine 5 mg 0-23 tablet by ity o f tablet 00:00: mouth in [place] 00 the Medical morning Branch and 1 tablet at noon and 1 tablet in the evening. cyclobenzap 2021-09 Yes [id number] 5mg Take 1 Univers rine 5 mg 0-23 tablet by ity o f tablet 00:00: mouth in [place] 00 the Medical morning Branch and 1 tablet at noon and 1 tablet in the evening. cyclobenzap 2021-09 Yes [id number] 5mg Take 1 Univers rine 5 mg 0-23 tablet by ity o f tablet 00:00: mouth in [place] 00 the Medical morning Branch and 1 tablet at noon and 1 tablet in the evening. cyclobenzap 2021-09 Yes [id number] 5mg Take 1 Univers rine 5 mg 0-23 tablet by ity o f tablet 00:00: mouth in [place] 00 the Medical morning Branch and 1 tablet at noon and 1 tablet in the evening. cyclobenzap 2021-09 Yes [id number] 5mg Take 1 Univers rine 5 mg 0-23 tablet by ity o f tablet 00:00: mouth in [place] 00 the Medical morning Branch and 1 tablet at noon and 1 tablet in the evening. cyclobenzap 2021-09 [id number] 5mg Take 1 Univers rine 5 mg 0-23 03-28 tablet by ity of tablet 00:00: 00:00 mouth in [place] 00 :00 the Medical morning Branch and [...] days. Indication s: acute pain acetaminoph 2021-09 4647 1{tbl} Take 1 U nivers en-codeine [...] days. Indication s: acute pain acetaminoph 2021-09 4647 1{tbl} Take 1 U nivers en-codeine 0-23 10-25 tablet by ity of 300-30 mg 00:00: 04:59 mouth [place] tablet 00 :00 every 4 Medical (four) Branch hours as needed for Pain (scale 7-10) for up to 1 day. Indication s: acute pain cyclobenzap 2021-09- No [id number] 5mg Take 1 Univers rine 5 mg [...] Indication s: acute pain iopamidol 2021-09 No [id number] 65mL 65 mL, U nivers (ISOVUE 0-22 10-22 Intravenou ity o f 370-500 mL) 16:15: 16:15 s, ONCE, 1 [place] injection 00 :00 dose, On Medica l 65 mL Sat Branch 06/26/22 at 1115, Routine lidocaine 2021-09- No 1{patch 1 Patch, Univers (LIDODERM) 0-06-26 } Topical, ity of 5 % (700 11:30: 23:13 Admin[place] mg/patch) 00 :00 over 12 Medical patch 1 Hours, Branch Patch ONCE, 1 dose, On 06/26/22 at 0630, Routine ondansetron 2021-09 Yes 4mg 4 mg, Unive rs (ZOFRAN-ODT 0-22 Oral, ity of ) 10:45: Q6HPRN, [place] disintegrat 00 Starting Medi daniel ing tablet on Sat Branch 4 mg 06/26/22 at 0545, Until Discontinu ed, Routine, Nausea and Vomiting (N/V) cyclobenzap 2021-09 Yes 5mg 5 mg, Unive rs rine 0-22 Oral, TID, ity of (FLEXERIL) 10:30: [place] dose [place] tablet 5 mg 00 on Sat Medica l 06/26/22 Branch at 0530, Until Discontinu ed, VIVIENNE morpHINE (2 2021-09 Yes 4mg 4 mg, Slow Univers mg/mL) 0 IV Push, ity of injection 4 02:56: Q4HPRN, [place] mg 33 Starting Medical on Fri Branch 06/25/22 at 2156, Until Discontinu ed, Routine, Pain (scale 7-10) iopamidol 2021-09- No [id number] 200mL 200 mL, Univers (ISOVUE 006-25 Enteral, [...] 2021-09- No Slow IV Univ ers 1% 0-25 06- Push, ONCE ity of (XYLOCAINE) 14:48: 18:15 [...] vers INHALE 0-20 needed. ity of 15:04: [address] ibrutinib 2021-09 Yes 1{tbl} Take 1 Univ ers (IMBRUVICA) 0-20 tablet by ity of 420 mg Tab 15:04: mouth in [place] 41 the Medical morning. Branch ALBUTEROL 2021-09 Yes Inhale as Uni vers INHALE 0-20 needed. ity of 15:04: [address] ibrutinib 2021-09 Yes 1{tbl} Take 1 Univ ers (IMBRUVICA) 0-20 tablet by ity of 420 mg Tab 15:04: mouth in [place] 41 the Medical morning. Branch ALBUTEROL 2021-09 Yes Inhale as Uni vers INHALE 0-20 needed. ity of 15:04: [address] Indomethaci 2021-09- No PRN, Unive rs n (INDOCIN) 0-19 1019 Starting ity of suppository 15:07: 18:22 on Tue [place] 00 :35 06/23/22 Medical at 1007, Branch Until Tue06/23/22 at 1322, Routine, Intra-op ibrutinib 2021-09 Yes 1{tbl} Take 1 Univ ers (IMBRUVICA) 0-19 tablet by ity of 420 mg Tab 13:22: mouth in [place] 35 the Medical morning. Branch ALBUTEROL 2021-09 Yes Inhale as Uni vers INHALE 0-19 needed. ity of 13:22: [address] tamsulosin 2021-09 Yes .4mg 0.4 mg, Univ ers (FLOMAX) 0-18 Oral, ity of capsule 0.4 22:45: DAILY, [place] 00 First dose Medical on [facility] 06/22/22 at 1745, Until Discontinu ed, Routine tamsulosin 2021-09 Yes .4mg 0.4 mg, Univ ers (FLOMAX) 0-18 Oral, ity of capsule 0.4 22:45: DAILY, [place] 00 First dose Medical on [facility] 06/22/22 at 1745, Until Discontinu ed, Routine aquaphilic 2021-09 Yes Topical, Uni vers ointment 0-18 PRN, ity of (AQUAPHOR) 22:43: Starting [place] ointment 14 on [facility] 06/22/22 [place] at 1743, Until Discontinu ed, Routine, put under pad for minor wound care aquaphilic 2021-09 Yes Topical, Uni vers ointment 0-18 PRN, ity of (AQUAPHOR) 22:43: Starting [place] ointment 14 on [facility] 06/22/22 [place] at 1743, Until Discontinu ed, Routine, put under pad for minor wound care tc 2021-09- No [id number] 4.9mCi 4.9 Univer s 99m-mebrofe 0-17 10-17 [facility]urie [facility] [place] 20:15: 20:10 , [place] injection 00 :00 Intravenou Medi daniel 4.9 s, ONCE, 1 Branch millicurie dose, On 06/21/22 at 1515, Routine ondansetron 2021-09 Yes 4mg 4 mg, Unive rs (ZOFRAN-ODT 0-17 Oral, ity of ) 02:00: Q8HPRN, [place] disintegrat 09 Starting Medi daniel ing tablet on [place] Branch 4 mg 06/20/22 at 2100, Until Discontinu ed, Routine, Nausea and Vomiting (N/V) ondansetron 2021-09- No 4mg 4 mg, Univ ers (ZOFRAN-ODT 0-17 - Oral, ity of ) 02:00: 10:31 Q8HPRN, [place] disintegrat 09 :55 Starting Medi daniel ing tablet on [place] Branch 4 mg 06/20/22 at 2100, Until 06/26/22 at 0531, Routine, Nausea and Vomiting (N/V) ibrutinib 2021-09 Yes 420mg 420 mg, Univ ers (IMBRUVICA) 0-15 Oral, ity of Tab 420 mg 14:00: DAILY, [place] 00 First dose Medical on [facility] Branch 06/19/22 at 0900, Until Discontinu ed, Routine ibrutinib 2021-09 Yes 420mg 420 mg, Univ ers (IMBRUVICA) 0-15 Oral, ity of Tab 420 mg 14:00: DAILY, [place] 00 First dose Medical on [facility] Branch 06/19/22 at 0900, Until Discontinu ed, Routine iohexol 2021-09- No [id number] 80mL 80 mL, Uni vers (OMNIPAQUE 0-15 10-15 Intravenou it y of 350 07:45: 07:42 s, ONCE, 1 [place] BULK-100 00 :00 dose, On Medical mL) [facility] injection 06/19/22 80 mL at 0245, [...] at 1700, Until Discontinu ed, Routine ondansetron 2021-09- No 4mg 4 mg, Univ ers (ZOFRAN) 0-14 17 Oral, ity of tablet 4 mg 11:45: 02:00 Q6HPRN, [place] :25 Starting Medical on Tue Branch 06/18/22 at 0645, Until 06/20/22 at 2100, Routine, Nausea and Vomiting (N/V) acetaminoph 2021-09 Yes 1{tbl} 1 tablet, Univers en-codeine 0-14 Oral, ity of (TYLENOL 11:45: Q4HPRN, [place] #3) 300-30 21 Starting Medic al mg tablet 1 on Tue Branch tablet 06/18/22 at 0645, Until Discontinu ed, Routine, Pain (scale 4-6) acetaminoph 2021-09 Yes 1{tbl} 1 tablet, Univers en-codeine 0-14 Oral, ity of (TYLENOL 11:45: Q4HPRN, [place] #3) 300-30 21 Starting Medic al mg [...] 500mg 500 mg, U nivers LE (FLAGYL) 0-18 06-19 Oral, Q8H, i ty of tablet 500 11:00: 09:58 15 doses, [place] mg 00 :00 First dose Medical on Tue06/18/22 at 0600, Last dose on Tue06/22/22 at 2200, Routine
Reason for Anti-Infec tive: Empiric Therapy for Suspected Infection< br>Empiric Therapy Site: Abdominal< br>Duratio n of therapy: 5 days gadobenate 2021-09- No [id number] .2mL/kg 10.06 mL Univers dimeglumine 006-18 (0.2 [...] 0-14 Oral, ity of (TYLENOL) 05:01: Q6HPRN, [place] tablet 650 49 Starting Medic al mg on Tue Branch 06/18/22 at 0001, Until Discontinu ed, Routine, Pain (scale 1-3) albuterol 2021-09 Yes 1{puff} 1 Puff, Un brayan (VENTOLIN) 0-14 Inhalation ity of inhaler 1 04:59: , Q4HPRN, [place] Puff 21 Starting Medical on [facility] Branch 06/17/22 at 2359, Until Discontinu ed, Wheezing, Shortness of Breath, Bronchospa sm, Chest tightness albuterol 2021-09 Yes 1{puff} 1 Puff, Un brayan (VENTOLIN) 0-14 Inhalation ity of inhaler 1 04:59: , Q4HPRN, [place] Puff 21 Starting Medical on [facility] Branch 06/17/22 at 2359, Until Discontinu ed, Wheezing, Shortness of Breath, Bronchospa sm, Chest tightness iopamidol 2021-09- No [id number] 70mL 70 mL, Univers (ISOVUE 0-06-17 Intravenou ity o f 370-500 mL) 23:15: 22:16 s, ONCE, 1 [place] injection 00 :00 dose, On Medica l 70 mL [facility] Branch 06/17/22 at 1815, Routine ondansetron 2021-09 No 4mg 4 mg, Slow Univers (ZOFRAN 0- IV Push, ity of (PF)) 20:00: 21:15 ONCE, 1 [place] injection 4 00 :00 dose, On Medi daniel mg [facility] Branch 06/17/22 at 1500, STAT morpHINE (4 2021-09 No 4mg 4 mg, Slow Univers mg/mL) 0-17 06-13 IV Push, ity of injection 4 20:00: 21:14 ONCE, 1 [place] mg 00 :00 dose, On Medical [facility] Branch 06/17/22 at 1500, VIVIENNE ibrutinib Yes [...] Nausea for up to 7 days. ondansetron 2021-2- No 4mg Take [address] [facility] (ZOFRAN-ODT 05-19 tablet (4 Brandi kes ) 4 MG 00:00: 23:59 mg total) Medic al disintegrat 00 :00 by mouth Cent er ing tablet every 8 (eight) hours as needed for Nausea for up to 7 days. ondansetron 2021-0 2- No 4mg Take [address] [facility] (ZOFRAN-ODT [...] for up to 7 days. ondansetron 2021-0 2- No 4mg Take [address] [facility] (ZOFRAN-ODT 05-19 tablet (4 Brandi kes ) 4 MG 00:00: 23:59 mg total) Medic al disintegrat 00 :00 by mouth Cent er ing tablet every 8 (eight) hours as needed for Nausea for up to 7 days. amoxicillin 2021-2- No 1{tbl} Q.5D Take [address] -clavulanat 05-19 tablet by Brandi kes e 00:00: 23:59 mouth 2 Medical (AUGMENTIN) 00 :00 (two) Center 875-125 mg times per tablet daily for 5 days. amoxicillin 2021-0 2022- No 1{tbl} Q.5D Take [address] -clavulanat 9-14 - tablet by Brandi kes e 00:00: 23:59 mouth 2 Medical (AUGMENTIN) 00 :00 (two) Center 875-125 mg times per tablet daily for 5 days. amoxicillin 2021-0 202- No 1{tbl} Q.5D Take [address] -clavulanat 9-14 - tablet by Brandi kes e 00:00: 23:59 mouth 2 Medical (AUGMENTIN) 00 :00 (two) Center 875-125 mg times per tablet daily for 5 days. amoxicillin 2021-0 2021- No 1{tbl} Q.5D Take [address] -clavulanat -14 - tablet by Brandi [employer] e 00:00: 23:59 mouth 2 Medical (AUGMENTIN) 00 :00 (two) Center 875-125 mg times per tablet daily for 5 days. amoxicillin 2021-0 2021- No 1{tbl} Q.5D Take [address] -clavulanat -19 05- tablet by [employer] 00:00: 23:59 mouth 2 Medical (AUGMENTIN) 00 :00 (two) Center 875-125 mg times per tablet daily for 5 days. amoxicillin 2021-0 2021- No 1{tbl} Q.5D Take [address] -clavulanat -14 05-24 tablet by [employer] 00:00: 23:59 mouth 2 Medical (AUGMENTIN) 00 :00 (two) Center 875-125 mg times per tablet daily for 5 days. tamsulosin 202-0 2022- No .8mg QD Take [address] [facility] (FLOMAX) 05-11- capsules [facility].4 mg Cap 00:00: 23:59 (0.8 mg Med ical 24 hr 00 :00 total) by Center capsule mouth daily for 90 days. tamsulosin 202-0 2022- No .8mg QD Take 2 [facility] [...] capsule mouth daily for 90 days. HYDROcodone 2021-0 2022- No 1{tbl} Take [address] -acetaminop 05-11 09-14 tablet by Brandi gómez (NORCO 00:00: 00:00 mouth Medic al 5-325) 00 :00 every 6 Center 5-325 mg (six) per tablet hours as needed for up to 7 days. Max Daily Amount: 4 tablets ondansetron 2021-0 2- No 4mg Take [address] [facility] (ZOFRAN-ODT [...] Nausea for up to 7 days. HYDROcodone 2-0 2021- No 1{tbl} Take [address] -acetaminop 05-11 tablet by Brandi gómez (NORCO 00:00: 00:00 mouth Medic al 5-325) 00 :00 every 6 Center 5-325 mg (six) per tablet hours as needed for up to 7 days. Max Daily Amount: 4 tablets ondansetron 2022-0 2- No 4mg Take [address] [facility] (ZOFRAN-ODT [...] Max Daily Amount: 4 tablets ondansetron 2021-0 2- No 4mg Take [address] [facility] (ZOFRAN-ODT [...] days. Max Daily Amount: 4 tablets ondansetron 2022-0 2- No 4mg Take [address] [facility] (ZOFRAN-ODT 05-11 09-13 tablet (4 Brandi kes ) 4 MG 00:00: 23:59 mg total) Medic al disintegrat 00 :00 by mouth Cent er ing tablet every 8 (eight) hours as needed for Nausea for up to 7 days. Ibrutinib Ibrutinib Yes [place] 1 tablet Common 4-11 [facility] 00:00: - [facility] 00 [facility] Fluticasone Fluticasone Yes [place] 1 spray in Common Propionate Propionate Kamara each Spi rit nostril [facility] ProAir ProAir Yes [place] 2 puffs as Co mmon RespiClick RespiClick Kamara needed S pirit [facility] Vitamin Vitamin Yes [place] not Common B-12 B-12 Kamara defined [facility] Centrum Centrum Yes [place] not Common Adults Adults Kamara defined [facility] Allopurinol Allopurinol Yes [place] 1 tablet Common Kamara [facility] Vital Signs Vital Name Observation Time Observation Value Comments Source Systolic blood 2023-04-06 22:00:00 130 mm[facility]Hg[facility] 2023-04-06 22:00:00 82 mm[Hg] Unive [facility] Heart rate 2023-04-06 22:00:00 71 /min [facility] Body temperature 2023-04-06 22:00:00 36.56 [employer] [facility] Respiratory rate 2023-04-06 22:00:00 17 /min [facility] Oxygen saturation in 2023-04-06 22:00:00 97 /min [facility] Arterial blood by [facility] Pulse oximetry Branch Body weight 2023-04-06 18:46:00 48.535 kg [facility] BMI 2023-04-06 18:46:00 19.57 kg/m2 [facility] Systolic blood 2023-02-25 21:11:00 146 mm[facility]Hg] [facility] 2023-02-25 21:11:00 80 mm[Hg] Unive [facility] Heart rate 2023-02-25 21:11:00 97 /min [facility] [place] [facility] Body temperature 2023-02-25 21:11:00 36.06 [employer] [facility] [place] [facility] Respiratory rate 2023-02-25 21:11:00 18 /min [facility] [place] [facility] Oxygen saturation in 2023-02-25 21:11:00 91 /min University of Arterial blood by [facility] Pulse oximetry Branch Body height 2023-02-21 18:45:00 157.5 cm [facility] [place] [facility] Body weight 2023-02-21 18:45:00 54.432 kg [facility] [place] [facility] BMI 2023-02-21 18:45:00 21.95 kg/m2 [facility] [place] [facility] Heart rate 2023-02-24 13:40:00 123 /min [facility] [place] [facility] Oxygen saturation in 2023-02-24 13:40:00 95 /min 4L O2 University of Arterial blood by [facility] Pulse oximetry Branch Systolic blood 2023-02-24 12:45:00 120 mm[Hg] Univer sity of pressure [place] [facility] Diastolic blood 2023-02-24 12:45:00 86 mm[Hg] Unive rsity of pressure [place] [facility] Body temperature 2023-02-24 12:45:00 36.5 [employer] [facility] [place] [facility] Respiratory rate 2023-02-24 12:45:00 20 /min [facility] [place] [facility] Body height 2023-02-21 18:45:00 157.5 cm [facility] [place] [facility] Body weight 2023-02-21 18:45:00 54.432 kg [facility] [place] [facility] BMI 2023-02-21 18:45:00 21.95 kg/m2 [facility] [place] [facility] Systolic blood 2022-11-30 17:24:00 160 mm[Hg] Univer sity of pressure [place] [facility] Diastolic blood 2022-11-30 17:24:00 90 mm[Hg] Unive rsity of pressure [place] [facility] Heart rate 2022-11-30 17:24:00 70 /min [facility] [place] [facility] Body temperature 2022-11-30 17:24:00 36.22 [employer] [facility] [place] [facility] Respiratory rate 2022-11-30 17:24:00 16 /min [facility] [place] [facility] Oxygen saturation in 2022-11-30 17:24:00 96 /min University of Arterial blood by [facility] Pulse oximetry Branch Body height 2022-11-30 01:00:00 157.5 cm [facility] [place] [facility] Body weight 2022-11-30 01:00:00 56.7 kg [facility] [place] [facility] BMI 2022-11-30 01:00:00 22.86 kg/m2 [facility] [place] [facility] Systolic blood 2022-08-07 13:08:00 128 mm[Hg] Univer sity of pressure [place] [facility] Diastolic blood 2022-08-07 13:08:00 78 mm[Hg] Unive rsity of pressure [place] [facility] Heart rate 2022-08-07 13:08:00 78 /min [facility] [place] [facility] Body temperature 2022-08-07 13:08:00 37.06 [employer] [facility] [place] [facility] Respiratory rate 2022-08-07 13:08:00 16 /min [facility] [place] [facility] Oxygen saturation in 2022-08-07 13:08:00 95 /min University of Arterial blood by [facility] Pulse oximetry Branch Body height 2022-07-28 15:52:00 157.5 cm [facility] [place] [facility] Body weight 2022-07-28 15:52:00 48.535 kg [facility] [place] [facility] BMI 2022-07-28 15:52:00 19.57 kg/m2 [facility] [place] [facility] BMI 2022-07-12 17:06:00 21.36 kg/m2 [facility] [place] [facility] Systolic blood 2022-07-12 17:06:00 120 mm[Hg] Univer sity of pressure [place] [facility] Diastolic blood 2022-07-12 17:06:00 77 mm[Hg] Unive rsity of pressure [place] [facility] Heart rate 2022-07-12 17:06:00 71 /min [facility] [place] [facility] Body temperature 2022-07-12 17:06:00 36.61 [employer] [facility] [place] [facility] Respiratory rate 2022-07-12 17:06:00 18 /min [facility] [place] [facility] Body height 2022-07-12 17:06:00 157.5 cm [facility] [place] [facility] Body weight 2022-07-12 17:06:00 52.98 kg [facility] [place] [facility] Systolic blood 2022-07-10 03:00:00 123 mm[Hg] Univer sity of pressure [place] [facility] Diastolic blood 2022-07-10 03:00:00 80 mm[Hg] Unive rsity of pressure [place] [facility] Heart rate 2022-07-10 03:00:00 81 /min [facility] [place] [facility] Respiratory rate 2022-07-10 03:00:00 16 /min [facility] [place] [facility] Oxygen saturation in 2022-07-10 03:00:00 95 /min University of Arterial blood by [place] [employer] daniel Pulse oximetry Branch Body temperature 2022-07-09 21:24:00 36.56 [facility] [facility] [place] [facility] Body weight 2022-07-09 21:24:00 53.071 kg [facility] [place] [facility] BMI 2022-07-09 21:24:00 21.40 kg/m2 [facility] [place] [facility] Systolic blood 2022-06-27 13:08:00 121 mm[Hg] Univer sity of pressure [facility] Diastolic blood 2022-06-27 13:08:00 78 mm[Hg] Unive rsity of pressure [facility] Heart rate 2022-06-27 13:08:00 74 /min [facility] Body temperature 2022-06-27 13:08:00 36.44 Yamilex Univ ers[facility] Respiratory rate 2022-06-27 13:08:00 18 /min [facility] Oxygen saturation in 2022-06-27 13:08:00 94 /min University of Arterial blood by [place] [employer] daniel Pulse oximetry Branch Body weight 2022-06-24 05:00:00 53.071 kg [facility] BMI 2022-06-24 05:00:00 21.40 kg/m2 [facility] Body height 2022-06-18 10:38:00 157.5 cm [facility] Systolic blood 2022-06-23 09:53:00 128 mm[Hg] Univer sity of pressure [facility] Diastolic blood 2022-06-23 09:53:00 80 mm[Hg] Unive rsity of pressure [facility] Heart rate 2022-06-23 09:53:00 64 /min [facility] Body temperature 2022-06-23 09:53:00 36.44 Yamilex Univ [facility] Respiratory rate 2022-06-23 09:53:00 18 /min [facility] Oxygen saturation in 2022-06-23 09:53:00 98 /min University of Arterial blood by [place] [employer] daniel Pulse oximetry Branch Body weight 2022-06-23 05:00:00 51.982 kg [facility] BMI 2022-06-23 05:00:00 21.40 kg/m2 [facility] Body height 2022-06-18 10:38:00 157.5 cm [facility] WEIGHT 2022-05-14 23:49:00 57.788 kg WEIGHT 2022-05-14 23:49:00 57.788 kg Systolic blood 2023-02-23 16:26:00 142 mm[Hg] Univer sity of pressure [facility] Diastolic blood 2023-02-23 16:26:00 86 mm[Hg] Unive rsity of pressure [facility] Heart rate 2023-02-23 16:26:00 117 /min [facility] Body temperature 2023-02-23 16:26:00 36 Yamilex [facility] Respiratory rate 2023-02-23 16:26:00 22 /min [facility] Oxygen saturation in 2023-02-23 16:26:00 92 /min University of Arterial blood by [place] [employer] daniel Pulse oxim[facility] Branch Body height 2023-02-21 18:45:00 157.5 cm [facility] Body weight 2023-02-21 18:45:00 54.432 kg [facility] BMI 2023-02-21 18:45:00 21.95 kg/m2 [facility] Systolic blood 2022-08-07 13:08:00 128 mm[Hg] Univer sity of pressure [facility] Diastolic blood 2022-08-07 13:08:00 78 mm[Hg] [facility] Heart rate 2022-08-07 13:08:00 78 /min [facility] Body temperature 2022-08-07 13:08:00 37.06 Yamilex [facility] Respiratory rate 2022-08-07 13:08:00 16 /min [facility] Oxygen saturation in 2022-08-07 13:08:00 95 /min University of Arterial blood by [facility] Pulse oximetry Branch Systolic blood 2022-07-30 17:53:00 111 mm[Hg] [facility] Diastolic blood 2022-07-30 17:53:00 71 mm[Hg] Unive [facility] Heart rate 2022-07-30 17:53:00 94 /min [facility] Oxygen saturation in 2022-07-30 17:53:00 100 /min University of Arterial blood by [facility] Pulse oximetry Branch Body temperature 2022-07-30 17:52:00 36.28 Yamilex [facility] Respiratory rate 2022-07-30 17:52:00 18 /min [facility] Systolic blood 2022-07-29 13:46:00 128 mm[Hg] [facility] Diastolic blood 2022-07-29 13:46:00 78 mm[Hg] [facility] Heart rate 2022-07-29 13:46:00 65 /min [facility] Body temperature 2022-07-29 13:46:00 36.22 Yamilex [facility] Respiratory rate 2022-07-29 13:46:00 18 /min [facility] Oxygen saturation in 2022-07-29 13:46:00 96 /min University of Arterial blood by [facility] Pulse oximetry Branch Body height 2022-07-28 15:52:00 157.5 cm [facility] Body weight 2022-07-28 15:52:00 48.535 kg [facility] BMI 2022-07-28 15:52:00 19.57 kg/m2 [facility] Systolic blood 2022-06-27 13:08:00 121 mm[Hg] [facility] [place] Diastolic blood 2022-06-27 13:08:00 78 mm[Hg] Unive rsity of pressure [facility] [place] Heart rate 2022-06-27 13:08:00 74 /min Universi ty [facility] Body temperature 2022-06-27 13:08:00 36.44 [facility]x [facility] Respiratory rate 2022-06-27 13:08:00 18 /min Univ ersity of [facility] [place] Oxygen saturation in 2022-06-27 13:08:00 94 /min University of Arterial blood by [facility] Pulse oximetry Branch Systolic blood 2022-06-26 16:21:00 114 mm[Hg] Univer sity of pressure [facility] [place] Diastolic blood 2022-06-26 16:21:00 70 mm[Hg] Unive rsity of [facility] Heart rate 2022-06-26 16:21:00 88 /min [facility] Body temperature 2022-06-26 16:21:00 36.22 [facility]ilex [facility] [place] Respiratory rate 2022-06-26 16:21:00 18 /min Univ ersity of [facility] [place] Oxygen saturation in 2022-06-26 16:21:00 93 /min University of Arterial blood by [facility] Pulse oximetry Branch Body weight 2022-06-24 05:00:00 53.071 kg [facility] BMI 2022-06-24 05:00:00 21.40 kg/m2 [facility] Body height 2022-06-18 10:38:00 157.5 cm [facility] Systolic blood 2022-05-19 11:33:00 133 mm[Hg] [facility] Diastolic blood 2022-05-19 11:33:00 74 mm[Hg] [facility] Heart rate 2022-05-19 11:33:00 80 /min [facility] Body temperature 2022-05-19 11:33:00 36.17 Yamilex [facility] Respiratory rate 2022-05-19 11:33:00 18 /min [facility] Oxygen saturation in 2022-05-19 11:33:00 97 /min [facility] Arterial blood by Medical Ce nter Pulse oximetry Body weight 2022-05-14 23:49:00 57.788 kg [facility] BMI 2022-05-14 23:49:00 23.30 kg/m2 [facility] Systolic blood 2022-05-11 15:14:00 132 mm[Hg] [facility] Diastolic blood 2022-05-11 15:14:00 84 mm[Hg] [facility] Heart rate 2022-05-11 15:14:00 89 /min [facility] Body temperature 2022-05-11 15:14:00 37.11 Yamilex [facility] Respiratory rate 2022-05-11 15:14:00 18 /min [facility] Oxygen saturation in 2022-05-11 15:14:00 94 /min [facility] Arterial blood by Medical Ce nter Pulse oximetry Procedures Procedure Date / Time Performing Source Performed Clinician LIPASE 2023-04-06 [facility] 19:34:00 [facility] HEPATIC FUNCTION PANEL ([id number]) 2023-04-06 Tri niversity of (ALB,T.PRO,BILI 19:34:00 [facility],BU/BC,ALT,AST,ALK PHOS) Branch BASIC METABOLIC PANEL (NA, K, 2023-04-06 Tri, iversity of CL, CO2, GLUCOSE, BUN, 19:34:00 [facility] ical CREATININE, CA) Branch CBC WITH DIFF 2023-04-06 [facility] 19:34:00 [facility] CONSENT/REFUSAL FOR DIAGNOSIS 2023-04-06 Doctor Unassigned, University of AND TREATMENT 18:41:[address] [place] [facility] [place] TROPONIN I 2023-02-24 [facility] 20:06:00 [facility] TROPONIN I 2023-02-24 Mercedes [facility] 20:06:00 [facility] ENDOSCOPIC RETROGRADE 2023-02-24 Al [facility] 16:27:00 [facility] 2023-02-24 Melendez, [facility] of CHOLANGIOPANCRETOGRAPHY 16:27:[address] [facility] ERCP (ENDO) 2023-02-24 Jordan Juarez [facility] of 15:52:[address] [facility] [place] ERCP (ENDO) 2023-02-24 Jordan Juarez [facility] of 15:52:[address] [facility] [place] TROPONIN I 2023-02-24 Mercedes [facility] of 14:19:00 [facility] TROPONIN I 2023-02-24 [facility] of 14:19:00 [facility] MAGNESIUM 2023-02-24 Kevin [facility] of 10:42:[address] [facility] [place] HEPATIC FUNCTION PANEL ([id number]) 2023-02-24 Chris Brown U niversity of (ALB,T.PRO,BILI 10:42:00 [facility],BU/BC,ALT,AST,ALK PHOS) Branch BASIC METABOLIC PANEL (NA, K, 2023-02-24 Chris Brown Un iversity of CL, CO2, GLUCOSE, BUN, 10:42:00 [place] [facility] CREATININE, [place]) Branch CBC WITH DIFF 2023-02-24 Chris Brown [facility] of 10:42:[address] [facility] [place] PROTHROMBIN TIME / INR 2023-02-24 Chris Brown Universit y of 10:42:[address] [facility] [place] MAGNESIUM 2023-02-24 Kevin [facility] of 10:42:[address] [facility] [place] HEPATIC FUNCTION PANEL ([id number]) 2023-02-24 Chris Brown U niversity of (ALB,T.PRO,BILI 10:42:00 [facility] T,BU/BC,ALT,AST,ALK PHOS) Branch BASIC METABOLIC PANEL (NA, K, 2023-02-24 Chris Brown Un iversity of CL, CO2, GLUCOSE, BUN, 10:42:00 [place] [facility] CREATININE, CA) Branch CBC WITH DIFF 2023-02-24 Chris Brown University of 10:42:[address] [facility] [place] PROTHROMBIN TIME / INR 2023-02-24 Chris Brown Universit y of 10:42:[address] [facility] [place] ENDOSCOPY PROCEDURE 2023-02-24 Doctor Unassigned, Universit y of DOCUMENTATION 05:01:[address] [facility] [place] ENDOSCOPY PROCEDURE 2023-02-24 Doctor Unassigned, Universit y of DOCUMENTATION 05:01:[address] [facility] [place] BLOOD CULTURE SCREEN 2023-02-23 Mercedes [facility] of 17:38:00 [facility] BLOOD CULTURE SCREEN 2023-02-23 Mercedes [facility] of 17:38:00 [facility] MAGNESIUM 2023-02-23 Movva, Chris [place] of 10:05:[address] [facility] [place] CBC WITH DIFF 2023-02-23 Movva, Chris University of 10:05:[address] [facility] [place] COMP. METABOLIC PANEL ([id number]) 2023-02-23 Chris Brown Un iversity of 10:05:[address] [facility] [place] MAGNESIUM 2023-02-23 Movva, Chris University of 10:05:[address] [facility] COMP. METABOLIC PANEL ([id number]) 2023-02-23 Chris Brown Un iversity of 10:05:[address] [facility] [place] CBC WITH DIFF 2023-02-23 Movva, Chris [place] of 10:05:[address] [facility] [place] MAGNESIUM 2023-02-23 Movva, Chris University of 10:05:[address] [facility] COMP. METABOLIC PANEL ([id number]) 2023-02-23 Chris Brown Un iversity of 10:05:[address] [facility] [place] CBC WITH DIFF 2023-02-23 Movva, Chris University of 10:05:[address] [facility] [place] MAGNESIUM 2023-02-22 Merle Jaramillo of 09:50:00 [facility] CBC WITH DIFF 2023-02-22 Merle Jaramillo of 09:50:00 [facility] COMP. METABOLIC PANEL ([id number]) 2023-02-22 Merle Jaramillo Un iversity of 09:50:00 [facility] BILI UNCONJUGATED/BILI CONJUG 2023-02-22 Merle Jaramillo Un iversity of 09:50:00 [facility] MAGNESIUM 2023-02-22 Merle Jaramillo of 09:50:00 [facility] BILI UNCONJUGATED/BILI CONJUG 2023-02-22 Merle Jaramillo Un iversity of 09:50:00 [facility] COMP. METABOLIC PANEL ([id number]) 2023-02-22 Merle Jaramillo Un iversity of 09:50:00 [facility] CBC WITH DIFF 2023-02-22 [facility] 09:50:00 [facility] MAGNESIUM 2023-02-22 [facility] of 09:50:00 [facility] BILI UNCONJUGATED/BILI CONJUG 2023-02-22 Melre Jaramillo Un iversity of 09:50:00 [facility] COMP. METABOLIC PANEL ([id number]) 2023-02-22 Merle Jaramillo Un iversity of 09:50:00 [facility] CBC WITH DIFF 2023-02-22 [facility] 09:50:00 [facility] XR CHEST 1 VW 2023-02-22 Jose, [facility] of 01:05:[address] [facility] [place] XR CHEST 1 VW 2023-02-22 [facility] of 01:05:[address] [facility] XR CHEST 1 VW 2023-02-22 [facility] of 01:05:[address] [facility] ASPIRATE OR ABSCESS 2023-02-21 [facility] o f CULTURE(AEROBIC/ANAEROBIC) 19:22:[address] [facility] ASPIRATE OR ABSCESS 2023-02-21 [facility] o f CULTURE(AEROBIC/ANAEROBIC) 19:22:[address] [facility] ASPIRATE OR ABSCESS 2023-02-21 [facility] o f CULTURE(AEROBIC/ANAEROBIC) 19:22:[address] [facility] BLOOD CULTURE SCREEN 2023-02-21 [facility] 18:16:00 [facility] BLOOD CULTURE SCREEN 2023-02-21 Marin Long [facility] of 18:16:00 [facility] BLOOD CULTURE SCREEN 2023-02-21 [facility] 18:16:00 [facility] BLOOD CULTURE SCREEN 2023-02-21 [facility] 18:04:00 [facility] BLOOD CULTURE SCREEN 2023-02-21 Mercedes [facility] of 18:04:00 [facility] BLOOD CULTURE SCREEN 2023-02-21 Everpresleysurya [facility] of 18:04:00 [facility] MAGNESIUM 2023-02-21 Kevin [facility] of 09:28:[address] [facility] [place] CBC WITH DIFF 2023-02-21 [facility] [facility] BASIC METABOLIC PANEL (NA, K, 2023-02-21 Kevin, Chris Un iversity of CL, CO2, GLUCOSE, BUN, 09:28:00 [place] [facility] CREATININE, [place]) Branch HEPATIC FUNCTION PANEL ([id number]) 2023-02-21 Chris Brown U niversity of (ALB,T.PRO,BILI 09:28:00 [facility] T,BU/BC,ALT,AST,ALK PHOS) Branch TROPONIN I 2023-02-21 Rock Garcia [facility] of 09:28:[address] [facility] [place] MAGNESIUM 2023-02-21 Kevin [facility] of 09:28:[address] [facility] [place] TROPONIN I 2023-02-21 Jose [facility] of 09:28:[address] [facility] [place] HEPATIC FUNCTION PANEL ([id number]) 2023-02-21 Chris Brown U niversity of (ALB,T.PRO,BILI 09:28:00 [facility] T,BU/BC,ALT,AST,ALK PHOS) Branch BASIC METABOLIC PANEL (NA, K, 2023-02-21 Chris Brown Un iversity of CL, CO2, GLUCOSE, BUN, 09:28:00 [place] [facility] CREATININE, CA) Branch CBC WITH DIFF 2023-02-21 Chris Brown [place] of 09:28:[address] [facility] [place] MAGNESIUM 2023-02-21 Kevin [facility] of 09:28:[address] [facility] [place] TROPONIN I 2023-02-21 Jose [facility] of 09:28:[address] [facility] [place] HEPATIC FUNCTION PANEL ([id number]) 2023-02-21 Chris Brown U niversity of (ALB,T.PRO,BILI 09:28:00 [facility] T,BU/BC,ALT,AST,ALK PHOS) Branch BASIC METABOLIC PANEL (NA, K, 2023-02-21 Movva, Chris Un iversity of CL, CO2, GLUCOSE, BUN, 09:28:00 [place] [facility] CREATININE, CA) Branch CBC WITH DIFF 2023-02-21 Movmelinda Chris University of 09:28:[address] [facility] [place] [place] MAGNESIUM 2023-02-20 Movva, Chris University of 07:18:[address] [facility] [place] [place] CBC WITH DIFF 2023-02-20 Movva, Chris University of 07:18:[address] [facility] [place] BASIC METABOLIC PANEL (NA, K, 2023-02-20 Movva, Chris Un iversity of CL, CO2, GLUCOSE, BUN, 07:18:00 [place] [facility] CREATININE, CA) Branch HEPATIC FUNCTION PANEL ([id number]) 2023-02-20 Movva, Chris U niversity of (ALB,T.PRO,BILI 07:18:00 [facility] T,BU/BC,ALT,AST,ALK PHOS) Branch MAGNESIUM 2023-02-20 Movmelinda, Chris University of 07:18:[address] [facility] [place] HEPATIC FUNCTION PANEL ([id number]) 2023-02-20 Movva Chris U niversity of (ALB,T.PRO,BILI 07:18:00 [facility] T,BU/BC,ALT,AST,ALK PHOS) Branch BASIC METABOLIC PANEL (NA, K, 2023-02-20 Movva Chris Un iversity of CL, CO2, GLUCOSE, BUN, 07:18:00 [place] [facility] CREATININE, CA) Branch CBC WITH DIFF 2023-02-20 MovCelestino lawrencei University of 07:18:[address] [facility] [place] MAGNESIUM 2023-02-20 Movva, [facility] of 07:18:[address] [facility] [place] HEPATIC FUNCTION PANEL ([id number]) 2023-02-20 Movva, Chris U niversity of (ALB,T.PRO,BILI 07:18:00 [facility] T,BU/BC,ALT,AST,ALK PHOS) Branch BASIC METABOLIC PANEL (NA, K, 2023-02-20 Movva, Chris Un iversity of CL, CO2, GLUCOSE, BUN, 07:18:00 [place] [facility] CREATININE, CA) Branch CBC WITH DIFF 2023-02-20 Movva, Chris University of 07:18:[address] [facility] [place] [place] ABORH CONFIRMATION (LAB ONLY) 2023-02-19 Ally Hdz Un iversity of 22:51:00 [facility] ABORH CONFIRMATION (LAB ONLY) 2023-02-19 Ally Hdz Un iversity of 22:51:00 [facility] ABORH CONFIRMATION (LAB ONLY) 2023-02-19 Ally Hdz Un iversity of 22:51:00 [facility] PROTHROMBIN TIME / INR 2023-02-19 Movva, Chris Universit y of 21:18:[address] [facility] [place] PROTHROMBIN TIME / INR 2023-02-19 Movva, Chris Universit y of 21:18:[address] [facility] [place] PROTHROMBIN TIME / INR 2023-02-19 Movva, Chris Universit y of 21:18:[address] [facility] [place] [place] ABDOMEN PELVIS W WO CONTRAST 2023-02-19 Movva, Chris University of 19:34:[address] [facility] [place] CT ABDOMEN PELVIS W WO CONTRAST 2023-02-19 Movva, [facility] of 19:34:[address] [facility] [place] CT ABDOMEN PELVIS W WO CONTRAST 2023-02-19 Movva, Chris University of 19:34:[address] [facility] [place] MYCOBACTERIUM TUBERCULOSIS 2023-02-19 Abdiaziz, Unive rsity of COMPLEX PCR 14:55:00 [facility] [employer] CULTURE 2023-02-19 [facility] 14:55:00 [facility] SPUTUM CULTURE 2023-02-19 [facility] 14:55:00 [facility] MYCOBACTERIUM TUBERCULOSIS 2023-02-19 Abdiaziz, Unive rsity of COMPLEX PCR 14:55:00 [facility] [employer] CULTURE 2023-02-19 [facility] 14:55:00 [facility] SPUTUM CULTURE 2023-02-19 Marin Long [facility] of 14:55:00 [facility] MYCOBACTERIUM TUBERCULOSIS 2023-02-19 Abdiaziz, Unive rsity of COMPLEX PCR 14:55:00 [facility] [employer] CULTURE 2023-02-19 BhavanaFormerly [facility] 14:55:00 [facility] SPUTUM CULTURE 2023-02-19 Marin Long [facility] of 14:55:00 [facility] URINALYSIS 2023-02-19 Ynalvesurya, [place] [facility] of 12:32:00 [facility] URINE CULTURE 2023-02-19 Ynalvez, [place] [facility] of 12:32:00 [facility] URINALYSIS 2023-02-19 Ynalvez, Marin [facility] of 12:32:00 [facility] URINE CULTURE 2023-02-19 Ynalvez, Marin [facility] of 12:32:00 [facility] URINALYSIS 2023-02-19 [facility]nalvez, [facility] 12:32:00 [facility] URINE CULTURE 2023-02-19 Ynalvez, Marin [facility] of 12:32:00 [facility] BLOOD CULTURE SCREEN 2023-02-19 Ynalvesurya, Marin [facility] of 10:25:00 [facility] HB ABO GROUPING 2023-02-19 Mercedes, Marin Fall of 10:25:00 [facility] BLOOD CULTURE WORKUP 2023-02-19 Ynalvesurya, Marin [facility] of 10:25:00 [facility] GRAM NEGATIVE BLOOD PATHOGENS 2023-02-19 Marin Long Un iversity of DNA PROBE-ANAEROBIC 10:25:00 [facility] BLOOD CULTURE SCREEN 2023-02-19 Marin Long University of 10:25:00 [facility] HB ABO GROUPING 2023-02-19 Marin Long of 10:25:00 [facility] BLOOD CULTURE WORKUP 2023-02-19 Yraymond, Marin [place] of 10:25:00 [facility] GRAM NEGATIVE BLOOD PATHOGENS 2023-02-19 Marin Long Un iversity of DNA PROBE-ANAEROBIC 10:25:00 [facility] BLOOD CULTURE SCREEN 2023-02-19 Mercedes, Marin University of 10:25:00 [facility] HB ABO GROUPING 2023-02-19 Ynalarnulfo, Marin University of 10:25:00 [facility] BLOOD CULTURE WORKUP 2023-02-19 Ynalvesurya, [place] [facility] of 10:25:00 [facility] BLOOD CULTURE SCREEN 2023-02-19 Marin Long of 10:14:00 [facility] MAGNESIUM 2023-02-19 Kevin, Chris University of 10:14:[address] [facility] [place] HEPATIC FUNCTION PANEL ([id number]) 2023-02-19 Maxxva, Chris U niversity of (ALB,T.PRO,BILI 10:14:00 [facility] T,BU/BC,ALT,AST,ALK PHOS) Branch BASIC METABOLIC PANEL (NA, K, 2023-02-19 Maxxva, Chris Un iversity of CL, CO2, GLUCOSE, BUN, 10:14:00 [place] [facility] CREATININE, CA) Branch BLOOD CULTURE WORKUP 2023-02-19 Marin Long of 10:14:00 [facility] GRAM POSITIVE BLOOD PATHOGENS 2023-02-19 Marin Long Un iversity of DNA PROBE-ANAEROBIC 10:14:00 [facility] BLOOD CULTURE SCREEN 2023-02-19 Marin Long of 10:14:00 [facility] MAGNESIUM 2023-02-19 Kevin, Chris Rincon of 10:14:[address] [facility] [place] HEPATIC FUNCTION PANEL ([id number]) 2023-02-19 Chris Brown U niversity of (ALB,T.PRO,BILI 10:14:00 [facility] T,BU/BC,ALT,AST,ALK PHOS) Branch BASIC METABOLIC PANEL (NA, K, 2023-02-19 Chris Brown Un iversity of CL, CO2, GLUCOSE, BUN, 10:14:00 [place] [facility] CREATININE, CA) Branch BLOOD CULTURE WORKUP 2023-02-19 Marin Long of 10:14:00 [facility] GRAM POSITIVE BLOOD PATHOGENS 2023-02-19 Marin Long Un iversity of DNA PROBE-ANAEROBIC 10:14:00 [facility] BLOOD CULTURE SCREEN 2023-02-19 Marin Long of 10:14:00 [facility] MAGNESIUM 2023-02-19 Kevin, Chris University of 10:14:[address] [facility] [place] BASIC METABOLIC PANEL (NA, K, 2023-02-19 Movva, Chris Un iversity of CL, CO2, GLUCOSE, BUN, 10:14:00 [facility] ical CREATININE, CA) Branch HEPATIC FUNCTION PANEL ([id number]) 2023-02-19 Kevin Chris U niversity of (ALB,T.PRO,BILI 10:14:00 [facility] T,BU/BC,ALT,AST,ALK PHOS) Branch BLOOD CULTURE WORKUP 2023-02-19 [facility] 10:14:00 [facility] GRAM POSITIVE BLOOD PATHOGENS 2023-02-19 Marin Long Un iversity of DNA PROBE-ANAEROBIC 10:14:00 [facility] ABDOMEN LIMITED 2023-02-18 Abdiaziz, [facility] 19:08:42 University [facility] ABDOMEN LIMITED 2023-02-18 Abdiaizz, [facility] 19:08[facility]42 [facility] A[facility] 2023-02-18 Abdiaziz, [facility] 19:08:42 [facility] LIPASE 2023-02-18 Abdiaziz, [facility] 18:00:00 [facility] HEPATIC FUNCTION PANEL ([id number]) 2023-02-18 Abdiaziz, U niversity of (ALB,T.PRO,BILI 18:00:00 [facility],BU/BC,ALT,AST,ALK PHOS) Branch BASIC METABOLIC PANEL (NA, K, 2023-02-18 Abdiaziz, Un iversity of CL, CO2, GLUCOSE, BUN, 18:00:00 [facility] CREATININE, CA) Branch CBC WITH DIFF 2023-02-18 Abdiaziz, [facility] 18:00:00 [facility] LIPASE 2023-02-18 Abdiaziz, [facility] 18:00:00 [facility] HEPATIC FUNCTION PANEL ([id number]) 2023-02-18 Abdiaziz, U niversity of (ALB,T.PRO,BILI 18:00:00 [facility] T,BU/BC,ALT,AST,ALK PHOS) Branch BASIC METABOLIC PANEL (NA, K, 2023-02-18 Rellgeniesha, Un iversity of CL, CO2, GLUCOSE, BUN, 18:00:00 [facility] ical CREATININE, CA) Branch CBC WITH DIFF 2023-02-18 [facility], [facility] 18:00:00 [facility] CBC WITH DIFF 2023-02-18 [facility] 18:00:00 [facility] BASIC METABOLIC PANEL (NA, K, 2023-02-18 Rellun[facility] for medical sciencesiesha, Un iversity of CL, CO2, GLUCOSE, BUN, 18:00:00 [facility] ica CREATININE, CA) Branch HEPATIC FUNCTION PANEL ([id number]) 2023-02-18 Abdiaziz, U niversity of (ALB,T.PRO,BILI 18:00:00 [facility] T,BU/BC,ALT,AST,ALK PHOS) Branch LIPASE 2023-02-18 [facility] 18:00:00 [facility] CONSENT/REFUSAL FOR DIAGNOSIS 2023-02-18 Doctor Unassigned, [facility] AND TREATMENT 16:49:[address] [place] [facility] [place] CONSENT/REFUSAL FOR DIAGNOSIS 2023-02-18 Doctor Unassigned, [facility] AND TREATMENT 16:49:[address] [facility] [place] CONSENT/REFUSAL FOR DIAGNOSIS 2023-02-18 Doctor Unassigned, [facility] AND TREATMENT 16:49:[address] [facility] [place] PHOSPHORUS 2022-11-30 Fausto [facility] of 09:43:00 [facility] MAGNESIUM 2022-11-30 [facility] 09:43:00 [facility] HEPATIC FUNCTION PANEL ([id number]) 2022-11-30 Fausto [place] U niversity of (ALB,T.PRO,BILI 09:43:00 [facility] T,BU/BC,ALT,AST,ALK PHOS) [place] BASIC METABOLIC PANEL (NA, K, 2022-11-30 Fausto [place] Un iversity of CL, CO2, GLUCOSE, BUN, 09:43:00 [facility] CREATININE, CA) Branch CBC WITH DIFF 2022-11-30 [facility] 09:43:00 [facility] HEPATIC FUNCTION PANEL ([id number]) 2022-11-30 Fausto [place] U niversity of (ALB,T.PRO,BILI 09:43:00 [facility] T,BU/BC,ALT,AST,ALK PHOS) Branch CBC WITH DIFF 2022-11-30 Fausto, [facility] of 09:43:00 [facility] BASIC METABOLIC PANEL (NA, K, 2022-11-30 [facility], [place] Un iversity of CL, CO2, GLUCOSE, BUN, 09:43:00 [facility] ical CREATININE, CA) Branch MAGNESIUM 2022-11-30 Fausto, [facility] of 09:43:00 [facility] PHOSPHORUS 2022-11-30 Fausto, [facility] of 09:43:00 [facility] CT ABDOMEN PELVIS W CONTRAST 2022-11-30 [facility] Uni versity of 01:05:00 [facility] CT ABDOMEN PELVIS W CONTRAST 2022-11-30 [facility], [place] Uni versity of 01:05:00 [facility] COMP. METABOLIC PANEL ([id number]) 2022-11-29 Deniz Cervantes U niversity of 22:03:[address] [facility] [place] CBC WITH DIFF 2022-11-29 Deniz Cervantes Rincon of 22:03:[address] [facility] [place] COMP. METABOLIC PANEL ([id number]) 2022-11-29 Deniz Cervantes U niversity of 22:03:[address] [facility] [place] CBC WITH DIFF 2022-11-29 Deniz Cervantes R[place] of 22:03:[address] [facility] [place] CONSENT/REFUSAL FOR DIAGNOSIS 2022-11-29 Doctor Brown, [facility] AND TREATMENT 18:02:[address] [facility] [place] CONSENT/REFUSAL FOR DIAGNOSIS 2022-11-29 Doctor Stephanie, [facility] AND TREATMENT 18:02:[address] [facility] [place] HOSPITAL ADMISSION 2022-11-29 Doctor Brown, [facility] 05:01:[address] [facility] [place] AUTHORIZATION FOR RELEASE OF PHI 2022-10-22 Doctor Angy ed, [facility] 06:01:[address] [facility] [place] EMERGENCY DEPARTMENT DOCUMENTS 2022-09-25 Doctor Brown , [facility] 06:01:[address] [facility] [place] EXTERNAL PROVIDER RECORDS 2022-08-17 Doctor Stephanie, Uni versity of 06:01:[address] [facility] [place] MAGNESIUM 2022-08-07 [place], [facility] of 11:15:00 [facility] BASIC METABOLIC PANEL (NA, K, 2022-08-07 [place], Sirisha Un iversity of CL, CO2, GLUCOSE, BUN, 11:15:00 [place] [place] [facility] CREATININE, CA) Branch CBC WITH DIFF 2022-08-07 [place], [facility] of 11:15:00 [facility] BASIC METABOLIC PANEL (NA, K, 2022-08-07 [place], Sirisha Un iversity of CL, CO2, GLUCOSE, BUN, 11:15:00 [facility] [place] [facility] CREATININE, CA) Branch MAGNESIUM 2022-08-07 [place], [facility] of 11:15:00 [facility] CBC WITH DIFF 2022-08-07 [place], [facility] of 11:15:00 [facility] MAGNESIUM 2022-08-06 [place], [facility] of 10:09:00 [facility] BASIC METABOLIC PANEL (NA, K, 2022-08-06 [place], Sirisha Un iversity of CL, CO2, GLUCOSE, BUN, 10:09:00 [place] [place] [facility] CREATININE, CA) Branch CBC WITH DIFF 2022-08-06 [place], [facility] of 10:09:00 [facility] BASIC METABOLIC PANEL (NA, K, 2022-08-06 [place], Sirisha Un iversity of CL, CO2, GLUCOSE, BUN, 10:09:00 [facility] [place] [facility] CREATININE, CA) Branch MAGNESIUM 2022-08-06 [place], [facility] of 10:09:00 [facility] CBC WITH DIFF 2022-08-06 [place], [facility] of 10:09:00 [facility] BASIC METABOLIC PANEL (NA, K, 2022-08-05 Nicholas Charles Un iversity of CL, CO2, GLUCOSE, BUN, 23:19:00 [place] [facility] CREATININE, CA) Branch PROTHROMBIN TIME / INR 2022-08-05 Nicholas Charles y of 23:19:[address] [facility] [place] [place] BASIC METABOLIC PANEL (NA, K, 2022-08-05 Nicholas Charles Un iversity of CL, CO2, GLUCOSE, BUN, 23:19:00 [place] [facility] CREATININE, CA) Branch PROTHROMBIN TIME / INR 2022-08-05 Nicholas Charles y of 23:19:00 [place] [facility] [place] MAGNESIUM 2022-08-05 [place], [facility] of 10:38:00 [facility] [place] [facility] BASIC METABOLIC PANEL (NA, K, 2022-08-05 [place], Sirisha Un iversity of CL, CO2, GLUCOSE, BUN, 10:38:00 [facility] [place] [facility] CREATININE, CA) Branch CBC WITH DIFF 2022-08-05 [place], [facility] of 10:38:00 [facility] BASIC METABOLIC PANEL (NA, K, 2022-08-05 [place], Sirisha Un iversity of CL, CO2, GLUCOSE, BUN, 10:38:00 [facility] [place] [facility] CREATININE, CA) Branch MAGNESIUM 2022-08-05 [place], [facility] of 10:38:00 [facility] Medical [place] CBC WITH DIFF 2022-08-05 [place], [facility] of 10:38:00 [facility] CBC WITHOUT DIFF 2022-08-04 [place], [facility] 11:25:00 [facility] Medical Branch CBC WITHOUT DIFF 2022-08-04 [place], [facility] 11:25:00 [facility] Medical Branch MAGNESIUM 2022-08-03 [place], [facility] of 10:07:00 [facility] BASIC METABOLIC PANEL (NA, K, 2022-08-03 [place], Sirisha Un iversity of CL, CO2, GLUCOSE, BUN, 10:07:00 [place] [place] [facility] CREATININE, CA) Branch CBC WITHOUT DIFF 2022-08-03 [place], [facility] of 10:07:00 [facility] BASIC METABOLIC PANEL (NA, K, 2022-08-03 [place], Sirisha Un iversity of CL, CO2, GLUCOSE, BUN, 10:07:00 [facility] [place] [facility] CREATININE, CA) Branch CBC WITHOUT DIFF 2022-08-03 [place], [facility] of 10:07:00 [place] [facility] [place] MAGNESIUM 2022-08-03 [place], [facility] of 10:07:00 [facility] Medical [place] MAGNESIUM 2022-08-02 [place], [facility] of 10:39:00 [facility] BASIC METABOLIC PANEL (NA, K, 2022-08-02 [place], Sirisha Un iversity of CL, CO2, GLUCOSE, BUN, 10:39:00 [facility] [place] [facility] CREATININE, CA) Branch CBC WITHOUT DIFF 2022-08-02 [place], [facility] of 10:39:00 [facility] [place] [facility] BASIC METABOLIC PANEL (NA, K, 2022-08-02 [place], Sirisha Un iversity of CL, CO2, GLUCOSE, BUN, 10:39:00 [facility] [place] [facility] CREATININE, CA) Branch CBC WITHOUT DIFF 2022-08-02 [place], Sirisha Rincon of 10:39:00 [facility] [place] [facility] MAGNESIUM 2022-08-02 [place], [facility] of 10:39:00 [facility] [place] [facility] MAGNESIUM 2022-08-01 [place], [facility]:25[facility]00 [facility] BASIC METABOLIC PANEL (NA, K, 2022-08-01 [place], Sirisha Un iversity of CL, CO2, GLUCOSE, BUN, 11:25:00 [place] [place] [facility] CREATININE, CA) Branch CBC WITH DIFF 2022-08-01 [place], [facility] of 11:25:00 [facility] BASIC METABOLIC PANEL (NA, K, 2022-08-01 [place], Sirisha Un iversity of CL, CO2, GLUCOSE, BUN, 11:25:00 [place] [place] [facility] CREATININE, CA) Branch MAGNESIUM 2022-08-01 [place], [facility] of 11:25:00 [facility] Medical Branch CBC WITH DIFF 2022-08-01 [place], [facility] of 11:25:00 [facility] Medical Branch CBC WITH DIFF 2022-07-31 [place], Sirisha Rincon of 17:46:00 [facility] Medical [place] CBC WITH DIFF 2022-07-31 [place], [facility] of 17:46:00 [facility] HEPATITIS C VIRUS (HCV) BY 2022-07-31 [place], Sirisha Unive rsity of QUANTITATIVE NAAT 17:42:00 [facility] HEPATITIS B VIRUS (HBV) BY 2022-07-31 [place], Sirisha Unive rsity of QUANTITATIVE NAAT 17:42:00 [facility] HEPATITIS B VIRUS (HBV) BY 2022-07-31 [place], Sirisha Unive rsity of QUANTITATIVE NAAT 17:42:00 [facility] HEPATITIS C VIRUS (HCV) BY 2022-07-31 [place], Sirisha Unive rsity of QUANTITATIVE NAAT 17:42:00 [facility] [place] [facility] MAGNESIUM 2022-07-31 [place], [facility] of 10:31:00 [facility] BASIC METABOLIC PANEL (NA, K, 2022-07-31 [place], Sirisha Un iversity of CL, CO2, GLUCOSE, BUN, 10:31:00 [facility] CREATININE, [place]) Branch CBC WITHOUT DIFF 2022-07-31 [place], [facility] of 10:31:00 [facility] HIV 1/2 AG-AB WITH REFLEX 2022-07-31 [place], [facility] sity of 10:31:00 [facility] BASIC METABOLIC PANEL (NA, K, 2022-07-31 [place], Sirsiha Un iversity of CL, CO2, GLUCOSE, BUN, 10:31:00 [facility] CREATININE, [place]) Branch CBC WITHOUT DIFF 2022-07-31 [place], [facility] of 10:31:00 [facility] MAGNESIUM 2022-07-31 [place], [facility] of 10:31:00 [facility] HIV 1/2 AG-AB WITH REFLEX 2022-07-31 [place], [facility] sit of 10:31:00 [facility] XR CHEST 1 VW 2022-07-30 [place] [facility] of 12:39:[address] [facility] XR CHEST 1 VW 2022-07-30 [place] [facility] of 12:39:[address] [facility] [place] URINALYSIS 2022-07-30 [place], [facility] of 12:30:[address] [facility] [place] URINALYSIS 2022-07-30 [place] [facility] of 12:30:[address] [facility] [place] URINE CULTURE 2022-07-30 [place] [facility] of 12:30:[address] [facility] [place] URINE CULTURE 2022-07-30 [place] [facility] of 12:30:[address] [facility] [place] CBC WITH DIFF 2022-07-30 [place], [facility] of 12:27:[address] [facility] [place] BASIC METABOLIC PANEL (NA, K, 2022-07-30 [place], Sirisha Un iversity of CL, CO2, GLUCOSE, BUN, 12:27:00 [facility] CREATININE, [place]) Branch BASIC METABOLIC PANEL (NA, K, 2022-07-30 [place], Sirisha Un iversity of CL, CO2, GLUCOSE, BUN, 12:27:00 [facility] Med ical CREATININE, CA) Branch CBC WITH DIFF 2022-07-30 Branden Tim of 12:27:[address] [facility] [place] LACTIC ACID WHOLE BLOOD 2022-07-30 [place] [facility] ty of 12:22:[address] [facility] [place] LACTIC ACID WHOLE BLOOD 2022-07-30 [place], [facility] ty of 12:22:[address] [facility] [place] BLOOD CULTURE SCREEN 2022-07-30 [place], [facility] of 12:20:00 [facility] BLOOD CULTURE SCREEN 2022-07-30 [place], [facility] of 12:20:00 [facility] BLOOD CULTURE WORKUP 2022-07-30 [place], [facility] of 12:20:00 [facility] BLOOD CULTURE WORKUP 2022-07-30 [place], [facility] of 12:20:00 [facility] GRAM NEGATIVE BLOOD PATHOGENS 2022-07-30 [place], Sirisha Hu iversity of DNA PROBE-ANAEROBIC 12:20:00 [facility] BLOOD CULTURE WORKUP 2022-07-30 [place], [facility] of 12:20:00 [facility] BLOOD CULTURE WORKUP 2022-07-30 [place], [facility] of 12:20:00 [facility] GRAM NEGATIVE BLOOD PATHOGENS 2022-07-30 [place], Sirisha Hu iversity of DNA PROBE-ANAEROBIC 12:20:00 [facility] HB ECG ROUTINE & RHYTHM STRIP 2022-07-30 Bradnen Tim iversity of 12:10:[address] [facility] HB ECG ROUTINE & RHYTHM STRIP 2022-07-30 Branden Tim iversity of 12:10:[address] [facility] [place] BASIC METABOLIC PANEL (NA, K, 2022-07-29 [place], Sirisha Hu iversity of CL, CO2, GLUCOSE, BUN, 11:07:00 [facility] CREATININE, [place]) Branch MAGNESIUM 2022-07-29 [place], [facility] of 11:07:00 [facility] CBC WITH DIFF 2022-07-29 Nicholas Charles of 11:07:[address] [facility] HEPATIC FUNCTION PANEL ([id number]) 2022-07-29 Araceli, Nicholas U niversity of (ALB,T.PRO,BILI 11:07:00 [place] [facility] T,BU/BC,ALT,AST,ALK PHOS) Branch MAGNESIUM 2022-07-29 Gin [facility] of 11:07:[address] [facility] [place] [place] HEPATIC FUNCTION PANEL ([id number]) 2022-07-29 Nicholas Charles niversity of (ALB,T.PRO,BILI 11:07:00 [place] [facility] T,BU/BC,ALT,AST,ALK PHOS) Branch BASIC METABOLIC PANEL (NA, K, 2022-07-29 [place], Sirisha Un iversity of CL, CO2, GLUCOSE, BUN, 11:07:00 [place] [facility] CREATININE, CA) Branch CBC WITH DIFF 2022-07-29 Nicholas Charles of 11:07:[address] [facility] [place] [place] HB ECG ROUTINE & RHYTHM STRIP 2022-07-29 Branden Tim Un iversity of 01:45:[address] [facility] [place] HB ECG ROUTINE & RHYTHM STRIP 2022-07-29 Branden Tim Un iversity of 01:45:[address] [facility] [place] IR PLACEMENT ACCESS THRU BILIARY 2022-07-28 [facility] PERCUTANEOUS NEW ACCESS 22:28:42 [place] as Medical Branch IR PLACEMENT ACCESS THRU BILIARY 2022-07-28 [facility] PERCUTANEOUS NEW ACCESS 22:28:42 [place] [facility] IR DRAINAGE BY CATHETER 2022-07-28 [facility] ty of PERITONEAL OR RETROPERITONEAL 18:30:00 [facility] IR DRAINAGE BY CATHETER 2022-07-28 [facility] ty of PERITONEAL OR RETROPERITONEAL 18:30:00 Te [facility] BODY FLUID 2022-07-28 [facility] of CULTURE(AEROBIC/ANAEROBIC) 18:14:[address] [facility] [place] [place] BODY FLUID 2022-07-28 [facility] of CULTURE(AEROBIC/ANAEROBIC) 18:14:[address] [facility] [place] [place] BASIC METABOLIC PANEL (NA, K, 2022-07-28 [place], Sirisha Un iversity of CL, CO2, GLUCOSE, BUN, 11:35:00 [place] [facility] CREATININE, CA) Branch CBC WITHOUT DIFF 2022-07-28 [place], [facility] of 11:35:00 [facility] MAGNESIUM 2022-07-28 [place], [facility] of 11:35:00 [facility] MAGNESIUM 2022-07-28 [place], [facility] of 11:35:00 [facility] BASIC METABOLIC PANEL (NA, K, 2022-07-28 [place], Sirisha Hu iversity of CL, CO2, GLUCOSE, BUN, 11:35:00 [place] [place] [facility] CREATININE, CA) Branch CBC WITHOUT DIFF 2022-07-28 [place], [facility] of 11:35:00 [facility] MR ABDOMEN W WO CONTRAST MRCP 2022-07-28 Melvin Anguiano Un iversity of 04:29:[address] [facility] [place] MR ABDOMEN W WO CONTRAST MRCP 2022-07-28 Melvin Anguiano Un iversity of 04:29:[address] [facility] [place] [place] IR EXCHANGE OF BILIARY DRAINAGE 2022-07-28 [place], [facility] of CATHETER 00:36:00 [facility] IR EXCHANGE OF BILIARY DRAINAGE 2022-07-28 [place], [facility] of CATHETER 00:36:00 [facility] XR KUB 2022-07-27 [facility] of 21:30:[address] [facility] [place] [place] XR KUB 2022-07-27 [facility], [facility] of 21:30:[address] [facility] [place] CBC WITHOUT DIFF 2022-07-27 Branden Tim Rincon of 18:10:[address] [facility] [place] [place] BASIC METABOLIC PANEL (NA, K, 2022-07-27 [place], Sirisha Hu iversity of CL, CO2, GLUCOSE, BUN, 18:10:00 [facility] Med ical CREATININE, [place]) Branch PROTHROMBIN TIME / INR 2022-07-27 [place], [facility] y of 18:10:00 [facility] BASIC METABOLIC PANEL (NA, K, 2022-07-27 [place], Sirisha Un iversity of CL, CO2, GLUCOSE, BUN, 18:10:00 [facility] Med ical CREATININE, [place]) Branch CBC WITHOUT DIFF 2022-07-27 Branden Tim [place] of 18:10:[address] [facility] [place] [place] PROTHROMBIN TIME / INR 2022-07-27 [place], [facility] y of 18:10:00 [facility] HB ECG ROUTINE & RHYTHM STRIP 2022-07-27 Gin, Sirisha Un iversity of 15:50:[address] [facility] [place] [place] HB ECG ROUTINE & RHYTHM STRIP 2022-07-27 [place], Sirisha Un iversity of 15:50:09 [facility] CT ABDOMEN PELVIS W CONTRAST 2022-07-27 Araceli, Nicholas Uni versity of 14:49:[address] [facility] [place] [place] ABDOMEN PELVIS W CONTRAST 2022-07-27 Araceli, Nicholas Uni versity of 14:49:[address] [facility] [place] [place] CBC WITH DIFF 2022-07-27 Araceli, Nicholas Rincon of 08:05:[address] [facility] [place] [place] BASIC METABOLIC PANEL (NA, K, 2022-07-27 Araceli, Nicholas Un iversity of CL, CO2, GLUCOSE, BUN, 08:05:00 [place] [facility] CREATININE, [place]) Branch MAGNESIUM 2022-07-27 Araceli, Nicholas R[place]con of 08:05:[address] [facility] [place] LIPID PANEL ([id number])(TOTAL 2022-07-27 Araceli, Nicholas [facility] Fall[place] sitmitchel of CHOLESTEROL, TRIGLYCERIDES, HDL) 08:05:[address] [facility] [place] [place] LIPASE 2022-07-27 [place], [facility] of 08:05:00 [facility] LIPASE 2022-07-27 [place], [facility] of 08:05:00 [facility] MAGNESIUM 2022-07-27 Araceli, Nicholas Rincon of 08:05:[address] [facility] [place] [place] BASIC METABOLIC PANEL (NA, K, 2022-07-27 Araceli, Nicholas Hu iversity of CL, CO2, GLUCOSE, BUN, 08:05:00 [place] [facility] CREATININE, CA) Branch LIPID PANEL ([id number])(TOTAL 2022-07-27 Araceli, Nicholas [facility] sit of CHOLESTEROL, TRIGLYCERIDES, HDL) 08:05:[address] [facility] [place] [place] CBC WITH DIFF 2022-07-27 Araceli, Nicholas Rincon of 08:05:[address] [facility] [place] US ABDOMEN LIMITED 2022-07-27 Araceli, Nicholas R[place]con of 03:31:[address] [facility] [place] [place] US ABDOMEN LIMITED 2022-07-27 Araceli, Nicholas Rincon of 03:31:[address] [facility] [place] CBC WITH DIFF 2022-07-26 Araceli, Nicholas Rincon of 22:23:[address] [facility] [place] [place] BASIC METABOLIC PANEL (NA, K, 2022-07-26 Nicholas Charles Un iversity of CL, CO2, GLUCOSE, BUN, 22:23:00 [place] [facility] CREATININE, [place]) Branch HEPATIC FUNCTION PANEL ([id number]) 2022-07-26 Nicholas Charles niversity of (ALB,T.PRO,BILI 22:23:00 [place] [facility] T,BU/BC,ALT,AST,ALK PHOS) Branch PHOSPHORUS 2022-07-26 Araceli, Nicholas [place] of 22:23:[address] [facility] [place] PROTHROMBIN TIME / INR 2022-07-26 Araceli, Nicholas [facility] y of 22:23:[address] [facility] [place] [place] ACTIVATED PARTIAL THRMPLAS CHARLES 2022-07-26 Araceli, Nicholas [place]vez niversity of 22:23:[address] [facility] [place] [place] C-REACTIVE PROTEIN 2022-07-26 Araceli, Nicholas Rincon of 22:23:[address] [facility] [place] PHOSPHORUS 2022-07-26 Araceli, Nicholas Rincon of 22:23:[address] [facility] [place] C-REACTIVE PROTEIN 2022-07-26 Araceli, [facility] of 22:23:[address] [facility] [place] HEPATIC FUNCTION PANEL ([id number]) 2022-07-26 Nicholas Charles niversity of (ALB,T.PRO,BILI 22:23:00 [facility] T,BU/BC,ALT,AST,ALK PHOS) Branch BASIC METABOLIC PANEL (NA, K, 2022-07-26 Araceli, Nicholas Un iversity of CL, CO2, GLUCOSE, BUN, 22:23:00 [place] [facility] CREATININE, CA) Branch CBC WITH DIFF 2022-07-26 Nicholas Charles [facility] of 22:23:[address] [facility] [place] PROTHROMBIN TIME / INR 2022-07-26 Araceli, Nicholas [facility] y of 22:23:[address] [facility] [place] ACTIVATED PARTIAL THRMPLAS CHARLES 2022-07-26 Araceli, Nicholas Galvez niversity of 22:23:[address] [facility] [place] XR CHEST 1 VW 2022-07-26 Araceli, Nicholas [place] of 21:45:[address] [facility] [place] XR CHEST 1 VW 2022-07-26 Araceli, [facility] of 21:45:[address] [facility] [place] ABDOMEN PELVIS W CONTRAST 2022-07-10 Chris Zuniga Uni versity of 00:27:49 [place] CT ABDOMEN PELVIS W CONTRAST 2022-07-10 ZunigaChris Uni versity of 00:27:[address] [facility] [place] CBC WITH DIFF 2022-07-09 Casie Callejas R[facility] of 22:40:[address] [facility] [place] CBC WITH DIFF 2022-07-09 Casie Callejas [facility] of 22:40:[address] [facility] [place] LIPASE 2022-07-09 Britta [facility] of 22:32:[address] [facility] [place] COMP. METABOLIC PANEL ([id number]) 2022-07-09 Casie Callejas Un iversity of 22:32:00 [facility] Branch LIPASE 2022-07-09 Casie Callejas [place] of 22:32:[address] [facility] [place] COMP. METABOLIC PANEL ([id number]) 2022-07-09 Casie Callejas Un iversity of 22:32:[address] [facility] [place] EMERGENCY SERVICES AGREEMENTS 2022-07-09 Doctor Unassigned, University of AND AUTHORIZATIONS 05:01:[address] [facility] [place] CBC WITH DIFF 2022-06-27 Cherie Schmidt [place] of 09:50:[address] [facility] [place] BASIC METABOLIC PANEL (NA, K, 2022-06-27 Cherie Schmidt Un iversity of CL, CO2, GLUCOSE, BUN, 09:50:00 [place] [facility] CREATININE, CA) Branch MAGNESIUM 2022-06-[address] [facility] [place] [place] of 09:50:[address] [facility] [place] MAGNESIUM 2022-06-27 Brayan [facility] of 09:50:[address] [facility] [place] BASIC METABOLIC PANEL (NA, K, 2022-06-27 Cherie Schmidt Un iversity of CL, CO2, GLUCOSE, BUN, 09:50:00 [place] [facility] CREATININE, CA) Branch CBC WITH DIFF 2022-06-[address] [facility] [place] of 09:50:[address] [facility] [place] CHEST PULMONARY ANGIOGRAM 2022-06-26 Cherie Schmidt Uni versity of 15:22:[address] [facility] [place] CBC WITH DIFF 2022-06-[address] [facility] [place] of 11:30:[address] [facility] [place] BASIC METABOLIC PANEL (NA, K, 2022-06-26 Cherie Schmidt iversity of CL, CO2, GLUCOSE, BUN, 11:30:00 [place] [facility] CREATININE, CA) Branch MAGNESIUM 2022-06-26 Brayan [facility] of 11:30:[address] [facility] [place] D-DIMER 2022-06-26 [facility] of 11:30:[address] [facility] [place] TROPONIN I 2022-06-26 Iraj [facility] of 11:30:[address] [facility] [place] N-TERMINAL PRO-BNP 2022-06-26 Iraj [facility] of 11:30:[address] [facility] [place] MAGNESIUM 2022-06-26 Brayan [facility] of 11:30:[address] [facility] [place] TROPONIN I 2022-06-26 Iraj [facility] of 11:30:[address] [facility] [place] BASIC METABOLIC PANEL (NA, K, 2022-06-26 Brayan [facility] Un iversity of CL, CO2, GLUCOSE, BUN, 11:30:00 [facility] ical CREATININE, CA) Branch CBC WITH DIFF 2022-06-26 [facility] of 11:30:[address] [facility] [place] D-DIMER 2022-06-26 [facility] of 11:30:[address] [facility] [place] N-TERMINAL PRO-BNP 2022-06-26 Iraj [facility] of 11:30:[address] [facility] [place] HB ECG ROUTINE & RHYTHM STRIP 2022-06-26 Marin Long Un iversity of 11:04:45 [facility] HB ECG ROUTINE & RHYTHM STRIP 2022-06-26 Marin Long Un iversity of 11:04:45 [facility] XR CHEST 1 2022-06-26 Mercedes [facility] of 10:55:00 [facility] XR KUB 2022-06-26 Mercedes [facility] of 10:55:00 [facility] XR CHEST 1 VW 2022-06-26 Mercedes [facility] of 10:55:00 [facility] XR KUB 2022-06-26 Mercedes [facility] of 10:55:00 [facility] HEPATIC FUNCTION PANEL ([id number]) 2022-06-25 Jose Ramon Johnson niversity of (ALB,T.PRO,BILI 23:02:00 [facility] T,BU/BC,ALT,AST,ALK PHOS) Branch HEPATIC FUNCTION PANEL ([id number]) 2022-06-25 Guba, Jose Ramon U niversity of (ALB,T.PRO,BILI 23:02:00 [facility] T,BU/BC,ALT,AST,ALK PHOS) Branch POCT GLUCOSE (AUTOMATED) 2022-06-25 Heath Dia [facility] ersity of 20:13:[address] [facility] [place] POCT GLUCOSE (AUTOMATED) 2022-06-25 Heath Dia [facility] ersity of 20:13:[address] [facility] [place] IR PLACEMENT ACCESS THRU BILIARY 2022-06-25 Cherie Schmidt of TREE PERCUTANEOUS NEW ACCESS 18:30:31 [facility] BASIC METABOLIC PANEL (NA, K, 2022-06-24 Cherie Schmidt Un iversity of CL, CO2, GLUCOSE, BUN, 14:28:00 [facility] CREATININE, CA) Branch MAGNESIUM 2022-06-24 Cherie Schmidt [facility] of 14:28:[address] [facility] [place] HEPATIC FUNCTION PANEL ([id number]) 2022-06-24 Jose Ramon Johnson U niversity of (ALB,T.PRO,BILI 14:28:00 [facility] T,BU/BC,ALT,AST,ALK PHOS) Branch MAGNESIUM 2022-06-24 Cherie Schmidt [facility] of 14:28:[address] [facility] [place] HEPATIC FUNCTION PANEL ([id number]) 2022-06-24 Jose Ramon Johnson U niversity of (ALB,T.PRO,BILI 14:28:00 [facility] T,BU/BC,ALT,AST,ALK PHOS) Branch BASIC METABOLIC PANEL (NA, K, 2022-06-24 Cherie Schmidt Un iversity of CL, CO2, GLUCOSE, BUN, 14:28:00 [place] [facility] CREATININE, CA) Branch MAGNESIUM 2022-06-24 Cherie Schmidt [place] of 14:28:[address] [facility] [place] BASIC METABOLIC PANEL (NA, K, 2022-06-24 Cherie Schmidt Un iversity of CL, CO2, GLUCOSE, BUN, 14:28:00 [place] [facility] CREATININE, CA) Branch CBC WITH DIFF 2022-06-24 Cherie Schmidt of 10:11:[address] [facility] [place] CBC WITH DIFF 2022-06-24 Cherie Schmidt [place] of 10:11:[address] [facility] [place] CBC WITH DIFF 2022-06-24 Brayan [facility] of 10:11:[address] [facility] [place] BASIC METABOLIC PANEL (NA, K, 2022-06-23 Cherie Schmidt Un iversity of CL, CO2, GLUCOSE, BUN, 21:07:00 [place] [facility] CREATININE, CA) Branch PROTHROMBIN TIME / INR 2022-06-23 Cherie Schmidt [facility] y of 21:07:[address] [facility] [place] HEPATIC FUNCTION PANEL ([id number]) 2022-06-23 Elizabeth Jose Ramon U niversity of (ALB,T.PRO,BILI 21:07:00 [facility] T,BU/BC,ALT,AST,ALK PHOS) Branch HEPATIC FUNCTION PANEL ([id number]) 2022-06-23 Elizabeth Jose Ramon U niversity of (ALB,T.PRO,BILI 21:07:00 [facility] T,BU/BC,ALT,AST,ALK PHOS) Branch BASIC METABOLIC PANEL (NA, K, 2022-06-23 Cherie Schmidt Un iversity of CL, CO2, GLUCOSE, BUN, 21:07:00 [place] [facility] CREATININE, CA) Branch PROTHROMBIN TIME / INR 2022-06-[address] [facility] [place] [facility] y of 21:07:[address] [facility] [place] HEPATIC FUNCTION PANEL ([id number]) 2022-06-23 Jose Ramon Johnson U niversity of (ALB,T.PRO,BILI 21:07:00 [facility] T,BU/BC,ALT,AST,ALK PHOS) Branch BASIC METABOLIC PANEL (NA, K, 2022-06-23 Cherie Schmidt Un iversity of CL, CO2, GLUCOSE, BUN, 21:07:00 [place] [facility] CREATININE, CA) Branch PROTHROMBIN TIME / INR 2022-06-23 Cherie Schmidt [facility] y of 21:07:[address] [facility] [place] INTUBATION 2022-06-[address] [facility] of 15:00:[address] [facility] [place] ENDOSCOPIC RETROGRADE 2022-06-23 [place], [facility] ty of CHOLANGIOPANCRETOGRAPHY 14:40:00 [facility] dical Branch ENDOSCOPIC RETROGRADE 2022-06-23 [place] home, [facility] ty of CHOLANGIOPANCRETOGRAPHY 14:40:00 [facility] dical Branch ENDOSCOPIC RETROGRADE 2022-06-23 [place] home, [facility] ty of CHOLANGIOPANCRETOGRAPHY 14:40:[address] [facility] ERCP (ENDO) 2022-06-23 [facility] of 14:30:[address] [facility] [place] ERCP (ENDO) 2022-06-23 [facility] of 14:30:[address] [facility] [place] [place] PROTHROMBIN TIME / INR 2022-06-23 Cruz Galo [facility] y of 10:05:[address] [facility] [place] COMP. METABOLIC PANEL ([id number]) 2022-06-23 Cruz Galo iversity of 10:05:[address] [facility] [place] CBC WITH DIFF 2022-06-23 Cruz Galo [place] of 10:05:[address] [facility] [place] COMP. METABOLIC PANEL ([id number]) 2022-06-23 Cruz Galo iversity of 10:05:[address] [facility] [place] CBC WITH DIFF 2022-06-23 Cruz Galo [place] of 10:05:[address] [facility] [place] PROTHROMBIN TIME / INR 2022-06-23 Cruz Galo [facility] y of 10:05:[address] [facility] [place] COMP. METABOLIC PANEL ([id number]) 2022-06-23 Cruz Galo iversity of 10:05:[address] [facility] [place] CBC WITH DIFF 2022-06-23 Cruz Galo [place] of 10:05:[address] [facility] [place] PROTHROMBIN TIME / INR 2022-06-23 Cruz Galo [facility] y of 10:05:[address] [facility] [place] CBC WITH DIFF 2022-06-22 Brayan [facility] of 06:07:[address] [facility] [place] BASIC METABOLIC PANEL (NA, K, 2022-06-22 Brayan [facility] iversity of CL, CO2, GLUCOSE, BUN, 06:07:00 [facility] ical CREATININE, CA) Branch MAGNESIUM 2022-06-22 [facility] of 06:07:[address] [facility] [place] HEPATIC FUNCTION PANEL ([id number]) 2022-06-22 April Cardoza U niversity of (ALB,T.PRO,BILI 06:07:00 [facility] T,BU/BC,ALT,AST,ALK PHOS) Branch MAGNESIUM 2022-06-22 [facility] of 06:07:[address] [facility] [place] HEPATIC FUNCTION PANEL ([id number]) 2022-06-22 April Cardoza U niversity of (ALB,T.PRO,BILI 06:07:00 [facility] T,BU/BC,ALT,AST,ALK PHOS) Branch BASIC METABOLIC PANEL (NA, K, 2022-06-22 Cherie Schmidt Un iversity of CL, CO2, GLUCOSE, BUN, 06:07:00 [facility] CREATININE, CA) Branch CBC WITH DIFF 2022-06-22 Cherie Schmidt of 06:07:[address] [facility] [place] MAGNESIUM 2022-06-22 Cherie Schmidt of 06:07:[address] [facility] [place] HEPATIC FUNCTION PANEL ([id number]) 2022-06-22 April Cardoza U niversity of (ALB,T.PRO,BILI 06:07:00 [facility] T,BU/BC,ALT,AST,ALK PHOS) Branch BASIC METABOLIC PANEL (NA, K, 2022-06-22 Cherie Schmidt Un iversity of CL, CO2, GLUCOSE, BUN, 06:07:00 [place] [facility] CREATININE, CA) Branch CBC WITH DIFF 2022-06-22 Cherie Schmidt R[place] of 06:07:00 [facility] HEPATOBILIARY 2022-06-21 [place] [facility] of 22:00:00 [facility] HEPATOBILIARY 2022-06-21 [place], [facility] of 22:00:00 [facility] HEPATOBILIARY 2022-06-21 [place] [facility] of 22:00:[address] [facility] [place] PROTHROMBIN TIME / INR 2022-06-21 [place] [facility] y of 10:51:[address] [facility] [place] CBC WITH DIFF 2022-06-21 [place] [facility] of 10:51:[address] [facility] [place] BASIC METABOLIC PANEL (NA, K, 2022-06-21 Branden Tim iversity of CL, CO2, GLUCOSE, BUN, 10:51:00 [facility] CREATININE, CA) Branch HEPATIC FUNCTION PANEL ([id number]) 2022-06-21 Branden Tim niversity of (ALB,T.PRO,BILI 10:51:00 [facility] T,BU/BC,ALT,AST,ALK PHOS) Branch HEPATIC FUNCTION PANEL ([id number]) 2022-06-21 Branden Tim U niversity of (ALB,T.PRO,BILI 10:51:00 [facility] T,BU/BC,ALT,AST,ALK PHOS) Branch BASIC METABOLIC PANEL (NA, K, 2022-06-21 Branden Tim Un iversity of CL, CO2, GLUCOSE, BUN, 10:51:00 [place] [facility] CREATININE, CA) Branch CBC WITH DIFF 2022-06-21 Branden Tim of 10:51:00 [facility] PROTHROMBIN TIME / INR 2022-06-21 [place], Branden Universit y of 10:51:00 [facility] Branch HEPATIC FUNCTION PANEL ([id number]) 2022-06-21 Branden Tim U niversity of (ALB,T.PRO,BILI 10:51:00 [facility] T,BU/BC,ALT,AST,ALK PHOS) Branch BASIC METABOLIC PANEL (NA, K, 2022-06-21 Branden Tim Un iversity of CL, CO2, GLUCOSE, BUN, 10:51:00 [place] [facility] CREATININE, CA) Branch CBC WITH DIFF 2022-06-21 Branden Tim of 10:51:[address] [facility] [place] [place] PROTHROMBIN TIME / INR 2022-06-21 Branden Tim Universit y of 10:51:[address] [facility] [place] CBC WITH DIFF 2022-06-20 Michelle Grande of 06:45:00 [facility] Branch COMP. METABOLIC PANEL ([id number]) 2022-06-20 Michelle Grande Un iversity of 06:45:00 [facility] Branch PROTHROMBIN TIME / INR 2022-06-20 Michelle Grande Universit y of 06:45:00 [facility] Branch COMP. METABOLIC PANEL ([id number]) 2022-06-20 Michelle Grande Un iversity of 06:45:[address] [facility] [place] CBC WITH DIFF 2022-06-20 Michelle Grande of 06:45:00 [facility] Branch PROTHROMBIN TIME / INR 2022-06-20 Michelle Grande Universit y of 06:45:00 [facility] COMP. METABOLIC PANEL ([id number]) 2022-06-20 Michelle Grande Un iversity of 06:45:[address] [facility] [place] CBC WITH DIFF 2022-06-20 Michelle Grande of 06:45:00 [facility] Branch PROTHROMBIN TIME / INR 2022-06-20 GrandeMichelle vera y of 06:45:[address] [facility] [place] HEPATITIS C VIRUS (HCV) BY 2022-06-19 Michelle Grande rsity of QUANTITATIVE NAAT 10:56:[address] [facility] [place] BASIC METABOLIC PANEL (NA, K, 2022-06-19 Michelle Grande Un iversity of CL, CO2, GLUCOSE, BUN, 10:56:00 [place] [facility] CREATININE, CA) Branch MAGNESIUM 2022-06-19 Michelle Grande Rincon of 10:56:[address] [facility] [place] MAGNESIUM 2022-06-19 Michelle Grande R[facility] of 10:56:[address] [facility] [place] [place] BASIC METABOLIC PANEL (NA, K, 2022-06-19 Michelle Grande Un iversity of CL, CO2, GLUCOSE, BUN, 10:56:00 [place] [facility] CREATININE, CA) Branch HEPATITIS C VIRUS (HCV) BY 2022-06-19 Michelle Grande rsity of QUANTITATIVE NAAT 10:56:[address] [facility] [place] MAGNESIUM 2022-06-19 Michelle Grande R[place] of 10:56:[address] [facility] [place] [place] BASIC METABOLIC PANEL (NA, K, 2022-06-19 Michelle Grande Un iversity of CL, CO2, GLUCOSE, BUN, 10:56:00 [place] [facility] CREATININE, CA) Branch HEPATITIS C VIRUS (HCV) BY 2022-06-19 Michelle Grande rsity of QUANTITATIVE NAAT 10:56:[address] [facility] [place] [place] ANGIOGRAM ABDOMEN/PELVIS 2022-06-19 Michelle Grande ersity of 08:05:[address] [facility] [place] ANGIOGRAM ABDOMEN/PELVIS 2022-06-19 Michelle Grande [facility] ersity of 08:05:[address] [facility] [place] [place] ANGIOGRAM ABDOMEN/PELVIS 2022-06-19 Michelle Grande [facility] ersity of 08:05:[address] [facility] [place] [place] MR ABDOMEN W WO CONTRAST MRCP 2022-06-18 Cruz Galo Un iversity of 09:58:[address] [facility] [place] [place] MR ABDOMEN W WO CONTRAST MRCP 2022-06-18 Cruz Galo Un iversity of 09:58:[address] [facility] [place] [place] MR ABDOMEN W WO CONTRAST MRCP 2022-06-18 Cruz Galo Un iversity of 09:58:[address] [facility] [place] BLOOD CULTURE SCREEN 2022-06-18 Iraj [facility] of 06:57:[address] [facility] [place] [place] BLOOD CULTURE SCREEN 2022-06-18 Iraj [facility] of 06:57:[address] [facility] [place] [place] BLOOD CULTURE SCREEN 2022-06-18 Iraj [facility] of 06:57:[address] [facility] [place] URINALYSIS 2022-06-17 Rylee [facility] of 22:32:00 [facility] URINALYSIS 2022-06-17 Rylee, [facility] of 22:32:00 [facility] URINALYSIS 2022-06-17 Rylee [facility] of 22:32:00 [facility] CT ABDOMEN PELVIS W CONTRAST 2022-06-17 Yoni Mckee Uni versity of 22:20:00 [facility] CT ABDOMEN PELVIS W CONTRAST 2022-06-17 Yoni Mckee Uni versity of 22:20:00 [facility] CT ABDOMEN PELVIS W CONTRAST 2022-06-17 Yoni Mckee [facility] versity of 22:20:00 [facility] LACTIC ACID WHOLE BLOOD 2022-06-17 Yoni Mckee [facility] ty of 21:18:00 [facility] LACTIC ACID WHOLE BLOOD 2022-06-17 Yoni Mckee [facility] ty of 21:18:00 [facility] LACTIC ACID WHOLE BLOOD 2022-06-17 Rylee [facility] ty of 21:18:00 [facility] LAB ONLY COVID INTERPRETATION 2022-06-17 Yoni Mckee iversity of 20:04:00 [facility] CBC WITH DIFF 2022-06-17 Yoni Mckee Rincon of 20:04:00 [facility] BASIC METABOLIC PANEL (NA, K, 2022-06-17 Yoni Mckee iversity of CL, CO2, GLUCOSE, BUN, 20:04:00 [facility] ical CREATININE, CA) Branch HEPATIC FUNCTION PANEL ([id number]) 2022-06-17 Yoni Mckee niversity of (ALB,T.PRO,BILI 20:04:00 [facility] T,BU/BC,ALT,AST,ALK PHOS) Branch LIPASE 2022-06-17 Yoni Mckee of 20:04:00 [facility] TROPONIN I 2022-06-17 Yoni Mckee of 20:04:00 [facility] N-TERMINAL PRO-BNP 2022-06-17 Yoni Mckee of 20:04:00 [facility] COVID-19 (ID NOW RAPID TESTING) 2022-06-17 Yoni Mckee Rincon of 20:04:00 [facility] GALV ONLY - INFLUENZA A B RSV 2022-06-17 Yoni Mckee iversity of PCR 20:04:00 [facility] LAB ONLY COVID INTERPRETATION 2022-06-17 Yoni Mckee iversity of 20:04:00 [facility] ALPHA FETOPROTEIN 2022-06-17 Harjinder [facility] of 20:04:[address] [facility] [place] [place] HEPATITIS B SURFACE ANTIBODY 2022-06-17 [facility] of 20:04:[address] [facility] [place] [place] HEPATITIS B SURFACE ANTIGEN 2022-06-17 [facility] ersity of 20:04:[address] [facility] [place] [place] HEPATITIS A VIRUS ANTIBODY IGM 2022-06-17 Michelle Grande U niversity of 20:04:[address] [facility] [place] [place] LIPASE 2022-06-17 Yoni Mckee [place] of 20:04:00 [facility] TROPONIN I 2022-06-17 Yoni Mckee of 20:04:00 [facility] HEPATIC FUNCTION PANEL ([id number]) 2022-06-17 Yoni Mckee niversity of (ALB,T.PRO,BILI 20:04:00 [facility] T,BU/BC,ALT,AST,ALK PHOS) Branch BASIC METABOLIC PANEL (NA, K, 2022-06-17 Yoni Mckee iversity of CL, CO2, GLUCOSE, BUN, 20:04:00 [facility] ical CREATININE, CA) Branch ALPHA FETOPROTEIN 2022-06-17 [facility] 20:04[facility] [facility] [place] [place] CBC WITH DIFF 2022-06-17 Yoni Mckee [place] of 20:04:00 [facility] HEPATITIS B SURFACE ANTIBODY 2022-06-17 Michelle Grande Uni versity of 20:04:[address] [facility] [place] [place] HEPATITIS B SURFACE ANTIGEN 2022-06-17 [facility] ersity of 20:04:[address] [facility] [place] [place] HEPATITIS A VIRUS ANTIBODY IGM 2022-06-17 Michelle Grande U niversity of 20:04:[address] [facility] [place] [place] GALV ONLY - INFLUENZA A B RSV 2022-06-17 Yoni Mckee iversity of PCR 20:04:00 [facility] N-TERMINAL PRO-BNP 2022-06-17 Rylee [facility] of 20:04:00 [facility] COVID-19 (ID NOW RAPID TESTING) 2022-06-17 Yoni Mckee [place] of 20:04:00 [facility] LAB ONLY COVID INTERPRETATION 2022-06-17 Yoni Mckee iversity of 20:04:00 [facility] LIPASE 2022-06-17 Yoni Mckee [place] of 20:04:00 [facility] TROPONIN I 2022-06-17 Rylee [facility] of 20:04:00 [facility] HEPATIC FUNCTION PANEL ([id number]) 2022-06-17 Yoni Mckee niversity of (ALB,T.PRO,BILI 20:04:00 [facility],BU/BC,ALT,AST,ALK PHOS) Branch BASIC METABOLIC PANEL (NA, K, 2022-06-17 Yoni Mckee iversity of CL, CO2, GLUCOSE, BUN, 20:04:00 [facility] ical CREATININE, CA) Branch ALPHA FETOPROTEIN 2022-06-17 Harjinder [facility] of 20:04:[address] [facility] [place] [place] CBC WITH DIFF 2022-06-17 Yoni Mckee [place] of 20:04:00 [facility] HEPATITIS B SURFACE ANTIBODY 2022-06-17 Michelle Grande Uni versity of 20:04:[address] [facility] [place] [place] HEPATITIS B SURFACE ANTIGEN 2022-06-17 [facility] ersity of 20:04:[address] [facility] [place] [place] HEPATITIS A VIRUS ANTIBODY IGM 2022-06-17 Michelle Grande U niversity of 20:04:[address] [facility] [place] [place] GALV ONLY - INFLUENZA A B RSV 2022-06-17 Yoni Mckee iversity of PCR 20:04:00 [facility] N-TERMINAL PRO-BNP 2022-06-17 Dellis, [facility] of 20:04:00 [facility] COVID-19 (ID NOW RAPID TESTING) 2022-06-17 Yoni Mckee [place] of 20:04:00 [facility] HB ECG ROUTINE & RHYTHM STRIP 2022-06-17 Yoni Mckee Un iversity of 19:51:18 [facility] HB ECG ROUTINE & RHYTHM STRIP 2022-06-17 Yoni Mckee Un iversity of 19:51:18 [facility] HB ECG ROUTINE & RHYTHM STRIP 2022-06-17 Yoni Mckee Un iversity of 19:51:18 [facility] CONSENT/REFUSAL FOR DIAGNOSIS 2022-06-17 Doctor Unassigned, [facility] AND TREATMENT 19:29:[address] [facility] [place] [place] CONSENT/REFUSAL FOR DIAGNOSIS 2022-06-17 Doctor Unassigned, [facility] AND TREATMENT 19:29:[address] [facility] [place] CONSENT/REFUSAL FOR DIAGNOSIS 2022-06-17 Doctor Unassigned, [facility] AND TREATMENT 19:29:[address] [place] [facility] [place] [place] HOSPITAL ADMISSION 2022-06-17 Doctor Unassigned, [facility] 05:01:[address] [place] [facility] [place] ENDOSCOPIC RETROGRADE 2022-06-[address] [facility] CHOLANGIOPANCREATOGRAPHY, WITH 11:30:00 [facility] STENT REMOVAL XR ABDOMEN/KUB 1 VIEW PORTABLE 2022-06-[address] [facility] 17:47:00 [facility] 2D ECHO W/ DOPPLER (CW/PW/COLOR) 2022-06-[address] [facility] 13:46:35 [facility] 2D ECHO W/ DOPPLER (CW/PW/COLOR) 2022-06-[address] [facility] 13:46:35 [facility] CT ABDOMEN/PELVIS WITH IV 2022-06-[address] [facility] CONTRAST 09:50:00 [facility] XR CHEST 1 VIEW PORTABLE / 2022-06-[address] [facility] BEDSIDE 14:42:00 [facility] SARS-COV2/INFLUENZA/RSV RT-PCR 2022-06-[address] [facility] 13:30:00 [facility] PERMANENT LAB REPORT - SCAN 2022-06-07 Provider, Default [facility] 00:00:00 Scanning [facility] CBC W/PLT COUNT & AUTO 2022-05-[address] [facility] DIFFERENTIAL 04:18:00 [facility] COMPREHENSIVE METABOLIC PANEL 2022-05-19 Mian, [facility]idro [facility] 04:18:00 [facility] CBC W/PLT COUNT & AUTO 2022-05-[address] [facility] DIFFERENTIAL 04:18:00 [facility] CBC W/PLT COUNT & AUTO 2022-05-18 Mian, Isidro [facility] DIFFERENTIAL 03:21:00 [facility] COMPREHENSIVE METABOLIC PANEL 2022-05-[address] [facility] 03:21:00 [facility] CBC W/PLT COUNT & AUTO 2022-05-[address] [facility] DIFFERENTIAL 03:21:00 [facility] BODY FLUID CULTURE + GRAM STAIN 2022-05-[address] [facility] 16:45:00 [facility] IR TUNNELED DRAINAGE CATHETER 2022-05-[address] [facility] PLACEMENT 16:22:00 [facility] CBC W/PLT COUNT & AUTO 2022-05-[address] [facility] DIFFERENTIAL 05:15:00 [facility] COMPREHENSIVE METABOLIC PANEL 2022-05-[address] [facility] 05:15:00 [facility] PROTHROMBIN TIME/INR 2022-05-[address] [facility] 05:15:00 [facility] CBC W/PLT COUNT & AUTO 2022-05-[address] [facility] DIFFERENTIAL 05:15:00 [facility] SARS-COV2/RT-PCR ([facility] & REF 2022-05-[address] [facility] LABS) 04:37:00 [facility] TYPE AND SCREEN, AUTOMATED 2022-05-15 Georgiana Clarke [facility] 01:25:00 [facility] BASIC METABOLIC PANEL 2022-05-15 Georgiana Clarke [facility] 01:24:00 [facility] HEPATIC FUNCTION PANEL 2022-05-15 Georgiana Clarke [facility] 01:24:00 [facility] PROTHROMBIN TIME/INR 2022-05-[address] [facility] 01:24:00 [facility] PHOSPHORUS 2022-05-[address] [facility] 01:24:00 [facility] MAGNESIUM 2022-05-[address] [facility] 01:24:00 [facility] CBC W/PLT COUNT & AUTO 2022-05-[address] [facility] DIFFERENTIAL 01:24:00 [facility] CBC W/PLT COUNT & AUTO 2022-05-[address] [facility] DIFFERENTIAL 01:24:00 [facility] BASIC METABOLIC PANEL 2022-05-11 Mookie [address] Kearns [facility] 03:30:00 [facility] CBC W/PLT COUNT & AUTO 2022-05-11 Mookie [address] Kearns [facility] DIFFERENTIAL 03:30:00 [facility] MAGNESIUM 2022-05-11 Mookie Sandra Kearns [facility] 03:30:00 [facility] HEPATIC FUNCTION PANEL 2022-05-11 Mookie [address] Kearns [facility] 03:30:00 [facility] LIPID PANEL 2022-05-11 Mookie Sandra Kearns [facility] 03:30:00 [facility] CBC W/PLT COUNT & AUTO 2022-05-11 Mookie [address] Kearns [facility] DIFFERENTIAL 03:30:[address] [facility] CT ABDOMEN/PELVIS WITH IV 2022-05-[address] [facility] CONTRAST 19:08:00 [facility] REPORT OF PROCEDURE - ENDOSCOPY 2022-05-[address] [facility] URL 14:45:00 [facility] ERCP, WITH SPHINCTEROTOMY 2022-05-10 Fam, Radha [facility] 08:00:00 [facility] ENDOSCOPIC RETROGRADE 2022-05-[address] [facility] CHOLANGIOPANCREATOGRAPHY, WITH 08:00:00 [facility] BILE DUCT STENT INSERTION ERCP, WITH BALLOON SWEEP OF BILE 2022-05-[address] [facility] DUCTS 08:00:00 [facility] PROCEDURE W/ C-ARM 2022-05-10 Fam, Radha [facility] 08:00:00 [facility] CBC (HEMOGRAM ONLY) 2022-05-[address] [facility] 03:20:00 [facility] COMPREHENSIVE METABOLIC PANEL 2022-05-[address] [facility] [address] [facility] 03:20:00 [facility] SARS-COV2/RT-PCR ([facility] & REF 2022-05-[address] [facility]) 17:00:00 [facility] Plan of Care Planned Activity Planned Date Details Comments Source Future Scheduled 2027-05-11 Lipid panel (procedure) [facility] Test 00:00:00 [code = 24485114] Medical Ce nter Future Scheduled 2027-05-11 Lipid panel (procedure) [facility] 00:00:00 [code = 56303386] Medical Ce nter Future Scheduled 2027-05-11 Lipid panel (procedure) [facility] 00:00:00 [code = 29899877] Medical Ce nter Future Scheduled 2027-05-11 Lipid panel (procedure) [facility] 00:00:00 [code = 20398623] Medical Ce nter Future Scheduled 2027-05-11 Lipid panel (procedure) [facility] 00:00:00 [code = 48404624] Medical Ce nter Future Scheduled 2027-05-11 Lipid panel (procedure) [facility] 00:00:00 [code = 30647376] Medical Ce nter Future Scheduled 2027-05-11 Lipid panel (procedure) [facility] 00:00:00 [code = 15424698] Medical Ce nter Future Scheduled 2027-05-11 Lipid panel (procedure) [facility] 00:00:00 [code = 25565385] Medical Ce nter Future Scheduled 2023-05-10 Tobacco [...] Counseling and Screening (12+)] Future Scheduled 2023-05-06 Influenza Vaccine (#1) [facility] 00:00:00 [code = Influenza Medical Ce nter Vaccine (#1)] Future Scheduled 2023-05-[address] [facility] 00:00:00 (Season Ended) [code = [facility] INFLUENZA VACCINE (Season Ended)] Future Scheduled 2023-05-06 Influenza Vaccine (#1) [facility] 00:00:00 [code = Influenza Medical Ce nter Vaccine (#1)] Future Scheduled 2022-09-[address] [facility] 00:00:00 (12+) [code = Medical Center DEPRESSION SCREENING (12+)] Future Scheduled 2022-09-[address] [facility] 00:00:00 (12+) [code = [facility] DEPRESSION SCREENING (12+)] Future Scheduled 2022-09-[address] [facility] 00:00:00 (12+) [code = Medical Center DEPRESSION SCREENING (12+)] Future Scheduled 2022-09-[address] [facility] 00:00:00 (12+) [code = [facility] DEPRESSION SCREENING (12+)] Future Scheduled 2022-09-[address] [facility] 00:00:00 (12+) [code = [facility] DEPRESSION SCREENING (12+)] Future Scheduled 2022-05-06 [facility]00 2) [code = [facility] VACCINES (1 of 2)] Future [...] Counseling and Screening (12+)] Future Scheduled 1965-12-24 Pneumococcal Vaccine: [facility] 00:00:00 0-64 Years (1 - PCV) Medical Center [code = Pneumococcal Vaccine: 0-64 Years (1 - PCV)] Future Scheduled 1965-12-24 PNEUMOCOCCAL [...] YRS (1 - PCV)] Future Scheduled 1965-12-24 Pneumococcal Vaccine: [facility] 00:00:00 0-64 Years (1 - PCV) Medical Center [code = Pneumococcal Vaccine: 0-64 Years (1 - PCV)] Future Scheduled 1965-12-24 PNEUMOCOCCAL [...] 00:00:00 [code = CT Colonography [facility] (combo)] Future Scheduled 1959 Screening for malignant [facility] 00:00:00 neoplasm of colon Medical Ce nter (procedure) [code = 502828069] Future Scheduled 1959 Screening for malignant [facility] 00:00:00 neoplasm of colon Medical Ce nter (procedure) [code = 966354513] Future Scheduled 1959 Screening for malignant [facility] Test 00:00:00 neoplasm of colon Medical Ce nter (procedure) [code = 354153031] Future Scheduled 1959 Screening for malignant [facility] Test 00:00:00 neoplasm of colon Medical Ce nter (procedure) [code = 862951613] Future Scheduled 1959 Sigmoidoscopy [code = [facility] 00:00:00 Sigmoidoscopy] Medical Cente r Future Scheduled 1959 CT Colonography (combo) [facility] 00:00:00 [code = CT Colonography [facility] (combo)] Future Scheduled 1959 Screening for malignant [facility] 00:00:00 neoplasm of colon Medical Ce nter (procedure) [code = 343711234] Future Scheduled 1959 Screening for malignant [facility] 00:00:00 neoplasm of colon Medical Ce nter (procedure) [code = 919197248] Future Scheduled 1959 Screening for malignant [facility] 00:00:00 neoplasm of colon Medical Ce nter (procedure) [code = 668630511] Future Scheduled 1959 Screening for malignant [facility] 00:00:00 neoplasm of colon Medical Ce nter (procedure) [code = 899897177] Future Scheduled 1959 Sigmoidoscopy [code = [facility] 00:00:00 Sigmoidoscopy] Medical Cente r Future Scheduled 1959 CT Colonography (combo) [facility] 00:00:00 [code = CT [facility] ([facility])] Future Scheduled 1959 Screening for malignant [facility] 00:00:00 neoplasm of colon Medical Ce nter (procedure) [code = 447177381] Future Scheduled 1959 Screening for malignant [facility] 00:00:00 neoplasm of colon Medical Ce nter (procedure) [code = 939502543] Future Scheduled 1959 Screening for malignant [facility] 00:00:00 neoplasm of colon Medical Ce nter (procedure) [code = 098760116] Future Scheduled 1959 Screening for malignant [facility] 00:00:00 neoplasm of colon Medical Ce nter (procedure) [code = 094294528] Future Scheduled 1959 Sigmoidoscopy [code = [facility] 00:00:00 Sigmoidoscopy] Medical Cente r Future Scheduled 1959 CT Colonography (combo) [facility] 00:00:00 [code = CT [facility] (combo)] Future Scheduled 1959 Screening for malignant [facility] 00:00:00 neoplasm of colon Medical Ce nter (procedure) [code = 172474502] Future Scheduled 1959 Screening for malignant [facility] 00:00:00 neoplasm of colon Medical Ce nter (procedure) [code = 307297160] Future Scheduled 1959 Screening for malignant [facility] 00:00:00 neoplasm of colon Medical Ce nter (procedure) [code = 306643062] Future Scheduled 1959 Screening for malignant [facility] 00:00:00 neoplasm of colon Medical Ce nter (procedure) [code = 493453580] Future Scheduled 1959 Sigmoidoscopy [code = [facility] 00:00:00 Sigmoidoscopy] Medical Cente r Future Scheduled 1959 CT Colonography (combo) [facility] 00:00:00 [code = CT Colonography [facility] (combo)] Future Scheduled 1959 Screening for malignant [facility] 00:00:00 neoplasm of colon Medical Ce nter (procedure) [code = 669428252] Future Scheduled 1959 Screening for malignant [facility] 00:00:00 neoplasm of colon Medical Ce nter (procedure) [code = 580870878] Future Scheduled 1959 Screening for malignant [facility] 00:00:00 neoplasm of colon Medical Ce nter (procedure) [code = 349359274] Future Scheduled 1959 Screening for malignant [facility] 00:00:00 neoplasm of colon Medical Ce nter (procedure) [code = 702084899] Future Scheduled 1959 Sigmoidoscopy [code = [facility] 00:00:[facility] Sigmoidoscopy] Medical Cente r Future Scheduled 1959 CT Colonography (combo) [facility] 00:00:00 [code = CT Colonography [facility] (combo)] Future Scheduled 1959 Screening for malignant [facility] 00:00:00 neoplasm of colon Medical Ce nter (procedure) [code = 039923823] Future Scheduled 1959 Screening for malignant [facility] 00:00:00 neoplasm of colon Medical Ce nter (procedure) [code = 612853760] Future Scheduled 1959 Screening for malignant [facility] 00:00:00 neoplasm of colon Medical Ce nter (procedure) [code = 094206775] Future Scheduled 1959 Screening for malignant [facility] 00:00:00 neoplasm of colon Medical Ce nter (procedure) [code = 036528873] Future Scheduled 1959 Sigmoidoscopy [code = [facility] 00:00:[facility] Sigmoidoscopy] Medical Cente r Future Scheduled 1959 CT Colonography (combo) [facility] 00:00:00 [code = CT Colonography [facility] ([facility]bo)] Future Scheduled 1959 Screening for malignant [facility] 00:00:00 neoplasm of colon Medical Ce nter (procedure) [code = 078136010] Future Scheduled 1959 Screening for malignant [facility] 00:00:00 neoplasm of colon Medical Ce nter (procedure) [code = 424180597] Future Scheduled 1959 Screening for malignant [facility] 00:00:00 neoplasm of colon Medical Ce nter (procedure) [code = 866847968] Future Scheduled 1959 Screening for malignant [facility] 00:00:00 neoplasm of colon Medical Ce nter (procedure) [code = 682181302] Future Scheduled 1959 Sigmoidoscopy [code = [facility] 00:00:00 Sigmoidoscopy] Medical Cente r Future Scheduled 1959 CT Colonography (combo) [facility] 00:00:00 [code = CT [facility] ([facility])] Future Scheduled 1959 Screening for malignant [facility] 00:00:00 neoplasm of colon Medical Ce nter (procedure) [code = 406333891] Future Scheduled 1959 Screening for malignant [facility] Test 00:00:00 neoplasm of colon Medical Ce nter (procedure) [code = 286514163] Future Scheduled 1959 Screening for malignant [facility] 00:00:00 neoplasm of colon Medical Ce nter (procedure) [code = 323125601] Future Scheduled 1959 Screening for malignant [facility] 00:00:00 neoplasm of colon Medical Ce nter (procedure) [code = 873598615] Future Scheduled 1959 Sigmoidoscopy [code = [facility] 00:00:00 Sigmoidoscopy] Medical Arlenee r Encounters Start End Encounter Admission Attending Care Care Encounter Source Date/Time Date/Time Type Type Clinicians Facility Department ID 2022-05-14 Outpatient LOIS OTTO, SLE Surgery [id number] SLE 12:12:34 RADHA 2023-04-08 2023-04-08 Patient Doctor CASIE 1.2.840.114 [id number] Univers 00:00:00 00:00:00 Secure Msg Unassigned, DEMI 350.1.13.10 ity of [place] [facility] 4.2.7.2.686 [place] as [id number] [facility] [address] [place] 2023-04-06 2023-04-06 Emergency X MELISSA THORNE [facility] ERT [id number] Univers 13:45:00 17:44:00 MELISSA THORNE itmitchel [facility] 2023-04-06 2023-04-06 Emergency SonyaChristopher, TRAUMA 1.2.840.114 [id number] Univers 13:45:00 17:44:00 [facility] 350.1.13.10 [place] [id number] [facility] 014 Branch 2023-03-03 2023-03-03 Patient Doctor CASIE 1.2.840.114 [id number] Univers 00:00:00 00:00:00 Secure Msg Unassigned, DEMI 350.1.13.10 ity of [place] [facility] 4.2.7.2.686 [place] [id number] [facility] [address] [place] 2023-02-28 2023-02-28 Transition MADHU Hutchison 1.2.840.114 [id number] Univers 00:00:00 00:00:00 of Care Tessa GONZALEZ 350.1.13.10 [place] [id number] [facility] 403 [address] 2023-02-18 2023-02-25 Inpatient X ALLY HDZ [facility] ALEX [id number] Univers 12:01:00 17:43:[address] [facility] [place] [place] 2023-02-18 2023-02-25 [facility] Fady Freed 1.2.8 40.114 [id number] Univers 12:01:00 17:43:00 Encounter Ally Hdz 350.1.13 .10 ity of HOSPITAL 4.2.7.2.686 [place] [id number] [facility] 093 Branch 2023-02-24 2023-02-24 Surgery Al [facility] 1.2.371.511 [id number] Univers 09:55:00 11:18:00 Lindsay GARCIA 350.1.13.10 it y of SCIENCES 4.2.7.2.686 [place] BLDG [id number] [facility] 020 Branch 2023-02-18 2023-02-18 Travel 1.2.840.1 1.2.067.191 [id number] Univers 00:00:00 00:00:00 46305.1.1 350.1.13.10 ity of 3.104.2.7 [place].698 [place] .3.053162 084.8 Medica l .8 Branch 2022-12-30 2022-12-30 Telephone Chris Brown 1.2.840.2 [id number] Univers 00:00:00 00:00:00 95562.1.1 ity of 3.104.2.7 [place] .3.609168 Medica l .8 [place] 2022-12-20 2022-12-20 Travel 1.2.840.1 1.2.024.897 [id number] Univers 00:00:00 00:00:00 66696.1.1 350.1.13.10 ity of 3.104.2.7 4.[place]7.3.698 [place] .3.886212 084.8 Medica l .8 Branch 2022-11-29 2022-11-30 Outpatient X BEN [facility] STX [id number] Univers 14:07:00 18:00:00 HEIDI ity of [facility] [place] 2022-11-29 2022-11-30 Emergency BillyDeniz ryan 1.2.840.1 [id number] Univers 14:07:00 18:00:00 Heidi Lugo 44496.1.1 ity of 3.104.2.7 [place] .3.867760 Medica l .8 Branch 2022-11-29 2022-11-29 Travel 1.2.840.1 1.2.683.359 [id number] Univers 00:00:00 00:00:00 89493.1.1 350.1.13.10 ity of 3.104.2.7 4.[place]7.3.698 [place] .3.214525 084.8 Medica l .8 Branch 2022-10-22 2022-10-22 Orders Doctor CASIE 1.2.840.114 [id number] Univers 00:00:00 00:00:00 Only Unassigned, DEMI 350.1.13.10 it[place] [facility] 4.2.7.2.686 [place] as [id number] [facility] 009 Branch 2022-09-27 2022-09-27 Refdwayne Brayan [facility] 1.2.840.114 [id number] Univers 00:00:00 00:00:00 Hamza PRIMARY 350.1.13.10 it y [place] [id number] Wy dical 390 Branch 2022-09-25 2022-09-25 Orders Doctor CASIE 1.2.840.114 [id number] Univers 00:00:00 00:00:00 Only Unassigned, DEMI 350.1.13.10 it[place] of [place] [facility] 4.2.7.2.686 [place] [id number] [facility] 009 Branch 2022-09-22 2022-09-22 Patient Doctor CASIE 1.2.840.114 [id number] Univers 00:00:00 00:00:00 Secure Msg Unassigned, DEMI 350.1.13.10 ity of [place] [facility] 4.2.7.2.686 [place] [id number] [facility] 019 Branch 2022-08-17 2022-08-17 Orders Doctor CASIE 1.2.840.114 [id number] Univers 00:00:00 00:00:00 Only Unassigned, DEMI 350.1.13.10 ity of [place] [facility] 4.2.7.2.686 [place] [id number] [facility] 009 Branch 2022-08-09 2022-08-09 Transition MADHU Hutchison 1.2.840.114 [id number] Univers 00:00:00 00:00:00 of Care Tessa GONZALEZ 350.1.13.10 ity of [place] 4.2.7.2.686 Saad wyman [id number] [facility] 403 [address] 2022-07-26 2022-08-07 Inpatient U MILAGROS [facility] [id number] Univers 12:58:00 11:23:00 KHANG ity of [facility] [place] [place] 2022-07-26 2022-08-07 [facility] Chris Romero 1.2.840.1 [id number] Univers 12:58:00 11:23:00 Encounter Milagros Khang 89689.1.1 ity of 3.104.2.7 [place] .3.816716 Medica l .8 Branch 2022-08-06 2022-08-[address] [facility], 1.2.840.8 [id number] Univers 14:02:30 14:02:30 Event Branden 35563.1.1 ity of 3.104.2.7 [place] .3.392440 Medica l .8 Branch 2022-08-06 2022-08-06 Travel 1.2.840.1 1.2.216.231 [id number] Univers 00:00:00 00:00:00 95646.1.1 350.1.13.10 ity of 3.104.2.7 4.[place]7.3.698 [place] .3.747668 084.8 Medica l .8 Branch 2022-07-29 2022-07-29 Case Annmarie, 1.2.840.9 [id number] Univers 00:00:00 00:00:00 Management Melvin 83950.1.1 i ty of 3.104.2.7 [place] .3.676433 Medica l .8 Branch 2022-07-28 2022-07-28 Anesthesia Darrell, 1.2.840.8 [id number] Univers 13:03:13 13:03:13 Event Yulissa Watts 63733.1.1 ity of 3.104.2.7 [place] .3.461145 Medica l .8 [place] 2022-07-26 2022-07-26 Outpatient R YFN [facility] [id number] Univers 00:00:00 00:00:00 HUNTER ity [facility] 2022-07-26 2022-07-26 Travel 1.2.840.1 1.2.806.041 [id number] Univers 00:00:00 00:00:00 74943.1.1 350.1.13.10 ity of 3.104.2.7 4[place]7.3.698 [place] .3.486053 084.8 Medica l .8 [place] 2022-07-12 2022-07-12 Outpatient R BEN [facility] [id number] Univers 11:15:00 13:52:11 [facility] 2022-07-12 Office Heidi Lugo 1.2.840.1 [id number] Univers 11:15:00 13:52:11 Visit Faculty, Surgery Transplant 27695.1.1 ity of 3.104.2.7 [place] .3.304249 Medica l .8 [place] 2022-07-12 2022-07-12 Travel 1.2.840.1 1.2.672.511 [id number] Univers 00:00:00 00:00:00 76308.1.1 350.1.13.10 ity of 3.104.2.7 [place].3.698 [place] .3.796739 084.8 Medica l .8 [place] 2022-07-09 2022-07-09 Emergency X BRITTA [facility] ERT [id number] Univers 16:28:00 22:52:00 CASIE ity [facility] 2022-07-09 2022-07-09 Emergency Casie Callejas 1.2.840.1 [id number] Univers 16:28:00 22:52:00 Jose Elias Sheikh 25002.1.1 ity of 3.104.2.7 [place] .3.724172 Medica l .8 Branch 2022-07-09 2022-07-09 Travel 1.2.840.1 1.2.571.896 [id number] Univers 00:00:00 00:00:00 10932.1.1 350.1.13.10 ity of 3.104.2.7 4[place].3.698 [place] .3.260975 084.8 Medica l .8 [place] 2022-06-29 2022-06-29 Transition Hutchison, 1.2.840.1 [id number] Univers 00:00:00 00:00:00 of Care Tessa 67940.1.1 i ty of 3.104.2.7 [place] .3.402359 Medica l .8 [place] 2022-06-17 2022-06-27 [facility] Yoni Mckee 1.2.840.1 10 [id number] Univers 14:25:00 14:20:00 Encounter Chris Romero 05973.1.1 ity of [place] 3.104.2.7 [place] .3.367790 Medica l .8 Branch 2022-06-17 2022-06-27 Inpatient X [facility] [id number] Univers 14:25:00 14:20:00 HEATH ity of [facility] [place] 2022-06-25 2022-06-25 Anesthesia Gomez Hui 1.2.840.9 [id number] Univers 09:41:00 13:15:00 Event Yulissa Ramírez 08159.1.1 ity of 3.104.2.7 [place] .3.344372 Medica l .8 Branch 2022-06-24 2022-06-[address] [facility] [id number] 00:00:00 00:00:00 Only Nuvia [facility] 2022-06-23 2022-06-23 Anesthesia Ayan 1.2.840.3 [id number] Univers 09:51:00 11:14:00 Event Larisa 30100.1.1 [place] .3.376571 Medica l .8 [place] 2022-06-23 2022-06-23 Surgery Parupudi, 1.2.840.7 [id number] Univers 07:00:00 08:24:00 Goran 21739.1.1 ity of 3.104.2.7 [place] .3.392473 Medica l .8 Branch 2022-06-17 2022-06-17 Travel 1.2.840.1 1.2.083.827 [id number] Univers 00:00:00 00:00:00 34141.1.1 350.1.13.10 ity of 3.104.2.7 [place].3.698 [place] .3.920433 084.8 Medica l .8 Branch 2022-06-07 2022-06-09 Inpatient [facility] [id number] SLE 16:25:00 13:05:00 2022-06-07 2022-06-09 [facility] Casie Johnson [facility] [id number] 16:25:00 13:05:00 Encounter [facility] 2022-05-31 2022-05-31 Documentat Rohit [facility] [id number] [facility] 00:00:00 00:00:00 ion [facility] 2022-05-14 2022-05-19 Inpatient ER MIGUEL VELÁSQUEZ Inter Rad [id number] SLE 23:13:00 18:01:00 GENARO 2022-05-14 2022-05-19 Hospital ER Ayo Price [facility] [id number] [facility] 23:13:00 18:01:00 [facility]22-[facility]-09 2022-05-11 Inpatient UR [facility] Gastro [id number] SLE 13:34:00 16:33:00 SANDRA 2022-05-09 2022-05-11 [facility] Yue Hurt [facility] [id number] [facility] 13:34:00 16:33:00 Encounter [facility]22-05-10 2022-05-10 Anesthesia David Michael [facility] [id number] [facility] 08:25:00 10:25:00 Event [facility] 2022-05-10 2022-05-10 Surgery Fam, [facility] [id number] 08:00:00 09:14:00 [facility] 2022-01-07 2022-01-07 [id number] [facility] 14:41:00 14:41:00 Ashvin Ward [facility] 2020-10-25 2020-10-25 Outpatient GC_SEFP_Riv PRIV PRIV 197 [id number] [facility] 00:00:00 00:00:00 era_A [id number] Medica l 2018-10-23 2018-10-23 [facility] 23 [id number] Common 09:00:00 09:00:00 [facility] 2018-09-06 2018-09-06 [facility] 23 [id number] Common 16:13:00 16:13:00 [facility] 2018-08-23 2018-08-23 [facility] 23 [id number] Common 14:30:00 14:30:00 t [facility] - [facility] 2018-08-22 2018-08-22 [facility] 23 [id number] Common 15:00:00 15:00:00 t [facility] - [facility] Results Test Description Test Time Test Comments Results Result Comments Source SPUTUM CULTURE 2023-02-21 18:11:30 Test Item Value Reference Range Interpretation Comme nts SPUTUM CULTURE (test code = 622-1) 1+ Respiratory kinza: Commensal upper respiratory microorganisms only. Gram stain (test code = 664-3) Occasional (Rare) Epithelial cells JUAN DAVID (test code = JUAN DAVID) Bacterial pathogens associated with lower respiratory infections were not identified, which include Pseudomonas aeruginosa and Staphylococcus aureus (MRSA or MSSA). [facility] [id number] 18:11:30 Test Item Value Reference Range Interpretation Comments SPUTUM CULTURE 1+ Respiratory kinza: (test code = 622-1) Commensal upper respiratory microorganisms only. Gram stain (test Occasional (Rare) code = 664-3) Epithelial cells JUAN DAVID (test code = Bacterial pathogens JUAN DAVID) associated with lower respiratory infections were not identified, which include Pseudomonas aeruginosa and Staphylococcus aureus (MRSA or MSSA). [facility] [id number] 18:11:30 Test Item Value Reference Range Interpretation Comments SPUTUM CULTURE 1+ Respiratory kinza: (test code = 622-1) Commensal upper respiratory microorganisms only. Gram stain (test Occasional (Rare) code = 664-3) Epithelial cells JUAN DAVID (test code = Bacterial pathogens JUAN DAVID) associated with lower respiratory infections were not identified, which include Pseudomonas aeruginosa and Staphylococcus aureus (MRSA or MSSA). [facility] WITH [id number] 07:57:50 Test Item Value Reference Range Interpretation Comments WBC (test code = 3.55 See_Comment L [Automated 5890-2) message] The sy stem which generated this result transmitted reference range : 4.20 - 10.70 10*3/?L. The reference range was not used to interpret this result as normal/abnormal . RBC (test code = 3.19 See_Comment L [Automated 969-8) message] The sy stem which generated this result transmitted reference range : 4.26 - 5.52 10*6/?L. The reference range was not used to interpret this result as normal/abnormal . HGB (test code = 9.3 g/dL 12.2-16.4 L 718-7) HCT (test code = 27.9 % 38.4-49.3 L 4544-3) MCV (test code = 87.5 fL 81.7-95.6 787-2) MCH (test code = 29.2 pg 26.1-32.7 785-6) MCHC (test code = 33.3 g/dL 31.2-35.0 786-4) RDW-SD (test code = 43.3 fL 38.5-51.6 80452-1) RDW-CV (test code = 13.6 % 12.1-15.4 788-0) PLT (test code = 113 See_Comment L [Automated 777-3) message] The sy stem which generated this result transmitted reference range : 150 - 328 10*3/ ?L. The reference r helen was not used to interpret this result as normal/abnormal . MPV (test code = 11.6 fL 9.8-13.0 35467-1) IPF % (test code = 7.5 % 1.2-10.7 Platelet count [id number]) measured by fluorescence method. NRBC/100 WBC (test 0.0 See_Comment [Automat ed code = 1637687063) message] The system which generated this result transmitted reference range : 0.0 - 10.0 /100 WBCs. The refer ence range was not u sed to interpret th is result as normal/abnormal . NRBC x10^3 (test code See_Comment [Auto mated = 7265514478) message] The s ystem which generated this result transmitted reference range : 10*3/?L. The reference range was not used to interpret this result as normal/abnormal . GRAN MAT (NEUT) % 78.0 % (test code = 770-8) IMM GRAN % (test code 0.60 % = 0309469722) LYMPH % (test code = 13.5 % 736-9) MONO % (test code = 7.9 % 5905-5) EOS % (test code = 0.0 % 713-8) BASO % (test code = 0.0 % 706-2) GRAN MAT x10^3(ANC) 2.77 10*3/uL 1.99-6.95 (test code = 5612194037) IMM GRAN x10^3 (test 0.00-0.06 code = 3542324673) LYMPH x10^3 (test code 0.48 10*3/uL 1.09-3.23 L = 731-0) MONO x10^3 (test code 0.28 10*3/uL 0.36-1.02 L = 742-7) EOS x10^3 (test code = 0.06-0.53 L 711-2) BASO x10^3 (test code 0.01-0.09 = 704-7) Lab Interpretation Abnormal (test code = 47949-3) [facility] WITH [id number] 07:57:50 Test Item Value Reference Range Interpretation Comments WBC (test code = 3.55 See_Comment L [Automated 6690-2) message] The sy stem which generated this result transmitted reference range : 4.20 - 10.70 10*3/?L. The reference range was not used to interpret this result as normal/abnormal . RBC (test code = 3.19 See_Comment L [Automated 789-8) message] The sy stem which generated this result transmitted reference range : 4.26 - 5.52 10*6/?L. The reference range was not used to interpret this result as normal/abnormal . HGB (test code = 9.3 g/dL 12.2-16.4 L 718-7) HCT (test code = 27.9 % 38.4-49.3 L 4544-3) MCV (test code = 87.5 fL 81.7-95.6 787-2) MCH (test code = 29.2 pg 26.1-32.7 785-6) MCHC (test code = 33.3 g/dL 31.2-35.0 786-4) RDW-SD (test code = 43.3 fL 38.5-51.6 01355-0) RDW-CV (test code = 13.6 % 12.1-15.4 788-0) PLT (test code = 113 See_Comment L [Automated 777-3) message] The sy stem which generated this result transmitted reference range : 150 - 328 10*3/ ?L. The reference r helen was not used to interpret this result as normal/abnormal . MPV (test code = 11.6 fL 9.8-13.0 93223-0) IPF % (test code = 7.5 % 1.2-10.7 Platelet count 2706346526) measured by fluorescence method. NRBC/100 WBC (test 0.0 See_Comment [Automat ed code = 4317677491) message] The system which generated this result transmitted reference range : 0.0 - 10.0 /100 WBCs. The refer ence range was not u sed to interpret th is result as normal/abnormal . NRBC x10^3 (test code See_Comment [Auto mated = 0159217965) message] The s ystem which generated this result transmitted reference range : 10*3/?L. The reference range was not used to interpret this result as normal/abnormal . GRAN MAT (NEUT) % 78.0 % (test code = 770-8) IMM GRAN % (test code 0.60 % = 4586452153) LYMPH % (test code = 13.5 % 736-9) MONO % (test code = 7.9 % 5905-5) EOS % (test code = 0.0 % 713-8) BASO % (test code = 0.0 % 706-2) GRAN MAT x10^3(ANC) 2.77 10*3/uL 1.99-6.95 (test code = 3470697830) IMM GRAN x10^3 (test 0.00-0.06 code = 9681029796) LYMPH x10^3 (test code 0.48 10*3/uL 1.09-3.23 L = 731-0) MONO x10^3 (test code 0.28 10*3/uL 0.36-1.02 L = 742-7) EOS x10^3 (test code = 0.06-0.53 L 711-2) BASO x10^3 (test code 0.01-0.09 = 704-7) Lab Interpretation Abnormal (test code = 90735-7) [facility]27 Test Item Value Reference Range Interpretation Comments MAGNESIUM (test code = 0714445367) 1.8 mg/dL 1.7-2.4 Lab Interpretation (test code = Normal 20091-5) [facility] (NA, K, CL, CO2, GLUCOSE, BUN, CREATININE, CA)2023-02-20 07:40:27 Test Item Value Reference Range Interpretation Comments NA (test code = 127 mmol/L 135-145 L 5027406142) K (test code = 4.1 mmol/L 3.5-5.0 0091116924) CL (test code = 94 mmol/L 98-108 L 6408089289) CO2 TOTAL (test code = 25 mmol/L 23-31 8470130530) AGAP (test code = 8 2-16 6473112208) BUN (test code = 10 mg/dL 7-23 9020760926) GLUCOSE (test code = 106 mg/dL 70-110 9434266562) CREATININE (test code = 0.81 mg/dL 0.60-1.25 6209418467) CALCIUM (test code = 7.4 mg/dL 8.6-10.6 L 4545508076) eGFR (test code = 96.2 mL/min/1.73m2 8693609505) JUAN DAVID (test code = JUAN DAVID) [...] tests). Lab Interpretation Abnormal (test code = 47313-1) [facility]91590[facility] (ALB,T.PRO,BILI T,BU/BC,ALT,AST,ALK PHOS)2023-02-20 07:40:27 Test Item Value Reference Range Interpretation Comments TOTAL BILI (test code = 9702374476) 1.3 mg/dL 0.1-1.1 H BILI UNCON (test code = 7230247304) 0.5 mg/dL 0.1-1.1 BILI CONJ (test code = 5152660629) 0.0 mg/dL 0.0-0.3 T PROTEIN (test code = 5250924503) 5.4 g/dL 6.3-8.2 L ALBUMIN (test code = 6928335205) 2.6 g/dL 3.5-5.0 L ALK PHOS (test code = 1061211720) 339 U/L 34-122 H ALTv (test code = 1742-6) 74 U/L 5-50 H AST(SGOT) (test code = 0084897738) 95 U/L 13-40 H Lab Interpretation (test code = Abnormal 26347-2) [facility] 07:40:27 Test Item Value Reference Range Interpretation Comments MAGNESIUM (test code = 2580633870) 1.8 mg/dL 1.7-2.4 Lab Interpretation (test code = Normal 31795-3) [facility] (NA, K, CL, CO2, GLUCOSE, BUN, CREATININE, CA)2023-02-20 07:40:27 Test Item Value Reference Range Interpretation Comments NA (test code = 127 mmol/L 135-145 L 7426805230) K (test code = 4.1 mmol/L 3.5-5.0 8322568554) CL (test code = 94 mmol/L 98-108 L 1376214720) CO2 TOTAL (test code = 25 mmol/L 23-31 0206087529) AGAP (test code = 8 2-16 7413055255) BUN (test code = 10 mg/dL 7-23 8260451381) GLUCOSE (test code = 106 mg/dL 70-110 6667905597) CREATININE (test code = 0.81 mg/dL 0.60-1.25 8090506796) CALCIUM (test code = 7.4 mg/dL 8.6-10.6 L 9208675289) eGFR (test code = 96.2 mL/min/1.73m2 8243979597) JUAN DAVID (test code = JUAN DAVID) [...] tests). Lab Interpretation Abnormal (test code = 60484-1) [facility]68923[facility] (ALB,T.PRO,BILI T,BU/BC,ALT,AST,ALK PHOS)2023-02-20 07:40:27 Test Item Value Reference Range Interpretation Comments TOTAL BILI (test code = 1323651295) 1.3 mg/dL 0.1-1.1 H BILI UNCON (test code = 4445647329) 0.5 mg/dL 0.1-1.1 BILI CONJ (test code = 1532158418) 0.0 mg/dL 0.0-0.3 T PROTEIN (test code = 8215434737) 5.4 g/dL 6.3-8.2 L ALBUMIN (test code = 8389146294) 2.6 g/dL 3.5-5.0 L ALK PHOS (test code = 9921957439) 339 U/L 34-122 H ALTv (test code = 1742-6) 74 U/L 5-50 H AST(SGOT) (test code = 9360989988) 95 U/L 13-40 H Lab Interpretation (test code = Abnormal 09172-3) [facility] WITH [id number] 22:35:27 Test Item Value Reference Range Interpretation Comments WBC (test code = 5.42 See_Comment [Automated 6690-2) message] The sy stem which generated this result transmitted reference range : 4.20 - 10.70 10*3/?L. The reference range was not used to interpret this result as normal/abnormal . RBC (test code = 4.83 See_Comment [Automated 789-8) message] The sy stem which generated this result transmitted reference range : 4.26 - 5.52 10*6/?L. The reference range was not used to interpret this result as normal/abnormal . HGB (test code = 14.4 g/dL 12.2-16.4 718-7) HCT (test code = 42.1 % 38.4-49.3 4544-3) MCV (test code = 87.2 fL 81.7-95.6 787-2) MCH (test code = 29.8 pg 26.1-32.7 785-6) MCHC (test code = 34.2 g/dL 31.2-35.0 786-4) RDW-SD (test code = 40.7 fL 38.5-51.6 40455-4) RDW-CV (test code = 12.8 % 12.1-15.4 788-0) PLT (test code = 147 See_Comment L [Automated 777-3) message] The sy stem which generated this result transmitted reference range : 150 - 328 10*3/ ?L. The reference r helen was not used to interpret this result as normal/abnormal . MPV (test code = 10.3 fL 9.8-13.0 26691-2) NRBC/100 WBC (test 0.0 See_Comment [Automat ed code = 5884047434) message] The system which generated this result transmitted reference range : 0.0 - 10.0 /100 WBCs. The refer ence range was not u sed to interpret th is result as normal/abnormal . NRBC x10^3 (test code See_Comment [Auto mated = 8878828816) message] The s ystem which generated this result transmitted reference range : 10*3/?L. The reference range was not used to interpret this result as normal/abnormal . GRAN MAT (NEUT) % 54.7 % (test code = 770-8) IMM GRAN % (test code 0.90 % = 7532528980) LYMPH % (test code = 35.1 % 736-9) MONO % (test code = 7.7 % 5905-5) EOS % (test code = 0.9 % 713-8) BASO % (test code = 0.7 % 706-2) GRAN MAT x10^3(ANC) 2.96 10*3/uL 1.99-6.95 (test code = 8181634581) IMM GRAN x10^3 (test 0.05 10*3/uL 0.00-0.06 code = 4155156267) LYMPH x10^3 (test code 1.90 10*3/uL 1.09-3.23 = 731-0) MONO x10^3 (test code 0.42 10*3/uL 0.36-1.02 = 742-7) EOS x10^3 (test code = 0.05 10*3/uL 0.06-0.53 L 711-2) BASO x10^3 (test code 0.04 10*3/uL 0.01-0.09 = 704-7) Lab Interpretation Abnormal (test code = 81170-5) [facility] (90392)2022-11-29 22:31:04 Test Item Value Reference Range Interpretation Comments NA (test code = 139 mmol/L 135-145 3217494884) K (test code = 4.2 mmol/L 3.5-5.0 8751920460) CL (test code = 105 mmol/L 98-108 9490812428) CO2 TOTAL (test code = 25 mmol/L 23-31 0979935981) AGAP (test code = 9 2-16 9967276657) BUN (test code = 16 mg/dL 7-23 1835054306) GLUCOSE (test code = 83 mg/dL 70-110 7131289791) CREATININE (test code = 0.98 mg/dL 0.60-1.25 7296546338) TOTAL BILI (test code = 0.5 mg/dL 0.1-1.5 1191243825) CALCIUM (test code = 8.8 mg/dL 8.6-10.6 1394191667) T PROTEIN (test code = 6.7 g/dL 6.3-8.2 5096873850) ALBUMIN (test code = 4.2 g/dL 3.5-5.0 8785885857) ALK PHOS (test code = 434 U/L 34-122 H 5205854182) ALTv (test code = 101 U/L 5-50 H 1742-6) AST(SGOT) (test code = 85 U/L 13-40 H 3759699308) eGFR (test code = 77.5 mL/min/1.73m2 4972412141) JUAN DAVID (test code = JUAN DAVID) [...] tests). Lab Interpretation Abnormal (test code = 53516-0) [facility], [id number] 22:39:00 [facility] : 1960 Sex: MFINAL REPORT Patient: Carrol Anne DDOB: 1960MRN: [id number] Accession number: [id number] CT, ABDOMEN \\T\\ PELVIS, WITH IV CONTRAST [...] collection. 4.Cholecystectomy with biliary stent. Signed: Yaquelin Osorio Verified Date/Time: 09/14/2022 22:39:56 Electronically signed by: YAQUELIN OSORIO MD on 310:39 PM2D Echo W/Doppler(CW/PW/Color)2022-09-01 10:41:09Ejection FractionSLEH ECHO [facility] W[facility]Doppler(CW/PW/Color) 2022-09-01 10:41:09Ejection FractionSLEH [facility]CHO [facility] W/Doppler(CW/PW/Color)2022-09-01 10:41:09Ejection [facility]SLEH [facility]Doppler(CW/PW/Color)2022-09-01 10:41:09[facility] 2022-08-02 23:45:12 Test Item Value Reference Interpretation Comments Range SARS-COV2/RT-PCR Negative Negative The SARS-Co V-2 (test code = target nucleic 40134-1) acids are not detected in thi s [...] (test code = [place] 24460-6) not detected in this specimen. Influenza B RT-PCR Negative Negative The Flu B target (test code = [place] 85827-7) not detected in this specimen. RSV by RT-PCR (test Negative Negative The RSV target code = 41935-2) nucleic acid s are not detected in [...] SARS-CoV-2/Flu/RSV by their healthcare provider. Results from [facility] Xpert Xpress SARS-CoV-2/Flu/RSV test should be [...] the Act. Fact Sheet for Healthcare Providers:https://w [employer]/Docu ments/Xpert%20Xpres s%20SARS%20CoV-2/Fa ct%20Sheets/302-390 2%69VYPN-RJC-8%20HE ALTHCARE%20PROVIDER S%20FACT%20SHEET.pd f Fact Sheet for Healthcare Patients:https://ww [employer]/Docum ents/Xpert%20Xpress %20SARS%20Cov-2/Fac t%20Sheets/302-3801 %22XBHS-CGZ-6%20PAT IENT%20FACT%20SHEET .pdfThe presence of SARS-CoV-2/FLU/RSV viral nucleic [...] the Act. Fact Sheet for Healthcare Providers:https://w [employer]/Docu ments/Xpert%20Xpres s%20SARS%20CoV-2/Fa ct%20Sheets/302-390 2%27IGGB-JLA-3%20HE ALTHCARE%20PROVIDER S%20FACT%20SHEET.pd f Fact Sheet for Healthcare Patients:https://ww [employer]/Docum ents/Xpert%20Xpress %20SARS%20Cov-2/Fac t%20Sheets/302-3801 %29APWY-OXF-0%20PAT IENT%20FACT%20SHEET .pdf Lab Interpretation Normal (test code = 35264-7) [facility] [id number] 23:45:12 Test Item Value Reference Interpretation Comments Range SARS-COV2/RT-PCR Negative Negative The SARS-Co V-2 (test code = target nucleic 32861-8) acids are not detected in thi s [...] (test code = [place] 75594-5) not detected in this specimen. Influenza B RT-PCR Negative Negative The Flu B target (test code = [place] re 35524-9) not detected in this specimen. RSV by RT-PCR (test Negative Negative The RSV target code = 17308-0) nucleic acid s are not detected in [...] the Act. Fact Sheet for Healthcare Providers:https://w [employer]/Docu ments/Xpert%20Xpres s%20SARS%20CoV-2/Fa ct%20Sheets/302-390 2%83KFPH-SSP-6%20HE ALTHCARE%20PROVIDER S%20FACT%20SHEET.pd f Fact Sheet for Healthcare Patients:https://jyoti [employer]/Docum ents/Xpert%20Xpress %20SARS%20Cov-2/Fac t%20Sheets/302-3801 %95KYNB-KAP-2%20PAT IENT%20FACT%20SHEET .pdfThe presence of SARS-CoV-2/FLU/RSV viral nucleic [...] the Act. Fact Sheet for Healthcare Providers:https://w [employer]/Docu ments/Xpert%20Xpres s%20SARS%20CoV-2/Fa ct%20Sheets/302-390 2%79OBMA-NZO-3%20HE ALTHCARE%20PROVIDER S%20FACT%20SHEET.pd f Fact Sheet for Healthcare Patients:https://ww w.[employer]/Docum ents/Xpert%20Xpress %20SARS%20Cov-2/Fac t%20Sheets/302-3801 %98VAXM-WNV-5%20PAT IENT%20FACT%20SHEET .pdf Lab Interpretation Normal (test code = 20243-5) [facility]V [id number] 23:45:12 Test Item Value Reference Interpretation Comments Range SARS-COV2/RT-PCR Negative Negative The SARS-Co V-2 (test code = target nucleic 30369-6) acids are not detected in thi s [...] (test code = [place] re 21289-6) not detected in this specimen. Influenza B RT-PCR Negative Negative The Flu B target (test code = [place] re 43180-7) not detected in this specimen. RSV by RT-PCR (test Negative Negative The RSV target code = 68494-9) nucleic acid s are not detected in [...] the Act. Fact Sheet for Healthcare Providers:https://w [employer]/Docu ments/Xpert%20Xpres s%20SARS%20CoV-2/Fa ct%20Sheets/302-390 2%49TPKW-ILA-5%20HE ALTHCARE%20PROVIDER S%20FACT%20SHEET.pd f Fact Sheet for Healthcare Patients:https://[employer]/Docum ents/Xpert%20Xpress %20SARS%20Cov-2/Fac t%20Sheets/302-3801 %15NILA-DFJ-8%20PAT IENT%20FACT%20SHEET .pdfThe presence of SARS-CoV-2/FLU/RSV viral nucleic [...] SARS-CoV-2/Flu/RSV by their healthcare provider. Results from [facility] Xpert Xpress SARS-CoV-2/Flu/RSV test should be [...] the Act. Fact Sheet for Healthcare Providers:https://w [employer]/Docu ments/Xpert%20Xpres s%20SARS%20CoV-2/Fa ct%20Sheets/302-390 2%77JHIF-MLQ-9%20HE ALTHCARE%20PROVIDER S%20FACT%20SHEET.pd f Fact Sheet for Healthcare Patients:https://[employer]/Docum ents/Xpert%20Xpress %20SARS%20Cov-2/Fac t%20Sheets/302-3801 %85KYBK-BNL-7%20PAT IENT%20FACT%20SHEET .pdf Lab Interpretation Normal (test code = 97478-7) [facility]RSV [id number] 23:45:12 Test Item Value Reference Interpretation Comments Range SARS-COV2/RT-PCR Negative Negative The SARS-Co V-2 (test code = target nucleic 27450-8) acids are not detected in thi s [...] (test code = [place] [address]9828-9) not detected in this specimen. Influenza B RT-PCR Negative Negative The Flu B target (test code = [place] re 89501-9) not detected in this specimen. RSV by RT-PCR (test Negative Negative The RSV target code = 26010-4) nucleic acid s are not detected in [...] SARS-CoV-2/Flu/RSV by their healthcare provider. Results from [facility] Xpert Xpress SARS-CoV-2/Flu/RSV test should be [...] the Act. Fact Sheet for Healthcare Providers:https://w [employer]/Docu ments/Xpert%20Xpres s%20SARS%20CoV-2/Fa ct%20Sheets/302-390 2%12PCYG-JCT-0%20HE ALTHCARE%20PROVIDER S%20FACT%20SHEET.pd f Fact Sheet for Healthcare Patients:https://[employer]/Docum ents/Xpert%20Xpress %20SARS%20Cov-2/Fac t%20Sheets/302-3801 %38TWKL-AEZ-3%20PAT IENT%20FACT%20SHEET .pdfThe presence of SARS-CoV-2/FLU/RSV viral nucleic [...] the Act. Fact Sheet for Healthcare Providers:https://w [employer]/Docu ments/Xpert%20Xpres s%20SARS%20CoV-2/Fa ct%20Sheets/302-390 2%34RDFD-JTS-5%20HE ALTHCARE%20PROVIDER S%20FACT%20SHEET.pd f Fact Sheet for Healthcare Patients:https://[employer]/Docum ents/Xpert%20Xpress %20SARS%20Cov-2/Fac t%20Sheets/302-3801 %97FROC-DFN-7%20PAT IENT%20FACT%20SHEET .pdf Lab Interpretation Normal (test code = 04484-7) [facility]/INFLUENZA/RSV [id number] 23:45:12 Test Item Value Reference Range Interpretation Comments SARS-COV2/RT-PCR Negative Negative The SARS-Co V-2 target (test code = nucleic acids a re not 2997849) detected in thi s specimen. Negat prince [...] individuals una pected of COVID-19 by the [facility] ide. INFLUENZA A RT-PCR Negative Negative The Flu A target nucleic (test code = acids are not d etected in 19101009) this specimen. INFLUENZA B RT-PCR Negative Negative The Flu B target nucleic (test code = acids are not d etected in 19101010) this specimen. RSV RT-PCR (test Negative Negative The RSV tar get nucleic code = 2488975) acids are no t detected in this [...] Xpress SARS-CoV-2/Flu/RSV by their healthcareprovider. Results from [facility] Xpert Xpress SARS-CoV-2/Flu/RSV test [...] of the Act.Fact Sheet for Healthcare Providers:https ://www.[employer]/Documents/Xpert%20Xpress%20SARS%20CoV-2/Fact%20Sheets/302-390 2%94EBKJ-AKS-5%20HEALTHCARE%20PROVIDERS%20FACT%20SHEET.pdfFact Sheet for Healthcare Patients:https://www.[employer]/Docum ents/Xpert%20Xpress%20SARS%20Cov-2/Fact%20Sheets/302-3801%41CLKJ-MWQ-6%20PATIENT %20FACT%20SHEET.pdfThe presence of SARS-CoV-2/FLU/RSV viral nucleic acids [...] SARS-CoV-2/Flu/RSV by their healthcare provider. Results from [facility] Xpert Xpress SARS-CoV-2/Flu/RSV test should be [...] of the Act.Fact Sheet for Healthcare Providers:https:/ /www.[employer]/Documents/Xpert%20Xpress%20SARS%20CoV-2/Fact%20Sheets/3023902% 68NHLS-USL-2%20HEALTHCARE%20PROVIDERS%20FACT%20SHEET.pdfFact Sheet for Healthcare Patients:https://www.[employer]Box/Documen ts/Xpert%20Xpress%20SARS%20Cov-2/Fact%20Sheets/3023801%25RIVJ-WTZ-1%20PATIENT%2 0FACT%20SHEET.pdfLactic Acid Whole [id number] 12:44:43 Test Item Value Reference Range Interpretation Comments LACTIC ACID (test code = 1.06 mmol/L 0.50-2.20 5481697709) Lab Interpretation (test code = Normal 62995-7) [facility] Acid Whole [id number] 12:44:43 Test Item Value Reference Range Interpretation Comments LACTIC ACID (test code = 1.06 mmol/L 0.50-2.20 [id number]) Lab Interpretation (test code = Normal 99830-8) [facility] Whole Axpon1824-52-25 12:44:43 Test Item Value Reference Range Interpretation Comments LACTIC ACID (test code = 1.06 mmol/L 0.50-2.20 [id number]) Lab Interpretation (test code = Normal 41350-7) [facility] Acid Whole [id number] 12:44:43 Test Item Value Reference Range Interpretation Comments LACTIC ACID (test code = 1.06 mmol/L 0.50-2.20 [id number]) Lab Interpretation (test code = Normal 43766-2) [facility] Acid Whole [id number] 12:44:43 Test Item Value Reference Range Interpretation Comments LACTIC ACID (test code = 1.06 mmol/L 0.50-2.20 [id number]) Lab Interpretation (test code = Normal 54358-9) [facility] WITH APTR1728-11-21 11:48:54 Test Item Value Reference Range Interpretation Comments WBC (test code = See_Comment [Automated 9990-2) message] The sy stem which generated this result transmitted reference range : 4.20 - 10.70 10*3/?L. The reference range was not used to interpret this result as normal/abnormal . RBC (test code = See_Comment [Automated 609-8) message] The sy stem which generated this [...] RDW-SD (test code = 39.4 fL 38.5-51.6 56424-1) RDW-CV (test code = 13.0 % 12.1-15.4 788-0) PLT (test code = See_Comment L [Automated 777-3) message] The sy stem which generated this result transmitted reference range : 150 - 328 10*3/ ?L. The reference r helen was not used to interpret this result as normal/abnormal . MPV (test code = 10.1 fL 9.8-13.0 37945-0) IPF % (test code = 4.1 % 1.2-10.7 Platelet count 9469758134) measured by fluorescence method. NRBC/100 WBC (test See_Comment [Automat ed code = 7184188817) message] The system which generated this result transmitted reference range : 0.0 - 10.0 /100 WBCs. The refer ence range was not u sed to interpret th is result as normal/abnormal . NRBC x10^3 (test code See_Comment [Auto mated = 6474694200) message] The s ystem which generated this result transmitted reference range : 10*3/?L. The reference range was not used to interpret this result as normal/abnormal . GRAN MAT (NEUT) % 77.2 % (test code = 770-8) IMM GRAN % (test code 0.30 % = 9525296237) LYMPH % (test code = 10.5 % 736-9) MONO % (test code = 11.4 % 5905-5) EOS % (test code = 0.3 % 713-8) BASO % (test code = 0.3 % 706-2) GRAN MAT x10^3(ANC) 5.64 10*3/uL 1.99-6.95 (test code = 3775500168) IMM GRAN x10^3 (test 0.00-0.06 code = 4083322423) LYMPH x10^3 (test code 0.77 10*3/uL 1.09-3.23 L = 731-0) MONO x10^3 (test code 0.83 10*3/uL 0.36-1.02 = 742-7) EOS x10^3 (test code = 0.06-0.53 L 711-2) BASO x10^3 (test code 0.01-0.09 = 704-7) BANDS (test code = Increased A 2826130375) Lab Interpretation Abnormal (test code = 38160-7) [facility] WITH [id number] 11:48:54 Test Item Value Reference Range Interpretation Comments WBC (test code = See_Comment [Automated 6690-2) message] The sy stem which generated this result transmitted reference range : 4.20 - 10.70 10*3/?L. The reference range was not used to interpret this result as normal/abnormal . RBC (test code = See_Comment [Automated 259-8) message] The sy stem which generated this [...] RDW-SD (test code = 39.4 fL 38.5-51.6 03467-5) RDW-CV (test code = 13.0 % 12.1-15.4 788-0) PLT (test code = See_Comment L [Automated 777-3) message] The sy stem which generated this result transmitted reference range : 150 - 328 10*3/ ?L. The reference r helen was not used to interpret this result as normal/abnormal . MPV (test code = 10.1 fL 9.8-13.0 22607-5) IPF % (test code = 4.1 % 1.2-10.7 Platelet count 1111079996) measured by fluorescence method. NRBC/100 WBC (test See_Comment [Automat ed code = 4746326388) message] The system which generated this result transmitted reference range : 0.0 - 10.0 /100 WBCs. The refer ence range was not u sed to interpret th is result as normal/abnormal . NRBC x10^3 (test code See_Comment [Auto mated = 2918793847) message] The s ystem which generated this result transmitted reference range : 10*3/?L. The reference range was not used to interpret this result as normal/abnormal . GRAN MAT (NEUT) % 77.2 % (test code = 770-8) IMM GRAN % (test code 0.30 % = 4686530576) LYMPH % (test code = 10.5 % 736-9) MONO % (test code = 11.4 % 5905-5) EOS % (test code = 0.3 % 713-8) BASO % (test code = 0.3 % 706-2) GRAN MAT x10^3(ANC) 5.64 10*3/uL 1.99-6.95 (test code = 9596161362) IMM GRAN x10^3 (test 0.00-0.06 code = 5864910254) LYMPH x10^3 (test code 0.77 10*3/uL 1.09-3.23 L = 731-0) MONO x10^3 (test code 0.83 10*3/uL 0.36-1.02 = 742-7) EOS x10^3 (test code = 0.06-0.53 L 711-2) BASO x10^3 (test code 0.01-0.09 = 704-7) BANDS (test code = Increased A 6807519313) Lab Interpretation Abnormal (test code = 67277-0) [facility] Test Item Value Reference Range Interpretation Comments MAGNESIUM (test code = 5075902557) 1.8 mg/dL 1.7-2.4 Lab Interpretation (test code = Normal 34802-5) [facility] (ALB,T.PRO,BILI T,BU/BC,ALT,AST,ALK PHOS)2022-07-29 11:41:40 Test Item Value Reference Range Interpretation Comments TOTAL BILI (test code = 2668833410) 0.7 mg/dL 0.1-1.1 BILI UNCON (test code = 9989077142) 0.3 mg/dL 0.1-1.1 BILI CONJ (test code = 2531767266) 0.0 mg/dL 0.0-0.3 T PROTEIN (test code = 9667444339) 5.7 g/dL 6.3-8.2 L ALBUMIN (test code = 8201715735) 3.3 g/dL 3.5-5.0 L ALK PHOS (test code = 7118073389) 228 U/L 34-122 H ALTv (test code = 1742-6) 41 U/L 5-50 AST(SGOT) (test code = 8076963217) 39 U/L 13-40 Lab Interpretation (test code = Abnormal 40934-0) [facility] (NA, K, CL, CO2, GLUCOSE, BUN, CREATININE, CA)2022-07-29 11:41:40 Test Item Value Reference Range Interpretation Comments NA (test code = 132 mmol/L 135-145 L 0376566103) K (test code = 3.4 mmol/L 3.5-5.0 L 9204192534) CL (test code = 94 mmol/L 98-108 L 8592860327) CO2 TOTAL (test code = 30 mmol/L 23-31 9518265487) AGAP (test code = 2-16 1138378119) BUN (test code = 11 mg/dL 7-23 3167871906) GLUCOSE (test code = 95 mg/dL 70-110 7824411202) CREATININE (test code = 0.70 mg/dL 0.60-1.25 8688530239) CALCIUM (test code = 8.3 mg/dL 8.6-10.6 L 0178815333) eGFR (test code = mL/min/1.73m2 8479568341) JUAN DAVID (test code = JUAN DAVID) [...] tests). Lab Interpretation Abnormal (test code = 83103-3) [facility] 11:41:40 Test Item Value Reference Range Interpretation Comments MAGNESIUM (test code = 9918734613) 1.8 mg/dL 1.7-2.4 Lab Interpretation (test code = Normal 86603-3) [facility] (55650[facility] (ALB,T.PRO,BILI T,BU/BC,ALT,AST,ALK PHOS)2022-07-29 11:41:40 Test Item Value Reference Range Interpretation Comments TOTAL BILI (test code = 5816563373) 0.7 mg/dL 0.1-1.1 BILI UNCON (test code = 8770164337) 0.3 mg/dL 0.1-1.1 BILI CONJ (test code = 2545482773) 0.0 mg/dL 0.0-0.3 T PROTEIN (test code = 5211248608) 5.7 g/dL 6.3-8.2 L ALBUMIN (test code = 0794818578) 3.3 g/dL 3.5-5.0 L ALK PHOS (test code = 4725240840) 228 U/L 34-122 H ALTv (test code = 1742-6) 41 U/L 5-50 AST(SGOT) (test code = 5486325080) 39 U/L 13-40 Lab Interpretation (test code = Abnormal 83172-0) [facility]2022-11-24 11:41:40 Test Item Value Reference Range Interpretation Comments MAGNESIUM (test code = 0288613676) 1.8 mg/dL 1.7-2.4 Lab Interpretation (test code = Normal 75201-7) [facility]85184[facility] (ALB,T.PRO,BILI T,BU/BC,ALT,AST,ALK PHOS)2022-07-29 11:41:40 Test Item Value Reference Range Interpretation Comments TOTAL BILI (test code = 3467769490) 0.7 mg/dL 0.1-1.1 BILI UNCON (test code = 5860677127) 0.3 mg/dL 0.1-1.1 BILI CONJ (test code = 0141585273) 0.0 mg/dL 0.0-0.3 T PROTEIN (test code = 7091849022) 5.7 g/dL 6.3-8.2 L ALBUMIN (test code = 2453152917) 3.3 g/dL 3.5-5.0 L ALK PHOS (test code = 5922153816) 228 U/L 34-122 H ALTv (test code = 1742-6) 41 U/L 5-50 AST(SGOT) (test code = 5589277630) 39 U/L 13-40 Lab Interpretation (test code = Abnormal 23237-5) [facility] 11:41:40 Test Item Value Reference Range Interpretation Comments MAGNESIUM (test code = 9274084851) 1.8 mg/dL 1.7-2.4 Lab Interpretation (test code = Normal 06658-7) [facility] (78464[facility] (ALB,T.PRO,BILI T,BU/BC,ALT,AST,ALK PHOS)2022-07-29 11:41:40 Test Item Value Reference Range Interpretation Comments TOTAL BILI (test code = 3948073439) 0.7 mg/dL 0.1-1.1 BILI UNCON (test code = 5507018261) 0.3 mg/dL 0.1-1.1 BILI CONJ (test code = 7115428123) 0.0 mg/dL 0.0-0.3 T PROTEIN (test code = 9439347082) 5.7 g/dL 6.3-8.2 L ALBUMIN (test code = 7800862084) 3.3 g/dL 3.5-5.0 L ALK PHOS (test code = 7022194680) 228 U/L 34-122 H ALTv (test code = 1742-6) 41 U/L 5-50 AST(SGOT) (test code = 6923098120) 39 U/L 13-40 Lab Interpretation (test code = Abnormal 14514-9) [facility] (NA, K, CL, CO2, GLUCOSE, BUN, CREATININE, CA)2022-07-29 11:41:40 Test Item Value Reference Range Interpretation Comments NA (test code = 132 mmol/L 135-145 L 7738438390) K (test code = 3.4 mmol/L 3.5-5.0 L 9217992616) CL (test code = 94 mmol/L 98-108 L 2159871031) CO2 TOTAL (test code = 30 mmol/L 23-31 3657581220) AGAP (test code = 2-16 7459477987) BUN (test code = 11 mg/dL 7-23 7266698253) GLUCOSE (test code = 95 mg/dL 70-110 7814548280) CREATININE (test code = 0.70 mg/dL 0.60-1.25 0499065219) CALCIUM (test code = 8.3 mg/dL 8.6-10.6 L 0507383928) eGFR (test code = mL/min/1.73m2 2773804388) JUAN DAVID (test code = JUAN DAVID) [...] tests). Lab Interpretation Abnormal (test code = 05953-5) [facility] 11:41:40 Test Item Value Reference Range Interpretation Comments MAGNESIUM (test code = 1372215127) 1.8 mg/dL 1.7-2.4 Lab Interpretation (test code = Normal 46776-4) [facility] (73412[facility] (ALB,T.PRO,BILI T,BU/BC,ALT,AST,ALK PHOS)2022-07-29 11:41:40 Test Item Value Reference Range Interpretation Comments TOTAL BILI (test code = 4142474334) 0.7 mg/dL 0.1-1.1 BILI UNCON (test code = 1143649357) 0.3 mg/dL 0.1-1.1 BILI CONJ (test code = 8285659982) 0.0 mg/dL 0.0-0.3 T PROTEIN (test code = 0538891399) 5.7 g/dL 6.3-8.2 L ALBUMIN (test code = 4616888098) 3.3 g/dL 3.5-5.0 L ALK PHOS (test code = 0551775549) 228 U/L 34-122 H ALTv (test code = 1742-6) 41 U/L 5-50 AST(SGOT) (test code = 1892603312) 39 U/L 13-40 Lab Interpretation (test code = Abnormal 30532-3) [facility] (01852[facility] (ALB,T.PRO,BILI T,BU/BC,ALT,AST,ALK PHOS)2022-07-29 11:41:40 Test Item Value Reference Range Interpretation Comments TOTAL BILI (test code = 4114059007) 0.7 mg/dL 0.1-1.1 BILI UNCON (test code = 0992438339) 0.3 mg/dL 0.1-1.1 BILI CONJ (test code = 0829409717) 0.0 mg/dL 0.0-0.3 T PROTEIN (test code = 8907005156) 5.7 g/dL 6.3-8.2 L ALBUMIN (test code = 3323313972) 3.3 g/dL 3.5-5.0 L ALK PHOS (test code = 4439635769) 228 U/L 34-122 H ALTv (test code = 1742-6) 41 U/L 5-50 AST(SGOT) (test code = 5552361445) 39 U/L 13-40 Lab Interpretation (test code = Abnormal 79214-2) [facility] 19:51:23 Test Item Value Reference Range Interpretation Comments LIPASE (test code = 4677741665) 562 U/L 0-220 H Lab Interpretation (test code = Abnormal 48056-6) [facility] 19:51:23 Test Item Value Reference Range Interpretation Comments LIPASE (test code = 5017560966) 562 U/L 0-220 H Lab Interpretation (test code = Abnormal 03170-1) [facility] 19:51:23 Test Item Value Reference Range Interpretation Comments LIPASE (test code = 7371352431) 562 U/L 0-220 H Lab Interpretation (test code = Abnormal 68359-0) [facility] 19:51:23 Test Item Value Reference Range Interpretation Comments LIPASE (test code = 4963510578) 562 U/L 0-220 H Lab Interpretation (test code = Abnormal 56348-9) [facility] 19:51:23 Test Item Value Reference Range Interpretation Comments LIPASE (test code = 0804845331) 562 U/L 0-220 H Lab Interpretation (test code = Abnormal 21525-8) [facility]51:23 Test Item Value Reference Range Interpretation Comments LIPASE (test code = 0980419245) 562 U/L 0-220 H Lab Interpretation (test code = Abnormal 77974-8) [facility] with Rgsmjjyuiwiq5037-32-19 09:03:27 Test Item Value Reference Range Interpretation [...] RDW-SD (test code = 41.0 fL 38.5-51.6 28214-3) RDW-CV (test code = 13.2 % 12.1-15.4 788-0) PLT (test code = See_Comment L [Automated 777-3) message] The sy stem which generated this result transmitted reference range : 150 - 328 10*3/ ?L. The reference r helen was not used to interpret this result as normal/abnormal . MPV (test code = 10.7 fL 9.8-13.0 98472-7) IPF % (test code = 3.4 % 1.2-10.7 Platelet count 1470031562) measured by fluorescence method. NRBC/100 WBC (test See_Comment [Automat ed code = 1068031153) message] The system which generated this result transmitted reference range : 0.0 - 10.0 /100 WBCs. The refer ence range was not u sed to interpret th is result as normal/abnormal . NRBC x10^3 (test code See_Comment [Auto mated = 1665163194) message] The s ystem which generated this result transmitted reference range : 10*3/?L. The reference range was not used to interpret this result as normal/abnormal . GRAN MAT (NEUT) % 78.0 % (test code = 770-8) IMM GRAN % (test code 0.20 % = 3839039281) LYMPH % (test code = 12.7 % 736-9) MONO % (test code = 8.9 % 5905-5) EOS % (test code = 0.0 % 713-8) BASO % (test code = 0.2 % 706-2) GRAN MAT x10^3(ANC) 3.75 10*3/uL 1.99-6.95 (test code = 6757113598) IMM GRAN x10^3 (test 0.00-0.06 code = 5494576774) LYMPH x10^3 (test code 0.61 10*3/uL 1.09-3.23 L = 731-0) MONO x10^3 (test code 0.43 10*3/uL 0.36-1.02 = 742-7) EOS x10^3 (test code = 0.06-0.53 L 711-2) BASO x10^3 (test code 0.01-0.09 = 704-7) Lab Interpretation Abnormal (test code = 73411-5) [facility] (18427)(TOTAL CHOLESTEROL, TRIGLYCERIDES, HDL)2022-07-27 08:49:01 Test Item Value Reference Range Interpretation Comments CHOL (test code = 108 mg/dL 120-200 L 9716770789) HDL (test code = 33 mg/dL See_Comment L [Automated message] 7141255445) The system Vysr generated this result transmit loki reference range : >=40. The refer ence range was not u sed to interpret th is result as normal/abnormal . HDLC RATIO (test code = See_Comment [Au tomated message] 5538648528) The system Vysr generated this result transmit loki reference range : <=5.0. The refe rence range was not u sed to interpret th is result as normal/abnormal . TRIG (test code = 115 mg/dL 30-170 2074235696) LDL CHOL (test code = 52 mg/dL See_Comment [Auto mated message] 50405-6) The system Vysr generated this result transmit loki reference range : <=160. The refe rence range was not u sed to interpret th is result as normal/abnormal . VLDL (test code = 23 mg/dL 5-60 7911530746) Lab Interpretation (test Abnormal code = 88068-1) [facility]44861[facility]TOTAL CHOLESTEROL, TRIGLYCERIDES, HDL)2022-07-27 08:49:01 Test Item Value Reference Range Interpretation Comments CHOL (test code = 108 mg/dL 120-200 L 8223483382) HDL (test code = 33 mg/dL See_Comment L [Automated message] 6386874801) The system Vysr generated this result transmit loki reference range : >=40. The refer ence range was not u sed to interpret th is result as normal/abnormal . HDLC RATIO (test code = See_Comment [Au tomated message] 1660911694) The system Vysr generated this result transmit loki reference range : <=5.0. The refe rence range was not u sed to interpret th is result as normal/abnormal . TRIG (test code = 115 mg/dL 30-170 4210305275) LDL CHOL (test code = 52 mg/dL See_Comment [Auto mated message] 07353-4) The system Vysr generated this result transmit loki reference range : <=160. The refe rence range was not u sed to interpret th is result as normal/abnormal . VLDL (test code = 23 mg/dL 5-60 8112500540) Lab Interpretation (test Abnormal code = 52867-7) [facility]58266)(TOTAL CHOLESTEROL, TRIGLYCERIDES, HDL)2022-07-27 08:49:01 Test Item Value Reference Range Interpretation Comments CHOL (test code = 108 mg/dL 120-200 L 8739814827) HDL (test code = 33 mg/dL See_Comment L [Automated message] 5247389001) The system Vysr generated this result transmit loki reference range : >=40. The refer ence range was not u sed to interpret th is result as normal/abnormal . HDLC RATIO (test code = See_Comment [Au tomated message] 0572012306) The system Vysr generated this result transmit loki reference range : <=5.0. The refe rence range was not u sed to interpret th is result as normal/abnormal . TRIG (test code = 115 mg/dL 30-170 1061093385) LDL CHOL (test code = 52 mg/dL See_Comment [Auto mated message] 10459-1) The system Vysr generated this result transmit loki reference range : <=160. The refe rence range was not u sed to interpret th is result as normal/abnormal . VLDL (test code = 23 mg/dL 5-60 5175768326) Lab Interpretation (test Abnormal code = 78574-4) [facility] (23139)(TOTAL CHOLESTEROL, TRIGLYCERIDES, HDL)2022-07-27 08:49:01 Test Item Value Reference Range Interpretation Comments CHOL (test code = 108 mg/dL 120-200 L 4025146706) HDL (test code = 33 mg/dL See_Comment L [Automated message] 3015371131) The system Vysr generated this result transmit loki reference range : >=40. The refer ence range was not u sed to interpret th is result as normal/abnormal . HDLC RATIO (test code = See_Comment [Au tomated message] 3550626350) The system Vysr generated this result transmit loki reference range : <=5.0. The refe rence range was not u sed to interpret th is result as normal/abnormal . TRIG (test code = 115 mg/dL 30-170 7036329029) LDL CHOL (test code = 52 mg/dL See_Comment [Auto mated message] 15594-0) The system Vysr generated this result transmit loki reference range : <=160. The refe rence range was not u sed to interpret th is result as normal/abnormal . VLDL (test code = 23 mg/dL 5-60 3818378209) Lab Interpretation (test Abnormal code = 54700-2) [facility] Metabolic Panel (NA, K, CL, CO2, GLUCOSE, BUN, CREATININE, CA)2022-07-27 08:49:01 Test Item Value Reference Range Interpretation Comments NA (test code = 131 mmol/L 135-145 L 3880883924) K (test code = 3.5 mmol/L 3.5-5.0 5358255233) CL (test code = 99 mmol/L 98-108 6914636095) CO2 TOTAL (test code = 26 mmol/L 23-31 8718607956) AGAP (test code = 2-16 6410896613) BUN (test code = 12 mg/dL 7-23 3675810431) GLUCOSE (test code = 84 mg/dL 70-110 6984620237) CREATININE (test code = 0.71 mg/dL 0.60-1.25 7995953998) CALCIUM (test code = 8.2 mg/dL 8.6-10.6 L 1732366616) eGFR (test code = mL/min/1.73m2 8030305193) JUAN DAVID (test code = JUAN DAVID) [...] tests). Lab Interpretation Abnormal (test code = 81721-8) [facility] Xpfke6099-53-92 08:49:01 Test Item Value Reference Range Interpretation Comments MAGNESIUM (test code = 1309628884) 1.9 mg/dL 1.7-2.4 Lab Interpretation (test code = Normal 95439-1) [facility] (03822)(TOTAL CHOLESTEROL, TRIGLYCERIDES, HDL)2022-07-27 08:49:01 Test Item Value Reference Range Interpretation Comments CHOL (test code = 108 mg/dL 120-200 L 2922097123) HDL (test code = 33 mg/dL See_Comment L [Automated message] 5700825931) The system Vysr generated this result transmit loki reference range : >=40. The refer ence range was not u sed to interpret th is result as normal/abnormal . HDLC RATIO (test code = See_Comment [Au tomated message] 8519914730) The system Vysr generated this result transmit loki reference range : <=5.0. The refe rence range was not u sed to interpret th is result as normal/abnormal . TRIG (test code = 115 mg/dL 30-170 8050273491) LDL CHOL (test code = 52 mg/dL See_Comment [Auto mated message] 91560-5) The system Vysr generated this result transmit loki reference range : <=160. The refe rence range was not u sed to interpret th is result as normal/abnormal . VLDL (test code = 23 mg/dL 5-60 7998806640) Lab Interpretation (test Abnormal code = 19209-2) [facility] (07342)(TOTAL CHOLESTEROL, TRIGLYCERIDES, HDL)2022-07-27 08:49:01 Test Item Value Reference Range Interpretation Comments CHOL (test code = 108 mg/dL 120-200 L 0482382172) HDL (test code = 33 mg/dL See_Comment L [Automated message] 5639156814) The system Vysr generated this result transmit loki reference range : >=40. The refer ence range was not u sed to interpret th is result as normal/abnormal . HDLC RATIO (test code = See_Comment [Au tomated message] 6858752709) The system Vysr generated this result transmit loki reference range : <=5.0. The refe rence range was not u sed to interpret th is result as normal/abnormal . TRIG (test code = 115 mg/dL 30-170 5250815154) LDL CHOL (test code = 52 mg/dL See_Comment [Auto mated message] 47283-9) The system Vysr generated this result transmit loki reference range : <=160. The refe rence range was not u sed to interpret th is result as normal/abnormal . VLDL (test code = 23 mg/dL 5-60 6581420674) Lab Interpretation (test Abnormal code = 25619-5) [facility], 1 VIEW NE2667-03-74 00:13:00 [facility] : 1960 Sex: MFINAL REPORT Patient Name: Carrol GerardoB: 1960MRN: [id number]: Abdomen, single viewExam date/time: 06/08/2022 at 5:37 PMDowntime AN#:[id number] Examination was dictated during a downtime event. [...] Cindy Alcala MDReport Verified Date/Time: 07/15/2022 00:13:30 [id number] 23:08:54 Test Item Value Reference Range Interpretation Comments LIPASE (test code = 9984360563) 171 U/L 0-220 Lab Interpretation (test code = Normal 65188-0) [facility]. METABOLIC PANEL (36565)2022-07-09 23:08:53 Test Item Value Reference Range Interpretation Comments NA (test code = 136 mmol/L 135-145 5001546828) K (test code = 3.9 mmol/L 3.5-5.0 1448585865) CL (test code = 99 mmol/L 98-108 1905028239) CO2 TOTAL (test code = 26 mmol/L 23-31 7036963673) AGAP (test code = 2-16 6799168183) BUN (test code = 14 mg/dL 7-23 1156597553) GLUCOSE (test code = 112 mg/dL 70-110 H 5506459483) CREATININE (test code = 0.76 mg/dL 0.60-1.25 8015910962) TOTAL BILI (test code = 0.4 mg/dL 0.1-1.4 1644077405) CALCIUM (test code = 8.7 mg/dL 8.6-10.6 6914779685) T PROTEIN (test code = 6.3 g/dL 6.3-8.2 9409169055) ALBUMIN (test code = 3.6 g/dL 3.5-5.0 1731537053) ALK PHOS (test code = 233 U/L 34-122 H 7572557266) ALTv (test code = 37 U/L 5-50 1742-6) AST(SGOT) (test code = 32 U/L 13-40 4472428492) eGFR (test code = mL/min/1.73m2 1699923855) JUAN DAVID (test code = JUAN DAVID) [...] tests). Lab Interpretation Abnormal (test code = 96698-4) [facility] METABOLIC PANEL (30395)2022-07-09 23:08:53 Test Item Value Reference Range Interpretation Comments NA (test code = 136 mmol/L 135-145 2410440966) K (test code = 3.9 mmol/L 3.5-5.0 6888302038) CL (test code = 99 mmol/L 98-108 8540762927) CO2 TOTAL (test code = 26 mmol/L 23-31 9276727827) AGAP (test code = 2-16 2882205473) BUN (test code = 14 mg/dL 7-23 3284451568) GLUCOSE (test code = 112 mg/dL 70-110 H 3903283596) CREATININE (test code = 0.76 mg/dL 0.60-1.25 6426980325) TOTAL BILI (test code = 0.4 mg/dL 0.1-1.9 9977287715) CALCIUM (test code = 8.7 mg/dL 8.6-10.6 3690957899) T PROTEIN (test code = 6.3 g/dL 6.3-8.2 3631191016) ALBUMIN (test code = 3.6 g/dL 3.5-5.0 4609275611) ALK PHOS (test code = 233 U/L 34-122 H 7609993845) ALTv (test code = 37 U/L 5-50 1742-6) AST(SGOT) (test code = 32 U/L 13-40 0286726212) eGFR (test code = mL/min/1.73m2 1218758397) JUAN DAVID (test code = JUAN DAVID) [...] tests). Lab Interpretation Abnormal (test code = 29521-9) [facility]. METABOLIC PANEL (18609)2022-07-09 23:08:53 Test Item Value Reference Range Interpretation Comments NA (test code = 136 mmol/L 135-145 [id number]) K (test code = 3.9 mmol/L 3.5-5.0 5383079253) CL (test code = 99 mmol/L 98-108 3494308664) CO2 TOTAL (test code = 26 mmol/L 23-31 6552510047) AGAP (test code = 2-16 9908827626) BUN (test code = 14 mg/dL 7-23 3995006849) GLUCOSE (test code = 112 mg/dL 70-110 H 1327144592) CREATININE (test code = 0.76 mg/dL 0.60-1.25 0723653090) TOTAL BILI (test code = 0.4 mg/dL 0.1-1.6 7305369664) CALCIUM (test code = 8.7 mg/dL 8.6-10.6 6960355445) T PROTEIN (test code = 6.3 g/dL 6.3-8.2 2676204638) ALBUMIN (test code = 3.6 g/dL 3.5-5.0 8689961858) ALK PHOS (test code = 233 U/L 34-122 H 0520112807) ALTv (test code = 37 U/L 5-50 1742-6) AST(SGOT) (test code = 32 U/L 13-40 6373462313) eGFR (test code = mL/min/1.73m2 5924651276) JUAN DAVID (test code = JUAN DAVID) [...] tests). Lab Interpretation Abnormal (test code = 99156-5) [facility]. METABOLIC PANEL (48075)2022-07-09 23:08:53 Test Item Value Reference Range Interpretation Comments NA (test code = 136 mmol/L 135-145 0108698186) K (test code = 3.9 mmol/L 3.5-5.0 5557258486) CL (test code = 99 mmol/L 98-108 2823147591) CO2 TOTAL (test code = 26 mmol/L 23-31 3869688050) AGAP (test code = 2-16 7389739762) BUN (test code = 14 mg/dL 7-23 0369411444) GLUCOSE (test code = 112 mg/dL 70-110 H [id number]) CREATININE (test code = 0.76 mg/dL 0.60-1.25 8115494479) TOTAL BILI (test code = 0.4 mg/dL 0.1-1.4 9095043191) CALCIUM (test code = 8.7 mg/dL 8.6-10.6 1109960988) T PROTEIN (test code = 6.3 g/dL 6.3-8.2 3912894457) ALBUMIN (test code = 3.6 g/dL 3.5-5.0 8886188162) ALK PHOS (test code = 233 U/L 34-122 H 7787130099) ALTv (test code = 37 U/L 5-50 1742-6) AST(SGOT) (test code = 32 U/L 13-40 4686423224) eGFR (test code = mL/min/1.73m2 3057794605) JUAN DAVID (test code = JUAN DAVID) [...] tests). Lab Interpretation Abnormal (test code = 28339-1) [facility] ([id number])2022-07-09 23:08:53 Test Item Value Reference Range Interpretation Comments NA (test code = 136 mmol/L 135-145 3252335709) K (test code = 3.9 mmol/L 3.5-5.0 5048076748) CL (test code = 99 mmol/L 98-108 5347585055) CO2 TOTAL (test code = 26 mmol/L 23-31 4374201816) AGAP (test code = 2-16 6655812628) BUN (test code = 14 mg/dL 7-23 2905321387) GLUCOSE (test code = 112 mg/dL 70-110 H 5212759924) CREATININE (test code = 0.76 mg/dL 0.60-1.25 5222941328) TOTAL BILI (test code = 0.4 mg/dL 0.1-1.1 1098145890) CALCIUM (test code = 8.7 mg/dL 8.6-10.6 2589667668) T PROTEIN (test code = 6.3 g/dL 6.3-8.2 9295265703) ALBUMIN (test code = 3.6 g/dL 3.5-5.0 8157054577) ALK PHOS (test code = 233 U/L 34-122 H 5999392346) ALTv (test code = 37 U/L 5-50 1742-6) AST(SGOT) (test code = 32 U/L 13-40 8385041327) eGFR (test code = mL/min/1.73m2 7243693044) JUAN DAVID (test code = JUAN DAVID) [...] tests). Lab Interpretation Abnormal (test code = 38495-4) [facility]. METABOLIC PANEL (19579)2022-07-09 23:08:53 Test Item Value Reference Range Interpretation Comments NA (test code = 136 mmol/L 135-145 2629080326) K (test code = 3.9 mmol/L 3.5-5.0 2863431512) CL (test code = 99 mmol/L 98-108 6760544233) CO2 TOTAL (test code = 26 mmol/L 23-31 3882703882) AGAP (test code = 2-16 4489830381) BUN (test code = 14 mg/dL 7-23 6147370992) GLUCOSE (test code = 112 mg/dL 70-110 H 7094165430) CREATININE (test code = 0.76 mg/dL 0.60-1.25 9047702175) TOTAL BILI (test code = 0.4 mg/dL 0.1-1.5 4133734441) CALCIUM (test code = 8.7 mg/dL 8.6-10.6 6711863176) T PROTEIN (test code = 6.3 g/dL 6.3-8.2 8781438956) ALBUMIN (test code = 3.6 g/dL 3.5-5.0 6172491837) ALK PHOS (test code = 233 U/L 34-122 H 1066201910) ALTv (test code = 37 U/L 5-50 2-6) AST(SGOT) (test code = 32 U/L 13-40 8328714574) eGFR (test code = mL/min/1.73m2 1377263846) JUAN DAVID (test code = JUAN DAVID) [...] tests). Lab Interpretation Abnormal (test code = 32228-9) [facility], [facility], NON [id number] 23:20:00[facility] Jessica : 1960 Sex: MFINAL REPORT Patient Name: Carrol Aguirre: [id number]: 1960 CLINICAL HISTORY: Pain TECHNIQUE: 1 view of the chest COMPARISON: None IMPRESSION: There are no focal infiltrates or pleural effusions. The cardiomediastinal silhouette is within normal limits for size. The visualized bones are intact. Tubing projects in the upper abdomen. Signed: Chapito Zayas MDReport Verified Date/Time: 07/06/2022 23:20:47 Reading Location: [address] Reading Room TROPONIN [id number] 14:21:46 Test Item Value Reference Interpretation Comments Range TROPONIN I (test 0.003 ng/mL See_Comment [Automated code = 6755360537) message] The system which generated this result [...] biotin. Lab Interpretation Normal (test code = 49876-2) [facility] [id number] 14:21:46 Test Item Value Reference Range Interpretation Comments NT-proBNP (test code 128 pg/mL See_Comment H [Autom ated = 3406846105) message] The system which generated this result transmitted reference range : <=125. The reference range was not used to interpret this result as normal/abnormal . JUAN DAVID (test code = JUAN DAVID) Biotin has been reported to cause a negative bias, interpret results relative to patient's use of biotin. Lab Interpretation Abnormal (test code = 89955-1) [facility] [id number] 14:21:46 Test Item Value Reference Interpretation Comments Range TROPONIN I (test 0.003 ng/mL See_Comment [Automated code = 9035322967) message] The system which generated this result [...] biotin. Lab Interpretation Normal (test code = 81212-8) [facility] [id number] 14:21:46 Test Item Value Reference Range Interpretation Comments NT-proBNP (test code 128 pg/mL See_Comment H [Autom ated = 7420082334) message] The system which generated this result transmitted reference range : <=125. The reference range was not used to interpret this result as normal/abnormal . JUAN DAVID (test code = JUAN DAVID) Biotin has been reported to cause a negative bias, interpret results relative to patient's use of biotin. Lab Interpretation Abnormal (test code = 89577-6) [facility] [id number] 14:21:46 Test Item Value Reference Interpretation Comments Range TROPONIN I (test 0.003 ng/mL See_Comment [Automated code = 9861699526) message] The system which generated this result [...] biotin. Lab Interpretation Normal (test code = 04876-0) [facility] [id number] 14:21:46 Test Item Value Reference Range Interpretation Comments NT-proBNP (test code 128 pg/mL See_Comment H [Autom ated = 7571268824) message] The system which generated this result transmitted reference range : <=125. The reference range was not used to interpret this result as normal/abnormal . JUAN DAVID (test code = JUAN DAVID) Biotin has been reported to cause a negative bias, interpret results relative to patient's use of biotin. Lab Interpretation Abnormal (test code = 50269-1) [facility] [id number] 14:21:46 Test Item Value Reference Interpretation Comments Range TROPONIN I (test 0.003 ng/mL See_Comment [Automated code = 6189414104) message] The system which generated this result [...] biotin. Lab Interpretation Normal (test code = 54394-2) [facility] [id number] 14:21:46 Test Item Value Reference Range Interpretation Comments NT-proBNP (test code 128 pg/mL See_Comment H [Autom ated = 9284766832) message] The system which generated this result transmitted reference range : <=125. The reference range was not used to interpret this result as normal/abnormal . JUAN DAVID (test code = JUAN DAVID) Biotin has been reported to cause a negative bias, interpret results relative to patient's use of biotin. Lab Interpretation Abnormal (test code = 05840-9) [facility] [id number] 14:21:46 Test Item Value Reference Interpretation Comments Range TROPONIN I (test 0.003 ng/mL See_Comment [Automated code = 0816409053) message] The system which generated this result [...] biotin. Lab Interpretation Normal (test code = 58178-3) [facility] [id number] 14:21:46 Test Item Value Reference Range Interpretation Comments NT-proBNP (test code 128 pg/mL See_Comment H [Autom ated = 8081705170) message] The system which generated this result transmitted reference range : <=125. The reference range was not used to interpret this result as normal/abnormal . JUAN DAVID (test code = JUAN DAVID) Biotin has been reported to cause a negative bias, interpret results relative to patient's use of biotin. Lab Interpretation Abnormal (test code = 93682-3) [facility] [id number] 14:21:46 Test Item Value Reference Interpretation Comments Range TROPONIN I (test 0.003 ng/mL See_Comment [Automated code = 5324564513) message] The system which generated this result [...] biotin. Lab Interpretation Normal (test code = 58002-3) [facility] [id number] 14:21:46 Test Item Value Reference Range Interpretation Comments NT-proBNP (test code 128 pg/mL See_Comment H [Autom ated = 8508913178) message] The system which generated this result transmitted reference range : <=125. The reference range was not used to interpret this result as normal/abnormal . JUAN DAVID (test code = JUAN DAVID) Biotin has been reported to cause a negative bias, interpret results relative to patient's use of biotin. Lab Interpretation Abnormal (test code = 23706-6) [facility] [id number] 14:21:46 Test Item Value Reference Interpretation Comments Range TROPONIN I (test 0.003 ng/mL See_Comment [Automated code = 0732841498) message] The system which generated this result [...] biotin. Lab Interpretation Normal (test code = 81203-4) [facility] [id number] 14:21:46 Test Item Value Reference Range Interpretation Comments NT-proBNP (test code 128 pg/mL See_Comment H [Autom ated = 6980869570) message] The system which generated this result transmitted reference range : <=125. The reference range was not used to interpret this result as normal/abnormal . JUAN DAVID (test code = JUAN DAVID) Biotin has been reported to cause a negative bias, interpret results relative to patient's use of biotin. Lab Interpretation Abnormal (test code = 48468-0) [facility] [id number] 14:21:46 Test Item Value Reference Interpretation Comments Range TROPONIN I (test 0.003 ng/mL See_Comment [Automated code = 8197210096) message] The system which generated this result [...] biotin. Lab Interpretation Normal (test code = 34295-0) [facility] [id number] 14:21:46 Test Item Value Reference Range Interpretation Comments NT-proBNP (test code 128 pg/mL See_Comment H [Autom ated = 4925368995) message] The system which generated this result transmitted reference range : <=125. The reference range was not used to interpret this result as normal/abnormal . JUAN DAVID (test code = JUAN DAVID) Biotin has been reported to cause a negative bias, interpret results relative to patient's use of biotin. Lab Interpretation Abnormal (test code = 90210-5) [facility]2022-[facility] 12:14:22 Test Item Value Reference Range Interpretation Comments MAGNESIUM (test code = 2233566752) 1.8 mg/dL 1.7-2.4 Lab Interpretation (test code = Normal 40153-3) [facility] (NA, K, CL, CO2, GLUCOSE, BUN, CREATININE, CA)2022-06-26 12:14:22 Test Item Value Reference Range Interpretation Comments NA (test code = 134 mmol/L 135-145 L 2260585893) K (test code = 3.9 mmol/L 3.5-5 9796929286) CL (test code = 101 mmol/L 98-108 8196554524) CO2 TOTAL (test code = 27 mmol/L 23-31 4502214320) AGAP (test code = 2-16 3428264630) BUN (test code = 7 mg/dL 7-23 3096521484) GLUCOSE (test code = 108 mg/dL 70-110 0843187248) CREATININE (test code = 0.74 mg/dL 0.6-1.25 8939475511) CALCIUM (test code = 8.4 mg/dL 8.6-10.6 L 3693894554) eGFR (test code = mL/min/1.73m2 3177121477) JUAN DAVID (test code = JUAN DAVID) [...] tests). Lab Interpretation Abnormal (test code = 61936-8) [facility] METABOLIC PANEL (NA, K, CL, CO2, GLUCOSE, BUN, CREATININE, CA)2022-06-26 12:14:22 Test Item Value Reference Range Interpretation Comments NA (test code = 134 mmol/L 135-145 L 2412955598) K (test code = 3.9 mmol/L 3.5-5 8281867978) CL (test code = 101 mmol/L 98-108 6272924936) CO2 TOTAL (test code = 27 mmol/L 23-31 3067185976) AGAP (test code = 2-16 2660569257) BUN (test code = 7 mg/dL 7-23 2554204477) GLUCOSE (test code = 108 mg/dL 70-110 9763846021) CREATININE (test code = 0.74 mg/dL 0.6-1.25 5221921242) CALCIUM (test code = 8.4 mg/dL 8.6-10.6 L 8532822728) eGFR (test code = mL/min/1.73m2 0262450968) JUAN DAVID (test code = JUAN DAVID) [...] tests). Lab Interpretation Abnormal (test code = 83417-1) [facility] 12:14:22 Test Item Value Reference Range Interpretation Comments MAGNESIUM (test code = 4658096829) 1.8 mg/dL 1.7-2.4 Lab Interpretation (test code = Normal 95911-4) [facility]-[id number] 12:02:19 Test Item Value Reference Interpretation Comments Range D-DIMER (test code = See_Comment H [Autom ated 3609951913) message] The system which generated this result [...] diagnosis. Lab Interpretation Abnormal (test code = 26263-3) [facility]-HAVUH2017-08-16 12:02:19 Test Item Value Reference Interpretation Comments Range D-DIMER (test code = See_Comment H [Autom ated 5286776348) message] The system which generated this result [...] diagnosis. Lab Interpretation Abnormal (test code = 57794-3) [facility]-[id number] 12:02:19 Test Item Value Reference Interpretation Comments Range D-DIMER (test code = See_Comment H [Autom ated 7079381326) message] The system which generated this result [...] diagnosis. Lab Interpretation Abnormal (test code = 39591-4) [facility]-[id number] 12:02:19 Test Item Value Reference Interpretation Comments Range D-DIMER (test code = See_Comment H [Autom ated 2928428640) message] The system which generated this result [...] diagnosis. Lab Interpretation Abnormal (test code = 85622-6) [facility]-[id number] 12:02:19 Test Item Value Reference Interpretation Comments Range D-DIMER (test code = See_Comment H [Autom ated 7562449107) message] The system which generated this result [...] diagnosis. Lab Interpretation Abnormal (test code = 19234-9) [facility]-[id number] 12:02:19 Test Item Value Reference Interpretation Comments Range D-DIMER (test code = See_Comment H [Autom ated 0224206769) message] The system which generated this result transmitted reference range : <0.50 ?g/mL (FEU). The reference range was not used to interpret this result as normal/abnormal . JUAN DAVID (test code = This test may be JUAN DVAID) used in conjunction with a clinical pretest [...] diagnosis. Lab Interpretation Abnormal (test code = 67408-1) [facility]-[id number] 12:02:19 Test Item Value Reference Interpretation Comments Range D-DIMER (test code = See_Comment H [Autom ated 9846992317) message] The system which generated this result [...] diagnosis. Lab Interpretation Abnormal (test code = 25428-1) [facility][id number] 12:02:19 Test Item Value Reference Interpretation Comments Range D-DIMER (test code = See_Comment H [Autom ated 2445393023) message] The system which generated this result [...] diagnosis. Lab Interpretation Abnormal (test code = 96987-2) [facility] WITH [id number] 11:51:18 Test Item Value Reference Range Interpretation Comments WBC (test code = See_Comment [Automated 8390-2) message] The sy stem which generated this result transmitted reference range : 4.20 - 10.70 10*3/?L. The reference range was not used to interpret this result as normal/abnormal . RBC (test code = See_Comment L [Automated 050-8) message] The sy stem which generated this [...] RDW-SD (test code = 42.1 fL 38.5-51.6 75191-0) RDW-CV (test code = 13.3 % 12.1-15.4 788-0) PLT (test code = See_Comment L [Automated 777-3) message] The sy stem which generated this result transmitted reference range : 150 - 328 10*3/ ?L. The reference r helen was not used to interpret this result as normal/abnormal . MPV (test code = 10.5 fL 9.8-13 34886-0) NRBC/100 WBC (test See_Comment [Automat ed code = 0192100969) message] The system which generated this result transmitted reference range : 0.0 - 10.0 /100 WBCs. The refer ence range was not u sed to interpret th is result as normal/abnormal . NRBC x10^3 (test code See_Comment [Auto mated = 4793283332) message] The s ystem which generated this result transmitted reference range : 10*3/?L. The reference range was not used to interpret this result as normal/abnormal . GRAN MAT (NEUT) % 74.2 % (test code = 770-8) IMM GRAN % (test code 0.90 % = 5702027243) LYMPH % (test code = 14.4 % 736-9) MONO % (test code = 9.7 % 5905-5) EOS % (test code = 0.4 % 713-8) BASO % (test code = 0.4 % 706-2) GRAN MAT x10^3(ANC) 4.07 10*3/uL 1.99-6.95 (test code = 5795990881) IMM GRAN x10^3 (test 0.05 10*3/uL 0-0.06 code = 7728167991) LYMPH x10^3 (test code 0.79 10*3/uL 1.09-3.23 L = 731-0) MONO x10^3 (test code 0.53 10*3/uL 0.36-1.02 = 742-7) EOS x10^3 (test code = 0.06-0.53 L 711-2) BASO x10^3 (test code 0.01-0.09 = 704-7) Lab Interpretation Abnormal (test code = 75079-4) [facility] WITH [id number] 11:51:18 Test Item Value Reference Range Interpretation [...] RDW-SD (test code = 42.1 fL 38.5-51.6 73027-9) RDW-CV (test code = 13.3 % 12.1-15.4 788-0) PLT (test code = See_Comment L [Automated 777-3) message] The sy stem which generated this result transmitted reference range : 150 - 328 10*3/ ?L. The reference r helen was not used to interpret this result as normal/abnormal . MPV (test code = 10.5 fL 9.8-13 44744-4) NRBC/100 WBC (test See_Comment [Automat ed code = 1046174671) message] The system which generated this result transmitted reference range : 0.0 - 10.0 /100 WBCs. The refer ence range was not u sed to interpret th is result as normal/abnormal . NRBC x10^3 (test code See_Comment [Auto mated = 3645706306) message] The s ystem which generated this result transmitted reference range : 10*3/?L. The reference range was not used to interpret this result as normal/abnormal . GRAN MAT (NEUT) % 74.2 % (test code = 770-8) IMM GRAN % (test code 0.90 % = 2054835613) LYMPH % (test code = 14.4 % 736-9) MONO % (test code = 9.7 % 5905-5) EOS % (test code = 0.4 % 713-8) BASO % (test code = 0.4 % 706-2) GRAN MAT x10^3(ANC) 4.07 10*3/uL 1.99-6.95 (test code = 6144882677) IMM GRAN x10^3 (test 0.05 10*3/uL 0-0.06 code = 0344720078) LYMPH x10^3 (test code 0.79 10*3/uL 1.09-3.23 L = 731-0) MONO x10^3 (test code 0.53 10*3/uL 0.36-1.02 = 742-7) EOS x10^3 (test code = 0.06-0.53 L 711-2) BASO x10^3 (test code 0.01-0.09 = 704-7) Lab Interpretation Abnormal (test code = 91476-7) [facility]99128[facility] (ALB,T.PRO,BILI T,BU/BC,ALT,AST,ALK PHOS)2022-06-25 23:34:17 Test Item Value Reference Range Interpretation Comments TOTAL BILI (test code = 7673563327) 0.5 mg/dL 0.1-1.1 BILI UNCON (test code = 3837227291) 0.2 mg/dL 0.1-1.1 BILI CONJ (test code = 9607909235) 0.0 mg/dL 0-0.3 T PROTEIN (test code = 7557240685) 5.9 g/dL 6.3-8.2 L ALBUMIN (test code = 8723699261) 3.3 g/dL 3.5-5 L ALK PHOS (test code = 9360678017) 256 U/L 34-122 H ALTv (test code = 1742-6) 168 U/L 5-50 H AST(SGOT) (test code = 5557389615) 151 U/L 13-40 H Lab Interpretation (test code = Abnormal 78950-7) [facility] (60327[facility] (ALB,T.PRO,BILI T,BU/BC,ALT,AST,ALK PHOS)2022-06-25 23:34:17 Test Item Value Reference Range Interpretation Comments TOTAL BILI (test code = 3035782397) 0.5 mg/dL 0.1-1.1 BILI UNCON (test code = 4279201892) 0.2 mg/dL 0.1-1.1 BILI CONJ (test code = 7723909520) 0.0 mg/dL 0-0.3 T PROTEIN (test code = 6799518883) 5.9 g/dL 6.3-8.2 L ALBUMIN (test code = 8508455076) 3.3 g/dL 3.5-5 L ALK PHOS (test code = 9016101745) 256 U/L 34-122 H ALTv (test code = 1742-6) 168 U/L 5-50 H AST(SGOT) (test code = 6906208288) 151 U/L 13-40 H Lab Interpretation (test code = Abnormal 50774-4) [facility] (65870[facility] (ALB,T.PRO,BILI T,BU/BC,ALT,AST,ALK PHOS)2022-06-25 23:34:17 Test Item Value Reference Range Interpretation Comments TOTAL BILI (test code = 1375502971) 0.5 mg/dL 0.1-1.1 BILI UNCON (test code = 1768059369) 0.2 mg/dL 0.1-1.1 BILI CONJ (test code = 3089127068) 0.0 mg/dL 0-0.3 T PROTEIN (test code = 3561567123) 5.9 g/dL 6.3-8.2 L ALBUMIN (test code = 6562124981) 3.3 g/dL 3.5-5 L ALK PHOS (test code = 3954479865) 256 U/L 34-122 H ALTv (test code = 1742-6) 168 U/L 5-50 H AST(SGOT) (test code = 8354241606) 151 U/L 13-40 H Lab Interpretation (test code = Abnormal 42052-8) [facility] GLUCOSE (AUTOMATED)2022-06-25 20:16:06 Test Item Value Reference Range Interpretation Comments POCT GLU (test code = 9318848540) 110 mg/dL 70-110 Lab Interpretation (test code = Normal 26191-4) [facility] GLUCOSE (AUTOMATED)2022-06-25 20:16:06 Test Item Value Reference Range Interpretation Comments POCT GLU (test code = 3952727212) 110 mg/dL 70-110 Lab Interpretation (test code = Normal 44532-4) [facility] GLUCOSE (AUTOMATED)2022-06-25 20:16:06 Test Item Value Reference Range Interpretation Comments POCT GLU (test code = 3239942609) 110 mg/dL 70-110 Lab Interpretation (test code = Normal 54154-2) [facility] GLUCOSE (AUTOMATED)2022-06-25 20:16:06 Test Item Value Reference Range Interpretation Comments POCT GLU (test code = 1288758451) 110 mg/dL 70-110 Lab Interpretation (test code = Normal 46839-4) [facility] GLUCOSE (AUTOMATED)2022-06-25 20:16:06 Test Item Value Reference Range Interpretation Comments POCT GLU (test code = 6622706034) 110 mg/dL 70-110 Lab Interpretation (test code = Normal 37781-0) [facility] GLUCOSE (AUTOMATED)2022-06-25 20:16:06 Test Item Value Reference Range Interpretation Comments POCT GLU (test code = 0650545836) 110 mg/dL 70-110 Lab Interpretation (test code = Normal 23845-9) [facility] GLUCOSE (AUTOMATED)2022-06-25 20:16:06 Test Item Value Reference Range Interpretation Comments POCT GLU (test code = 9950171176) 110 mg/dL 70-110 Lab Interpretation (test code = Normal 38231-8) [facility] GLUCOSE (AUTOMATED)2022-06-25 20:16:06 Test Item Value Reference Range Interpretation Comments POCT GLU (test code = 6548012206) 110 mg/dL 70-110 Lab Interpretation (test code = Normal 37871-0) [facility] / [id number] 07:29:57 Test Item Value Reference Range Interpretation Comments PROTIME PATIENT (test See_Comment [Auto mated message] code = 5964-2) The system [employer] generated this result transmitted ref erence range: 10.1 - 1 2.6 Seconds. The re ference range was not u sed to interpret this result as normal/abnor mal. INR (test code = 6301-6) Nor mal INR <1.1; Warfarin Therap eutic range 2.0 to 3. 0 or 2.5 to 3.5, dep ending upon the indica tions. Lab Interpretation (test Normal code = 76159-2) [facility] / [id number] 07:29:57 Test Item Value Reference Range Interpretation Comments PROTIME PATIENT (test See_Comment [Auto mated message] code = 5964-2) The system [employer] generated this result transmitted ref erence range: 10.1 - 1 2.6 Seconds. The re ference range was not u sed to interpret this result as normal/abnor mal. INR (test code = 6301-6) Nor mal INR <1.1; Warfarin Therap eutic range 2.0 to 3. 0 or 2.5 to 3.5, dep ending upon the indica tions. Lab Interpretation (test Normal code = 08731-7) [facility]. METABOLIC PANEL (73711)2022-06-20 07:17:55 Test Item Value Reference Range Interpretation Comments NA (test code = 135 mmol/L 135-145 7632382760) K (test code = 4.4 mmol/L 3.5-5 4113016523) CL (test code = 99 mmol/L 98-108 1559715460) CO2 TOTAL (test code = 25 mmol/L 23-31 6103690033) AGAP (test code = 2-16 0698305680) BUN (test code = 13 mg/dL 7-23 9931690215) GLUCOSE (test code = 76 mg/dL 70-110 6270306814) CREATININE (test code = 0.79 mg/dL 0.6-1.25 0209567305) TOTAL BILI (test code = 0.3 mg/dL 0.1-1.9 5192770982) CALCIUM (test code = 8.5 mg/dL 8.6-10.6 L 1485858248) T PROTEIN (test code = 6.0 g/dL 6.3-8.2 L 3968678110) ALBUMIN (test code = 3.4 g/dL 3.5-5 L 6270362309) ALK PHOS (test code = 253 U/L 34-122 H 8860662434) ALTv (test code = 62 U/L 5-50 H 1742-6) AST(SGOT) (test code = 33 U/L 13-40 5696984881) eGFR (test code = mL/min/1.73m2 6508742309) JUAN DAVID (test code = JUAN DAVID) [...] tests). Lab Interpretation Abnormal (test code = 61220-9) [facility] METABOLIC PANEL (34559)2022-06-20 07:17:55 Test Item Value Reference Range Interpretation Comments NA (test code = 135 mmol/L 135-145 5963181194) K (test code = 4.4 mmol/L 3.5-5 4664513158) CL (test code = 99 mmol/L 98-108 3435318689) CO2 TOTAL (test code = 25 mmol/L 23-31 0843388672) AGAP (test code = 2-16 3486200125) BUN (test code = 13 mg/dL 7-23 0082157602) GLUCOSE (test code = 76 mg/dL 70-110 [id number]) CREATININE (test code = 0.79 mg/dL 0.6-1.25 7813616914) TOTAL BILI (test code = 0.3 mg/dL 0.1-1.0 4877205359) CALCIUM (test code = 8.5 mg/dL 8.6-10.6 L 6078677973) T PROTEIN (test code = 6.0 g/dL 6.3-8.2 L 3610604686) ALBUMIN (test code = 3.4 g/dL 3.5-5 L 3989965932) ALK PHOS (test code = 253 U/L 34-122 H 4567723095) ALTv (test code = 62 U/L 5-50 H 1742-6) AST(SGOT) (test code = 33 U/L 13-40 7024116081) eGFR (test code = mL/min/1.73m2 0175954397) JUAN DAVID (test code = JUAN DAVID) [...] tests). Lab Interpretation Abnormal (test code = 14356-1) [facility] WITH [id number] 06:57:57 Test Item Value Reference Range Interpretation Comments WBC (test code = See_Comment [Automated 1790-2) message] The sy stem which generated this result transmitted reference range : 4.20 - 10.70 10*3/?L. The reference range was not used to interpret this result as normal/abnormal . RBC (test code = See_Comment L [Automated 469-8) message] The sy stem which generated this [...] RDW-SD (test code = 38.6 fL 38.5-51.6 85383-5) RDW-CV (test code = 12.3 % 12.1-15.4 788-0) PLT (test code = See_Comment [Automated 777-3) message] The sy stem which generated this result transmitted reference range : 150 - 328 10*3/ ?L. The reference r helen was not used to interpret this result as normal/abnormal . MPV (test code = 10.1 fL 9.8-13 94488-7) NRBC/100 WBC (test See_Comment [Automat ed code = 8104661878) message] The system which generated this result transmitted reference range : 0.0 - 10.0 /100 WBCs. The refer ence range was not u sed to interpret th is result as normal/abnormal . NRBC x10^3 (test code See_Comment [Auto mated = 7155595748) message] The s ystem which generated this result transmitted reference range : 10*3/?L. The reference range was not used to interpret this result as normal/abnormal . GRAN MAT (NEUT) % 53.0 % (test code = 770-8) IMM GRAN % (test code 1.10 % = 5392615090) LYMPH % (test code = 31.8 % 736-9) MONO % (test code = 13.1 % 5905-5) EOS % (test code = 0.6 % 713-8) BASO % (test code = 0.4 % 706-2) GRAN MAT x10^3(ANC) 2.46 10*3/uL 1.99-6.95 (test code = 8839632463) IMM GRAN x10^3 (test 0.05 10*3/uL 0-0.06 code = 2899312888) LYMPH x10^3 (test code 1.48 10*3/uL 1.09-3.23 = 731-0) MONO x10^3 (test code 0.61 10*3/uL 0.36-1.02 = 742-7) EOS x10^3 (test code = 0.03 10*3/uL 0.06-0.53 L 711-2) BASO x10^3 (test code 0.01-0.09 = 704-7) Lab Interpretation Abnormal (test code = 75050-3) [facility] WITH [id number] 06:57:57 Test Item Value Reference Range Interpretation [...] RDW-SD (test code = 38.6 fL 38.5-51.6 14946-7) RDW-CV (test code = 12.3 % 12.1-15.4 788-0) PLT (test code = See_Comment [Automated 777-3) message] The sy stem which generated this result transmitted reference range : 150 - 328 10*3/ ?L. The reference r helen was not used to interpret this result as normal/abnormal . MPV (test code = 10.1 fL 9.8-13 58731-5) NRBC/100 WBC (test See_Comment [Automat ed code = 6516287992) message] The system which generated this result transmitted reference range : 0.0 - 10.0 /100 WBCs. The refer ence range was not u sed to interpret th is result as normal/abnormal . NRBC x10^3 (test code See_Comment [Auto mated = 7179049964) message] The s ystem which generated this result transmitted reference range : 10*3/?L. The reference range was not used to interpret this result as normal/abnormal . GRAN MAT (NEUT) % 53.0 % (test code = 770-8) IMM GRAN % (test code 1.10 % = 7180079374) LYMPH % (test code = 31.8 % 736-9) MONO % (test code = 13.1 % 5905-5) EOS % (test code = 0.6 % 713-8) BASO % (test code = 0.4 % 706-2) GRAN MAT x10^3(ANC) 2.46 10*3/uL 1.99-6.95 (test code = 6880368453) IMM GRAN x10^3 (test 0.05 10*3/uL 0-0.06 code = 1684788982) LYMPH x10^3 (test code 1.48 10*3/uL 1.09-3.23 = 731-0) MONO x10^3 (test code 0.61 10*3/uL 0.36-1.02 = 742-7) EOS x10^3 (test code = 0.03 10*3/uL 0.06-0.53 L 711-2) BASO x10^3 (test code 0.01-0.09 = 704-7) Lab Interpretation Abnormal (test code = 59139-8) [facility] Whole [id number] 21:25:38 Test Item Value Reference Range Interpretation Comments LACTIC ACID (test code = 0.77 mmol/L 0.5-2.2 6853202635) Lab Interpretation (test code = Normal 33136-3) [facility] Acid Whole [id number] 21:25:38 Test Item Value Reference Range Interpretation Comments LACTIC ACID (test code = 0.77 mmol/L 0.5-2.2 3134997108) Lab Interpretation (test code = Normal 42720-2) [facility] Acid Whole [id number] 21:25:38 Test Item Value Reference Range Interpretation Comments LACTIC ACID (test code = 0.77 mmol/L 0.5-2.2 1034866858) Lab Interpretation (test code = Normal 12303-4[facility] [id number] 21:25:38 Test Item Value Reference Range Interpretation Comments LACTIC ACID (test code = 0.77 mmol/L 0.5-2.2 2467244356) Lab Interpretation (test code = Normal 38364-7) [facility] Acid Whole Eajlf4517-95-25 21:25:38 Test Item Value Reference Range Interpretation Comments LACTIC ACID (test code = 0.77 mmol/L 0.50-2.20 2275063366) Lab Interpretation (test code = Normal 43159-8) [facility] fluid culture + gram zvsux8420-14-09 20:31:19 Test Item Value Reference Range Interpretation Comments Result (test code = 6463-4) No growth Gram Stain Result (test No organisms seen code = 1123) [facility] fluid culture + gram qrpnr2085-42-90 20:31:19 Test Item Value Reference Range Interpretation Comments Result (test code = 6463-4) No growth Gram Stain Result (test No organisms seen code = 1123) [facility] fluid culture + gram syqaa5212-87-16 20:31:19 Test Item Value Reference Range Interpretation Comments Result (test code = 6463-4) No growth Gram Stain Result (test No organisms seen code = 1123) [facility] fluid culture + gram [id number] 20:31:19 Test Item Value Reference Range Interpretation Comments Result (test code = 6463-4) No growth Gram Stain Result (test No organisms seen code = 1123) [facility] fluid culture + gram fshgr2804-11-76 20:31:19 Test Item Value Reference Range Interpretation Comments Result (test code = 6463-4) No growth Gram Stain Result (test No organisms seen code = 1123) [facility] fluid culture + gram [id number] 20:31:19 Test Item Value Reference Range Interpretation Comments Result (test code = 6463-4) No growth Gram Stain Result (test No organisms seen code = 1123) [facility] FLUID CULTURE + GRAM [id number] 20:31:19 Test Item Value Reference Range Interpretation Comments CULTURE (BEAKER) (test code No growth = 1095) GRAM STAIN RESULT (BEAKER) <1+ WBCs (test code = 1123) GRAM STAIN RESULT (BEAKER) No organisms seen (test code = 94546) COMPREHENSIVE METABOLIC [id number] 05:27:55 Test Item Value Reference Range Interpretation [...] not appl icable for dialysis patien ts Mattress Inspector ID - MERRY MCBC W/PLT COUNT & AUTO [id number] 05:18:09 Test Item Value Reference Range Interpretation [...] (BEAKER) (test code = 2801) ANG, ABSCESS [id number] 08:52:00Reason for exam:->bilioma [facility] 1960 Sex: MFINAL [...] the patient's medical record by the nurse. Crystal Lapper: Robel Elizalde MD. Landscape Management Technician: Theresa Doe MD (Fellow) Approach: Upper abdomen, [...] collection. The tract wasdilated and a 8.5 Togolese drainage catheter advanced over with pigtail formed [...] collection drainage with placement of a 8.5 Togolese pigtail drainage catheter as detailed above. Signed: [...] not appl icable for dialysis patien ts Mattress Inspector ID - PIAYA LCBC W/PLT COUNT & AUTO [id number] 04:05:39 Test Item Value Reference Range Interpretation [...] PERCENT (BEAKER) (test code = 2801) PROTHROMBIN TIME/[id number] 06:26:26 Test Item Value Reference Range Interpretation Comments PROTIME (BEAKER) 15.1 seconds 11.9-14.2 H (test code = 759) INR (BEAKER) (test 1.26 See_Comment [Automat ed message] code = 370) The system Vysr generated this result transmitted ref erence range: [...] not appl icable for dialysis patien ts Mattress Inspector ID - YOU WCBC W/PLT COUNT & AUTO [id number] 05:34:36 Test Item Value Reference Range Interpretation [...] SARS-Co V-2 (test code = target nucleic 05981-6) acids are not detected in thi s [...] revoked sooner. Fact Sheet for Healthcare Providers: https://www.[employer]/Documents/Xp ert%20Xpress%20SAR S%20CoV-2/Fact%20S heets/302-3802%20S ARS-COV-2%20HEALTH CARE%20PROVIDERS%2 0FACT%20SHEET.pdf Fact Sheet for Healthcare Patients: https://www.[employer]/Documents/Xp ert%20Xpress%20SAR S%20CoV-2/Fact%20S heets/302-3801%20S ARS-COV-2%20PATIEN T%20FACT%20SHEET.p df Lab Interpretation Normal (test code = 00083-9) [facility]2022-05-15 12:45:15 Test Item Value Reference Interpretation Comments Range SARS-COV2/RT-PCR Negative Negative The SARS-Co V-2 (test code = target nucleic 88103-1) acids are not detected in thi s [...] revoked sooner. Fact Sheet for Healthcare Providers: https://www.[employer]/Documents/Xp ert%20Xpress%20SAR S%20CoV-2/Fact%20S heets/302-3802%20S ARS-COV-2%20HEALTH CARE%20PROVIDERS%2 0FACT%20SHEET.pdf Fact Sheet for Healthcare Patients: https://wwwBackchannelmedia/Documents/Xp ert%20Xpress%20SAR S%20CoV-2/Fact%20S heets/302-3801%20S ARS-COV-2%20PATIEN T%20FACT%20SHEET.p df Lab Interpretation Normal (test code = 49289-6) [facility]Asymptomatic ONLY)2022-05-15 12:45:15 Test Item Value Reference Interpretation Comments Range SARS-COV2/RT-PCR Negative Negative The SARS-Co V-2 (test code = target nucleic 47771-8) acids are not detected in thi s [...] revoked sooner. Fact Sheet for Healthcare Providers: https://www.[employer]/Documents/Xp ert%20Xpress%20SAR S%20CoV-2/Fact%20S heets/302-3802%20S ARS-COV-2%20HEALTH CARE%20PROVIDERS%2 0FACT%20SHEET.pdf Fact Sheet for Healthcare Patients: https://wwwBackchannelmedia/Documents/Xp ert%20Xpress%20SAR S%20CoV-2/Fact%20S heets/302-3801%20S ARS-COV-2%20PATIEN T%20FACT%20SHEET.p df Lab Interpretation Normal (test code = 16075-3) [facility]Asymptomatic ONLY)2022-05-15 12:45:15 Test Item Value Reference Interpretation Comments Range SARS-COV2/RT-PCR Negative Negative The SARS-Co V-2 (test code = target nucleic 98115-2) acids are not detected in thi s [...] revoked sooner. Fact Sheet for Healthcare Providers: https://www.[employer]/Documents/Xp ert%20Xpress%20SAR S%20CoV-2/Fact%20S heets/302-3802%20S ARS-COV-2%20HEALTH CARE%20PROVIDERS%2 0FACT%20SHEET.pdf Fact Sheet for Healthcare Patients: https://wwwBackchannelmedia/Documents/Xp ert%20Xpress%20SAR S%20CoV-2/Fact%20S heets/302-3801%20S ARS-COV-2%20PATIEN T%20FACT%20SHEET.p df Lab Interpretation Normal (test code = 15084-8) [facility]Asymptomatic ONLY)2022-05-15 12:45:15 Test Item Value Reference Interpretation Comments Range SARS-COV2/RT-PCR Negative Negative The SARS-Co V-2 (test code = target nucleic 59490-6) acids are not detected in thi s [...] revoked sooner. Fact Sheet for Healthcare Providers: https://www.[employer]/Documents/Xp ert%20Xpress%20SAR S%20CoV-2/Fact%20S heets/302-3802%20S ARS-COV-2%20HEALTH CARE%20PROVIDERS%2 0FACT%20SHEET.pdf Fact Sheet for Healthcare Patients: https://www.[employer]/Documents/Xp ert%20Xpress%20SAR S%20CoV-2/Fact%20S heets/302-3801%20S ARS-COV-2%20PATIEN T%20FACT%20SHEET.p df Lab Interpretation Normal (test code = 89930-3) [facility]Asymptomatic ONLY)2022-05-15 12:45:15 Test Item Value Reference Interpretation Comments Range SARS-COV2/RT-PCR Negative Negative The SARS-Co V-2 (test code = target nucleic 37382-0) acids are not detected in thi s [...] revoked sooner. Fact Sheet for Healthcare Providers: https://www.[employer]/Documents/Xp ert%20Xpress%20SAR S%20CoV-2/Fact%20S heets/302-3802%20S ARS-COV-2%20HEALTH CARE%20PROVIDERS%2 0FACT%20SHEET.pdf Fact Sheet for Healthcare Patients: https://www.[employer]/Documents/Xp ert%20Xpress%20SAR S%20CoV-2/Fact%20S heets/302-3801%20S ARS-COV-2%20PATIEN T%20FACT%20SHEET.p df Lab Interpretation Normal (test code = 85772-9) [facility])2022-05-15 12:45:15 Test Item Value Reference Range Interpretation Comments SARS-COV2/RT-PCR Negative Negative The SARS-Co V-2 target (test code = nucleic acids a re not 7126199) detected in thi s specimen. Negative result [...] revoked sooner. Fact Sheet for Healthcare Providers: https://www.[employer] m/Documents/Xpert%20Xpress%20SARS%20CoV-2/Fact%20Sheets/302-3802%42XNDS-ESC-8%20 HEALTHCARE%20PROVIDERS%20FACT%20SHEET.pdf Fact Sheet for Healthcare Patients: https://www.[employer]/Documents/Xpert%20Xp ress%20SARS%20CoV-2/Fact%20Sheets/302-3801%49QJHG-NOH-7%20PATIENT%20FACT%20SHEET .ukcVHDULFWOU3533-40-69 02:48:18 Test Item Value Reference Range Interpretation Comments MAGNESIUM (BEAKER) (test code = 1.9 mg/dL 1.6-2.6 627) Mattress Inspector ID - WALLY EFDGUUTQXSO8501-16-01 02:48:18 Test Item Value Reference Range Interpretation Comments PHOSPHORUS (BEAKER) (test code = 2.3 mg/dL 2.3-4.7 604) Mattress Inspector ID - WALLY MHEPATIC FUNCTION [id number] 02:48:18 Test Item Value Reference Range Interpretation [...] (test code = 28 U/L 6-55 347) Mattress Inspector ID - WALLY MBASIC METABOLIC [id number] 02:48:17 Test Item Value Reference Range Interpretation [...] not appl icable for dialysis patien ts Mattress Inspector ID - WALLY MPROTHROMBIN TIME/[id number] 01:51:51 Test Item Value Reference Range Interpretation Comments PROTIME (BEAKER) 13.9 seconds 11.9-14.2 (test code = 759) INR (BEAKER) (test 1.13 See_Comment [Automat ed message] code = 370) The system Vysr generated this result transmitted ref erence range: <=5.90. The reference range was not used to int erpret this result as normal/abnormal . RECOMMENDED COUMADIN/WARFARIN INR THERAPY RANGESSTANDARD DOSE: 2.0 - 3.0 Includes: PROPHYLAXIS for venous thrombosis, systemic embolization; TREATMENT for venous thrombosis and/or pulmonary embolus.HIGH RISK: Target INR is 2.5-3.5 for patients with mechanical heart valves.CBC W/PLT COUNT & AUTO [id number] 01:43:47 Test Item Value Reference Range Interpretation [...] (BEAKER) (test code = 2801) BASIC METABOLIC [id number] 04:05:58 Test Item Value Reference Range Interpretation [...] not appl icable for dialysis patien ts Mattress Inspector ID - YOU [id number] 04:05:58 Test Item Value Reference Range Interpretation Comments MAGNESIUM (BEAKER) (test code = 2.2 mg/dL 1.6-2.6 627) Mattress Inspector ID - YOU WLIPID [id number] 04:05:58 Test Item Value Reference Range Interpretation [...] Borderline 130-159 High 160-189 Very High >=190 Mattress Inspector KARO ORTA WHEPATIC FUNCTION [id number] 04:05:58 Test Item Value Reference Range Interpretation [...] (test code = 54 U/L 6-55 347) Mattress Inspector ID Anatoliy ORTA WCBC W/PLT COUNT & AUTO [id number] 03:45:31 Test Item Value Reference Range Interpretation [...] PERCENT (BEAKER) (test code = 2801) CT, [id number] 20:34:00Unlisted Reason for Exam - Click Yes and Enter Reason Below->NoIs this for enterography?->NoWill this procedure require oral contrast?->No [facility] 1960 Sex: MFINAL REPORT [...] not appl icable for dialysis patien ts Mattress Inspector ID - MERRY [facility] [place] ONLY)2022-05-10 03:55:35 Test Item Value Reference [...] SARS-Co V-2 (test code = target nucleic 52200-4) acids are not detected in thi s [...] revoked sooner. Fact Sheet for Healthcare Providers: https://www.[employer]/Documents/Xp ert%20Xpress%20SAR S%20CoV-2/Fact%20S heets/302-3802%20S ARS-COV-2%20HEALTH CARE%20PROVIDERS%2 0FACT%20SHEET.pdf Fact Sheet for Healthcare Patients: https://www.[employer]/Documents/Xp ert%20Xpress%20SAR S%20CoV-2/Fact%20S heets/302-3801%20S ARS-COV-2%20PATIEN T%20FACT%20SHEET.p df Lab Interpretation Normal (test code = 54619-5) [facility]2022-05-10 03:50:54 Test Item Value Reference Range Interpretation Comments SARS-COV2/RT-PCR Negative Negative The SARS-Co V-2 target (test code = nucleic acids a re not 1014035) detected in thi s specimen. Negative result [...] revoked sooner. Fact Sheet for Healthcare Providers: https://www.[employer] m/Documents/Xpert%20Xpress%20SARS%20CoV-2/Fact%20Sheets/302-3802%34SLWZ-QBG-5%20 HEALTHCARE%20PROVIDERS%20FACT%20SHEET.pdf Fact Sheet for Healthcare Patients: https://www.[employer]/Documents/Xpert%20Xp ress%20SARS%20CoV-2/Fact%20Sheets/302-3801%36QDCJ-LPK-9%20PATIENT%20FACT%20SHEET .pdf- XR CHEST 2 [id number] 00:00:00 [facility] 1960 Sex: M FAX: Jordan Ledezma MD [phone] [place]: St: REG FAX: Ashvin Cintron MD [phone] Name: CARROL ANNE [facility] : 1960 Age/S: 61/M [address] [place] [address] Unit #: [id number] Loc: [place] [address] Phys: Ashvin Carter MD Acct: [id number] Dis Date: Status: REG CLI PHONE #: [phone] Exam Date: 01/07/2022 1506 FAX #: [phone] Reason: CLL EXAMS: CPT CODE: [id number] XR CHEST 2 V 80127 PROCEDURE INFORMATION: Exam: XR Chest Exam date [...] S: 01/07/2022 (1749) PAGE 1 Signed Report Notes Date/Time Note Provider Source 2023-04-06 17:43:01 7416-02-65S85:43:01Formatting of Sandra Kitchen RN [facility] this note might be different from the original.Discharge instructions reviewed with patient. Follow up precautions, when to return to the ED for worsening of signs and symptoms. Patient verbalizes understanding of instructions given, denies any questions, ambulatory from the ED in NAD. 31132-6Yicjxouuw department AukiGV7037-59-60W11:43:08Emergen department NoteTXT1.2.840.823868.1.13.104.2 .7.2.348735|[id number] e for patient bcdw95394-2XkstBA421601583Ugaygz M [place] RNUT[address]TXTX[address] 7104TJHAMQJTCXTKPDQXDVROCH2976-5 7:43:081.2.840.856455.1.72 .3.15|1.2.840.996021.1.13.104.2. 7.2.727879_1865124697 2023-04-06 16:45:00 4977-09-78H80:45:00Formatting [facility] this note might be different from the original.IR at bedside for nephrostomy tube removal. 62386-5Zifsjajtr department CnpsFS8401-14-28V36:51:53[facility] NoteTXT1.2.840.760798.1.13.104.2 .7.2.596288|[id number] e for patient outt49848-4RwxhGDILIAPVHA[address]TXTX[address] 5600IZMDCWAOTMMTLXERXWWSXR4482-3 04-06T16:51:531.2.840.973193.1.72 .3.15|1.2.840.872041.1.13.104.2. 7.2.727879_1865102311 2023-04-06 16:29:33 7396-17-38D35:29:33[facility] this [facility] might be different from the original.Patient is not co any pain at this time. Pain medication held at this time. 65558-4Epotxfnst department ZhndKA6685-99-62W33:30:08[facility] department NoteTXT1.2.840.605716.1.13.104.2 .7.2.750789|[id number] e for patient wbiv59516-5SineNQAFYSCAPG[address]TXTX[address] 9212SGSLQRKJSOTPCLHEURHVYC4975-6 6:30:081.2.840.422793.1.72 .3.15|1.2.840.299303.1.13.104.2. 7.2.727879_1865083611 2023-04-06 13:43:34 2469-27-65Y11:43:34Formatting of Maryse Tidwell RN [facility] this note might be different from the original.Carrol Anne is a 62 year old male presents to ED c/o green drainage from biliary drain. Pt reports it stopped draining for 2-3 weeks and started again "I think my stent is blocked so they sent me here to see the surgeon". Pt is aox4 with gcs 15 skin warm and dry resp even and unlabored. Pt to room for eval. 24300-4Evwijhzyp department Triage zwelHL5812-71-20C31:46:59Emergen department Triage noteTXT1.2.840.583864.1.13.104.2 .7.2.959965|[id number] e for patient ionk77176-7Elaeyejoi department QuwxLQ652241786Agrnx Nini RN[address] EtjnMgzftwhmwLagmfxqadEQXO991121 4346CYJYMIEYVYBYRZQKFIPLJV1841-3 3:46:591.2.840.103866.1.72 .3.15|1.2.840.962990.1.13.104.2. 7.2.727879_1864871165
[2023-07-27 17:06] LABS: Absolute Lymphocytes (CBC) 1.9 K/uL (0.7-4.9); Hematocrit 44.4 % (39.6-49.0); Lymphocytes % 40.5 % (15.3-44.8); MCV 86.9 fL (80-100); MPV 9.2 fL (7.6-11.3); Platelets 100 thou/uL (152-406); RBC Red Blood Cell Count 5.11 M/uL (4.33-5.43)
[2023-07-27] MEDS ORDERED: ONDANSETRON 4 MG/2 ML VIAL ONE ×2 (17:14→19:52)
[2023-07-27] MEDS ORDERED: MORPHINE 4 MG/ML SYR ONE (17:14)
[2023-07-27 17:23] LABS: Albumin 3.6 g/dL (3.4-5.0); Bilirubin Direct 0.2 mg/dL (0-0.2); Bilirubin Indirect, Calculated 0.5 mg/dL (0.2-0.8); Bilirubin Total 0.7 mg/dL (0.2-1.0); Magnesium 2.1 mg/dL (1.6-2.4); Troponin High Sensitivity 4.2 pg/mL (<58.9)
--- NOTE | 2023-07-27 17:29 | RAD REPORT ---
EXAM DESCRIPTION: Charley Single View07/27/2023 5:22 pm CLINICAL HISTORY: Chest pain COMPARISON: February 2023 FINDINGS: The lungs appear clear of acute infiltrate. The heart is normal size IMPRESSION: No acute abnormalities displayed
--- NOTE | 2023-07-27 18:13 | RAD REPORT ---
EXAM DESCRIPTION: CT - Chest For Pe Angio - 07/27/2023 6:02 pm CLINICAL HISTORY: Chest pain. CHEST PAIN COMPARISON: <Comparisons> TECHNIQUE: CT angiogram of the pulmonary arteries was performed with MIP. All CT scans are performed using dose optimization technique as appropriate and may include automated exposure control or mA/KV adjustment according to patient size. FINDINGS: No evidence of pulmonary thromboembolism. No acute aortic finding demonstrated. Mild linear atelectasis noted in both lung bases, greater on the right. No significant pericardial or pleural fluid. No concerning bony finding. IMPRESSION: No evidence of pulmonary thromboembolism. No acute lung findings.
--- NOTE | 2023-07-27 18:14 | RAD REPORT ---
EXAM DESCRIPTION: CT - Soft Tissue Neck W/Contr CLINICAL HISTORY: feels like there is something stuck in esophagus after biop Neck pain and swelling COMPARISON: <Comparisons> TECHNIQUE All CT scans are performed using dose optimization technique as appropriate and may includ e automated exposure control or mA/KV adjustment according to patient size. FINDINGS: Nasopharyngeal tissues are normal in appearance. Fossa Rosenmller are normal. Parapharyngeal fat triangles are symmetric. Tongue base structures are normal. Epiglottis and aryepiglottic folds are normal. Piriform sinuses are well aerated. The vocal cords are normal in appearance. Salivary glands are normal in appearance. Left thyroid lobe appears absent. Upper lung murray are clear. Included intracranial contents are unremarkable. IMPRESSION: No acute or pathologic abnormality is detected.
--- NOTE | 2023-07-27 18:16 | RAD REPORT ---
EXAM DESCRIPTION: CTAbdomen Pelvis W Contrast - 07/27/2023 6:02 pm CLINICAL HISTORY: Abdominal pain. PAIN COMPARISON: <Comparisons> TECHNIQUE: Biphasic CT imaging of the abdomen and pelvis was performed with 100 ml non-ionic IV cont rast. All CT scans are performed using dose optimization technique as appropriate and may include automated exposure control or mA/KV adjustment according to patient size. FINDINGS: Mild atelectasis is present in the lung bases. The liver, spleen, pancreas, adrenal glands and kidneys are within normal limits. Cholecystectomy wit h common duct stent in place. Mild intrahepatic pneumobilia. Pancreatic duct is mildly dilated. No bowel obstruction, free air, free fluid or abscess. Sigmoid diverticulosis coli is seen without di verticulitis. The appendix is normal. No evidence of significant lymphadenopathy. Bilateral exit foraminal narrowing is seen lower lumbar levels. Moderate lower lumbar spondylosis. IMPRESSION: No acute intra-abdominal or pelvic finding. Common duct stent is in expected place with mild pneumobilia and prominence of the pancreatic duct se en.
[2023-07-27] MEDS ORDERED: FAMOTIDINE 20 MG/2 ML VIAL IV ONE (18:42)
[2023-07-27] MEDS ORDERED: METOCLOPRAMIDE 10 MG/2mL INJ ONE (20:45)
[2023-07-27] MEDS ORDERED: DIPHENHYDRAMINE 50 MG/ML VIAL ONE (21:31)
--- NOTE | 2023-07-27 21:59 | EDPHYS ---
Physician Documentation [facility] Name: Wiley Anne Age: 62 yrs Sex: Male : 1960 Arrival Date: 07/27/2023 Time: 16:36 Bed 18 Private MD: Jordan Juarez ED Physician Kel Louis HPI: 07/27 18:11 This 62 yrs old Male presents to ER via Ambulatory with complaints of Chest Pain. kb 18:11 Patient is a 62-year-old male with a history of CLL who presents for pain in the center kb of his chest that started at 2 AM. States the pain lasted for 1 hour and resolved then started again at 11 AM lasted 1 hour and resolved. States it came back for the third time just prior to arrival so he came into make sure everything was okay. Reports he had an EGD with a biopsy of esophagus 2 days ago. Patient denies any abdominal pain. Patient does report that he feels like a flap is in his esophagus, like something is stuck. Patient also reports shortness of breath and pain upon inspiration.. Historical: - Allergies: 16:49 No Known Allergies; hb - PMHx: 16:49 CLL; Oral chemotherapy; hb - PSHx: 16:49 abcess D/C; Cholecystectomy; hb - Immunization history:: Adult Immunizations up to date. - Social history:: Smoking status: unknown. ROS: 18:09 Constitutional: Negative for fever, chills, and weight loss, kb 18:09 Cardiovascular: Positive for chest pain, 18:09 Respiratory: Positive for shortness of breath, 18:09 All other systems are negative, Exam: 16:51 Constitutional: This is a well developed, well nourished patient who is awake, alert, kb and in no acute distress. Head/Face: Normocephalic, atraumatic. ENT: Moist Mucous membranes Neck: Trachea midline, no thyromegaly or masses palpated, and no cervical lymphadenopathy. Supple, full range of motion without nuchal rigidity, or vertebral point tenderness. No Meningismus. Chest/axilla: Normal chest wall appearance and motion. Cardiovascular: Regular rate Respiratory: Respirations even and unlabored. No increased work of breathing. Talking in full sentences Abdomen/GI: Soft, non-tender. No distention Skin: Warm, dry with normal turgor. Normal color. MS/ Extremity: Pulses equal, no cyanosis. Neurovascular intact. Full, normal range of motion. Neuro: Awake and alert, GCS 15, oriented to person, place, time, and situation. Moves all extremities. Normal gait. 16:51 ECG was reviewed by the Attending Physician. Vital Signs: 16:41 BP 156 / 86; Pulse 74; Resp 20; Temp 98.3; Pulse Ox 97% on R/A; Pain 9/10; hb 18:10 BP 151 / 89; Pulse 59; Resp 16; Pulse Ox 96% on R/A; me1 18:30 BP 136 / 89; Pulse 60; Resp 16; Pulse Ox 95% on R/A; me1 19:00 BP 169 / 99; Pulse 59; Resp 17; Pulse Ox 95% on R/A; me1 19:45 BP 157 / 96; Pulse 60; Resp 17; Pulse Ox 95% on R/A; me1 19:45 BP 156 / 88; Pulse 58; Resp 17; Pulse Ox 95% on R/A; me1 22:00 BP 140 / 93; Pulse 70; Resp 17 S; Pulse Ox 96% on R/A; ha1 23:00 BP 131 / 97; Pulse 69; Resp 17 S; Pulse Ox 96% on R/A; ha1 16:41 Pain Scale: Adult hb MDM: 16:40 Patient medically screened. kb 18:10 Data reviewed: vital signs, nurses notes. kb 20:43 Consideration of Admission/Observation Patient was admitted/placed on observation. Escalation of care including admission/observation considered. Management of patient was discussed with the following: Hospitalist: Dr Shields. 20:44 Differential diagnosis: abnormal EKG, acute myocardial infarction, coronary artery kb disease esophagitis, pulmonary embolus, perforation. 21:42 ED course: Dr. sheilds evaluated patient and spoke with Dr. ADORNO. Recommends transfer to [facility] for evaluation from GI. Patient had stent placed at [facility]. 21:57 Management of patient was discussed with the following: Dr Tovar, hospitalist at [facility], accepts pt for transfer. Counseling: I had a detailed discussion with the patient and/or guardian regarding the historical points, exam findings, and any diagnostic results supporting the discharge/admit diagnosis, lab results, radiology results, the need to transfer to another facility, [facility] does not immediately have the required specialist. 07/27 16:44 Order name: Basic Metabolic Panel; Complete Time: 17:27 kb 07/27 16:44 Order name: CBC with Diff; Complete Time: 17:11 kb 07/27 16:44 Order name: LFT's; Complete Time: 17:27 kb 07/27 16:44 Order name: Magnesium; Complete Time: 17:27 kb 07/27 16:44 Order name: NT PRO-BNP; Complete Time: 17:27 kb 07/27 16:44 Order name: Troponin HS; Complete Time: 17:27 kb 07/27 19:37 Order name: Troponin HS; Complete Time: 20:09 kb 07/27 16:44 Order name: XRAY Chest (1 view); Complete Time: 17:31 kb 07/27 16:48 Order name: CT Chest For PE Angio; Complete Time: 18:18 kb 07/27 16:48 Order name: CT Abd/Pelvis - IV Contrast Only; Complete Time: 18:18 kb 07/27 16:50 Order name: CT Soft Tissue Neck W/contr; Complete Time: 18:18 kb 07/27 16:44 Order name: EKG; Complete Time: 16:45 kb 07/27 16:44 Order name: Cardiac monitoring; Complete Time: 21:58 kb 07/27 16:44 Order name: EKG - Nurse/Tech; Complete Time: 16:49 kb 07/27 16:44 Order name: IV Saline Lock; Complete Time: 16:59 kb 07/27 16:44 Order name: Labs collected and sent; Complete Time: 16:59 kb 07/27 16:44 Order name: O2 Per Protocol; Complete Time: 21:58 kb 07/27 16:44 Order name: O2 Sat Monitoring; Complete Time: 21:58 kb EC:51 Rate is 75 beats/min. Rhythm is regular. QRS [place] is Normal. [place] interval is normal at kb 150 msec. QRS interval is normal at 80 msec. QT interval is normal at 415 msec. Administered Medications: 17:04 Drug: morphine IVP or IV 4 mg IVP once over 4 mins Route: IVP; Infused Over: 4 mins; hb Site: right forearm; 18:22 Follow up: Response: No adverse reaction me1 17:04 Drug: Ondansetron IVP 4 mg IVP once; over 2 minutes Route: IVP; Site: right forearm; hb 18:23 Follow up: Response: No adverse reaction me1 18:31 Drug: Famotidine IVP 20 mg IVP once; dilute with 10 mL 0.9% NaCl; give over 2 minutes me1 Route: IVP; Site: right forearm; 19:14 Follow up: Response: No adverse reaction me1 19:42 Drug: Ondansetron IVP 4 mg IVP once; over 2 minutes Route: IVP; Site: right forearm; me1 19:48 Follow up: Response: No adverse reaction me1 20:34 Drug: metoCLOPramide IVP 10 mg IVP once; over 1 to 2 minutes Route: IVP; Site: right me1 forearm; 21:21 Follow up: Response: No adverse reaction me1 21:22 Follow up: Response: Nausea unchanged me1 21:21 Drug: diphenhydrAMINE IVP 25 mg IVP once Route: IVP; Site: right forearm; me1 21:22 Follow up: Response: No adverse reaction me1 Disposition: 07/28 20:02 Co-signature as Attending Physician, Kel Louis MD I reviewed the patient's care rn provided by the Advanced Practice Provider and agree with the diagnosis and treatment plan. Disposition Summary: 07/27/23 21:59 Transfer Ordered Notes: Transfer Location: [facility] Reason: Higher level of care kb Condition: Stable kb Problem: new kb Symptoms: are unchanged kb Accepting Physician: Dr Tovar(07/27/23 23:44) ha1 Diagnosis - Nausea with vomiting, unspecified kb - Chest pain, unspecified kb - Abnormal results of liver function studies kb Forms: - Medication Reconciliation Form kb - SBAR form kb Signatures: Dispatcher [employer] Silva Nielsen, FOSTER CARE THERAPIST-C FOSTER CARE THERAPIST-Ckb Kel Louis MD MD rn Baxter, Heather, RN RN Candace Galarza RN RN ha1 Sheryl Álvarez RN RN me1 Corrections: (The following items were deleted from the chart) 07/27 18:18 18:11 Patient is a 62-year-old male with a history of CLL who presents for pain in the kb center of his chest that started at 2 AM. States the pain lasted for 1 hour and resolved then started again at 11 AM lasted 1 hour and resolved. States it came back for the third time just prior to arrival so he came into make sure everything was okay. Reports he had an EGD with a biopsy of esophagus 2 days ago. Patient denies any abdominal pain. Patient does report that he feels like a flap is in his esophagus, like something is stuck.. kb 23:44 21:59 Dr Tovar kb ha1
--- NOTE | 2023-07-27 21:59 | ER ---
Nurse's Notes [facility] Name: Wiley Anne Age: 62 yrs Sex: Male : 1960 Arrival Date: 07/27/2023 Time: 16:36 Bed 18 Private MD: Jordan Juarez Diagnosis: Nausea with vomiting, unspecified;Chest pain, unspecified;Abnormal results of liver function studies Presentation: 07/27 16:41 Chief complaint: Chest pain, pain with breathing, SOB, and palpitations since last hb night. Coronavirus screen: At this time, the client does not indicate any symptoms associated with coronavirus-19. Ebola Screen: No symptoms or risks identified at this time. Initial Sepsis Screen: Does the patient meet any 2 criteria? No. Patient's initial sepsis screen is negative. Does the patient have a suspected source of infection? No. Patient's initial sepsis screen is negative. Risk Assessment: Do you want to hurt yourself or someone else? Patient reports no desire to harm self or others. Onset of symptoms was July 27, 2023. 16:41 Method Of Arrival: Ambulatory hb 16:41 Acuity: JASMIN 3 hb Historical: - Allergies: 16:49 No Known Allergies; hb - PMHx: 16:49 CLL; Oral chemotherapy; hb - PSHx: 16:49 abcess D/C; Cholecystectomy; hb - Immunization history:: Adult Immunizations up to date. - Social history:: Smoking status: unknown. Screenin:08 [facility] ED Fall Risk Assessment (Adult) History of falling in the last 3 months, me1 including since admission No falls in past 3 months (0 pts) Confusion or Disorientation No (0 pts) Intoxicated or Sedated No (0 pts) Impaired Gait No (0 pts) Mobility Assist Device Used No (0 pt) Altered Elimination No (0 pt) Score/Fall Risk Level 0 - 2 = Low Risk Oriented to surroundings, Provided non-skid footwear, Hourly rounding (assess needs \T\ fall precautionary measures) done. Abuse screen: Denies threats or abuse. Nutritional screening: No deficits noted. Tuberculosis screening: No symptoms or risk factors identified. Assessment: 18:08 General: Appears comfortable, well groomed, well developed, well nourished, Behavior is me1 calm, cooperative, appropriate for age, Reports Chest pain, pain with breathing, SOB, and palpitations since last night. Pain: Complains of pain in chest Pain does not radiate. Pain currently is 3 out of 10 on a pain scale. Quality of pain is described as tender, Pain began 1 day ago. Is continuous. Neuro: Level of Consciousness is awake, alert, obeys commands, Oriented to person, place, time, situation, Appropriate for age. Cardiovascular: Capillary refill < 3 seconds Patient's skin is warm and dry. Respiratory: Airway is patent Respiratory effort is even, unlabored, Respiratory pattern is regular, symmetrical. 22:01 General: Appears comfortable, Behavior is cooperative. Pain: Denies pain. Neuro: Level ha1 of Consciousness is awake, alert, obeys commands, Oriented to person, place, time, situation. Cardiovascular: Denies chest pain, Capillary refill < 3 seconds Patient's skin is warm and dry. Respiratory: Airway is patent Respiratory effort is even, unlabored, Respiratory pattern is regular, symmetrical. GI: Abdomen is flat, non-distended, Bowel sounds present X 4 quads. Reports nausea, vomiting. 22:55 Reassessment: report given to MOSES Cazares. ha1 Vital Signs: 16:41 BP 156 / 86; Pulse 74; Resp 20; Temp 98.3; Pulse Ox 97% on R/A; Pain 9/10; hb 18:10 BP 151 / 89; Pulse 59; Resp 16; Pulse Ox 96% on R/A; me1 18:30 BP 136 / 89; Pulse 60; Resp 16; Pulse Ox 95% on R/A; me1 19:00 BP 169 / 99; Pulse 59; Resp 17; Pulse Ox 95% on R/A; me1 19:45 BP 157 / 96; Pulse 60; Resp 17; Pulse Ox 95% on R/A; me1 19:45 BP 156 / 88; Pulse 58; Resp 17; Pulse Ox 95% on R/A; me1 22:00 BP 140 / 93; Pulse 70; Resp 17 S; Pulse Ox 96% on R/A; ha1 23:00 BP 131 / 97; Pulse 69; Resp 17 S; Pulse Ox 96% on R/A; ha1 16:41 Pain Scale: Adult hb ED Course: 16:39 Patient arrived in ED. mr 16:39 Jordan Juarez MD is Private Physician. mr 16:40 Silva Hardin, [facility]. kb 16:40 Kel Louis MD is Attending Physician. kb 16:49 Triage completed. hb 16:54 Inserted saline lock: 20 gauge in right forearm, using aseptic technique. Blood hb collected. 16:59 Basic Metabolic Panel Sent. hb 16:59 CBC with Diff Sent. hb 16:59 LFT's Sent. hb 16:59 Magnesium Sent. hb 16:59 NT PRO-BNP Sent. hb 16:59 Troponin HS Sent. hb 16:59 Arm band placed on left wrist. hb 17:22 XRAY Chest (1 view) In Process Unspecified. EDMS 17:56 Sheryl Álvarez, RN is Primary Nurse. me1 18:04 CT Chest For PE Angio In Process Unspecified. EDMS 18:04 CT Abd/Pelvis - IV Contrast Only In Process Unspecified. EDMS 18:04 CT Soft Tissue Neck W/contr In Process Unspecified. EDMS 18:08 No provider procedures requiring assistance completed. Patient maintains SpO2 me1 saturation greater than 95% on room air. 18:08 Patient has correct armband on for positive identification. Bed in low position. Call ks1 light in reach. Side rails up X2. Provided Education on: POC. Verbalized understanding. . Client placed on continuous cardiac and pulse oximetry monitoring. NIBP monitoring applied. child monitor on. 19:45 Troponin HS Sent. me1 21:[address], spoke with Gianna. 21:58 Pt accepted for transfer to [facility] Juana Meeks RM: [id number] by Guy Perez per Gianna Collins. 22:00 Report received from MOSES Dyer. ha1 22:25 [facility] called for transport. ETA 45min-60 min. cm10 23:43 Patient transferred, IV remains in place. ha1 Administered Medications: 17:04 Drug: morphine IVP or IV 4 mg IVP once over 4 mins Route: IVP; Infused Over: 4 mins; hb Site: right forearm; 18:22 Follow up: Response: No adverse reaction me1 17:04 Drug: Ondansetron IVP 4 mg IVP once; over 2 minutes Route: IVP; Site: right forearm; hb 18:23 Follow up: Response: No adverse reaction me1 18:31 Drug: Famotidine IVP 20 mg IVP once; dilute with 10 mL 0.9% NaCl; give over 2 minutes me1 Route: IVP; Site: right forearm; 19:14 Follow up: Response: No adverse reaction me1 19:42 Drug: Ondansetron IVP 4 mg IVP once; over 2 minutes Route: IVP; Site: right forearm; me1 19:48 Follow up: Response: No adverse reaction me1 20:34 Drug: metoCLOPramide IVP 10 mg IVP once; over 1 to 2 minutes Route: IVP; Site: right me1 forearm; 21:21 Follow up: Response: No adverse reaction me1 21:22 Follow up: Response: Nausea unchanged me1 21:21 Drug: diphenhydrAMINE IVP 25 mg IVP once Route: IVP; Site: right forearm; me1 21:22 Follow up: Response: No adverse reaction me1 Medication: 18:08 VIS not applicable for this client. me1 Outcome: 21:59 ER care complete, transfer ordered by MD. leal 23:30 Transferred by ground EMS to [facility], [facility] 23:30 Condition: stable 23:30 Discharge instructions given to patient, Instructed on the need for transfer, Demonstrated understanding of instructions, 23:44 Patient left the ED. [facility] Signatures: Dispatcher [employer] EDMS Silva Hardin, FARM MANAGEMENT SUPERVISOR-C FARM MANAGEMENT SUPERVISOR-Ckb Nancy Draper, Reg Reg mr ElKiersten RN RN China Reyes Candace Galarza RN RN 1 Iveth John RN RN 10 Sheryl Álvarez RN RN ks1 Corrections: (The following items were deleted from the chart) 16:59 16:41 Pulse 74bpm; Resp 20bpm; Pulse Ox 97% RA; Temp 98.3F; Pain 9/10, Adult; hb hb 18:05 16:41 Chief complaint: Chest pain, pain with breathing, SOB, and palpitations since ks1 last night. hb
[2023-07-27 23:49] VITALS: TEMP 98.3
[2023-07-27 23:57] VITALS: O2SAT 96
[2023-07-27 23:59] VITALS: BP 131/97
--- NOTE | 2023-08-01 17:00 | EKG ---
Test Date: 2023-07-27 Test Time: 16:46:13 Drug And Alcohol Treatment Specialist: HB MEASUREMENT RESULTS: Intervals: Rate: 75 NM: 150 QRSD: 80 QT: 372 QTc: 415 [place]: P: 75 NM: 150 QRS: 65 T: 76 INTERPRETIVE STATEMENTS: Normal sinus rhythm Normal ECG Compared to ECG 02/17/2023 08:41:23 Sinus tachycardia no longer present Electronically Signed On 08-01-23 16:54:09 RODEO RIDER by Andrew Trevino
== END 2023-07-27 23:44 | disposition short-term general hospital (02) ==
LOC: ER 16:36
DX: R07.89 Other chest pain (principal); R11.2 Nausea with vomiting, unspecified; R94.5 Abnormal results of liver function studies; Z85.6 Personal history of leukemia
CPT/HCPCS: 93005; 85025; 80048; 36415; 83735; 80076; 84484 ×2; 83880; 70491; 71275; 74177; 71045; 96375; 96374; 99285; Q9967; J2765; J1200; J2405 ×2

== ENCOUNTER 2023-08-12 05:23 | Emergency (ER) | payer OTHER ==
[2023-08-12 06:18] LABS: Absolute Lymphocytes (CBC) 0.5 K/uL (0.7-4.9); Hematocrit 44.9 % (39.6-49.0); Lymphocytes % 8.1 % (15.3-44.8); MCV 88.5 fL (80-100); MPV 8.3 fL (7.6-11.3); Platelets 103 thou/uL (152-406); RBC Red Blood Cell Count 5.07 M/uL (4.33-5.43)
[2023-08-12 06:34] LABS: Albumin 3.7 g/dL (3.4-5.0); Bilirubin Total 0.7 mg/dL (0.2-1.0); Potassium 3.7 mEq/L (3.5-5.1); Protein, Total 7.1 g/dL (6.4-8.2); Troponin High Sensitivity 4.6 pg/mL (<58.9)
[2023-08-12] MEDS ORDERED: KETOROLAC 30 MG/ML INJ ONE (06:36)
[2023-08-12] MEDS ORDERED: dexAMETHasone 10 MG/ML VIAL ONE (06:36)
[2023-08-12] MEDS ORDERED: NA CHLORIDE 0.9% 1,000 ML ONE (06:36)
[2023-08-12] MEDS ORDERED: ONDANSETRON 4 MG/2 ML VIAL ONE (06:37)
[2023-08-12] MEDS ORDERED: MORPHINE 4 MG/ML SYR ONE ×2 (06:45→07:15)
[2023-08-12] MEDS ORDERED: DIAZEPAM 5 MG TABLET ONE (06:45)
--- NOTE | 2023-08-12 07:30 | RAD REPORT ---
EXAM DESCRIPTION: CT - C Spine Wo Con - 08/12/2023 7:04 am CLINICAL HISTORY: Right arm radiculopathy COMPARISON: 2017 TECHNIQUE: Computed axial tomography of the cervical spine were obtained with sagittal and coronal r econstruction images generated and reviewed. All CT scans are performed using dose optimization technique as appropriate and may include automated exposure control or mA/KV adjustment according to patient size. FINDINGS: A cervical fracture is not seen. Mild posterior subluxation C5 on C6 is unchanged from 2017. Development of slight anterior subluxatio n C7 on T1. Chronic scoliosis involves the neck. No dislocation. Disc bulge and osteophytes C4-5 result in moderate narrowing left neural foramina. Small to moderate central disc herniation extends inferiorly. Left posterior-lateral disc herniation suspected C5-6 which narrows the left aspect of thecal sac. Os teophytes are present. Moderate narrowing of the neural foramina. Small right posterolateral disc herniation is suspected at C6-7. IMPRESSION: A cervical fracture is not seen. Disc herniations as described above. A nonemergent MRI cervical spine would be helpful for further ev aluation
--- NOTE | 2023-08-12 07:35 | EDPHYS ---
Physician Documentation [facility] Name: Wiley Anne Age: 62 yrs Sex: Male : 1960 Arrival Date: 08/12/2023 Time: 05:23 Bed 7 Private MD: Giovanny Dove HPI: 08/12 05:51 This 62 yrs old Male presents to ER via Ambulatory with complaints of Arm bubba Pain. 05:51 The patient or guardian complains of decreased range of motion, pain, that is acute. bubba The complaints affect the right antecubital area. Context: The problem was sustained at an unknown location, resulted from unknown cause. Onset: The symptoms/episode began/occurred 3 day(s) ago. Treatment prior to arrival includes: prescription medications, nsaids. Modifying factors: The symptoms are alleviated by remaining still, the symptoms are aggravated by movement, bending arm. Associated signs and symptoms: Pertinent positives: pain. The patient has experienced similar episodes in the past, several times. Historical: - Allergies: 05:43 No Known Allergies; pf1 - PMHx: 05:43 CLL; Oral chemotherapy; pf1 - PSHx: 05:43 abcess D/C; Cholecystectomy; pf1 - Immunization history:: Adult Immunizations up to date, Client reports having NOT received the Covid vaccine. Last tetanus immunization: < 5 years ago Flu vaccine is not up to date. - Social history:: Smoking status: Patient denies any tobacco usage or history of. Patient uses street drugs, marijuana, Patient/guardian denies using alcohol. ROS: 05:52 Constitutional: Negative for fever, chills, and weight loss, Eyes: Negative for injury, bubba pain, redness, and discharge, ENT: Negative for injury, pain, and discharge, Cardiovascular: Negative for chest pain, palpitations, and edema, Respiratory: Negative for shortness of breath, cough, wheezing, and pleuritic chest pain, Abdomen/GI: Negative for abdominal pain, nausea, vomiting, diarrhea, and constipation, Back: Negative for injury and pain, : Negative for injury, bleeding, discharge, and swelling, Skin: Negative for injury, rash, and discoloration, Neuro: Negative for headache, weakness, numbness, tingling, and seizure, Psych: Negative for depression, anxiety, suicide ideation, homicidal ideation, and hallucinations, Allergy/Immunology: Negative for hives, rash, and allergies, Endocrine: Negative for neck swelling, polydipsia, polyuria, polyphagia, and marked weight changes, Hematologic/Lymphatic: Negative for swollen nodes, abnormal bleeding, and unusual bruising, 05:52 Neck: Positive for pain at rest, stiffness, 05:52 MS/extremity: Positive for decreased range of motion, pain, of the right antecubital area and right elbow, Exam: 05:52 Constitutional: This is a well developed, well nourished patient who is awake, alert, bubba and in no acute distress. Head/Face: Normocephalic, atraumatic. Eyes: Pupils equal round and reactive to light, extra-ocular motions intact. Lids and lashes normal. Conjunctiva and sclera are non-icteric and not injected. Cornea within normal limits. Periorbital areas with no swelling, redness, or edema. ENT: Nares patent. No nasal discharge, no septal abnormalities noted. Tympanic membranes are normal and external auditory canals are clear. Oropharynx with no redness, swelling, or masses, exudates, or evidence of obstruction, uvula midline. Mucous membranes moist. Chest/axilla: Normal chest wall appearance and motion. Nontender with no deformity. No lesions are appreciated. Cardiovascular: Regular rate and rhythm with a normal S1 and S2. No gallops, murmurs, or rubs. Normal PMI, no JVD. No pulse deficits. Respiratory: Lungs have equal breath sounds bilaterally, clear to auscultation and percussion. No rales, rhonchi or wheezes noted. No increased work of breathing, no retractions or nasal flaring. Abdomen/GI: Soft, non-tender, with normal bowel sounds. No distension or tympany. No guarding or rebound. No evidence of tenderness throughout. Back: No spinal tenderness. No costovertebral tenderness. Full range of motion. Male : Normal genitalia with no discharge or lesions. Skin: Warm, dry with normal turgor. Normal color with no rashes, no lesions, and no evidence of cellulitis. Neuro: Awake and alert, GCS 15, oriented to person, place, time, and situation. Cranial nerves II-XII grossly intact. Motor strength 5/5 in all extremities. Sensory grossly intact. Cerebellar exam normal. Normal gait. Psych: Awake, alert, with orientation to person, place and time. Behavior, mood, and affect are within normal limits. 05:52 Neck: External neck: is normal, no acute changes, C-spine: no acute changes, Trachea: is midline with no obvious abnormalities, no acute changes, ROM/movement: limited range of motion, that is mild, in any direction, Meningeal signs: are not present, Kernig's sign is negative, Brudzinski's sign is negative, nuchal rigidity, is not appreciated, Lymph nodes: no appreciated lymphadenopathy, 06:19 ECG was reviewed by the Attending Physician. [facility] Vital Signs: 05:35 BP 148 / 90; Pulse 105; Resp 18; Temp 97.9; Pulse Ox 94% ; Weight 58.97 kg; Height 5 pf1 ft. 2 in. ; Pain 10/10; 07:07 BP 123 / 79; Pulse 97; Resp 16; Pulse Ox 93% on R/A; km8 07:53 BP 128 / 78; Pulse 91; Resp 16; Pulse Ox 99% on R/A; iw 05:35 Body Mass Index 23.78 (58.97 kg, 157.48 cm) pf1 05:35 Pain Scale: Adult pf1 MDM: 05:43 Patient medically screened. bubba 05:54 Differential diagnosis: Cervical Disc Herniation tendonitis, cervical strain, bubba Degenerative Disc Disease Neck Contusion Spondylosis torticollis. Data reviewed: vital signs, nurses notes, lab test result(s), EKG, radiologic studies, CT scan. Consideration of Admission/Observation Escalation of care including admission/observation considered. I considered the following discharge prescriptions or medication management in the emergency department Medications were administered in the Emergency Department. See MAR. Independent interpretation of the following test(s) in the Emergency Department EKG: See my EKG interpretation above. Test considered but Not performed: Ultrasound no cervical mri. Historians other than the Patient: Spouse/Significant Other: well informed. Care significantly affected by the following chronic conditions: Cancer, cll, on chemo. Counseling: I had a detailed discussion with the patient and/or guardian regarding the historical points, exam findings, and any diagnostic results supporting the discharge/admit diagnosis, lab results, radiology results, the need for outpatient follow up, for definitive care, a family practitioner, a neurologist. 08/12 05:51 Order name: CBC with Diff bubba 08/12 05:51 Order name: Comprehensive Metabolic Panel; Complete Time: 06:38 bubba 08/12 05:51 Order name: Troponin High Sensitivity; Complete Time: 06:38 bubba 08/12 06:23 Order name: CBC Smear Scan EDMS 08/12 05:51 Order name: CT C Spine; Complete Time: 07:34 bubba 08/12 05:51 Order name: EKG; Complete Time: 05:51 bubba 08/12 05:51 Order name: EKG - Nurse/Tech; Complete Time: 06:36 bubba 08/12 06:02 Order name: Sling; Complete Time: 07:03 bubba EC:19 Rate is 94 beats/min. Rhythm is regular. QRS [place] is Normal. [place] interval is normal. QRS bubba interval is normal. QT interval is normal. No Q waves. T waves are Normal. No ST changes noted. Clinical impression: NSR w/ Non-specific ST/T Changes and No evidence of ischemia. Interpreted by me. Reviewed by me. Administered Medications: 06:30 Drug: Diazepam PO 10 mg PO once Route: PO; pf1 07:30 Follow up: Response: No adverse reaction iw 06:36 Drug: Ondansetron IVP 4 mg IVP once; over 2 minutes Route: IVP; Site: left forearm; pf1 07:30 Follow up: Response: No adverse reaction iw 06:37 Drug: NS 0.9% IV 1000 ml IV at 1 bolus Per protocol; 1000 mL bolus Route: IV; Rate: 1 pf1 bolus; Site: left forearm; 07:37 Follow up: IV Status: Completed infusion iw 06:37 Drug: Decadron - Dexamethasone IVP 10 mg IVP once Route: IVP; Site: left forearm; pf1 07:00 Follow up: Response: No adverse reaction iw 06:37 Drug: Ketorolac IVP 30 mg IVP once Route: IVP; Site: left forearm; pf1 07:30 Follow up: Response: No adverse reaction iw 06:37 Drug: morphine IVP or IV 4 mg IVP once over 4 mins Route: IVP; Infused Over: 4 mins; pf1 Site: left forearm; 07:30 Follow up: Response: No adverse reaction iw 07:07 Drug: morphine IVP or IV 4 mg IVP once over 4 mins Route: IVP; Infused Over: 4 mins; km8 Site: left antecubital; 07:30 Follow up: Response: No adverse reaction; Pain is decreased iw Disposition Summary: 08/12/23 07:35 Discharge Ordered Notes: Location: Home sp3 Problem: new sp3 Symptoms: have improved sp3 Condition: Stable sp3 Diagnosis - Cervical disc disorder with radiculopathy sp3 - Radiculopathy, cervical region sp3 - Pain in right arm sp3 Followup: bubba - With: Private Physician - When: 2 - 3 days - Reason: Recheck today's complaints, Continuance of care, Re-evaluation by your physician Followup: bubba - With: Cabrera Tom MD - When: 2 - 3 days - Reason: Recheck today's complaints, Re-evaluation by your physician Discharge Instructions: - Discharge Summary Sheet bubba - Cervical Radiculopathy bubba - Musculoskeletal Pain bubba - Pinched Nerve bubba - Cervical Radiculopathy, [id number] bubba - Radicular Pain bubba Forms: - Medication Reconciliation Form sp3 - Thank You Letter sp3 - Antibiotic Education sp3 - Prescription Opioid Use sp3 - Patient Portal Instructions sp3 - Leadership Thank You Letter sp3 Prescriptions: - acetaminophen-codeine 300-30 mg Oral tablet - take 2 tablet ORAL route every 6 hours as needed for pain; 20 tablet; Refills: bubba 0, Product Selection Permitted - dexamethasone 2 mg Oral tablet - take 1 tablet ORAL route every 12 hours; 10 tablet; Refills: 0, Product bubba Selection Permitted - Valium 5 mg Oral Tablet - take 1 tablet ORAL route every 8 hours As needed; 20 tablet; Refills: 0, bubba Product Selection Permitted - Diclofenac Sodium 75 mg Oral tablet, delayed release (enteric coated) - take 1 tablet ORAL route 2 times per day; 20 tablet; Refills: 0, Product bubba Selection Permitted - ondansetron 8 mg Oral Tablet,disintegrating - take 1 tablet ORAL route every 12 hours; 10 tablet; Refills: 0, Product sp3 Selection Permitted Signatures: Dispatcher [employer] Giovanny Vega MD MD cha Patel, Setul, MD MD sp3 Jeaneth Santos RN RN pf1 Hallie Rogel RN RN km8 Geeta Zuniga RN iw
--- NOTE | 2023-08-12 07:35 | ER ---
Nurse's Notes [facility] Name: Wiley Anne Age: 62 yrs Sex: Male : 1960 Arrival Date: 08/12/2023 Time: 05:23 Bed 7 Private MD: Diagnosis: Cervical disc disorder with radiculopathy;Radiculopathy, cervical region;Pain in right arm Presentation: 08/12 05:35 Chief complaint: Patient states: right arm pain and right shoulder pain of 10 with pf1 right neck stiffness,onset Tuesday. Patient stated thinks he slept wrong. Patient stated took Tylenol 1000mg and Robaxin 500mg at 0400 this AM. Patient stated followed up with Dr. Juarez on for the same symptoms and was told to follow up to have physical therapy. Patient denies any injury. Coronavirus screen: Vaccine status: Patient reports being unvaccinated. Client denies travel out of the [place] in the last 14 days. At this time, the client does not indicate any symptoms associated with coronavirus-19. Ebola Screen: Patient negative for fever greater than or equal to 101.5 degrees Fahrenheit, and additional compatible Ebola Virus Disease symptoms. Initial Sepsis Screen: Does the patient meet any 2 criteria? HR > 90 bpm. No. Patient's initial sepsis screen is negative. Does the patient have a suspected source of infection? No. Patient's initial sepsis screen is negative. Risk Assessment: Do you want to hurt yourself or someone else? Patient reports no desire to harm self or others. 05:35 Method Of Arrival: Ambulatory pf1 05:35 Acuity: JASMIN 3 pf1 Triage Assessment: 05:52 General: Appears in no apparent distress. uncomfortable, well groomed, well developed, pf1 Behavior is cooperative, appropriate for age. Pain: Complains of pain in right antecubital area and right shoulder Pain currently is 10 out of 10 on a pain scale. EENT: No deficits noted. No signs and/or symptoms were reported regarding the EENT system. Neuro: No deficits noted. Level of Consciousness is awake, alert, obeys commands, Oriented to person, place, time, situation. Cardiovascular: No deficits noted. Capillary refill < 3 seconds Patient's skin is warm and dry. Respiratory: No deficits noted. Airway is patent Respiratory effort is even, unlabored, Respiratory pattern is regular, symmetrical. GI: No deficits noted. No signs and/or symptoms were reported involving the gastrointestinal system. : No deficits noted. No signs and/or symptoms were reported regarding the genitourinary system. Derm: No deficits noted. No signs and/or symptoms reported regarding the dermatologic system. Musculoskeletal: Reports pain in right arm, right elbow, right antecubital area, right shoulder. Historical: - Allergies: 05:43 No Known Allergies; pf1 - PMHx: 05:43 CLL; Oral chemotherapy; pf1 - PSHx: 05:43 abcess D/C; Cholecystectomy; pf1 - Immunization history:: Adult Immunizations up to date, Client reports having NOT received the Covid vaccine. Last tetanus immunization: < 5 years ago Flu vaccine is not up to date. - Social history:: Smoking status: Patient denies any tobacco usage or history of. Patient uses street drugs, marijuana, Patient/guardian denies using alcohol. Screenin:54 [facility] ED Fall Risk Assessment (Adult) History of falling in the last 3 months, pf1 including since admission No falls in past 3 months (0 pts) Confusion or Disorientation No (0 pts) Intoxicated or Sedated No (0 pts) Impaired Gait No (0 pts) Mobility Assist Device Used No (0 pt) Altered Elimination No (0 pt) Score/Fall Risk Level 0 - 2 = Low Risk Oriented to surroundings, Maintained a safe environment, Educated pt \T\ family on fall prevention, incl call for assistance when getting out of bed, Assessed \T\ reinforced patient's understanding of fall precautions, Provided non-skid footwear, Hourly rounding (assess needs \T\ fall precautionary measures) done, Used ambulatory aids as needed (educated on \T\ assisted with), Used gait belt as appropriate. Abuse screen: Denies threats or abuse. Nutritional screening: No deficits noted. Tuberculosis screening: No symptoms or risk factors identified. Assessment: 05:54 Reassessment: see triage assessment. pf1 06:52 Reassessment: pt currently in CT. km8 07:09 Reassessment: Patient appears in no apparent distress at this time. Patient and/or iw family updated on plan of care and expected duration. Pain level reassessed. Patient is alert, oriented x 3, equal unlabored respirations, skin warm/dry/pink. 07:53 Reassessment: Patient states feeling better. Patient states symptoms have improved. iw Vital Signs: 05:35 BP 148 / 90; Pulse 105; Resp 18; Temp 97.9; Pulse Ox 94% ; Weight 58.97 kg; Height 5 pf1 ft. 2 in. ; Pain 10/10; 07:07 BP 123 / 79; Pulse 97; Resp 16; Pulse Ox 93% on R/A; km8 07:53 BP 128 / 78; Pulse 91; Resp 16; Pulse Ox 99% on R/A; iw 05:35 Body Mass Index 23.78 (58.97 kg, 157.48 cm) pf1 05:35 Pain Scale: Adult pf1 ED Course: 05:26 Patient arrived in ED. [id number] 05:43 Triage completed. pf1 05:43 Giovanny Miller MD is Attending Physician. bubba 05:54 Patient has correct armband on for positive identification. pf1 05:55 No provider procedures requiring assistance completed. Inserted saline lock: 22 gauge pf1 in left forearm, using aseptic technique. Blood collected. 06:00 Comprehensive Metabolic Panel Sent. pf1 06:00 CBC with Diff Sent. pf1 06:00 Troponin High Sensitivity Sent. pf1 07:06 CT C Spine In Process Unspecified. EDMS 07:07 Arm band placed on right wrist. km8 07:09 Geeta Zuniga, RN is Primary Nurse. iw 07:34 Cabrera Tom MD is Referral Physician. sp3 07:53 IV discontinued, intact, bleeding controlled, No redness/swelling at site. Pressure iw dressing applied. Administered Medications: 06:30 Drug: Diazepam PO 10 mg PO once Route: PO; pf1 07:30 Follow up: Response: No adverse reaction iw 06:36 Drug: Ondansetron IVP 4 mg IVP once; over 2 minutes Route: IVP; Site: left forearm; pf1 07:30 Follow up: Response: No adverse reaction iw 06:37 Drug: NS 0.9% IV 1000 ml IV at 1 bolus Per protocol; 1000 mL bolus Route: IV; Rate: 1 pf1 bolus; Site: left forearm; 07:37 Follow up: IV Status: Completed infusion iw 06:37 Drug: Decadron - Dexamethasone IVP 10 mg IVP once Route: IVP; Site: left forearm; pf1 07:00 Follow up: Response: No adverse reaction iw 06:37 Drug: Ketorolac IVP 30 mg IVP once Route: IVP; Site: left forearm; pf1 07:30 Follow up: Response: No adverse reaction iw 06:37 Drug: morphine IVP or IV 4 mg IVP once over 4 mins Route: IVP; Infused Over: 4 mins; pf1 Site: left forearm; 07:30 Follow up: Response: No adverse reaction iw 07:07 Drug: morphine IVP or IV 4 mg IVP once over 4 mins Route: IVP; Infused Over: 4 mins; km8 Site: left antecubital; 07:30 Follow up: Response: No adverse reaction; Pain is decreased iw Medication: 07:08 VIS not applicable for this client. km8 Outcome: 07:35 Discharge ordered by . tasha 07:53 Discharged to home ambulatory, iw 07:53 Condition: good 07:53 Discharge instructions given to patient, family, Instructed on discharge instructions, follow up and referral plans. medication usage, Demonstrated understanding of instructions, follow-up care, medications, Prescriptions given X 5 07:54 Patient left the ED. iw Signatures: Dispatcher [employer] EDMS Giovanny Miller MD MD cha Williams, Irene, RN RN iw Mino Grande MD MD spFrancisca [id number] Jeaneth Santos RN RN pf1 Hallie Rogel RN RN km8 Corrections: (The following items were deleted from the chart) 05:47 05:35 Chief complaint: Patient states: right arm pain and right shoulder pain of pf1 10,onset Tuesday. Patient stated thinks he slept wrong. Patient stated took Tylenol 1000mg and Robaxin 500mg at 0400 this AM. Patient stated followed up with Dr. Juarez on for the same symptoms and was told to follow up to have physical therapy. Patient denies any injury. pf1
[2023-08-12 08:14] LABS: Blood Morphology Comment NOT SEEN (NOT SEEN); White Blood Cell Scan OK (OK)
[2023-08-12 08:15] LABS: Platelet Estimate DECR
[2023-08-12 08:18] VITALS: TEMP 97.9
[2023-08-12 08:28] VITALS: BP 128/78; O2SAT 99
--- NOTE | 2023-08-16 13:59 | EKG ---
Test Date: 2023-08-12 Test Time: 06:16:31 Psychotherapist Social Worker: MEASUREMENT RESULTS: Intervals: Rate: 94 ID: [id number] QRSD: 74 QT: 328 QTc: 410 [place]: P: 75 ID: [id number] QRS: 58 T: 72 INTERPRETIVE STATEMENTS: Normal sinus rhythm Normal ECG Compared to ECG 07/27/2023 16:46:13 No significant changes Electronically Signed On 08-16-23 13:44:24 ASSISTANT PROFESSOR SURGICAL TECHNOLOGY by Andrew Trevino
== END 2023-08-12 07:54 | disposition home or self-care (01) ==
LOC: ER 05:23
DX: M54.12 Radiculopathy, cervical region (principal); Z28.310 Unvaccinated for COVID-19
CPT/HCPCS: 93005; 85025; 36415; 84484; 80053; 72125; 99284; J1100; J2405; J7030

== ENCOUNTER 2024-07-29 09:42 | Emergency (ER) | payer OTHER ==
[2024-07-29 11:16] LABS: Absolute Lymphocytes (CBC) 0.8 K/uL (0.7-4.9); Absolute Monocytes 0.4 K/uL (0.1-1.3); Basophils % 0.4 % (0-1.3); Eosinophils % 0.7 % (0-4.4); Hematocrit 43.8 % (39.6-49.0); Hemoglobin 15.1 g/dL (13.6-17.9); Lymphocytes % 18.7 % (15.3-44.8); MCH 31.4 pg (27.0-35.0); MCHC 34.5 g/dL (32.0-36.0); MPV 10.1 fL (7.6-11.3); Monocytes % 9.2 % (3.3-12.3); Nucleated Red Blood Cells % 0.2 % (0-0); Platelets 84 thou/uL (152-406); RBC Red Blood Cell Count 4.81 M/uL (4.33-5.43)
[2024-07-29 11:18] LABS: Specific Gravity 1.007 (1.005-1.030); Sqamous Epithelial None Seen /HPF (None Seen); Urine Bacteria <20 /HPF (<20); Urine Bilirubin NEGATIVE (Negative); Urine Blood Negative (Negative); Urine Clarity Clear (Clear); Urine Color Colorless (Yellow); Urine Culture Reflex Order NOT NEEDED; Urine Glucose NEGATIVE (Negative); Urine Ketones NEGATIVE (Negative); Urine Microscopic Reflex YN ORDER UMIC; Urine Nitrite NEGATIVE (Negative); Urine Protein NEGATIVE (Negative); Urine RBC <5 /HPF (None Seen); Urine Urobilinogen Normal (Normal); Urine WBC <5 /HPF (<5); Urine pH 5.5 (5.0-7.0)
[2024-07-29 11:25] LABS: Albumin 3.4 g/dL (3.4-5.0); Albumin/Globulin Ratio 1.1 (1.1-1.8); Anion Gap 8.8 mEq/L (5.0-15.0); Bilirubin Total 0.5 mg/dL (0.2-1.0); Globulin 3.1 g/dL (2.3-3.5); Potassium 3.8 mEq/L (3.5-5.1); Protein, Total 6.5 g/dL (6.4-8.2)
[2024-07-29] MEDS ORDERED: KETOROLAC 30 MG/ML INJ ONE (11:46)
[2024-07-29 11:58] LABS: Platelet Estimate DECR; White Blood Cell Scan OK (OK)
[2024-07-29 11:59] LABS: Blood Morphology Comment NOT SEEN (NOT SEEN)
--- NOTE | 2024-07-29 12:07 | RAD REPORT ---
EXAMINATION: CT ABDOMEN AND PELVIS WITH CONTRAST CLINICAL INDICATION: ABD PAIN TECHNIQUE: CT abdomen and pelvis was performed, after the administration of IV contrast, as per [facility]. Axial, sagittal and coronal reconstructions were obtained. One or more of the following dose reduction techniques were used: Automated exposure control, adjustment of the mA and k V according to patient size, and iterative reconstruction. Unless otherwise specified, incidental findings do not require dedicated imaging follow-up. COMPARISON: 07/27/2023 FINDINGS: LOWER CHEST: The visualized lung bases are clear. LIVER: Mild fatty liver is present. No focal lesion or biliary dilatation is seen. Cholecystectomy clips. SPLEEN: Mildly enlarged spleen measuring 15 cm. PANCREAS: No mass, ductal dilation, or elaina-pancreatic fluid. ADRENALS: Normal; no mass. KIDNEYS: Normal size and contour. No hydronephrosis. GASTROINTESTINAL TRACT: No evidence of free air, significant intra-abdominal free fluid, bowel obstru ction or abscess. There is mild diverticulosis coli of the sigmoid colon without diverticulitis. APPENDIX: Normal appendix. LYMPH NODES: No lymphadenopathy. MUSCULOSKELETAL: No acute or suspicious osseous abnormality. ADDITIONAL FINDINGS: None. IMPRESSION: No acute or concerning abnormalities seen in the abdomen or pelvis.
--- NOTE | 2024-07-29 12:15 | EDPHYS ---
Physician Documentation [facility] Name: Wiley Anne Age: 63 yrs Sex: Male : 1960 Arrival Date: 07/29/2024 Time: 09:42 Bed 5 Private MD: ED Physician Hector Perez HPI: 07/29 10:22 This 63 yrs old Male presents to ER via Ambulatory with complaints of Abdominal Pain, [facility] Flank Pain. 10:22 63-year-old male with a past medical history of CLL and cholecystectomy presents to the [facility] ER for lower abdominal pain for the past week. He denies any fever but does report nausea. Reports that Tylenol completely relieves his pain. He reports that he cannot lay on his sides due to the pain. Denies chest pain, difficulty breathing, vomiting, or any other symptoms.. Historical: - Allergies: 10:22 No Known Allergies; cm10 - PMHx: 10:22 CLL; Oral chemotherapy; cm10 - PSHx: 10:22 abcess D/C; Cholecystectomy; cm10 - Immunization history:: Adult Immunizations up to date. - Infectious Disease History:: Denies. - Social history:: Smoking status: Patient denies any tobacco usage or history of. ROS: 10:22 Constitutional: Per HPI [facility] Exam: 10:22 Constitutional: This is a well developed, well nourished patient who is awake, alert, [facility] and in no acute distress. Head/Face: Normocephalic, atraumatic. ENT: Nares patent. No nasal discharge, no septal abnormalities noted. Tympanic membranes are normal and external auditory canals are clear. Oropharynx with no redness, swelling, or masses, exudates, or evidence of obstruction, uvula midline. Mucous membranes moist. Cardiovascular: Regular rate and rhythm with a normal S1 and S2. No gallops, murmurs, or rubs. Normal PMI, no JVD. No pulse deficits. Respiratory: Lungs have equal breath sounds bilaterally, clear to auscultation and percussion. No rales, rhonchi or wheezes noted. No increased work of breathing, no retractions or nasal flaring. Back: No spinal tenderness. No costovertebral tenderness. Full range of motion. Skin: Warm, dry with normal turgor. Normal color with no rashes, no lesions, and no evidence of cellulitis. MS/ Extremity: Pulses equal, no cyanosis. Neurovascular intact. Full, normal range of motion. Neuro: Awake and alert, GCS 15, oriented to person, place, time, and situation. Motor strength 5/5 in all extremities. Sensory grossly intact. Normal gait. 10:22 Abdomen/GI: Inspection: abdomen appears normal, Bowel sounds: normal, Palpation: soft, mild abdominal tenderness, in the right lower quadrant and left lower quadrant, Vital Signs: 10:21 BP 158 / 91; Pulse 70; Resp 16; Temp 98.2(O); Pulse Ox 97% on R/A; Weight 59.87 kg (R); cm10 Height 5 ft. 2 in. (R); Pain 2/10; 12:23 BP 165 / 81; Pulse 64; Resp 16; Temp 98.4; Pulse Ox 97% ; me1 10:21 Body Mass Index 24.14 (59.87 kg, 157.48 cm) cm10 10:21 Pain Scale: Adult cm10 MDM: 09:56 Medical Screening Exam initiated [facility] 12:15 Differential diagnosis: appendicitis, Irritable bowel syndrome, non-specific abd pain, [facility] pancreatitis, Peptic Ulcer Disease, urinary tract infection. Data reviewed: vital signs, nurses notes, lab test result(s), radiologic studies, CT scan. I considered the following discharge prescriptions or medication management in the emergency department Medications were administered in the Emergency Department. See MAR. Historians other than the Patient: Spouse/Significant Other: . Care significantly affected by the following chronic conditions: Cancer. Counseling: I had a detailed discussion with the patient and/or guardian regarding the historical points, exam findings, and any diagnostic results supporting the discharge/admit diagnosis, the need for outpatient follow up, Dr. Juarez, to return to the emergency department if symptoms worsen or persist or if there are any questions or concerns that arise at home. Response to treatment: the patient's symptoms have mildly improved after treatment. 07/29 10:32 Order name: CBC with Diff; Complete Time: 12:00 [facility] 07/29 10:32 Order name: CMP; Complete Time: : [facility] 07/29 10:32 Order name: Lipase; Complete Time: : [facility] 07/29 10:32 Order name: Urinalysis w/ reflexes; Complete Time: 11:26 [facility] 07/29 11:21 Order name: CBC Smear Scan; Complete Time: 12:00 [facility] 07/29 11:30 Order name: CT Abd/Pelvis - IV Contrast Only; Complete Time: 12:13 [facility] 07/29 10:32 Order name: IV Saline Lock; Complete Time: 11:03 [facility] 07/29 10:32 Order name: Labs collected and sent; Complete Time: 11:03 [facility] Administered Medications: 11:48 Drug: Ketorolac IVP 15 mg IVP once Route: IVP; Site: right forearm; aa5 12:23 Follow up: Response: No adverse reaction; Pain is decreased me1 Disposition Summary: 07/29/24 12:15 Discharge Ordered Notes: Location: Home [facility] Problem: new [facility] Symptoms: are unchanged [facility] Condition: Stable [facility] Diagnosis - Lower abdominal pain, unspecified [facility] Followup: [facility] - With: Jordan Juarez MD - When: 2 - 3 days - Reason: Recheck today's complaints Discharge Instructions: - Discharge Summary Sheet [facility] - Abdominal Pain, Adult [facility] Forms: - Medication Reconciliation Form [facility] - Antibiotic Education [facility] - Patient Portal Instructions [facility] - Leadership Thank You Letter [facility] Prescriptions: - ondansetron 4 mg Oral Tablet,disintegrating - take 1 tablet ORAL route every 4-6 hours As needed; 30 tablet; Refills: 0, jh7 Product Selection Permitted Signatures: Dispatcher [employer] Flores Emanuel RN RN aa5 Francisca Burr FNP ASSOCIATE PROFESSOR OF ANTHROPOLOGY 7 Iveth John RN RN cm10 Sheryl Álvarez RN me1 Corrections: (The following items were deleted from the chart) 12:29 10:22 This 63 yrs old Male presents to ER via Ambulatory with complaints of Abdominal 7 Pain, Flank Pain. [facility]
--- NOTE | 2024-07-29 12:15 | ER ---
Nurse's Notes [facility] Name: Wiley Anne Age: 63 yrs Sex: Male : 1960 Arrival Date: 07/29/2024 Time: 09:42 Bed 5 Private MD: Diagnosis: Lower abdominal pain, unspecified Presentation: 07/29 10:21 Chief complaint: Patient states: right sided abdominal pain onset 1 week ago. Pt states cm10 that the pain is worse when laying on right side. Pt reports nausea. Coronavirus screen: Client denies travel out of the [place] in the last 14 days. Ebola Screen: Patient denies travel to an Ebola-affected area in the 21 days before illness onset. No symptoms or risks identified at this time. Initial Sepsis Screen: Does the patient meet any 2 criteria? No. Patient's initial sepsis screen is negative. Does the patient have a suspected source of infection? No. Patient's initial sepsis screen is negative. Risk Assessment: Do you want to hurt yourself or someone else? Patient reports no desire to harm self or others. Onset of symptoms was July 29, 2024. 10:21 Method Of Arrival: Ambulatory cm10 10:21 Acuity: JASMIN 3 cm10 Triage Assessment: 10:23 General: Appears in no apparent distress. comfortable, Behavior is calm, cooperative. cm10 Pain: Complains of pain in right upper quadrant and right lower quadrant Pain does not radiate. Pain currently is 2 out of 10 on a pain scale. Neuro: No deficits noted. Level of Consciousness is awake, alert, obeys commands, Oriented to person, place, time, situation, Appropriate for age. Respiratory: No deficits noted. Airway is patent Respiratory effort is even, unlabored, Respiratory pattern is regular, symmetrical. Historical: - Allergies: 10:22 No Known Allergies; cm10 - PMHx: 10:22 CLL; Oral chemotherapy; cm10 - PSHx: 10:22 abcess D/C; Cholecystectomy; cm10 - Immunization history:: Adult Immunizations up to date. - Infectious Disease History:: Denies. - Social history:: Smoking status: Patient denies any tobacco usage or history of. Screenin:25 [facility] ED Fall Risk Assessment (Adult) History of falling in the last 3 months, aa5 including since admission No falls in past 3 months (0 pts) Confusion or Disorientation No (0 pts) Intoxicated or Sedated No (0 pts) Impaired Gait No (0 pts) Mobility Assist Device Used No (0 pt) Altered Elimination No (0 pt) Score/Fall Risk Level 0 - 2 = Low Risk Oriented to surroundings, Maintained a safe environment, Educated pt \\T\\ family on fall prevention, incl call for assistance when getting out of bed. Abuse screen: Denies threats or abuse. Nutritional screening: No deficits noted. Tuberculosis screening: No symptoms or risk factors identified. Assessment: 10:25 General: Appears comfortable, Behavior is calm, cooperative. Pain: Complains of pain in aa5 right upper quadrant Pain currently is 2 out of 10 on a pain scale. Quality of pain is described as aching, sharp, Pain began Tuesday Is continuous, Aggravated by movement and "taking a deep breath". Neuro: Level of Consciousness is awake, alert, obeys commands, Oriented to person, place, time, situation. Cardiovascular: Patient's skin is warm and dry. Respiratory: Airway is patent Respiratory effort is even, unlabored, Respiratory pattern is regular, symmetrical. GI: Abdomen is round non-distended, Bowel sounds present X 4 quads. Abd is soft and non tender X 4 quads. Reports nausea, Patient currently denies diarrhea. : No signs and/or symptoms were reported regarding the genitourinary system. EENT: No signs and/or symptoms were reported regarding the EENT system. Derm: Skin is pink, warm \\T\\ dry. Musculoskeletal: Range of motion: intact in all extremities. 11:48 Reassessment: Patient is alert, oriented x 3, equal unlabored respirations, skin aa5 warm/dry/pink. 11:49 Reassessment: Pt to CT via wheelchair . aa5 Vital Signs: 10:21 BP 158 / 91; Pulse 70; Resp 16; Temp 98.2(O); Pulse Ox 97% on R/A; Weight 59.87 kg (R); cm10 Height 5 ft. 2 in. (R); Pain 2/10; 12:23 BP 165 / 81; Pulse 64; Resp 16; Temp 98.4; Pulse Ox 97% ; me1 10:21 Body Mass Index 24.14 (59.87 kg, 157.48 cm) cm10 10:21 Pain Scale: Adult cm10 ED Course: :46 Patient arrived in ED. ra3 09:56 [facility] jh7 09:56 Hector Perez MD is Attending Physician. jh7 10:22 Triage completed. cm10 10:23 Arm band placed on right wrist. Patient placed in an exam room, on a stretcher. cm10 10:25 Patient has correct armband on for positive identification. Placed in gown. Bed in low aa5 position. Call light in reach. Side rails up X2. Adult w/ patient. Pulse ox on. NIBP on. 10:27 Flores Caban, RN is Primary Nurse. aa5 11:03 Inserted saline lock: 20 gauge in right forearm, using aseptic technique. am7 12:01 CT Abd/Pelvis - IV Contrast Only In Process Unspecified. EDMS 12:14 Jordan Juarez MD is Referral Physician. 7 12:24 Provided Education on: POC. Verbalized understanding.. me1 12:24 No provider procedures requiring assistance completed. me1 12:33 IV discontinued, intact, bleeding controlled, No redness/swelling at site. Pressure me1 dressing applied. Administered Medications: 11:48 Drug: Ketorolac IVP 15 mg IVP once Route: IVP; Site: right forearm; aa5 12:23 Follow up: Response: No adverse reaction; Pain is decreased me1 Medication: 12:24 VIS not applicable for this client. me1 Outcome: 12:15 Discharge ordered by . 7 12:33 Discharged to home ambulatory, with significant other, me1 12:33 Condition: stable 12:33 Discharge instructions given to patient, significant other, Instructed on discharge instructions, follow up and referral plans. medication usage, Demonstrated understanding of instructions, follow-up care, medications, Prescriptions given X 1, 12:33 Patient left the ED. me1 Signatures: Dispatcher [employer] EDCO Flores Caban, [employer] 5 Francisca Burr FNP CONSTRUCTION ADMINISTRATOR 7 Iveth John RN RN 10 Sheryl Álvarez RN RN me1 Ragini Ordoñez ra3 Cinda Kulkarni am7 Corrections: (The following items were deleted from the chart) 12:07 10:35 Patient has correct armband on for positive identification. Placed in gown. Bed aa5 in low position. Call light in reach. Side rails up X2. Adult w/ patient. 12:07 10:35 Pulse ox on. NIBP on. aa5 12: 12:23 Pulse 64bpm; Resp 16bpm; Pulse Ox 97%; Temp 98.4F; me1 me1
[2024-07-29 12:42] VITALS: O2SAT 97
[2024-07-29 12:48] VITALS: BP 165/81; TEMP 98.4
== END 2024-07-29 12:33 | disposition home or self-care (01) ==
LOC: ER 09:42
DX: R10.32 Left lower quadrant pain (principal); R10.31 Right lower quadrant pain; Z85.6 Personal history of leukemia
CPT/HCPCS: 85025; 81001; 36415; 83690; 80053; 74177; 96374; 99284; Q9967

== ENCOUNTER 2024-10-03 19:40 | Emergency (ER) | payer OTHER, SELFPAY ==
[2024-10-03] MEDS ORDERED: MORPHINE 4 MG/ML SYR ONE (20:26)
[2024-10-03] MEDS ORDERED: KETOROLAC 30 MG/ML INJ ONE (20:26)
[2024-10-03] MEDS ORDERED: ONDANSETRON 4 MG/2 ML VIAL ONE (20:26)
[2024-10-03] MEDS ORDERED: NA CHLORIDE 0.9% 1,000 ML ONE (20:27)
[2024-10-03 20:47] LABS: Absolute Eosinophils 0.1 K/uL (0-0.5); Absolute Lymphocytes (CBC) 1.1 K/uL (0.7-4.9); Absolute Monocytes 0.7 K/uL (0.1-1.3); Basophils % 0.7 % (0-1.3); Eosinophils % 1.2 % (0-4.4); Hematocrit 47.1 % (39.6-49.0); Hemoglobin 16.7 g/dL (13.6-17.9); Lymphocytes % 22.8 % (15.3-44.8); MCH 30.6 pg (27.0-35.0); MCHC 35.4 g/dL (32.0-36.0); MCV 86.4 fL (80-100); MPV 8.7 fL (7.6-11.3); Monocytes % 14.3 % (3.3-12.3); Nucleated Red Blood Cells % 0.2 % (0-0); Platelets 90 thou/uL (152-406); RBC Red Blood Cell Count 5.46 M/uL (4.33-5.43); Red Cell Distribution Width 12.9 % (12.1-15.2)
[2024-10-03 21:04] LABS: Albumin 3.7 g/dL (3.4-5.0); Albumin/Globulin Ratio 1.1 (1.1-1.8); Anion Gap 7.8 mEq/L (5.0-15.0); Bilirubin Total 0.4 mg/dL (0.2-1.0); Globulin 3.3 g/dL (2.3-3.5); Potassium 3.8 mEq/L (3.5-5.1)
--- NOTE | 2024-10-03 21:23 | RAD REPORT ---
EXAM: CT brain without contrast HISTORY: HEADACHE COMPARISON: None TECHNIQUE: Multiple contiguous axial images were obtained and a CT of the brain without contrast. Sag ittal and coronal reformats were performed. FINDINGS: No evidence of hydrocephalus, intracranial hemorrhage, or extra-axial fluid collection. The brain is normal in morphology. The calvarium is intact. The visualized paranasal sinuses show scattered up to moderate mucosal thick ening most pronounced along the right maxillary sinus. Mastoid air cells are essentially clear. IMPRESSION: No evidence of acute intracranial abnormality. EXAM: CT of the cervical spine without contrast HISTORY: HEADACHE COMPARISON: None TECHNIQUE: Multiple contiguous axial images were obtained in a CT of the cervical spine without contr ast. Sagittal and coronal reformats were performed. FINDINGS: The vertebral bodies demonstrate normal height. Straightening of normal lordosis with minim al degrees of spondylolisthesis due to endplate and facet remodeling. Multilevel uncovertebral joint spurring also noted, most pronounced at C4-5, C5-6, and C6-7. Findings contribute to bilateral moderate neural foraminal narrowing at C4-5 and C5-6.. No evidence of acute fracture or subluxation. No prevertebral soft tissue swelling is seen. The posterior facets are well aligned. Normal alignment of the skull base with the cervical spine is seen. The lung apices are unremarkable. IMPRESSION: No evidence of acute osseous abnormality of the cervical spine. Multilevel degenerative changes as above.
[2024-10-03 21:43] LABS: Blood Morphology Comment NOTED (NOT SEEN); Platelet Estimate DECR; Polychromasia SLIGHT; White Blood Cell Scan OK (OK)
[2024-10-03] MEDS ORDERED: METOCLOPRAMIDE 10 MG/2mL INJ ONE (23:09)
[2024-10-03] MEDS ORDERED: DIPHENHYDRAMINE 50 MG/ML VIAL ONE (23:09)
--- NOTE | 2024-10-03 23:59 | ER ---
Nurse's Notes [facility] Name: Wiley Anne Age: 63 yrs Sex: Male : 1960 Arrival Date: 10/03/2024 Time: 19:40 Bed 5 Private MD: Diagnosis: Headache;Cellulitis of head [any part, except face] Presentation: 10/03 20:01 Chief complaint: Patient states: i have head ache for 5-7 days now. I also have some bm8 sores on top of me head. Coronavirus screen: Vaccine status: Patient reports being unvaccinated. Ebola Screen: Patient negative for fever greater than or equal to 101.5 degrees Fahrenheit, and additional compatible Ebola Virus Disease symptoms Patient denies exposure to infectious person. Patient denies travel to an Ebola-affected area in the 21 days before illness onset. No symptoms or risks identified at this time. Initial Sepsis Screen: Does the patient meet any 2 criteria? No. Patient's initial sepsis screen is negative. Does the patient have a suspected source of infection? No. Patient's initial sepsis screen is negative. Risk Assessment: Do you want to hurt yourself or someone else? Patient reports no desire to harm self or others. Onset of symptoms was September 26, 2023. 20:01 Method Of Arrival: Ambulatory bm8 20:01 Acuity: JASMIN 2 bm8 Triage Assessment: 20:03 Headache History: The patient has had previous headaches and this one is similar to bm8 previous episodes. General: Appears in no apparent distress. comfortable, Behavior is calm, cooperative, appropriate for age. Pain: Complains of pain in right frontal area, right side of the back of head, right occipital area and right base of the skull Pain currently is 8 out of 10 on a pain scale. Quality of pain is described as aching, throbbing, Pain began 1 week Also complains of inability to work, sleeplessness, inability to concentrate, blurry vision. EENT: No deficits noted. No signs and/or symptoms were reported regarding the EENT system. Neuro: Level of Consciousness is awake, alert, obeys commands, Oriented to person, place, time, situation, Appropriate for age. Cardiovascular: No deficits noted. Capillary refill < 3 seconds fingers Patient's skin is warm and dry. Respiratory: Airway is patent Respiratory effort is even, unlabored, Respiratory pattern is regular, symmetrical. GI: No signs and/or symptoms were reported involving the gastrointestinal system. : No signs and/or symptoms were reported regarding the genitourinary system. Derm: No signs and/or symptoms reported regarding the dermatologic system. Musculoskeletal: No signs and/or symptoms reported regarding the musculoskeletal system. Historical: - Allergies: 20:03 No Known Allergies; bm8 - Home Meds: 20:03 Imbruvica 420 mg oral tablet 1 tab daily [Active]; bm8 - PMHx: 20:03 CLL; Oral chemotherapy; bm8 - PSHx: 20:03 abcess D/C; Cholecystectomy; bm8 - Immunization history:: Adult Immunizations up to date. - Infectious Disease History:: Denies. - Social history:: Smoking status: Patient denies any tobacco usage or history of. Screenin:[address] [facility] ED Fall Risk Assessment (Adult) History of falling in the last 3 months, cp4 including since admission No falls in past 3 months (0 pts) Confusion or Disorientation No (0 pts) Intoxicated or Sedated No (0 pts) Impaired Gait No (0 pts) Mobility Assist Device Used No (0 pt) Altered Elimination No (0 pt) Score/Fall Risk Level 0 - 2 = Low Risk Oriented to surroundings, Maintained a safe environment, Assessed \T\ reinforced patient's understanding of fall precautions, Hourly rounding (assess needs \T\ fall precautionary measures) done. Abuse screen: Denies threats or abuse. Nutritional screening: No deficits noted. Tuberculosis screening: No symptoms or risk factors identified. Assessment: 20:33 General: Appears in no apparent distress. Behavior is calm, cooperative, appropriate cp4 for age. Pain: Complains of pain in face and right base of the skull and right occipital area and right side of the back of head and right frontal area Pain does not radiate. Pain currently is 8 out of 10 on a pain scale. Neuro: Level of Consciousness is awake, alert, obeys commands, Oriented to person, place, time, situation. Cardiovascular: Patient's skin is warm and dry. Respiratory: Airway is patent Respiratory effort is even, unlabored. GI: No signs and/or symptoms were reported involving the gastrointestinal system. : No signs and/or symptoms were reported regarding the genitourinary system. EENT: No signs and/or symptoms were reported regarding the EENT system. Derm: Reports sores on head. Musculoskeletal: No signs and/or symptoms reported regarding the musculoskeletal system. 21:26 Reassessment: Patient appears in no apparent distress at this time. Patient and/or cp4 family updated on plan of care and expected duration. Pain level reassessed. Patient is alert, oriented x 3, equal unlabored respirations, skin warm/dry/pink. 23:28 Reassessment: Patient appears in no apparent distress at this time. Patient and/or cp4 family updated on plan of care and expected duration. Pain level reassessed. Patient is alert, oriented x 3, equal unlabored respirations, skin warm/dry/pink. 10/04 00:05 Reassessment: Patient appears in no apparent distress at this time. Patient and/or bm8 family updated on plan of care and expected duration. Pain level reassessed. Patient is alert, oriented x 3, equal unlabored respirations, skin warm/dry/pink. Patient states feeling better. Patient states symptoms have improved. Pain: Pain currently is 3 out of 10 on a pain scale. Vital Signs: 10/03 20:01 BP 185 / 100; Pulse 72; Resp 18; Temp 98.7; Pulse Ox 100% ; Weight 61.23 kg; Height 5 bm8 ft. 2 in. ; Pain 8/10; 21:26 BP 147 / 81; Pulse 65; Resp 18; Pulse Ox 95% ; cp4 23:28 BP 160 / 93; Pulse 63; Resp 18; Pulse Ox 94% ; cp4 10/04 00:05 BP 174 / 90; Pulse 63; Resp 18; Temp 98.7; Pulse Ox 93% ; Pain 3/10; bm8 10/03 20:01 Body Mass Index 24.69 (61.23 kg, 157.48 cm) bm8 10/03 20:01 Pain Scale: Adult bm8 10/04 00:05 Pain Scale: Adult bm8 Normandy Coma Score: 00:05 Eye Response: spontaneous(4). Motor Response: obeys commands(6). Verbal Response: bm8 oriented(5). Total: 15. 01:31 Eye Response: spontaneous(4). Motor Response: obeys commands(6). Verbal Response: dr5 oriented(5). Total: 15. ED Course: 10/03 19:44 Patient arrived in ED. gm2 19:46 Duc Rubin, [facility]IL [facility]. dr5 19:46 Nick Nuñez MD is Attending Physician. dr5 20:03 Triage completed. bm8 20:03 Arm band placed on right wrist. bm8 20:31 CT Head C Spine In Process Unspecified. EDMS 20:32 Celine Nunn is Primary Nurse. cp4 20:33 Bed in low position. Call light in reach. Side rails up X 1. cp4 20:33 No provider procedures requiring assistance completed. cp4 20:43 CMP Sent. vk 20:43 CBC with Diff Sent. vk 20:43 Inserted saline lock: 22 gauge in left hand, using aseptic technique. Blood collected. vk Flushed with 10 mL NS. 10/04 00:05 Provided Education on: POST ER CARE. bm8 00:05 IV discontinued, intact, bleeding controlled, No redness/swelling at site. Pressure bm8 dressing applied. Administered Medications: 10/03 20:47 Drug: Ketorolac IVP 15 mg IVP once Route: IVP; Site: left hand; cp4 21:25 Follow up: Response: No adverse reaction; Pain is decreased cp4 20:47 Drug: morphine IVP or IV 4 mg IVP once over 4 mins Route: IVP; Infused Over: 4 mins; cp4 Site: left hand; 21:25 Follow up: Response: No adverse reaction cp4 20:47 Drug: Ondansetron IVP 4 mg IVP once; over 2 minutes Route: IVP; Site: left hand; cp4 21:25 Follow up: Response: No adverse reaction cp4 20:47 Drug: NS 0.9% IV 1000 ml IV at 1000 ml once; to be given as a bolus over 60 minutes cp4 Route: IV; Rate: 1000 ml; Site: left hand; 10/04 00:07 Follow up: Response: No adverse reaction; IV Status: Completed infusion; IV Intake: bm8 1000ml 10/03 23:12 Drug: metoCLOPramide IVP 10 mg IVP once; over 1 to 2 minutes Route: IVP; Site: left cp4 hand; 10/04 00:07 Follow up: Response: No adverse reaction bm8 10/03 23:12 Drug: diphenhydrAMINE IVP 25 mg IVP once Route: IVP; Site: left hand; cp4 10/04 00:06 Follow up: Response: No adverse reaction bm8 Medication: 10/03 20:33 VIS not applicable for this client. cp4 Intake: 10/04 00:07 IV: 1000ml; Total: 1000ml. bm8 Outcome: 10/03 23:59 Discharge ordered by . marylu 10/04 00:05 Discharged to home ambulatory, with family, bm8 Condition: stable Discharge instructions given to patient, family, Instructed on discharge instructions, follow up and referral plans. safety practices, Demonstrated understanding of instructions, follow-up care, medications, Prescriptions given X 2, 00:08 Patient left the ED. bm8 Signatures: Dispatcher [employer] EDMS Celine Nunn cp4 Cherri Price gm2 Sandra Clarke Brad, RN RN bm8 Duc Rubin, [employer]-C [employer]-Cdr5 Corrections: (The following items were deleted from the chart) 00:07 10/03 23:12 IV Status: Completed infusion cp4 bm8
--- NOTE | 2024-10-04 | EDPHYS ---
Physician Documentation [facility] Name: Wiley Anne Age: 63 yrs Sex: Male : 1960 Arrival Date: 10/03/2024 Time: 19:40 Bed 5 Private MD: ED Physician Nick Nuñez HPI: 10/04 01:31 This 63 yrs old Male presents to ER via Ambulatory with complaints of dr5 Headache, Pain. 01:31 The patient complains of pain to the top of head, forehead, right caodaism and left dr5 caodaism. The patient describes the headache as aching, constant. Onset: The symptoms/episode began/occurred 3 day(s) ago. Severity of symptoms: in the emergency department the pain has improved, markedly. Headache History: The patient has had previous headaches and this one is similar to previous episodes. Patient is a 63-year-old male with history of CLL coming in with headache and red tender spots on top of head. Patient reports he went to the doctor today and was prescribed anti-inflammatories. Patient denies fever, cough, congestion. Patient denies headache being worst headache of life.. Historical: - Allergies: 10/03 20:03 No Known Allergies; bm8 - Home Meds: 20:03 Imbruvica 420 mg oral tablet 1 tab daily [Active]; bm8 - PMHx: 20:03 CLL; Oral chemotherapy; bm8 - PSHx: 20:03 abcess D/C; Cholecystectomy; bm8 - Immunization history:: Adult Immunizations up to date. - Infectious Disease History:: Denies. - Social history:: Smoking status: Patient denies any tobacco usage or history of. ROS: 10/04 01:31 Constitutional: as per hpi Eyes: Negative for injury, pain, redness, and discharge, dr5 ENT: Moist mucous membranes. Cardiovascular: Negative for chest pain, palpitations, and edema, Respiratory: Negative for shortness of breath, cough, wheezing, and pleuritic chest pain, Abdomen/GI: Negative for abdominal pain, nausea, vomiting, diarrhea, and constipation, Back: Negative for injury and pain, Skin: Negative for injury, rash, and discoloration, Psych: Negative for depression, anxiety, suicide ideation, homicidal ideation, and hallucinations, Neuro: Negative for Exam: :31 Constitutional: This is a well developed, well nourished patient who is awake, alert, dr5 and in no acute distress. Head/Face: Normocephalic, atraumatic. Eyes: Pupils equal round and reactive to light, extra-ocular motions intact. Lids and lashes normal. Conjunctiva and sclera are non-icteric and not injected. Cornea within normal limits. Periorbital areas with no swelling, redness, or edema. Chest/axilla: Normal chest wall appearance and motion. Nontender with no deformity. No lesions are appreciated. Cardiovascular: Regular rate and rhythm with a normal S1 and S2. Normal PMI, no JVD. No pulse deficits. Respiratory: Lungs have equal breath sounds bilaterally, clear to auscultation. No rales, rhonchi or wheezes noted. No increased work of breathing, no retractions or nasal flaring. Back: No spinal tenderness. No costovertebral tenderness. Full range of motion. Skin: Warm, dry with normal turgor. Normal color with no rashes, no lesions, and no evidence of cellulitis. MS/ Extremity: Pulses equal, no cyanosis. Neurovascular intact. Full, normal range of motion. Psych: Awake, alert, with orientation to person, place and time. Behavior, mood, and affect are within normal limits. 01:31 Skin: lesion(s), Mild redness and tenderness to palpation noted to top of head consistent with mild cellulitis., 01:31 Neuro: Orientation: is normal, appropriate for stated age, Mentation: is normal, Memory: is normal, Cranial nerves: grossly normal, is grossly normal based on the patient's age, CN II- XII are normal as tested, Cerebellar function: is grossly normal, Vital Signs: 10/03 20:01 BP 185 / 100; Pulse 72; Resp 18; Temp 98.7; Pulse Ox 100% ; Weight 61.23 kg; Height 5 bm8 ft. 2 in. ; Pain 8/10; 21:26 BP 147 / 81; Pulse 65; Resp 18; Pulse Ox 95% ; cp4 23:28 BP 160 / 93; Pulse 63; Resp 18; Pulse Ox 94% ; cp4 10/04 00:05 BP 174 / 90; Pulse 63; Resp 18; Temp 98.7; Pulse Ox 93% ; Pain 3/10; bm8 10/03 20:01 Body Mass Index 24.69 (61.23 kg, 157.48 cm) bm8 10/03 20:01 Pain Scale: Adult bm8 10/04 00:05 Pain Scale: Adult bm8 [place] Coma Score: 00:05 Eye Response: spontaneous(4). Motor Response: obeys commands(6). Verbal Response: bm8 oriented(5). Total: 15. 01:31 Eye Response: spontaneous(4). Motor Response: obeys commands(6). Verbal Response: dr5 oriented(5). Total: 15. MDM: 10/03 19:46 Medical Screening Exam initiated dr5 10/04 01:31 Differential diagnosis: Intracranial hemorrhage, intracranial mass, electrolyte dr5 abnormality, cellulitis. Data reviewed: vital signs, nurses notes. I considered the following discharge prescriptions or medication management in the emergency department Medications were administered in the Emergency Department. See MAR. Care significantly affected by the following chronic conditions: CLL. Care significantly affected by the following Social Determinants of Health: Poor access to healthcare and/or lack of insurance, Poor access to transportation, Problems related to employment. Counseling: I had a detailed discussion with the patient and/or guardian regarding the historical points, exam findings, and any diagnostic results supporting the discharge/admit diagnosis, the presence of at least one elevated blood pressure reading (>120/80) during this emergency department visit, lab results, radiology results, the need for outpatient follow up, for definitive care, a family practitioner, a neurologist. Medication response: Benadryl, Reglan, Toradol. Response to treatment: the patient's symptoms have markedly improved after treatment. ED course: Will give patient course of antibiotics for cellulitis on top of head. Patient's headache has remarkably improved. Normal neurological exam on discharge. Patient is well-appearing. Recommended alternating Tylenol Motrin as needed for pain. Follow-up with primary care doctor this week.. 10/03 20:15 Order name: CBC with Diff; Complete Time: 21:44 dr5 10/03 20:15 Order name: CMP; Complete Time: 21:13 dr5 10/03 20:53 Order name: CBC Smear Scan; Complete Time: 21:44 EDMS 10/03 20:15 Order name: CT Head C Spine; Complete Time: 21:30 dr5 Administered Medications: 10/03 20:47 Drug: Ketorolac IVP 15 mg IVP once Route: IVP; Site: left hand; cp4 21:25 Follow up: Response: No adverse reaction; Pain is decreased cp4 20:47 Drug: morphine IVP or IV 4 mg IVP once over 4 mins Route: IVP; Infused Over: 4 mins; cp4 Site: left hand; 21:25 Follow up: Response: No adverse reaction cp4 20:47 Drug: Ondansetron IVP 4 mg IVP once; over 2 minutes Route: IVP; Site: left hand; cp4 21:25 Follow up: Response: No adverse reaction cp4 20:47 Drug: NS 0.9% IV 1000 ml IV at 1000 ml once; to be given as a bolus over 60 minutes cp4 Route: IV; Rate: 1000 ml; Site: left hand; 10/04 00:07 Follow up: Response: No adverse reaction; IV Status: Completed infusion; IV Intake: bm8 1000ml 10/03 23:12 Drug: metoCLOPramide IVP 10 mg IVP once; over 1 to 2 minutes Route: IVP; Site: left cp4 hand; 10/04 00:07 Follow up: Response: No adverse reaction bm8 10/03 23:12 Drug: diphenhydrAMINE IVP 25 mg IVP once Route: IVP; Site: left hand; cp4 10/04 00:06 Follow up: Response: No adverse reaction bm8 Disposition: 08:59 Co-signature as Attending Physician, Nick Nuñez MD I reviewed the patient's care rt provided by the Advanced Practice Provider and agree with the diagnosis and treatment plan. Disposition Summary: 10/03/24 23:59 Discharge Ordered Notes: Location: Home dr5 Condition: Stable dr5 Diagnosis - Headache dr5 - Cellulitis of head [any part, except face] dr5 Followup: dr5 - With: Emergency Department - When: As needed - Reason: Worsening of condition Followup: dr5 - With: Private Physician - When: 1 - 2 days - Reason: Recheck today's complaints, Continuance of care, Re-evaluation by your physician Discharge Instructions: - Discharge Summary Sheet dr5 - Cellulitis, Adult dr5 - Migraine Headache dr5 Forms: - Medication Reconciliation Form dr5 - Patient Portal Instructions dr5 - Leadership Thank You Letter dr5 Prescriptions: - Cephalexin 500 mg Oral Capsule - take 1 capsule ORAL route every 6 hours for 10 days; 40 capsule; Refills: 0, dr5 Product Selection Permitted - Tramadol 50 mg Oral Tablet - take 1 tablet ORAL route every 8 hours as needed; 12 tablet; Refills: 0, dr5 Product Selection Permitted Signatures: Dispatcher [employer] Nick Winters MD MD rt Potter, Christina cp4 Massimo Stein RN RN bm8 Duc Rubin, FACILITIES COORDINATOR-C FACILITIES COORDINATOR-Cdr5
[2024-10-04 09:16] VITALS: TEMP 98.7
[2024-10-04 09:20] VITALS: BP 174/90; O2SAT 93
== END 2024-10-04 00:08 | disposition home or self-care (01) ==
LOC: ER 19:40
DX: R51.9 Headache, unspecified (principal); L03.811 Cellulitis of head [any part, except face]
CPT/HCPCS: 36415; 70450; 72125; 80053; 85025; 96361; 96374; 96375; 99284; J1200; J2405; J2765; J7030

== ENCOUNTER 2025-01-17 17:20 | Emergency (ER) | payer OTHER, SELFPAY ==
[2025-01-17] MEDS ORDERED: ONDANSETRON 4 MG (ODT) TAB ONE (19:28)
[2025-01-17] MEDS ORDERED: HYDROCODONE/APAP 7.5/325 MG TAB ONE (19:28)
--- NOTE | 2025-01-17 20:00 | RAD REPORT ---
EXAMINATION: XR RIGHT SHOUDLER CLINICAL INDICATION: Male, 64 years old. PAIN RIGHT TECHNIQUE:Two view radiograph of the right shoulder were obtained. COMPARISON: No prior exam. FINDINGS: No acute bone or joint abnormality detected. Mild AC joint degenerative changes. [place] al joint is well aligned. IMPRESSION: No acute or significant abnormalities.
--- NOTE | 2025-01-17 20:01 | RAD REPORT ---
Exam: XR Forearm Right Clinical history: PAIN Technique: Radiographic views of the right forearm. Findings: No fracture or dislocation seen. No suspicious osseous lesion. No significant degenerative changes or erosions. Soft tissues are unremarkable.
--- NOTE | 2025-01-17 20:24 | RAD REPORT ---
EXAM: CT brain without contrast HISTORY: TRAUMA COMPARISON: 10/03/2024 TECHNIQUE: Multiple contiguous axial images were obtained and a CT of the brain without contrast. Sag ittal and coronal reformats were performed. FINDINGS: No evidence of hydrocephalus, intracranial hemorrhage, or extra-axial fluid collection. The brain is normal in morphology. The calvarium is intact. Moderate paranasal sinus mucosal thickening mastoid air cells are essentiall y clear. IMPRESSION: No evidence of acute intracranial abnormality. EXAM: CT of the cervical spine without contrast HISTORY: TRAUMA COMPARISON: None TECHNIQUE: Multiple contiguous axial images were obtained in a CT of the cervical spine without contr ast. Sagittal and coronal reformats were performed. FINDINGS: The vertebral bodies demonstrate normal height and alignment. No evidence of acute fracture or subluxation.. Moderate multilevel degenerative changes are present, contributing to up to moderate degrees of neural foraminal narrowing most pronounced bilaterally at C4-5, and on the left a t C5-6. No prevertebral soft tissue swelling is seen. The posterior facets are well aligned. Normal alignment of the skull base with the cervical spine is seen. The lung apices are unremarkable. IMPRESSION: No evidence of acute osseous abnormality of the cervical spine. Multilevel degenerative changes as ab ove.
--- NOTE | 2025-01-17 20:28 | EDPHYS ---
Physician Documentation [facility] Name: Wiley Anne Age: 64 yrs Sex: Male : 1960 Arrival Date: 01/17/2025 Time: 17:20 Bed 11 Private MD: ED Physician Gilberto Ordonez HPI: 01/17 19:09 This 64 yrs old Male presents to ER via Ambulatory with complaints of Head Injury sb4 Without LOC-Adult, Shoulder Pain - RT, Back Pain. 19:09 Patient states him and his were working on cutting a tree down when a large sb4 piece fell and hit him on the top of his head, causing him to land on the right side of his body. Denies any LOC. States that he did see "stars "and is feeling a little dizzy. Is also complaining of pain in his neck, right shoulder, and entire right arm. Historical: - Allergies: 18:29 No Known Allergies; cm10 - PMHx: 18:29 CLL; Oral chemotherapy; cm10 - PSHx: 18:29 abcess D/C; Cholecystectomy; cm10 - Immunization history:: Adult Immunizations up to date, Last tetanus immunization: < 5 years ago. - Infectious Disease History:: Denies. - Social history:: Smoking status: Patient denies any tobacco usage or history of. ROS: 19:22 Constitutional: Negative for fever, chills, and weight loss, sb4 19:22 MS/extremity: Positive for injury or acute deformity, decreased range of motion, pain, of the right arm, 19:22 Neuro: Positive for dizziness, headache, 19:22 All other systems are negative, Exam: 21:27 Head/Face: Normocephalic, atraumatic. Eyes: Extra-ocular motions intact. Periorbital sb4 areas with no swelling, redness, or edema. ENT: Mucous membranes moist. Cardiovascular: Regular rate and rhythm with a normal S1 and S2. Respiratory: No increased work of breathing, no retractions or nasal flaring. Abdomen/GI: Soft, non-tender, no distension. 21:27 Head/face: Noted is abrasion(s), that are mild, of the top of head, 21:27 Musculoskeletal/extremity: Joints: the right shoulder displays pain at rest, painful range of motion, Vital Signs: 18:27 BP 148 / 85; Pulse 57; Resp 16; Temp 98.3; Pulse Ox 97% ; Weight 61.23 kg; Height 5 ft. cm10 2 in. ; Pain 6/10; 20:30 BP 140 / 80; Pulse 64; Resp 18; Temp 97.6; Pulse Ox 98% on R/A; Pain 1/10; br2 18:27 Body Mass Index 24.69 (61.23 kg, 157.48 cm) cm10 18:27 Pain Scale: Adult cm10 20:30 Pain Scale: Adult br2 [place] Coma Score: 21:28 Eye Response: spontaneous(4). Motor Response: obeys commands(6). Verbal Response: sb4 oriented(5). Total: 15. MDM: 18:02 Medical Screening Exam initiated sb4 21:28 Data reviewed: vital signs, nurses notes, radiologic studies, and as a result, I will sb4 discharge patient. Counseling: I had a detailed discussion with the patient and/or guardian regarding the historical points, exam findings, and any diagnostic results supporting the discharge/admit diagnosis, the presence of at least one elevated blood pressure reading (>120/80) during this emergency department visit, radiology results, the need for outpatient follow up, for definitive care, to return to the emergency department if symptoms worsen or persist or if there are any questions or concerns that arise at home. 01/17 18:35 Order name: CT Head C Spine; Complete Time: 20:26 sb4 01/17 18:35 Order name: Shoulder Right (2 View) XRAY; Complete Time: 20:01 sb4 01/17 18:35 Order name: Forearm Right XRAY; Complete Time: 20:06 sb4 Administered Medications: 19:46 Drug: Hydrocodone-Acetaminophen PO (7.5 mg-325 mg) 1 tabs PO once Route: PO; kb3 20:15 Follow up: Response: No adverse reaction br2 19:46 Drug: Ondansetron PO 4 mg PO once Route: PO; kb3 20:15 Follow up: Response: No adverse reaction br2 Disposition Summary: 01/17/25 20:27 Discharge Ordered Notes: Location: Home sb4 Problem: new sb4 Symptoms: have improved sb4 Condition: Stable sb4 Diagnosis - Unspecified injury of head, initial encounter sb4 - Pain in right arm sb4 Followup: sb4 - With: Jordan Juarez MD - When: 1 week - Reason: Recheck today's complaints, Re-evaluation by your physician Discharge Instructions: - Discharge Summary Sheet sb4 - Shoulder Sprain sb4 - Head Injury, Adult, [id number] sb4 Forms: - Patient Portal Instructions sb4 - Leadership Thank You Letter sb4 Prescriptions: - ondansetron 4 mg Oral Tablet,disintegrating - take 1 tablet ORAL route every 6 hours; 10 tablet; Refills: 0, Product sb4 Selection Permitted - Tramadol 50 mg Oral Tablet - take 1 tablet ORAL route every 8 hours as needed; 12 tablet; Refills: 0, sb4 Product Selection Permitted Signatures: Dispatcher [employer] EDMS Larissa Araiza, RN RN kb3 Darlene Melo PA-C PA-C sb4 Iveth John RN RN cm10 Lia Pagan RN br2
--- NOTE | 2025-01-17 20:28 | ER ---
Nurse's Notes [facility] Name: Wiley Anne Age: 64 yrs Sex: Male : 1960 Arrival Date: 01/17/2025 Time: 17:20 Bed 11 Private MD: Diagnosis: Unspecified injury of head, initial encounter;Pain in right arm Presentation: 01/17 18:27 Chief complaint: Patient states: Tree fell on him and hit his head and right arm. Pt cm10 complaining of pain to arm, shoulder, back and head. No LOC. this happened at 1630. Coronavirus screen: Client denies travel out of the [place] in the last 14 days. Ebola Screen: Patient denies travel to an Ebola-affected area in the 21 days before illness onset. Initial Sepsis Screen: Does the patient meet any 2 criteria? No. Patient's initial sepsis screen is negative. Does the patient have a suspected source of infection? No. Patient's initial sepsis screen is negative. Risk Assessment: Do you want to hurt yourself or someone else? Patient reports no desire to harm self or others. Onset of symptoms was January 17, 2025. 18:27 Method Of Arrival: Ambulatory cm10 18:27 Acuity: JASMIN 3 cm10 Triage Assessment: 18:29 General: Appears in no apparent distress. comfortable, Behavior is calm, cooperative. cm10 Neuro: No deficits noted. Level of Consciousness is awake, alert, obeys commands, Oriented to person, place, time, situation, Appropriate for age. Respiratory: No deficits noted. Airway is patent Respiratory effort is even, unlabored, Respiratory pattern is regular, symmetrical. Historical: - Allergies: 18:29 No Known Allergies; cm10 - PMHx: 18:29 CLL; Oral chemotherapy; cm10 - PSHx: 18:29 abcess D/C; Cholecystectomy; cm10 - Immunization history:: Adult Immunizations up to date, Last tetanus immunization: < 5 years ago. - Infectious Disease History:: Denies. - Social history:: Smoking status: Patient denies any tobacco usage or history of. Assessment: 20:40 Reassessment: Patient and/or family updated on plan of care and expected duration. Pain br2 level reassessed. Patient is alert, oriented x 3, equal unlabored respirations, skin warm/dry/pink. Patient states feeling better. Patient states symptoms have improved. Vital Signs: 18:27 BP 148 / 85; Pulse 57; Resp 16; Temp 98.3; Pulse Ox 97% ; Weight 61.23 kg; Height 5 ft. cm10 2 in. ; Pain 6/10; 20:30 BP 140 / 80; Pulse 64; Resp 18; Temp 97.6; Pulse Ox 98% on R/A; Pain 1/10; br2 18:27 Body Mass Index 24.69 (61.23 kg, 157.48 cm) cm10 18:27 Pain Scale: Adult cm10 20:30 Pain Scale: Adult br2 [place] Coma Score: 21:28 Eye Response: spontaneous(4). Motor Response: obeys commands(6). Verbal Response: sb4 oriented(5). Total: 15. ED Course: 17:27 Patient arrived in ED. cj3 17:58 [facility]arl[facility] Melo [facility]. sb4 17:58 Gilberto Ordonez MD is Attending Physician. sb4 18:28 Triage completed. cm10 18:29 Arm band placed on right wrist. Patient placed in waiting room. cm10 19:07 Shoulder Right (2 View) XRAY In Process Unspecified. EDMS 19:07 Forearm Right XRAY In Process Unspecified. EDMS 19:42 CT Head C Spine In Process Unspecified. EDMS 19:57 Lia Pagan, MOSES is Primary Nurse. br2 20:27 Jordan Juarez MD is Referral Physician. sb4 Administered Medications: 19:46 Drug: Hydrocodone-Acetaminophen PO (7.5 mg-325 mg) 1 tabs PO once Route: PO; kb3 20:15 Follow up: Response: No adverse reaction br2 19:46 Drug: Ondansetron PO 4 mg PO once Route: PO; kb3 20:15 Follow up: Response: No adverse reaction br2 Outcome: 20:27 Discharge ordered by . sb4 20:46 Discharged to br2 20:46 Condition: improved 20:46 Discharge instructions given to patient, Instructed on discharge instructions, follow up and referral plans. Demonstrated understanding of instructions, follow-up care, medications, Prescriptions given X 2, 20:52 Patient left the ED. br2 Signatures: Dispatcher [employer] EDMS Larissa Araiza, RN RN Sera Asencioia, VIGNESH PAAnatoliyC sb4 Iveth John, RN RN cm10 Lia Pagan, RN RN br2 Alessandra Carrillo 3
[2025-01-17 21:07] VITALS: BP 148/85; TEMP 98.3; O2SAT 97
== END 2025-01-17 20:52 | disposition home or self-care (01) ==
LOC: ER 17:20
DX: S00.01XA Abrasion of scalp, initial encounter (principal); M79.601 Pain in right arm; M54.2 Cervicalgia; W22.8XXA Striking against or struck by other objects, initial encounter
CPT/HCPCS: 70450; 72125; 73090; 73030; 99283; Q0162